=== PATIENT | female | born 1935 | race African-American/Black ===

== ENCOUNTER 2016-04-27 12:43 | Inpatient (IN) | payer MEDICARE, MEDICAID, OTHER ==
[~2016-04-27] VITALS: Ht 167.6 cm; Wt 68.0 kg
[~2016-04-27 12:43] MED LIST: ACIDOPHILUS-PE1 EACH PO; AGGRENOX1 CAP ORAL; APRESOLINE50 MG ORAL; ASPIRIN EC81 MG ORAL; BACTRIM DS TAB1 EAC1 ORAL; BENAZEPRIL HCL40 MG ORAL; CATAPRES0.1 MG ORAL; CENTRUM COMPLE1 EAC1 PO; DIABETA5 MG ORAL; ECOTRIN81 MG ORAL; FERROUS SULFAT325 MG ORAL; HEPARIN SO5000 UNIT2 SUBQ; HYDRALAZINE HC100 MG ORAL; HYDREA500 MG ORAL; KEFLEX750 MG PO; LEVOTHYROXINE125 MCG ORAL; LEVOTHYROXINE75 MCG ORAL; LIPITOR20 MG ORAL; LISINOPRIL20 MG ORAL; METFORMIN HCL1000 M1 ORAL; METOPROLOL SUCC50 MG ORAL; NAMENDA ORAL; NAMENDA10 MG ORAL; NORVASC5 MG ORAL; NOVOLOG100 UNITS1; NS Irrig 1000ml ONE; PLAVIX75 MG ORAL; PRAVASTATIN SOD20 M1 ORAL; RANITIDINE HCL150 MG ORAL; ROCEPHIN250 MG IM; SYNTHROID150 MCG ORAL; Sterile Water Irrig 1000ml IRRIG ONE; TYLENOL #21 EA ORAL; TYLENOL325 MG ORAL
[2016-04-27 14:14] VITALS: BP 124/74
[2016-04-27 14:43] LABS: MEAN CORPUSCULAR HEMOGLOBIN 26.4 PG (27.0-31.0); MEAN CORPUSCULAR HGB CONC 31.1 G/DL (32.0-36.0); MEAN CORPUSCULAR VOLUME 85 FL (80-99); MEAN PLATELET VOLUME 6.8 FL (6.5-10.1); PLATELET COUNT 857 K/UL (150-450); RED BLOOD COUNT 4.82 M/UL (4.20-5.40); RED CELL DISTRIBUTION WIDTH 17.2 % (11.6-14.8); WHITE BLOOD COUNT 11.2 K/UL (4.8-10.8)
[2016-04-27 14:51] LABS: INR 1.1 (0.9-1.1); PROTHROMBIN TIME 10.7 SEC (9.30-11.50)
[2016-04-27 14:59] LABS: ALANINE AMINOTRANSFERASE 8 U/L (3-33); ALBUMIN/GLOBULIN RATIO 0.6 (1.0-2.7); ANION GAP 15 (5-15); ASPARTATE AMINO TRANSFERASE 18 U/L (5-40); CALCIUM 9.6 mg/dL (8.6-10.2); CARBON DIOXIDE 24 mEQ/L (20-30); CHLORIDE 98 mEQ/L (98-107); CREATININE 0.6 mg/dL (0.5-0.9); HEMOLYSIS 64; POTASSIUM 4.9 mEQ/L (3.4-4.9); SODIUM 137 mEQ/L (135-145); TOTAL PROTEIN 7.6 g/dL (6.6-8.7)
[2016-04-27 15:15] VITALS: BP 142/44
[2016-04-27] MEDS ORDERED: Vancomycin 1gm inj IVPB ONE (15:16)
[2016-04-27 15:49] LABS: BAND NEUTROPHILS % (MANUAL) 1 % (0-8); BASOPHILS % (MANUAL) 1 % (0-2); EOSINOPHILS % (MANUAL) 5 % (0-3); LYMPHOCYTES % (MANUAL) 26 % (20-45); NEUTROPHILS % (MANUAL) 56 % (45-75); NUCLEATED RED BLOOD CELLS 1 /100 WBC; PLATELET ESTIMATE INCREASED; TOTAL CELLS COUNTED 100
[2016-04-27 15:50] LABS: ANISOCYTOSIS 2+; HYPOCHROMASIA 2+; PLATELET MORPHOLOGY NORMAL; POLYCHROMASIA 1+
--- NOTE | 2016-04-27 15:58 | Emergency Room Report ---
History of Present Illness General Chief Complaint: General Complaint Source: Medical Record, EMS, PMD Present Illness HPI This patient presents from a [facility] facility. She has a history of a chronic stage IV sacral decubitus ulcer. She is sent over by her primary care physician because of concern of infection and worsening of the ulcer. The ulcer had been revised and the flap was placed and the wound dehisced. The nursing staff is very concerned that the wound is getting worse and there is more discharge. The patient herself has no specific complaint. There is no fever or chills. There is no nausea or vomiting. Allergies: Coded Allergies: HYDROMORPHONE (Verified Allergy, Unknown, 09/21/14) MORPHINE (Unverified Allergy, Unknown, 04/27/16) Patient History Past Medical History: see triage record, DM, HTN, dementia Past Surgical History: other - Sacral DU flap placement Social History: Denies: alcohol use, drug use, smoking Reviewed Nursing Documentation: PMH: Agreed, PSxH: Agreed Nursing Documentation-PMH Past Medical History: No History, Except For Hx Hypertension: Yes Hx Diabetes: Yes Hx Cancer: No Hx Gastrointestinal Problems: Yes Hx Cerebrovascular Accident: Yes Hx Dementia: Yes Hx Memory Loss: Yes Hx Weakness: Yes Review of Systems All Other Systems: negative except mentioned in HPI Physical Exam Vital Signs Date Time Temp Pulse Resp B/P Pulse Ox O2 Delivery O2 Flow Rate FiO2 04/27/16 12:42 98.1 60 18 180/74 99 Room Air Sp02 EP Interpretation: reviewed, normal General Appearance: no apparent distress, alert, GCS 15, non-toxic Head: normocephalic, atraumatic Eyes: bilateral eye PERRL, bilateral eye normal inspection ENT: hearing grossly normal, normal pharynx, no angioedema, normal voice Neck: full range of motion, supple/symm/no masses Respiratory: chest non-tender, lungs clear, normal breath sounds, speaking full sentences Cardiovascular #1: regular rate, rhythm, no edema Gastrointestinal: normal bowel sounds, non tender, soft, non-distended, no guarding, no rebound Rectal: deferred Musculoskeletal: back normal, normal range of motion, non-tender Neurologic: alert, oriented x3, responsive, motor strength/tone normal, sensory intact, speech normal Psychiatric: mood/affect normal Skin: other - Stage IV sacral decubitus ulcer. The wound is edematous and erythematous with discharge and dehiscence of the flap. There is thick yellow discharge. Medical Decision Making Diagnostic Impression: Primary Impression: Decubitus ulcer, stage 4 with infection ER Course Patient has an ongoing stage IV decubitus ulcer. I am unsure of the progression of this decubitus ulcer, however it doesn't appear infected with surrounding edema and erythema. There is also dehiscence of the flap had been previously placed here. The patient will be admitted for further evaluation by the surgeon who initially placed the flap. Labs Test 04/27/16 14:15 White Blood Count 11.2 K/UL (4.8-10.8) Red Blood Count 4.82 M/UL (4.20-5.40) Hemoglobin 12.7 G/DL (12.0-16.0) Hematocrit 40.8 % (37.0-47.0) Mean Corpuscular Volume 85 FL (80-99) Mean Corpuscular Hemoglobin 26.4 PG (27.0-31.0) Mean Corpuscular Hemoglobin Concent 31.1 G/DL (32.0-36.0) Red Cell Distribution Width 17.2 % (11.6-14.8) Platelet Count 857 K/UL (150-450) Mean Platelet Volume 6.8 FL (6.5-10.1) Neutrophils (%) (Auto) % (45.0-75.0) Lymphocytes (%) (Auto) % (20.0-45.0) Monocytes (%) (Auto) % (1.0-10.0) Eosinophils (%) (Auto) % (0.0-3.0) Basophils (%) (Auto) % (0.0-2.0) Differential Total Cells Counted 100 Neutrophils % (Manual) 56 % (45-75) Lymphocytes % (Manual) 26 % (20-45) Monocytes % (Manual) 11 % (1-10) Eosinophils % (Manual) 5 % (0-3) Basophils % (Manual) 1 % (0-2) Band Neutrophils 1 % (0-8) Nucleated Red Blood Cells 1 /100 WBC Platelet Estimate Increased Platelet Morphology Normal Polychromasia 1+ Hypochromasia 2+ Anisocytosis 2+ Prothrombin Time 10.7 SEC (9.30-11.50) Prothromb Time International Ratio 1.1 (0.9-1.1) Activated Partial Thromboplast Time 25 SEC (23-33) Sodium Level 137 mEQ/L (135-145) Potassium Level 4.9 mEQ/L (3.4-4.9) Chloride Level 98 mEQ/L (98-107) Carbon Dioxide Level 24 mEQ/L (20-30) Anion Gap 15 (5-15) Blood Urea Nitrogen 15 mg/dL (7-23) Creatinine 0.6 mg/dL (0.5-0.9) Estimat Glomerular Filtration Rate mL/min (>60) Glucose Level 112 mg/dL (74-106) Calcium Level 9.6 mg/dL (8.6-10.2) Total Bilirubin 0.5 mg/dL (0.0-1.2) Aspartate Amino Transf (AST/SGOT) 18 U/L (5-40) Alanine Aminotransferase (ALT/SGPT) 8 U/L (3-33) Alkaline Phosphatase 53 U/L (35-104) Total Protein 7.6 g/dL (6.6-8.7) Albumin 3.1 g/dL (3.5-5.2) Globulin 4.5 g/dL Albumin/Globulin Ratio 0.6 (1.0-2.7) EKG Diagnostic Results Rate: normal Rhythm: NSR ST Segments: no acute changes Rhythm Strip Diag. Results EP Interpretation: yes Rate: 60's Rhythm: NSR, no PVC's, no ectopy Last Vital Signs Date Time Temp Pulse Resp B/P Pulse Ox O2 Delivery O2 Flow Rate FiO2 04/27/16 15:15 98.1 63 16 142/44 95 Room Air Disposition: ADMITTED INPATIENT Condition: Stable Referrals: ISIDORO BYRNE (PCP) DEIRDRE SIMPSON D.O. Apr 27, 2016 15:58
[2016-04-27 20:00] VITALS: BP 146/70
[2016-04-27] MEDS: Atorvastatin 20mg tab ORAL SCH (20:07)
[2016-04-27] MEDS: Heparin 5000 units/ml inj SUBQ SCH (20:09)
[2016-04-27] MEDS: NovoLOG Insulin Flexpen SUBQ SCH (21:00)
[2016-04-27] MEDS: Lactobacillus-GG tablet ORAL SCH (21:23)
[2016-04-27] MEDS: Aggrenox Cap ORAL SCH (22:17)
[2016-04-27] MEDS ORDERED: Cefepime 1gm vial ONE (23:52)
[2016-04-27 23:55] VITALS: BP 128/69
--- NOTE | 2016-04-28 03:28 | History and Physical Report ---
DATE OF ADMISSION: 04/27/2016 REASON FOR ADMISSION: Wound dehiscence. HISTORY OF PRESENT ILLNESS: This is an 81-year-old female, who has been at a detention facility. She has a stage IV sacral decubitus and recently underwent debridement and flap placement. The wound apparently dehisced and despite wound care at the detention facility, has noted increasing drainage and more dehiscence. The patient has not had any fever or chills. Once, she has had somewhat of a decreased appetite. She has not had any other constitutional symptoms. PAST MEDICAL HISTORY: Cerebrovascular disease with prior cerebrovascular accident, multi-infarct dementia, non-insulin dependant diabetes mellitus, chronic kidney disease, gastroesophageal reflux disease, hypertension with hypertensive heart disease, history of malignant-range high blood pressure, diabetic neuropathy, hypothyroidism. MEDICATIONS: Prior to admission, reviewed and reconciled. ALLERGIES: None. SOCIAL HISTORY: No smoking, alcohol, or substance abuse. She lives with son. FAMILY HISTORY: Noncontributory. REVIEW OF SYSTEMS: A 12-point review of systems performed. All systems negative other than data noted above. PHYSICAL EXAMINATION: VITAL SIGNS: Afebrile, blood pressure 180/74, pulse 60, and respirations 18. HEENT: Temporal wasting. Pale conjunctivae. Arcus senilis. Oropharynx clear. Mucous membranes dry. NECK: Supple. Jugular venous pressure normal. LUNGS: Clear. CARDIAC: Regular rhythm and rate. Normal S1 and S2 with a fourth heart sound. ABDOMEN: Soft and nontender. EXTREMITIES: No pitting edema. Sacral ulcer sites has edema, erythema, and yellow discharge. LABORATORY DATA: White count 11.2 and hemoglobin 12.7. Sodium 137, potassium 4.9, bicarbonate 34, BUN 15, and creatinine 0.6. IMPRESSION: 1. Infected sacral decubitus, rule out osteomyelitis. 2. Status post flap with wound dehiscence. 3. Type 2 diabetes mellitus. 4. Chronic kidney disease. 5. Hypertensive heart disease. 6. Hypothyroidism. 7. Cerebrovascular disease with multiple cerebrovascular accidents and dementia. PLAN: 1. Culture. 2. Wound care evaluation. 3. Surgical evaluation. 4. Empiric antibiotics. 5. Titrate antihypertensive regimen. 6. Titrate insulin coverage for blood glucose control. 7. Further recommendation will follow once preliminary studies are available and consultations have been reviewed. Darius Duran M.D. DR: SARAI JOB#: [id number] CC:
[2016-04-28 04:00] VITALS: BP 131/73
[2016-04-28] MEDS: Lactobacillus-GG tablet ORAL SCH ×3 (05:47→21:09)
[2016-04-28] MEDS: NovoLOG Insulin Flexpen SUBQ SCH ×4 (05:47→21:11)
[2016-04-28 08:00] VITALS: BP 132/76
[2016-04-28] MEDS: Aggrenox Cap ORAL SCH ×2 (09:00→21:09)
[2016-04-28] MEDS: metFORMIN 500mg tab ORAL SCH ×2 (09:01→17:43)
[2016-04-28] MEDS: Memantine 10mg tab ORAL SCH (09:01)
[2016-04-28] MEDS: Lisinopril 20mg tab ORAL SCH (09:03)
[2016-04-28] MEDS: Heparin 5000 units/ml inj SUBQ SCH ×2 (09:04→21:12)
[2016-04-28 12:00] VITALS: BP 152/59
--- NOTE | 2016-04-28 15:28 | Consultation ---
DATE OF CONSULTATION: 04/28/2016 INFECTIOUS DISEASES CONSULTATION REFERRING PHYSICIAN: Darius Duran M.D. REASON FOR CONSULTATION: Infected decubitus ulcers. HISTORY OF PRESENTING ILLNESS: This is an 81-year-old lady with history of CVA, dementia, diabetes, chronic kidney disease who recently had a sacral decubitus ulcer debridement and flap placement, apparently the wound has dehisced and she has had increasing drainage and an Infectious Diseases consultation has been obtained for antibiotics. PAST MEDICAL HISTORY: 1. History of CVA. 2. Dementia. 3. Diabetes. 4. Chronic kidney disease. 5. GERD. 6. Hypertension. 7. Diabetic neuropathy. 8. Hypothyroidism. MEDICATIONS: As an inpatient, she is on IV vancomycin, ferrous sulfate, lisinopril, Namenda, metformin metoprolol, levothyroxine, cefepime, Lactobacillus, amlodipine, Lipitor, dipyridamole aspirin, subcutaneous heparin, insulin, Ultram, and Tylenol. ALLERGIES: 1. Hydromorphone. 2. Morphine. SOCIAL HISTORY: No history of smoking, alcohol, or drug use. FAMILY HISTORY: Noncontributory. REVIEW OF SYSTEMS: Unable to obtain currently. PHYSICAL EXAMINATION: VITAL SIGNS: Temperature of 97.7, T-max of 98.1, pulse of 77, respiratory rate 18, blood pressure 139/79, O2 saturation of 98%. HEENT: Pupils are equally reactive to light and accommodation. Mouth appears clean without thrush. NECK: Supple. No adenopathy. No JVD. CARDIOVASCULAR: Regular rate and rhythm. No murmurs. LUNGS: Clear to auscultation bilaterally. No crackles. No wheezes. ABDOMEN: Soft and nontender. No organomegaly. EXTREMITIES: No cyanosis. No clubbing. No edema. Skin flap breakdown noted over the sacrum. LABORATORY DATA: White count 11.2, hemoglobin 12.7, hematocrit 40.8, MCV 85, platelet count . Sodium 137, potassium 4.9, chloride 98, bicarbonate 24, BUN 15, creatinine 0.6, glucose 112. Calcium 9.6. Total bilirubin 0.5, AST 18, ALT 8, alkaline phosphatase 53, total protein 7.6, and albumin 3.1. ASSESSMENT: 1. This is an 81-year-old lady with history of cerebrovascular accident, hypertension, diabetes who came in with breakdown of the sacral flap after undergoing debridement for sacral decubitus ulcer, would be concerned regarding recurrent infection 2. Hypertension. PLAN: 1. Continue vancomycin and cefepime. 2. We would suggest a plastic surgery evaluation. 3. We will follow up cultures. I would like to thank, Dr. Duran, for this consultation. Rhett Torres M.D. DR: Ann-Marie JOB#: [id number] CC: Darius Duran M.D.
[2016-04-28] MEDS: Vancomycin 1gm in D5W 250ml IVPB SCH (15:59)
[2016-04-28 16:00] VITALS: BP 134/61
--- NOTE | 2016-04-28 16:50 | Anethesia Preoperative Eval ---
Anesthesia Pre-op PMH/ROS General Date of Evaluation: Apr 28, 2016 Time of Evaluation: 16:32 Anesthesiologist: Sidney ASA Score: ASA 4 Mallampati Score Class I : Soft palate, uvula, fauces, pillars visible Class II: Soft palate, uvula, fauces visible Class III: Soft palate, base of uvula visible Class IV: Only hard plate visible Mallampati Classification: Class III Surgeon: Doris Diagnosis: Sacral Decubitus Ulcer Surgical Procedure: Repair Sacral Decubitus Ulcer Anesthesia History: none Social History: smoking Family History: no anesthesia problems Allergies: Coded Allergies: HYDROMORPHONE (Verified Allergy, Unknown, 09/21/14) MORPHINE (Unverified Allergy, Unknown, 04/27/16) Medications: see eMAR Past Medical History Cardiovascular: Reports: HTN Gastrointestinal/Genitourinary: Reports: CRI, GERD Neurologic/Psychiatric: Reports: CVA, dementia Endocrine: Reports: DM, hypothyroidism HEENT: Reports: cataract (L), cataract (R) PSxH Narrative: Sacral Flap Anesthesia Pre-op Phys. Exam Physician Exam Last Vital Signs Date Time Temp Pulse Resp B/P Pulse Ox O2 Delivery O2 Flow Rate FiO2 04/28/16 12:00 98.2 61 22 152/59 98 Room Air Constitutional: NAD Neurologic: CN 2-12 intact Cardiovascular: RRR Respiratory: CTA Gastrointestinal: S/NT/ND Airway Exam Mallampati Score: Class III MO: limited ROM: limited Teeth: missing Anesthesia Pre-op A/P Risk Assessment & Plan Assessment: ASA 4 Plan: GA Status Change Before Surgery: No Pre-Antibiotics Drug: Chidi Peterson MD Apr 28, 2016 16:50
--- NOTE | 2016-04-28 18:53 | Wound Care Consultation ---
Wound Assessment Wound Assessment : Wound Present on Admission: Yes New Wound: No Status Change of Wound: No Wound Location Body Site Modif: mid Wound Location Body Site: sacral Wound Type: pressure ulcer Gloria Test: Does not Gloria Pressure Ulcer Stage: IV/unstageable Wound Thickness: Full Thickness Wound Length: 8.0 Wound Width: 7.0 Wound Depth: 3.0 Percent of Wound [place]/Red: 80 Percent of Wound Bed Yellow/Wh: 20 Wound Drainage Description: Serosanguineous Wound Drainage Amount: Moderate Wound Drainage Odor: None/Absent Tissue Surrounding Wound: Macerated Wound Undermining at 12:00: 2.5 Wound Undermining at 3:00: 4.5 Wound Undermining at 6:00: 4.0 Wound General Appearance: Reddened, Draining, Unapproximated Wound Comment #1 Sacral stage IV pressure ulcer. s/p flap and debridement. Flap with viable tissue. Recommendation -Local wound care as ordered by Dr George every 12hrs wet to dry using Dakin' s solutions -Keep clean and dry -Turn and reposition -Optimize nutrition -Offload both heels -Low air loss overlay mattress -Assess and f/u with ISRAEL Hernandez RN Apr 28, 2016 18:53
--- NOTE | 2016-04-28 19:08 | Consultation ---
DATE OF CONSULTATION: FOLLOWUP SURGICAL CONSULTATION HISTORY OF PRESENT ILLNESS: The patient is an elderly female with multiple medical problems, chronic dementia, and immobility. I did a flap up on her sacral area for a nonhealing wound which was done approximately a month ago. She had some breakdown of the area after surgery which appeared initially at one week ago. She then cared for in a [facility] and at this point was admitted because there was concern about infection of the wound. The other issue was that the dehiscence was increasing. I evaluated the wound and discussed the plan with the wound care nurse. The wound is actually relatively clean and I will use Dakin solution wet-to-dry dressings over the next several days to prepare the wound for surgical closure. It should be possible to repair the open portion of the wound at that point. I will re-evaluate the wound over the course of the next several days to determine the appropriate time for the closure. Herbert George M.D. DR: Sanjay JOB#: [id number] CC:
[2016-04-28 20:00] VITALS: BP 144/64
[2016-04-28] MEDS: Atorvastatin 20mg tab ORAL SCH (21:10)
[2016-04-28] MEDS: Dakin's 0.125% Soln (Quarter Strength) 16oz TOPIC SCH (21:15)
[2016-04-29] VITALS: BP 135/67
[2016-04-29 04:00] VITALS: BP 141/74
[2016-04-29] MEDS: NovoLOG Insulin Flexpen SUBQ SCH ×4 (05:59→21:18)
[2016-04-29] MEDS: Lactobacillus-GG tablet ORAL SCH ×3 (05:59→21:16)
[2016-04-29 07:13] LABS: EOSINOPHILS % (AUTO) 2.3 % (0.0-3.0); LYMPHOCYTES % (AUTO) 41.4 % (20.0-45.0); MEAN CORPUSCULAR HEMOGLOBIN 26.9 PG (27.0-31.0); MEAN CORPUSCULAR HGB CONC 33.3 G/DL (32.0-36.0); MEAN CORPUSCULAR VOLUME 81 FL (80-99); MEAN PLATELET VOLUME 6.6 FL (6.5-10.1); MONOCYTES % (AUTO) 8.6 % (1.0-10.0); NEUTROPHILS % (AUTO) 45.8 % (45.0-75.0); PLATELET COUNT 770 K/UL (150-450); RED BLOOD COUNT 4.03 M/UL (4.20-5.40); RED CELL DISTRIBUTION WIDTH 16.8 % (11.6-14.8); WHITE BLOOD COUNT 9.8 K/UL (4.8-10.8)
[2016-04-29 07:22] LABS: ALANINE AMINOTRANSFERASE 5 U/L (3-33); ALBUMIN/GLOBULIN RATIO 0.7 (1.0-2.7); ANION GAP 15 (5-15); ASPARTATE AMINO TRANSFERASE 11 U/L (5-40); CALCIUM 9.2 mg/dL (8.6-10.2); CARBON DIOXIDE 25 mEQ/L (20-30); CHLORIDE 98 mEQ/L (98-107); CREATININE 0.5 mg/dL (0.5-0.9); HEMOLYSIS 1; MAGNESIUM 1.2 mg/dL (1.7-2.5); POTASSIUM 4.1 mEQ/L (3.4-4.9); SODIUM 138 mEQ/L (135-145); TOTAL PROTEIN 6.8 g/dL (6.6-8.7)
[2016-04-29 08:25] VITALS: BP 135/57
[2016-04-29] MEDS: metFORMIN 500mg tab ORAL SCH ×2 (08:52→18:07)
[2016-04-29] MEDS: Aggrenox Cap ORAL SCH ×2 (08:52→21:16)
[2016-04-29] MEDS: traMADol 50mg tab ORAL PRN (08:54)
[2016-04-29] MEDS: Memantine 10mg tab ORAL SCH (08:54)
[2016-04-29] MEDS: Lisinopril 20mg tab ORAL SCH (08:56)
[2016-04-29] MEDS: Heparin 5000 units/ml inj SUBQ SCH ×2 (08:58→21:18)
[2016-04-29] MEDS: Dakin's 0.125% Soln (Quarter Strength) 16oz TOPIC SCH ×2 (09:19→21:15)
--- NOTE | 2016-04-29 09:49 | Wound Care Consultation ---
Wound Assessment Wound Assessment : Wound Present on Admission: Yes New Wound: No Status Change of Wound: No Wound Location Body Site Modif: mid Wound Location Body Site: sacral Wound Type: pressure ulcer Gloria Test: Does not Gloria Pressure Ulcer Stage: IV/unstageable Wound Thickness: Full Thickness Wound Length: 8.0 Wound Width: 7.0 Wound Depth: 3.0 Percent of Wound [place]/Red: 80 Percent of Wound Bed Yellow/Wh: 20 Wound Drainage Description: Serosanguineous Wound Drainage Amount: Moderate Wound Drainage Odor: Mild Odor Tissue Surrounding Wound: Macerated Wound Undermining at 12:00: 2.5 Wound Undermining at 3:00: 4.5 Wound Undermining at 6:00: 4.0 Wound General Appearance: Reddened, Draining, Unapproximated Wound Comment Wound care dressing provided as ordered. Tolerated treatment well. Flap with viable Tissue. Patient repositioned to offload Sacral site. Patient bed in lowest position and bed alarm in place,call light placed within reach. SMAMIE BARLOW Apr 29, 2016 09:49
[2016-04-29 12:03] VITALS: BP 132/60
[2016-04-29] MEDS: Vancomycin 1gm in D5W 250ml IVPB SCH (14:08)
--- NOTE | 2016-04-29 15:14 | Infectious Diseases Prog Note ---
Assessment/Plan Assessment/Plan A; infected sacral ulcer Wound dehiscence DM HPN MRSA & VRE colonization P: continue Cefepime & Vancomycin will f/u cultures Subjective ROS Limited/Unobtainable: Yes Allergies: Coded Allergies: HYDROMORPHONE (Verified Allergy, Unknown, 09/21/14) MORPHINE (Unverified Allergy, Unknown, 04/27/16) Objective Vital Signs Last 24 Hour Vital Signs Date Time Temp Pulse Resp B/P Pulse Ox O2 Delivery O2 Flow Rate FiO2 04/29/16 12:03 98.5 76 20 132/60 98 Room Air 04/29/16 08:56 135/57 04/29/16 08:55 74 135/57 04/29/16 08:55 74 135/57 04/29/16 08:25 98.4 74 20 135/57 98 Room Air 04/29/16 04:00 97.7 70 19 141/74 96 Room Air 04/29/16 00:00 97.7 68 20 135/67 97 Room Air 04/28/16 21:10 76 144/64 04/28/16 20:00 98.0 76 18 144/64 97 Room Air 04/28/16 16:00 97.9 72 18 134/61 97 Room Air Height (Feet): 5 Height (Inches): 6.00 Weight (Pounds): 150 General Appearance: no acute distress HEENT: mucous membranes moist Respiratory/Chest: lungs clear Cardiovascular: normal rate Abdomen: soft, non tender Genitourinary: other - Patel catheter Skin: ulcers, other - sacral Neurologic/Psychiatric: alert, responsive Microbiology Date/Time Source Procedure Growth Status 04/28/16 12:00 Wound Gram Stain - Final Resulted 04/28/16 12:00 Wound Wound Culture Pending Resulted 04/27/16 14:28 Nasal Nares MRSA Culture - Final Staphylococcus Aureus - Mrsa Complete 04/27/16 14:28 Rectum VRE Culture - Final Enterococcus Faecium - Vre Complete Laboratory Tests Test 04/29/16 04:45 White Blood Count 9.8 K/UL (4.8-10.8) Red Blood Count 4.03 M/UL (4.20-5.40) L Hemoglobin 10.8 G/DL (12.0-16.0) L Hematocrit 32.5 % (37.0-47.0) L Mean Corpuscular Volume 81 FL (80-99) Mean Corpuscular Hemoglobin 26.9 PG (27.0-31.0) L Mean Corpuscular Hemoglobin Concent 33.3 G/DL (32.0-36.0) Red Cell Distribution Width 16.8 % (11.6-14.8) H Platelet Count 770 K/UL (150-450) H Mean Platelet Volume 6.6 FL (6.5-10.1) Neutrophils (%) (Auto) 45.8 % (45.0-75.0) Lymphocytes (%) (Auto) 41.4 % (20.0-45.0) Monocytes (%) (Auto) 8.6 % (1.0-10.0) Eosinophils (%) (Auto) 2.3 % (0.0-3.0) Basophils (%) (Auto) 2.0 % (0.0-2.0) Sodium Level 138 mEQ/L (135-145) Potassium Level 4.1 mEQ/L (3.4-4.9) Chloride Level 98 mEQ/L (98-107) Carbon Dioxide Level 25 mEQ/L (20-30) Anion Gap 15 (5-15) Blood Urea Nitrogen 12 mg/dL (7-23) Creatinine 0.5 mg/dL (0.5-0.9) Estimat Glomerular Filtration Rate mL/min (>60) Glucose Level 97 mg/dL (74-106) Calcium Level 9.2 mg/dL (8.6-10.2) Magnesium Level 1.2 mg/dL (1.7-2.5) L Total Bilirubin 0.4 mg/dL (0.0-1.2) Aspartate Amino Transf (AST/SGOT) 11 U/L (5-40) Alanine Aminotransferase (ALT/SGPT) 5 U/L (3-33) Alkaline Phosphatase 46 U/L (35-104) Total Protein 6.8 g/dL (6.6-8.7) Albumin 2.9 g/dL (3.5-5.2) L Globulin 3.9 g/dL Albumin/Globulin Ratio 0.7 (1.0-2.7) L Thyroid Stimulating Hormone (TSH) 15.720 uIU/mL (0.300-4.500) Current Medications Medications (Trade) Dose Ordered Sig/Rupert Route PRN Reason Start Time Stop Time Status Last Admin Dose Admin Acetaminophen (Tylenol) 650 mg Q6H PRN ORAL Mild Pain/Temp > 100.5 04/27/16 19:30 05/27/16 19:29 Amlodipine Besylate (Norvasc) 5 mg Q12HR ORAL 04/27/16 21:00 05/27/16 20:59 04/29/16 08:55 Atorvastatin Calcium (Lipitor) 20 mg BEDTIME ORAL 04/27/16 21:00 05/27/16 20:59 04/28/16 21:10 Cefepime HCl/ Dextrose (Maxipime/D5W 50ml) 50 ml @ 100 mls/hr Q24H IVPB 04/27/16 23:30 05/04/16 23:29 04/28/16 22:51 Dextrose (Dextrose 50%) STAT PRN IV Hypoglycemia 04/27/16 20:00 05/27/16 19:59 Dipyridamole/ Aspirin (Aggrenox) 1 cap Q12HR ORAL 04/27/16 21:00 05/27/16 20:59 04/29/16 08:52 Ferrous Sulfate (Feosol) 325 mg THREE TIMES A DAY ORAL 04/28/16 09:00 05/28/16 08:59 04/29/16 14:07 Heparin Sodium (Porcine) (Heparin 5000 units/ml) 5,000 units EVERY 12 HOURS SUBQ 04/27/16 21:00 05/27/16 20:59 04/29/16 08:58 Insulin Aspart (NovoLOG) BEFORE MEALS AND HS SUBQ 04/27/16 21:00 05/27/16 20:59 04/29/16 11:46 Lactobacillus Acidophilus (Culturelle) 1 tab Q8HR ORAL 04/27/16 22:00 05/27/16 21:59 04/29/16 14:08 Levothyroxine Sodium (Synthroid) 150 mcg DAILY@0630 ORAL 04/28/16 06:30 05/28/16 06:29 04/29/16 05:59 Lisinopril (Prinivil) 40 mg DAILY ORAL 04/28/16 09:00 05/28/16 08:59 04/29/16 08:56 Memantine (Namenda) 10 mg DAILY ORAL 04/28/16 09:00 05/28/16 08:59 04/29/16 08:54 Metformin HCl (Glucophage) 1,000 mg BID ORAL 04/28/16 09:00 05/28/16 08:59 04/29/16 08:52 Metoprolol Succinate 25 mg 25 mg DAILY ORAL 04/28/16 09:00 05/28/16 08:59 04/29/16 08:55 Sodium Hypochlorite (Dakin's Quarter Strength) 1 applic EVERY 12 HOURS TOPIC 04/28/16 21:00 05/28/16 20:59 04/29/16 09:19 Tramadol HCl (Ultram) 50 mg TID PRN ORAL SEVERE PAIN 04/27/16 20:00 05/04/16 19:59 04/29/16 08:54 Vancomycin HCl 1 ea 1 ea DAILY PRN MISC Per rx protocol 04/27/16 23:30 05/27/16 23:29 Vancomycin HCl/ Dextrose (Vancomycin/D5W 250ml) 250 ml @ 167 mls/hr Q24H IVPB 04/28/16 15:00 05/03/16 14:59 04/29/16 14:08 EFRAIN GARCIA Apr 29, 2016 15:14
[2016-04-29 15:51] VITALS: BP 133/66
[2016-04-29 20:28] VITALS: BP 120/57
[2016-04-29] MEDS: Atorvastatin 20mg tab ORAL SCH (21:16)
[2016-04-30] VITALS: BP 122/51
--- NOTE | 2016-04-30 02:08 | Progress Note ---
DATE: 04/28/2016 INTERNAL MEDICINE PROGRESS NOTE Late entry for 04/28/2016. SUBJECTIVE: Case was reviewed with Dr. Herbert George, the surgeon regarding the patient's decubitus and wound dehiscence of flap. The patient is in no distress. OBJECTIVE: VITAL SIGNS: Blood pressure 132/76, pulse 72, respirations 18, afebrile, and oxygen 98% on room air. NECK: Supple. Oropharynx clear. LUNGS: Clear. CARDIAC: Regular. Normal S1, S2. ABDOMEN: Soft. No edema. Wound is pictured. IMPRESSION: 1. Sacral flap due to prior decubitus. 2. Status post flap with wound dehiscence. 3. Hypothyroidism. 4. Pha-hjejjrv-yhowhndrx diabetes mellitus. 5. Hypertensive heart disease. 6. Cerebrovascular disease with multi-infarct dementia. PLAN: 1. Antibiotics. 2. Followup cultures. 3. Revision of flap to be completed in several days as the surgeon feels that the tissue is viable. 4. Titrate diabetic regimen based on glucose parameters. 5. Check thyroid function and continue thyroid replacement. Darius Duran M.D. DR: COREY JOB#: [id number] CC:
--- NOTE | 2016-04-30 04:18 | Progress Note ---
April 29, 2016 INTERNAL MEDICINE PROGRESS NOTE SUBJECTIVE: The patient is in no distress. Wound care evaluation was noted. The patient is scheduled for flap revision on 05/01/2016. OBJECTIVE: VITAL SIGNS: Blood pressure 135/57, pulse 74, and respirations 20. NECK: Supple. LUNGS: Clear. CARDIAC: Regular. Normal S1 and S2. ABDOMEN: Soft. Wound dressed. EXTREMITIES: Without edema. LABORATORY DATA: Magnesium 1.2. TSH 15. IMPRESSION: 1. Sacral decubitus, status post flap, now with wound dehiscence. 2. Hypothyroidism, secondary to poor compliance with oral replacement therapy. 3. Ieu-yoasonh-bttwofkef diabetes mellitus with complications. 4. Hypomagnesemia. 5. Hypertension with hypertensive heart disease. 6. Cerebrovascular disease with multiinfarct dementia. PLAN: 1. Thyroid replacement in the morning one hour prior to meals. 2. Skin/wound care. 3. Await flap revision. 4. Antimicrobials per Infectious Disease fundraising consultant. 5. IV magnesium replacement. 6. Insulin coverage by sliding scale. Darius Duran M.D. DR: Rafael JOB#: [id number] CC: ELAINE
[2016-04-30] MEDS: Lactobacillus-GG tablet ORAL SCH ×3 (06:24→21:52)
[2016-04-30] MEDS: NovoLOG Insulin Flexpen SUBQ SCH ×4 (06:28→22:01)
[2016-04-30 08:00] VITALS: BP 133/63
--- NOTE | 2016-04-30 09:05 | General Progress Note ---
Assessment/Plan Problem List: (1) Hyperglycemia ICD Codes: R73.9 - Hyperglycemia SNOMED: 43440666 (2) Altered mental status ICD Codes: R41.82 - Altered mental status SNOMED: 144662441 Qualifiers: Qualified Codes: R41.82 - Altered mental status, unspecified (3) Sepsis ICD Codes: A41.9 - Sepsis SNOMED: 61838278 (4) Altered mental status ICD Codes: R41.82 - Altered mental status, unspecified SNOMED: 210002992 Qualifiers: Qualified Codes: R41.0 - Disorientation, unspecified (5) Stroke ICD Codes: I63.9 - Stroke SNOMED: 771263836 Qualifiers: (6) Hypothyroid ICD Codes: E03.9 - Hypothyroid SNOMED: 12259097 Qualifiers: Qualified Codes: E03.9 - Hypothyroidism, unspecified (7) Decubitus ulcer, stage 4 with infection ICD Codes: L89.94 - Pressure ulcer of unspecified site, stage 4 SNOMED: 2871765, 854153866 Status: stable Assessment/Plan iv abx per ID wound care flap revision per surgery monitor BS insulin coverage antiplt rx Subjective ROS Limited/Unobtainable: No Constitutional: Reports: malaise, weakness HEENT: Reports: no symptoms Cardiovascular: Reports: no symptoms Respiratory: Reports: no symptoms Gastrointestinal/Abdominal: Reports: no symptoms Genitourinary: Reports: no symptoms Neurologic/Psychiatric: Reports: pre-existing deficit Endocrine: Reports: no symptoms Hematologic/Lymphatic: Reports: anemia Allergies: Coded Allergies: HYDROMORPHONE (Verified Allergy, Unknown, 09/21/14) MORPHINE (Unverified Allergy, Unknown, 04/27/16) All Systems: reviewed and negative except above Subjective events noted. admitted woth wound infection. denies pain. no fever or chills. surgery, ID and cards noted. Objective Last 24 Hour Vital Signs Date Time Temp Pulse Resp B/P Pulse Ox O2 Delivery O2 Flow Rate FiO2 04/30/16 08:00 97.9 70 18 133/63 98 Room Air 04/30/16 00:00 97.7 72 18 122/51 94 Room Air 04/29/16 21:16 71 120/57 04/29/16 20:28 97.5 71 18 120/57 94 Room Air 04/29/16 15:51 97.9 72 20 133/66 94 Room Air 04/29/16 12:03 98.5 76 20 132/60 98 Room Air Intake and Output 04/29/16 04/30/16 19:00 07:00 Intake Total 1127 ml 570 ml Output Total 500 ml 650 ml Balance 627 ml -80 ml Intake Oral 960 ml 220 ml IV Total 167 ml 350 ml Output Urine Total 500 ml 650 ml Height (Feet): 5 Height (Inches): 6.00 Weight (Pounds): 150 General Appearance: WD/WN, alert Neck: supple Cardiovascular: regular rhythm Respiratory/Chest: chest wall non-tender, lungs clear, normal breath sounds, no respiratory distress, no accessory muscle use Abdomen: normal bowel sounds, non tender, soft, no organomegaly, no mass Edema: no edema noted Arm (L), no edema noted Arm (R), no edema noted Leg (L), no edema noted Leg (R), no edema noted Pedal (L), no edema noted Pedal (R), no edema noted Generalized Objective stg4 sacral wound flap with dehiscence ISIDORO BYRNE Apr 30, 2016 09:05
[2016-04-30] MEDS: Aggrenox Cap ORAL SCH ×2 (09:17→21:00)
[2016-04-30] MEDS: Lisinopril 20mg tab ORAL SCH (09:18)
[2016-04-30] MEDS: metFORMIN 500mg tab ORAL SCH ×2 (09:21→18:15)
[2016-04-30] MEDS: Memantine 10mg tab ORAL SCH (09:24)
[2016-04-30] MEDS: Heparin 5000 units/ml inj SUBQ SCH ×2 (09:26→20:57)
[2016-04-30] MEDS: Dakin's 0.125% Soln (Quarter Strength) 16oz TOPIC SCH ×2 (10:19→21:52)
--- NOTE | 2016-04-30 11:34 | Infectious Diseases Prog Note ---
Assessment/Plan Assessment/Plan A; infected sacral ulcer Wound dehiscence DM HPN MRSA & VRE colonization P: continue Cefepime & Vancomycin will f/u cultures Subjective ROS Limited/Unobtainable: Yes Constitutional: Reports: no symptoms Gastrointestinal/Abdominal: Reports: no symptoms Musculoskeletal: Reports: other - in buttock area, pain Allergies: Coded Allergies: HYDROMORPHONE (Verified Allergy, Unknown, 09/21/14) MORPHINE (Unverified Allergy, Unknown, 04/27/16) Objective Vital Signs Last 24 Hour Vital Signs Date Time Temp Pulse Resp B/P Pulse Ox O2 Delivery O2 Flow Rate FiO2 04/30/16 09:19 70 133/63 04/30/16 09:18 133/63 04/30/16 09:17 70 133/63 04/30/16 08:00 97.9 70 18 133/63 98 Room Air 04/30/16 00:00 97.7 72 18 122/51 94 Room Air 04/29/16 21:16 71 120/57 04/29/16 20:28 97.5 71 18 120/57 94 Room Air 04/29/16 15:51 97.9 72 20 133/66 94 Room Air 04/29/16 12:03 98.5 76 20 132/60 98 Room Air Height (Feet): 5 Height (Inches): 6.00 Weight (Pounds): 150 General Appearance: no acute distress HEENT: mucous membranes moist Respiratory/Chest: lungs clear Cardiovascular: normal rate Abdomen: soft, non tender Extremities: no edema Skin: ulcers Neurologic/Psychiatric: alert, responsive Microbiology Date/Time Source Procedure Growth Status 04/28/16 12:00 Wound Gram Stain - Final Resulted 04/28/16 12:00 Wound Culture - Preliminary Gram Negative Bacillus 1 Gram Negative Bacillus 2 Staphylococcus Species Resulted 04/27/16 14:28 Nasal Nares MRSA Culture - Final Staphylococcus Aureus - Mrsa Complete 04/27/16 14:28 Rectum VRE Culture - Final Enterococcus Faecium - Vre Complete Current Medications Medications (Trade) Dose Ordered Sig/Rupert Route PRN Reason Start Time Stop Time Status Last Admin Dose Admin Acetaminophen (Tylenol) 650 mg Q6H PRN ORAL Mild Pain/Temp > 100.5 04/27/16 19:30 05/27/16 19:29 Amlodipine Besylate (Norvasc) 5 mg Q12HR ORAL 04/27/16 21:00 05/27/16 20:59 04/30/16 09:17 Atorvastatin Calcium (Lipitor) 20 mg BEDTIME ORAL 04/27/16 21:00 05/27/16 20:59 04/29/16 21:16 Cefepime HCl/ Dextrose (Maxipime/D5W 50ml) 50 ml @ 100 mls/hr Q24H IVPB 04/27/16 23:30 05/04/16 23:29 04/30/16 00:43 Dextrose (Dextrose 50%) STAT PRN IV Hypoglycemia 04/27/16 20:00 05/27/16 19:59 Dipyridamole/ Aspirin (Aggrenox) 1 cap Q12HR ORAL 04/27/16 21:00 05/27/16 20:59 04/30/16 09:17 Ferrous Sulfate (Feosol) 325 mg THREE TIMES A DAY ORAL 04/28/16 09:00 05/28/16 08:59 04/30/16 09:18 Heparin Sodium (Porcine) (Heparin 5000 units/ml) 5,000 units EVERY 12 HOURS SUBQ 04/27/16 21:00 05/27/16 20:59 04/30/16 09:26 Insulin Aspart (NovoLOG) BEFORE MEALS AND HS SUBQ 04/27/16 21:00 05/27/16 20:59 04/30/16 06:28 Lactobacillus Acidophilus (Culturelle) 1 tab Q8HR ORAL 04/27/16 22:00 05/27/16 21:59 04/30/16 09:19 Levothyroxine Sodium (Synthroid) 150 mcg DAILY@0630 ORAL 04/28/16 06:30 05/28/16 06:29 04/30/16 06:24 Lisinopril (Prinivil) 40 mg DAILY ORAL 04/28/16 09:00 05/28/16 08:59 04/30/16 09:18 Memantine (Namenda) 10 mg DAILY ORAL 04/28/16 09:00 05/28/16 08:59 04/30/16 09:24 Metformin HCl (Glucophage) 1,000 mg BID ORAL 04/28/16 09:00 05/28/16 08:59 04/30/16 09:21 Metoprolol Succinate 25 mg 25 mg DAILY ORAL 04/28/16 09:00 2/5/17 08:59 04/30/16 09:19 Sodium Hypochlorite (Dakin's Quarter Strength) 1 applic EVERY 12 HOURS TOPIC 04/28/16 21:00 05/28/16 20:59 04/30/16 10:19 Tramadol HCl (Ultram) 50 mg TID PRN ORAL SEVERE PAIN 04/27/16 20:00 05/04/16 19:59 04/29/16 08:54 Vancomycin HCl 1 ea 1 ea DAILY PRN MISC Per rx protocol 04/27/16 23:30 05/27/16 23:29 Vancomycin HCl/ Dextrose (Vancomycin/D5W 250ml) 250 ml @ 167 mls/hr Q24H IVPB 04/28/16 15:00 05/03/16 14:59 04/29/16 14:08 EFRAIN GARCIA Apr 30, 2016 11:34
[2016-04-30 12:00] VITALS: BP 119/62
[2016-04-30] MEDS: Vancomycin 1gm in D5W 250ml IVPB SCH ×2 (14:44→16:52)
--- NOTE | 2016-04-30 14:58 | Cardiology Report ---
APPROVED REPORT EKG Measurement Heart [id number] [id number] Normal sinus rhythm Cannot rule out Anterior infarct, age undetermined Abnormal ECG
[2016-04-30 16:00] VITALS: BP 110/58
[2016-04-30 20:00] VITALS: BP 114/47
[2016-04-30] MEDS: Atorvastatin 20mg tab ORAL SCH (21:51)
[2016-05-01] VITALS (11 sets, daily range): BP systolic 102–133; BP diastolic 53–72
[2016-05-01] MEDS: NovoLOG Insulin Flexpen SUBQ SCH ×4 (06:30→21:23)
[2016-05-01 06:34] LABS: BASOPHILS % (AUTO) 1.6 % (0.0-2.0); EOSINOPHILS % (AUTO) 2.1 % (0.0-3.0); LYMPHOCYTES % (AUTO) 37.8 % (20.0-45.0); MEAN CORPUSCULAR HEMOGLOBIN 25.3 PG (27.0-31.0); MEAN CORPUSCULAR HGB CONC 29.9 G/DL (32.0-36.0); MEAN CORPUSCULAR VOLUME 85 FL (80-99); MEAN PLATELET VOLUME 6.2 FL (6.5-10.1); MONOCYTES % (AUTO) 7.4 % (1.0-10.0); NEUTROPHILS % (AUTO) 51.2 % (45.0-75.0); PLATELET COUNT 787 K/UL (150-450); RED BLOOD COUNT 4.08 M/UL (4.20-5.40); RED CELL DISTRIBUTION WIDTH 16.2 % (11.6-14.8)
[2016-05-01] MEDS: Levothyroxine 25mcg tab ORAL SCH (06:39)
[2016-05-01] MEDS: Lactobacillus-GG tablet ORAL SCH ×3 (06:39→21:55)
[2016-05-01 06:57] LABS: ANION GAP 14 (5-15); CARBON DIOXIDE 23 mEQ/L (20-30); CHLORIDE 98 mEQ/L (98-107); CREATININE 0.6 mg/dL (0.5-0.9); HEMOLYSIS 0; POTASSIUM 4.4 mEQ/L (3.4-4.9); SODIUM 135 mEQ/L (135-145)
--- NOTE | 2016-05-01 07:42 | General Progress Note ---
Assessment/Plan Problem List: (1) Hyperglycemia ICD Codes: R73.9 - Hyperglycemia SNOMED: 44086194 (2) Altered mental status ICD Codes: R41.82 - Altered mental status SNOMED: 238484211 Qualifiers: Qualified Codes: R41.82 - Altered mental status, unspecified (3) Sepsis ICD Codes: A41.9 - Sepsis SNOMED: 49697358 (4) Altered mental status ICD Codes: R41.82 - Altered mental status, unspecified SNOMED: 081690737 Qualifiers: Qualified Codes: R41.0 - Disorientation, unspecified (5) Stroke ICD Codes: I63.9 - Stroke SNOMED: 418430358 Qualifiers: (6) Hypothyroid ICD Codes: E03.9 - Hypothyroid SNOMED: 37275148 Qualifiers: Qualified Codes: E03.9 - Hypothyroidism, unspecified (7) Decubitus ulcer, stage 4 with infection ICD Codes: L89.94 - Pressure ulcer of unspecified site, stage 4 SNOMED: 7288358, 433418687 Status: stable, progressing Assessment/Plan iv abx per ID wound care flap revision per surgery monitor BS insulin coverage antiplt rx Subjective ROS Limited/Unobtainable: No Constitutional: Reports: malaise, weakness HEENT: Reports: no symptoms Cardiovascular: Reports: no symptoms Respiratory: Reports: no symptoms Gastrointestinal/Abdominal: Reports: no symptoms Genitourinary: Reports: no symptoms Neurologic/Psychiatric: Reports: pre-existing deficit Endocrine: Reports: no symptoms Hematologic/Lymphatic: Reports: no symptoms Allergies: Coded Allergies: HYDROMORPHONE (Verified Allergy, Unknown, 09/21/14) MORPHINE (Unverified Allergy, Unknown, 04/27/16) All Systems: reviewed and negative except above Subjective npo for surgery today. pt w/o complaints. denies any chest pain. denies sob. labs reviewed. Objective Last 24 Hour Vital Signs Date Time Temp Pulse Resp B/P Pulse Ox O2 Delivery O2 Flow Rate FiO2 05/01/16 04:00 98.1 77 18 133/68 96 Room Air 05/01/16 00:00 97.9 73 18 124/57 94 Room Air 04/30/16 20:06 79 114/47 04/30/16 20:00 98.1 79 18 114/47 96 Room Air 04/30/16 16:00 97.2 72 18 110/58 96 Room Air 04/30/16 12:00 97.9 66 18 119/62 96 Room Air 04/30/16 09:19 70 133/63 04/30/16 09:18 133/63 04/30/16 09:17 70 133/63 04/30/16 08:00 97.9 70 18 133/63 98 Room Air Intake and Output 04/30/16 05/01/16 19:00 07:00 Intake Total 650 ml 180 ml Output Total 500 ml 200 ml Balance 150 ml -20 ml Intake Oral 400 ml 180 ml IV Total 250 ml Output Urine Total 500 ml 200 ml Laboratory Tests 04/30/16 14:48: Vancomycin Level Trough 14.7H 05/01/16 04:45: White Blood Count 12.0H, Red Blood Count 4.08L, Hemoglobin 10.3L, Hematocrit 34.6L, Mean Corpuscular Volume 85, Mean Corpuscular Hemoglobin 25.3L, Mean Corpuscular Hemoglobin Concent 29.9L, Red Cell Distribution Width 16.2H, Platelet Count 787H, Mean Platelet Volume 6.2L, Neutrophils (%) (Auto) 51.2, Lymphocytes (%) (Auto) 37.8, Monocytes (%) (Auto) 7.4, Eosinophils (%) (Auto) 2.1, Basophils (%) (Auto) 1.6, Sodium Level 135, Potassium Level 4.4, Chloride Level 98, Carbon Dioxide Level 23, Anion Gap 14, Blood Urea Nitrogen 15, Creatinine 0.6, Estimat Glomerular Filtration Rate , Glucose Level 76, Calcium Level 9.0 Height (Feet): 5 Height (Inches): 6.00 Weight (Pounds): 150 Objective General Appearance: WD/WN, alert Neck: supple Cardiovascular: regular rhythm Respiratory/Chest: chest wall non-tender, lungs clear, normal breath sounds, no respiratory distress, no accessory muscle use Abdomen: normal bowel sounds, non tender, soft, no organomegaly, no mass Edema: no edema noted Arm (L), no edema noted Arm (R), no edema noted Leg (L), no edema noted Leg (R), no edema noted Pedal (L), no edema noted Pedal (R), no edema noted Generalized Objective stg4 sacral wound flap with dehiscence ISIDORO BYRNE May 01, 2016 07:42
[2016-05-01] MEDS: Heparin 5000 units/ml inj SUBQ SCH ×2 (09:00→20:09)
[2016-05-01] MEDS: Aggrenox Cap ORAL SCH ×2 (09:00→20:08)
[2016-05-01] MEDS: metFORMIN 500mg tab ORAL SCH ×2 (09:00→20:08)
[2016-05-01] MEDS: Dakin's 0.125% Soln (Quarter Strength) 16oz TOPIC SCH ×2 (09:00→21:00)
[2016-05-01] MEDS: Memantine 10mg tab ORAL SCH (09:00)
[2016-05-01] MEDS: Lisinopril 20mg tab ORAL SCH (09:00)
--- NOTE | 2016-05-01 11:27 | Infectious Diseases Prog Note ---
Assessment/Plan Assessment/Plan antibiotics : vancomycin iv, cefepime A 1. decubitus ulcer infection of sacrum 2. 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 CVA 5. DM 6. HTN P 1. continue vancomycin iv, cefepime 2. will follow up cultures 3. surgery planned today Subjective Constitutional: Denies: chills, fever Respiratory: Denies: dry cough, shortness of breath Gastrointestinal/Abdominal: Denies: diarrhea, nausea, vomiting Musculoskeletal: Denies: pain Allergies: Coded Allergies: HYDROMORPHONE (Verified Allergy, Unknown, 09/21/14) MORPHINE (Unverified Allergy, Unknown, 04/27/16) Objective Vital Signs Last 24 Hour Vital Signs Date Time Temp Pulse Resp B/P Pulse Ox O2 Delivery O2 Flow Rate FiO2 05/01/16 09:00 77 133/68 05/01/16 04:00 98.1 77 18 133/68 96 Room Air 05/01/16 00:00 97.9 73 18 124/57 94 Room Air 04/30/16 20:06 79 114/47 04/30/16 20:00 98.1 79 18 114/47 96 Room Air 04/30/16 16:00 97.2 72 18 110/58 96 Room Air 04/30/16 12:00 97.9 66 18 119/62 96 Room Air Height (Feet): 5 Height (Inches): 6.00 Weight (Pounds): 150 Respiratory/Chest: lungs clear Cardiovascular: normal rate, regular rhythm, no gallop/murmur Abdomen: soft, non tender Extremities: no edema Microbiology Date/Time Source Procedure Growth Status 04/28/16 12:00 Wound Gram Stain - Final Resulted 04/28/16 12:00 Wound Culture - Preliminary Gram Negative Bacillus 1 Gram Negative Bacillus 2 Staphylococcus Species Resulted Laboratory Tests Test 04/30/16 14:48 05/01/16 04:45 Vancomycin Level Trough 14.7 ug/mL (5.0-12.0) H White Blood Count 12.0 K/UL (4.8-10.8) H Red Blood Count 4.08 M/UL (4.20-5.40) L Hemoglobin 10.3 G/DL (12.0-16.0) L Hematocrit 34.6 % (37.0-47.0) L Mean Corpuscular Volume 85 FL (80-99) Mean Corpuscular Hemoglobin 25.3 PG (27.0-31.0) L Mean Corpuscular Hemoglobin Concent 29.9 G/DL (32.0-36.0) L Red Cell Distribution Width 16.2 % (11.6-14.8) H Platelet Count 787 K/UL (150-450) H Mean Platelet Volume 6.2 FL (6.5-10.1) L Neutrophils (%) (Auto) 51.2 % (45.0-75.0) Lymphocytes (%) (Auto) 37.8 % (20.0-45.0) Monocytes (%) (Auto) 7.4 % (1.0-10.0) Eosinophils (%) (Auto) 2.1 % (0.0-3.0) Basophils (%) (Auto) 1.6 % (0.0-2.0) Sodium Level 135 mEQ/L (135-145) Potassium Level 4.4 mEQ/L (3.4-4.9) Chloride Level 98 mEQ/L (98-107) Carbon Dioxide Level 23 mEQ/L (20-30) Anion Gap 14 (5-15) Blood Urea Nitrogen 15 mg/dL (7-23) Creatinine 0.6 mg/dL (0.5-0.9) Estimat Glomerular Filtration Rate mL/min (>60) Glucose Level 76 mg/dL (74-106) Calcium Level 9.0 mg/dL (8.6-10.2) ALESSIO KRISHNAMURTHY May 01, 2016 11:27
[2016-05-01] MEDS ORDERED: NS Irrig 1000ml IRRIG ONE (11:45)
--- NOTE | 2016-05-01 11:53 | Diagnostic Imaging Report ---
Indication: Cough Comparison: 1216 A single view chest radiograph was obtained. Findings: Bones are osteopenic. Lungs are clear. Heart size is normal. Impression: No acute disease
--- NOTE | 2016-05-01 12:00 | Pre-Procedure Note/Attestation ---
Pre-Procedure Note/Attestation Complete Prior to Procedure Planned Procedure: not applicable Procedure Narrative: closure of sacral wound Indications for Procedure Pre-Operative Diagnosis: open wound adjacent to previous flap Attestation I attest that I discussed the nature of the procedure; its benefits; risks and complications; and alternatives (and the risks and benefits of such alternatives ), prior to the procedure, with the patient (or the patient's legal hardware supplies sales representative). I attest that, if there was a reasonable possibility of needing a blood transfusion, the patient (or the patient's legal hardware supplies sales representative) was given the [facility] standardized written summary, pursuant to the Magdi Karel Blood Safety Act ([place] Health and Safety Code # 1645, as amended). I attest that I re-evaluated the patient just prior to the surgery and that there has been no change in the patient's H&P, except as documented below: None SABRINA LOZA May 01, 2016 12:00
[2016-05-01] MEDS ORDERED: Bacitracin Oint 15gm Tube TOPIC ONE (12:33)
--- NOTE | 2016-05-01 13:12 | Brief Operative Note ---
Immediate Post Operative Note Operative Note Pre-op Diagnosis: open wound adjacent to previous flap Post-op Diagnosis: same as pre-op Anesthesia: general Specimen: none Complications: none Condition: stable Estimated Blood Loss: minimal Drains: none Implant(s) used?: No SABRINA LOZA May 01, 2016 13:12
[2016-05-01] MEDS ORDERED: LR 1000ml 1,000 ML IVLG SCH (13:18)
--- NOTE | 2016-05-01 13:18 | Immediate Post-Op Evaluation ---
Immediate Post-Op Evalulation Immediate Post-Op Evalulation Procedure: Closure of sacral decubitus Date of Evaluation: May 01, 2016 Time of Evaluation: 13:22 IV Fluids: 350 Blood Pressure Systolic: 104 Blood Pressure Diastolic: 59 Pulse Rate: 99 Respiratory Rate: 18 O2 Sat by Pulse Oximetry: 100 Temperature (Fahrenheit): 98.2 Pain Score (1-10): 0 Nausea: No Vomiting: No Complications No complication Patient Status: reacts, patent, none Hydration Status: adequate Drug: None SARA ARITA M.D. May 01, 2016 13:18
[2016-05-01] MEDS ORDERED: Hydromorphone 0.5mg/0.5ml inj IVP PRN (13:30)
[2016-05-01] MEDS ORDERED: LORazepam Inj 2mg/ml 1ml IV PRN (13:30)
[2016-05-01] MEDS: traMADol 50mg tab ORAL PRN (16:53)
--- NOTE | 2016-05-01 18:38 | Progress Note ---
DATE: 04/30/2016 CARDIOLOGY PROGRESS NOTE SUBJECTIVE: The patient has no chest pain or shortness of breath. Glucose is somewhat elevated. Blood pressure was stable. OBJECTIVE: VITAL SIGNS: Blood pressure is 110/58, pulse 72, respirations 18, and afebrile. SKIN: Pictured. NECK: Supple. LUNGS: Clear. CARDIAC: Regular. Normal S1 and S2 with a fourth heart sound. ABDOMEN: Soft. No edema. IMPRESSION: 1. Flap decubitus with flap dehiscence. 2. Hypertensive heart disease. 3. Hypothyroidism secondary to noncompliance. 4. Type 2 diabetes mellitus. PLAN: 1. The patient is stable for flap revision. In the interim, we will increase thyroid replacement. Continue insulin titration, per sliding scale. 2. Maintain current cardiovascular regimen. 3. Avoid tighter blood pressure control and postoperative setting. Darius Duran M.D. DR: Kwadwo JOB#: [id number] CC:
[2016-05-01] MEDS: Atorvastatin 20mg tab ORAL SCH (20:10)
[2016-05-02] VITALS: BP 111/59
[2016-05-02 04:00] VITALS: BP 126/60
--- NOTE | 2016-05-02 04:17 | Progress Note ---
DATE: 05/01/2016 CARDIOLOGY PROGRESS NOTE SUBJECTIVE: The patient is postoperative day #0 from flap revision. She has had pain and her medication regimen has been advanced. No perioperative hemodynamic sequela were noted. OBJECTIVE: VITAL SIGNS: Blood pressure 119/60, pulse 80, respirations 22, and afebrile. HEENT: Wound is dressed. Oropharynx is clear. NECK: Supple. LUNGS: Clear. CARDIAC: Regular. Normal S1 and S2 with a fourth heart sound. EXTREMITIES: With no edema. LABORATORY DATA: White count 12 and hemoglobin 10. Sodium 135, potassium 4.4, bicarbonate 23, BUN 15, and creatinine 0.6. IMPRESSION: 1. Relatively low range blood pressure postoperatively may be due to pain medications. 2. Hold parameters will be placed on antihypertensive. 3. Hypothyroidism on replacement therapy. 4. Decubitus with skin flap for dehiscence status post revision. 5. Non-insulin requiring diabetes mellitus on oral therapy. PLAN: 1. DVT prophylaxis in place. 2. Pain control titration. 3. Aspiration precaution. Darius Duran M.D. DR: FREDERICK JOB#: [id number] CC:
--- NOTE | 2016-05-02 04:58 | Operative Note - Dictated ---
DATE OF OPERATION: 05/01/2016 OPERATING SURGEON: Herbert George M.D. ANESTHESIOLOGIST: Magdi Robert M.D. PREOPERATIVE DIAGNOSIS: open wound adjacent to previous sacral flap. POSTOPERATIVE DIAGNOSIS: open wound adjacent to previous sacral flap. PROCEDURE: Secondary closure of sacral wound with local gluteal advancement. INDICATIONS: The patient is an elderly bedridden lady with a chronic nonhealing sacral wound that was debrided and closed with a gluteal myocutaneous flap in February. She had some infection at the site and separation of the medial suture line with development of a recurrent wound. This was treated with antibiotics and Dakin's solution packing and is now clean enough to proceed with closure technique. DESCRIPTION OF PROCEDURE: The patient was taken to surgery, given general anesthesia with an LMA. She was placed in the right lateral decubitus position with the left side elevated. The posterior trunk and the wound itself was prepared with Betadine. The wound measured 8 x 5 x 6 cm. The lateral margin of the defect was undermined including the gluteal muscle, which was elevated. This permitted closure of the wound without tension. The repair was then done with multiple interrupted sutures in two layers using 2-0 Vicryl. Skin closure was then done with continuous vertical mattress suture of 2-0 nylon and 3-0 nylon. Antibiotic ointment was then placed followed by a bulky pressure dressing over the flap. No drain was employed. Blood loss was minimal. Counts were correct. The patient tolerated the surgery well under general anesthesia and went to the recovery room in stable condition. Herbert George M.D. DR: CHENCHO JOB#: [id number] CC:
[2016-05-02] MEDS: Lactobacillus-GG tablet ORAL SCH ×3 (05:11→21:48)
--- NOTE | 2016-05-02 05:36 | General Progress Note ---
Assessment/Plan Problem List: (1) Hyperglycemia ICD Codes: R73.9 - Hyperglycemia SNOMED: 77144035 (2) Altered mental status ICD Codes: R41.82 - Altered mental status SNOMED: 993368567 Qualifiers: Qualified Codes: R41.82 - Altered mental status, unspecified (3) Sepsis ICD Codes: A41.9 - Sepsis SNOMED: 77220028 (4) Altered mental status ICD Codes: R41.82 - Altered mental status, unspecified SNOMED: 621024452 Qualifiers: Qualified Codes: R41.0 - Disorientation, unspecified (5) Stroke ICD Codes: I63.9 - Stroke SNOMED: 700847621 Qualifiers: (6) Hypothyroid ICD Codes: E03.9 - Hypothyroid SNOMED: 89486612 Qualifiers: Qualified Codes: E03.9 - Hypothyroidism, unspecified (7) Decubitus ulcer, stage 4 with infection ICD Codes: L89.94 - Pressure ulcer of unspecified site, stage 4 SNOMED: 8972224, 950898916 Status: stable, progressing Assessment/Plan wound care/dressing changes per surgery abx monitor bs antiplt rx dvt/stress ulcer prophylaxis frequent turning encourage pos. pain rx as needed Subjective ROS Limited/Unobtainable: No Constitutional: Reports: malaise, weakness HEENT: Reports: no symptoms Cardiovascular: Reports: no symptoms Respiratory: Reports: no symptoms Gastrointestinal/Abdominal: Reports: no symptoms Genitourinary: Reports: no symptoms Neurologic/Psychiatric: Reports: pre-existing deficit Endocrine: Reports: no symptoms Hematologic/Lymphatic: Reports: no symptoms Allergies: Coded Allergies: HYDROMORPHONE (Verified Allergy, Unknown, 09/21/14) MORPHINE (Unverified Allergy, Unknown, 04/27/16) All Systems: reviewed and negative except above Subjective s/p uncomplicated flap revision. denies pain. denies sob. no overnight events per night nurse Objective Last 24 Hour Vital Signs Date Time Temp Pulse Resp B/P Pulse Ox O2 Delivery O2 Flow Rate FiO2 05/02/16 04:00 97.7 73 18 126/60 95 Nasal Cannula 2.0 05/02/16 00:00 97.5 75 19 111/59 99 Nasal Cannula 2.0 05/01/16 20:09 80 119/60 05/01/16 20:00 98.1 80 22 119/60 100 Room Air 05/01/16 16:00 97.9 84 19 103/53 99 Nasal Cannula 2.0 05/01/16 14:05 98.4 95 21 111/55 100 Nasal Cannula 3.0 05/01/16 13:50 97 25 111/61 100 Nasal Cannula 3.0 05/01/16 13:35 98 16 118/65 100 Nasal Cannula 3.0 05/01/16 13:22 97 17 102/60 100 Simple Mask 6.0 05/01/16 13:18 99 18 100 05/01/16 13:17 98 19 104/59 100 Simple Mask 6.0 05/01/16 13:12 98.2 98 16 105/63 100 Simple Mask 6.0 05/01/16 09:00 77 133/68 05/01/16 08:00 98.4 79 19 129/72 95 Room Air Intake and Output 05/01/16 05/02/16 19:00 07:00 Intake Total 350 ml 350 ml Output Total 115 ml 200 ml Balance 235 ml 150 ml Intake Oral 350 ml IV Total 350 ml Output Urine Total 100 ml 200 ml Estimated Blood Loss 15 ml # Voids 1 Height (Feet): 5 Height (Inches): 6.00 Weight (Pounds): 150 Objective General Appearance: WD/WN, alert Neck: supple Cardiovascular: regular rhythm Respiratory/Chest: chest wall non-tender, lungs clear, normal breath sounds, no respiratory distress, no accessory muscle use Abdomen: normal bowel sounds, non tender, soft, no organomegaly, no mass Edema: no edema noted Arm (L), no edema noted Arm (R), no edema noted Leg (L), no edema noted Leg (R), no edema noted Pedal (L), no edema noted Pedal (R), no edema noted Generalized Objective bandage over sacrum ISIDORO BYRNE May 02, 2016 05:36
[2016-05-02] MEDS: Levothyroxine 25mcg tab ORAL SCH (05:46)
[2016-05-02] MEDS: NovoLOG Insulin Flexpen SUBQ SCH ×4 (06:27→20:25)
[2016-05-02 07:41] LABS: BASOPHILS % (AUTO) 1.4 % (0.0-2.0); EOSINOPHILS % (AUTO) 2.5 % (0.0-3.0); LYMPHOCYTES % (AUTO) 35.3 % (20.0-45.0); MEAN CORPUSCULAR HEMOGLOBIN 26.5 PG (27.0-31.0); MEAN CORPUSCULAR HGB CONC 31.4 G/DL (32.0-36.0); MEAN CORPUSCULAR VOLUME 84 FL (80-99); MEAN PLATELET VOLUME 6.2 FL (6.5-10.1); NEUTROPHILS % (AUTO) 51.9 % (45.0-75.0); PLATELET COUNT 764 K/UL (150-450); RED BLOOD COUNT 3.68 M/UL (4.20-5.40); RED CELL DISTRIBUTION WIDTH 16.1 % (11.6-14.8); WHITE BLOOD COUNT 12.5 K/UL (4.8-10.8)
[2016-05-02 08:06] LABS: ALANINE AMINOTRANSFERASE 5 U/L (3-33); ALBUMIN/GLOBULIN RATIO 0.7 (1.0-2.7); ANION GAP 14 (5-15); ASPARTATE AMINO TRANSFERASE 11 U/L (5-40); CALCIUM 9.2 mg/dL (8.6-10.2); CARBON DIOXIDE 24 mEQ/L (20-30); CHLORIDE 98 mEQ/L (98-107); CREATININE 0.7 mg/dL (0.5-0.9); HEMOLYSIS 0; MAGNESIUM 1.4 mg/dL (1.7-2.5); POTASSIUM 4.4 mEQ/L (3.4-4.9); SODIUM 136 mEQ/L (135-145); TOTAL PROTEIN 6.6 g/dL (6.6-8.7)
[2016-05-02 08:39] VITALS: BP 138/67
[2016-05-02] MEDS: Dakin's 0.125% Soln (Quarter Strength) 16oz TOPIC SCH ×2 (09:00→20:27)
--- NOTE | 2016-05-02 10:24 | Infectious Diseases Prog Note ---
"Assessment/Plan Assessment/Plan antibiotics : vancomycin iv, cefepime A 1. 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 CVA 5. DM 6. HTN P 1. continue vancomycin iv 2. d/c cefepime 3. start ertpaenem 4. will follow up cultures Subjective Constitutional: Denies: chills, fever Respiratory: Denies: dry cough, shortness of breath Gastrointestinal/Abdominal: Denies: diarrhea, nausea, vomiting Musculoskeletal: Denies: pain Allergies: Coded Allergies: HYDROMORPHONE (Verified Allergy, Unknown, 09/21/14) MORPHINE (Unverified Allergy, Unknown, 04/27/16) Objective Vital Signs Last 24 Hour Vital Signs Date Time Temp Pulse Resp B/P Pulse Ox O2 Delivery O2 Flow Rate FiO2 05/02/16 08:39 98.2 72 20 138/67 100 Nasal Cannula 2.0 05/02/16 04:00 97.7 73 18 126/60 95 Nasal Cannula 2.0 05/02/16 00:00 97.5 75 19 111/59 99 Nasal Cannula 2.0 05/01/16 20:09 80 119/60 05/01/16 20:00 98.1 80 22 119/60 100 Room Air 05/01/16 16:00 97.9 84 19 103/53 99 Nasal Cannula 2.0 05/01/16 14:05 98.4 95 21 111/55 100 Nasal Cannula 3.0 05/01/16 13:50 97 25 111/61 100 Nasal Cannula 3.0 05/01/16 13:35 98 16 118/65 100 Nasal Cannula 3.0 05/01/16 13:22 97 17 102/60 100 Simple Mask 6.0 05/01/16 13:18 99 18 100 05/01/16 13:17 98 19 104/59 100 Simple Mask 6.0 05/01/16 13:12 98.2 98 16 105/63 100 Simple Mask 6.0 Height (Feet): 5 Height (Inches): 6.00 Weight (Pounds): 150 Respiratory/Chest: lungs clear Cardiovascular: normal rate, regular rhythm, no gallop/murmur Abdomen: soft, non tender Extremities: no edema Laboratory Tests Test 05/02/16 05:30 White Blood Count 12.5 K/UL (4.8-10.8) H Red Blood Count 3.68 M/UL (4.20-5.40) L Hemoglobin 9.8 G/DL (12.0-16.0) L Hematocrit 31.1 % (37.0-47.0) L Mean Corpuscular Volume 84 FL (80-99) Mean Corpuscular Hemoglobin 26.5 PG (27.0-31.0) L Mean Corpuscular Hemoglobin Concent 31.4 G/DL (32.0-36.0) L Red Cell Distribution Width 16.1 % (11.6-14.8) H Platelet Count 764 K/UL (150-450) H Mean Platelet Volume 6.2 FL (6.5-10.1) L Neutrophils (%) (Auto) 51.9 % (45.0-75.0) Lymphocytes (%) (Auto) 35.3 % (20.0-45.0) Monocytes (%) (Auto) 9.0 % (1.0-10.0) Eosinophils (%) (Auto) 2.5 % (0.0-3.0) Basophils (%) (Auto) 1.4 % (0.0-2.0) Sodium Level 136 mEQ/L (135-145) Potassium Level 4.4 mEQ/L (3.4-4.9) Chloride Level 98 mEQ/L (98-107) Carbon Dioxide Level 24 mEQ/L (20-30) Anion Gap 14 (5-15) Blood Urea Nitrogen 15 mg/dL (7-23) Creatinine 0.7 mg/dL (0.5-0.9) Estimat Glomerular Filtration Rate mL/min (>60) Glucose Level 83 mg/dL (74-106) Calcium Level 9.2 mg/dL (8.6-10.2) Magnesium Level 1.4 mg/dL (1.7-2.5) L Total Bilirubin 0.4 mg/dL (0.0-1.2) Aspartate Amino Transf (AST/SGOT) 11 U/L (5-40) Alanine Aminotransferase (ALT/SGPT) 5 U/L (3-33) Alkaline Phosphatase 57 U/L (35-104) Total Protein 6.6 g/dL (6.6-8.7) Albumin 2.9 g/dL (3.5-5.2) L Globulin 3.7 g/dL Albumin/Globulin Ratio 0.7 (1.0-2.7) L ALESSIO KRISHNAMURTHY May 02, 2016 10:24"
[2016-05-02] MEDS: Memantine 10mg tab ORAL SCH (10:43)
[2016-05-02] MEDS: metFORMIN 500mg tab ORAL SCH ×2 (10:43→17:20)
[2016-05-02] MEDS: Aggrenox Cap ORAL SCH ×2 (10:43→20:17)
[2016-05-02] MEDS: Lisinopril 20mg tab ORAL SCH (10:46)
[2016-05-02] MEDS: Heparin 5000 units/ml inj SUBQ SCH ×2 (10:48→20:20)
--- NOTE | 2016-05-02 12:01 | 48 Hour Post Anesthesia Eval ---
Post Anesthesia Evaluation Procedure: Closure of sacral decubitus Date of Evaluation: May 02, 2016 Time of Evaluation: 14:40 Blood Pressure Systolic: 131 0: 57 Pulse Rate: 72 Respiratory Rate: 20 Temperature (Fahrenheit): 98.2 O2 Sat by Pulse Oximetry: 100 Airway: patent Nausea: No Vomiting: No Pain Intensity: 2 Hydration Status: adequate Cardiopulmonary Status: Stable Mental Status/LOC: patient returned to baseline Follow-up Care/Observations: As per surgery Post-Anesthesia Complications: No anesthetic complication Follow-up care needed: N/A SARA ARITA M.D. May 02, 2016 12:01
[2016-05-02 12:09] VITALS: BP 130/65
[2016-05-02 16:00] VITALS: BP 126/61
--- NOTE | 2016-05-02 17:46 | Cardiology Report ---
APPROVED REPORT EKG Measurement Heart [id number] Sinus rhythm with premature atrial complexes Cannot rule out Anterior infarct, age undetermined Abnormal ECG
[2016-05-02] MEDS: Neosporin Oint 15gm TOPIC SCH (19:00)
[2016-05-02 20:00] VITALS: BP 133/65
[2016-05-02] MEDS: Atorvastatin 20mg tab ORAL SCH (20:18)
--- NOTE | 2016-05-02 22:18 | Progress Note ---
DATE: 05/02/2016 SURGICAL PROGRESS NOTE SUBJECTIVE: The patient had a secondary closure of her sacral wound with a local flap done yesterday, it was uncomplicated and went well. No drain was required and the patient continues on antibiotic therapy. I believe that she can be discharged in the next 24 to 48 hours and return to her [facility]CF with the same wound care that is currently ordered, that would be the dressing changes every 12 hours with antibiotic ointment on the suture line. I would like to see her in follow up in my office in three weeks. Herbert George M.D. DR: KHADAR JOB#: [id number] CC:
[2016-05-03] VITALS: BP 136/68
[2016-05-03 04:00] VITALS: BP 141/63
--- NOTE | 2016-05-03 04:07 | Progress Note ---
DATE: 05/02/2016 CARDIOLOGY PROGRESS NOTE: SUBJECTIVE: The patient had a local flap secondary closure procedure of her sacral wound yesterday. She continues on antibiotics. She is remaining on wound care. Pain is controlled with IV Dilaudid. OBJECTIVE: VITAL SIGNS: Blood pressure 133/65, heart rate 69, respiratory rate 18, and afebrile. NECK: Supple. LUNGS: Clear. CARDIAC: Regular. Normal S1, S2 with a fourth heart sound. ABDOMEN: Soft. EXTREMITIES: Trace edema. IMPRESSION: 1. Polymicrobial wound infection. 2. Flap dehiscence. 3. Hypothyroidism. 4. Hypertensive heart disease. 5. Type 2 diabetes mellitus. 6. Cerebrovascular disease. PLAN: 1. Wound care antibiotics. 2. Thyroid replacement. 3. Titrate insulin coverage by sliding scale. 4. Titrate cardiovascular regimen. Darius Duran M.D. DR: César JOB#: [id number] CC:
[2016-05-03] MEDS: Lactobacillus-GG tablet ORAL SCH ×3 (06:06→21:29)
[2016-05-03] MEDS: NovoLOG Insulin Flexpen SUBQ SCH ×4 (06:06→21:31)
[2016-05-03] MEDS: Levothyroxine 25mcg tab ORAL SCH (06:06)
--- NOTE | 2016-05-03 08:11 | General Progress Note ---
Assessment/Plan Problem List: (1) Hyperglycemia ICD Codes: R73.9 - Hyperglycemia SNOMED: 52400922 (2) Altered mental status ICD Codes: R41.82 - Altered mental status SNOMED: 258327813 Qualifiers: Qualified Codes: R41.82 - Altered mental status, unspecified (3) Sepsis ICD Codes: A41.9 - Sepsis SNOMED: 07027366 (4) Altered mental status ICD Codes: R41.82 - Altered mental status, unspecified SNOMED: 915847418 Qualifiers: Qualified Codes: R41.0 - Disorientation, unspecified (5) Stroke ICD Codes: I63.9 - Stroke SNOMED: 501092471 Qualifiers: (6) Hypothyroid ICD Codes: E03.9 - Hypothyroid SNOMED: 18558737 Qualifiers: Qualified Codes: E03.9 - Hypothyroidism, unspecified (7) Decubitus ulcer, stage 4 with infection ICD Codes: L89.94 - Pressure ulcer of unspecified site, stage 4 SNOMED: 9910836, 252512270 Status: stable, progressing Assessment/Plan wound care/dressing changes per surgery abx monitor bs antiplt rx dvt/stress ulcer prophylaxis frequent turning encourage pos. pain rx as needed ?dc planning if ok with all Subjective ROS Limited/Unobtainable: No Constitutional: Reports: malaise, weakness HEENT: Reports: no symptoms Cardiovascular: Reports: no symptoms Respiratory: Reports: no symptoms Gastrointestinal/Abdominal: Reports: no symptoms Genitourinary: Reports: no symptoms Neurologic/Psychiatric: Reports: no symptoms Endocrine: Reports: no symptoms Hematologic/Lymphatic: Reports: no symptoms Allergies: Coded Allergies: HYDROMORPHONE (Verified Allergy, Unknown, 09/21/14) MORPHINE (Unverified Allergy, Unknown, 04/27/16) All Systems: reviewed and negative except above Subjective s/p uncomplicated flap revision. denies pain. denies sob. eating breakfast. surgery noted. remains on 2 iv abx. Objective Last 24 Hour Vital Signs Date Time Temp Pulse Resp B/P Pulse Ox O2 Delivery O2 Flow Rate FiO2 05/03/16 04:00 97.9 64 18 141/63 100 Nasal Cannula 2.0 05/03/16 00:00 97.6 98 18 136/68 100 Room Air 05/02/16 20:18 69 133/65 05/02/16 20:00 97.7 69 14 133/65 100 Nasal Cannula 2.0 05/02/16 16:00 97.2 65 16 126/61 100 Nasal Cannula 2.0 05/02/16 12:09 98.0 69 20 130/65 100 Nasal Cannula 3.0 05/02/16 12:01 72 20 100 05/02/16 10:52 78 131/57 05/02/16 10:47 78 131/57 05/02/16 10:46 131/57 05/02/16 08:39 98.2 72 20 138/67 100 Nasal Cannula 2.0 Intake and Output 05/02/16 05/03/16 19:00 07:00 Intake Total 360 ml 600 ml Output Total 400 ml 1450 ml Balance -40 ml -850 ml Intake Oral 360 ml 600 ml Output Urine Total 400 ml 1450 ml # Bowel Movements 1 1 Height (Feet): 5 Height (Inches): 6.00 Weight (Pounds): 150 Objective General Appearance: WD/WN, alert Neck: supple Cardiovascular: regular rhythm Respiratory/Chest: chest wall non-tender, lungs clear, normal breath sounds, no respiratory distress, no accessory muscle use Abdomen: normal bowel sounds, non tender, soft, no organomegaly, no mass Edema: no edema noted Arm (L), no edema noted Arm (R), no edema noted Leg (L), no edema noted Leg (R), no edema noted Pedal (L), no edema noted Pedal (R), no edema noted Generalized Objective bandage over sacrum ISIDORO BYRNE May 03, 2016 08:11
[2016-05-03 08:39] VITALS: BP 142/61
[2016-05-03] MEDS: Dakin's 0.125% Soln (Quarter Strength) 16oz TOPIC SCH ×2 (09:00→21:28)
[2016-05-03] MEDS: metFORMIN 500mg tab ORAL SCH ×2 (09:43→17:45)
[2016-05-03] MEDS: Aggrenox Cap ORAL SCH ×2 (09:43→21:29)
[2016-05-03] MEDS: Memantine 10mg tab ORAL SCH (09:44)
[2016-05-03] MEDS: Lisinopril 20mg tab ORAL SCH (09:45)
[2016-05-03] MEDS: Neosporin Oint 15gm TOPIC SCH ×2 (11:17→17:45)
[2016-05-03] MEDS: Heparin 5000 units/ml inj SUBQ SCH ×2 (11:18→21:30)
[2016-05-03 12:01] VITALS: BP 138/65
--- NOTE | 2016-05-03 12:17 | Wound Nurse Progress Note ---
Wound RN Progress Note Wound Consult Upon assessment noted wound site s/p flap intact, viable blanchable tissue present. no foul odor, no s/s of infection, sutures remain intact, noted serosanguineous moderate drainage present. Treatment provide as ordered. tolerated well, no c/o pain to site at this time, dressing remains dry and intact at this time ,repositioned to offload s/p flap site. Bed placed at lowest position, alarm intact. SAMMIE BARLOW May 03, 2016 12:17
--- NOTE | 2016-05-03 14:37 | Infectious Diseases Prog Note ---
Assessment/Plan Assessment/Plan A; infected sacral ulcer Wound dehiscence DM HPN MRSA & VRE colonization P: continue Ertapenem & Vancomycin wound care Subjective ROS Limited/Unobtainable: Yes Allergies: Coded Allergies: HYDROMORPHONE (Verified Allergy, Unknown, 09/21/14) MORPHINE (Unverified Allergy, Unknown, 04/27/16) Objective Vital Signs Last 24 Hour Vital Signs Date Time Temp Pulse Resp B/P Pulse Ox O2 Delivery O2 Flow Rate FiO2 05/03/16 12:01 98.0 65 20 138/65 100 Nasal Cannula 2.0 05/03/16 09:46 75 132/63 05/03/16 09:45 132/63 05/03/16 09:45 75 132/63 05/03/16 08:39 97.8 60 20 142/61 100 Nasal Cannula 2.0 05/03/16 04:00 97.9 64 18 141/63 100 Nasal Cannula 2.0 05/03/16 00:00 97.6 98 18 136/68 100 Room Air 05/02/16 20:18 69 133/65 05/02/16 20:00 97.7 69 14 133/65 100 Nasal Cannula 2.0 05/02/16 16:00 97.2 65 16 126/61 100 Nasal Cannula 2.0 Height (Feet): 5 Height (Inches): 6.00 Weight (Pounds): 150 General Appearance: no acute distress HEENT: mucous membranes moist Respiratory/Chest: lungs clear Cardiovascular: normal peripheral pulses Abdomen: soft, non tender Extremities: no edema Skin: ulcers Neurologic/Psychiatric: alert, responsive Current Medications Medications (Trade) Dose Ordered Sig/Rupert Route PRN Reason Start Time Stop Time Status Last Admin Dose Admin Acetaminophen (Tylenol) 650 mg Q6H PRN ORAL Mild Pain/Temp > 100.5 04/27/16 19:30 05/27/16 19:29 Amlodipine Besylate (Norvasc) 5 mg Q12HR ORAL 04/27/16 21:00 05/27/16 20:59 05/03/16 09:45 Atorvastatin Calcium (Lipitor) 20 mg BEDTIME ORAL 04/27/16 21:00 05/27/16 20:59 05/02/16 20:18 Dextrose (Dextrose 50%) STAT PRN IV Hypoglycemia 04/27/16 20:00 05/27/16 19:59 Dipyridamole/ Aspirin (Aggrenox) 1 cap Q12HR ORAL 04/27/16 21:00 05/27/16 20:59 05/03/16 09:43 Ertapenem/Sodium Chloride (INVanz/Sodium Chloride 100ml bag) 100 ml @ 200 mls/hr Q24H IVPB 05/02/16 11:45 05/07/16 11:44 05/02/16 14:26 Ferrous Sulfate (Feosol) 325 mg THREE TIMES A DAY ORAL 04/28/16 09:00 05/28/16 08:59 05/03/16 14:22 Heparin Sodium (Porcine) (Heparin 5000 units/ml) 5,000 units EVERY 12 HOURS SUBQ 04/27/16 21:00 05/27/16 20:59 05/03/16 11:18 Insulin Aspart (NovoLOG) BEFORE MEALS AND HS SUBQ 04/27/16 21:00 05/27/16 20:59 05/03/16 12:44 Lactobacillus Acidophilus (Culturelle) 1 tab Q8HR ORAL 04/27/16 22:00 05/27/16 21:59 05/03/16 14:22 Levothyroxine Sodium (Synthroid) 150 mcg DAILY@0630 ORAL 05/01/16 06:30 05/31/16 06:29 05/03/16 06:06 Levothyroxine Sodium 25 mcg 25 mcg DAILY@0630 ORAL 05/01/16 06:30 05/31/16 06:29 05/03/16 06:06 Lisinopril 40 mg 40 mg DAILY ORAL 05/02/16 09:00 06/01/16 08:59 05/03/16 09:45 Memantine (Namenda) 10 mg DAILY ORAL 04/28/16 09:00 05/28/16 08:59 05/03/16 09:44 Metformin HCl (Glucophage) 1,000 mg BID ORAL 04/28/16 09:00 05/28/16 08:59 05/03/16 09:43 Metoprolol Succinate (Toprol XL) 25 mg DAILY ORAL 04/28/16 09:00 05/28/16 08:59 05/03/16 09:46 Neomycin/ Polymyxin/ Bacitracin (Neosporin Oint 15gm) 1 applic TWICE A DAY TOPIC 05/02/16 18:00 06/01/16 17:59 05/03/16 11:17 Sodium Hypochlorite (Dakin's Quarter Strength) 1 applic EVERY 12 HOURS TOPIC 04/28/16 21:00 05/28/16 20:59 04/30/16 21:52 Tramadol HCl (Ultram) 50 mg TID PRN ORAL SEVERE PAIN 04/27/16 20:00 05/04/16 19:59 05/01/16 16:53 Vancomycin HCl (Vanco rx to dose) 1 ea DAILY PRN MISC Per rx protocol 04/27/16 23:30 05/27/16 23:29 Vancomycin HCl/ Dextrose (Vancomycin/D5W 250ml) 250 ml @ 167 mls/hr Q24H IVPB 05/01/16 15:00 05/06/16 14:59 05/02/16 16:18 EFRAIN GARCIA May 03, 2016 14:37
[2016-05-03 16:36] VITALS: BP 140/62
[2016-05-03] MEDS ORDERED: NS 275ml ONE (18:34)
[2016-05-03] MEDS ORDERED: Tubing IV Secondary IV ONE (18:34)
[2016-05-03 20:00] VITALS: BP 121/51
[2016-05-03] MEDS: Atorvastatin 20mg tab ORAL SCH (21:29)
[2016-05-04] VITALS (7 sets, daily range): BP systolic 116–142; BP diastolic 52–85
--- NOTE | 2016-05-04 03:57 | Progress Note ---
DATE: 05/03/2016 CARDIOLOGY PROGRESS NOTE SUBJECTIVE: The patient is postop revision of sacral flap. Pain is better controlled. Oral intake is fair. OBJECTIVE: VITAL SIGNS: Blood pressure 140/62, pulse 62, and respirations 20. LUNGS: Bilateral breath sounds. HEART: Regular rhythm and rate. Normal S1 and S2. ABDOMEN: Soft. No edema. LABORATORY DATA: Labs pending. IMPRESSION: 1. Status post flap revision. 2. Hypertensive heart disease. 3. Diastolic dysfunction with no signs of acute congestive heart failure. 4. Hypomagnesemia. 5. Type 2 diabetes mellitus. 6. Moderate to severe protein-calorie malnutrition. PLAN: 1. Encourage oral intake. 2. IV magnesium. 3. Continue angiotensin-converting enzyme inhibitor. 4. Insulin coverage by sliding scale. Darius Duran M.D. DR: COREY JOB#: [id number] CC:
[2016-05-04] MEDS: NovoLOG Insulin Flexpen SUBQ SCH ×4 (06:30→20:51)
[2016-05-04] MEDS: Levothyroxine 25mcg tab ORAL SCH (06:32)
[2016-05-04] MEDS: Lactobacillus-GG tablet ORAL SCH ×3 (06:33→20:49)
[2016-05-04 07:47] LABS: MEAN CORPUSCULAR HGB CONC 31.9 G/DL (32.0-36.0); MEAN CORPUSCULAR VOLUME 81 FL (80-99); MEAN PLATELET VOLUME 6.3 FL (6.5-10.1); PLATELET COUNT 828 K/UL (150-450); RED BLOOD COUNT 3.71 M/UL (4.20-5.40); RED CELL DISTRIBUTION WIDTH 16.9 % (11.6-14.8)
[2016-05-04 08:14] LABS: ALANINE AMINOTRANSFERASE 5 U/L (3-33); ALBUMIN/GLOBULIN RATIO 0.7 (1.0-2.7); ANION GAP 17 (5-15); ASPARTATE AMINO TRANSFERASE 12 U/L (5-40); CARBON DIOXIDE 21 mEQ/L (20-30); CHLORIDE 96 mEQ/L (98-107); CREATININE 0.6 mg/dL (0.5-0.9); HEMOLYSIS 4; POTASSIUM 4.6 mEQ/L (3.4-4.9); SODIUM 134 mEQ/L (135-145); TOTAL PROTEIN 6.3 g/dL (6.6-8.7)
[2016-05-04] MEDS ORDERED: INVANZ1 GM IM (08:25)
[2016-05-04] MEDS ORDERED: VANCOMYCIN1 GM/250 M IVPB (08:25)
[2016-05-04] MEDS: Dakin's 0.125% Soln (Quarter Strength) 16oz TOPIC SCH ×2 (09:00→20:52)
[2016-05-04] MEDS: Aggrenox Cap ORAL SCH ×2 (09:20→20:49)
[2016-05-04] MEDS: metFORMIN 500mg tab ORAL SCH ×2 (09:21→17:22)
[2016-05-04] MEDS: Memantine 10mg tab ORAL SCH (09:21)
[2016-05-04] MEDS: Lisinopril 20mg tab ORAL SCH (09:23)
[2016-05-04] MEDS: Heparin 5000 units/ml inj SUBQ SCH ×2 (09:25→20:52)
[2016-05-04 09:31] LABS: BAND NEUTROPHILS % (MANUAL) 1 % (0-8); BASOPHILS % (MANUAL) 0 % (0-2); EOSINOPHILS % (MANUAL) 6 % (0-3); LYMPHOCYTES % (MANUAL) 18 % (20-45); NEUTROPHILS % (MANUAL) 69 % (45-75); PLATELET ESTIMATE INCREASED; PLATELET MORPHOLOGY NORMAL; TOTAL CELLS COUNTED 100
[2016-05-04 09:32] LABS: ANISOCYTOSIS 1+
--- NOTE | 2016-05-04 10:25 | Infectious Diseases Prog Note ---
Assessment/Plan Assessment/Plan A; infected sacral ulcer Wound dehiscence DM HPN MRSA & VRE colonization P: continue Ertapenem & Vancomycin wound care Follow up CXR UA, UC Subjective ROS Limited/Unobtainable: Yes Respiratory: Reports: productive cough Allergies: Coded Allergies: HYDROMORPHONE (Verified Allergy, Unknown, 09/21/14) MORPHINE (Unverified Allergy, Unknown, 04/27/16) Objective Vital Signs Last 24 Hour Vital Signs Date Time Temp Pulse Resp B/P Pulse Ox O2 Delivery O2 Flow Rate FiO2 05/04/16 09:23 142/64 05/04/16 09:23 69 142/64 05/04/16 09:22 69 142/64 05/04/16 08:24 98.0 70 20 141/85 98 Room Air 05/04/16 07:15 Nasal Cannula 2.0 05/04/16 07:15 97 Nasal Cannula 2.0 05/04/16 04:00 97.7 73 18 134/60 94 Room Air 05/04/16 00:00 97.9 67 18 142/74 97 Nasal Cannula 2.0 05/03/16 21:29 71 121/51 05/03/16 20:00 Nasal Cannula 2.0 05/03/16 20:00 97 Nasal Cannula 2.0 05/03/16 20:00 97.9 71 18 121/51 100 Nasal Cannula 2.0 05/03/16 16:36 98.2 62 20 140/62 100 Nasal Cannula 2.0 05/03/16 12:01 98.0 65 20 138/65 100 Nasal Cannula 2.0 Height (Feet): 5 Height (Inches): 6.00 Weight (Pounds): 150 General Appearance: no acute distress HEENT: normocephalic Respiratory/Chest: lungs clear Cardiovascular: normal rate Abdomen: soft, non tender Extremities: no edema, other - finger clubbing Skin: ulcers Neurologic/Psychiatric: alert, responsive Laboratory Tests Test 05/04/16 05:20 White Blood Count 15.0 K/UL (4.8-10.8) H Red Blood Count 3.71 M/UL (4.20-5.40) L Hemoglobin 9.6 G/DL (12.0-16.0) L Hematocrit 30.2 % (37.0-47.0) L Mean Corpuscular Volume 81 FL (80-99) Mean Corpuscular Hemoglobin 26.0 PG (27.0-31.0) L Mean Corpuscular Hemoglobin Concent 31.9 G/DL (32.0-36.0) L Red Cell Distribution Width 16.9 % (11.6-14.8) H Platelet Count 828 K/UL (150-450) H Mean Platelet Volume 6.3 FL (6.5-10.1) L Neutrophils (%) (Auto) % (45.0-75.0) Lymphocytes (%) (Auto) % (20.0-45.0) Monocytes (%) (Auto) % (1.0-10.0) Eosinophils (%) (Auto) % (0.0-3.0) Basophils (%) (Auto) % (0.0-2.0) Differential Total Cells Counted 100 Neutrophils % (Manual) 69 % (45-75) Lymphocytes % (Manual) 18 % (20-45) L Monocytes % (Manual) 6 % (1-10) Eosinophils % (Manual) 6 % (0-3) H Basophils % (Manual) 0 % (0-2) Band Neutrophils 1 % (0-8) Platelet Estimate Increased H Platelet Morphology Normal Anisocytosis 1+ Sodium Level 134 mEQ/L (135-145) L Potassium Level 4.6 mEQ/L (3.4-4.9) Chloride Level 96 mEQ/L (98-107) L Carbon Dioxide Level 21 mEQ/L (20-30) Anion Gap 17 (5-15) H Blood Urea Nitrogen 16 mg/dL (7-23) Creatinine 0.6 mg/dL (0.5-0.9) Estimat Glomerular Filtration Rate mL/min (>60) Glucose Level 107 mg/dL (74-106) H Calcium Level 9.0 mg/dL (8.6-10.2) Total Bilirubin 0.2 mg/dL (0.0-1.2) Aspartate Amino Transf (AST/SGOT) 12 U/L (5-40) Alanine Aminotransferase (ALT/SGPT) 5 U/L (3-33) Alkaline Phosphatase 57 U/L (35-104) Pro-B-Type Natriuretic Peptide 407 pg/mL (0-450) Total Protein 6.3 g/dL (6.6-8.7) L Albumin 2.7 g/dL (3.5-5.2) L Globulin 3.6 g/dL Albumin/Globulin Ratio 0.7 (1.0-2.7) L Current Medications Medications (Trade) Dose Ordered Sig/Rupert Route PRN Reason Start Time Stop Time Status Last Admin Dose Admin Acetaminophen (Tylenol) 650 mg Q6H PRN ORAL Mild Pain/Temp > 100.5 04/27/16 19:30 05/27/16 19:29 Amlodipine Besylate (Norvasc) 5 mg Q12HR ORAL 04/27/16 21:00 05/27/16 20:59 05/04/16 09:22 Atorvastatin Calcium (Lipitor) 20 mg BEDTIME ORAL 04/27/16 21:00 05/27/16 20:59 05/03/16 21:29 Dextrose (Dextrose 50%) STAT PRN IV Hypoglycemia 04/27/16 20:00 05/27/16 19:59 Dipyridamole/ Aspirin (Aggrenox) 1 cap Q12HR ORAL 04/27/16 21:00 05/27/16 20:59 05/04/16 09:20 Ertapenem/Sodium Chloride (INVanz/Sodium Chloride 100ml bag) 100 ml @ 200 mls/hr Q24H IVPB 05/02/16 11:45 05/07/16 11:44 05/03/16 16:40 Ferrous Sulfate (Feosol) 325 mg THREE TIMES A DAY ORAL 04/28/16 09:00 05/28/16 08:59 05/04/16 09:20 Heparin Sodium (Porcine) (Heparin 5000 units/ml) 5,000 units EVERY 12 HOURS SUBQ 04/27/16 21:00 05/27/16 20:59 05/04/16 09:25 Insulin Aspart (NovoLOG) BEFORE MEALS AND HS SUBQ 04/27/16 21:00 05/27/16 20:59 05/03/16 21:31 Lactobacillus Acidophilus (Culturelle) 1 tab Q8HR ORAL 04/27/16 22:00 05/27/16 21:59 05/04/16 06:33 Levothyroxine Sodium (Synthroid) 150 mcg DAILY@0630 ORAL 05/01/16 06:30 05/31/16 06:29 05/04/16 06:32 Levothyroxine Sodium 25 mcg 25 mcg DAILY@0630 ORAL 05/01/16 06:30 05/31/16 06:29 05/04/16 06:32 Lisinopril 40 mg 40 mg DAILY ORAL 05/02/16 09:00 06/01/16 08:59 05/04/16 09:23 Memantine (Namenda) 10 mg DAILY ORAL 04/28/16 09:00 05/28/16 08:59 05/04/16 09:21 Metformin HCl (Glucophage) 1,000 mg BID ORAL 04/28/16 09:00 05/28/16 08:59 05/04/16 09:21 Metoprolol Succinate (Toprol XL) 25 mg DAILY ORAL 04/28/16 09:00 05/28/16 08:59 05/04/16 09:23 Neomycin/ Polymyxin/ Bacitracin (Neosporin Oint 15gm) 1 applic TWICE A DAY TOPIC 05/02/16 18:00 06/01/16 17:59 05/03/16 17:45 Sodium Hypochlorite (Dakin's Quarter Strength) 1 applic EVERY 12 HOURS TOPIC 04/28/16 21:00 05/28/16 20:59 05/03/16 21:28 Tramadol HCl (Ultram) 50 mg TID PRN ORAL SEVERE PAIN 04/27/16 20:00 05/04/16 19:59 05/01/16 16:53 Vancomycin HCl (Vanco rx to dose) 1 ea DAILY PRN MISC Per rx protocol 04/27/16 23:30 05/27/16 23:29 Vancomycin HCl/ Dextrose (Vancomycin/D5W 250ml) 250 ml @ 167 mls/hr Q24H IVPB 05/01/16 15:00 05/06/16 14:59 05/03/16 17:45 EFRAIN GARCIA May 04, 2016 10:25
[2016-05-04] MEDS: Neosporin Oint 15gm TOPIC SCH ×2 (11:15→17:22)
--- NOTE | 2016-05-04 15:50 | Wound Nurse Progress Note ---
Wound RN Progress Note Wound Consult Wound care to s/p flap provided as ordered, upon assessment noted sutures remain intact however noted right side of flap beginning to dehiscence along suture line ,Wound bed is pink, Left side of wound noted with good progress intact flap. Noted site with moderate serosanguineous drainage. Tolerated treatment well, no c/o pain to site. Dressing dry and intact. Patient repositioned to offload affected area. Dr. George made aware with no new orders at this time, continue with current treatment as ordered. Assigned RNs made aware of findings. Assigned evening RN made aware to continue current treatment as previously ordered. SAMMIE BARLOW May 04, 2016 15:50
--- NOTE | 2016-05-04 15:53 | Diagnostic Imaging Report ---
Indications: COUGH Technique: Portable AP chest Findings: Comparison: 05/01/2016 Inspiratory effort has decreased. Size of the cardiac silhouette has apparently increased, still within normal limits. Pulmonary vasculature remains within normal limits. Lungs and pleura remain clear. IMPRESSION: Apparent increase in heart size likely secondary to decreased inspiration Otherwise no evidence of acute disease, unchanged
[2016-05-04 19:47] LABS: APPEARANCE,URINE CLEAR; KETONES,URINE NEGATIVE (NEGATIVE); LEUKOCYTE ESTERASE ,URINE 1+ (NEGATIVE); NITRITE,URINE NEGATIVE (NEGATIVE); PH,URINE 5 (4.5-8.0); PROTEIN,URINE 2+ (NEGATIVE); UROBILINOGEN,URINE NORMAL MG/DL (0.0-1.0)
[2016-05-04 20:21] LABS: AMORPHOUS SEDIMENT,UR FEW /LPF; BACTERIA,URINE MANY /HPF; SQUAMOUS EPITHELIAL CELL,UR FEW /LPF (NONE/OCC)
[2016-05-04] MEDS: Atorvastatin 20mg tab ORAL SCH (20:49)
[2016-05-05 04:00] VITALS: BP 140/64
--- NOTE | 2016-05-05 04:37 | Discharge Summary ---
DATE OF ADMISSION: 04/27/2016 DATE OF DISCHARGE: 05/04/2016 ADMISSION DIAGNOSES: 1. Infected sacral flap. 2. Stroke. 3. Hypertension. 4. Diabetes. 5. Failure to thrive. 6. Encephalopathy. 7. Dementia. DISCHARGE DIAGNOSES: 1. Infected sacral flap. 2. Stroke. 3. Hypertension. 4. Diabetes. 5. Failure to thrive. 6. Encephalopathy. 7. Dementia. 8. Status post flap revision and repair . HISTORY AND HOSPITAL COURSE: The patient is an 81-year-old female who was [facility]. She had a prior flap done, but the flap had dehisced at the senior living and became acutely infected. She was admitted. She received intravenous antibiotics. Surgical consultation was obtained. Once the patient is stabilized, she underwent an complicated flap revision. On discharge, she was doing well. She will be discharged back to the [facility] facility to complete intravenous antibiotic therapy there. frequently with instructions to keep pressure off of the sacral flap. Plan of care was discussed the patient's son. DIET: A cardiac, diabetic diet. ACTIVITY: Ad-priya. FOLLOWUP: The patient will follow up in one to two days at the [facility] facility. Dennis Gonzalez M.D. DR: ANN-MARIE JOB#: [id number] CC:
[2016-05-05] MEDS: NovoLOG Insulin Flexpen SUBQ SCH ×4 (05:54→21:00)
[2016-05-05] MEDS: Levothyroxine 25mcg tab ORAL SCH (05:55)
[2016-05-05] MEDS: Lactobacillus-GG tablet ORAL SCH ×3 (05:56→23:20)
--- NOTE | 2016-05-05 05:57 | Progress Note ---
DATE: 05/04/2016 CARDIOLOGY PROGRESS NOTE SUBJECTIVE: She is without new distress. Vitals signs remained stable. No shortness of breath. Wound care is noted. Surgical followup appreciated. OBJECTIVE: VITAL SIGNS: Blood pressure 140/66, pulse 71, respirations 18, and afebrile. No signs of congestive heart failure. Stable from cardiovascular standpoint. Chest x-ray reviewed and no acute process. Darius Duran M.D. DR: Shasha JOB#: [id number] CC:
[2016-05-05 08:26] VITALS: BP 154/62
[2016-05-05] MEDS: Memantine 10mg tab ORAL SCH (08:55)
[2016-05-05] MEDS: metFORMIN 500mg tab ORAL SCH ×2 (08:56→18:18)
[2016-05-05] MEDS: Aggrenox Cap ORAL SCH ×2 (08:56→23:20)
[2016-05-05] MEDS: Lisinopril 20mg tab ORAL SCH (08:56)
[2016-05-05] MEDS: Heparin 5000 units/ml inj SUBQ SCH ×2 (08:57→23:28)
[2016-05-05] MEDS: Dakin's 0.125% Soln (Quarter Strength) 16oz TOPIC SCH ×2 (09:00→21:00)
[2016-05-05] MEDS: Neosporin Oint 15gm TOPIC SCH ×2 (11:20→18:19)
--- NOTE | 2016-05-05 11:26 | Infectious Diseases Prog Note ---
"Assessment/Plan Assessment/Plan antibiotics : vancomycin iv, ertapenem A 1. 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 CVA 5. DM 6. HTN P 1. continue vancomycin iv 2 more days 2. continue ertpaenem iv 3 more days 3. will follow up cultures Subjective Constitutional: Denies: chills, fever Respiratory: Denies: dry cough, shortness of breath Gastrointestinal/Abdominal: Denies: diarrhea, nausea, vomiting Musculoskeletal: Denies: pain Allergies: Coded Allergies: HYDROMORPHONE (Verified Allergy, Unknown, 09/21/14) MORPHINE (Unverified Allergy, Unknown, 04/27/16) Objective Vital Signs Last 24 Hour Vital Signs Date Time Temp Pulse Resp B/P Pulse Ox O2 Delivery O2 Flow Rate FiO2 05/05/16 08:56 154/62 05/05/16 08:55 58 154/62 05/05/16 08:55 58 154/62 05/05/16 08:26 98.2 58 20 154/62 98 Nasal Cannula 2.0 05/05/16 04:00 97.6 66 18 140/64 100 Nasal Cannula 2.0 05/04/16 23:55 97.3 68 18 135/61 100 Nasal Cannula 2.0 05/04/16 20:48 71 140/66 05/04/16 20:00 97.4 71 18 140/66 100 Nasal Cannula 2.0 05/04/16 19:32 Nasal Cannula 2.0 28 05/04/16 19:32 98 Nasal Cannula 2.0 28 05/04/16 16:21 98.6 72 20 128/65 98 Room Air 05/04/16 12:19 98.4 68 20 116/52 98 Room Air Height (Feet): 5 Height (Inches): 6.00 Weight (Pounds): 150 Respiratory/Chest: lungs clear Cardiovascular: normal rate, regular rhythm, no gallop/murmur Abdomen: soft, non tender Extremities: no edema Skin: other - sacral flap clean Microbiology Date/Time Source Procedure Growth Status 05/04/16 19:30 Urine,Clean Catch Urine Culture - Preliminary NO GROWTH Resulted Laboratory Tests Test 05/04/16 19:30 Urine Color Yellow Urine Appearance Clear Urine pH 5 (4.5-8.0) Urine Specific [place] 1.020 (1.005-1.035) Urine Protein 2+ (NEGATIVE) H Urine Glucose (UA) Negative (NEGATIVE) Urine Ketones Negative (NEGATIVE) Urine Occult Blood Negative (NEGATIVE) Urine Nitrite Negative (NEGATIVE) Urine Bilirubin Negative (NEGATIVE) Urine Urobilinogen Normal MG/DL (0.0-1.0) Urine Leukocyte Esterase 1+ (NEGATIVE) H Urine RBC 2-4 /HPF (0 - 2) H Urine WBC 5-10 /HPF (0 - 2) H Urine Squamous Epithelial Cells Few /LPF (NONE/OCC) Urine Amorphous Sediment Few /LPF (NONE) H Urine Bacteria Many /HPF (NONE) H ALESSIO KRISHNAMURTHY May 05, 2016 11:26"
[2016-05-05 11:34] VITALS: BP 108/57
[2016-05-05 16:00] VITALS: BP 123/57
--- NOTE | 2016-05-05 17:02 | General Progress Note ---
Assessment/Plan Problem List: (1) Hyperglycemia ICD Codes: R73.9 - Hyperglycemia SNOMED: 43084698 (2) Altered mental status ICD Codes: R41.82 - Altered mental status SNOMED: 302105324 Qualifiers: Qualified Codes: R41.82 - Altered mental status, unspecified (3) Sepsis ICD Codes: A41.9 - Sepsis SNOMED: 48252343 (4) Altered mental status ICD Codes: R41.82 - Altered mental status, unspecified SNOMED: 693263675 Qualifiers: Qualified Codes: R41.0 - Disorientation, unspecified (5) Stroke ICD Codes: I63.9 - Stroke SNOMED: 254608852 Qualifiers: (6) Hypothyroid ICD Codes: E03.9 - Hypothyroid SNOMED: 92671260 Qualifiers: Qualified Codes: E03.9 - Hypothyroidism, unspecified (7) Decubitus ulcer, stage 4 with infection ICD Codes: L89.94 - Pressure ulcer of unspecified site, stage 4 SNOMED: 5259473, 555895326 Status: stable, progressing Assessment/Plan wound care/dressing changes per surgery abx monitor bs antiplt rx dvt/stress ulcer prophylaxis frequent turning encourage pos. pain rx as needed ?dc planning if ok with all will repeat wbc in am Subjective ROS Limited/Unobtainable: No Constitutional: Reports: malaise, weakness HEENT: Reports: no symptoms Cardiovascular: Reports: no symptoms Respiratory: Reports: no symptoms Gastrointestinal/Abdominal: Reports: no symptoms Genitourinary: Reports: no symptoms Neurologic/Psychiatric: Reports: pre-existing deficit Endocrine: Reports: no symptoms Hematologic/Lymphatic: Reports: anemia Allergies: Coded Allergies: HYDROMORPHONE (Verified Allergy, Unknown, 09/21/14) MORPHINE (Unverified Allergy, Unknown, 04/27/16) All Systems: reviewed and negative except above Subjective s/p uncomplicated flap revision. denies pain. denies sob. elevated wbc noted. Objective Last 24 Hour Vital Signs Date Time Temp Pulse Resp B/P Pulse Ox O2 Delivery O2 Flow Rate FiO2 05/05/16 11:34 98.0 55 20 108/57 98 Nasal Cannula 2.0 05/05/16 08:56 154/62 05/05/16 08:55 58 154/62 05/05/16 08:55 58 154/62 05/05/16 08:26 98.2 58 20 154/62 98 Nasal Cannula 2.0 05/05/16 04:00 97.6 66 18 140/64 100 Nasal Cannula 2.0 05/04/16 23:55 97.3 68 18 135/61 100 Nasal Cannula 2.0 05/04/16 20:48 71 140/66 05/04/16 20:00 97.4 71 18 140/66 100 Nasal Cannula 2.0 05/04/16 19:32 Nasal Cannula 2.0 28 05/04/16 19:32 98 Nasal Cannula 2.0 28 Intake and Output 05/04/16 05/05/16 19:00 07:00 Intake Total 1330 ml 460 ml Output Total 800 ml 750 ml Balance 530 ml -290 ml Intake Oral 1080 ml 460 ml IV Total 250 ml Output Urine Total 800 ml 750 ml Laboratory Tests 05/04/16 19:30: Urine Color Yellow, Urine Appearance Clear, Urine pH 5, Urine Specific [place] 1.020, Urine Protein 2+H, Urine Glucose (UA) Negative, Urine Ketones Negative, Urine Occult Blood Negative, Urine Nitrite Negative, Urine Bilirubin Negative, Urine Urobilinogen Normal, Urine Leukocyte Esterase 1+H, Urine RBC 2-4H, Urine WBC 5-10H, Urine Squamous Epithelial Cells Few, Urine Amorphous Sediment FewH, Urine Bacteria ManyH Height (Feet): 5 Height (Inches): 6.00 Weight (Pounds): 150 Objective General Appearance: WD/WN, alert Neck: supple Cardiovascular: regular rhythm Respiratory/Chest: chest wall non-tender, lungs clear, normal breath sounds, no respiratory distress, no accessory muscle use Abdomen: normal bowel sounds, non tender, soft, no organomegaly, no mass Edema: no edema noted Arm (L), no edema noted Arm (R), no edema noted Leg (L), no edema noted Leg (R), no edema noted Pedal (L), no edema noted Pedal (R), no edema noted Generalized Objective bandage over sacrum ISIDORO BYRNE May 05, 2016 17:02
[2016-05-05] MEDS ORDERED: Tubing IV Secondary IV ONE (18:15)
[2016-05-05 20:00] VITALS: BP 130/57
--- NOTE | 2016-05-05 22:38 | Progress Note ---
DATE: 05/05/2016 SUBJECTIVE: The patient was evaluated today. Her wound repair is intact. There is a minimum amount is scant serous drainage through a portion of the suture line but no significant defects in the closure. PLAN: Continue current wound care. Transfer to [facility] at the discretion of the primary care physician. Herbert George M.D. DR: Sanjay JOB#: [id number] CC:
[2016-05-05] MEDS: Atorvastatin 20mg tab ORAL SCH (23:20)
[2016-05-05 23:48] VITALS: BP 157/71
[2016-05-06 04:16] VITALS: BP 127/51
--- NOTE | 2016-05-06 04:47 | Progress Note ---
DATE: 05/05/2016 CARDIOLOGY PROGRESS NOTE SUBJECTIVE: The patient is status post flap revision. Oral intake is adequate. is better controlled. OBJECTIVE: VITAL SIGNS: The patient is afebrile, blood pressure 108/57 to 154/62 with a blood pressure range, heart rate 55 to 68, and respiratory 18 to 20. LUNGS: Moderate breath sounds. HEART: Regular rhythm and rate. Normal S1, S2 with a fourth heart sound. ABDOMEN: Soft and nontender. EXTREMITIES: With trace edema. Wound site has dressing in place. LABORATORY DATA: Cultures are noted for polymicrobial pathogen. IMPRESSION: 1. Stable cardiovascular parameters. 2. Sinus bradycardia of no clinical significance. 3. Diabetes mellitus with adequate control. 4. The patient is hypothyroid, and was on replacement therapy. We will expect euthyroid state with ongoing replacement of increasing doses. Beta-mine doses will be increased in view of low range heart rates. Darius Duran M.D. DR: COREY JOB#: [id number] CC:
[2016-05-06] MEDS: NovoLOG Insulin Flexpen SUBQ SCH ×4 (06:30→21:09)
[2016-05-06] MEDS: Levothyroxine 25mcg tab ORAL SCH (06:34)
[2016-05-06] MEDS: Lactobacillus-GG tablet ORAL SCH ×3 (06:34→21:03)
[2016-05-06 07:27] LABS: MEAN CORPUSCULAR HEMOGLOBIN 26.2 PG (27.0-31.0); MEAN CORPUSCULAR HGB CONC 32.2 G/DL (32.0-36.0); MEAN CORPUSCULAR VOLUME 81 FL (80-99); MEAN PLATELET VOLUME 7.1 FL (6.5-10.1); PLATELET COUNT 970 K/UL (150-450); WHITE BLOOD COUNT 12.7 K/UL (4.8-10.8)
[2016-05-06 07:39] LABS: ALANINE AMINOTRANSFERASE < 5 U/L (3-33); ALBUMIN/GLOBULIN RATIO 0.7 (1.0-2.7); ANION GAP 17 (5-15); ASPARTATE AMINO TRANSFERASE 11 U/L (5-40); CALCIUM 9.2 mg/dL (8.6-10.2); CARBON DIOXIDE 22 mEQ/L (20-30); CHLORIDE 96 mEQ/L (98-107); CREATININE 0.6 mg/dL (0.5-0.9); HEMOLYSIS 11; MAGNESIUM 1.3 mg/dL (1.7-2.5); POTASSIUM 4.9 mEQ/L (3.4-4.9); SODIUM 135 mEQ/L (135-145); TOTAL PROTEIN 6.3 g/dL (6.6-8.7)
[2016-05-06 08:22] VITALS: BP 135/54
[2016-05-06] MEDS: Lisinopril 20mg tab ORAL SCH (09:25)
[2016-05-06] MEDS: metFORMIN 500mg tab ORAL SCH ×2 (09:25→17:18)
[2016-05-06] MEDS: Aggrenox Cap ORAL SCH ×2 (09:25→21:03)
[2016-05-06] MEDS: Memantine 10mg tab ORAL SCH (09:25)
[2016-05-06] MEDS: Heparin 5000 units/ml inj SUBQ SCH ×2 (09:27→21:07)
[2016-05-06] MEDS: Dakin's 0.125% Soln (Quarter Strength) 16oz TOPIC SCH ×2 (10:08→21:00)
[2016-05-06] MEDS: Neosporin Oint 15gm TOPIC SCH ×2 (10:08→17:18)
--- NOTE | 2016-05-06 11:01 | General Progress Note ---
Assessment/Plan Problem List: (1) Hyperglycemia ICD Codes: R73.9 - Hyperglycemia SNOMED: 27107386 (2) Altered mental status ICD Codes: R41.82 - Altered mental status SNOMED: 197257703 Qualifiers: Qualified Codes: R41.82 - Altered mental status, unspecified (3) Sepsis ICD Codes: A41.9 - Sepsis SNOMED: 56002030 (4) Altered mental status ICD Codes: R41.82 - Altered mental status, unspecified SNOMED: 290497739 Qualifiers: Qualified Codes: R41.0 - Disorientation, unspecified (5) Stroke ICD Codes: I63.9 - Stroke SNOMED: 906055236 Qualifiers: (6) Hypothyroid ICD Codes: E03.9 - Hypothyroid SNOMED: 14134034 Qualifiers: Qualified Codes: E03.9 - Hypothyroidism, unspecified (7) Decubitus ulcer, stage 4 with infection ICD Codes: L89.94 - Pressure ulcer of unspecified site, stage 4 SNOMED: 0501609, 386275060 Status: stable, progressing Assessment/Plan wound care/dressing changes per surgery abx monitor bs antiplt rx dvt/stress ulcer prophylaxis frequent turning encourage pos. pain rx as needed ?dc planning. 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 Subjective ROS Limited/Unobtainable: No Constitutional: Reports: malaise, weakness HEENT: Reports: no symptoms Cardiovascular: Reports: no symptoms Respiratory: Reports: no symptoms Gastrointestinal/Abdominal: Reports: no symptoms Genitourinary: Reports: no symptoms Neurologic/Psychiatric: Reports: pre-existing deficit Endocrine: Reports: no symptoms Hematologic/Lymphatic: Reports: no symptoms Allergies: Coded Allergies: HYDROMORPHONE (Verified Allergy, Unknown, 09/21/14) MORPHINE (Unverified Allergy, Unknown, 04/27/16) All Systems: reviewed and negative except above Subjective s/p uncomplicated flap revision. denies pain. denies sob. elevated wbc noted- trending down. few wbc in urine. no accepting ecf yet Objective Last 24 Hour Vital Signs Date Time Temp Pulse Resp B/P Pulse Ox O2 Delivery O2 Flow Rate FiO2 05/06/16 09:55 98 Nasal Cannula 2.0 28 05/06/16 09:55 Nasal Cannula 2.0 28 05/06/16 09:26 65 135/54 05/06/16 09:25 135/54 05/06/16 09:25 65 135/54 05/06/16 08:22 97.8 65 20 135/54 98 Nasal Cannula 2.0 05/06/16 04:16 97.0 63 18 127/51 99 Nasal Cannula 2.0 99 05/05/16 23:48 97.2 57 18 157/71 99 Nasal Cannula 2.0 99 05/05/16 23:21 57 157/57 05/05/16 20:00 98.2 60 20 130/57 98 Room Air 05/05/16 16:00 96.8 56 18 123/57 98 Room Air 05/05/16 11:34 98.0 55 20 108/57 98 Nasal Cannula 2.0 Intake and Output 05/05/16 05/06/16 19:00 07:00 Intake Total 490 ml 480 ml Output Total 480 ml 1075 ml Balance 10 ml -595 ml Intake Oral 240 ml 480 ml IV Total 250 ml Output Urine Total 480 ml 1075 ml Laboratory Tests 05/06/16 04:40: White Blood Count 12.7H, Red Blood Count 4.00L, Hemoglobin 10.5L, Hematocrit 32.5L, Mean Corpuscular Volume 81, Mean Corpuscular Hemoglobin 26.2L, Mean Corpuscular Hemoglobin Concent 32.2, Red Cell Distribution Width 17.0H, Platelet Count 970H, Mean Platelet Volume 7.1, Neutrophils (%) (Auto) , Lymphocytes (%) (Auto) , Monocytes (%) (Auto) , Eosinophils (%) (Auto) , Basophils (%) (Auto) , Neutrophils % (Manual) [Pending], Lymphocytes % (Manual) [Pending], Platelet Estimate [Pending], Platelet Morphology [Pending], Sodium Level 135, Potassium Level 4.9, Chloride Level 96L, Carbon Dioxide Level 22, Anion Gap 17H, Blood Urea Nitrogen 14, Creatinine 0.6, Estimat Glomerular Filtration Rate , Glucose Level 86, Calcium Level 9.2, Magnesium Level 1.3L, Total Bilirubin < 0.2, Aspartate Amino Transf (AST/SGOT) 11, Alanine Aminotransferase (ALT/SGPT) < 5, Alkaline Phosphatase 50, Pro-B-Type Natriuretic Peptide 855H, Total Protein 6.3L, Albumin 2.6L, Globulin 3.7, Albumin/Globulin Ratio 0.7L Height (Feet): 5 Height (Inches): 6.00 Weight (Pounds): 150 Objective General Appearance: WD/WN, alert Neck: supple Cardiovascular: regular rhythm Respiratory/Chest: chest wall non-tender, lungs clear, normal breath sounds, no respiratory distress, no accessory muscle use Abdomen: normal bowel sounds, non tender, soft, no organomegaly, no mass Edema: no edema noted Arm (L), no edema noted Arm (R), no edema noted Leg (L), no edema noted Leg (R), no edema noted Pedal (L), no edema noted Pedal (R), no edema noted Generalized Objective bandage over sacrum ISIDORO BYRNE May 06, 2016 11:01
[2016-05-06 11:56] VITALS: BP 132/60
--- NOTE | 2016-05-06 11:59 | Infectious Diseases Prog Note ---
"Assessment/Plan Assessment/Plan antibiotics : vancomycin iv, ertapenem A 1. 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 CVA 5. DM 6. HTN P 1. continue vancomycin iv 1 more day 2. continue ertpaenem iv 2 more days 3. will follow up cultures Subjective ROS Limited/Unobtainable: Yes Allergies: Coded Allergies: HYDROMORPHONE (Verified Allergy, Unknown, 09/21/14) MORPHINE (Unverified Allergy, Unknown, 04/27/16) Objective Vital Signs Last 24 Hour Vital Signs Date Time Temp Pulse Resp B/P Pulse Ox O2 Delivery O2 Flow Rate FiO2 05/06/16 11:56 98.4 68 20 132/60 98 Nasal Cannula 2.0 05/06/16 09:55 98 Nasal Cannula 2.0 28 05/06/16 09:55 Nasal Cannula 2.0 28 05/06/16 09:26 65 135/54 05/06/16 09:25 135/54 05/06/16 09:25 65 135/54 05/06/16 08:22 97.8 65 20 135/54 98 Nasal Cannula 2.0 05/06/16 04:16 97.0 63 18 127/51 99 Nasal Cannula 2.0 99 05/05/16 23:48 97.2 57 18 157/71 99 Nasal Cannula 2.0 99 05/05/16 23:21 57 157/57 05/05/16 20:00 98.2 60 20 130/57 98 Room Air 05/05/16 16:00 96.8 56 18 123/57 98 Room Air Height (Feet): 5 Height (Inches): 6.00 Weight (Pounds): 150 Respiratory/Chest: lungs clear Cardiovascular: normal rate, regular rhythm, no gallop/murmur Abdomen: soft, non tender Extremities: no edema Microbiology Date/Time Source Procedure Growth Status 05/04/16 19:30 Urine,Clean Catch Urine Culture - Final NO GROWTH AFTER 48 HOURS Complete Laboratory Tests Test 05/06/16 04:40 White Blood Count 12.7 K/UL (4.8-10.8) H Red Blood Count 4.00 M/UL (4.20-5.40) L Hemoglobin 10.5 G/DL (12.0-16.0) L Hematocrit 32.5 % (37.0-47.0) L Mean Corpuscular Volume 81 FL (80-99) Mean Corpuscular Hemoglobin 26.2 PG (27.0-31.0) L Mean Corpuscular Hemoglobin Concent 32.2 G/DL (32.0-36.0) Red Cell Distribution Width 17.0 % (11.6-14.8) H Platelet Count 970 K/UL (150-450) H Mean Platelet Volume 7.1 FL (6.5-10.1) Neutrophils (%) (Auto) % (45.0-75.0) Lymphocytes (%) (Auto) % (20.0-45.0) Monocytes (%) (Auto) % (1.0-10.0) Eosinophils (%) (Auto) % (0.0-3.0) Basophils (%) (Auto) % (0.0-2.0) Neutrophils % (Manual) Pending Lymphocytes % (Manual) Pending Platelet Estimate Pending Platelet Morphology Pending Sodium Level 135 mEQ/L (135-145) Potassium Level 4.9 mEQ/L (3.4-4.9) Chloride Level 96 mEQ/L (98-107) L Carbon Dioxide Level 22 mEQ/L (20-30) Anion Gap 17 (5-15) H Blood Urea Nitrogen 14 mg/dL (7-23) Creatinine 0.6 mg/dL (0.5-0.9) Estimat Glomerular Filtration Rate mL/min (>60) Glucose Level 86 mg/dL (74-106) Calcium Level 9.2 mg/dL (8.6-10.2) Magnesium Level 1.3 mg/dL (1.7-2.5) L Total Bilirubin < 0.2 mg/dL (0.0-1.2) Aspartate Amino Transf (AST/SGOT) 11 U/L (5-40) Alanine Aminotransferase (ALT/SGPT) < 5 U/L (3-33) Alkaline Phosphatase 50 U/L (35-104) Pro-B-Type Natriuretic Peptide 855 pg/mL (0-450) H Total Protein 6.3 g/dL (6.6-8.7) L Albumin 2.6 g/dL (3.5-5.2) L Globulin 3.7 g/dL Albumin/Globulin Ratio 0.7 (1.0-2.7) L ALESSIO KRISHNAMURTHY May 06, 2016 11:59"
[2016-05-06 13:46] LABS: ANISOCYTOSIS 1+; BAND NEUTROPHILS % (MANUAL) 0 % (0-8); BASOPHILS % (MANUAL) 2 % (0-2); EOSINOPHILS % (MANUAL) 1 % (0-3); HYPOCHROMASIA 1+; LYMPHOCYTES % (MANUAL) 41 % (20-45); NEUTROPHILS % (MANUAL) 48 % (45-75); PLATELET ESTIMATE INCREASED; PLATELET MORPHOLOGY NORMAL; TOTAL CELLS COUNTED 100
--- NOTE | 2016-05-06 13:55 | Wound Nurse Progress Note ---
Wound RN Progress Note Wound Consult Wound care to s/p flap provided as ordered,site cleansed ,pat dried, applied treatment as ordered, site covered ,noted scant amount of serosanguineous drainage, no s/s of infection at this time, noted sutures intact, noted pink color along suture line, patient tolerated treatment well, no c/o pain at this time, patient remains clean and dry, repositioned to offload affected area. SAMMIE BARLOW May 06, 2016 13:55
[2016-05-06 15:56] VITALS: BP 133/53
[2016-05-06 20:00] VITALS: BP 136/53
[2016-05-06] MEDS: Atorvastatin 20mg tab ORAL SCH (21:03)
[2016-05-07 00:02] VITALS: BP 132/56
[2016-05-07 04:00] VITALS: BP 134/59
[2016-05-07] MEDS: NovoLOG Insulin Flexpen SUBQ SCH ×4 (06:21→20:49)
[2016-05-07] MEDS: Levothyroxine 25mcg tab ORAL SCH (07:00)
[2016-05-07] MEDS: Lactobacillus-GG tablet ORAL SCH ×3 (07:01→20:48)
--- NOTE | 2016-05-07 07:33 | General Progress Note ---
Assessment/Plan Problem List: (1) Hyperglycemia ICD Codes: R73.9 - Hyperglycemia SNOMED: 00784141 (2) Altered mental status ICD Codes: R41.82 - Altered mental status SNOMED: 383921938 Qualifiers: Qualified Codes: R41.82 - Altered mental status, unspecified (3) Sepsis ICD Codes: A41.9 - Sepsis SNOMED: 36529789 (4) Altered mental status ICD Codes: R41.82 - Altered mental status, unspecified SNOMED: 325980250 Qualifiers: Qualified Codes: R41.0 - Disorientation, unspecified (5) Stroke ICD Codes: I63.9 - Stroke SNOMED: 532904836 Qualifiers: (6) Hypothyroid ICD Codes: E03.9 - Hypothyroid SNOMED: 88795185 Qualifiers: Qualified Codes: E03.9 - Hypothyroidism, unspecified (7) Decubitus ulcer, stage 4 with infection ICD Codes: L89.94 - Pressure ulcer of unspecified site, stage 4 SNOMED: 3403352, 350643516 Status: stable, progressing Assessment/Plan wound care/dressing changes per surgery abx per id follow up urine cultures monitor bs antiplt rx dvt/stress ulcer prophylaxis frequent turning encourage pos. pain rx as needed ?dc planning. 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 Subjective ROS Limited/Unobtainable: No Constitutional: Reports: malaise, weakness HEENT: Reports: no symptoms Cardiovascular: Reports: no symptoms Respiratory: Reports: no symptoms Gastrointestinal/Abdominal: Reports: no symptoms Genitourinary: Reports: no symptoms Neurologic/Psychiatric: Reports: pre-existing deficit Endocrine: Reports: no symptoms Hematologic/Lymphatic: Reports: anemia Allergies: Coded Allergies: HYDROMORPHONE (Verified Allergy, Unknown, 09/21/14) MORPHINE (Unverified Allergy, Unknown, 04/27/16) All Systems: reviewed and negative except above Subjective s/p uncomplicated flap revision. denies pain. denies sob. Ucx negative so far. Objective Last 24 Hour Vital Signs Date Time Temp Pulse Resp B/P Pulse Ox O2 Delivery O2 Flow Rate FiO2 05/07/16 04:00 96.4 64 20 134/59 97 Room Air 05/07/16 00:02 97.3 61 20 132/56 97 Nasal Cannula 2.0 05/06/16 21:03 61 136/53 05/06/16 20:00 96.8 61 20 136/53 100 Nasal Cannula 2.0 05/06/16 19:12 Nasal Cannula 2.0 28 05/06/16 19:12 97 Nasal Cannula 2.0 28 05/06/16 15:56 98.0 61 20 133/53 98 Nasal Cannula 2.0 05/06/16 11:56 98.4 68 20 132/60 98 Nasal Cannula 2.0 05/06/16 09:55 98 Nasal Cannula 2.0 28 05/06/16 09:55 Nasal Cannula 2.0 28 05/06/16 09:26 65 135/54 05/06/16 09:25 135/54 05/06/16 09:25 65 135/54 05/06/16 08:22 97.8 65 20 135/54 98 Nasal Cannula 2.0 Intake and Output 05/06/16 05/07/16 19:00 07:00 Intake Total 1430 ml 400 ml Output Total 800 ml 700 ml Balance 630 ml -300 ml Intake Oral 1080 ml 300 ml IV Total 350 ml 100 ml Output Urine Total 800 ml 700 ml Laboratory Tests 05/06/16 14:05: Random Vancomycin Level 12.9 Height (Feet): 5 Height (Inches): 6.00 Weight (Pounds): 150 Objective General Appearance: WD/WN, alert Neck: supple Cardiovascular: regular rhythm Respiratory/Chest: chest wall non-tender, lungs clear, normal breath sounds, no respiratory distress, no accessory muscle use Abdomen: normal bowel sounds, non tender, soft, no organomegaly, no mass Edema: no edema noted Arm (L), no edema noted Arm (R), no edema noted Leg (L), no edema noted Leg (R), no edema noted Pedal (L), no edema noted Pedal (R), no edema noted Generalized Objective bandage over sacrum ISIDORO BYRNE May 07, 2016 07:33
[2016-05-07 08:00] VITALS: BP 141/59
[2016-05-07] MEDS: Lisinopril 20mg tab ORAL SCH (08:59)
[2016-05-07] MEDS: metFORMIN 500mg tab ORAL SCH ×2 (08:59→18:03)
[2016-05-07] MEDS: Dakin's 0.125% Soln (Quarter Strength) 16oz TOPIC SCH ×2 (09:00→20:48)
[2016-05-07] MEDS: Aggrenox Cap ORAL SCH ×2 (09:00→20:48)
[2016-05-07] MEDS: Heparin 5000 units/ml inj SUBQ SCH ×2 (09:01→21:06)
[2016-05-07] MEDS: Neosporin Oint 15gm TOPIC SCH ×2 (09:02→18:03)
[2016-05-07] MEDS: Memantine 10mg tab ORAL SCH (09:06)
--- NOTE | 2016-05-07 09:13 | Infectious Diseases Prog Note ---
Assessment/Plan Assessment/Plan A; infected sacral ulcer Wound dehiscence DM HPN MRSA & VRE colonization P: continue Ertapenem X 1 day , will receive last dose of Vancomycin tonight wound care Subjective ROS Limited/Unobtainable: Yes Constitutional: Reports: no symptoms Allergies: Coded Allergies: HYDROMORPHONE (Verified Allergy, Unknown, 09/21/14) MORPHINE (Unverified Allergy, Unknown, 04/27/16) Objective Vital Signs Last 24 Hour Vital Signs Date Time Temp Pulse Resp B/P Pulse Ox O2 Delivery O2 Flow Rate FiO2 05/07/16 08:59 66 141/59 05/07/16 08:59 141/59 05/07/16 08:59 66 141/59 05/07/16 08:00 97.0 66 18 141/59 95 Room Air 05/07/16 04:00 96.4 64 20 134/59 97 Room Air 05/07/16 00:02 97.3 61 20 132/56 97 Nasal Cannula 2.0 05/06/16 21:03 61 136/53 05/06/16 20:00 96.8 61 20 136/53 100 Nasal Cannula 2.0 05/06/16 19:12 Nasal Cannula 2.0 28 05/06/16 19:12 97 Nasal Cannula 2.0 28 05/06/16 15:56 98.0 61 20 133/53 98 Nasal Cannula 2.0 05/06/16 11:56 98.4 68 20 132/60 98 Nasal Cannula 2.0 05/06/16 09:55 98 Nasal Cannula 2.0 28 05/06/16 09:55 Nasal Cannula 2.0 28 05/06/16 09:26 65 135/54 05/06/16 09:25 135/54 05/06/16 09:25 65 135/54 Height (Feet): 5 Height (Inches): 6.00 Weight (Pounds): 150 General Appearance: no acute distress HEENT: mucous membranes moist Respiratory/Chest: lungs clear Cardiovascular: normal rate Abdomen: soft, non tender Extremities: no edema Skin: ulcers Neurologic/Psychiatric: alert, responsive Microbiology Date/Time Source Procedure Growth Status 05/04/16 19:30 Urine,Clean Catch Urine Culture - Final NO GROWTH AFTER 48 HOURS Complete Laboratory Tests Test 05/06/16 14:05 Random Vancomycin Level 12.9 ug/mL Current Medications Medications (Trade) Dose Ordered Sig/Rupert Route PRN Reason Start Time Stop Time Status Last Admin Dose Admin Acetaminophen (Tylenol) 650 mg Q6H PRN ORAL Mild Pain/Temp > 100.5 04/27/16 19:30 05/27/16 19:29 Amlodipine Besylate (Norvasc) 5 mg Q12HR ORAL 04/27/16 21:00 05/27/16 20:59 05/07/16 08:59 Atorvastatin Calcium (Lipitor) 20 mg BEDTIME ORAL 04/27/16 21:00 05/27/16 20:59 05/06/16 21:03 Dextrose (Dextrose 50%) STAT PRN IV Hypoglycemia 04/27/16 20:00 05/27/16 19:59 Dipyridamole/ Aspirin (Aggrenox) 1 cap Q12HR ORAL 04/27/16 21:00 05/27/16 20:59 05/07/16 09:00 Ertapenem/Sodium Chloride (INVanz/Sodium Chloride 100ml bag) 100 ml @ 200 mls/hr Q24H IVPB 05/02/16 11:45 05/08/16 23:59 05/06/16 11:49 Ferrous Sulfate (Feosol) 325 mg THREE TIMES A DAY ORAL 04/28/16 09:00 05/28/16 08:59 05/07/16 08:59 Heparin Sodium (Porcine) (Heparin 5000 units/ml) 5,000 units EVERY 12 HOURS SUBQ 04/27/16 21:00 05/27/16 20:59 05/07/16 09:01 Insulin Aspart (NovoLOG) BEFORE MEALS AND HS SUBQ 04/27/16 21:00 05/27/16 20:59 05/06/16 21:09 Lactobacillus Acidophilus (Culturelle) 1 tab Q8HR ORAL 04/27/16 22:00 05/27/16 21:59 05/07/16 07:01 Levothyroxine Sodium (Synthroid) 150 mcg DAILY@0630 ORAL 05/01/16 06:30 05/31/16 06:29 05/07/16 07:00 Levothyroxine Sodium 25 mcg 25 mcg DAILY@0630 ORAL 05/01/16 06:30 05/31/16 06:29 05/07/16 07:00 Lisinopril 40 mg 40 mg DAILY ORAL 05/02/16 09:00 06/01/16 08:59 05/07/16 08:59 Memantine (Namenda) 10 mg DAILY ORAL 04/28/16 09:00 05/28/16 08:59 05/07/16 09:06 Metformin HCl (Glucophage) 1,000 mg BID ORAL 04/28/16 09:00 05/28/16 08:59 05/07/16 08:59 Metoprolol Succinate (Toprol XL) 12.5 mg DAILY ORAL 05/06/16 09:00 06/05/16 08:59 05/07/16 08:59 Neomycin/ Polymyxin/ Bacitracin (Neosporin Oint 15gm) 1 applic TWICE A DAY TOPIC 05/02/16 18:00 06/01/16 17:59 05/07/16 09:02 Sodium Hypochlorite (Dakin's Quarter Strength) 1 applic EVERY 12 HOURS TOPIC 04/28/16 21:00 05/28/16 20:59 05/06/16 10:08 Vancomycin HCl (Vanco rx to dose) 1 ea DAILY PRN MISC Per rx protocol 04/27/16 23:30 05/27/16 23:29 Vancomycin HCl/ Dextrose (Vancomycin/D5W 250ml) 250 ml @ 167 mls/hr Q24H IVPB 05/01/16 15:00 05/07/16 23:59 05/06/16 15:10 EFRAIN GARCIA May 07, 2016 09:13
[2016-05-07 12:00] VITALS: BP 130/59
[2016-05-07 20:00] VITALS: BP 149/68
[2016-05-07] MEDS: Atorvastatin 20mg tab ORAL SCH (20:48)
--- NOTE | 2016-05-07 22:47 | Progress Note ---
DATE: 05/06/2016 CARDIOLOGY PROGRESS NOTE SUBJECTIVE: Status unchanged. Wound care ongoing following flap revision. OBJECTIVE: VITAL SIGNS: Blood pressure remained stable. Glucose control is adequate. . CARDIAC: Regular normal S1 and S2 with a fourth heart sound. ABDOMEN: Soft. EXTREMITIES: Without edema. LABORATORY DATA: Magnesium 1.3. IMPRESSION: 1. Status post flap revision. 2. Chronic diastolic congestive heart failure. 3. Hypertensive heart disease. 4. Type 2 diabetes mellitus. 5. Hypothyroidism. 6. Multi-infarct cerebrovascular disease. 7. Severe hypomagnesemia. PLAN: 1. Wound care. 2. Antibiotics. 3. Titrate antihypertensive and diabetic regimen as needed. 4. Intravenous magnesium ordered. Darius Duran M.D. DR: Constantine JOB#: [id number] CC:
[2016-05-08] VITALS: BP 155/67
[2016-05-08 04:10] VITALS: BP 147/64
[2016-05-08] MEDS: Levothyroxine 25mcg tab ORAL SCH (06:24)
[2016-05-08] MEDS: NovoLOG Insulin Flexpen SUBQ SCH ×4 (06:24→20:39)
[2016-05-08] MEDS: Lactobacillus-GG tablet ORAL SCH ×3 (06:24→21:26)
--- NOTE | 2016-05-08 06:37 | Progress Note ---
DATE: 05/07/2016 SUBJECTIVE: The patient continues on wound care following flap revision. She is on antibiotics. OBJECTIVE: VITAL SIGNS: Blood pressure 134/59, pulse 64, respiratory rate 28, and afebrile. Bradycardia improved with decreased dose of beta-mine several days ago. Glucose controlled, remains adequate. Oral intake is fair. NECK: Supple. LUNGS: Clear. CARDIAC: Regular rhythm and rate. Normal S1 and S2 with a fourth heart sound. ABDOMEN: Soft. EXTREMITIES: No edema. Wound site has dressing in place. IMPRESSION: 1. Hypertensive heart disease with controlled blood pressure. 2. Sinus bradycardia, resolved with low dose beta-mine. 3. Hypothyroid state, on replacement therapy. 4. Multiinfarct cerebrovascular disease with dementia, status post flap revision. PLAN: Continue observation on current regimen as well as thyroid replacement. Monitor TSH then adjust dosing accordingly. May consider discontinuation of current beta-mine in the near future. Darius Duran M.D. DR: Mahesh JOB#: [id number] CC:
[2016-05-08 08:11] VITALS: BP 161/77
[2016-05-08] MEDS: Memantine 10mg tab ORAL SCH (08:43)
[2016-05-08] MEDS: Lisinopril 20mg tab ORAL SCH (08:44)
[2016-05-08] MEDS: metFORMIN 500mg tab ORAL SCH ×2 (08:44→17:13)
[2016-05-08] MEDS: Aggrenox Cap ORAL SCH ×2 (08:45→20:41)
[2016-05-08] MEDS: Heparin 5000 units/ml inj SUBQ SCH ×2 (08:47→20:43)
[2016-05-08] MEDS: Neosporin Oint 15gm TOPIC SCH ×2 (08:49→17:13)
--- NOTE | 2016-05-08 11:16 | Infectious Diseases Prog Note ---
"Assessment/Plan Assessment/Plan antibiotics : ertapenem A 1. 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 CVA 5. DM 6. HTN P 1. d/c ertapenem 2. observe off antibiotics Subjective ROS Limited/Unobtainable: Yes Allergies: Coded Allergies: HYDROMORPHONE (Verified Allergy, Unknown, 09/21/14) MORPHINE (Unverified Allergy, Unknown, 04/27/16) Objective Vital Signs Last 24 Hour Vital Signs Date Time Temp Pulse Resp B/P Pulse Ox O2 Delivery O2 Flow Rate FiO2 05/08/16 08:44 75 161/77 05/08/16 08:44 161/77 05/08/16 08:43 75 161/77 05/08/16 08:11 97.2 75 18 161/77 96 Room Air 05/08/16 04:10 97.9 72 20 147/64 96 Room Air 05/08/16 00:00 97.3 73 20 155/67 96 Room Air 05/07/16 20:48 69 149/68 05/07/16 20:00 97.7 69 21 149/68 97 Room Air 05/07/16 19:30 95 Room Air 21 05/07/16 19:30 Room Air 21 05/07/16 16:00 97.6 63 20 95 Room Air 68 05/07/16 12:00 96.8 66 18 130/59 95 Room Air Height (Feet): 5 Height (Inches): 6.00 Weight (Pounds): 150 Respiratory/Chest: lungs clear Cardiovascular: normal rate, regular rhythm, no gallop/murmur Abdomen: soft, non tender Extremities: no edema ALESSIO KRISHNAMURTHY May 08, 2016 11:16"
--- NOTE | 2016-05-08 11:49 | General Progress Note ---
Assessment/Plan Problem List: (1) Hyperglycemia ICD Codes: R73.9 - Hyperglycemia SNOMED: 92061746 (2) Altered mental status ICD Codes: R41.82 - Altered mental status SNOMED: 112273856 Qualifiers: Qualified Codes: R41.82 - Altered mental status, unspecified (3) Sepsis ICD Codes: A41.9 - Sepsis SNOMED: 10024958 (4) Altered mental status ICD Codes: R41.82 - Altered mental status, unspecified SNOMED: 139524929 Qualifiers: Qualified Codes: R41.0 - Disorientation, unspecified (5) Stroke ICD Codes: I63.9 - Stroke SNOMED: 597304849 Qualifiers: (6) Hypothyroid ICD Codes: E03.9 - Hypothyroid SNOMED: 41132230 Qualifiers: Qualified Codes: E03.9 - Hypothyroidism, unspecified (7) Decubitus ulcer, stage 4 with infection ICD Codes: L89.94 - Pressure ulcer of unspecified site, stage 4 SNOMED: 2064318, 663318801 Status: stable, progressing Assessment/Plan wound care/dressing changes per surgery abx per id follow up urine cultures monitor bs antiplt rx dvt/stress ulcer prophylaxis frequent turning encourage pos. pain rx as needed ?dc planning. senior case manager looking for bed Subjective ROS Limited/Unobtainable: No Constitutional: Reports: malaise, weakness HEENT: Reports: no symptoms Cardiovascular: Reports: no symptoms Respiratory: Reports: no symptoms Gastrointestinal/Abdominal: Reports: no symptoms Genitourinary: Reports: no symptoms Neurologic/Psychiatric: Reports: pre-existing deficit Endocrine: Reports: no symptoms Hematologic/Lymphatic: Reports: easy bleeding Allergies: Coded Allergies: HYDROMORPHONE (Verified Allergy, Unknown, 09/21/14) MORPHINE (Unverified Allergy, Unknown, 04/27/16) All Systems: reviewed and negative except above Subjective s/p uncomplicated flap revision. denies pain. denies sob. Ucx negative so far. eating well. Objective Last 24 Hour Vital Signs Date Time Temp Pulse Resp B/P Pulse Ox O2 Delivery O2 Flow Rate FiO2 05/08/16 08:44 75 161/77 05/08/16 08:44 161/77 05/08/16 08:43 75 161/77 05/08/16 08:11 97.2 75 18 161/77 96 Room Air 05/08/16 04:10 97.9 72 20 147/64 96 Room Air 05/08/16 00:00 97.3 73 20 155/67 96 Room Air 05/07/16 20:48 69 149/68 05/07/16 20:00 97.7 69 21 149/68 97 Room Air 05/07/16 19:30 95 Room Air 21 05/07/16 19:30 Room Air 21 05/07/16 16:00 97.6 63 20 95 Room Air 68 05/07/16 12:00 96.8 66 18 130/59 95 Room Air Intake and Output 05/07/16 05/08/16 19:00 07:00 Intake Total 1160 ml 360 ml Output Total 500 ml 1025 ml Balance 660 ml -665 ml Intake Oral 960 ml 360 ml IV Total 200 ml Output Urine Total 500 ml 1025 ml Height (Feet): 5 Height (Inches): 6.00 Weight (Pounds): 150 Objective General Appearance: WD/WN, alert Neck: supple Cardiovascular: regular rhythm Respiratory/Chest: chest wall non-tender, lungs clear, normal breath sounds, no respiratory distress, no accessory muscle use Abdomen: normal bowel sounds, non tender, soft, no organomegaly, no mass Edema: no edema noted Arm (L), no edema noted Arm (R), no edema noted Leg (L), no edema noted Leg (R), no edema noted Pedal (L), no edema noted Pedal (R), no edema noted Generalized Objective bandage over sacrum ISIDORO BYRNE May 08, 2016 11:49
[2016-05-08 11:56] VITALS: BP 142/73
[2016-05-08 16:00] VITALS: BP 144/63
[2016-05-08 20:00] VITALS: BP 147/91
[2016-05-08] MEDS: Atorvastatin 20mg tab ORAL SCH (20:41)
[2016-05-09 00:24] VITALS: BP 138/69
--- NOTE | 2016-05-09 01:57 | Progress Note ---
DATE: 05/08/2016 CARDIOLOGY PROGRESS NOTE SUBJECTIVE: The patient has no new complaints. She continues with wound care. Antibiotics are on board as well. The patient remains on antiplatelet therapy. Lipid panel has been checked. She is on thyroid replacement. OBJECTIVE: VITAL SIGNS: Blood pressure 147/71, pulse 73, and respirations 20. NECK: Supple. LUNGS: Clear. CARDIAC: Regular. Normal S1 and S2. ABDOMEN: Soft. No edema. Wound flap in place. ASSESSMENT AND PLAN: Continue current antihypertensive. May need to titrate dosing if blood pressure elevations continue. Low-dose beta-mine now tolerated with no bradycardia. Hypothyroidism, on replacement therapy. We will recheck TSH in several weeks. Titrate diabetic regimen. Encourage oral intake and monitor prealbumin level with wound care in place. Darius Duran M.D. DR: Rafael JOB#: [id number] CC:
[2016-05-09 04:15] VITALS: BP 142/68
[2016-05-09] MEDS: Lactobacillus-GG tablet ORAL SCH ×3 (06:14→21:29)
[2016-05-09] MEDS: Levothyroxine 25mcg tab ORAL SCH (06:16)
[2016-05-09] MEDS: NovoLOG Insulin Flexpen SUBQ SCH ×4 (06:17→20:50)
[2016-05-09 08:10] VITALS: BP 134/76
[2016-05-09] MEDS: Aggrenox Cap ORAL SCH ×2 (08:47→20:50)
[2016-05-09] MEDS: metFORMIN 500mg tab ORAL SCH ×2 (08:47→17:50)
[2016-05-09] MEDS: Memantine 10mg tab ORAL SCH (08:47)
[2016-05-09] MEDS: Lisinopril 20mg tab ORAL SCH (08:47)
[2016-05-09] MEDS: Heparin 5000 units/ml inj SUBQ SCH ×2 (08:49→20:51)
[2016-05-09] MEDS: Neosporin Oint 15gm TOPIC SCH ×2 (09:02→17:52)
--- NOTE | 2016-05-09 11:17 | Infectious Diseases Prog Note ---
"Assessment/Plan Assessment/Plan antibiotics : none A 1. 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 CVA 5. DM 6. HTN P 1. observe off antibiotics Subjective ROS Limited/Unobtainable: Yes Allergies: Coded Allergies: HYDROMORPHONE (Verified Allergy, Unknown, 09/21/14) MORPHINE (Unverified Allergy, Unknown, 04/27/16) Objective Vital Signs Last 24 Hour Vital Signs Date Time Temp Pulse Resp B/P Pulse Ox O2 Delivery O2 Flow Rate FiO2 05/09/16 08:47 62 134/76 05/09/16 08:47 134/76 05/09/16 08:47 62 134/76 05/09/16 08:10 97.3 62 18 134/76 94 Room Air 05/09/16 07:54 Room Air 21 05/09/16 07:50 94 Room Air 21 05/09/16 04:15 98.0 74 20 142/68 99 Room Air 05/09/16 00:24 97.0 78 20 138/69 94 Room Air 05/08/16 20:42 73 147/71 05/08/16 20:00 98.2 73 20 147/91 100 Room Air 05/08/16 19:42 Room Air 21 05/08/16 19:41 92 Room Air 21 05/08/16 16:00 97.2 67 20 144/63 96 Room Air 05/08/16 11:56 97.1 68 18 142/73 95 Room Air Height (Feet): 5 Height (Inches): 6.00 Weight (Pounds): 150 Respiratory/Chest: lungs clear Cardiovascular: normal rate, regular rhythm, no gallop/murmur Abdomen: soft, non tender Extremities: no edema ALESSIO KRISHNAMURTHY May 09, 2016 11:17"
[2016-05-09 12:00] VITALS: BP 172/66
[2016-05-09 16:00] VITALS: BP 142/69
--- NOTE | 2016-05-09 16:07 | General Progress Note ---
Assessment/Plan Problem List: (1) Hyperglycemia ICD Codes: R73.9 - Hyperglycemia SNOMED: 74993217 (2) Altered mental status ICD Codes: R41.82 - Altered mental status SNOMED: 430813197 Qualifiers: Qualified Codes: R41.82 - Altered mental status, unspecified (3) Sepsis ICD Codes: A41.9 - Sepsis SNOMED: 31197599 (4) Altered mental status ICD Codes: R41.82 - Altered mental status, unspecified SNOMED: 743837856 Qualifiers: Qualified Codes: R41.0 - Disorientation, unspecified (5) Stroke ICD Codes: I63.9 - Stroke SNOMED: 838148211 Qualifiers: (6) Hypothyroid ICD Codes: E03.9 - Hypothyroid SNOMED: 99060053 Qualifiers: Qualified Codes: E03.9 - Hypothyroidism, unspecified (7) Decubitus ulcer, stage 4 with infection ICD Codes: L89.94 - Pressure ulcer of unspecified site, stage 4 SNOMED: 7739801, 854106273 Assessment/Plan wound care/dressing changes per surgery abx per id follow up urine cultures monitor bs antiplt rx dvt/stress ulcer prophylaxis frequent turning encourage pos. pain rx as needed ?dc planning. 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 Subjective ROS Limited/Unobtainable: Yes Constitutional: Reports: malaise, weakness HEENT: Reports: no symptoms Cardiovascular: Reports: no symptoms Respiratory: Reports: no symptoms Gastrointestinal/Abdominal: Reports: no symptoms Genitourinary: Reports: no symptoms Neurologic/Psychiatric: Reports: pre-existing deficit Endocrine: Reports: no symptoms Hematologic/Lymphatic: Reports: no symptoms Allergies: Coded Allergies: HYDROMORPHONE (Verified Allergy, Unknown, 09/21/14) MORPHINE (Unverified Allergy, Unknown, 04/27/16) All Systems: reviewed and negative except above Subjective s/p uncomplicated flap revision. denies pain. denies sob. stilll looking for accepting snf Objective Last 24 Hour Vital Signs Date Time Temp Pulse Resp B/P Pulse Ox O2 Delivery O2 Flow Rate FiO2 05/09/16 12:00 97.0 69 18 172/66 97 Room Air 05/09/16 08:47 62 134/76 05/09/16 08:47 134/76 05/09/16 08:47 62 134/76 05/09/16 08:10 97.3 62 18 134/76 94 Room Air 05/09/16 07:54 Room Air 21 05/09/16 07:50 94 Room Air 21 05/09/16 04:15 98.0 74 20 142/68 99 Room Air 05/09/16 00:24 97.0 78 20 138/69 94 Room Air 05/08/16 20:42 73 147/71 05/08/16 20:00 98.2 73 20 147/91 100 Room Air 05/08/16 19:42 Room Air 21 05/08/16 19:41 92 Room Air 21 05/08/16 16:00 97.2 67 20 144/63 96 Room Air Intake and Output 05/08/16 05/09/16 19:00 07:00 Intake Total 480 ml Output Total 1000 ml 650 ml Balance -520 ml -650 ml Intake Oral 480 ml Output Urine Total 1000 ml 650 ml Height (Feet): 5 Height (Inches): 6.00 Weight (Pounds): 150 Objective General Appearance: WD/WN, alert Neck: supple Cardiovascular: regular rhythm Respiratory/Chest: chest wall non-tender, lungs clear, normal breath sounds, no respiratory distress, no accessory muscle use Abdomen: normal bowel sounds, non tender, soft, no organomegaly, no mass Edema: no edema noted Arm (L), no edema noted Arm (R), no edema noted Leg (L), no edema noted Leg (R), no edema noted Pedal (L), no edema noted Pedal (R), no edema noted Generalized Objective bandage over sacrum ISIDORO BYRNE May 09, 2016 16:07
[2016-05-09 19:54] VITALS: BP 145/71
[2016-05-09] MEDS: Atorvastatin 20mg tab ORAL SCH (20:49)
[2016-05-10] VITALS (7 sets, daily range): BP systolic 126–164; BP diastolic 58–77
--- NOTE | 2016-05-10 01:57 | Progress Note ---
DATE: 05/09/2016 CARDIOLOGY PROGRESS NOTE SUBJECTIVE: The patient is without any distress. Afebrile. OBJECTIVE: VITAL SIGNS: Blood pressure elevated at 172/66, heart rate 69, and respiratory rate 18. NECK: Supple. LUNGS: Clear. CARDIAC: Regular. Normal S1 and S2. ABDOMEN: Soft. EXTREMITIES: No edema. Wound site has dressing in place. IMPRESSION: 1. Status post flap revision. 2. Hypomagnesemia. 3. Hypertensive heart disease with rising blood pressure trend. 4. Chronic diastolic congestive heart failure with slight elevation of pro-natriuretic peptide assay. 5. Hypothyroidism, on replacement therapy. PLAN: 1. Magnesium replacement. 2. Titrate antihypertensives. 3. Antibiotic and wound care. 4. DVT prophylaxis. 5. Discharge planning. Darius Duran M.D. DR: SARAI JOB#: [id number] CC:
[2016-05-10] MEDS: Levothyroxine 25mcg tab ORAL SCH (05:40)
[2016-05-10] MEDS: Lactobacillus-GG tablet ORAL SCH ×3 (05:40→22:44)
[2016-05-10] MEDS: NovoLOG Insulin Flexpen SUBQ SCH ×4 (06:15→20:11)
[2016-05-10] MEDS: Memantine 10mg tab ORAL SCH (08:38)
[2016-05-10] MEDS: Lisinopril 20mg tab ORAL SCH (08:38)
[2016-05-10] MEDS: Aggrenox Cap ORAL SCH ×2 (08:38→20:43)
[2016-05-10] MEDS: metFORMIN 500mg tab ORAL SCH ×2 (08:39→17:24)
[2016-05-10] MEDS: Neosporin Oint 15gm TOPIC SCH ×2 (08:40→17:27)
[2016-05-10] MEDS: Heparin 5000 units/ml inj SUBQ SCH ×2 (08:40→20:43)
--- NOTE | 2016-05-10 10:21 | General Progress Note ---
Assessment/Plan Problem List: (1) Hyperglycemia ICD Codes: R73.9 - Hyperglycemia SNOMED: 47947187 (2) Altered mental status ICD Codes: R41.82 - Altered mental status SNOMED: 950362125 Qualifiers: Qualified Codes: R41.82 - Altered mental status, unspecified (3) Sepsis ICD Codes: A41.9 - Sepsis SNOMED: 53791893 (4) Altered mental status ICD Codes: R41.82 - Altered mental status, unspecified SNOMED: 037062859 Qualifiers: Qualified Codes: R41.0 - Disorientation, unspecified (5) Stroke ICD Codes: I63.9 - Stroke SNOMED: 689692865 Qualifiers: (6) Hypothyroid ICD Codes: E03.9 - Hypothyroid SNOMED: 40165992 Qualifiers: Qualified Codes: E03.9 - Hypothyroidism, unspecified (7) Decubitus ulcer, stage 4 with infection ICD Codes: L89.94 - Pressure ulcer of unspecified site, stage 4 SNOMED: 3724467, 420124285 Status: stable, progressing Assessment/Plan wound care/dressing changes per surgery abx per id follow up urine cultures monitor bs antiplt rx dvt/stress ulcer prophylaxis frequent turning encourage pos. pain rx as needed ?dc planning. immigration case manager looking for bed Subjective ROS Limited/Unobtainable: No Constitutional: Reports: malaise, weakness HEENT: Reports: no symptoms Cardiovascular: Reports: no symptoms Respiratory: Reports: no symptoms Gastrointestinal/Abdominal: Reports: no symptoms Genitourinary: Reports: no symptoms Neurologic/Psychiatric: Reports: pre-existing deficit Endocrine: Reports: no symptoms Hematologic/Lymphatic: Reports: no symptoms Allergies: Coded Allergies: HYDROMORPHONE (Verified Allergy, Unknown, 09/21/14) MORPHINE (Unverified Allergy, Unknown, 04/27/16) All Systems: reviewed and negative except above Subjective s/p uncomplicated flap revision. denies pain. denies sob. stilll looking for accepting snf Objective Last 24 Hour Vital Signs Date Time Temp Pulse Resp B/P Pulse Ox O2 Delivery O2 Flow Rate FiO2 05/10/16 08:39 72 164/71 05/10/16 08:39 72 164/71 05/10/16 08:38 164/71 05/10/16 08:22 98.0 72 18 164/71 96 Room Air 05/10/16 04:00 97.9 71 20 126/73 96 Room Air 05/10/16 00:00 98.2 78 20 128/70 96 Room Air 05/09/16 20:50 81 145/71 05/09/16 20:00 Room Air 21 05/09/16 20:00 95 Room Air 21 05/09/16 19:54 97.1 81 18 145/71 96 Room Air 05/09/16 16:00 97.0 75 18 142/69 96 Room Air 05/09/16 12:00 97.0 69 18 172/66 97 Room Air Intake and Output 05/09/16 05/10/16 19:00 07:00 Intake Total 600 ml 400 ml Output Total 1000 ml 1050 ml Balance -400 ml -650 ml Intake Oral 600 ml 400 ml Output Urine Total 1000 ml 1050 ml Height (Feet): 5 Height (Inches): 6.00 Weight (Pounds): 150 Objective General Appearance: WD/WN, alert Neck: supple Cardiovascular: regular rhythm Respiratory/Chest: chest wall non-tender, lungs clear, normal breath sounds, no respiratory distress, no accessory muscle use Abdomen: normal bowel sounds, non tender, soft, no organomegaly, no mass Edema: no edema noted Arm (L), no edema noted Arm (R), no edema noted Leg (L), no edema noted Leg (R), no edema noted Pedal (L), no edema noted Pedal (R), no edema noted Generalized Objective bandage over sacrum ISIDORO BYRNE May 10, 2016 10:21
--- NOTE | 2016-05-10 15:05 | Infectious Diseases Prog Note ---
Assessment/Plan Assessment/Plan A; infected sacral ulcer Wound dehiscence DM HPN MRSA & VRE colonization P: observe off antibiotic Subjective ROS Limited/Unobtainable: Yes Allergies: Coded Allergies: HYDROMORPHONE (Verified Allergy, Unknown, 09/21/14) MORPHINE (Unverified Allergy, Unknown, 04/27/16) Objective Vital Signs Last 24 Hour Vital Signs Date Time Temp Pulse Resp B/P Pulse Ox O2 Delivery O2 Flow Rate FiO2 05/10/16 11:39 98.4 64 18 146/58 97 Room Air 05/10/16 08:39 72 164/71 05/10/16 08:39 72 164/71 05/10/16 08:38 164/71 05/10/16 08:22 98.0 72 18 164/71 96 Room Air 05/10/16 04:00 97.9 71 20 126/73 96 Room Air 05/10/16 00:00 98.2 78 20 128/70 96 Room Air 05/09/16 20:50 81 145/71 05/09/16 20:00 Room Air 21 05/09/16 20:00 95 Room Air 21 05/09/16 19:54 97.1 81 18 145/71 96 Room Air 05/09/16 16:00 97.0 75 18 142/69 96 Room Air Height (Feet): 5 Height (Inches): 6.00 Weight (Pounds): 150 General Appearance: no acute distress HEENT: mucous membranes moist Respiratory/Chest: lungs clear Cardiovascular: normal rate Abdomen: soft, non tender Extremities: no edema Skin: ulcers Neurologic/Psychiatric: disoriented Current Medications Medications (Trade) Dose Ordered Sig/Rupert Route PRN Reason Start Time Stop Time Status Last Admin Dose Admin Acetaminophen (Tylenol) 650 mg Q6H PRN ORAL Mild Pain/Temp > 100.5 04/27/16 19:30 05/27/16 19:29 Amlodipine Besylate (Norvasc) 5 mg Q12HR ORAL 04/27/16 21:00 05/27/16 20:59 05/10/16 08:39 Atorvastatin Calcium (Lipitor) 20 mg BEDTIME ORAL 04/27/16 21:00 05/27/16 20:59 05/09/16 20:49 Dextrose (Dextrose 50%) STAT PRN IV Hypoglycemia 04/27/16 20:00 05/27/16 19:59 Dipyridamole/ Aspirin (Aggrenox) 1 cap Q12HR ORAL 04/27/16 21:00 05/27/16 20:59 05/10/16 08:38 Ferrous Sulfate (Feosol) 325 mg THREE TIMES A DAY ORAL 04/28/16 09:00 05/28/16 08:59 05/10/16 13:17 Heparin Sodium (Porcine) (Heparin 5000 units/ml) 5,000 units EVERY 12 HOURS SUBQ 04/27/16 21:00 05/27/16 20:59 05/10/16 08:40 Insulin Aspart (NovoLOG) BEFORE MEALS AND HS SUBQ 04/27/16 21:00 05/27/16 20:59 05/09/16 20:50 Lactobacillus Acidophilus (Culturelle) 1 tab Q8HR ORAL 04/27/16 22:00 05/27/16 21:59 05/10/16 13:17 Levothyroxine Sodium (Synthroid) 25 mcg DAILY@0630 ORAL 05/01/16 06:30 05/31/16 06:29 05/10/16 05:40 Levothyroxine Sodium (Synthroid) 150 mcg DAILY@0630 ORAL 05/01/16 06:30 05/31/16 06:29 05/10/16 05:40 Lisinopril (Prinivil) 40 mg DAILY ORAL 05/02/16 09:00 06/01/16 08:59 05/10/16 08:38 Memantine (Namenda) 10 mg DAILY ORAL 04/28/16 09:00 05/28/16 08:59 05/10/16 08:38 Metformin HCl (Glucophage) 1,000 mg BID ORAL 04/28/16 09:00 05/28/16 08:59 05/10/16 08:39 Metoprolol Succinate (Toprol XL) 12.5 mg DAILY ORAL 05/06/16 09:00 06/05/16 08:59 05/10/16 08:39 Neomycin/ Polymyxin/ Bacitracin (Neosporin Oint 15gm) 1 applic TWICE A DAY TOPIC 05/02/16 18:00 06/01/16 17:59 05/10/16 08:40 EFRAIN GARCIA May 10, 2016 15:05
[2016-05-10] MEDS: Atorvastatin 20mg tab ORAL SCH (20:43)
[2016-05-11 04:00] VITALS: BP 159/80
[2016-05-11] MEDS: NovoLOG Insulin Flexpen SUBQ SCH ×4 (05:43→21:50)
[2016-05-11] MEDS: Lactobacillus-GG tablet ORAL SCH ×3 (05:43→21:48)
[2016-05-11] MEDS: Levothyroxine 25mcg tab ORAL SCH (05:43)
--- NOTE | 2016-05-11 07:48 | General Progress Note ---
Assessment/Plan Problem List: (1) Hyperglycemia ICD Codes: R73.9 - Hyperglycemia SNOMED: 38600314 (2) Altered mental status ICD Codes: R41.82 - Altered mental status SNOMED: 946730887 Qualifiers: Qualified Codes: R41.82 - Altered mental status, unspecified (3) Sepsis ICD Codes: A41.9 - Sepsis SNOMED: 81748972 (4) Altered mental status ICD Codes: R41.82 - Altered mental status, unspecified SNOMED: 749652949 Qualifiers: Qualified Codes: R41.0 - Disorientation, unspecified (5) Stroke ICD Codes: I63.9 - Stroke SNOMED: 924519221 Qualifiers: (6) Hypothyroid ICD Codes: E03.9 - Hypothyroid SNOMED: 68082703 Qualifiers: Qualified Codes: E03.9 - Hypothyroidism, unspecified (7) Decubitus ulcer, stage 4 with infection ICD Codes: L89.94 - Pressure ulcer of unspecified site, stage 4 SNOMED: 6521748, 762165798 Status: stable, progressing Assessment/Plan wound care/dressing changes per surgery abx per id follow up urine cultures monitor bs antiplt rx dvt/stress ulcer prophylaxis frequent turning encourage pos. pain rx as needed check labs in am ?dc planning. 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 Subjective ROS Limited/Unobtainable: No Constitutional: Reports: malaise, weakness HEENT: Reports: no symptoms Cardiovascular: Reports: no symptoms Respiratory: Reports: no symptoms Gastrointestinal/Abdominal: Reports: no symptoms Genitourinary: Reports: no symptoms Neurologic/Psychiatric: Reports: pre-existing deficit Endocrine: Reports: no symptoms Hematologic/Lymphatic: Reports: no symptoms Allergies: Coded Allergies: HYDROMORPHONE (Verified Allergy, Unknown, 09/21/14) MORPHINE (Unverified Allergy, Unknown, 04/27/16) All Systems: reviewed and negative except above Subjective s/p uncomplicated flap revision. denies pain. denies sob. stilll looking for accepting snf. eating well. Objective Last 24 Hour Vital Signs Date Time Temp Pulse Resp B/P Pulse Ox O2 Delivery O2 Flow Rate FiO2 05/11/16 04:00 97.5 78 18 159/80 97 Room Air 05/10/16 23:00 97.5 71 18 154/77 96 Room Air 1/18/17 20:43 70 147/71 05/10/16 20:00 97.7 70 18 147/71 97 Room Air 05/10/16 19:00 97 Room Air 05/10/16 19:00 Room Air 05/10/16 16:17 98.0 75 18 140/60 97 Room Air 05/10/16 11:39 98.4 64 18 146/58 97 Room Air 05/10/16 08:39 72 164/71 05/10/16 08:39 72 164/71 05/10/16 08:38 164/71 05/10/16 08:22 98.0 72 18 164/71 96 Room Air Intake and Output 05/10/16 05/11/16 19:00 07:00 Intake Total 720 ml 370 ml Output Total 1000 ml 885 ml Balance -280 ml -515 ml Intake Oral 720 ml 370 ml Output Urine Total 1000 ml 885 ml Height (Feet): 5 Height (Inches): 6.00 Weight (Pounds): 150 Objective General Appearance: WD/WN, alert Neck: supple Cardiovascular: regular rhythm Respiratory/Chest: chest wall non-tender, lungs clear, normal breath sounds, no respiratory distress, no accessory muscle use Abdomen: normal bowel sounds, non tender, soft, no organomegaly, no mass Edema: no edema noted Arm (L), no edema noted Arm (R), no edema noted Leg (L), no edema noted Leg (R), no edema noted Pedal (L), no edema noted Pedal (R), no edema noted Generalized Objective bandage over sacrum ISIDORO BYRNE May 11, 2016 07:48
[2016-05-11 08:05] VITALS: BP 163/85
[2016-05-11] MEDS: Heparin 5000 units/ml inj SUBQ SCH ×2 (08:16→21:49)
[2016-05-11] MEDS: Aggrenox Cap ORAL SCH ×2 (08:17→21:47)
[2016-05-11] MEDS: metFORMIN 500mg tab ORAL SCH ×2 (08:17→17:44)
[2016-05-11] MEDS: Memantine 10mg tab ORAL SCH (08:18)
[2016-05-11] MEDS: Lisinopril 20mg tab ORAL SCH (08:19)
[2016-05-11] MEDS: Neosporin Oint 15gm TOPIC SCH ×2 (10:12→17:44)
[2016-05-11 11:58] VITALS: BP 144/57
--- NOTE | 2016-05-11 15:12 | Infectious Diseases Prog Note ---
Assessment/Plan Assessment/Plan A; infected sacral ulcer Wound dehiscence DM HPN MRSA & VRE colonization P: observe off antibiotic Subjective ROS Limited/Unobtainable: Yes Allergies: Coded Allergies: HYDROMORPHONE (Verified Allergy, Unknown, 09/21/14) MORPHINE (Unverified Allergy, Unknown, 04/27/16) Objective Vital Signs Last 24 Hour Vital Signs Date Time Temp Pulse Resp B/P Pulse Ox O2 Delivery O2 Flow Rate FiO2 05/11/16 11:58 98.4 68 20 144/57 96 Room Air 05/11/16 08:19 70 163/85 05/11/16 08:19 163/85 05/11/16 08:18 70 163/85 05/11/16 08:05 98.2 70 20 163/85 95 Room Air 05/11/16 04:00 97.5 78 18 159/80 97 Room Air 05/10/16 23:00 97.5 71 18 154/77 96 Room Air 05/10/16 20:43 70 147/71 05/10/16 20:00 97.7 70 18 147/71 97 Room Air 05/10/16 19:00 97 Room Air 05/10/16 19:00 Room Air 05/10/16 16:17 98.0 75 18 140/60 97 Room Air Height (Feet): 5 Height (Inches): 6.00 Weight (Pounds): 150 General Appearance: no acute distress HEENT: mucous membranes moist Respiratory/Chest: lungs clear Cardiovascular: normal rate Abdomen: soft, non tender Extremities: no edema Skin: ulcers Neurologic/Psychiatric: disoriented Current Medications Medications (Trade) Dose Ordered Sig/Rupert Route PRN Reason Start Time Stop Time Status Last Admin Dose Admin Acetaminophen (Tylenol) 650 mg Q6H PRN ORAL Mild Pain/Temp > 100.5 04/27/16 19:30 05/27/16 19:29 Amlodipine Besylate (Norvasc) 5 mg Q12HR ORAL 04/27/16 21:00 05/27/16 20:59 05/11/16 08:18 Atorvastatin Calcium (Lipitor) 20 mg BEDTIME ORAL 04/27/16 21:00 05/27/16 20:59 05/10/16 20:43 Dextrose (Dextrose 50%) STAT PRN IV Hypoglycemia 04/27/16 20:00 05/27/16 19:59 Dipyridamole/ Aspirin (Aggrenox) 1 cap Q12HR ORAL 04/27/16 21:00 05/27/16 20:59 05/11/16 08:17 Ferrous Sulfate (Feosol) 325 mg THREE TIMES A DAY ORAL 04/28/16 09:00 05/28/16 08:59 05/11/16 13:52 Heparin Sodium (Porcine) (Heparin 5000 units/ml) 5,000 units EVERY 12 HOURS SUBQ 04/27/16 21:00 05/27/16 20:59 05/11/16 08:16 Insulin Aspart (NovoLOG) BEFORE MEALS AND HS SUBQ 04/27/16 21:00 05/27/16 20:59 05/10/16 17:25 Lactobacillus Acidophilus (Culturelle) 1 tab Q8HR ORAL 04/27/16 22:00 05/27/16 21:59 05/11/16 13:52 Levothyroxine Sodium (Synthroid) 25 mcg DAILY@0630 ORAL 05/01/16 06:30 05/31/16 06:29 05/11/16 05:43 Levothyroxine Sodium (Synthroid) 150 mcg DAILY@0630 ORAL 05/01/16 06:30 05/31/16 06:29 05/11/16 05:43 Lisinopril (Prinivil) 40 mg DAILY ORAL 05/02/16 09:00 06/01/16 08:59 05/11/16 08:19 Memantine (Namenda) 10 mg DAILY ORAL 04/28/16 09:00 05/28/16 08:59 05/11/16 08:18 Metformin HCl (Glucophage) 1,000 mg BID ORAL 04/28/16 09:00 05/28/16 08:59 05/11/16 08:17 Metoprolol Succinate (Toprol XL) 12.5 mg DAILY ORAL 05/06/16 09:00 06/05/16 08:59 05/11/16 08:19 Neomycin/ Polymyxin/ Bacitracin (Neosporin Oint 15gm) 1 applic TWICE A DAY TOPIC 05/02/16 18:00 06/01/16 17:59 05/11/16 10:12 EFRAIN GARCIA May 11, 2016 15:12
[2016-05-11 16:00] VITALS: BP 166/81
[2016-05-11 20:00] VITALS: BP 153/82
[2016-05-11] MEDS: Atorvastatin 20mg tab ORAL SCH (21:48)
[2016-05-12 00:03] VITALS: BP 144/74
--- NOTE | 2016-05-12 00:17 | Progress Note ---
DATE: 05/10/2016 CARDIOLOGY PROGRESS NOTE SUBJECTIVE: The patient remains on wound care protocol. She continues with antibiotics. OBJECTIVE: VITAL SIGNS: Blood pressure 164/71 earlier 126/73, heart rate 71, respiratory rate 20 and the patient is afebrile. NECK: Supple. LUNGS: Clear. CARDIAC: Regular. Normal S1 and S2 with a fourth heart sound. ABDOMEN: Soft. No edema. Wound is dressed. IMPRESSION AND PLAN: 1. Hypertensive heart disease. Blood pressure trend elevated at times, but overall stable. 2. Bradycardia, resolved, off beta-mine. 3. Type 2 diabetes mellitus with improving control. 4. Hypomagnesemia status post replacement therapy. 5. Multi-infarct cerebrovascular disease with dementia. 6. Status post wound flap revision, on therapy. Plan of care in place. 7. Continue to monitor for significant blood pressure elevations requiring further titration of drugs. Darius Duran M.D. DR: CARLOS JOB#: [id number] CC:
--- NOTE | 2016-05-12 01:18 | Progress Note ---
DATE: 05/11/2016 CARDIOLOGY PROGRESS NOTE SUBJECTIVE: The patient has no new complaints. OBJECTIVE: VITAL SIGNS: Blood pressure 159/80, pulse 78 and respiratory rate 18. CHEST: Clear CARDIAC: Regular. Normal S1 and S2. ABDOMEN: Soft. EXTREMITIES: No edema. IMPRESSION: Blood pressure range continues to slowly creep up. Sinus rhythm with no recurring bradycardias noted. No signs of congestive heart failure. PLAN: We will start low-dose carvedilol for additional blood pressure control as the beta-mine with lesser effect on sinus node. Bradycardia may be less of a concern. Darius Duran M.D. DR: CARLOS JOB#: [id number] CC:
[2016-05-12 04:33] VITALS: BP 159/86
[2016-05-12] MEDS: NovoLOG Insulin Flexpen SUBQ SCH ×4 (06:30→20:41)
[2016-05-12] MEDS: Lactobacillus-GG tablet ORAL SCH ×3 (06:34→21:10)
[2016-05-12] MEDS: Levothyroxine 25mcg tab ORAL SCH (06:34)
[2016-05-12 07:19] LABS: MEAN CORPUSCULAR HEMOGLOBIN 25.5 PG (27.0-31.0); MEAN CORPUSCULAR HGB CONC 31.7 G/DL (32.0-36.0); MEAN CORPUSCULAR VOLUME 80 FL (80-99); RED BLOOD COUNT 4.17 M/UL (4.20-5.40); WHITE BLOOD COUNT 13.4 K/UL (4.8-10.8)
--- NOTE | 2016-05-12 07:40 | General Progress Note ---
Assessment/Plan Problem List: (1) Hyperglycemia ICD Codes: R73.9 - Hyperglycemia SNOMED: 20105954 (2) Altered mental status ICD Codes: R41.82 - Altered mental status SNOMED: 986880808 Qualifiers: Qualified Codes: R41.82 - Altered mental status, unspecified (3) Sepsis ICD Codes: A41.9 - Sepsis SNOMED: 20490573 (4) Altered mental status ICD Codes: R41.82 - Altered mental status, unspecified SNOMED: 821029062 Qualifiers: Qualified Codes: R41.0 - Disorientation, unspecified (5) Stroke ICD Codes: I63.9 - Stroke SNOMED: 525286617 Qualifiers: (6) Hypothyroid ICD Codes: E03.9 - Hypothyroid SNOMED: 41045534 Qualifiers: Qualified Codes: E03.9 - Hypothyroidism, unspecified (7) Decubitus ulcer, stage 4 with infection ICD Codes: L89.94 - Pressure ulcer of unspecified site, stage 4 SNOMED: 4938859, 697733980 Status: stable, progressing Assessment/Plan wound care/dressing changes per surgery abx per id follow up urine cultures monitor bs antiplt rx dvt/stress ulcer prophylaxis frequent turning encourage pos. pain rx as needed follow up pending labs ?dc planning. patient case coordinator looking for bed Subjective ROS Limited/Unobtainable: No Constitutional: Reports: weakness HEENT: Reports: no symptoms Cardiovascular: Reports: no symptoms Respiratory: Reports: no symptoms Gastrointestinal/Abdominal: Reports: no symptoms Genitourinary: Reports: no symptoms Neurologic/Psychiatric: Reports: pre-existing deficit Endocrine: Reports: no symptoms Hematologic/Lymphatic: Reports: no symptoms Allergies: Coded Allergies: HYDROMORPHONE (Verified Allergy, Unknown, 09/21/14) MORPHINE (Unverified Allergy, Unknown, 04/27/16) All Systems: reviewed and negative except above Subjective s/p uncomplicated flap revision. denies pain. denies sob. stilll looking for accepting snf. eating well.flap intact Objective Last 24 Hour Vital Signs Date Time Temp Pulse Resp B/P Pulse Ox O2 Delivery O2 Flow Rate FiO2 05/12/16 04:33 98.1 74 19 159/86 97 Room Air 05/12/16 00:03 97.3 70 18 144/74 96 Room Air 05/11/16 21:48 76 153/82 05/11/16 20:00 97.5 76 20 153/82 95 Room Air 05/11/16 19:00 95 Room Air 05/11/16 19:00 Room Air 05/11/16 16:00 97.7 70 20 166/81 94 Room Air 05/11/16 11:58 98.4 68 20 144/57 96 Room Air 05/11/16 08:19 70 163/85 05/11/16 08:19 163/85 05/11/16 08:18 70 163/85 05/11/16 08:05 98.2 70 20 163/85 95 Room Air Intake and Output 05/11/16 05/12/16 19:00 07:00 Intake Total 360 ml 240 ml Output Total 700 ml 400 ml Balance -340 ml -160 ml Intake Oral 360 ml 240 ml Output Urine Total 700 ml 400 ml # Bowel Movements 1 Laboratory Tests 05/12/16 05:05: White Blood Count [Pending], Red Blood Count [Pending], Hemoglobin [Pending], Hematocrit [Pending], Mean Corpuscular Volume [Pending], Mean Corpuscular Hemoglobin [Pending], Mean Corpuscular Hemoglobin Concent [Pending], Red Cell Distribution Width [Pending], Platelet Count [Pending], Mean Platelet Volume [ Pending], Neutrophils (%) (Auto) [Pending], Lymphocytes (%) (Auto) [Pending], Monocytes (%) (Auto) [Pending], Eosinophils (%) (Auto) [Pending], Basophils (%) (Auto) [Pending], Sodium Level [Pending], Potassium Level [Pending], Chloride Level [Pending], Carbon Dioxide Level [Pending], Blood Urea Nitrogen [Pending], Creatinine [Pending], Estimat Glomerular Filtration Rate [Pending], Glucose Level [Pending], Calcium Level [Pending], Total Bilirubin [Pending], Aspartate Amino Transf (AST/SGOT) [Pending], Alanine Aminotransferase (ALT/SGPT) [Pending] , Alkaline Phosphatase [Pending], Total Protein [Pending], Albumin [Pending], Globulin [Pending] Height (Feet): 5 Height (Inches): 6.00 Weight (Pounds): 150 Objective General Appearance: WD/WN, alert Neck: supple Cardiovascular: regular rhythm Respiratory/Chest: chest wall non-tender, lungs clear, normal breath sounds, no respiratory distress, no accessory muscle use Abdomen: normal bowel sounds, non tender, soft, no organomegaly, no mass Edema: no edema noted Arm (L), no edema noted Arm (R), no edema noted Leg (L), no edema noted Leg (R), no edema noted Pedal (L), no edema noted Pedal (R), no edema noted Generalized Objective bandage over sacrum ISIDORO BYRNE May 12, 2016 07:40
[2016-05-12 07:42] LABS: ALANINE AMINOTRANSFERASE 11 U/L (3-33); ALBUMIN/GLOBULIN RATIO 0.9 (1.0-2.7); ANION GAP 16 (5-15); ASPARTATE AMINO TRANSFERASE 19 U/L (5-40); CALCIUM 9.6 mg/dL (8.6-10.2); CARBON DIOXIDE 26 mEQ/L (20-30); CHLORIDE 97 mEQ/L (98-107); CREATININE 0.6 mg/dL (0.5-0.9); HEMOLYSIS 3; POTASSIUM 4.2 mEQ/L (3.4-4.9); SODIUM 139 mEQ/L (135-145); TOTAL PROTEIN 7.1 g/dL (6.6-8.7)
[2016-05-12 08:19] LABS: PLATELET COUNT 1074 K/UL (150-450)
[2016-05-12 08:27] VITALS: BP 152/87
[2016-05-12 08:54] LABS: ANISOCYTOSIS 1+; BAND NEUTROPHILS % (MANUAL) 0 % (0-8); BASOPHILS % (MANUAL) 0 % (0-2); EOSINOPHILS % (MANUAL) 2 % (0-3); HYPOCHROMASIA 1+; LYMPHOCYTES % (MANUAL) 31 % (20-45); MICROCYTES 1+; NEUTROPHILS % (MANUAL) 61 % (45-75); PLATELET ESTIMATE INCREASED; TOTAL CELLS COUNTED 100
[2016-05-12] MEDS: Heparin 5000 units/ml inj SUBQ SCH ×2 (09:11→21:14)
[2016-05-12] MEDS: metFORMIN 500mg tab ORAL SCH ×2 (09:12→17:27)
[2016-05-12] MEDS: Memantine 10mg tab ORAL SCH (09:12)
[2016-05-12] MEDS: Aggrenox Cap ORAL SCH ×2 (09:12→21:10)
[2016-05-12] MEDS: Lisinopril 20mg tab ORAL SCH (09:13)
[2016-05-12] MEDS: Neosporin Oint 15gm TOPIC SCH ×2 (09:14→17:30)
--- NOTE | 2016-05-12 11:18 | Infectious Diseases Prog Note ---
"Assessment/Plan Assessment/Plan antibiotics : none A 1. 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 CVA 5. DM 6. HTN P 1. observe off antibiotics Subjective ROS Limited/Unobtainable: Yes Allergies: Coded Allergies: HYDROMORPHONE (Verified Allergy, Unknown, 09/21/14) MORPHINE (Unverified Allergy, Unknown, 04/27/16) Objective Vital Signs Last 24 Hour Vital Signs Date Time Temp Pulse Resp B/P Pulse Ox O2 Delivery O2 Flow Rate FiO2 05/12/16 09:14 70 146/67 05/12/16 09:13 146/67 05/12/16 09:13 70 146/67 05/12/16 08:27 98.0 58 20 152/87 96 Room Air 05/12/16 06:51 Room Air 05/12/16 06:49 94 Room Air 05/12/16 04:33 98.1 74 19 159/86 97 Room Air 05/12/16 00:03 97.3 70 18 144/74 96 Room Air 05/11/16 21:48 76 153/82 05/11/16 20:00 97.5 76 20 153/82 95 Room Air 05/11/16 19:00 95 Room Air 05/11/16 19:00 Room Air 05/11/16 16:00 97.7 70 20 166/81 94 Room Air 05/11/16 11:58 98.4 68 20 144/57 96 Room Air Height (Feet): 5 Height (Inches): 6.00 Weight (Pounds): 150 Respiratory/Chest: lungs clear Cardiovascular: normal rate, regular rhythm, no gallop/murmur Abdomen: soft, non tender Extremities: no edema Laboratory Tests Test 05/12/16 05:05 White Blood Count 13.4 K/UL (4.8-10.8) H Red Blood Count 4.17 M/UL (4.20-5.40) L Hemoglobin 10.6 G/DL (12.0-16.0) L Hematocrit 33.6 % (37.0-47.0) L Mean Corpuscular Volume 80 FL (80-99) Mean Corpuscular Hemoglobin 25.5 PG (27.0-31.0) L Mean Corpuscular Hemoglobin Concent 31.7 G/DL (32.0-36.0) L Red Cell Distribution Width 17.0 % (11.6-14.8) H Platelet Count 1074 K/UL (150-450) *H Mean Platelet Volume 7.0 FL (6.5-10.1) Neutrophils (%) (Auto) % (45.0-75.0) Lymphocytes (%) (Auto) % (20.0-45.0) Monocytes (%) (Auto) % (1.0-10.0) Eosinophils (%) (Auto) % (0.0-3.0) Basophils (%) (Auto) % (0.0-2.0) Differential Total Cells Counted 100 Neutrophils % (Manual) 61 % (45-75) Lymphocytes % (Manual) 31 % (20-45) Monocytes % (Manual) 6 % (1-10) Eosinophils % (Manual) 2 % (0-3) Basophils % (Manual) 0 % (0-2) Band Neutrophils 0 % (0-8) Platelet Estimate Increased H Platelet Morphology Giant Platelets Occasional Hypochromasia 1+ Anisocytosis 1+ Microcytosis 1+ Sodium Level 139 mEQ/L (135-145) Potassium Level 4.2 mEQ/L (3.4-4.9) Chloride Level 97 mEQ/L (98-107) L Carbon Dioxide Level 26 mEQ/L (20-30) Anion Gap 16 (5-15) H Blood Urea Nitrogen 20 mg/dL (7-23) Creatinine 0.6 mg/dL (0.5-0.9) Estimat Glomerular Filtration Rate mL/min (>60) Glucose Level 88 mg/dL (74-106) Calcium Level 9.6 mg/dL (8.6-10.2) Total Bilirubin 0.4 mg/dL (0.0-1.2) Aspartate Amino Transf (AST/SGOT) 19 U/L (5-40) Alanine Aminotransferase (ALT/SGPT) 11 U/L (3-33) Alkaline Phosphatase 49 U/L (35-104) Total Protein 7.1 g/dL (6.6-8.7) Albumin 3.4 g/dL (3.5-5.2) L Globulin 3.7 g/dL Albumin/Globulin Ratio 0.9 (1.0-2.7) L YESSY,SHAKUNTALA May 12, 2016 11:18"
[2016-05-12 11:46] VITALS: BP 122/71
[2016-05-12 16:04] VITALS: BP 137/69
[2016-05-12 20:00] VITALS: BP 133/63
[2016-05-12] MEDS: Atorvastatin 20mg tab ORAL SCH (21:10)
[2016-05-13] VITALS (7 sets, daily range): BP systolic 119–142; BP diastolic 53–68
[2016-05-13] MEDS: NovoLOG Insulin Flexpen SUBQ SCH ×4 (06:30→21:43)
[2016-05-13] MEDS: Levothyroxine 25mcg tab ORAL SCH (06:43)
[2016-05-13] MEDS: Lactobacillus-GG tablet ORAL SCH ×3 (06:44→21:42)
--- NOTE | 2016-05-13 07:46 | General Progress Note ---
Assessment/Plan Problem List: (1) Hyperglycemia ICD Codes: R73.9 - Hyperglycemia SNOMED: 41733070 (2) Altered mental status ICD Codes: R41.82 - Altered mental status SNOMED: 036831263 Qualifiers: Qualified Codes: R41.82 - Altered mental status, unspecified (3) Sepsis ICD Codes: A41.9 - Sepsis SNOMED: 40523190 (4) Altered mental status ICD Codes: R41.82 - Altered mental status, unspecified SNOMED: 121354493 Qualifiers: Qualified Codes: R41.0 - Disorientation, unspecified (5) Stroke ICD Codes: I63.9 - Stroke SNOMED: 967217367 Qualifiers: (6) Hypothyroid ICD Codes: E03.9 - Hypothyroid SNOMED: 54088957 Qualifiers: Qualified Codes: E03.9 - Hypothyroidism, unspecified (7) Decubitus ulcer, stage 4 with infection ICD Codes: L89.94 - Pressure ulcer of unspecified site, stage 4 SNOMED: 1296331, 237260768 Status: stable, progressing Assessment/Plan wound care/dressing changes per surgery abx per id follow up urine cultures monitor bs antiplt rx dvt/stress ulcer prophylaxis frequent turning encourage pos. pain rx as needed heme eval pending ivf ordered ?dc planning. rn case manager looking for bed Subjective ROS Limited/Unobtainable: No Constitutional: Reports: malaise, weakness HEENT: Reports: no symptoms Cardiovascular: Reports: no symptoms Respiratory: Reports: no symptoms Gastrointestinal/Abdominal: Reports: no symptoms Genitourinary: Reports: no symptoms Neurologic/Psychiatric: Reports: pre-existing deficit Endocrine: Reports: no symptoms Hematologic/Lymphatic: Reports: no symptoms Allergies: Coded Allergies: HYDROMORPHONE (Verified Allergy, Unknown, 09/21/14) MORPHINE (Unverified Allergy, Unknown, 04/27/16) All Systems: reviewed and negative except above Subjective s/p uncomplicated flap revision. denies pain. denies sob. stilll looking for accepting snf. eating well.flap intact. elevated plts noted. message left with heme for eval Objective Last 24 Hour Vital Signs Date Time Temp Pulse Resp B/P Pulse Ox O2 Delivery O2 Flow Rate FiO2 05/13/16 04:00 97.2 70 20 142/68 95 Room Air 05/13/16 00:00 97.2 70 20 119/56 93 Room Air 05/12/16 21:12 67 133/63 05/12/16 21:12 67 133/63 05/12/16 20:00 96.6 67 20 133/63 97 Room Air 05/12/16 19:25 95 Room Air 05/12/16 19:25 Room Air 05/12/16 16:04 98.0 65 20 137/69 98 Room Air 05/12/16 11:46 98.4 102 20 122/71 98 Room Air 05/12/16 09:14 70 146/67 05/12/16 09:13 146/67 05/12/16 09:13 70 146/67 05/12/16 08:27 98.0 58 20 152/87 96 Room Air Intake and Output 05/12/16 05/13/16 19:00 07:00 Intake Total 840 ml 480 ml Output Total 400 ml 650 ml Balance 440 ml -170 ml Intake Oral 840 ml 480 ml Output Urine Total 400 ml 650 ml Height (Feet): 5 Height (Inches): 6.00 Weight (Pounds): 150 Objective General Appearance: WD/WN, alert Neck: supple Cardiovascular: regular rhythm Respiratory/Chest: chest wall non-tender, lungs clear, normal breath sounds, no respiratory distress, no accessory muscle use Abdomen: normal bowel sounds, non tender, soft, no organomegaly, no mass Edema: no edema noted Arm (L), no edema noted Arm (R), no edema noted Leg (L), no edema noted Leg (R), no edema noted Pedal (L), no edema noted Pedal (R), no edema noted Generalized Objective bandage over sacrum ISIDORO BYRNE May 13, 2016 07:46
[2016-05-13] MEDS: Memantine 10mg tab ORAL SCH (08:08)
[2016-05-13] MEDS: metFORMIN 500mg tab ORAL SCH ×2 (08:08→17:12)
[2016-05-13] MEDS: Aggrenox Cap ORAL SCH ×2 (08:08→21:41)
[2016-05-13] MEDS: Heparin 5000 units/ml inj SUBQ SCH ×2 (08:09→21:47)
[2016-05-13] MEDS: Lisinopril 20mg tab ORAL SCH (08:13)
[2016-05-13 09:49] LABS: MEAN CORPUSCULAR HEMOGLOBIN 25.7 PG (27.0-31.0); MEAN CORPUSCULAR HGB CONC 30.7 G/DL (32.0-36.0); MEAN CORPUSCULAR VOLUME 84 FL (80-99); MEAN PLATELET VOLUME 6.7 FL (6.5-10.1); PLATELET COUNT 999 K/UL (150-450); RED BLOOD COUNT 4.28 M/UL (4.20-5.40); RED CELL DISTRIBUTION WIDTH 16.6 % (11.6-14.8); WHITE BLOOD COUNT 11.9 K/UL (4.8-10.8)
[2016-05-13] MEDS: Neosporin Oint 15gm TOPIC SCH ×2 (10:00→17:14)
--- NOTE | 2016-05-13 10:52 | Infectious Diseases Prog Note ---
"Assessment/Plan Assessment/Plan antibiotics : none A 1. 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 CVA 5. DM 6. HTN P 1. observe off antibiotics Subjective ROS Limited/Unobtainable: Yes Allergies: Coded Allergies: HYDROMORPHONE (Verified Allergy, Unknown, 09/21/14) MORPHINE (Unverified Allergy, Unknown, 04/27/16) Objective Vital Signs Last 24 Hour Vital Signs Date Time Temp Pulse Resp B/P Pulse Ox O2 Delivery O2 Flow Rate FiO2 05/13/16 08:18 98.4 70 20 134/61 98 Room Air 05/13/16 08:13 70 134/61 05/13/16 08:13 134/61 05/13/16 08:12 70 134/61 05/13/16 07:56 Room Air 05/13/16 07:55 97 Room Air 05/13/16 04:00 97.2 70 20 142/68 95 Room Air 05/13/16 00:00 97.2 70 20 119/56 93 Room Air 05/12/16 21:12 67 133/63 05/12/16 21:12 67 133/63 05/12/16 20:00 96.6 67 20 133/63 97 Room Air 05/12/16 19:25 95 Room Air 05/12/16 19:25 Room Air 05/12/16 16:04 98.0 65 20 137/69 98 Room Air 05/12/16 11:46 98.4 102 20 122/71 98 Room Air Height (Feet): 5 Height (Inches): 6.00 Weight (Pounds): 150 Respiratory/Chest: lungs clear Cardiovascular: normal rate, regular rhythm, no gallop/murmur Abdomen: soft, non tender Extremities: no edema Skin: other - sacral wound clean Laboratory Tests Test 05/13/16 09:15 White Blood Count 11.9 K/UL (4.8-10.8) H Red Blood Count 4.28 M/UL (4.20-5.40) Hemoglobin 11.0 G/DL (12.0-16.0) L Hematocrit 35.8 % (37.0-47.0) L Mean Corpuscular Volume 84 FL (80-99) Mean Corpuscular Hemoglobin 25.7 PG (27.0-31.0) L Mean Corpuscular Hemoglobin Concent 30.7 G/DL (32.0-36.0) L Red Cell Distribution Width 16.6 % (11.6-14.8) H Platelet Count 999 K/UL (150-450) H Mean Platelet Volume 6.7 FL (6.5-10.1) Neutrophils (%) (Auto) % (45.0-75.0) Lymphocytes (%) (Auto) % (20.0-45.0) Monocytes (%) (Auto) % (1.0-10.0) Eosinophils (%) (Auto) % (0.0-3.0) Basophils (%) (Auto) % (0.0-2.0) Neutrophils % (Manual) Pending Lymphocytes % (Manual) Pending Platelet Estimate Pending Platelet Morphology Pending ALESSIO KRISHNAMURTHY May 13, 2016 10:52"
[2016-05-13 13:11] LABS: BAND NEUTROPHILS % (MANUAL) 1 % (0-8); EOSINOPHILS % (MANUAL) 5 % (0-3); LYMPHOCYTES % (MANUAL) 20 % (20-45); NEUTROPHILS % (MANUAL) 61 % (45-75); TOTAL CELLS COUNTED 100
[2016-05-13 13:12] LABS: ANISOCYTOSIS 2+; BASOPHILS % (MANUAL) 0 % (0-2); MACROCYTES 1+; PLATELET ESTIMATE INCREASED; PLATELET MORPHOLOGY NORMAL; POIKILOCYTOSIS 1+
[2016-05-13] MEDS ORDERED: Tubing IV Secondary IV ONE ×2 (15:26→15:59)
[2016-05-13] MEDS: Atorvastatin 20mg tab ORAL SCH (21:42)
[2016-05-14] VITALS: BP 143/67
[2016-05-14 04:00] VITALS: BP 159/80
[2016-05-14] MEDS: Levothyroxine 25mcg tab ORAL SCH (05:22)
[2016-05-14] MEDS: NovoLOG Insulin Flexpen SUBQ SCH ×4 (05:23→21:49)
[2016-05-14] MEDS: Lactobacillus-GG tablet ORAL SCH ×3 (05:23→21:44)
--- NOTE | 2016-05-14 07:47 | General Progress Note ---
Assessment/Plan Problem List: (1) Hyperglycemia ICD Codes: R73.9 - Hyperglycemia SNOMED: 84248108 (2) Altered mental status ICD Codes: R41.82 - Altered mental status SNOMED: 321241939 Qualifiers: Qualified Codes: R41.82 - Altered mental status, unspecified (3) Sepsis ICD Codes: A41.9 - Sepsis SNOMED: 08209003 (4) Altered mental status ICD Codes: R41.82 - Altered mental status, unspecified SNOMED: 070135866 Qualifiers: Qualified Codes: R41.0 - Disorientation, unspecified (5) Stroke ICD Codes: I63.9 - Stroke SNOMED: 231789166 Qualifiers: (6) Hypothyroid ICD Codes: E03.9 - Hypothyroid SNOMED: 37437808 Qualifiers: Qualified Codes: E03.9 - Hypothyroidism, unspecified (7) Decubitus ulcer, stage 4 with infection ICD Codes: L89.94 - Pressure ulcer of unspecified site, stage 4 SNOMED: 2966319, 687032473 Status: stable Assessment/Plan wound care/dressing changes per surgery abx per id follow up urine cultures monitor bs antiplt rx dvt/stress ulcer prophylaxis frequent turning encourage pos. pain rx as needed heme eval pending ivf ordered monitor/labs plts ?dc planning. social work case manager looking for bed Subjective ROS Limited/Unobtainable: No Constitutional: Reports: malaise, weakness HEENT: Reports: no symptoms Cardiovascular: Reports: no symptoms Respiratory: Reports: no symptoms Gastrointestinal/Abdominal: Reports: no symptoms Genitourinary: Reports: no symptoms Neurologic/Psychiatric: Reports: pre-existing deficit Endocrine: Reports: no symptoms Hematologic/Lymphatic: Reports: no symptoms Allergies: Coded Allergies: HYDROMORPHONE (Verified Allergy, Unknown, 09/21/14) MORPHINE (Unverified Allergy, Unknown, 04/27/16) All Systems: reviewed and negative except above Subjective s/p uncomplicated flap revision. denies pain. denies sob. stilll looking for accepting snf. eating well.flap intact. elevated plts noted. await heme consult. slight dehiscence inner part of flap Objective Last 24 Hour Vital Signs Date Time Temp Pulse Resp B/P Pulse Ox O2 Delivery O2 Flow Rate FiO2 05/14/16 04:00 97.7 75 20 159/80 94 Nasal Cannula 2.0 05/14/16 00:00 97.5 75 20 143/67 93 Room Air 05/13/16 21:42 78 136/60 05/13/16 21:42 78 136/60 05/13/16 20:00 98.1 78 20 136/60 100 Room Air 05/13/16 19:15 Room Air 05/13/16 19:00 96 Room Air 05/13/16 16:14 98.4 74 20 121/53 98 Room Air 05/13/16 11:44 98.0 75 20 138/66 98 Room Air 05/13/16 08:18 98.4 70 20 134/61 98 Room Air 05/13/16 08:13 70 134/61 05/13/16 08:13 134/61 05/13/16 08:12 70 134/61 05/13/16 07:56 Room Air 05/13/16 07:55 97 Room Air Intake and Output 05/13/16 05/14/16 19:00 07:00 Intake Total 530 ml 570 ml Output Total 250 ml 250 ml Balance 280 ml 320 ml Intake Oral 480 ml 120 ml IV Total 50 ml 450 ml Output Urine Total 250 ml 250 ml Laboratory Tests 05/13/16 09:15: White Blood Count 11.9H, Red Blood Count 4.28, Hemoglobin 11.0L, Hematocrit 35.8L, Mean Corpuscular Volume 84, Mean Corpuscular Hemoglobin 25.7L, Mean Corpuscular Hemoglobin Concent 30.7L, Red Cell Distribution Width 16.6H, Platelet Count 999H, Mean Platelet Volume 6.7, Neutrophils (%) (Auto) , Lymphocytes (%) (Auto) , Monocytes (%) (Auto) , Eosinophils (%) (Auto) , Basophils (%) (Auto) , Differential Total Cells Counted 100, Neutrophils % ( Manual) 61, Lymphocytes % (Manual) 20, Monocytes % (Manual) 13H, Eosinophils % ( Manual) 5H, Basophils % (Manual) 0, Band Neutrophils 1, Platelet Estimate IncreasedH, Platelet Morphology Normal, Poikilocytosis 1+, Anisocytosis 2+, Macrocytosis 1+ Height (Feet): 5 Height (Inches): 6.00 Weight (Pounds): 150 Objective General Appearance: WD/WN, alert Neck: supple Cardiovascular: regular rhythm Respiratory/Chest: chest wall non-tender, lungs clear, normal breath sounds, no respiratory distress, no accessory muscle use Abdomen: normal bowel sounds, non tender, soft, no organomegaly, no mass Edema: no edema noted Arm (L), no edema noted Arm (R), no edema noted Leg (L), no edema noted Leg (R), no edema noted Pedal (L), no edema noted Pedal (R), no edema noted Generalized Objective bandage over sacrum ISIDORO BYRNE May 14, 2016 07:47
[2016-05-14 08:00] VITALS: BP 147/67
[2016-05-14] MEDS: Aggrenox Cap ORAL SCH ×2 (08:16→21:44)
[2016-05-14] MEDS: metFORMIN 500mg tab ORAL SCH ×2 (08:16→17:05)
[2016-05-14] MEDS: Lisinopril 20mg tab ORAL SCH (08:17)
[2016-05-14] MEDS: Neosporin Oint 15gm TOPIC SCH ×2 (08:18→17:07)
[2016-05-14] MEDS: Memantine 10mg tab ORAL SCH (09:18)
[2016-05-14] MEDS: Heparin 5000 units/ml inj SUBQ SCH ×2 (09:21→21:46)
--- NOTE | 2016-05-14 11:39 | Infectious Diseases Prog Note ---
Assessment/Plan Assessment/Plan A; infected sacral ulcer s/p Rx Wound dehiscence DM HPN MRSA & VRE colonization P: observe off antibiotic Subjective ROS Limited/Unobtainable: Yes Allergies: Coded Allergies: HYDROMORPHONE (Verified Allergy, Unknown, 09/21/14) MORPHINE (Unverified Allergy, Unknown, 04/27/16) Objective Vital Signs Last 24 Hour Vital Signs Date Time Temp Pulse Resp B/P Pulse Ox O2 Delivery O2 Flow Rate FiO2 05/14/16 08:17 75 159/80 05/14/16 08:17 159/80 05/14/16 08:17 75 159/80 05/14/16 08:00 96.7 75 18 147/67 95 Room Air 05/14/16 04:00 97.7 75 20 159/80 94 Nasal Cannula 2.0 05/14/16 00:00 97.5 75 20 143/67 93 Room Air 05/13/16 21:42 78 136/60 05/13/16 21:42 78 136/60 05/13/16 20:00 98.1 78 20 136/60 100 Room Air 05/13/16 19:15 Room Air 05/13/16 19:00 96 Room Air 05/13/16 16:14 98.4 74 20 121/53 98 Room Air 05/13/16 11:44 98.0 75 20 138/66 98 Room Air Height (Feet): 5 Height (Inches): 6.00 Weight (Pounds): 150 General Appearance: no acute distress HEENT: normocephalic Respiratory/Chest: lungs clear Cardiovascular: normal rate Abdomen: soft, non tender Extremities: no edema Skin: ulcers Neurologic/Psychiatric: other - sleeping Current Medications Medications (Trade) Dose Ordered Sig/Rupert Route PRN Reason Start Time Stop Time Status Last Admin Dose Admin Acetaminophen (Tylenol) 650 mg Q6H PRN ORAL Mild Pain/Temp > 100.5 04/27/16 19:30 05/27/16 19:29 Amlodipine Besylate (Norvasc) 5 mg Q12HR ORAL 04/27/16 21:00 05/27/16 20:59 05/14/16 08:17 Atorvastatin Calcium (Lipitor) 20 mg BEDTIME ORAL 04/27/16 21:00 05/27/16 20:59 05/13/16 21:42 Carvedilol 3.125 mg 3.125 mg EVERY 12 HOURS ORAL 05/12/16 21:00 06/11/16 20:59 05/14/16 08:17 Dextrose (Dextrose 50%) STAT PRN IV Hypoglycemia 04/27/16 20:00 05/27/16 19:59 Dipyridamole/ Aspirin (Aggrenox) 1 cap Q12HR ORAL 04/27/16 21:00 05/27/16 20:59 05/14/16 08:16 Ferrous Sulfate (Feosol) 325 mg THREE TIMES A DAY ORAL 04/28/16 09:00 05/28/16 08:59 05/14/16 08:16 Heparin Sodium (Porcine) (Heparin 5000 units/ml) 5,000 units EVERY 12 HOURS SUBQ 04/27/16 21:00 05/27/16 20:59 05/14/16 09:21 Insulin Aspart (NovoLOG) BEFORE MEALS AND HS SUBQ 04/27/16 21:00 05/27/16 20:59 05/13/16 21:43 Lactobacillus Acidophilus (Culturelle) 1 tab Q8HR ORAL 04/27/16 22:00 05/27/16 21:59 05/14/16 05:23 Levothyroxine Sodium (Synthroid) 25 mcg DAILY@0630 ORAL 05/01/16 06:30 05/31/16 06:29 05/14/16 05:22 Levothyroxine Sodium (Synthroid) 150 mcg DAILY@0630 ORAL 05/01/16 06:30 05/31/16 06:29 05/14/16 05:23 Lisinopril (Prinivil) 40 mg DAILY ORAL 05/02/16 09:00 06/01/16 08:59 05/14/16 08:17 Memantine (Namenda) 10 mg DAILY ORAL 04/28/16 09:00 05/28/16 08:59 05/14/16 09:18 Metformin HCl (Glucophage) 1,000 mg BID ORAL 04/28/16 09:00 05/28/16 08:59 05/14/16 08:16 Neomycin/ Polymyxin/ Bacitracin (Neosporin Oint 15gm) 1 applic TWICE A DAY TOPIC 05/02/16 18:00 06/01/16 17:59 05/14/16 08:18 Sodium Chloride (Sodium Chloride 1000ml bag) 1,000 ml @ 50 mls/hr Q20H IV 05/13/16 08:00 06/12/16 07:59 05/13/16 08:07 EFRAIN GARCIA May 14, 2016 11:39
[2016-05-14 12:00] VITALS: BP 139/70
[2016-05-14] MEDS ORDERED: D5NS 1000ml IV ONE (12:34)
[2016-05-14 16:00] VITALS: BP 153/70
[2016-05-14 20:00] VITALS: BP 154/66
[2016-05-14] MEDS: Atorvastatin 20mg tab ORAL SCH (21:44)
[2016-05-15] VITALS: BP 124/70
[2016-05-15 04:00] VITALS: BP 125/86
[2016-05-15] MEDS: Levothyroxine 25mcg tab ORAL SCH (06:16)
[2016-05-15] MEDS: Lactobacillus-GG tablet ORAL SCH ×3 (06:16→20:57)
[2016-05-15] MEDS: NovoLOG Insulin Flexpen SUBQ SCH ×4 (06:19→20:59)
--- NOTE | 2016-05-15 07:32 | General Progress Note ---
Assessment/Plan Problem List: (1) Hyperglycemia ICD Codes: R73.9 - Hyperglycemia SNOMED: 74264188 (2) Altered mental status ICD Codes: R41.82 - Altered mental status SNOMED: 598647362 Qualifiers: Qualified Codes: R41.82 - Altered mental status, unspecified (3) Sepsis ICD Codes: A41.9 - Sepsis SNOMED: 69631546 (4) Altered mental status ICD Codes: R41.82 - Altered mental status, unspecified SNOMED: 985225341 Qualifiers: Qualified Codes: R41.0 - Disorientation, unspecified (5) Stroke ICD Codes: I63.9 - Stroke SNOMED: 326920812 Qualifiers: (6) Hypothyroid ICD Codes: E03.9 - Hypothyroid SNOMED: 94400992 Qualifiers: Qualified Codes: E03.9 - Hypothyroidism, unspecified (7) Decubitus ulcer, stage 4 with infection ICD Codes: L89.94 - Pressure ulcer of unspecified site, stage 4 SNOMED: 8304565, 487564182 Status: stable Assessment/Plan wound care/dressing changes per surgery abx per id monitor bs antiplt rx dvt/stress ulcer prophylaxis frequent turning encourage pos. pain rx as needed heme eval pending. message left with dr jason monitor/labs plts ?dc planning. case liner looking for bed Subjective ROS Limited/Unobtainable: No Constitutional: Reports: malaise, weakness HEENT: Reports: no symptoms Cardiovascular: Reports: no symptoms Respiratory: Reports: no symptoms Gastrointestinal/Abdominal: Reports: no symptoms Genitourinary: Reports: no symptoms Neurologic/Psychiatric: Reports: pre-existing deficit Endocrine: Reports: no symptoms Hematologic/Lymphatic: Reports: no symptoms Allergies: Coded Allergies: HYDROMORPHONE (Verified Allergy, Unknown, 09/21/14) MORPHINE (Unverified Allergy, Unknown, 04/27/16) All Systems: reviewed and negative except above Subjective s/p uncomplicated flap revision. denies pain. denies sob. stilll looking for accepting snf. eating well.flap intact. elevated plts noted. await heme consult. slight dehiscence inner part of flap Objective Last 24 Hour Vital Signs Date Time Temp Pulse Resp B/P Pulse Ox O2 Delivery O2 Flow Rate FiO2 05/15/16 04:00 97.5 71 20 125/86 95 Room Air 05/15/16 00:00 97.0 81 22 124/70 96 Room Air 05/14/16 21:43 80 154/66 05/14/16 21:00 80 154/66 05/14/16 21:00 97.1 05/14/16 20:00 95.9 80 20 154/66 96 Room Air 05/14/16 16:00 97.3 79 18 153/70 95 Room Air 05/14/16 12:00 97.9 77 18 139/70 96 Room Air 05/14/16 08:17 75 159/80 05/14/16 08:17 159/80 05/14/16 08:17 75 159/80 05/14/16 08:00 96.7 75 18 147/67 95 Room Air Intake and Output 05/14/16 05/15/16 19:00 07:00 Intake Total 790 ml 500 ml Output Total 400 ml 1800 ml Balance 390 ml -1300 ml Intake Oral 540 ml IV Total 250 ml 500 ml Output Urine Total 400 ml 1800 ml Height (Feet): 5 Height (Inches): 6.00 Weight (Pounds): 150 Objective General Appearance: WD/WN, alert Neck: supple Cardiovascular: regular rhythm Respiratory/Chest: chest wall non-tender, lungs clear, normal breath sounds, no respiratory distress, no accessory muscle use Abdomen: normal bowel sounds, non tender, soft, no organomegaly, no mass Edema: no edema noted Arm (L), no edema noted Arm (R), no edema noted Leg (L), no edema noted Leg (R), no edema noted Pedal (L), no edema noted Pedal (R), no edema noted Generalized Objective bandage over sacrum ISIDORO BYRNE May 15, 2016 07:32
[2016-05-15 08:00] VITALS: BP 143/70
[2016-05-15] MEDS: metFORMIN 500mg tab ORAL SCH ×2 (09:57→18:04)
[2016-05-15] MEDS: Lisinopril 20mg tab ORAL SCH (09:58)
[2016-05-15] MEDS: Aggrenox Cap ORAL SCH ×2 (09:58→20:57)
[2016-05-15] MEDS: Memantine 10mg tab ORAL SCH (09:58)
[2016-05-15] MEDS: Heparin 5000 units/ml inj SUBQ SCH ×2 (10:09→21:06)
[2016-05-15] MEDS: Neosporin Oint 15gm TOPIC SCH ×2 (10:11→18:04)
--- NOTE | 2016-05-15 11:14 | Infectious Diseases Prog Note ---
"Assessment/Plan Assessment/Plan antibiotics : none A 1. 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 CVA 5. DM 6. HTN P 1. observe off antibiotics 2. d/c planned Subjective ROS Limited/Unobtainable: Yes Allergies: Coded Allergies: HYDROMORPHONE (Verified Allergy, Unknown, 09/21/14) MORPHINE (Unverified Allergy, Unknown, 04/27/16) Objective Vital Signs Last 24 Hour Vital Signs Date Time Temp Pulse Resp B/P Pulse Ox O2 Delivery O2 Flow Rate FiO2 05/15/16 09:58 71 125/86 05/15/16 09:58 125/86 05/15/16 09:58 71 125/86 05/15/16 08:00 96.8 75 18 143/70 95 Room Air 05/15/16 07:51 Room Air 05/15/16 07:50 95 Room Air 05/15/16 04:00 97.5 71 20 125/86 95 Room Air 05/15/16 00:00 97.0 81 22 124/70 96 Room Air 05/14/16 21:43 80 154/66 05/14/16 21:00 80 154/66 05/14/16 21:00 97.1 05/14/16 20:00 95.9 80 20 154/66 96 Room Air 05/14/16 16:00 97.3 79 18 153/70 95 Room Air 05/14/16 12:00 97.9 77 18 139/70 96 Room Air Height (Feet): 5 Height (Inches): 6.00 Weight (Pounds): 150 Respiratory/Chest: lungs clear Cardiovascular: normal rate, regular rhythm, no gallop/murmur Abdomen: soft, non tender Extremities: no edema ALESSIO KRISHNAMURTHY May 15, 2016 11:14"
[2016-05-15 12:00] VITALS: BP 136/50
[2016-05-15 12:16] LABS: OTHERS PATHOLOGIST COMMENT
[2016-05-15 16:00] VITALS: BP 148/76
--- NOTE | 2016-05-15 16:01 | General Progress Note ---
Progress Note Progress Note For Dr. George: small area of flap separation - clean. Plan: Wound care Dr. George will be back on 05/17 to assess DIANA VU May 15, 2016 16:01
[2016-05-15 20:00] VITALS: BP 143/63
[2016-05-15] MEDS: Atorvastatin 20mg tab ORAL SCH (20:58)
[2016-05-16] VITALS: BP 148/80
[2016-05-16 04:00] VITALS: BP 130/71
--- NOTE | 2016-05-16 04:17 | Progress Note ---
DATE: 05/12/2016 CARDIOLOGY PROGRESS NOTE SUBJECTIVE: The patient remains hospitalized pending placement. She is alert and awake. Pain is controlled. Oral intake is adequate. Glucose control is better. OBJECTIVE: VITAL SIGNS: Blood pressure 159/86, pulse 74, and respirations 19. NECK: Supple. LUNGS: Clear. CARDIAC: Regular. Normal S1 and S2. ABDOMEN: Soft. EXTREMITIES: No edema. Wound site is dressed. IMPRESSION: 1. Hypertensive heart disease. 2. Type 2 diabetes mellitus. 3. Hypothyroidism. 4. Protein-calorie malnutrition. 5. Wound flap, status post revision. 6. Sinus node disease with sensitivity to beta-blockers in the past. PLAN: Consolidate beta-blockers. Titrate for optimal blood pressure and rate control to avoid recurring bradycardia. Darius Duran M.D. DR: SARAI JOB#: [id number] CC:
--- NOTE | 2016-05-16 04:27 | Progress Note ---
May 14, 2016 SUBJECTIVE: The patient's intake has decreased. Her platelet count continues to increase. She is continuing with wound care. OBJECTIVE: VITAL SIGNS: Blood pressure of 159/80, pulse 75, and respirations 20. NECK: Supple. LUNGS: Clear. CARDIAC: Regular. Normal S1 and S2. ABDOMEN: Soft. EXTREMITIES: No edema. There is slight dehiscence of the flap noted. Surgical input noted. IMPRESSION: 1. Thrombocytosis, recurrent. 2. Hypertensive heart disease. 3. Type 2 diabetes mellitus. 4. Status post flap revision. 5. Hypothyroidism on replacement therapy. PLAN: Continue current cardiovascular regimen. Surgical wound care. Titrate insulin. Maintain adequate hydration. Consider advancing anti-platelet drugs. Darius Duran M.D. DR: COREY JOB#: [id number] CC: ELAINE
--- NOTE | 2016-05-16 04:58 | Progress Note ---
DATE: 05/13/2016 CARDIOLOGY PROGRESS NOTE SUBJECTIVE: No new complaints. No signs of congestive heart failure. Wound is healing for evaluation. OBJECTIVE: Vitals reviewed. IMPRESSION: Stabilizing on current regimen. PLAN: Monitor for worsening thrombocytosis and consider alternate anti-platelet drugs. Darius Duran M.D. DR: FREDERICK JOB#: [id number] CC:
[2016-05-16] MEDS: Levothyroxine 25mcg tab ORAL SCH (06:12)
[2016-05-16] MEDS: Lactobacillus-GG tablet ORAL SCH ×3 (06:12→21:11)
[2016-05-16] MEDS: NovoLOG Insulin Flexpen SUBQ SCH ×4 (06:12→21:17)
--- NOTE | 2016-05-16 06:17 | Progress Note ---
DATE: 05/15/2016 CARDIOLOGY PROGRESS NOTE SUBJECTIVE: The patient has failed wound flap dehiscence. Surgical input noted. The patient's platelet count continues to rise. The patient has a history of multiple prior cerebrovascular accidents. OBJECTIVE: VITAL SIGNS: Blood pressure 125/86, pulse 71, respirations 20, and afebrile. NECK: Supple. LUNGS: Clear. CARDIAC: Regular. Normal S1 and S2 with a fourth heart sound. ABDOMEN: Soft. EXTREMITIES: No edema. SKIN: Wound site is dressed in place. IMPRESSION: 1. Status post with wound flap with revision and dehiscence. Ongoing care. 2. Hypertensive heart disease with controlled blood pressure. 3. Sinus node disease, stable on low dose beta-mine. 4. Type 2 diabetes mellitus with adequate glucose control and on insulin coverage by sliding scale. 5. Thrombocytosis now with recurrent thrombocytosis. We will discontinue aspirin and add anagrelide. 6. Hypothyroidism on replacement therapy. Darius Duran M.D. DR: FREDERICK JOB#: [id number] CC:
[2016-05-16 08:00] VITALS: BP 160/76
[2016-05-16] MEDS: metFORMIN 500mg tab ORAL SCH ×2 (09:59→17:14)
[2016-05-16] MEDS: Memantine 10mg tab ORAL SCH (09:59)
[2016-05-16] MEDS: Lisinopril 20mg tab ORAL SCH (09:59)
[2016-05-16] MEDS: Heparin 5000 units/ml inj SUBQ SCH ×2 (10:00→21:18)
[2016-05-16] MEDS: Neosporin Oint 15gm TOPIC SCH ×2 (10:01→17:14)
[2016-05-16] MEDS: ANAGRELIDE 0.5 MG ORAL SCH ×2 (10:42→17:14)
--- NOTE | 2016-05-16 10:43 | Infectious Diseases Prog Note ---
"Assessment/Plan Assessment/Plan antibiotics : none A 1. 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 CVA 5. DM 6. HTN P 1. observe off antibiotics 2. d/c planned Subjective Constitutional: Denies: chills, fever Respiratory: Denies: dry cough, shortness of breath Gastrointestinal/Abdominal: Denies: diarrhea, nausea, vomiting Musculoskeletal: Denies: pain Allergies: Coded Allergies: HYDROMORPHONE (Verified Allergy, Unknown, 09/21/14) MORPHINE (Unverified Allergy, Unknown, 04/27/16) Objective Vital Signs Last 24 Hour Vital Signs Date Time Temp Pulse Resp B/P Pulse Ox O2 Delivery O2 Flow Rate FiO2 05/16/16 09:59 77 160/76 05/16/16 09:59 160/76 05/16/16 09:59 77 160/76 05/16/16 08:00 96.6 77 18 160/76 96 Room Air 05/16/16 04:00 97.7 77 18 130/71 95 Room Air 05/16/16 00:00 97.3 77 18 148/80 95 Room Air 05/15/16 20:58 72 143/63 05/15/16 20:57 72 143/63 05/15/16 20:00 97.9 76 20 143/63 95 Room Air 05/15/16 19:30 Room Air 21 05/15/16 19:00 95 Room Air 21 05/15/16 16:00 97.0 72 20 148/76 95 Room Air 05/15/16 12:00 97.2 59 19 136/50 95 Room Air Height (Feet): 5 Height (Inches): 6.00 Weight (Pounds): 150 Respiratory/Chest: lungs clear Cardiovascular: normal rate, regular rhythm, no gallop/murmur Abdomen: soft, non tender Extremities: no edema ALESSIO KRISHNAMURTHY May 16, 2016 10:43"
[2016-05-16 11:45] VITALS: BP 146/75
[2016-05-16 16:10] VITALS: BP 137/64
--- NOTE | 2016-05-16 18:29 | General Progress Note ---
Assessment/Plan Problem List: (1) Hyperglycemia ICD Codes: R73.9 - Hyperglycemia SNOMED: 46363207 (2) Altered mental status ICD Codes: R41.82 - Altered mental status SNOMED: 850935995 Qualifiers: Qualified Codes: R41.82 - Altered mental status, unspecified (3) Sepsis ICD Codes: A41.9 - Sepsis SNOMED: 89295580 (4) Altered mental status ICD Codes: R41.82 - Altered mental status, unspecified SNOMED: 460998006 Qualifiers: Qualified Codes: R41.0 - Disorientation, unspecified (5) Stroke ICD Codes: I63.9 - Stroke SNOMED: 000853889 Qualifiers: (6) Hypothyroid ICD Codes: E03.9 - Hypothyroid SNOMED: 90657736 Qualifiers: Qualified Codes: E03.9 - Hypothyroidism, unspecified (7) Decubitus ulcer, stage 4 with infection ICD Codes: L89.94 - Pressure ulcer of unspecified site, stage 4 SNOMED: 5752591, 045128372 Assessment/Plan wound care/dressing changes per surgery abx per id monitor bs antiplt rx dvt/stress ulcer prophylaxis frequent turning encourage pos. pain rx as needed monitor/labs plts ?dc planning. 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 Subjective ROS Limited/Unobtainable: No Constitutional: Reports: malaise, weakness HEENT: Reports: no symptoms Cardiovascular: Reports: no symptoms Respiratory: Reports: no symptoms Gastrointestinal/Abdominal: Reports: no symptoms Genitourinary: Reports: no symptoms Neurologic/Psychiatric: Reports: pre-existing deficit Endocrine: Reports: no symptoms Hematologic/Lymphatic: Reports: no symptoms Allergies: Coded Allergies: HYDROMORPHONE (Verified Allergy, Unknown, 09/21/14) MORPHINE (Unverified Allergy, Unknown, 04/27/16) All Systems: reviewed and negative except above Subjective s/p uncomplicated flap revision. denies pain. denies sob. stilll looking for accepting snf. eating well.flap intact. elevated plts noted. await heme consult. slight dehiscence inner part of flap Objective Last 24 Hour Vital Signs Date Time Temp Pulse Resp B/P Pulse Ox O2 Delivery O2 Flow Rate FiO2 05/16/16 16:10 97.0 75 18 137/64 96 Room Air 05/16/16 11:45 97.5 77 18 146/75 96 Room Air 05/16/16 09:59 77 160/76 05/16/16 09:59 160/76 05/16/16 09:59 77 160/76 05/16/16 08:00 96.6 77 18 160/76 96 Room Air 05/16/16 04:00 97.7 77 18 130/71 95 Room Air 05/16/16 00:00 97.3 77 18 148/80 95 Room Air 05/15/16 20:58 72 143/63 05/15/16 20:57 72 143/63 05/15/16 20:00 97.9 76 20 143/63 95 Room Air 05/15/16 19:30 Room Air 21 05/15/16 19:00 95 Room Air 21 Intake and Output 05/15/16 05/16/16 19:00 07:00 Intake Total 640 ml 460 ml Output Total 450 ml 800 ml Balance 190 ml -340 ml Intake Oral 240 ml 360 ml IV Total 400 ml 100 ml Output Urine Total 450 ml 800 ml Height (Feet): 5 Height (Inches): 6.00 Weight (Pounds): 150 Objective General Appearance: WD/WN, alert Neck: supple Cardiovascular: regular rhythm Respiratory/Chest: chest wall non-tender, lungs clear, normal breath sounds, no respiratory distress, no accessory muscle use Abdomen: normal bowel sounds, non tender, soft, no organomegaly, no mass Edema: no edema noted Arm (L), no edema noted Arm (R), no edema noted Leg (L), no edema noted Leg (R), no edema noted Pedal (L), no edema noted Pedal (R), no edema noted Generalized Objective bandage over sacrum ISIDORO BYRNE May 16, 2016 18:29
[2016-05-16 20:00] VITALS: BP 140/71
[2016-05-16] MEDS: Atorvastatin 20mg tab ORAL SCH (21:11)
[2016-05-17] VITALS: BP 133/55
--- NOTE | 2016-05-17 03:28 | Progress Note ---
DATE: 05/16/2016 CARDIOLOGY PROGRESS NOTE: SUBJECTIVE: The patient continues to remain in the hospital due to inadequate outpatient discharge options. The patient requires wound care and total care. Her son is not able to provide this at home and at nursing home facility has not been located. OBJECTIVE: VITAL SIGNS: Afebrile, blood pressure 137/64, pulse 75, and respiratory rate 18. LUNGS: Clear. CARDIAC: Regular. Normal S1, S2. ABDOMEN: Soft. EXTREMITIES: No edema. SKIN: Flap site has dressing in place. PLAN: Stable for outpatient management. Medication regimen reviewed. Beta-mine dosing advanced slightly. We will continue anagrelide for thrombocytosis and remainder of medication regimen without change. Follow up platelet count has been ordered. Darius Duran M.D. DR: César JOB#: [id number] CC:
[2016-05-17 04:00] VITALS: BP 138/76
[2016-05-17] MEDS: NovoLOG Insulin Flexpen SUBQ SCH ×4 (06:30→21:11)
[2016-05-17] MEDS: Lactobacillus-GG tablet ORAL SCH ×3 (06:35→21:09)
[2016-05-17] MEDS: Levothyroxine 25mcg tab ORAL SCH (06:35)
--- NOTE | 2016-05-17 08:10 | General Progress Note ---
Assessment/Plan Problem List: (1) Hyperglycemia ICD Codes: R73.9 - Hyperglycemia SNOMED: 20266822 (2) Altered mental status ICD Codes: R41.82 - Altered mental status SNOMED: 282333008 Qualifiers: Qualified Codes: R41.82 - Altered mental status, unspecified (3) Sepsis ICD Codes: A41.9 - Sepsis SNOMED: 96220557 (4) Altered mental status ICD Codes: R41.82 - Altered mental status, unspecified SNOMED: 745090435 Qualifiers: Qualified Codes: R41.0 - Disorientation, unspecified (5) Stroke ICD Codes: I63.9 - Stroke SNOMED: 554031154 Qualifiers: (6) Hypothyroid ICD Codes: E03.9 - Hypothyroid SNOMED: 92752103 Qualifiers: Qualified Codes: E03.9 - Hypothyroidism, unspecified (7) Decubitus ulcer, stage 4 with infection ICD Codes: L89.94 - Pressure ulcer of unspecified site, stage 4 SNOMED: 6536106, 117916629 Status: stable, progressing Assessment/Plan wound care/dressing changes per surgery abx per id monitor bs antiplt rx dvt/stress ulcer prophylaxis frequent turning encourage pos. pain rx as needed monitor/labs plts ?dc planning. patient case manager looking for bed Subjective ROS Limited/Unobtainable: Yes Constitutional: Reports: malaise, weakness HEENT: Reports: no symptoms Cardiovascular: Reports: no symptoms Respiratory: Reports: no symptoms Gastrointestinal/Abdominal: Reports: no symptoms Genitourinary: Reports: no symptoms Neurologic/Psychiatric: Reports: pre-existing deficit Endocrine: Reports: no symptoms Hematologic/Lymphatic: Reports: no symptoms Allergies: Coded Allergies: HYDROMORPHONE (Verified Allergy, Unknown, 09/21/14) MORPHINE (Unverified Allergy, Unknown, 04/27/16) All Systems: reviewed and negative except above Subjective s/p uncomplicated flap revision. denies pain. denies sob. stilll looking for accepting snf. eating well.flap intact. elevated plts noted. await heme consult. slight dehiscence inner part of flap Objective Last 24 Hour Vital Signs Date Time Temp Pulse Resp B/P Pulse Ox O2 Delivery O2 Flow Rate FiO2 05/17/16 04:00 97.7 71 18 138/76 95 Room Air 05/17/16 00:00 98.0 77 16 133/55 97 Room Air 05/16/16 21:11 82 140/71 05/16/16 21:11 82 140/71 05/16/16 20:00 97.2 82 18 140/71 97 Room Air 05/16/16 16:10 97.0 75 18 137/64 96 Room Air 05/16/16 11:45 97.5 77 18 146/75 96 Room Air 05/16/16 09:59 77 160/76 05/16/16 09:59 160/76 05/16/16 09:59 77 160/76 Intake and Output 05/16/16 05/17/16 19:00 07:00 Intake Total 670 ml 1170 ml Output Total 950 ml Balance 670 ml 220 ml Intake Oral 120 ml 720 ml IV Total 550 ml 450 ml Output Urine Total 950 ml # Bowel Movements 1 1 Laboratory Tests 05/17/16 04:55: Sodium Level [Pending], Potassium Level [Pending], Chloride Level [Pending], Carbon Dioxide Level [Pending], Blood Urea Nitrogen [Pending], Creatinine [ Pending], Estimat Glomerular Filtration Rate [Pending], Glucose Level [Pending] , Calcium Level [Pending], Total Bilirubin [Pending], Aspartate Amino Transf ( AST/SGOT) [Pending], Alanine Aminotransferase (ALT/SGPT) [Pending], Alkaline Phosphatase [Pending], Total Protein [Pending], Albumin [Pending], Globulin [ Pending] Height (Feet): 5 Height (Inches): 6.00 Weight (Pounds): 150 Objective General Appearance: WD/WN, alert Neck: supple Cardiovascular: regular rhythm Respiratory/Chest: chest wall non-tender, lungs clear, normal breath sounds, no respiratory distress, no accessory muscle use Abdomen: normal bowel sounds, non tender, soft, no organomegaly, no mass Edema: no edema noted Arm (L), no edema noted Arm (R), no edema noted Leg (L), no edema noted Leg (R), no edema noted Pedal (L), no edema noted Pedal (R), no edema noted Generalized Objective bandage over sacrum ISIDORO BYRNE May 17, 2016 08:10
[2016-05-17] MEDS: Neosporin Oint 15gm TOPIC SCH ×2 (08:24→18:11)
[2016-05-17] MEDS: ANAGRELIDE 0.5 MG ORAL SCH ×2 (08:25→18:11)
[2016-05-17] MEDS: Lisinopril 20mg tab ORAL SCH (08:25)
[2016-05-17] MEDS: Memantine 10mg tab ORAL SCH (08:25)
[2016-05-17] MEDS: Carvedilol 6.25mg Tab ORAL SCH ×2 (08:26→21:09)
[2016-05-17] MEDS: metFORMIN 500mg tab ORAL SCH ×2 (08:26→18:11)
[2016-05-17 08:28] LABS: MEAN CORPUSCULAR HEMOGLOBIN 25.3 PG (27.0-31.0); MEAN CORPUSCULAR HGB CONC 30.4 G/DL (32.0-36.0); MEAN CORPUSCULAR VOLUME 83 FL (80-99); MEAN PLATELET VOLUME 6.6 FL (6.5-10.1); PLATELET COUNT 915 K/UL (150-450); RED BLOOD COUNT 4.68 M/UL (4.20-5.40); WHITE BLOOD COUNT 10.7 K/UL (4.8-10.8)
[2016-05-17 08:29] VITALS: BP 152/68
[2016-05-17] MEDS: Heparin 5000 units/ml inj SUBQ SCH ×2 (08:29→21:16)
[2016-05-17 08:56] LABS: ALANINE AMINOTRANSFERASE 8 U/L (3-33); ANION GAP 18 (5-15); ASPARTATE AMINO TRANSFERASE 14 U/L (5-40); CALCIUM 9.4 mg/dL (8.6-10.2); CARBON DIOXIDE 24 mEQ/L (20-30); CHLORIDE 98 mEQ/L (98-107); CREATININE 0.7 mg/dL (0.5-0.9); HEMOLYSIS 14; POTASSIUM 4.2 mEQ/L (3.4-4.9); SODIUM 140 mEQ/L (135-145); TOTAL PROTEIN 6.8 g/dL (6.6-8.7)
[2016-05-17 10:19] LABS: BAND NEUTROPHILS % (MANUAL) 0 % (0-8); BASOPHILS % (MANUAL) 0 % (0-2); EOSINOPHILS % (MANUAL) 1 % (0-3); LYMPHOCYTES % (MANUAL) 43 % (20-45); NEUTROPHILS % (MANUAL) 47 % (45-75); PLATELET ESTIMATE INCREASED; PLATELET MORPHOLOGY NORMAL; TOTAL CELLS COUNTED 100
[2016-05-17 10:20] LABS: ANISOCYTOSIS 1+; HYPOCHROMASIA 2+
[2016-05-17 12:03] VITALS: BP 96/51
--- NOTE | 2016-05-17 13:13 | Infectious Diseases Prog Note ---
Assessment/Plan Assessment/Plan A; infected sacral ulcer s/p Rx Wound dehiscence DM HPN MRSA & VRE colonization P: observe off antibiotic Subjective ROS Limited/Unobtainable: Yes Constitutional: Reports: no symptoms Musculoskeletal: Reports: no symptoms Allergies: Coded Allergies: HYDROMORPHONE (Verified Allergy, Unknown, 09/21/14) MORPHINE (Unverified Allergy, Unknown, 04/27/16) Objective Vital Signs Last 24 Hour Vital Signs Date Time Temp Pulse Resp B/P Pulse Ox O2 Delivery O2 Flow Rate FiO2 05/17/16 12:03 98.4 104 20 96/51 96 Room Air 05/17/16 08:29 98.2 79 20 152/68 98 Room Air 05/17/16 08:26 79 152/68 05/17/16 08:25 152/68 05/17/16 08:24 79 152/68 05/17/16 04:00 97.7 71 18 138/76 95 Room Air 05/17/16 00:00 98.0 77 16 133/55 97 Room Air 05/16/16 21:11 82 140/71 05/16/16 21:11 82 140/71 05/16/16 20:00 97.2 82 18 140/71 97 Room Air 05/16/16 16:10 97.0 75 18 137/64 96 Room Air Height (Feet): 5 Height (Inches): 6.00 Weight (Pounds): 150 General Appearance: no acute distress HEENT: mucous membranes moist Respiratory/Chest: lungs clear Cardiovascular: normal rate Abdomen: soft, non tender Extremities: no edema Skin: ulcers Neurologic/Psychiatric: alert, responsive Laboratory Tests Test 05/17/16 08:05 White Blood Count 10.7 K/UL (4.8-10.8) Red Blood Count 4.68 M/UL (4.20-5.40) Hemoglobin 11.9 G/DL (12.0-16.0) L Hematocrit 39.0 % (37.0-47.0) Mean Corpuscular Volume 83 FL (80-99) Mean Corpuscular Hemoglobin 25.3 PG (27.0-31.0) L Mean Corpuscular Hemoglobin Concent 30.4 G/DL (32.0-36.0) L Red Cell Distribution Width 17.0 % (11.6-14.8) H Platelet Count 915 K/UL (150-450) H Mean Platelet Volume 6.6 FL (6.5-10.1) Neutrophils (%) (Auto) % (45.0-75.0) Lymphocytes (%) (Auto) % (20.0-45.0) Monocytes (%) (Auto) % (1.0-10.0) Eosinophils (%) (Auto) % (0.0-3.0) Basophils (%) (Auto) % (0.0-2.0) Differential Total Cells Counted 100 Neutrophils % (Manual) 47 % (45-75) Lymphocytes % (Manual) 43 % (20-45) Monocytes % (Manual) 9 % (1-10) Eosinophils % (Manual) 1 % (0-3) Basophils % (Manual) 0 % (0-2) Band Neutrophils 0 % (0-8) Platelet Estimate Increased H Platelet Morphology Normal Hypochromasia 2+ Anisocytosis 1+ Sodium Level 140 mEQ/L (135-145) Potassium Level 4.2 mEQ/L (3.4-4.9) Chloride Level 98 mEQ/L (98-107) Carbon Dioxide Level 24 mEQ/L (20-30) Anion Gap 18 (5-15) H Blood Urea Nitrogen 16 mg/dL (7-23) Creatinine 0.7 mg/dL (0.5-0.9) Estimat Glomerular Filtration Rate mL/min (>60) Glucose Level 133 mg/dL (74-106) H Calcium Level 9.4 mg/dL (8.6-10.2) Magnesium Level 1.3 mg/dL (1.7-2.5) L Total Bilirubin 0.4 mg/dL (0.0-1.2) Aspartate Amino Transf (AST/SGOT) 14 U/L (5-40) Alanine Aminotransferase (ALT/SGPT) 8 U/L (3-33) Alkaline Phosphatase 47 U/L (35-104) Total Protein 6.8 g/dL (6.6-8.7) Albumin 3.5 g/dL (3.5-5.2) Globulin 3.3 g/dL Albumin/Globulin Ratio 1.0 (1.0-2.7) Current Medications Medications (Trade) Dose Ordered Sig/Rupert Route PRN Reason Start Time Stop Time Status Last Admin Dose Admin Acetaminophen (Tylenol) 650 mg Q6H PRN ORAL Mild Pain/Temp > 100.5 04/27/16 19:30 05/27/16 19:29 Amlodipine Besylate (Norvasc) 5 mg Q12HR ORAL 04/27/16 21:00 05/27/16 20:59 05/17/16 08:24 Anagrelide HCl (Agrylin) 1 mg TWICE A DAY ORAL 05/16/16 09:00 06/15/16 08:59 05/17/16 08:25 Atorvastatin Calcium (Lipitor) 20 mg BEDTIME ORAL 04/27/16 21:00 05/27/16 20:59 05/16/16 21:11 Carvedilol (Coreg) 6.25 mg EVERY 12 HOURS ORAL 05/17/16 09:00 06/16/16 08:59 05/17/16 08:26 Dextrose (Dextrose 50%) STAT PRN IV Hypoglycemia 04/27/16 20:00 05/27/16 19:59 Ferrous Sulfate (Feosol) 325 mg THREE TIMES A DAY ORAL 04/28/16 09:00 05/28/16 08:59 05/17/16 08:25 Heparin Sodium (Porcine) (Heparin 5000 units/ml) 5,000 units EVERY 12 HOURS SUBQ 04/27/16 21:00 05/27/16 20:59 05/17/16 08:29 Insulin Aspart (NovoLOG) BEFORE MEALS AND HS SUBQ 04/27/16 21:00 05/27/16 20:59 05/16/16 21:17 Lactobacillus Acidophilus (Culturelle) 1 tab Q8HR ORAL 04/27/16 22:00 05/27/16 21:59 05/17/16 06:35 Levothyroxine Sodium (Synthroid) 25 mcg DAILY@0630 ORAL 05/01/16 06:30 05/31/16 06:29 05/17/16 06:35 Levothyroxine Sodium (Synthroid) 150 mcg DAILY@0630 ORAL 05/01/16 06:30 05/31/16 06:29 05/17/16 06:35 Lisinopril (Prinivil) 40 mg DAILY ORAL 05/02/16 09:00 06/01/16 08:59 05/17/16 08:25 Memantine (Namenda) 10 mg DAILY ORAL 04/28/16 09:00 05/28/16 08:59 05/17/16 08:25 Metformin HCl (Glucophage) 1,000 mg BID ORAL 04/28/16 09:00 05/28/16 08:59 05/17/16 08:26 Neomycin/ Polymyxin/ Bacitracin 1 applic 1 applic TWICE A DAY TOPIC 05/02/16 18:00 06/01/16 17:59 05/17/16 08:24 Sodium Chloride (Sodium Chloride 1000ml bag) 1,000 ml @ 50 mls/hr Q20H IV 05/13/16 08:00 06/12/16 07:59 05/16/16 21:12 EFRAIN GARCIA May 17, 2016 13:13
[2016-05-17 16:08] VITALS: BP 127/57
[2016-05-17 20:08] VITALS: BP 154/66
[2016-05-17] MEDS: Atorvastatin 20mg tab ORAL SCH (21:09)
[2016-05-18] VITALS (7 sets, daily range): BP systolic 114–153; BP diastolic 54–72
[2016-05-18] MEDS: Lactobacillus-GG tablet ORAL SCH ×3 (06:20→21:35)
[2016-05-18] MEDS: NovoLOG Insulin Flexpen SUBQ SCH ×4 (06:21→21:33)
[2016-05-18] MEDS: Levothyroxine 25mcg tab ORAL SCH (07:36)
[2016-05-18] MEDS: Heparin 5000 units/ml inj SUBQ SCH ×2 (08:19→21:33)
[2016-05-18] MEDS: Lisinopril 20mg tab ORAL SCH (08:21)
[2016-05-18] MEDS: metFORMIN 500mg tab ORAL SCH ×2 (08:22→17:26)
[2016-05-18] MEDS: Carvedilol 6.25mg Tab ORAL SCH ×2 (08:22→21:26)
[2016-05-18] MEDS: Memantine 10mg tab ORAL SCH (08:26)
--- NOTE | 2016-05-18 08:38 | General Progress Note ---
Assessment/Plan Problem List: (1) Hyperglycemia ICD Codes: R73.9 - Hyperglycemia SNOMED: 48008013 (2) Altered mental status ICD Codes: R41.82 - Altered mental status SNOMED: 457945563 Qualifiers: Qualified Codes: R41.82 - Altered mental status, unspecified (3) Sepsis ICD Codes: A41.9 - Sepsis SNOMED: 83778071 (4) Altered mental status ICD Codes: R41.82 - Altered mental status, unspecified SNOMED: 575188328 Qualifiers: Qualified Codes: R41.0 - Disorientation, unspecified (5) Stroke ICD Codes: I63.9 - Stroke SNOMED: 871533882 Qualifiers: (6) Hypothyroid ICD Codes: E03.9 - Hypothyroid SNOMED: 12838603 Qualifiers: Qualified Codes: E03.9 - Hypothyroidism, unspecified (7) Decubitus ulcer, stage 4 with infection ICD Codes: L89.94 - Pressure ulcer of unspecified site, stage 4 SNOMED: 4919545, 144609358 Status: stable Assessment/Plan wound care/dressing changes per surgery abx per id monitor bs antiplt rx dvt/stress ulcer prophylaxis frequent turning encourage pos. pain rx as needed monitor/labs plts ?dc planning. case management specialist looking for bed Subjective ROS Limited/Unobtainable: No Constitutional: Reports: malaise, weakness HEENT: Reports: no symptoms Cardiovascular: Reports: no symptoms Respiratory: Reports: no symptoms Gastrointestinal/Abdominal: Reports: no symptoms Genitourinary: Reports: no symptoms Neurologic/Psychiatric: Reports: pre-existing deficit Endocrine: Reports: no symptoms Hematologic/Lymphatic: Reports: no symptoms Allergies: Coded Allergies: HYDROMORPHONE (Verified Allergy, Unknown, 09/21/14) MORPHINE (Unverified Allergy, Unknown, 04/27/16) All Systems: reviewed and negative except above Subjective s/p uncomplicated flap revision. denies pain. denies sob. stilll looking for accepting snf. eating well.flap intact. elevated plts noted. son wants to take pt home. Objective Last 24 Hour Vital Signs Date Time Temp Pulse Resp B/P Pulse Ox O2 Delivery O2 Flow Rate FiO2 05/18/16 08:22 68 134/68 05/18/16 08:21 134/68 05/18/16 08:21 68 134/68 05/18/16 04:00 97.6 68 18 134/68 96 Room Air 05/18/16 00:00 97.7 70 18 143/72 98 Room Air 05/17/16 21:09 75 154/66 05/17/16 21:09 75 154/66 05/17/16 20:08 98.3 75 19 154/66 97 Room Air 05/17/16 19:00 Room Air 05/17/16 19:00 96 Room Air 21 05/17/16 16:08 97.9 77 19 127/57 99 Room Air 05/17/16 12:03 98.4 104 20 96/51 96 Room Air Intake and Output 05/17/16 05/18/16 18:59 06:59 Intake Total 1220 ml 788 ml Output Total 600 ml 1750 ml Balance 620 ml -962 ml Intake Oral 720 ml 238 ml IV Total 500 ml 550 ml Output Urine Total 600 ml 1750 ml # Voids 1 Height (Feet): 5 Height (Inches): 6.00 Weight (Pounds): 150 Objective General Appearance: WD/WN, alert Neck: supple Cardiovascular: regular rhythm Respiratory/Chest: chest wall non-tender, lungs clear, normal breath sounds, no respiratory distress, no accessory muscle use Abdomen: normal bowel sounds, non tender, soft, no organomegaly, no mass Edema: no edema noted Arm (L), no edema noted Arm (R), no edema noted Leg (L), no edema noted Leg (R), no edema noted Pedal (L), no edema noted Pedal (R), no edema noted Generalized Objective bandage over sacrum ISIDORO BYRNE May 18, 2016 08:37
[2016-05-18] MEDS: Neosporin Oint 15gm TOPIC SCH ×2 (09:00→17:26)
[2016-05-18] MEDS: ANAGRELIDE 0.5 MG ORAL SCH ×2 (10:02→17:25)
--- NOTE | 2016-05-18 14:23 | Infectious Diseases Prog Note ---
Assessment/Plan Assessment/Plan A; infected sacral ulcer s/p Rx Wound dehiscence DM HPN MRSA & VRE colonization P: observe off antibiotic Subjective ROS Limited/Unobtainable: Yes Allergies: Coded Allergies: HYDROMORPHONE (Verified Allergy, Unknown, 09/21/14) MORPHINE (Unverified Allergy, Unknown, 04/27/16) Objective Vital Signs Last 24 Hour Vital Signs Date Time Temp Pulse Resp B/P Pulse Ox O2 Delivery O2 Flow Rate FiO2 05/18/16 12:44 97.7 80 19 114/54 96 Room Air 05/18/16 08:40 97 Room Air 21 05/18/16 08:40 Room Air 21 05/18/16 08:30 97.0 75 19 153/71 98 Room Air 05/18/16 08:22 68 134/68 05/18/16 08:21 134/68 05/18/16 08:21 68 134/68 05/18/16 04:00 97.6 68 18 134/68 96 Room Air 05/18/16 00:00 97.7 70 18 143/72 98 Room Air 05/17/16 21:09 75 154/66 05/17/16 21:09 75 154/66 05/17/16 20:08 98.3 75 19 154/66 97 Room Air 05/17/16 19:00 Room Air 05/17/16 19:00 96 Room Air 05/17/16 16:08 97.9 77 19 127/57 99 Room Air Height (Feet): 5 Height (Inches): 6.00 Weight (Pounds): 150 General Appearance: no acute distress HEENT: mucous membranes moist Respiratory/Chest: lungs clear Cardiovascular: normal rate Abdomen: soft, non tender Extremities: no edema Skin: ulcers Neurologic/Psychiatric: other - sleeping Current Medications Medications (Trade) Dose Ordered Sig/Rupert Route PRN Reason Start Time Stop Time Status Last Admin Dose Admin Acetaminophen (Tylenol) 650 mg Q6H PRN ORAL Mild Pain/Temp > 100.5 04/27/16 19:30 05/27/16 19:29 Amlodipine Besylate (Norvasc) 5 mg Q12HR ORAL 04/27/16 21:00 05/27/16 20:59 05/18/16 08:21 Anagrelide HCl (Agrylin) 1 mg TWICE A DAY ORAL 05/16/16 09:00 06/15/16 08:59 05/18/16 10:02 Atorvastatin Calcium (Lipitor) 20 mg BEDTIME ORAL 04/27/16 21:00 05/27/16 20:59 05/17/16 21:09 Carvedilol (Coreg) 6.25 mg EVERY 12 HOURS ORAL 05/17/16 09:00 06/16/16 08:59 05/18/16 08:22 Dextrose (Dextrose 50%) STAT PRN IV Hypoglycemia 04/27/16 20:00 05/27/16 19:59 Ferrous Sulfate (Feosol) 325 mg THREE TIMES A DAY ORAL 04/28/16 09:00 05/28/16 08:59 05/18/16 13:15 Heparin Sodium (Porcine) (Heparin 5000 units/ml) 5,000 units EVERY 12 HOURS SUBQ 04/27/16 21:00 05/27/16 20:59 05/18/16 08:19 Insulin Aspart (NovoLOG) BEFORE MEALS AND HS SUBQ 04/27/16 21:00 05/27/16 20:59 05/18/16 11:23 Lactobacillus Acidophilus (Culturelle) 1 tab Q8HR ORAL 04/27/16 22:00 05/27/16 21:59 05/18/16 13:15 Levothyroxine Sodium (Synthroid) 25 mcg DAILY@0630 ORAL 05/01/16 06:30 05/31/16 06:29 05/18/16 07:36 Levothyroxine Sodium (Synthroid) 150 mcg DAILY@0630 ORAL 05/01/16 06:30 05/31/16 06:29 05/18/16 07:36 Lisinopril (Prinivil) 40 mg DAILY ORAL 05/02/16 09:00 06/01/16 08:59 05/18/16 08:21 Memantine (Namenda) 10 mg DAILY ORAL 04/28/16 09:00 05/28/16 08:59 05/18/16 08:26 Metformin HCl (Glucophage) 1,000 mg BID ORAL 04/28/16 09:00 05/28/16 08:59 05/18/16 08:22 Neomycin/ Polymyxin/ Bacitracin 1 applic 1 applic TWICE A DAY TOPIC 05/02/16 18:00 06/01/16 17:59 05/17/16 18:11 Sodium Chloride (Sodium Chloride 1000ml bag) 1,000 ml @ 50 mls/hr Q20H IV 05/13/16 08:00 06/12/16 07:59 05/17/16 18:18 EFRAIN GARCIA May 18, 2016 14:23
[2016-05-18] MEDS: Atorvastatin 20mg tab ORAL SCH (21:26)
--- NOTE | 2016-05-18 22:07 | Progress Note ---
DATE: 05/18/2016 CARDIOLOGY PROGRESS NOTE SUBJECTIVE: Paperwork was completed with the medical social consultant to order a hospital bed, but the patient's anticipated discharge. The patient received IV magnesium last night and this morning for a level of 1.3. The patient has continued to receive wound care. The patient is on anagrelide for the last 3 to 4 days due to worsening thrombocytosis, which has been a problem in the past. OBJECTIVE: VITAL SIGNS: Blood pressure 114/54, pulse 80, and respirations 19. NECK: Supple. LUNGS: Clear. CARDIAC: Regular. Normal S1 and S2. ABDOMEN: Soft. EXTREMITIES: No edema. IMPRESSION: Stable for outpatient management with appropriate surgeon assistant. PLAN: We will continue to follow platelet counts and observe on current medication regimen. Darius Duran M.D. DR: FREDERICK JOB#: [id number] CC:
--- NOTE | 2016-05-18 22:07 | Progress Note ---
DATE: 05/17/2016 CARDIOLOGY PROGRESS NOTE SUBJECTIVE: The patient remains on wound care. She is tolerating her medications. OBJECTIVE: VITAL SIGNS: Blood pressure 138/76, heart rate 71, respiratory rate 18, and afebrile. Clinical exam is unchanged. IMPRESSION: 1. Thrombocytosis on anagrelide now. 2. Continue to monitor hypomagnesemia on IV replacement again. 3. Decubitus with flap status post revision getting wound care. 4. Insulin-requiring diabetes. 5. Hypertensive heart disease. 6. Hypothyroidism. PLAN: The correctional case manager is consulting with the patient's son with respect to discharge and disposition options. Darius Duran M.D. DR: FREDERICK JOB#: [id number] CC:
[2016-05-19 04:00] VITALS: BP 146/78
[2016-05-19] MEDS: NovoLOG Insulin Flexpen SUBQ SCH ×4 (06:30→20:48)
[2016-05-19] MEDS: Levothyroxine 25mcg tab ORAL SCH (06:52)
[2016-05-19] MEDS: Lactobacillus-GG tablet ORAL SCH ×3 (06:52→20:46)
[2016-05-19 08:23] VITALS: BP 147/86
--- NOTE | 2016-05-19 08:28 | General Progress Note ---
Assessment/Plan Problem List: (1) Hyperglycemia ICD Codes: R73.9 - Hyperglycemia SNOMED: 15916571 (2) Altered mental status ICD Codes: R41.82 - Altered mental status SNOMED: 335232573 Qualifiers: Qualified Codes: R41.82 - Altered mental status, unspecified (3) Sepsis ICD Codes: A41.9 - Sepsis SNOMED: 41585743 (4) Altered mental status ICD Codes: R41.82 - Altered mental status, unspecified SNOMED: 360383194 Qualifiers: Qualified Codes: R41.0 - Disorientation, unspecified (5) Stroke ICD Codes: I63.9 - Stroke SNOMED: 673886676 Qualifiers: (6) Hypothyroid ICD Codes: E03.9 - Hypothyroid SNOMED: 77490875 Qualifiers: Qualified Codes: E03.9 - Hypothyroidism, unspecified (7) Decubitus ulcer, stage 4 with infection ICD Codes: L89.94 - Pressure ulcer of unspecified site, stage 4 SNOMED: 5106203, 203045191 Status: stable, unchanged Assessment/Plan wound care/dressing changes per surgery abx per id monitor bs antiplt rx dvt/stress ulcer prophylaxis frequent turning encourage pos. pain rx as needed monitor/labs plts ?dc planning home vs snf. mental health case manager looking for bed. family may take pt home. they are currently interviewing 24hr caregivers Subjective ROS Limited/Unobtainable: No Constitutional: Reports: malaise, weakness HEENT: Reports: no symptoms Cardiovascular: Reports: no symptoms Respiratory: Reports: no symptoms Gastrointestinal/Abdominal: Reports: no symptoms Genitourinary: Reports: no symptoms Neurologic/Psychiatric: Reports: pre-existing deficit Endocrine: Reports: no symptoms Hematologic/Lymphatic: Reports: no symptoms Allergies: Coded Allergies: HYDROMORPHONE (Verified Allergy, Unknown, 09/21/14) MORPHINE (Unverified Allergy, Unknown, 04/27/16) All Systems: reviewed and negative except above Subjective s/p uncomplicated flap revision. denies pain. denies sob. stilll looking for accepting snf. eating well.flap intact. elevated plts noted. son wants to take pt home. Objective Last 24 Hour Vital Signs Date Time Temp Pulse Resp B/P Pulse Ox O2 Delivery O2 Flow Rate FiO2 05/19/16 08:23 97.8 70 20 147/86 96 Room Air 05/19/16 04:00 98.1 70 18 146/78 95 Room Air 05/18/16 23:52 97.8 72 18 149/64 94 Room Air 05/18/16 21:27 76 137/54 05/18/16 21:26 76 137/54 05/18/16 20:00 97.8 76 18 137/54 97 Room Air 05/18/16 19:30 97 Room Air 05/18/16 19:30 Room Air 05/18/16 16:10 98.2 75 20 134/62 98 Room Air 05/18/16 12:44 97.7 80 19 114/54 96 Room Air 05/18/16 08:40 97 Room Air 21 05/18/16 08:40 Room Air 21 05/18/16 08:30 97.0 75 19 153/71 98 Room Air Intake and Output 05/18/16 05/19/16 19:00 07:00 Intake Total 960 ml 820 ml Output Total 600 ml 1275 ml Balance 360 ml -455 ml Intake Oral 660 ml 620 ml IV Total 300 ml 200 ml Output Urine Total 600 ml 1275 ml Height (Feet): 5 Height (Inches): 6.00 Weight (Pounds): 150 Objective General Appearance: WD/WN, alert Neck: supple Cardiovascular: regular rhythm Respiratory/Chest: chest wall non-tender, lungs clear, normal breath sounds, no respiratory distress, no accessory muscle use Abdomen: normal bowel sounds, non tender, soft, no organomegaly, no mass Edema: no edema noted Arm (L), no edema noted Arm (R), no edema noted Leg (L), no edema noted Leg (R), no edema noted Pedal (L), no edema noted Pedal (R), no edema noted Generalized Objective bandage over sacrum ISIDORO BYRNE May 19, 2016 08:28
[2016-05-19] MEDS: Neosporin Oint 15gm TOPIC SCH ×2 (08:48→17:20)
[2016-05-19] MEDS: ANAGRELIDE 0.5 MG ORAL SCH ×2 (08:58→17:25)
[2016-05-19] MEDS: Memantine 10mg tab ORAL SCH (08:58)
[2016-05-19] MEDS: Carvedilol 6.25mg Tab ORAL SCH ×2 (08:58→20:45)
[2016-05-19] MEDS: metFORMIN 500mg tab ORAL SCH ×2 (08:58→17:25)
[2016-05-19] MEDS: Heparin 5000 units/ml inj SUBQ SCH ×2 (08:59→20:47)
[2016-05-19] MEDS: Lisinopril 20mg tab ORAL SCH (08:59)
--- NOTE | 2016-05-19 11:37 | Infectious Diseases Prog Note ---
"Assessment/Plan Assessment/Plan antibiotics : none A 1. 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 CVA 5. DM 6. HTN P 1. observe off antibiotics 2. d/c planned Subjective ROS Limited/Unobtainable: Yes Allergies: Coded Allergies: HYDROMORPHONE (Verified Allergy, Unknown, 09/21/14) MORPHINE (Unverified Allergy, Unknown, 04/27/16) Objective Vital Signs Last 24 Hour Vital Signs Date Time Temp Pulse Resp B/P Pulse Ox O2 Delivery O2 Flow Rate FiO2 05/19/16 08:59 147/86 05/19/16 08:59 70 147/86 05/19/16 08:58 70 147/86 05/19/16 08:23 97.8 70 20 147/86 96 Room Air 05/19/16 04:00 98.1 70 18 146/78 95 Room Air 05/18/16 23:52 97.8 72 18 149/64 94 Room Air 05/18/16 21:27 76 137/54 05/18/16 21:26 76 137/54 05/18/16 20:00 97.8 76 18 137/54 97 Room Air 05/18/16 19:30 97 Room Air 05/18/16 19:30 Room Air 05/18/16 16:10 98.2 75 20 134/62 98 Room Air 05/18/16 12:44 97.7 80 19 114/54 96 Room Air Height (Feet): 5 Height (Inches): 6.00 Weight (Pounds): 150 Respiratory/Chest: lungs clear Cardiovascular: normal rate, regular rhythm, no gallop/murmur Abdomen: soft, non tender Extremities: no edema ALESSIO KRISHNAMURTHY May 19, 2016 11:37"
[2016-05-19 11:50] VITALS: BP 142/78
[2016-05-19 16:00] VITALS: BP 119/91
[2016-05-19 20:13] VITALS: BP 154/89
[2016-05-19] MEDS: Atorvastatin 20mg tab ORAL SCH (20:45)
[2016-05-19 23:59] VITALS: BP 159/80
[2016-05-20 04:00] VITALS: BP 162/75
[2016-05-20] MEDS: Lactobacillus-GG tablet ORAL SCH ×3 (06:09→21:12)
[2016-05-20] MEDS: Levothyroxine 25mcg tab ORAL SCH (06:11)
[2016-05-20] MEDS: NovoLOG Insulin Flexpen SUBQ SCH ×4 (06:25→21:14)
[2016-05-20 08:15] VITALS: BP 198/86
--- NOTE | 2016-05-20 08:57 | General Progress Note ---
Assessment/Plan Problem List: (1) Hyperglycemia ICD Codes: R73.9 - Hyperglycemia SNOMED: 70340433 (2) Altered mental status ICD Codes: R41.82 - Altered mental status SNOMED: 216786877 Qualifiers: Qualified Codes: R41.82 - Altered mental status, unspecified (3) Sepsis ICD Codes: A41.9 - Sepsis SNOMED: 24873943 (4) Altered mental status ICD Codes: R41.82 - Altered mental status, unspecified SNOMED: 857049597 Qualifiers: Qualified Codes: R41.0 - Disorientation, unspecified (5) Stroke ICD Codes: I63.9 - Stroke SNOMED: 322759805 Qualifiers: (6) Hypothyroid ICD Codes: E03.9 - Hypothyroid SNOMED: 10344905 Qualifiers: Qualified Codes: E03.9 - Hypothyroidism, unspecified (7) Decubitus ulcer, stage 4 with infection ICD Codes: L89.94 - Pressure ulcer of unspecified site, stage 4 SNOMED: 7081884, 584733384 Status: stable, progressing Assessment/Plan wound care/dressing changes per surgery abx per id monitor bs antiplt rx dvt/stress ulcer prophylaxis frequent turning encourage pos. pain rx as needed monitor/labs plts titrate bp rx ?dc planning home vs snf. 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 family may take pt home. they are currently interviewing 24hr caregivers Subjective ROS Limited/Unobtainable: No Constitutional: Reports: malaise, weakness HEENT: Reports: no symptoms Cardiovascular: Reports: no symptoms Respiratory: Reports: no symptoms Gastrointestinal/Abdominal: Reports: no symptoms Genitourinary: Reports: no symptoms Neurologic/Psychiatric: Reports: pre-existing deficit Endocrine: Reports: no symptoms Hematologic/Lymphatic: Reports: no symptoms Allergies: Coded Allergies: HYDROMORPHONE (Verified Allergy, Unknown, 09/21/14) MORPHINE (Unverified Allergy, Unknown, 04/27/16) All Systems: reviewed and negative except above Subjective no events. bp trending up. denies pain or sob. Objective Last 24 Hour Vital Signs Date Time Temp Pulse Resp B/P Pulse Ox O2 Delivery O2 Flow Rate FiO2 05/20/16 08:15 96.8 68 18 198/86 99 Room Air 05/20/16 04:00 98.8 63 20 162/75 98 Room Air 05/19/16 23:59 97.5 68 20 159/80 95 Room Air 05/19/16 20:45 91 154/89 05/19/16 20:45 91 154/89 05/19/16 20:13 97.2 91 20 154/89 97 Room Air 05/19/16 16:00 97.7 78 20 119/91 97 Room Air 05/19/16 11:50 98.0 75 20 142/78 96 Room Air 05/19/16 08:59 147/86 05/19/16 08:59 70 147/86 05/19/16 08:58 70 147/86 Intake and Output 05/19/16 05/20/16 19:00 07:00 Intake Total 1080 ml 550 ml Output Total 800 ml 850 ml Balance 280 ml -300 ml Intake Oral 480 ml 400 ml IV Total 600 ml 150 ml Output Urine Total 800 ml 850 ml # Voids 1 Height (Feet): 5 Height (Inches): 6.00 Weight (Pounds): 150 Objective General Appearance: WD/WN, alert Neck: supple Cardiovascular: regular rhythm Respiratory/Chest: chest wall non-tender, lungs clear, normal breath sounds, no respiratory distress, no accessory muscle use Abdomen: normal bowel sounds, non tender, soft, no organomegaly, no mass Edema: no edema noted Arm (L), no edema noted Arm (R), no edema noted Leg (L), no edema noted Leg (R), no edema noted Pedal (L), no edema noted Pedal (R), no edema noted Generalized Objective bandage over sacrum ISIDORO BYRNE May 20, 2016 08:57
[2016-05-20] MEDS ORDERED: HydrALAZINE 25mg tab ORAL PRN (09:00)
[2016-05-20 09:20] VITALS: BP 147/68
[2016-05-20] MEDS: Heparin 5000 units/ml inj SUBQ SCH ×2 (09:29→21:14)
[2016-05-20] MEDS: Memantine 10mg tab ORAL SCH (09:38)
[2016-05-20] MEDS: Carvedilol 6.25mg Tab ORAL SCH ×2 (09:38→21:12)
[2016-05-20] MEDS: metFORMIN 500mg tab ORAL SCH ×2 (09:38→17:49)
[2016-05-20] MEDS: Lisinopril 20mg tab ORAL SCH (09:40)
[2016-05-20] MEDS: Neosporin Oint 15gm TOPIC SCH ×2 (09:40→17:49)
[2016-05-20] MEDS: ANAGRELIDE 0.5 MG ORAL SCH ×2 (11:27→17:49)
[2016-05-20 11:47] VITALS: BP 140/58
[2016-05-20] MEDS ORDERED: Tubing IV Secondary IV ONE (13:06)
[2016-05-20 16:00] VITALS: BP 109/57
[2016-05-20 19:53] VITALS: BP 131/55
[2016-05-20] MEDS: Atorvastatin 20mg tab ORAL SCH (21:12)
[2016-05-21 00:08] VITALS: BP 112/63
[2016-05-21 04:00] VITALS: BP 130/63
[2016-05-21] MEDS: Lactobacillus-GG tablet ORAL SCH ×3 (06:24→21:39)
[2016-05-21] MEDS: NovoLOG Insulin Flexpen SUBQ SCH ×4 (06:25→21:49)
[2016-05-21] MEDS: Levothyroxine 25mcg tab ORAL SCH (06:25)
[2016-05-21 08:00] VITALS: BP 152/69
[2016-05-21] MEDS: Heparin 5000 units/ml inj SUBQ SCH ×2 (08:43→21:50)
[2016-05-21] MEDS: Memantine 10mg tab ORAL SCH (08:45)
[2016-05-21] MEDS: Carvedilol 6.25mg Tab ORAL SCH ×2 (08:45→21:37)
[2016-05-21] MEDS: ANAGRELIDE 0.5 MG ORAL SCH ×2 (08:45→17:09)
[2016-05-21] MEDS: metFORMIN 500mg tab ORAL SCH ×2 (08:45→17:08)
[2016-05-21] MEDS: Lisinopril 20mg tab ORAL SCH (08:46)
[2016-05-21] MEDS: Neosporin Oint 15gm TOPIC SCH ×2 (08:46→17:14)
--- NOTE | 2016-05-21 08:48 | General Progress Note ---
Assessment/Plan Problem List: (1) Hyperglycemia ICD Codes: R73.9 - Hyperglycemia SNOMED: 78102930 (2) Altered mental status ICD Codes: R41.82 - Altered mental status SNOMED: 047678477 Qualifiers: Qualified Codes: R41.82 - Altered mental status, unspecified (3) Sepsis ICD Codes: A41.9 - Sepsis SNOMED: 09732130 (4) Altered mental status ICD Codes: R41.82 - Altered mental status, unspecified SNOMED: 519629946 Qualifiers: Qualified Codes: R41.0 - Disorientation, unspecified (5) Stroke ICD Codes: I63.9 - Stroke SNOMED: 769205793 Qualifiers: (6) Hypothyroid ICD Codes: E03.9 - Hypothyroid SNOMED: 82908483 Qualifiers: Qualified Codes: E03.9 - Hypothyroidism, unspecified (7) Decubitus ulcer, stage 4 with infection ICD Codes: L89.94 - Pressure ulcer of unspecified site, stage 4 SNOMED: 9907833, 776652211 Status: stable, progressing Assessment/Plan wound care/dressing changes per surgery abx per id monitor bs antiplt rx dvt/stress ulcer prophylaxis frequent turning encourage pos. pain rx as needed monitor/labs plts titrate bp rx ?dc planning home vs snf. 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 family may take pt home. they are currently interviewing 24hr caregivers Subjective ROS Limited/Unobtainable: No Constitutional: Reports: malaise, weakness HEENT: Reports: no symptoms Cardiovascular: Reports: no symptoms Respiratory: Reports: no symptoms Gastrointestinal/Abdominal: Reports: no symptoms Genitourinary: Reports: no symptoms Neurologic/Psychiatric: Reports: pre-existing deficit Endocrine: Reports: no symptoms Hematologic/Lymphatic: Reports: no symptoms Allergies: Coded Allergies: HYDROMORPHONE (Verified Allergy, Unknown, 09/21/14) MORPHINE (Unverified Allergy, Unknown, 04/27/16) All Systems: reviewed and negative except above Subjective no events. bp trending up. denies pain or sob. Objective Last 24 Hour Vital Signs Date Time Temp Pulse Resp B/P Pulse Ox O2 Delivery O2 Flow Rate FiO2 05/21/16 04:00 97.2 60 18 130/63 100 Room Air 05/21/16 00:08 97.3 64 18 112/63 96 Room Air 05/20/16 21:12 77 131/55 05/20/16 21:12 77 131/55 05/20/16 19:53 98.7 77 20 131/55 96 Room Air 05/20/16 16:00 98.6 66 20 109/57 99 Room Air 05/20/16 11:47 96.4 68 18 140/58 97 Room Air 05/20/16 09:40 147/68 05/20/16 09:39 66 147/68 05/20/16 09:38 66 147/68 05/20/16 09:20 66 147/68 Intake and Output 05/20/16 05/21/16 19:00 07:00 Intake Total 820 ml 370 ml Output Total 1750 ml 350 ml Balance -930 ml 20 ml Intake Oral 720 ml 370 ml IV Total 100 ml Output Urine Total 1750 ml 350 ml # Voids 1 # Bowel Movements 2 Height (Feet): 5 Height (Inches): 6.00 Weight (Pounds): 150 Objective General Appearance: WD/WN, alert Neck: supple Cardiovascular: regular rhythm Respiratory/Chest: chest wall non-tender, lungs clear, normal breath sounds, no respiratory distress, no accessory muscle use Abdomen: normal bowel sounds, non tender, soft, no organomegaly, no mass Edema: no edema noted Arm (L), no edema noted Arm (R), no edema noted Leg (L), no edema noted Leg (R), no edema noted Pedal (L), no edema noted Pedal (R), no edema noted Generalized Objective bandage over sacrum ISIDORO BYRNE May 21, 2016 08:48
[2016-05-21 09:41] LABS: MEAN CORPUSCULAR HEMOGLOBIN 25.6 PG (27.0-31.0); MEAN CORPUSCULAR HGB CONC 31.2 G/DL (32.0-36.0); MEAN CORPUSCULAR VOLUME 82 FL (80-99); MEAN PLATELET VOLUME 7.9 FL (6.5-10.1); PLATELET COUNT 820 K/UL (150-450); RED BLOOD COUNT 4.37 M/UL (4.20-5.40); RED CELL DISTRIBUTION WIDTH 17.5 % (11.6-14.8); WHITE BLOOD COUNT 10.7 K/UL (4.8-10.8)
[2016-05-21 09:56] LABS: ALANINE AMINOTRANSFERASE 11 U/L (3-33); ALBUMIN/GLOBULIN RATIO 0.9 (1.0-2.7); ANION GAP 13 (5-15); ASPARTATE AMINO TRANSFERASE 19 U/L (5-40); CALCIUM 9.7 mg/dL (8.6-10.2); CARBON DIOXIDE 26 mEQ/L (20-30); CHLORIDE 95 mEQ/L (98-107); CREATININE 0.8 mg/dL (0.5-0.9); HEMOLYSIS 3; POTASSIUM 4.9 mEQ/L (3.4-4.9); SODIUM 134 mEQ/L (135-145); TOTAL PROTEIN 6.9 g/dL (6.6-8.7)
[2016-05-21 10:14] LABS: ANISOCYTOSIS 2+; BAND NEUTROPHILS % (MANUAL) 4 % (0-8); BASOPHILS % (MANUAL) 0 % (0-2); EOSINOPHILS % (MANUAL) 2 % (0-3); LYMPHOCYTES % (MANUAL) 26 % (20-45); NEUTROPHILS % (MANUAL) 62 % (45-75); PLATELET ESTIMATE INCREASED; PLATELET MORPHOLOGY NORMAL; TOTAL CELLS COUNTED 100
[2016-05-21 10:15] LABS: MICROCYTES OCCASIONAL; POIKILOCYTOSIS 1+; TEAR DROP CELLS OCCASIONAL
--- NOTE | 2016-05-21 11:50 | Infectious Diseases Prog Note ---
Assessment/Plan Assessment/Plan A; infected sacral ulcer s/p Rx Wound dehiscence DM HPN MRSA & VRE colonization P: observe off antibiotic Waiting for discharge Subjective ROS Limited/Unobtainable: Yes Allergies: Coded Allergies: HYDROMORPHONE (Verified Allergy, Unknown, 09/21/14) MORPHINE (Unverified Allergy, Unknown, 04/27/16) Objective Vital Signs Last 24 Hour Vital Signs Date Time Temp Pulse Resp B/P Pulse Ox O2 Delivery O2 Flow Rate FiO2 05/21/16 08:46 130/62 05/21/16 08:46 72 130/62 05/21/16 08:45 72 130/62 05/21/16 08:00 97.2 67 18 152/69 97 Room Air 05/21/16 04:00 97.2 60 18 130/63 100 Room Air 05/21/16 00:08 97.3 64 18 112/63 96 Room Air 05/20/16 21:12 77 131/55 05/20/16 21:12 77 131/55 05/20/16 19:53 98.7 77 20 131/55 96 Room Air 05/20/16 16:00 98.6 66 20 109/57 99 Room Air Height (Feet): 5 Height (Inches): 6.00 Weight (Pounds): 150 General Appearance: no acute distress HEENT: mucous membranes moist Respiratory/Chest: lungs clear Cardiovascular: normal rate Abdomen: soft, non tender Extremities: no edema Skin: ulcers Neurologic/Psychiatric: other - sleeping Laboratory Tests Test 05/21/16 09:15 White Blood Count 10.7 K/UL (4.8-10.8) Red Blood Count 4.37 M/UL (4.20-5.40) Hemoglobin 11.2 G/DL (12.0-16.0) L Hematocrit 35.9 % (37.0-47.0) L Mean Corpuscular Volume 82 FL (80-99) Mean Corpuscular Hemoglobin 25.6 PG (27.0-31.0) L Mean Corpuscular Hemoglobin Concent 31.2 G/DL (32.0-36.0) L Red Cell Distribution Width 17.5 % (11.6-14.8) H Platelet Count 820 K/UL (150-450) H Mean Platelet Volume 7.9 FL (6.5-10.1) Neutrophils (%) (Auto) % (45.0-75.0) Lymphocytes (%) (Auto) % (20.0-45.0) Monocytes (%) (Auto) % (1.0-10.0) Eosinophils (%) (Auto) % (0.0-3.0) Basophils (%) (Auto) % (0.0-2.0) Differential Total Cells Counted 100 Neutrophils % (Manual) 62 % (45-75) Lymphocytes % (Manual) 26 % (20-45) Monocytes % (Manual) 6 % (1-10) Eosinophils % (Manual) 2 % (0-3) Basophils % (Manual) 0 % (0-2) Band Neutrophils 4 % (0-8) Platelet Estimate Increased H Platelet Morphology Normal Giant Platelets Occasional Poikilocytosis 1+ Anisocytosis 2+ Microcytosis Occasional Tear Drop Cells Occasional Sodium Level 134 mEQ/L (135-145) L Potassium Level 4.9 mEQ/L (3.4-4.9) Chloride Level 95 mEQ/L (98-107) L Carbon Dioxide Level 26 mEQ/L (20-30) Anion Gap 13 (5-15) Blood Urea Nitrogen 24 mg/dL (7-23) H Creatinine 0.8 mg/dL (0.5-0.9) Estimat Glomerular Filtration Rate mL/min (>60) Glucose Level 242 mg/dL (74-106) H Calcium Level 9.7 mg/dL (8.6-10.2) Total Bilirubin 0.3 mg/dL (0.0-1.2) Aspartate Amino Transf (AST/SGOT) 19 U/L (5-40) Alanine Aminotransferase (ALT/SGPT) 11 U/L (3-33) Alkaline Phosphatase 44 U/L (35-104) Total Protein 6.9 g/dL (6.6-8.7) Albumin 3.3 g/dL (3.5-5.2) L Globulin 3.6 g/dL Albumin/Globulin Ratio 0.9 (1.0-2.7) L Current Medications Medications (Trade) Dose Ordered Sig/Rupert Route PRN Reason Start Time Stop Time Status Last Admin Dose Admin Acetaminophen (Tylenol) 650 mg Q6H PRN ORAL Mild Pain/Temp > 100.5 04/27/16 19:30 05/27/16 19:29 Amlodipine Besylate (Norvasc) 5 mg Q12HR ORAL 04/27/16 21:00 05/27/16 20:59 05/21/16 08:46 Anagrelide HCl (Agrylin) 1 mg TWICE A DAY ORAL 05/16/16 09:00 06/15/16 08:59 05/21/16 08:45 Atorvastatin Calcium (Lipitor) 20 mg BEDTIME ORAL 04/27/16 21:00 05/27/16 20:59 05/20/16 21:12 Carvedilol (Coreg) 6.25 mg EVERY 12 HOURS ORAL 05/17/16 09:00 06/16/16 08:59 05/21/16 08:45 Dextrose (Dextrose 50%) STAT PRN IV Hypoglycemia 04/27/16 20:00 05/27/16 19:59 Ferrous Sulfate (Feosol) 325 mg THREE TIMES A DAY ORAL 04/28/16 09:00 05/28/16 08:59 05/21/16 08:45 Heparin Sodium (Porcine) (Heparin 5000 units/ml) 5,000 units EVERY 12 HOURS SUBQ 04/27/16 21:00 05/27/16 20:59 05/21/16 08:43 Hydralazine HCl (Apresoline) 25 mg Q6H PRN ORAL prn sbp >160 05/20/16 09:00 06/19/16 08:59 Insulin Aspart (NovoLOG) BEFORE MEALS AND HS SUBQ 04/27/16 21:00 05/27/16 20:59 05/20/16 21:14 Lactobacillus Acidophilus (Culturelle) 1 tab Q8HR ORAL 04/27/16 22:00 05/27/16 21:59 05/21/16 06:24 Levothyroxine Sodium (Synthroid) 25 mcg DAILY@0630 ORAL 05/01/16 06:30 05/31/16 06:29 05/21/16 06:25 Levothyroxine Sodium (Synthroid) 150 mcg DAILY@0630 ORAL 05/01/16 06:30 05/31/16 06:29 05/21/16 06:24 Lisinopril (Prinivil) 40 mg DAILY ORAL 05/02/16 09:00 06/01/16 08:59 05/21/16 08:46 Memantine (Namenda) 10 mg DAILY ORAL 04/28/16 09:00 05/28/16 08:59 05/21/16 08:45 Metformin HCl (Glucophage) 1,000 mg BID ORAL 04/28/16 09:00 05/28/16 08:59 05/21/16 08:45 Neomycin/ Polymyxin/ Bacitracin (Neosporin Oint 15gm) 1 applic TWICE A DAY TOPIC 05/02/16 18:00 06/01/16 17:59 05/21/16 08:46 EFRAIN GARCIA May 21, 2016 11:50
[2016-05-21 12:00] VITALS: BP 117/42
[2016-05-21 16:00] VITALS: BP 115/56
[2016-05-21 20:00] VITALS: BP 103/46
[2016-05-21] MEDS: Atorvastatin 20mg tab ORAL SCH (21:39)
[2016-05-22] VITALS: BP 119/61
[2016-05-22 04:00] VITALS: BP 152/68
--- NOTE | 2016-05-22 04:37 | Progress Note ---
DATE: 05/21/2016 CARDIOLOGY PROGRESS NOTE SUBJECTIVE: Blood pressure range is stable. Overall, it has been trending upwards earlier, but has improved. The patient is without chest pain or shortness of breath. OBJECTIVE: Exam without signs of volume overload or acute infection and wound is healing. The patient's disposition is still unclear. PLAN: At this time, no recommended changes in cardiovascular regimen. We will followup laboratory studies and further recommendations. We will follow including adjustments of anti-platelet therapy based on thrombocytosis. Darius Duran M.D. DR: FREDERICK JOB#: [id number] CC:
[2016-05-22] MEDS: NovoLOG Insulin Flexpen SUBQ SCH ×4 (06:30→21:15)
[2016-05-22] MEDS: Levothyroxine 25mcg tab ORAL SCH (06:42)
[2016-05-22] MEDS: Lactobacillus-GG tablet ORAL SCH ×3 (06:42→21:12)
--- NOTE | 2016-05-22 07:54 | General Progress Note ---
Assessment/Plan Problem List: (1) Hyperglycemia ICD Codes: R73.9 - Hyperglycemia SNOMED: 92264563 (2) Altered mental status ICD Codes: R41.82 - Altered mental status SNOMED: 979791939 Qualifiers: Qualified Codes: R41.82 - Altered mental status, unspecified (3) Sepsis ICD Codes: A41.9 - Sepsis SNOMED: 89189430 (4) Altered mental status ICD Codes: R41.82 - Altered mental status, unspecified SNOMED: 381178913 Qualifiers: Qualified Codes: R41.0 - Disorientation, unspecified (5) Stroke ICD Codes: I63.9 - Stroke SNOMED: 050187600 Qualifiers: (6) Hypothyroid ICD Codes: E03.9 - Hypothyroid SNOMED: 51923929 Qualifiers: Qualified Codes: E03.9 - Hypothyroidism, unspecified (7) Decubitus ulcer, stage 4 with infection ICD Codes: L89.94 - Pressure ulcer of unspecified site, stage 4 SNOMED: 3681933, 507367858 Status: stable, progressing Assessment/Plan wound care/dressing changes per surgery abx per id monitor bs antiplt rx dvt/stress ulcer prophylaxis frequent turning encourage pos. pain rx as needed monitor/labs plts titrate bp rx ?dc planning home vs snf. home health care case manager looking for bed. family may take pt home. they are currently interviewing 24hr caregivers Subjective ROS Limited/Unobtainable: No Constitutional: Reports: malaise, weakness HEENT: Reports: no symptoms Cardiovascular: Reports: no symptoms Respiratory: Reports: no symptoms Gastrointestinal/Abdominal: Reports: no symptoms Genitourinary: Reports: no symptoms Neurologic/Psychiatric: Reports: pre-existing deficit Endocrine: Reports: no symptoms Hematologic/Lymphatic: Reports: no symptoms Allergies: Coded Allergies: HYDROMORPHONE (Verified Allergy, Unknown, 09/21/14) MORPHINE (Unverified Allergy, Unknown, 04/27/16) All Systems: reviewed and negative except above Subjective no events. bp trending up. denies pain or sob. labs noted. wbc trending down Objective Last 24 Hour Vital Signs Date Time Temp Pulse Resp B/P Pulse Ox O2 Delivery O2 Flow Rate FiO2 05/22/16 04:00 97.7 78 18 152/68 94 Room Air 05/22/16 00:00 97.9 79 18 119/61 96 Room Air 05/21/16 21:37 86 103/46 05/21/16 21:37 86 103/46 05/21/16 20:00 98.2 86 18 103/46 95 Room Air 05/21/16 16:00 96.6 68 18 115/56 96 Room Air 05/21/16 12:00 97.0 72 18 117/42 98 Room Air 05/21/16 08:46 130/62 05/21/16 08:46 72 130/62 05/21/16 08:45 72 130/62 05/21/16 08:00 97.2 67 18 152/69 97 Room Air Intake and Output 05/21/16 05/22/16 19:00 07:00 Intake Total 1080 ml 300 ml Output Total 300 ml 600 ml Balance 780 ml -300 ml Intake Oral 1080 ml 300 ml Output Urine Total 300 ml 600 ml # Voids 1 # Bowel Movements 1 Laboratory Tests 05/21/16 09:15: White Blood Count 10.7, Red Blood Count 4.37, Hemoglobin 11.2L, Hematocrit 35.9L , Mean Corpuscular Volume 82, Mean Corpuscular Hemoglobin 25.6L, Mean Corpuscular Hemoglobin Concent 31.2L, Red Cell Distribution Width 17.5H, Platelet Count 820H, Mean Platelet Volume 7.9, Neutrophils (%) (Auto) , Lymphocytes (%) (Auto) , Monocytes (%) (Auto) , Eosinophils (%) (Auto) , Basophils (%) (Auto) , Differential Total Cells Counted 100, Neutrophils % ( Manual) 62, Lymphocytes % (Manual) 26, Monocytes % (Manual) 6, Eosinophils % ( Manual) 2, Basophils % (Manual) 0, Band Neutrophils 4, Platelet Estimate IncreasedH, Platelet Morphology Normal, Giant Platelets Occasional, Poikilocytosis 1+, Anisocytosis 2+, Microcytosis Occasional, Tear Drop Cells Occasional, Sodium Level 134L, Potassium Level 4.9, Chloride Level 95L, Carbon Dioxide Level 26, Anion Gap 13, Blood Urea Nitrogen 24H, Creatinine 0.8, Estimat Glomerular Filtration Rate , Glucose Level 242H, Calcium Level 9.7, Total Bilirubin 0.3, Aspartate Amino Transf (AST/SGOT) 19, Alanine Aminotransferase (ALT/SGPT) 11, Alkaline Phosphatase 44, Total Protein 6.9, Albumin 3.3L, Globulin 3.6, Albumin/Globulin Ratio 0.9L Height (Feet): 5 Height (Inches): 6.00 Weight (Pounds): 150 Objective General Appearance: WD/WN, alert Neck: supple Cardiovascular: regular rhythm Respiratory/Chest: chest wall non-tender, lungs clear, normal breath sounds, no respiratory distress, no accessory muscle use Abdomen: normal bowel sounds, non tender, soft, no organomegaly, no mass Edema: no edema noted Arm (L), no edema noted Arm (R), no edema noted Leg (L), no edema noted Leg (R), no edema noted Pedal (L), no edema noted Pedal (R), no edema noted Generalized Objective bandage over sacrum ISIDORO BYRNE May 22, 2016 07:54
[2016-05-22 08:00] VITALS: BP 142/58
[2016-05-22] MEDS: ANAGRELIDE 0.5 MG ORAL SCH ×2 (09:29→19:07)
[2016-05-22] MEDS: Carvedilol 6.25mg Tab ORAL SCH ×2 (09:29→21:12)
[2016-05-22] MEDS: Memantine 10mg tab ORAL SCH (09:29)
[2016-05-22] MEDS: Lisinopril 20mg tab ORAL SCH (09:29)
[2016-05-22] MEDS: metFORMIN 500mg tab ORAL SCH ×2 (09:30→17:55)
[2016-05-22] MEDS: Heparin 5000 units/ml inj SUBQ SCH ×2 (09:31→21:15)
[2016-05-22] MEDS: Neosporin Oint 15gm TOPIC SCH ×2 (09:31→17:45)
[2016-05-22] MEDS: Mag Plus Protein 133mg Tab ORAL SCH ×3 (09:53→17:55)
--- NOTE | 2016-05-22 11:29 | Infectious Diseases Prog Note ---
"Assessment/Plan Assessment/Plan antibiotics : none A 1. 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 CVA 5. DM 6. HTN P 1. observe off antibiotics 2. d/c planned Subjective ROS Limited/Unobtainable: Yes Allergies: Coded Allergies: HYDROMORPHONE (Verified Allergy, Unknown, 09/21/14) MORPHINE (Unverified Allergy, Unknown, 04/27/16) Objective Vital Signs Last 24 Hour Vital Signs Date Time Temp Pulse Resp B/P Pulse Ox O2 Delivery O2 Flow Rate FiO2 05/22/16 09:30 87 142/58 05/22/16 09:29 87 142/58 05/22/16 09:29 142/58 05/22/16 08:00 97.0 87 18 142/58 96 Room Air 05/22/16 04:00 97.7 78 18 152/68 94 Room Air 05/22/16 00:00 97.9 79 18 119/61 96 Room Air 05/21/16 21:37 86 103/46 05/21/16 21:37 86 103/46 05/21/16 20:00 98.2 86 18 103/46 95 Room Air 05/21/16 16:00 96.6 68 18 115/56 96 Room Air 05/21/16 12:00 97.0 72 18 117/42 98 Room Air Height (Feet): 5 Height (Inches): 6.00 Weight (Pounds): 150 Respiratory/Chest: lungs clear Cardiovascular: normal rate, regular rhythm, no gallop/murmur Abdomen: soft, non tender Extremities: no edema ALESSIO KRISHNAMURTHY May 22, 2016 11:29"
[2016-05-22 12:00] VITALS: BP 124/57
--- NOTE | 2016-05-22 15:47 | Wound Nurse Progress Note ---
Wound RN Progress Note Wound Consult Wound vac applied as ordered by MD on sacral suture dehiscence area that is 6cm x 3cm x 2.5cm on right side of the skin flap. The whole flap is detached from the underlaying tissue. flap is viable. No complaint of pain nor discomfort noted. will cont to monitor and assess wound vac Q shift. ISRAEL SULLIVAN RN May 22, 2016 15:47
[2016-05-22 16:05] VITALS: BP 114/52
[2016-05-22 19:47] VITALS: BP 124/55
[2016-05-22] MEDS: Atorvastatin 20mg tab ORAL SCH (21:11)
[2016-05-23] VITALS (7 sets, daily range): BP systolic 116–166; BP diastolic 53–85
--- NOTE | 2016-05-23 04:48 | Progress Note ---
DATE: 05/22/2016 CARDIOLOGY PROGRESS NOTE SUBJECTIVE: The patient's condition largely unchanged. She continues with postop wound care. Blood pressure parameters are stable. No new laboratories obtained today. OBJECTIVE: NECK: Supple. LUNGS: Clear. CARDIAC: Regular. Normal S1 and S2. ABDOMEN: Soft. EXTREMITIES: No edema. IMPRESSION: 1. Essential thrombocytosis. 2. Status post flap revision decubitus. 3. Type 2 diabetes mellitus. 4. Cerebrovascular disease with dementia. 5. Hypertensive heart disease. 6. Hypomagnesemia. PLAN: 1. Therapy updated. 2. Repeat . 3. Followup platelet count and continue anagrelide at this time. Darius Duran M.D. DR: FREDERICK JOB#: [id number] CC:
[2016-05-23] MEDS: Lactobacillus-GG tablet ORAL SCH ×3 (05:44→21:34)
[2016-05-23] MEDS: NovoLOG Insulin Flexpen SUBQ SCH ×4 (05:46→21:34)
[2016-05-23] MEDS: Levothyroxine 25mcg tab ORAL SCH (05:46)
[2016-05-23] MEDS: Lisinopril 20mg tab ORAL SCH (08:12)
[2016-05-23] MEDS: Carvedilol 6.25mg Tab ORAL SCH ×2 (08:12→21:35)
[2016-05-23] MEDS: Heparin 5000 units/ml inj SUBQ SCH ×2 (08:13→21:32)
[2016-05-23] MEDS: Mag Plus Protein 133mg Tab ORAL SCH ×3 (08:14→18:43)
[2016-05-23] MEDS: metFORMIN 500mg tab ORAL SCH ×2 (08:15→18:43)
[2016-05-23] MEDS: ANAGRELIDE 0.5 MG ORAL SCH ×2 (08:15→18:43)
[2016-05-23] MEDS: Memantine 10mg tab ORAL SCH (08:15)
--- NOTE | 2016-05-23 09:17 | General Progress Note ---
Assessment/Plan Problem List: (1) Hyperglycemia ICD Codes: R73.9 - Hyperglycemia SNOMED: 76190896 (2) Altered mental status ICD Codes: R41.82 - Altered mental status SNOMED: 716168523 Qualifiers: Qualified Codes: R41.82 - Altered mental status, unspecified (3) Sepsis ICD Codes: A41.9 - Sepsis SNOMED: 34298277 (4) Altered mental status ICD Codes: R41.82 - Altered mental status, unspecified SNOMED: 663415296 Qualifiers: Qualified Codes: R41.0 - Disorientation, unspecified (5) Stroke ICD Codes: I63.9 - Stroke SNOMED: 198030197 Qualifiers: (6) Hypothyroid ICD Codes: E03.9 - Hypothyroid SNOMED: 13122810 Qualifiers: Qualified Codes: E03.9 - Hypothyroidism, unspecified (7) Decubitus ulcer, stage 4 with infection ICD Codes: L89.94 - Pressure ulcer of unspecified site, stage 4 SNOMED: 3430409, 904949974 Status: stable, progressing Assessment/Plan wound care/dressing changes per surgery abx per id monitor bs antiplt rx dvt/stress ulcer prophylaxis frequent turning encourage pos. pain rx as needed monitor/labs plts titrate bp rx ?dc planning home vs snf. foster care case manager looking for bed. family may take pt home. they are currently interviewing 24hr caregivers Subjective ROS Limited/Unobtainable: No Constitutional: Reports: no symptoms HEENT: Reports: no symptoms Cardiovascular: Reports: no symptoms Respiratory: Reports: no symptoms Gastrointestinal/Abdominal: Reports: no symptoms Genitourinary: Reports: no symptoms Neurologic/Psychiatric: Reports: pre-existing deficit Endocrine: Reports: no symptoms Hematologic/Lymphatic: Reports: anemia Allergies: Coded Allergies: HYDROMORPHONE (Verified Allergy, Unknown, 09/21/14) MORPHINE (Unverified Allergy, Unknown, 04/27/16) All Systems: reviewed and negative except above Subjective no events. labile bp. denies pain or sob. labs noted. wbc trending down and plts trending down. Objective Last 24 Hour Vital Signs Date Time Temp Pulse Resp B/P Pulse Ox O2 Delivery O2 Flow Rate FiO2 05/23/16 08:12 72 166/85 05/23/16 08:12 166/85 1/31/17 08:12 72 166/85 05/23/16 08:09 97.4 72 20 166/85 98 Room Air 05/23/16 04:00 97.6 76 18 124/66 96 Room Air 05/23/16 00:00 97.5 79 18 132/61 94 Room Air 05/22/16 21:12 81 124/55 05/22/16 21:12 81 124/55 05/22/16 19:47 99.1 81 20 124/55 95 Room Air 05/22/16 16:05 99.1 81 19 114/52 95 Room Air 05/22/16 12:00 96.8 82 18 124/57 93 Room Air 05/22/16 09:30 87 142/58 05/22/16 09:29 87 142/58 05/22/16 09:29 142/58 Intake and Output 05/22/16 05/23/16 19:00 07:00 Intake Total 840 ml 700 ml Output Total 700 ml 950 ml Balance 140 ml -250 ml Intake Oral 840 ml 700 ml Output Urine Total 700 ml 950 ml # Voids 1 # Bowel Movements 1 Height (Feet): 5 Height (Inches): 6.00 Weight (Pounds): 150 Objective General Appearance: WD/WN, alert Neck: supple Cardiovascular: regular rhythm Respiratory/Chest: chest wall non-tender, lungs clear, normal breath sounds, no respiratory distress, no accessory muscle use Abdomen: normal bowel sounds, non tender, soft, no organomegaly, no mass Edema: no edema noted Arm (L), no edema noted Arm (R), no edema noted Leg (L), no edema noted Leg (R), no edema noted Pedal (L), no edema noted Pedal (R), no edema noted Generalized Objective bandage over sacrum ISIDORO BYRNE May 23, 2016 09:17
--- NOTE | 2016-05-23 11:25 | Infectious Diseases Prog Note ---
"Assessment/Plan Assessment/Plan antibiotics : none A 1. 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 CVA 5. DM 6. HTN P 1. observe off antibiotics 2. d/c planned Subjective ROS Limited/Unobtainable: Yes Allergies: Coded Allergies: HYDROMORPHONE (Verified Allergy, Unknown, 09/21/14) MORPHINE (Unverified Allergy, Unknown, 04/27/16) Objective Vital Signs Last 24 Hour Vital Signs Date Time Temp Pulse Resp B/P Pulse Ox O2 Delivery O2 Flow Rate FiO2 05/23/16 08:12 72 166/85 05/23/16 08:12 166/85 05/23/16 08:12 72 166/85 05/23/16 08:09 97.4 72 20 166/85 98 Room Air 05/23/16 04:00 97.6 76 18 124/66 96 Room Air 05/23/16 00:00 97.5 79 18 132/61 94 Room Air 05/22/16 21:12 81 124/55 05/22/16 21:12 81 124/55 05/22/16 19:47 99.1 81 20 124/55 95 Room Air 05/22/16 16:05 99.1 81 19 114/52 95 Room Air 05/22/16 12:00 96.8 82 18 124/57 93 Room Air Height (Feet): 5 Height (Inches): 6.00 Weight (Pounds): 150 Respiratory/Chest: lungs clear Cardiovascular: normal rate, regular rhythm, no gallop/murmur Abdomen: soft, non tender Extremities: no edema ALESSIO KRISHNAMURTHY May 23, 2016 11:25"
[2016-05-23] MEDS: Atorvastatin 20mg tab ORAL SCH (21:34)
[2016-05-24 04:00] VITALS: BP 138/65
[2016-05-24] MEDS: Lactobacillus-GG tablet ORAL SCH ×3 (05:49→21:03)
[2016-05-24] MEDS: Levothyroxine 25mcg tab ORAL SCH (05:50)
[2016-05-24] MEDS: NovoLOG Insulin Flexpen SUBQ SCH ×4 (06:02→21:05)
--- NOTE | 2016-05-24 07:10 | Progress Note ---
DATE: 05/23/2016 CARDIOLOGY PROGRESS NOTE SUBJECTIVE: The patient is still in the hospital, pending disposition in a long-term facility of acceptance. Pain is controlled. Wound care is ongoing. Glucose management has been stabilizing. OBJECTIVE: VITAL SIGNS: Blood pressure 133/56, heart rate 73, respiratory rate 18, afebrile, and room air oxygen 94% to 98%. LUNGS: Clear. CARDIAC: Regular. ABDOMEN: Soft. EXTREMITIES: No edema. LABORATORY DATA: Laboratories pending. IMPRESSION: 1. Essential thrombocytosis, on anagrelide. 2. Skin dehiscence status post revision. 3. Hypertensive heart disease now with controlled blood pressure. 4. Cerebrovascular disease with multi-infarct dementia. 5. Hypothyroidism, on replacement therapy, thyroid. 6. Diabetes mellitus, on oral medications. PLAN: 1. Recheck platelet counts. 2. Continue current medications and wound care. 3. Awaiting disposition. Darius Duran M.D. DR: SARAI JOB#: [id number] CC:
--- NOTE | 2016-05-24 08:12 | General Progress Note ---
Assessment/Plan Problem List: (1) Hyperglycemia ICD Codes: R73.9 - Hyperglycemia SNOMED: 08420258 (2) Altered mental status ICD Codes: R41.82 - Altered mental status SNOMED: 685385780 Qualifiers: Qualified Codes: R41.82 - Altered mental status, unspecified (3) Sepsis ICD Codes: A41.9 - Sepsis SNOMED: 02010755 (4) Altered mental status ICD Codes: R41.82 - Altered mental status, unspecified SNOMED: 780306765 Qualifiers: Qualified Codes: R41.0 - Disorientation, unspecified (5) Stroke ICD Codes: I63.9 - Stroke SNOMED: 828543433 Qualifiers: (6) Hypothyroid ICD Codes: E03.9 - Hypothyroid SNOMED: 97207726 Qualifiers: Qualified Codes: E03.9 - Hypothyroidism, unspecified (7) Decubitus ulcer, stage 4 with infection ICD Codes: L89.94 - Pressure ulcer of unspecified site, stage 4 SNOMED: 6516166, 426721648 Status: stable Assessment/Plan wound care/dressing changes per surgery abx per id monitor bs antiplt rx dvt/stress ulcer prophylaxis frequent turning encourage pos. pain rx as needed monitor/labs plts titrate bp rx ?dc planning home vs snf. counseling case manager looking for bed. family may take pt home. they are currently interviewing 24hr caregivers Subjective ROS Limited/Unobtainable: No Constitutional: Reports: malaise, weakness HEENT: Reports: no symptoms Cardiovascular: Reports: no symptoms Respiratory: Reports: no symptoms Gastrointestinal/Abdominal: Reports: no symptoms Genitourinary: Reports: no symptoms Neurologic/Psychiatric: Reports: pre-existing deficit Endocrine: Reports: no symptoms Hematologic/Lymphatic: Reports: no symptoms Allergies: Coded Allergies: HYDROMORPHONE (Verified Allergy, Unknown, 09/21/14) MORPHINE (Unverified Allergy, Unknown, 04/27/16) All Systems: reviewed and negative except above Subjective no events. labile bp. denies pain or sob. labs noted. wbc trending down and plts trending down. Objective Last 24 Hour Vital Signs Date Time Temp Pulse Resp B/P Pulse Ox O2 Delivery O2 Flow Rate FiO2 05/24/16 04:00 97.9 71 18 138/65 96 Room Air 05/23/16 23:41 98.1 79 18 117/53 95 Room Air 05/23/16 21:37 73 133/56 05/23/16 21:35 73 133/56 05/23/16 20:00 97.9 73 18 133/56 94 Room Air 05/23/16 16:07 98.4 69 20 116/54 94 Room Air 05/23/16 11:53 98.0 72 20 116/55 98 Room Air 05/23/16 08:12 72 166/85 05/23/16 08:12 166/85 05/23/16 08:12 72 166/85 Intake and Output 05/23/16 05/24/16 18:59 06:59 Intake Total 960 ml Output Total 810 ml 450 ml Balance 150 ml -450 ml Intake Oral 960 ml Output Urine Total 800 ml 450 ml Other 10 ml # Bowel Movements 1 2 Height (Feet): 5 Height (Inches): 6.00 Weight (Pounds): 150 Objective General Appearance: WD/WN, alert Neck: supple Cardiovascular: regular rhythm Respiratory/Chest: chest wall non-tender, lungs clear, normal breath sounds, no respiratory distress, no accessory muscle use Abdomen: normal bowel sounds, non tender, soft, no organomegaly, no mass Edema: no edema noted Arm (L), no edema noted Arm (R), no edema noted Leg (L), no edema noted Leg (R), no edema noted Pedal (L), no edema noted Pedal (R), no edema noted Generalized Objective bandage over sacrum ISIDORO BYRNE May 24, 2016 08:12
[2016-05-24] MEDS: Mag Plus Protein 133mg Tab ORAL SCH ×3 (08:16→17:14)
[2016-05-24] MEDS: ANAGRELIDE 0.5 MG ORAL SCH ×2 (08:16→17:14)
[2016-05-24] MEDS: metFORMIN 500mg tab ORAL SCH ×2 (08:17→17:14)
[2016-05-24] MEDS: Carvedilol 6.25mg Tab ORAL SCH ×2 (08:18→21:02)
[2016-05-24] MEDS: Lisinopril 20mg tab ORAL SCH (08:19)
[2016-05-24] MEDS: Memantine 10mg tab ORAL SCH (08:21)
[2016-05-24] MEDS: Heparin 5000 units/ml inj SUBQ SCH ×2 (08:22→21:06)
[2016-05-24 08:43] VITALS: BP 147/66
[2016-05-24 11:01] LABS: BASOPHILS % (AUTO) 2.1 % (0.0-2.0); EOSINOPHILS % (AUTO) 1.8 % (0.0-3.0); MEAN CORPUSCULAR HEMOGLOBIN 25.5 PG (27.0-31.0); MEAN CORPUSCULAR HGB CONC 31.3 G/DL (32.0-36.0); MEAN CORPUSCULAR VOLUME 82 FL (80-99); MEAN PLATELET VOLUME 7.7 FL (6.5-10.1); MONOCYTES % (AUTO) 9.6 % (1.0-10.0); NEUTROPHILS % (AUTO) 52.6 % (45.0-75.0); PLATELET COUNT 603 K/UL (150-450); RED BLOOD COUNT 4.19 M/UL (4.20-5.40); RED CELL DISTRIBUTION WIDTH 17.1 % (11.6-14.8); WHITE BLOOD COUNT 10.8 K/UL (4.8-10.8)
[2016-05-24 11:23] LABS: ALANINE AMINOTRANSFERASE 11 U/L (3-33); ALBUMIN/GLOBULIN RATIO 0.8 (1.0-2.7); ANION GAP 15 (5-15); ASPARTATE AMINO TRANSFERASE 18 U/L (5-40); CARBON DIOXIDE 24 mEQ/L (20-30); CHLORIDE 97 mEQ/L (98-107); CREATININE 0.7 mg/dL (0.5-0.9); HEMOLYSIS 0; MAGNESIUM 1.4 mg/dL (1.7-2.5); POTASSIUM 4.7 mEQ/L (3.4-4.9); SODIUM 136 mEQ/L (135-145); TOTAL PROTEIN 6.8 g/dL (6.6-8.7)
--- NOTE | 2016-05-24 11:34 | Infectious Diseases Prog Note ---
Assessment/Plan Assessment/Plan A; infected sacral ulcer s/p Rx Wound dehiscence DM HPN MRSA & VRE colonization P: observe off antibiotic Waiting for discharge Subjective ROS Limited/Unobtainable: Yes Allergies: Coded Allergies: HYDROMORPHONE (Verified Allergy, Unknown, 09/21/14) MORPHINE (Unverified Allergy, Unknown, 04/27/16) Objective Vital Signs Last 24 Hour Vital Signs Date Time Temp Pulse Resp B/P Pulse Ox O2 Delivery O2 Flow Rate FiO2 05/24/16 08:43 97.3 78 19 147/66 97 Room Air 05/24/16 08:20 78 147/86 05/24/16 08:19 147/86 05/24/16 08:18 78 147/86 05/24/16 04:00 97.9 71 18 138/65 96 Room Air 05/23/16 23:41 98.1 79 18 117/53 95 Room Air 05/23/16 21:37 73 133/56 05/23/16 21:35 73 133/56 05/23/16 20:00 97.9 73 18 133/56 94 Room Air 05/23/16 16:07 98.4 69 20 116/54 94 Room Air 05/23/16 11:53 98.0 72 20 116/55 98 Room Air Height (Feet): 5 Height (Inches): 6.00 Weight (Pounds): 150 General Appearance: no acute distress HEENT: mucous membranes moist Respiratory/Chest: lungs clear Cardiovascular: normal rate Abdomen: soft, non tender Extremities: no edema Skin: ulcers, other - wound-vac Neurologic/Psychiatric: alert, responsive Laboratory Tests Test 05/24/16 10:30 White Blood Count 10.8 K/UL (4.8-10.8) Red Blood Count 4.19 M/UL (4.20-5.40) L Hemoglobin 10.7 G/DL (12.0-16.0) L Hematocrit 34.2 % (37.0-47.0) L Mean Corpuscular Volume 82 FL (80-99) Mean Corpuscular Hemoglobin 25.5 PG (27.0-31.0) L Mean Corpuscular Hemoglobin Concent 31.3 G/DL (32.0-36.0) L Red Cell Distribution Width 17.1 % (11.6-14.8) H Platelet Count 603 K/UL (150-450) H Mean Platelet Volume 7.7 FL (6.5-10.1) Neutrophils (%) (Auto) 52.6 % (45.0-75.0) Lymphocytes (%) (Auto) 34.0 % (20.0-45.0) Monocytes (%) (Auto) 9.6 % (1.0-10.0) Eosinophils (%) (Auto) 1.8 % (0.0-3.0) Basophils (%) (Auto) 2.1 % (0.0-2.0) H Sodium Level Pending Potassium Level Pending Chloride Level Pending Carbon Dioxide Level Pending Blood Urea Nitrogen Pending Creatinine Pending Estimat Glomerular Filtration Rate Pending Glucose Level Pending Calcium Level Pending Magnesium Level Pending Total Bilirubin Pending Aspartate Amino Transf (AST/SGOT) Pending Alanine Aminotransferase (ALT/SGPT) Pending Alkaline Phosphatase Pending Total Protein Pending Albumin Pending Globulin Pending Current Medications Medications (Trade) Dose Ordered Sig/Rupert Route PRN Reason Start Time Stop Time Status Last Admin Dose Admin Acetaminophen (Tylenol) 650 mg Q6H PRN ORAL Mild Pain/Temp > 100.5 04/27/16 19:30 05/27/16 19:29 Amino Acids/ Magnesium (Mg-Plus) 133 mg THREE TIMES A DAY ORAL 05/22/16 09:00 06/21/16 08:59 05/24/16 08:16 Amlodipine Besylate (Norvasc) 5 mg Q12HR ORAL 04/27/16 21:00 05/27/16 20:59 05/24/16 08:20 Anagrelide HCl (Agrylin) 1 mg TWICE A DAY ORAL 05/16/16 09:00 06/15/16 08:59 05/24/16 08:16 Atorvastatin Calcium (Lipitor) 20 mg BEDTIME ORAL 04/27/16 21:00 05/27/16 20:59 05/23/16 21:34 Carvedilol (Coreg) 6.25 mg EVERY 12 HOURS ORAL 05/17/16 09:00 06/16/16 08:59 05/24/16 08:18 Dextrose (Dextrose 50%) STAT PRN IV Hypoglycemia 04/27/16 20:00 05/27/16 19:59 Ferrous Sulfate (Feosol) 325 mg THREE TIMES A DAY ORAL 04/28/16 09:00 05/28/16 08:59 05/24/16 08:16 Heparin Sodium (Porcine) (Heparin 5000 units/ml) 5,000 units EVERY 12 HOURS SUBQ 04/27/16 21:00 05/27/16 20:59 05/24/16 08:22 Hydralazine HCl (Apresoline) 25 mg Q6H PRN ORAL prn sbp >160 05/20/16 09:00 06/19/16 08:59 Insulin Aspart (NovoLOG) BEFORE MEALS AND HS SUBQ 04/27/16 21:00 05/27/16 20:59 05/23/16 21:34 Lactobacillus Acidophilus (Culturelle) 1 tab Q8HR ORAL 04/27/16 22:00 05/27/16 21:59 05/24/16 05:49 Levothyroxine Sodium (Synthroid) 25 mcg DAILY@0630 ORAL 05/01/16 06:30 05/31/16 06:29 05/24/16 05:50 Levothyroxine Sodium (Synthroid) 150 mcg DAILY@0630 ORAL 05/01/16 06:30 05/31/16 06:29 05/24/16 05:49 Lisinopril (Prinivil) 40 mg DAILY ORAL 05/02/16 09:00 06/01/16 08:59 05/24/16 08:19 Memantine (Namenda) 10 mg DAILY ORAL 04/28/16 09:00 05/28/16 08:59 05/24/16 08:21 Metformin HCl (Glucophage) 1,000 mg BID ORAL 04/28/16 09:00 05/28/16 08:59 05/24/16 08:17 EFRAIN GARCIA May 24, 2016 11:34
[2016-05-24 12:50] VITALS: BP 104/48
--- NOTE | 2016-05-24 15:25 | Wound Nurse Progress Note ---
Wound RN Progress Note Wound Consult Wound vac dressing changed as ordered,site cleansed prior to wound vac dressing , pat dried, applied skin barrier film and suresite to protect surrounding tissue and bridge area ,applied foam bridge Dressing ,at complete seal, no leaks present at this time, noted wound bed pink, noted wound drainage light green watery drainage, moderate amount noted, no malodor present. Tolerated wound dressing well , denies any pain or discomfort upon providing wound treatment. Patient repositioned to offload affected wound site, remains comfortable at this time, patient was thankful. patient was also provided with babatunde care,remains clean and dry at this time, Low air loss with AP , intact, flowing well. bed placed at lowest position, bed alarm intact, call light within reach. Assigned RN made aware of dressing change. SAMMIE BARLOW May 24, 2016 15:25
[2016-05-24 16:00] VITALS: BP 124/59
[2016-05-24 20:00] VITALS: BP 131/53
[2016-05-24] MEDS: Atorvastatin 20mg tab ORAL SCH (21:02)
[2016-05-25] VITALS: BP 129/57
[2016-05-25 04:00] VITALS: BP 131/61
--- NOTE | 2016-05-25 04:07 | Progress Note ---
DATE: 05/24/2016 CARDIOLOGY PROGRESS NOTE SUBJECTIVE: The patient has no new distress. She continues with wound care. The patient is on Aggrenox and platelet counts have slowly decreased. OBJECTIVE: Vital signs are stable. Reviewed in the medical record. No signs of acute congestive heart failure. Wound site has dressing in place. IMPRESSION: Stable for lower level of care. Pending disposition. PLAN: 1. Continue Aggrenox and monitoring of platelet counts. 2. Maintaining glucose. 3. Monitoring and titration of diabetic regimen. 4. Continue current cardiovascular regimen and titrate based on clinical parameters. Darius Duran M.D. DR: FREDERICK JOB#: [id number] CC:
[2016-05-25] MEDS: Lactobacillus-GG tablet ORAL SCH ×3 (05:22→21:15)
[2016-05-25] MEDS: Levothyroxine 25mcg tab ORAL SCH (05:22)
[2016-05-25] MEDS: NovoLOG Insulin Flexpen SUBQ SCH ×4 (06:06→21:14)
--- NOTE | 2016-05-25 08:32 | General Progress Note ---
Assessment/Plan Problem List: (1) Hyperglycemia ICD Codes: R73.9 - Hyperglycemia SNOMED: 72468233 (2) Altered mental status ICD Codes: R41.82 - Altered mental status SNOMED: 567993172 Qualifiers: Qualified Codes: R41.82 - Altered mental status, unspecified (3) Sepsis ICD Codes: A41.9 - Sepsis SNOMED: 29593584 (4) Altered mental status ICD Codes: R41.82 - Altered mental status, unspecified SNOMED: 215524309 Qualifiers: Qualified Codes: R41.0 - Disorientation, unspecified (5) Stroke ICD Codes: I63.9 - Stroke SNOMED: 813409799 Qualifiers: (6) Hypothyroid ICD Codes: E03.9 - Hypothyroid SNOMED: 22716646 Qualifiers: Qualified Codes: E03.9 - Hypothyroidism, unspecified (7) Decubitus ulcer, stage 4 with infection ICD Codes: L89.94 - Pressure ulcer of unspecified site, stage 4 SNOMED: 2954716, 066505134 Status: stable, not improved, unchanged Assessment/Plan wound care/dressing changes per surgery cont wound vac turn q 2 cont current diabetes rx monitor bs bp rx ?dc planning home vs snf. 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 family may take pt home. they are currently interviewing 24hr caregivers Subjective ROS Limited/Unobtainable: No Constitutional: Reports: malaise, weakness HEENT: Reports: no symptoms Cardiovascular: Reports: no symptoms Respiratory: Reports: no symptoms Gastrointestinal/Abdominal: Reports: no symptoms Genitourinary: Reports: no symptoms Neurologic/Psychiatric: Reports: pre-existing deficit Endocrine: Reports: no symptoms Hematologic/Lymphatic: Reports: no symptoms Allergies: Coded Allergies: HYDROMORPHONE (Verified Allergy, Unknown, 09/21/14) MORPHINE (Unverified Allergy, Unknown, 04/27/16) All Systems: reviewed and negative except above Subjective no events. no change, has wound vac, denies pain or sob. labs noted. wbc trending down and plts trending down. Objective Last 24 Hour Vital Signs Date Time Temp Pulse Resp B/P Pulse Ox O2 Delivery O2 Flow Rate FiO2 05/25/16 04:00 98.0 76 19 131/61 98 Room Air 05/25/16 00:00 97.7 72 21 129/57 96 Room Air 05/24/16 21:02 80 131/53 05/24/16 21:02 80 131/53 05/24/16 20:00 97.9 80 21 131/53 94 Room Air 05/24/16 16:00 97.7 74 20 124/59 97 Room Air 05/24/16 12:50 97.9 87 19 104/48 97 Room Air 05/24/16 08:43 97.3 78 19 147/66 97 Room Air Intake and Output 05/24/16 05/25/16 19:00 07:00 Intake Total 480 ml Output Total 410 ml Balance 70 ml Intake Oral 480 ml Output Urine Total 400 ml Other 10 ml # Bowel Movements 1 Laboratory Tests 05/24/16 10:30: White Blood Count 10.8, Red Blood Count 4.19L, Hemoglobin 10.7L, Hematocrit 34.2L, Mean Corpuscular Volume 82, Mean Corpuscular Hemoglobin 25.5L, Mean Corpuscular Hemoglobin Concent 31.3L, Red Cell Distribution Width 17.1H, Platelet Count 603H, Mean Platelet Volume 7.7, Neutrophils (%) (Auto) 52.6, Lymphocytes (%) (Auto) 34.0, Monocytes (%) (Auto) 9.6, Eosinophils (%) (Auto) 1.8, Basophils (%) (Auto) 2.1H, Sodium Level 136, Potassium Level 4.7, Chloride Level 97L, Carbon Dioxide Level 24, Anion Gap 15, Blood Urea Nitrogen 31H, Creatinine 0.7, Estimat Glomerular Filtration Rate , Glucose Level 213H, Calcium Level 10.0, Magnesium Level 1.4L, Total Bilirubin 0.4, Aspartate Amino Transf (AST/SGOT) 18, Alanine Aminotransferase (ALT/SGPT) 11, Alkaline Phosphatase 47, Total Protein 6.8, Albumin 3.2L, Globulin 3.6, Albumin/Globulin Ratio 0.8L Height (Feet): 5 Height (Inches): 6.00 Weight (Pounds): 150 Objective General Appearance: WD/WN, alert Neck: supple Cardiovascular: regular rhythm Respiratory/Chest: chest wall non-tender, lungs clear, normal breath sounds, no respiratory distress, no accessory muscle use Abdomen: normal bowel sounds, non tender, soft, no organomegaly, no mass Edema: no edema noted Arm (L), no edema noted Arm (R), no edema noted Leg (L), no edema noted Leg (R), no edema noted Pedal (L), no edema noted Pedal (R), no edema noted Generalized Objective bandage over sacrum ISIDORO BYRNE May 25, 2016 08:32
[2016-05-25 08:45] VITALS: BP 159/86
[2016-05-25] MEDS: metFORMIN 500mg tab ORAL SCH ×2 (08:45→18:23)
[2016-05-25] MEDS: Carvedilol 6.25mg Tab ORAL SCH ×2 (08:45→21:11)
[2016-05-25] MEDS: Memantine 10mg tab ORAL SCH (08:46)
[2016-05-25] MEDS: Mag Plus Protein 133mg Tab ORAL SCH ×3 (08:46→18:23)
[2016-05-25] MEDS: Lisinopril 20mg tab ORAL SCH (08:46)
[2016-05-25] MEDS: ANAGRELIDE 0.5 MG ORAL SCH ×2 (08:47→18:24)
[2016-05-25] MEDS: Heparin 5000 units/ml inj SUBQ SCH ×2 (08:48→21:13)
--- NOTE | 2016-05-25 10:20 | Infectious Diseases Prog Note ---
Assessment/Plan Assessment/Plan A; infected sacral ulcer s/p Rx Wound dehiscence DM HPN MRSA & VRE colonization P: observe off antibiotic Waiting for placement Subjective ROS Limited/Unobtainable: Yes Allergies: Coded Allergies: HYDROMORPHONE (Verified Allergy, Unknown, 09/21/14) MORPHINE (Unverified Allergy, Unknown, 04/27/16) Objective Vital Signs Last 24 Hour Vital Signs Date Time Temp Pulse Resp B/P Pulse Ox O2 Delivery O2 Flow Rate FiO2 05/25/16 08:46 159/86 05/25/16 08:46 74 159/86 05/25/16 08:45 97.0 74 19 159/86 95 Room Air 05/25/16 08:45 74 159/86 05/25/16 04:00 98.0 76 19 131/61 98 Room Air 05/25/16 00:00 97.7 72 21 129/57 96 Room Air 05/24/16 21:02 80 131/53 05/24/16 21:02 80 131/53 05/24/16 20:00 97.9 80 21 131/53 94 Room Air 05/24/16 16:00 97.7 74 20 124/59 97 Room Air 05/24/16 12:50 97.9 87 19 104/48 97 Room Air Height (Feet): 5 Height (Inches): 6.00 Weight (Pounds): 150 General Appearance: no acute distress HEENT: mucous membranes moist Respiratory/Chest: lungs clear Cardiovascular: normal rate Abdomen: soft, non tender Extremities: no edema Neurologic/Psychiatric: other - sleeping Laboratory Tests Test 05/24/16 10:30 White Blood Count 10.8 K/UL (4.8-10.8) Red Blood Count 4.19 M/UL (4.20-5.40) L Hemoglobin 10.7 G/DL (12.0-16.0) L Hematocrit 34.2 % (37.0-47.0) L Mean Corpuscular Volume 82 FL (80-99) Mean Corpuscular Hemoglobin 25.5 PG (27.0-31.0) L Mean Corpuscular Hemoglobin Concent 31.3 G/DL (32.0-36.0) L Red Cell Distribution Width 17.1 % (11.6-14.8) H Platelet Count 603 K/UL (150-450) H Mean Platelet Volume 7.7 FL (6.5-10.1) Neutrophils (%) (Auto) 52.6 % (45.0-75.0) Lymphocytes (%) (Auto) 34.0 % (20.0-45.0) Monocytes (%) (Auto) 9.6 % (1.0-10.0) Eosinophils (%) (Auto) 1.8 % (0.0-3.0) Basophils (%) (Auto) 2.1 % (0.0-2.0) H Sodium Level 136 mEQ/L (135-145) Potassium Level 4.7 mEQ/L (3.4-4.9) Chloride Level 97 mEQ/L (98-107) L Carbon Dioxide Level 24 mEQ/L (20-30) Anion Gap 15 (5-15) Blood Urea Nitrogen 31 mg/dL (7-23) H Creatinine 0.7 mg/dL (0.5-0.9) Estimat Glomerular Filtration Rate mL/min (>60) Glucose Level 213 mg/dL (74-106) H Calcium Level 10.0 mg/dL (8.6-10.2) Magnesium Level 1.4 mg/dL (1.7-2.5) L Total Bilirubin 0.4 mg/dL (0.0-1.2) Aspartate Amino Transf (AST/SGOT) 18 U/L (5-40) Alanine Aminotransferase (ALT/SGPT) 11 U/L (3-33) Alkaline Phosphatase 47 U/L (35-104) Total Protein 6.8 g/dL (6.6-8.7) Albumin 3.2 g/dL (3.5-5.2) L Globulin 3.6 g/dL Albumin/Globulin Ratio 0.8 (1.0-2.7) L Current Medications Medications (Trade) Dose Ordered Sig/Rupert Route PRN Reason Start Time Stop Time Status Last Admin Dose Admin Acetaminophen (Tylenol) 650 mg Q6H PRN ORAL Mild Pain/Temp > 100.5 04/27/16 19:30 05/27/16 19:29 Amino Acids/ Magnesium (Mg-Plus) 133 mg THREE TIMES A DAY ORAL 05/22/16 09:00 06/21/16 08:59 05/25/16 08:46 Amlodipine Besylate (Norvasc) 5 mg Q12HR ORAL 04/27/16 21:00 05/27/16 20:59 05/25/16 08:46 Anagrelide HCl (Agrylin) 1 mg TWICE A DAY ORAL 05/16/16 09:00 06/15/16 08:59 05/25/16 08:47 Atorvastatin Calcium (Lipitor) 20 mg BEDTIME ORAL 04/27/16 21:00 05/27/16 20:59 05/24/16 21:02 Carvedilol (Coreg) 6.25 mg EVERY 12 HOURS ORAL 05/17/16 09:00 06/16/16 08:59 05/25/16 08:45 Dextrose (Dextrose 50%) STAT PRN IV Hypoglycemia 04/27/16 20:00 05/27/16 19:59 Ferrous Sulfate (Feosol) 325 mg THREE TIMES A DAY ORAL 04/28/16 09:00 05/28/16 08:59 05/25/16 08:46 Heparin Sodium (Porcine) (Heparin 5000 units/ml) 5,000 units EVERY 12 HOURS SUBQ 04/27/16 21:00 05/27/16 20:59 05/25/16 08:48 Hydralazine HCl (Apresoline) 25 mg Q6H PRN ORAL prn sbp >160 05/20/16 09:00 06/19/16 08:59 Insulin Aspart (NovoLOG) BEFORE MEALS AND HS SUBQ 04/27/16 21:00 05/27/16 20:59 05/24/16 21:05 Lactobacillus Acidophilus (Culturelle) 1 tab Q8HR ORAL 04/27/16 22:00 05/27/16 21:59 05/25/16 05:22 Levothyroxine Sodium (Synthroid) 25 mcg DAILY@0630 ORAL 05/01/16 06:30 05/31/16 06:29 05/25/16 05:22 Levothyroxine Sodium (Synthroid) 150 mcg DAILY@0630 ORAL 05/01/16 06:30 05/31/16 06:29 05/25/16 05:22 Lisinopril (Prinivil) 40 mg DAILY ORAL 05/02/16 09:00 06/01/16 08:59 05/25/16 08:46 Memantine (Namenda) 10 mg DAILY ORAL 04/28/16 09:00 05/28/16 08:59 05/25/16 08:46 Metformin HCl (Glucophage) 1,000 mg BID ORAL 04/28/16 09:00 05/28/16 08:59 05/25/16 08:45 EFRAIN GARCIA May 25, 2016 10:20
[2016-05-25 12:36] VITALS: BP 110/54
[2016-05-25 16:00] VITALS: BP 109/50
[2016-05-25 20:00] VITALS: BP 129/60
[2016-05-25] MEDS: Atorvastatin 20mg tab ORAL SCH (21:12)
[2016-05-26 00:20] VITALS: BP 127/58
--- NOTE | 2016-05-26 03:47 | Progress Note ---
DATE: 05/25/2016 CARDIOLOGY PROGRESS NOTE SUBJECTIVE: Status unchanged. The patient has a wound VAC. OBJECTIVE: VITAL SIGNS: Blood pressure 131/61, pulse 76, and respirations 19. NECK: Supple. LUNGS: Clear. CARDIAC: Regular. Normal S1 and S2 with a fourth heart sound. ABDOMEN: Soft. EXTREMITIES: No edema. IMPRESSION: Stable from cardiovascular standpoint with improving platelet count in the setting of essential thrombocytosis. PLAN: 1. We will continue current therapy and monitor clinical parameters closely. 2. Awaiting placement. Once determined, outpatient followup will be arranged. Darius Duran M.D. DR: SARAI JOB#: [id number] CC:
[2016-05-26 04:00] VITALS: BP 160/66
[2016-05-26] MEDS: NovoLOG Insulin Flexpen SUBQ SCH ×4 (06:30→22:42)
[2016-05-26] MEDS: Lactobacillus-GG tablet ORAL SCH ×3 (07:11→22:41)
[2016-05-26] MEDS: Levothyroxine 25mcg tab ORAL SCH (07:18)
[2016-05-26] MEDS: Mag Plus Protein 133mg Tab ORAL SCH ×3 (08:24→17:18)
[2016-05-26] MEDS: metFORMIN 500mg tab ORAL SCH ×2 (08:25→17:18)
[2016-05-26] MEDS: Lisinopril 20mg tab ORAL SCH (08:26)
[2016-05-26] MEDS: Carvedilol 6.25mg Tab ORAL SCH ×2 (08:27→22:40)
[2016-05-26] MEDS: Memantine 10mg tab ORAL SCH (08:27)
[2016-05-26] MEDS: Heparin 5000 units/ml inj SUBQ SCH ×2 (08:29→22:43)
[2016-05-26 08:44] VITALS: BP 119/64
--- NOTE | 2016-05-26 11:41 | Infectious Diseases Prog Note ---
"Assessment/Plan Assessment/Plan antibiotics : none A 1. 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 CVA 5. DM 6. HTN P 1. observe off antibiotics 2. d/c planned 3. will sign off, please reconsult if any issues arise Thank you Subjective ROS Limited/Unobtainable: Yes Allergies: Coded Allergies: HYDROMORPHONE (Verified Allergy, Unknown, 09/21/14) MORPHINE (Unverified Allergy, Unknown, 04/27/16) Objective Vital Signs Last 24 Hour Vital Signs Date Time Temp Pulse Resp B/P Pulse Ox O2 Delivery O2 Flow Rate FiO2 05/26/16 08:44 96.8 77 20 119/64 98 Room Air 05/26/16 08:27 77 119/64 05/26/16 08:26 119/64 05/26/16 08:25 77 119/64 05/26/16 04:00 97.2 66 20 160/66 97 Room Air 05/26/16 00:20 97.2 69 21 127/58 98 Room Air 05/25/16 21:12 77 129/60 05/25/16 21:11 77 129/60 05/25/16 20:00 98.6 77 22 129/60 98 Room Air 05/25/16 16:00 98.1 66 18 109/50 96 Room Air 05/25/16 12:36 97.0 93 19 110/54 98 Room Air Height (Feet): 5 Height (Inches): 6.00 Weight (Pounds): 150 Respiratory/Chest: lungs clear Cardiovascular: normal rate, regular rhythm, no gallop/murmur Abdomen: soft, non tender Extremities: no edema ALESSIO KRISHNAMURTHY May 26, 2016 11:41"
[2016-05-26 12:38] VITALS: BP 137/61
[2016-05-26] MEDS: ANAGRELIDE 0.5 MG ORAL SCH ×2 (13:22→17:18)
[2016-05-26 16:00] VITALS: BP 129/66
[2016-05-26 20:00] VITALS: BP 126/64
[2016-05-26] MEDS: Atorvastatin 20mg tab ORAL SCH (22:40)
--- NOTE | 2016-05-26 22:57 | Progress Note ---
DATE: 05/19/2016 CARDIOLOGY PROGRESS NOTE: SUBJECTIVE: The patient has no distress. She is continuing with wound care. She requires pain therapy prior to wound and dressing changes. Her blood pressure is controlled overall with some episodes of increase was noted. OBJECTIVE: VITAL SIGNS: Blood pressure 147/86, pulse 70, respiratory rate 20, no fevers, and oxygen saturation on room air 94 to 96%. NECK: Supple. LUNGS: Clear. CARDIAC: Regular rhythm and rate. Normal S1, S2 with a fourth heart sound. ABDOMEN: Soft. EXTREMITIES: Without edema. SKIN: Flap site dry. IMPRESSION: 1. Recovering sepsis due to sacral wound infection, now status post revision. 2. Type 2 diabetes mellitus. 3. Hypothyroidism. 4. Cerebrovascular disease with dementia. 5. Hypertensive heart disease with controlled blood pressure. 6. Thrombocytosis. PLAN: Antiplatelet therapy. Follow up platelet counts. Antibiotics. Titrate antihypertensives and diabetic regimen. DVT prophylaxis. Thyroid replacement. Darius Duran M.D. DR: César JOB#: [id number] CC:
--- NOTE | 2016-05-26 23:47 | Progress Note ---
DATE: 05/26/2016 CARDIOLOGY PROGRESS NOTE SUBJECTIVE: The patient is awake, alert, in no distress. OBJECTIVE: VITAL SIGNS: Blood pressure 129/66, pulse 68, and respiratory rate 18. She is afebrile. NECK: Supple. LUNGS: Clear. CARDIAC: Regular. Normal S1 and S2. ABDOMEN: Soft. No edema. Wound site has dressing in place. LABORATORY DATA: No new laboratory studies. IMPRESSION: 1. Hypertension, controlled. 2. Colonized with methicillin-resistant Staphylococcus aureus, nasal and rectal VRE only. 3. Decubitus ulcer with infection improving slowly. 4. Cerebrovascular accident with dementia. 5. Essential thrombocytosis, improving with anagrelide. PLAN: 1. Continue current therapy. 2. Recheck laboratory studies periodically for platelet count. 3. We will follow. Darius Duran M.D. DR: FINA JOB#: [id number] CC:
[2016-05-27] VITALS: BP 116/61
--- NOTE | 2016-05-27 01:37 | Progress Note ---
DATE: 05/20/2016 SUBJECTIVE: Patient was seen and evaluated. Vital signs noted. Wound care in place. The patient is on anti-platelet drugs due to essential thrombocytosis. Repeat platelet count is pending. Vital signs are otherwise stable with good blood pressure control. No clinical signs of congestive heart failure. IMPRESSION: Improved. PLAN: Await appropriate disposition. Continue current medication regimen. Adjust anti-platelet therapy based on lab results. Darius Duran M.D. DR: AMY JOB#: [id number] CC:
[2016-05-27 04:00] VITALS: BP 151/69
[2016-05-27] MEDS: Levothyroxine 25mcg tab ORAL SCH (06:07)
[2016-05-27] MEDS: Lactobacillus-GG tablet ORAL SCH ×3 (06:08→21:29)
[2016-05-27] MEDS: NovoLOG Insulin Flexpen SUBQ SCH ×4 (06:30→20:32)
[2016-05-27 06:38] LABS: BASOPHILS % (AUTO) 2.3 % (0.0-2.0); EOSINOPHILS % (AUTO) 1.9 % (0.0-3.0); LYMPHOCYTES % (AUTO) 36.9 % (20.0-45.0); MEAN CORPUSCULAR HEMOGLOBIN 25.5 PG (27.0-31.0); MEAN CORPUSCULAR HGB CONC 31.8 G/DL (32.0-36.0); MEAN CORPUSCULAR VOLUME 80 FL (80-99); MONOCYTES % (AUTO) 8.3 % (1.0-10.0); NEUTROPHILS % (AUTO) 50.8 % (45.0-75.0); PLATELET COUNT 410 K/UL (150-450); RED BLOOD COUNT 4.31 M/UL (4.20-5.40); RED CELL DISTRIBUTION WIDTH 17.1 % (11.6-14.8); WHITE BLOOD COUNT 11.4 K/UL (4.8-10.8)
--- NOTE | 2016-05-27 06:52 | General Progress Note ---
Assessment/Plan Problem List: (1) Hyperglycemia ICD Codes: R73.9 - Hyperglycemia SNOMED: 50444246 (2) Altered mental status ICD Codes: R41.82 - Altered mental status SNOMED: 225493153 Qualifiers: Qualified Codes: R41.82 - Altered mental status, unspecified (3) Sepsis ICD Codes: A41.9 - Sepsis SNOMED: 44908119 (4) Altered mental status ICD Codes: R41.82 - Altered mental status, unspecified SNOMED: 502296044 Qualifiers: Qualified Codes: R41.0 - Disorientation, unspecified (5) Stroke ICD Codes: I63.9 - Stroke SNOMED: 687729492 Qualifiers: (6) Hypothyroid ICD Codes: E03.9 - Hypothyroid SNOMED: 74125675 Qualifiers: Qualified Codes: E03.9 - Hypothyroidism, unspecified (7) Decubitus ulcer, stage 4 with infection ICD Codes: L89.94 - Pressure ulcer of unspecified site, stage 4 SNOMED: 7100031, 094078778 Status: stable, progressing Assessment/Plan wound care/dressing changes per surgery cont wound vac turn q 2 cont current diabetes rx monitor bs bp rx ?dc planning home vs snf. 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 family may take pt home. they are currently interviewing 24hr caregivers Subjective ROS Limited/Unobtainable: No Constitutional: Reports: malaise, weakness HEENT: Reports: no symptoms Cardiovascular: Reports: no symptoms Respiratory: Reports: no symptoms Gastrointestinal/Abdominal: Reports: no symptoms Genitourinary: Reports: no symptoms Neurologic/Psychiatric: Reports: pre-existing deficit Endocrine: Reports: no symptoms Hematologic/Lymphatic: Reports: no symptoms Allergies: Coded Allergies: HYDROMORPHONE (Verified Allergy, Unknown, 09/21/14) MORPHINE (Unverified Allergy, Unknown, 04/27/16) All Systems: reviewed and negative except above Subjective no events. no change, has wound vac, denies pain or sob. labs noted. wbc trending down and plts trending down. on wound vac. d/w night nurse. no issues Objective Last 24 Hour Vital Signs Date Time Temp Pulse Resp B/P Pulse Ox O2 Delivery O2 Flow Rate FiO2 05/27/16 04:00 97.5 71 18 151/69 95 Room Air 05/27/16 00:00 97.9 76 18 116/61 96 Room Air 05/26/16 22:41 67 126/64 05/26/16 22:40 67 126/64 05/26/16 20:00 98.4 67 18 126/64 96 Room Air 05/26/16 16:00 98.6 68 20 129/66 96 Room Air 05/26/16 12:38 97.0 68 19 137/61 97 Room Air 05/26/16 08:44 96.8 77 20 119/64 98 Room Air 05/26/16 08:27 77 119/64 05/26/16 08:26 119/64 05/26/16 08:25 77 119/64 Intake and Output 05/26/16 05/27/16 19:00 07:00 Intake Total 360 ml 620 ml Output Total 175 ml 400 ml Balance 185 ml 220 ml Intake Oral 360 ml 620 ml Output Urine Total 175 ml 400 ml Laboratory Tests 05/27/16 06:00: White Blood Count [Pending], Red Blood Count [Pending], Hemoglobin [Pending], Hematocrit [Pending], Mean Corpuscular Volume [Pending], Mean Corpuscular Hemoglobin [Pending], Mean Corpuscular Hemoglobin Concent [Pending], Red Cell Distribution Width [Pending], Platelet Count [Pending], Mean Platelet Volume [ Pending], Neutrophils (%) (Auto) [Pending], Lymphocytes (%) (Auto) [Pending], Monocytes (%) (Auto) [Pending], Eosinophils (%) (Auto) [Pending], Basophils (%) (Auto) [Pending], Sodium Level [Pending], Potassium Level [Pending], Chloride Level [Pending], Carbon Dioxide Level [Pending], Blood Urea Nitrogen [Pending], Creatinine [Pending], Estimat Glomerular Filtration Rate [Pending], Glucose Level [Pending], Calcium Level [Pending], Magnesium Level [Pending], Total Bilirubin [Pending], Aspartate Amino Transf (AST/SGOT) [Pending], Alanine Aminotransferase (ALT/SGPT) [Pending], Alkaline Phosphatase [Pending], Pro-B- Type Natriuretic Peptide [Pending], Total Protein [Pending], Albumin [Pending], Globulin [Pending], Thyroid Stimulating Hormone (TSH) [Pending] Height (Feet): 5 Height (Inches): 6.00 Weight (Pounds): 150 Objective General Appearance: WD/WN, alert Neck: supple Cardiovascular: regular rhythm Respiratory/Chest: chest wall non-tender, lungs clear, normal breath sounds, no respiratory distress, no accessory muscle use Abdomen: normal bowel sounds, non tender, soft, no organomegaly, no mass Edema: no edema noted Arm (L), no edema noted Arm (R), no edema noted Leg (L), no edema noted Leg (R), no edema noted Pedal (L), no edema noted Pedal (R), no edema noted Generalized Objective bandage over sacrum ISIDORO BYRNE May 27, 2016 06:52
[2016-05-27 06:56] LABS: ALANINE AMINOTRANSFERASE 8 U/L (3-33); ALBUMIN/GLOBULIN RATIO 0.8 (1.0-2.7); ANION GAP 14 (5-15); ASPARTATE AMINO TRANSFERASE 12 U/L (5-40); CARBON DIOXIDE 27 mEQ/L (20-30); CHLORIDE 97 mEQ/L (98-107); CREATININE 0.8 mg/dL (0.5-0.9); HEMOLYSIS 2; MAGNESIUM 1.6 mg/dL (1.7-2.5); POTASSIUM 4.6 mEQ/L (3.4-4.9); SODIUM 138 mEQ/L (135-145); TOTAL PROTEIN 7.3 g/dL (6.6-8.7)
[2016-05-27] MEDS: Mag Plus Protein 133mg Tab ORAL SCH ×3 (08:14→17:51)
[2016-05-27] MEDS: Lisinopril 20mg tab ORAL SCH (08:15)
[2016-05-27] MEDS: metFORMIN 500mg tab ORAL SCH ×2 (08:16→17:51)
[2016-05-27] MEDS: ANAGRELIDE 0.5 MG ORAL SCH ×2 (08:16→17:51)
[2016-05-27] MEDS: Memantine 10mg tab ORAL SCH (08:16)
[2016-05-27] MEDS: Carvedilol 6.25mg Tab ORAL SCH ×2 (08:16→20:24)
[2016-05-27] MEDS: Heparin 5000 units/ml inj SUBQ SCH ×2 (08:18→20:29)
[2016-05-27 08:20] VITALS: BP 137/58
[2016-05-27 12:07] VITALS: BP 135/62
[2016-05-27 16:00] VITALS: BP 107/51
[2016-05-27 19:00] VITALS: BP 110/58
[2016-05-27] MEDS: Atorvastatin 20mg tab ORAL SCH (20:29)
[2016-05-28] VITALS: BP 135/63
--- NOTE | 2016-05-28 03:17 | Progress Note ---
DATE: 05/27/2016 CARDIOLOGY PROGRESS NOTE SUBJECTIVE: The patient is still awaiting appropriate disposition for discharge. The patient continues with wound VAC. The patient remains with no fevers. OBJECTIVE: VITAL SIGNS: Blood pressure 151/69, pulse 71, and respirations 18. Earlier blood pressure was 116/61. LUNGS: Clear. CARDIAC: Regular. Normal S1 and S2. ABDOMEN: Soft and nontender. EXTREMITIES: Without edema. LABORATORY DATA: White count 11.4 and hemoglobin 11.0. Magnesium is 1.6. BUN 33 and creatinine 0.8. Albumin is 3.4. TSH is 2.0. IMPRESSION: 1. Increasing prerenal azotemia. 2. Hypomagnesemia. 3. Hypertensive heart disease. 4. Type 2 diabetes mellitus. 5. Cerebrovascular disease with dementia status post flap revision. PLAN: 1. Encourage oral intake. 2. Fluid intake and additional IV magnesium. 3. Continue wound care. Darius Duran M.D. DR: FREDERICK JOB#: [id number] CC:
[2016-05-28 04:00] VITALS: BP 152/88
[2016-05-28] MEDS: Lactobacillus-GG tablet ORAL SCH ×3 (06:00→21:17)
[2016-05-28] MEDS: NovoLOG Insulin Flexpen SUBQ SCH ×4 (06:30→20:56)
[2016-05-28] MEDS: Levothyroxine 25mcg tab ORAL SCH (06:30)
--- NOTE | 2016-05-28 08:03 | General Progress Note ---
Assessment/Plan Problem List: (1) Hyperglycemia ICD Codes: R73.9 - Hyperglycemia SNOMED: 72197062 (2) Altered mental status ICD Codes: R41.82 - Altered mental status SNOMED: 069961311 Qualifiers: Qualified Codes: R41.82 - Altered mental status, unspecified (3) Sepsis ICD Codes: A41.9 - Sepsis SNOMED: 06271475 (4) Altered mental status ICD Codes: R41.82 - Altered mental status, unspecified SNOMED: 040399507 Qualifiers: Qualified Codes: R41.0 - Disorientation, unspecified (5) Stroke ICD Codes: I63.9 - Stroke SNOMED: 822061356 Qualifiers: (6) Hypothyroid ICD Codes: E03.9 - Hypothyroid SNOMED: 94545890 Qualifiers: Qualified Codes: E03.9 - Hypothyroidism, unspecified (7) Decubitus ulcer, stage 4 with infection ICD Codes: L89.94 - Pressure ulcer of unspecified site, stage 4 SNOMED: 6937763, 184245411 Status: stable, progressing Assessment/Plan wound care/dressing changes per surgery cont wound vac turn q 2 cont current diabetes rx monitor bs bp rx plt count improved. will continue to monitor ?dc planning home vs snf. returned case inspector looking for bed. family may take pt home. they are currently interviewing 24hr caregivers Subjective Constitutional: Reports: malaise, weakness HEENT: Reports: no symptoms Cardiovascular: Reports: no symptoms Respiratory: Reports: no symptoms Gastrointestinal/Abdominal: Reports: no symptoms Genitourinary: Reports: no symptoms Neurologic/Psychiatric: Reports: pre-existing deficit Endocrine: Reports: no symptoms Hematologic/Lymphatic: Reports: no symptoms Allergies: Coded Allergies: HYDROMORPHONE (Verified Allergy, Unknown, 09/21/14) MORPHINE (Unverified Allergy, Unknown, 04/27/16) All Systems: reviewed and negative except above Subjective no events. no change, has wound vac, denies pain or sob. labs noted. wbc trending down and plts trending down. on wound vac. Objective Last 24 Hour Vital Signs Date Time Temp Pulse Resp B/P Pulse Ox O2 Delivery O2 Flow Rate FiO2 05/28/16 04:00 97.9 77 20 152/88 95 Room Air 05/28/16 00:00 98.2 80 20 135/63 95 Room Air 05/27/16 20:25 74 110/68 05/27/16 20:24 74 110/60 05/27/16 19:00 97.5 78 20 110/58 99 Room Air 05/27/16 16:00 97.5 78 18 107/51 97 Room Air 05/27/16 12:07 98.0 75 20 135/62 95 Room Air 05/27/16 08:20 98.4 78 20 137/58 95 Room Air 05/27/16 08:16 78 137/55 05/27/16 08:15 137/55 05/27/16 08:14 78 137/55 Intake and Output 05/27/16 05/28/16 19:00 07:00 Intake Total 240 ml Output Total 525 ml 275 ml Balance -285 ml -275 ml Intake Oral 240 ml Output Urine Total 400 ml 275 ml Other 125 ml # Bowel Movements 1 Height (Feet): 5 Height (Inches): 6.00 Weight (Pounds): 150 Objective General Appearance: WD/WN, alert Neck: supple Cardiovascular: regular rhythm Respiratory/Chest: chest wall non-tender, lungs clear, normal breath sounds, no respiratory distress, no accessory muscle use Abdomen: normal bowel sounds, non tender, soft, no organomegaly, no mass Edema: no edema noted Arm (L), no edema noted Arm (R), no edema noted Leg (L), no edema noted Leg (R), no edema noted Pedal (L), no edema noted Pedal (R), no edema noted Generalized Objective bandage over sacrum ISIDORO BYRNE May 28, 2016 08:03
[2016-05-28 08:15] VITALS: BP 157/73
[2016-05-28] MEDS: Memantine 10mg tab ORAL SCH (09:38)
[2016-05-28] MEDS: Lisinopril 20mg tab ORAL SCH (09:38)
[2016-05-28] MEDS: ANAGRELIDE 0.5 MG ORAL SCH ×2 (09:38→18:12)
[2016-05-28] MEDS: Mag Plus Protein 133mg Tab ORAL SCH ×3 (09:38→18:12)
[2016-05-28] MEDS: Carvedilol 6.25mg Tab ORAL SCH ×2 (09:39→20:53)
[2016-05-28] MEDS: metFORMIN 500mg tab ORAL SCH ×2 (09:39→18:12)
[2016-05-28] MEDS: Heparin 5000 units/ml inj SUBQ SCH ×2 (09:40→20:54)
[2016-05-28 12:15] VITALS: BP 133/70
[2016-05-28 16:00] VITALS: BP 103/57
[2016-05-28 20:03] VITALS: BP 152/72
[2016-05-28] MEDS: Atorvastatin 20mg tab ORAL SCH (20:53)
[2016-05-29] VITALS: BP 129/76
--- NOTE | 2016-05-29 01:07 | Progress Note ---
DATE: 05/28/2016 SUBJECTIVE: The patient has no new complaints. She continues on wound VAC. OBJECTIVE: VITAL SIGNS: Blood pressure 152/88, pulse 77, respiratory rate 20, and afebrile. NECK: Supple. LUNGS: Clear. CARDIAC: Regular. Normal S1 and S2 with a fourth heart sound. ABDOMEN: Soft. EXTREMITIES: No edema. IMPRESSION: 1. Essential thrombocytosis, responding to anagrelide. We will need to observe for counts dropping too low. 2. Hypertensive heart disease. 3. Cerebrovascular disease with multi-infarct dementia. 4. Type 2 diabetes mellitus. 5. Hypothyroidism. 6. Sacral wound, status post flap revision, therapy in place. Monitor platelet count on clinical parameters. Pending discharge. Darius Duran M.D. DR: EVANS JOB#: [id number] CC:
[2016-05-29 04:00] VITALS: BP 125/78
[2016-05-29] MEDS: Lactobacillus-GG tablet ORAL SCH ×3 (06:01→21:34)
[2016-05-29] MEDS: Levothyroxine 25mcg tab ORAL SCH (06:02)
[2016-05-29] MEDS: NovoLOG Insulin Flexpen SUBQ SCH ×4 (06:03→20:56)
[2016-05-29 08:00] VITALS: BP 134/67
[2016-05-29] MEDS: Heparin 5000 units/ml inj SUBQ SCH ×2 (08:45→20:57)
[2016-05-29] MEDS: Carvedilol 6.25mg Tab ORAL SCH ×2 (08:52→20:55)
[2016-05-29] MEDS: Memantine 10mg tab ORAL SCH (08:54)
[2016-05-29] MEDS: metFORMIN 500mg tab ORAL SCH ×2 (08:54→17:55)
[2016-05-29] MEDS: ANAGRELIDE 0.5 MG ORAL SCH ×2 (08:55→17:56)
[2016-05-29] MEDS: Lisinopril 20mg tab ORAL SCH (08:55)
[2016-05-29] MEDS: Mag Plus Protein 133mg Tab ORAL SCH ×3 (08:56→17:56)
--- NOTE | 2016-05-29 11:34 | General Progress Note ---
Assessment/Plan Problem List: (1) Hyperglycemia ICD Codes: R73.9 - Hyperglycemia SNOMED: 84502041 (2) Altered mental status ICD Codes: R41.82 - Altered mental status SNOMED: 439597872 Qualifiers: Qualified Codes: R41.82 - Altered mental status, unspecified (3) Sepsis ICD Codes: A41.9 - Sepsis SNOMED: 46218811 (4) Altered mental status ICD Codes: R41.82 - Altered mental status, unspecified SNOMED: 419911764 Qualifiers: Qualified Codes: R41.0 - Disorientation, unspecified (5) Stroke ICD Codes: I63.9 - Stroke SNOMED: 139232960 Qualifiers: (6) Hypothyroid ICD Codes: E03.9 - Hypothyroid SNOMED: 25611340 Qualifiers: Qualified Codes: E03.9 - Hypothyroidism, unspecified (7) Decubitus ulcer, stage 4 with infection ICD Codes: L89.94 - Pressure ulcer of unspecified site, stage 4 SNOMED: 4527536, 856848283 Status: stable, unchanged Assessment/Plan wound care/dressing changes per surgery cont wound vac. to be changed today turn q 2 cont current diabetes rx monitor bs bp rx plt count improved. will continue to monitor ?dc planning home vs snf. case monitor looking for bed. family may take pt home. they are currently interviewing 24hr caregivers Subjective ROS Limited/Unobtainable: No Constitutional: Reports: malaise, weakness HEENT: Reports: no symptoms Cardiovascular: Reports: no symptoms Respiratory: Reports: no symptoms Gastrointestinal/Abdominal: Reports: no symptoms Genitourinary: Reports: no symptoms Neurologic/Psychiatric: Reports: no symptoms Endocrine: Reports: no symptoms Hematologic/Lymphatic: Reports: no symptoms Allergies: Coded Allergies: HYDROMORPHONE (Verified Allergy, Unknown, 09/21/14) MORPHINE (Unverified Allergy, Unknown, 04/27/16) All Systems: reviewed and negative except above Subjective no events. no change, has wound vac, denies pain or sob. labs noted. Objective Last 24 Hour Vital Signs Date Time Temp Pulse Resp B/P Pulse Ox O2 Delivery O2 Flow Rate FiO2 05/29/16 08:55 135/54 05/29/16 08:54 90 135/54 05/29/16 08:52 90 135/54 05/29/16 08:00 98.4 87 18 134/67 94 Room Air 05/29/16 04:00 98.3 85 16 125/78 96 Room Air 05/29/16 00:00 97.1 96 19 129/76 96 Room Air 05/28/16 20:53 89 152/72 05/28/16 20:53 89 152/72 05/28/16 20:03 97.9 89 18 152/72 97 Room Air 05/28/16 16:00 98.0 89 20 103/57 97 Room Air 05/28/16 12:15 98.0 102 21 133/70 99 Room Air Intake and Output 05/28/16 05/29/16 19:00 07:00 Intake Total 680 ml Output Total 775 ml 1000 ml Balance -95 ml -1000 ml Intake Oral 680 ml Output Urine Total 725 ml 950 ml Other 50 ml 50 ml # Bowel Movements 1 Height (Feet): 5 Height (Inches): 6.00 Weight (Pounds): 150 Objective General Appearance: WD/WN, alert Neck: supple Cardiovascular: regular rhythm Respiratory/Chest: chest wall non-tender, lungs clear, normal breath sounds, no respiratory distress, no accessory muscle use Abdomen: normal bowel sounds, non tender, soft, no organomegaly, no mass Edema: no edema noted Arm (L), no edema noted Arm (R), no edema noted Leg (L), no edema noted Leg (R), no edema noted Pedal (L), no edema noted Pedal (R), no edema noted Generalized Objective bandage over sacrum ISIDORO BYRNE May 29, 2016 11:34
[2016-05-29 11:40] VITALS: BP 124/57
[2016-05-29 16:00] VITALS: BP 117/56
--- NOTE | 2016-05-29 16:18 | Progress Note ---
DATE: 05/29/2016 SUBJECTIVE: The patient has had surgical wound repair of a nonhealing sacral pressure wound. She developed postoperative infection causing partial separation of the wound, which was cleaned up medically and then repaired. She recently had partial opening of the medial margin of the wound, which we have been treating with a wound VAC. The odor from the wound has become feculent, and therefore, I am going to change the wound care to packing with Dakin solution every 8 hours, wet to dry. I would continue this treatment for several weeks and then re-evaluate the wound at that time. This could be carried out as an outpatient with adequate availability of wound care at home. Herbert George M.D. DR: MICHI JOB#: [id number] CC:
[2016-05-29] MEDS: Dakin's 0.5% (Full Strength) 16oz TOPIC SCH (16:20)
[2016-05-29 20:00] VITALS: BP 117/52
[2016-05-29] MEDS: Atorvastatin 20mg tab ORAL SCH (20:55)
[2016-05-30] VITALS: BP 113/51
--- NOTE | 2016-05-30 02:39 | Progress Note ---
DATE: 05/29/2016 CARDIOLOGY PROGRESS NOTE SUBJECTIVE: The patient remains with no new complaints. OBJECTIVE: Vitals are stable. Blood pressure is 135/54, heart rate 90, and respiratory rate 18. Exam remains unchanged. IMPRESSION: 1. Essential thrombocytosis. 2. Sacral wound status post flap revision. 3. Hypertensive heart disease. 4. Multi-infarct cerebrovascular disease with dementia. 5. Hypothyroidism. 6. Type 2 diabetes mellitus. PLAN: 1. dose was decreased to maintenance. 2. Repeat CBC and adjust dose further based on findings. 3. Await disposition, continued wound care, and current cardiovascular regimen. Darius Duran M.D. DR: SARAI JOB#: [id number] CC:
[2016-05-30 04:00] VITALS: BP 110/56
[2016-05-30] MEDS: Levothyroxine 25mcg tab ORAL SCH (06:27)
[2016-05-30] MEDS: Lactobacillus-GG tablet ORAL SCH ×3 (06:27→22:20)
[2016-05-30] MEDS: NovoLOG Insulin Flexpen SUBQ SCH ×4 (06:28→21:09)
[2016-05-30 07:14] LABS: ALANINE AMINOTRANSFERASE 7 U/L (3-33); ALBUMIN/GLOBULIN RATIO 0.8 (1.0-2.7); ANION GAP 16 (5-15); ASPARTATE AMINO TRANSFERASE 14 U/L (5-40); BASOPHILS % (AUTO) 1.9 % (0.0-2.0); CALCIUM 9.9 mg/dL (8.6-10.2); CARBON DIOXIDE 26 mEQ/L (20-30); CHLORIDE 100 mEQ/L (98-107); CREATININE 0.9 mg/dL (0.5-0.9); HEMOLYSIS 0; LYMPHOCYTES % (AUTO) 31.1 % (20.0-45.0); MAGNESIUM 1.8 mg/dL (1.7-2.5); MEAN CORPUSCULAR HEMOGLOBIN 25.6 PG (27.0-31.0); MEAN CORPUSCULAR HGB CONC 31.8 G/DL (32.0-36.0); MEAN CORPUSCULAR VOLUME 81 FL (80-99); MEAN PLATELET VOLUME 9.1 FL (6.5-10.1); MONOCYTES % (AUTO) 8.8 % (1.0-10.0); NEUTROPHILS % (AUTO) 57.2 % (45.0-75.0); PLATELET COUNT 292 K/UL (150-450); POTASSIUM 4.4 mEQ/L (3.4-4.9); RED BLOOD COUNT 4.38 M/UL (4.20-5.40); RED CELL DISTRIBUTION WIDTH 16.8 % (11.6-14.8); SODIUM 142 mEQ/L (135-145); WHITE BLOOD COUNT 14.9 K/UL (4.8-10.8)
[2016-05-30 08:30] VITALS: BP 127/55
--- NOTE | 2016-05-30 08:37 | General Progress Note ---
Assessment/Plan Problem List: (1) Hyperglycemia ICD Codes: R73.9 - Hyperglycemia SNOMED: 96300032 (2) Altered mental status ICD Codes: R41.82 - Altered mental status SNOMED: 078389909 Qualifiers: Qualified Codes: R41.82 - Altered mental status, unspecified (3) Sepsis ICD Codes: A41.9 - Sepsis SNOMED: 93930578 (4) Altered mental status ICD Codes: R41.82 - Altered mental status, unspecified SNOMED: 955298370 Qualifiers: Qualified Codes: R41.0 - Disorientation, unspecified (5) Stroke ICD Codes: I63.9 - Stroke SNOMED: 590473000 Qualifiers: (6) Hypothyroid ICD Codes: E03.9 - Hypothyroid SNOMED: 03908633 Qualifiers: Qualified Codes: E03.9 - Hypothyroidism, unspecified (7) Decubitus ulcer, stage 4 with infection ICD Codes: L89.94 - Pressure ulcer of unspecified site, stage 4 SNOMED: 4901567, 197213239 Status: stable, progressing, unchanged Assessment/Plan wound care/dressing changes per surgery cont wound vac. to be changed today turn q 2 cont current diabetes rx monitor bs bp rx plt count improved. will continue to monitor monitor wbc ?dc planning home vs snf. manager of case looking for bed. family may take pt home. they are currently interviewing 24hr caregivers Subjective ROS Limited/Unobtainable: No Constitutional: Reports: malaise, weakness HEENT: Reports: no symptoms Cardiovascular: Reports: no symptoms Respiratory: Reports: no symptoms Gastrointestinal/Abdominal: Reports: no symptoms Genitourinary: Reports: no symptoms Neurologic/Psychiatric: Reports: pre-existing deficit Endocrine: Reports: no symptoms Hematologic/Lymphatic: Reports: no symptoms Allergies: Coded Allergies: HYDROMORPHONE (Verified Allergy, Unknown, 09/21/14) MORPHINE (Unverified Allergy, Unknown, 04/27/16) All Systems: reviewed and negative except above Subjective no events. no change, has wound vac, denies pain or sob. labs noted. wbc trending up. pt without complaints. no diarrhea or cough Objective Last 24 Hour Vital Signs Date Time Temp Pulse Resp B/P Pulse Ox O2 Delivery O2 Flow Rate FiO2 05/30/16 04:00 98.0 83 18 110/56 94 Room Air 05/30/16 00:00 98.1 85 18 113/51 93 Room Air 05/29/16 20:55 93 117/52 05/29/16 20:54 93 117/52 05/29/16 20:00 05/29/16 20:00 97.7 93 16 117/52 97 Room Air 05/29/16 16:00 98.2 92 19 117/56 93 Room Air 05/29/16 16:00 98.2 92 18 117/56 94 Room Air 05/29/16 11:40 97.9 83 20 124/57 96 Room Air 05/29/16 08:55 135/54 05/29/16 08:54 90 135/54 05/29/16 08:52 90 135/54 Intake and Output 05/29/16 05/30/16 19:00 07:00 Intake Total 600 ml 210 ml Output Total 400 ml 760 ml Balance 200 ml -550 ml Intake Oral 600 ml 210 ml Output Urine Total 400 ml 760 ml # Bowel Movements 1 1 Laboratory Tests 05/30/16 05:15: White Blood Count 14.9H, Red Blood Count 4.38, Hemoglobin 11.2L, Hematocrit 35.3L, Mean Corpuscular Volume 81, Mean Corpuscular Hemoglobin 25.6L, Mean Corpuscular Hemoglobin Concent 31.8L, Red Cell Distribution Width 16.8H, Platelet Count 292, Mean Platelet Volume 9.1, Neutrophils (%) (Auto) 57.2, Lymphocytes (%) (Auto) 31.1, Monocytes (%) (Auto) 8.8, Eosinophils (%) (Auto) 1.0, Basophils (%) (Auto) 1.9, Sodium Level 142, Potassium Level 4.4, Chloride Level 100, Carbon Dioxide Level 26, Anion Gap 16H, Blood Urea Nitrogen 36H, Creatinine 0.9, Estimat Glomerular Filtration Rate , Glucose Level 98, Calcium Level 9.9, Magnesium Level 1.8, Total Bilirubin 0.4, Aspartate Amino Transf (AST /SGOT) 14, Alanine Aminotransferase (ALT/SGPT) 7, Alkaline Phosphatase 58, Pro-B -Type Natriuretic Peptide 205, Total Protein 7.0, Albumin 3.3L, Globulin 3.7, Albumin/Globulin Ratio 0.8L Height (Feet): 5 Height (Inches): 6.00 Weight (Pounds): 150 Objective General Appearance: WD/WN, alert Neck: supple Cardiovascular: regular rhythm Respiratory/Chest: chest wall non-tender, lungs clear, normal breath sounds, no respiratory distress, no accessory muscle use Abdomen: normal bowel sounds, non tender, soft, no organomegaly, no mass Edema: no edema noted Arm (L), no edema noted Arm (R), no edema noted Leg (L), no edema noted Leg (R), no edema noted Pedal (L), no edema noted Pedal (R), no edema noted Generalized Objective bandage over sacrum ISIDORO BYRNE May 30, 2016 08:37
[2016-05-30] MEDS: ANAGRELIDE 0.5 MG ORAL SCH ×2 (09:22→17:23)
[2016-05-30] MEDS: Carvedilol 6.25mg Tab ORAL SCH ×2 (09:23→21:05)
[2016-05-30] MEDS: metFORMIN 500mg tab ORAL SCH ×2 (09:24→17:23)
[2016-05-30] MEDS: Mag Plus Protein 133mg Tab ORAL SCH ×3 (09:24→17:23)
[2016-05-30] MEDS: Memantine 10mg tab ORAL SCH (09:25)
[2016-05-30] MEDS: Lisinopril 20mg tab ORAL SCH (09:25)
[2016-05-30] MEDS: Heparin 5000 units/ml inj SUBQ SCH ×2 (09:26→21:07)
[2016-05-30 12:00] VITALS: BP 107/56
[2016-05-30] MEDS: Dakin's 0.5% (Full Strength) 16oz TOPIC SCH (12:42)
[2016-05-30 16:13] VITALS: BP 104/47
[2016-05-30 20:00] VITALS: BP 123/56
[2016-05-30] MEDS: Atorvastatin 20mg tab ORAL SCH (21:05)
[2016-05-30] MEDS: Acetaminophen 500mg (ES) tab ORAL PRN (21:06)
[2016-05-30] MEDS: Cefepime HCl 1 GM in D5W 55 ML IVPB SCH (22:20)
[2016-05-30] MEDS: Vancomycin 750mg/D5W 275ml IVPB SCH ×2 (23:42)
[2016-05-31] VITALS: BP 124/56
[2016-05-31 00:11] LABS: APPEARANCE,URINE VERY CLOUDY; KETONES,URINE NEGATIVE (NEGATIVE); LEUKOCYTE ESTERASE ,URINE 3+ (NEGATIVE); NITRITE,URINE POSITIVE (NEGATIVE); PH,URINE 9 (4.5-8.0); PROTEIN,URINE 3+ (NEGATIVE); UROBILINOGEN,URINE NORMAL MG/DL (0.0-1.0)
[2016-05-31 00:30] LABS: RBC,URINE TNTC /HPF (0 - 2)
[2016-05-31 00:31] LABS: BACTERIA,URINE MANY /HPF; SQUAMOUS EPITHELIAL CELL,UR OCCASIONAL /LPF (NONE/OCC); TRIPLE PHOSPHATE CRYSTAL,UR MODERATE /LPF; WBC,URINE TNTC /HPF (0 - 2)
--- NOTE | 2016-05-31 01:17 | Progress Note ---
DATE: 05/30/2016 CARDIOLOGY PROGRESS NOTE: SUBJECTIVE: Clinical condition is essentially unchanged. Platelet count has improved and I have decreased her to maintenance dose of anagrelide. OBJECTIVE: VITAL SIGNS: Stable. Glucose was controlled. Exam unchanged. LABORATORY DATA: White count is 14.9, hemoglobin 11.2, and platelets 293,000. Potassium is 4.4, BUN 36, creatinine 0.9, and magnesium 1.8. IMPRESSION AND PLAN: 1. Watch for rising white count. 2. Recheck urine studies. 3. Continue wound care and antimicrobials. 4. Deep venous thrombosis prophylaxis and current cardiovascular as well as diabetic regimen. Darius Duran M.D. DR: CLAUDE/karlos JOB#: [id number] CC:
[2016-05-31 04:00] VITALS: BP 137/63
[2016-05-31] MEDS: Lactobacillus-GG tablet ORAL SCH ×3 (06:02→22:10)
[2016-05-31] MEDS: Levothyroxine 25mcg tab ORAL SCH (06:02)
[2016-05-31] MEDS: NovoLOG Insulin Flexpen SUBQ SCH ×4 (06:06→22:06)
[2016-05-31 07:33] LABS: BASOPHILS % (AUTO) 1.8 % (0.0-2.0); EOSINOPHILS % (AUTO) 1.5 % (0.0-3.0); MEAN CORPUSCULAR HEMOGLOBIN 26.1 PG (27.0-31.0); MEAN CORPUSCULAR HGB CONC 32.3 G/DL (32.0-36.0); MEAN CORPUSCULAR VOLUME 81 FL (80-99); MEAN PLATELET VOLUME 10.4 FL (6.5-10.1); MONOCYTES % (AUTO) 8.8 % (1.0-10.0); NEUTROPHILS % (AUTO) 55.8 % (45.0-75.0); PLATELET COUNT 247 K/UL (150-450); RED BLOOD COUNT 4.86 M/UL (4.20-5.40); RED CELL DISTRIBUTION WIDTH 16.8 % (11.6-14.8); WHITE BLOOD COUNT 12.8 K/UL (4.8-10.8)
--- NOTE | 2016-05-31 08:19 | General Progress Note ---
Assessment/Plan Problem List: (1) Hyperglycemia ICD Codes: R73.9 - Hyperglycemia SNOMED: 42177798 (2) Altered mental status ICD Codes: R41.82 - Altered mental status SNOMED: 566818978 Qualifiers: Qualified Codes: R41.82 - Altered mental status, unspecified (3) Sepsis ICD Codes: A41.9 - Sepsis SNOMED: 63632617 (4) Altered mental status ICD Codes: R41.82 - Altered mental status, unspecified SNOMED: 513132378 Qualifiers: Qualified Codes: R41.0 - Disorientation, unspecified (5) Stroke ICD Codes: I63.9 - Stroke SNOMED: 405153121 Qualifiers: (6) Hypothyroid ICD Codes: E03.9 - Hypothyroid SNOMED: 27199104 Qualifiers: Qualified Codes: E03.9 - Hypothyroidism, unspecified (7) Decubitus ulcer, stage 4 with infection ICD Codes: L89.94 - Pressure ulcer of unspecified site, stage 4 SNOMED: 3238159, 489678569 Status: stable Assessment/Plan wound care/dressing changes per surgery cont wound vac. to be changed today turn q 2 cont current diabetes rx monitor bs bp rx plt count improved. will continue to monitor monitor wbc ?dc planning home vs snf. nurse outreach case manager looking for bed. family may take pt home. they are currently interviewing 24hr caregivers Subjective ROS Limited/Unobtainable: No Constitutional: Reports: malaise, weakness HEENT: Reports: no symptoms Cardiovascular: Reports: no symptoms Respiratory: Reports: no symptoms Gastrointestinal/Abdominal: Reports: no symptoms Genitourinary: Reports: no symptoms Neurologic/Psychiatric: Reports: no symptoms Endocrine: Reports: no symptoms Hematologic/Lymphatic: Reports: no symptoms Allergies: Coded Allergies: HYDROMORPHONE (Verified Allergy, Unknown, 09/21/14) MORPHINE (Unverified Allergy, Unknown, 04/27/16) All Systems: reviewed and negative except above Subjective no events. no change, has wound vac, denies pain or sob. labs noted. wbc trending up. pt without complaints. no diarrhea or cough. constantly repositioned but turns back on to her butt/wound Objective Last 24 Hour Vital Signs Date Time Temp Pulse Resp B/P Pulse Ox O2 Delivery O2 Flow Rate FiO2 05/31/16 04:00 97.9 71 18 137/63 96 Room Air 05/31/16 00:30 97.7 05/31/16 00:00 96.8 72 18 124/56 94 Room Air 05/30/16 22:05 99.3 05/30/16 21:05 102 123/56 05/30/16 21:05 102 123/56 05/30/16 20:00 102.0 102 22 123/56 95 Room Air 05/30/16 16:13 98.4 84 22 104/47 96 Room Air 05/30/16 12:00 98.4 85 18 107/56 95 Room Air 05/30/16 09:25 127/55 05/30/16 09:24 83 127/55 05/30/16 09:23 83 127/55 05/30/16 08:30 98.2 83 18 127/55 95 Room Air Intake and Output 05/30/16 05/31/16 19:00 07:00 Intake Total 720 ml 707.416 ml Output Total 200 ml 285 ml Balance 520 ml 422.416 ml Intake Oral 720 ml 285 ml IV Total 422.416 ml Output Urine Total 200 ml 285 ml # Voids 3 # Bowel Movements 1 2 Laboratory Tests 05/30/16 23:00: Urine Color Yellow, Urine Appearance Very cloudy, Urine pH 9, Urine Specific [place] 1.010, Urine Protein 3+H, Urine Glucose (UA) Negative, Urine Ketones Negative, Urine Occult Blood 4+H, Urine Nitrite PositiveH, Urine Bilirubin Negative, Urine Urobilinogen Normal, Urine Leukocyte Esterase 3+H, Urine RBC TntcH, Urine WBC TntcH, Urine Squamous Epithelial Cells Occasional, Urine Triple Phosphate Crystals ModerateH, Urine Bacteria ManyH 05/31/16 05:35: White Blood Count 12.8H, Red Blood Count 4.86, Hemoglobin 12.7, Hematocrit 39.2 , Mean Corpuscular Volume 81, Mean Corpuscular Hemoglobin 26.1L, Mean Corpuscular Hemoglobin Concent 32.3, Red Cell Distribution Width 16.8H, Platelet Count 247, Mean Platelet Volume 10.4H, Neutrophils (%) (Auto) 55.8, Lymphocytes (%) (Auto) 32.0, Monocytes (%) (Auto) 8.8, Eosinophils (%) (Auto) 1.5, Basophils (%) (Auto) 1.8 Height (Feet): 5 Height (Inches): 6.00 Weight (Pounds): 150 Objective General Appearance: WD/WN, alert Neck: supple Cardiovascular: regular rhythm Respiratory/Chest: chest wall non-tender, lungs clear, normal breath sounds, no respiratory distress, no accessory muscle use Abdomen: normal bowel sounds, non tender, soft, no organomegaly, no mass Edema: no edema noted Arm (L), no edema noted Arm (R), no edema noted Leg (L), no edema noted Leg (R), no edema noted Pedal (L), no edema noted Pedal (R), no edema noted Generalized Objective bandage over sacrum ISIDORO BYRNE May 31, 2016 08:19
[2016-05-31 08:21] VITALS: BP 133/56
[2016-05-31] MEDS: ANAGRELIDE 0.5 MG ORAL SCH ×2 (08:50→17:35)
[2016-05-31] MEDS: Carvedilol 6.25mg Tab ORAL SCH ×2 (08:51→22:04)
[2016-05-31] MEDS: Mag Plus Protein 133mg Tab ORAL SCH ×3 (08:51→17:35)
[2016-05-31] MEDS: metFORMIN 500mg tab ORAL SCH ×2 (08:51→17:35)
[2016-05-31] MEDS: Memantine 10mg tab ORAL SCH (08:52)
[2016-05-31] MEDS: Lisinopril 20mg tab ORAL SCH ×2 (08:53→08:59)
[2016-05-31] MEDS: Heparin 5000 units/ml inj SUBQ SCH ×2 (08:55→22:05)
[2016-05-31 12:30] VITALS: BP 135/60
--- NOTE | 2016-05-31 12:42 | Infectious Diseases Prog Note ---
Assessment/Plan Assessment/Plan A; Fever & Leukocytosis DM HPN MRSA & VRE colonization P: Continue Vancomycin & Cefepime will f/u cultures F/U CXR Subjective ROS Limited/Unobtainable: Yes Constitutional: Reports: fever, other - had fever of 102 last night Respiratory: Reports: no symptoms Genitourinary: Reports: no symptoms Allergies: Coded Allergies: HYDROMORPHONE (Verified Allergy, Unknown, 09/21/14) MORPHINE (Unverified Allergy, Unknown, 04/27/16) Objective Vital Signs Last 24 Hour Vital Signs Date Time Temp Pulse Resp B/P Pulse Ox O2 Delivery O2 Flow Rate FiO2 05/31/16 08:59 128/60 05/31/16 08:52 74 128/60 05/31/16 08:51 74 128/60 05/31/16 08:21 97.6 78 20 133/56 98 Room Air 05/31/16 04:00 97.9 71 18 137/63 96 Room Air 05/31/16 00:30 97.7 05/31/16 00:00 96.8 72 18 124/56 94 Room Air 05/30/16 22:05 99.3 05/30/16 21:05 102 123/56 05/30/16 21:05 102 123/56 05/30/16 20:00 102.0 102 22 123/56 95 Room Air 05/30/16 16:13 98.4 84 22 104/47 96 Room Air Height (Feet): 5 Height (Inches): 6.00 Weight (Pounds): 150 General Appearance: no acute distress HEENT: mucous membranes moist Respiratory/Chest: lungs clear Cardiovascular: normal rate Abdomen: soft, non tender Extremities: no edema, other - R arm PICC line Laboratory Tests Test 05/30/16 23:00 05/31/16 05:35 Urine Color Yellow Urine Appearance Very cloudy Urine pH 9 (4.5-8.0) Urine Specific [place] 1.010 (1.005-1.035) Urine Protein 3+ (NEGATIVE) H Urine Glucose (UA) Negative (NEGATIVE) Urine Ketones Negative (NEGATIVE) Urine Occult Blood 4+ (NEGATIVE) H Urine Nitrite Positive (NEGATIVE) H Urine Bilirubin Negative (NEGATIVE) Urine Urobilinogen Normal MG/DL (0.0-1.0) Urine Leukocyte Esterase 3+ (NEGATIVE) H Urine RBC Tntc /HPF (0 - 2) H Urine WBC Tntc /HPF (0 - 2) H Urine Squamous Epithelial Cells Occasional /LPF Urine Triple Phosphate Crystals Moderate /LPF (NONE) H Urine Bacteria Many /HPF (NONE) H White Blood Count 12.8 K/UL (4.8-10.8) H Red Blood Count 4.86 M/UL (4.20-5.40) Hemoglobin 12.7 G/DL (12.0-16.0) Hematocrit 39.2 % (37.0-47.0) Mean Corpuscular Volume 81 FL (80-99) Mean Corpuscular Hemoglobin 26.1 PG (27.0-31.0) L Mean Corpuscular Hemoglobin Concent 32.3 G/DL (32.0-36.0) Red Cell Distribution Width 16.8 % (11.6-14.8) H Platelet Count 247 K/UL (150-450) Mean Platelet Volume 10.4 FL (6.5-10.1) H Neutrophils (%) (Auto) 55.8 % (45.0-75.0) Lymphocytes (%) (Auto) 32.0 % (20.0-45.0) Monocytes (%) (Auto) 8.8 % (1.0-10.0) Eosinophils (%) (Auto) 1.5 % (0.0-3.0) Basophils (%) (Auto) 1.8 % (0.0-2.0) Current Medications Medications (Trade) Dose Ordered Sig/Rupert Route PRN Reason Start Time Stop Time Status Last Admin Dose Admin Acetaminophen (Tylenol) 500 mg Q6H PRN ORAL Mild Pain/Temp > 100.5 05/30/16 20:15 06/29/16 20:14 05/30/16 21:06 Amino Acids/ Magnesium (Mg-Plus) 133 mg THREE TIMES A DAY ORAL 05/22/16 09:00 06/21/16 08:59 05/31/16 08:51 Amlodipine Besylate (Norvasc) 5 mg Q12HR ORAL 04/27/16 21:00 06/26/16 20:59 05/31/16 08:52 Anagrelide HCl (Agrylin) 0.5 mg TWICE A DAY ORAL 05/29/16 09:00 06/28/16 08:59 05/31/16 08:50 Atorvastatin Calcium (Lipitor) 20 mg BEDTIME ORAL 04/27/16 21:00 06/26/16 20:59 05/30/16 21:05 Carvedilol (Coreg) 6.25 mg EVERY 12 HOURS ORAL 05/17/16 09:00 06/16/16 08:59 05/31/16 08:51 Cefepime HCl 1 gm/ Dextrose 55 ml @ 110 mls/hr Q24H IVPB 05/30/16 22:00 06/06/16 21:59 05/30/16 22:20 Ferrous Sulfate (Feosol) 325 mg THREE TIMES A DAY ORAL 04/28/16 09:00 06/26/16 08:59 05/31/16 08:51 Heparin Sodium (Porcine) (Heparin 5000 units/ml) 5,000 units EVERY 12 HOURS SUBQ 04/27/16 21:00 06/26/16 20:59 05/31/16 08:55 Hydralazine HCl (Apresoline) 25 mg Q6H PRN ORAL prn sbp >160 05/20/16 09:00 06/19/16 08:59 05/28/16 09:38 Insulin Aspart (NovoLOG) BEFORE MEALS AND HS SUBQ 04/27/16 21:00 06/25/16 20:59 05/31/16 12:28 Lactobacillus Acidophilus (Culturelle) 1 tab Q8HR ORAL 04/27/16 22:00 06/26/16 21:59 05/31/16 06:02 Levothyroxine Sodium (Synthroid) 25 mcg DAILY@0630 ORAL 05/01/16 06:30 06/26/16 06:29 05/31/16 06:02 Levothyroxine Sodium (Synthroid) 150 mcg DAILY@0630 ORAL 05/01/16 06:30 06/26/16 06:29 05/31/16 06:02 Lisinopril (Prinivil) 40 mg DAILY ORAL 05/02/16 09:00 06/26/16 08:59 05/31/16 08:59 Memantine (Namenda) 10 mg DAILY ORAL 04/28/16 09:00 06/26/16 08:59 05/31/16 08:52 Metformin HCl (Glucophage) 1,000 mg BID ORAL 04/28/16 09:00 06/26/16 08:59 05/31/16 08:51 Sodium Hypochlorite (Dakin's Full Strength) 1 applic DAILY TOPIC 05/29/16 16:00 06/28/16 15:59 05/30/16 12:42 Vancomycin HCl 1 ea 1 ea DAILY PRN MISC Per rx protocol 05/30/16 20:15 06/29/16 20:14 Vancomycin HCl/ Dextrose (Vancomycin/D5W) 275 ml @ 183.708 mls/hr Q24H IVPB 05/30/16 22:00 06/04/16 21:59 05/30/16 23:42 EFRAIN GARCIA May 31, 2016 12:42
[2016-05-31] MEDS: Dakin's 0.5% (Full Strength) 16oz TOPIC SCH (15:01)
--- NOTE | 2016-05-31 15:26 | Diagnostic Imaging Report ---
Indications: Cough, chest pain Technique: Portable AP chest Findings: Comparison: 05/04/2016 Elevation of the apparent hemidiaphragm, mild bilateral pulmonary interstitial prominence, calcified nodule right midlung unchanged. Heart size, pulmonary vasculature remain within normal limits. No pleural abnormalities demonstrated. Gaseous distention of the stomach unchanged. IMPRESSION: No significant change from previous exam. Interstitial changes may represent pulmonary edema in the setting of congestive heart failure or chronic disease
[2016-05-31 16:11] VITALS: BP 106/58
[2016-05-31 20:12] VITALS: BP 127/47
[2016-05-31] MEDS: Cefepime HCl 1 GM in D5W 55 ML IVPB SCH (22:03)
[2016-05-31] MEDS: Atorvastatin 20mg tab ORAL SCH (22:03)
[2016-05-31] MEDS: Vancomycin 750mg/D5W 275ml IVPB SCH ×2 (23:08)
[2016-06-01 00:01] VITALS: BP 113/50
--- NOTE | 2016-06-01 03:37 | Progress Note ---
DATE: 05/31/2016 CARDIOLOGY PROGRESS NOTE SUBJECTIVE: The patient without new complaints. The patient has signs of new urinary infection despite being on antibiotics and the urine culture is pending. The patient has no shortness of breath. Her chest x-ray reveals interstitial markings, which may be chronic versus edema. Clinically, however, there is no shortness of breath. OBJECTIVE: LUNGS: Clear. CARDIAC: Regular. ABDOMEN: Soft. EXTREMITIES: No edema. LABORATORY AND DIAGNOSTIC DATA: Platelet count is 247,000. IMPRESSION: 1. Essential thrombocytosis. 2. Chronic diastolic congestive heart failure. 3. Hypertensive heart disease. 4. Status post revision of sacral flap. 5. Urinary tract infection. 6. Hypomagnesemia, status post replacement. PLAN: Await urine culture. Titrate dose of anagrelide. Check natriuretic peptide assay. No current plan for diuresis, however, clinical decision-making will depend on daily assessments. Follow up results of laboratory studies. Replace magnesium as needed. Darius Duran M.D. DR: Rafael JOB#: [id number] CC:
[2016-06-01 04:00] VITALS: BP 140/62
[2016-06-01] MEDS: Lactobacillus-GG tablet ORAL SCH ×3 (06:07→21:49)
[2016-06-01] MEDS: Levothyroxine 25mcg tab ORAL SCH (06:07)
[2016-06-01] MEDS: NovoLOG Insulin Flexpen SUBQ SCH ×4 (06:09→21:54)
[2016-06-01 07:53] LABS: BASOPHILS % (AUTO) 1.9 % (0.0-2.0); LYMPHOCYTES % (AUTO) 29.6 % (20.0-45.0); MEAN CORPUSCULAR HGB CONC 31.3 G/DL (32.0-36.0); MEAN CORPUSCULAR VOLUME 80 FL (80-99); MEAN PLATELET VOLUME 10.2 FL (6.5-10.1); NEUTROPHILS % (AUTO) 56.6 % (45.0-75.0); PLATELET COUNT 270 K/UL (150-450); RED BLOOD COUNT 4.46 M/UL (4.20-5.40); RED CELL DISTRIBUTION WIDTH 16.1 % (11.6-14.8); WHITE BLOOD COUNT 11.9 K/UL (4.8-10.8)
[2016-06-01 08:16] VITALS: BP 144/72
--- NOTE | 2016-06-01 08:37 | General Progress Note ---
Assessment/Plan Problem List: (1) Hyperglycemia ICD Codes: R73.9 - Hyperglycemia SNOMED: 79172820 (2) Altered mental status ICD Codes: R41.82 - Altered mental status SNOMED: 857219823 Qualifiers: Qualified Codes: R41.82 - Altered mental status, unspecified (3) Sepsis ICD Codes: A41.9 - Sepsis SNOMED: 56296571 (4) Altered mental status ICD Codes: R41.82 - Altered mental status, unspecified SNOMED: 864932168 Qualifiers: Qualified Codes: R41.0 - Disorientation, unspecified (5) Stroke ICD Codes: I63.9 - Stroke SNOMED: 042436633 Qualifiers: (6) Hypothyroid ICD Codes: E03.9 - Hypothyroid SNOMED: 70651283 Qualifiers: Qualified Codes: E03.9 - Hypothyroidism, unspecified (7) Decubitus ulcer, stage 4 with infection ICD Codes: L89.94 - Pressure ulcer of unspecified site, stage 4 SNOMED: 6439066, 849722222 Status: stable, progressing Assessment/Plan wound care/dressing changes per surgery cont wound vac. to be changed today turn q 2 cont current diabetes rx monitor bs bp rx plt count improved. will continue to monitor monitor wbc ?dc planning home vs snf. 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 no change, has wound vac, denies pain or sob. labs noted. wbc trending up. pt without complaints. no diarrhea or cough. Objective Last 24 Hour Vital Signs Date Time Temp Pulse Resp B/P Pulse Ox O2 Delivery O2 Flow Rate FiO2 06/01/16 08:16 97.5 73 20 144/72 96 Room Air 06/01/16 04:00 97.5 70 21 140/62 97 Room Air 06/01/16 00:01 98.1 76 19 113/50 97 Room Air 05/31/16 22:04 87 139/62 05/31/16 22:04 87 139/62 05/31/16 20:12 98.3 82 21 127/47 94 Room Air 05/31/16 16:11 97.8 78 21 106/58 94 Room Air 05/31/16 12:30 98.0 75 20 135/60 98 Room Air 05/31/16 08:59 128/60 05/31/16 08:52 74 128/60 05/31/16 08:51 74 128/60 Intake and Output 05/31/16 06/01/16 19:00 07:00 Intake Total 960 ml 622.416 ml Output Total 500 ml 1150 ml Balance 460 ml -527.584 ml Intake Oral 960 ml 200 ml IV Total 422.416 ml Output Urine Total 500 ml 1150 ml # Voids 1 # Bowel Movements 1 1 Laboratory Tests 06/01/16 07:30: White Blood Count 11.9H, Red Blood Count 4.46, Hemoglobin 11.1L, Hematocrit 35.6L, Mean Corpuscular Volume 80, Mean Corpuscular Hemoglobin 25.0L, Mean Corpuscular Hemoglobin Concent 31.3L, Red Cell Distribution Width 16.1H, Platelet Count 270, Mean Platelet Volume 10.2H, Neutrophils (%) (Auto) 56.6, Lymphocytes (%) (Auto) 29.6, Monocytes (%) (Auto) 10.0, Eosinophils (%) (Auto) 2.0, Basophils (%) (Auto) 1.9, Sodium Level [Pending], Potassium Level [Pending] , Chloride Level [Pending], Carbon Dioxide Level [Pending], Blood Urea Nitrogen [Pending], Creatinine [Pending], Estimat Glomerular Filtration Rate [Pending], Glucose Level [Pending], Calcium Level [Pending], Magnesium Level [Pending], Total Bilirubin [Pending], Aspartate Amino Transf (AST/SGOT) [Pending], Alanine Aminotransferase (ALT/SGPT) [Pending], Alkaline Phosphatase [Pending], Pro-B- Type Natriuretic Peptide [Pending], Total Protein [Pending], Albumin [Pending], Globulin [Pending] Height (Feet): 5 Height (Inches): 6.00 Weight (Pounds): 150 Objective General Appearance: WD/WN, alert Neck: supple Cardiovascular: regular rhythm Respiratory/Chest: chest wall non-tender, lungs clear, normal breath sounds, no respiratory distress, no accessory muscle use Abdomen: normal bowel sounds, non tender, soft, no organomegaly, no mass Edema: no edema noted Arm (L), no edema noted Arm (R), no edema noted Leg (L), no edema noted Leg (R), no edema noted Pedal (L), no edema noted Pedal (R), no edema noted Generalized Objective bandage over sacrum ISIDORO BYRNE Jun 01, 2016 08:37
[2016-06-01 08:44] LABS: ALANINE AMINOTRANSFERASE 7 U/L (3-33); ALBUMIN/GLOBULIN RATIO 0.7 (1.0-2.7); ANION GAP 14 (5-15); ASPARTATE AMINO TRANSFERASE 13 U/L (5-40); CALCIUM 9.4 mg/dL (8.6-10.2); CARBON DIOXIDE 25 mEQ/L (20-30); CHLORIDE 98 mEQ/L (98-107); CREATININE 0.7 mg/dL (0.5-0.9); HEMOLYSIS 6; MAGNESIUM 1.5 mg/dL (1.7-2.5); POTASSIUM 4.4 mEQ/L (3.4-4.9); SODIUM 137 mEQ/L (135-145); TOTAL PROTEIN 7.1 g/dL (6.6-8.7)
[2016-06-01] MEDS: ANAGRELIDE 0.5 MG ORAL SCH ×2 (09:46→18:27)
[2016-06-01] MEDS: Memantine 10mg tab ORAL SCH (09:47)
[2016-06-01] MEDS: Carvedilol 6.25mg Tab ORAL SCH ×2 (09:47→21:00)
[2016-06-01] MEDS: Mag Plus Protein 133mg Tab ORAL SCH ×3 (09:47→18:27)
[2016-06-01] MEDS: metFORMIN 500mg tab ORAL SCH ×2 (09:47→18:27)
[2016-06-01] MEDS: Lisinopril 20mg tab ORAL SCH (09:48)
[2016-06-01] MEDS: Heparin 5000 units/ml inj SUBQ SCH ×2 (09:50→21:53)
[2016-06-01 11:47] VITALS: BP 131/58
[2016-06-01] MEDS: Dakin's 0.5% (Full Strength) 16oz TOPIC SCH (14:12)
[2016-06-01 16:00] VITALS: BP 119/64
--- NOTE | 2016-06-01 16:04 | Infectious Diseases Prog Note ---
Assessment/Plan Assessment/Plan A; Complicated UTI Fever & Leukocytosis DM HPN MRSA & VRE colonization P: Continue Vancomycin & Cefepime will f/u cultures change Patel catheter Subjective ROS Limited/Unobtainable: Yes Allergies: Coded Allergies: HYDROMORPHONE (Verified Allergy, Unknown, 09/21/14) MORPHINE (Unverified Allergy, Unknown, 04/27/16) Objective Vital Signs Last 24 Hour Vital Signs Date Time Temp Pulse Resp B/P Pulse Ox O2 Delivery O2 Flow Rate FiO2 06/01/16 11:47 98.0 67 20 131/58 97 Room Air 06/01/16 09:48 136/64 06/01/16 09:48 70 136/64 06/01/16 09:47 70 136/64 06/01/16 08:16 97.5 73 20 144/72 96 Room Air 06/01/16 04:00 97.5 70 21 140/62 97 Room Air 06/01/16 00:01 98.1 76 19 113/50 97 Room Air 05/31/16 22:04 87 139/62 05/31/16 22:04 87 139/62 05/31/16 20:12 98.3 82 21 127/47 94 Room Air 05/31/16 16:11 97.8 78 21 106/58 94 Room Air Height (Feet): 5 Height (Inches): 6.00 Weight (Pounds): 150 General Appearance: no acute distress HEENT: mucous membranes moist Respiratory/Chest: lungs clear Cardiovascular: normal rate Abdomen: soft, non tender Genitourinary: other - Patel catheter Extremities: no edema Neurologic/Psychiatric: alert, responsive Microbiology Date/Time Source Procedure Growth Status 05/30/16 21:15 Blood Blood Culture - Preliminary NO GROWTH AFTER 24 HOURS Resulted 05/30/16 23:00 Indwelling Cath Urine Culture - Preliminary Gram Negative Bacillus 1 Resulted Laboratory Tests Test 06/01/16 07:30 White Blood Count 11.9 K/UL (4.8-10.8) H Red Blood Count 4.46 M/UL (4.20-5.40) Hemoglobin 11.1 G/DL (12.0-16.0) L Hematocrit 35.6 % (37.0-47.0) L Mean Corpuscular Volume 80 FL (80-99) Mean Corpuscular Hemoglobin 25.0 PG (27.0-31.0) L Mean Corpuscular Hemoglobin Concent 31.3 G/DL (32.0-36.0) L Red Cell Distribution Width 16.1 % (11.6-14.8) H Platelet Count 270 K/UL (150-450) Mean Platelet Volume 10.2 FL (6.5-10.1) H Neutrophils (%) (Auto) 56.6 % (45.0-75.0) Lymphocytes (%) (Auto) 29.6 % (20.0-45.0) Monocytes (%) (Auto) 10.0 % (1.0-10.0) Eosinophils (%) (Auto) 2.0 % (0.0-3.0) Basophils (%) (Auto) 1.9 % (0.0-2.0) Sodium Level 137 mEQ/L (135-145) Potassium Level 4.4 mEQ/L (3.4-4.9) Chloride Level 98 mEQ/L (98-107) Carbon Dioxide Level 25 mEQ/L (20-30) Anion Gap 14 (5-15) Blood Urea Nitrogen 25 mg/dL (7-23) H Creatinine 0.7 mg/dL (0.5-0.9) Estimat Glomerular Filtration Rate mL/min (>60) Glucose Level 121 mg/dL (74-106) H Calcium Level 9.4 mg/dL (8.6-10.2) Magnesium Level 1.5 mg/dL (1.7-2.5) L Total Bilirubin 0.4 mg/dL (0.0-1.2) Aspartate Amino Transf (AST/SGOT) 13 U/L (5-40) Alanine Aminotransferase (ALT/SGPT) 7 U/L (3-33) Alkaline Phosphatase 45 U/L (35-104) Pro-B-Type Natriuretic Peptide 355 pg/mL (0-450) Total Protein 7.1 g/dL (6.6-8.7) Albumin 3.1 g/dL (3.5-5.2) L Globulin 4.0 g/dL Albumin/Globulin Ratio 0.7 (1.0-2.7) L Current Medications Medications (Trade) Dose Ordered Sig/Rupert Route PRN Reason Start Time Stop Time Status Last Admin Dose Admin Acetaminophen (Tylenol) 500 mg Q6H PRN ORAL Mild Pain/Temp > 100.5 05/30/16 20:15 06/29/16 20:14 05/30/16 21:06 Amino Acids/ Magnesium (Mg-Plus) 133 mg THREE TIMES A DAY ORAL 05/22/16 09:00 06/21/16 08:59 06/01/16 14:14 Amlodipine Besylate (Norvasc) 5 mg Q12HR ORAL 04/27/16 21:00 06/26/16 20:59 06/01/16 09:48 Anagrelide HCl (Agrylin) 0.5 mg TWICE A DAY ORAL 05/29/16 09:00 06/28/16 08:59 06/01/16 09:46 Atorvastatin Calcium (Lipitor) 20 mg BEDTIME ORAL 04/27/16 21:00 06/26/16 20:59 05/31/16 22:03 Carvedilol (Coreg) 6.25 mg EVERY 12 HOURS ORAL 05/17/16 09:00 06/16/16 08:59 06/01/16 09:47 Cefepime HCl 1 gm/ Dextrose 55 ml @ 110 mls/hr Q24H IVPB 05/30/16 22:00 06/06/16 21:59 05/31/16 22:03 Ferrous Sulfate (Feosol) 325 mg THREE TIMES A DAY ORAL 04/28/16 09:00 06/26/16 08:59 06/01/16 14:15 Heparin Sodium (Porcine) (Heparin 5000 units/ml) 5,000 units EVERY 12 HOURS SUBQ 04/27/16 21:00 06/26/16 20:59 06/01/16 09:50 Hydralazine HCl (Apresoline) 25 mg Q6H PRN ORAL prn sbp >160 05/20/16 09:00 06/19/16 08:59 05/28/16 09:38 Insulin Aspart (NovoLOG) BEFORE MEALS AND HS SUBQ 04/27/16 21:00 06/25/16 20:59 06/01/16 13:43 Lactobacillus Acidophilus (Culturelle) 1 tab Q8HR ORAL 04/27/16 22:00 06/26/16 21:59 06/01/16 14:14 Levothyroxine Sodium (Synthroid) 25 mcg DAILY@0630 ORAL 05/01/16 06:30 36/17 06:29 06/01/16 06:07 Levothyroxine Sodium (Synthroid) 150 mcg DAILY@0630 ORAL 05/01/16 06:30 06/26/16 06:29 06/01/16 06:07 Lisinopril (Prinivil) 40 mg DAILY ORAL 05/02/16 09:00 06/26/16 08:59 06/01/16 09:48 Memantine (Namenda) 10 mg DAILY ORAL 04/28/16 09:00 06/26/16 08:59 06/01/16 09:47 Metformin HCl (Glucophage) 1,000 mg BID ORAL 04/28/16 09:00 06/26/16 08:59 06/01/16 09:47 Sodium Hypochlorite (Dakin's Full Strength) 1 applic DAILY TOPIC 05/29/16 16:00 06/28/16 15:59 06/01/16 14:12 Vancomycin HCl 1 ea 1 ea DAILY PRN MISC Per rx protocol 05/30/16 20:15 06/29/16 20:14 Vancomycin HCl/ Dextrose (Vancomycin/D5W) 275 ml @ 183.708 mls/hr Q24H IVPB 05/30/16 22:00 06/04/16 21:59 05/31/16 23:08 EFRAIN GARCIA Jun 01, 2016 16:04
[2016-06-01 20:00] VITALS: BP 113/46
[2016-06-01] MEDS: Atorvastatin 20mg tab ORAL SCH (21:49)
[2016-06-01] MEDS: Cefepime HCl 1 GM in D5W 55 ML IVPB SCH (21:55)
[2016-06-01] MEDS: Vancomycin 750mg/D5W 275ml IVPB SCH ×2 (22:53)
[2016-06-02] VITALS: BP 138/60
--- NOTE | 2016-06-02 00:48 | Progress Note ---
DATE: 06/01/2016 CARDIOLOGY PROGRESS NOTE: SUBJECTIVE: The patient is without new complaints. Urine culture reveals Gram-negative bacillus with final results pending. OBJECTIVE: VITAL SIGNS: Blood pressure is 116/52, pulse rate 74, respiratory rate 18, and she is afebrile. LUNGS: Clear. CARDIAC: Regular. Normal S1 and S2 with a fourth heart sound. ABDOMEN: Soft. EXTREMITIES: With trace edema. LABORATORY DATA: Notable for white count of 11.9, hemoglobin 11.1, and platelet count 270,000. Potassium is 4.4, magnesium 1.5, and albumin 3.1. IMPRESSION: 1. Urinary tract infection. 2. Status post revision of sacral wound flap. 3. Mild protein-calorie malnutrition. 4. Hypertensive heart disease. 5. Hypomagnesemia. 6. Type 2 diabetes mellitus. 7. Multiinfarct cerebrovascular disease. 8. Dementia. 9. Essential thrombocytosis. PLAN: Wound care. Antibiotics. Await final cultures. No change in cardiovascular regimen. Continue to titrate anagrelide dosing based on platelet counts. Intravenous magnesium replacement. Darius Duran M.D. DR: Kwadwo JOB#: [id number] CC:
[2016-06-02 04:00] VITALS: BP 116/61
[2016-06-02] MEDS: Levothyroxine 25mcg tab ORAL SCH (06:31)
[2016-06-02] MEDS: NovoLOG Insulin Flexpen SUBQ SCH ×4 (06:31→21:00)
[2016-06-02] MEDS: Lactobacillus-GG tablet ORAL SCH ×3 (06:32→21:33)
--- NOTE | 2016-06-02 07:04 | General Progress Note ---
Assessment/Plan Problem List: (1) Hyperglycemia ICD Codes: R73.9 - Hyperglycemia SNOMED: 75888175 (2) Altered mental status ICD Codes: R41.82 - Altered mental status SNOMED: 383290253 Qualifiers: Qualified Codes: R41.82 - Altered mental status, unspecified (3) Sepsis ICD Codes: A41.9 - Sepsis SNOMED: 96632765 (4) Altered mental status ICD Codes: R41.82 - Altered mental status, unspecified SNOMED: 992213943 Qualifiers: Qualified Codes: R41.0 - Disorientation, unspecified (5) Stroke ICD Codes: I63.9 - Stroke SNOMED: 701117196 Qualifiers: (6) Hypothyroid ICD Codes: E03.9 - Hypothyroid SNOMED: 34981382 Qualifiers: Qualified Codes: E03.9 - Hypothyroidism, unspecified (7) Decubitus ulcer, stage 4 with infection ICD Codes: L89.94 - Pressure ulcer of unspecified site, stage 4 SNOMED: 4724158, 573320810 Status: stable, progressing Assessment/Plan wound care/dressing cont wound vac. turn q 2 cont current diabetes rx monitor bs bp rx plt count improved. will continue to monitor monitor wbc ?dc planning in process. Subjective ROS Limited/Unobtainable: No Constitutional: Reports: malaise, weakness HEENT: Reports: no symptoms Cardiovascular: Reports: no symptoms Respiratory: Reports: no symptoms Gastrointestinal/Abdominal: Reports: no symptoms Genitourinary: Reports: no symptoms Neurologic/Psychiatric: Reports: pre-existing deficit Endocrine: Reports: no symptoms Hematologic/Lymphatic: Reports: no symptoms Allergies: Coded Allergies: HYDROMORPHONE (Verified Allergy, Unknown, 09/21/14) MORPHINE (Unverified Allergy, Unknown, 04/27/16) All Systems: reviewed and negative except above Subjective no events. no change, has wound vac, denies pain or sob. no new complaints. Objective Last 24 Hour Vital Signs Date Time Temp Pulse Resp B/P Pulse Ox O2 Delivery O2 Flow Rate FiO2 06/02/16 04:00 98.1 68 20 116/61 99 Room Air 06/02/16 00:00 98.2 82 20 138/60 98 06/01/16 21:00 74 116/52 06/01/16 21:00 74 116/52 06/01/16 20:00 97.7 67 20 113/46 97 Room Air 06/01/16 16:00 97.2 74 20 119/64 96 Room Air 06/01/16 11:47 98.0 67 20 131/58 97 Room Air 06/01/16 09:48 136/64 06/01/16 09:48 70 136/64 06/01/16 09:47 70 136/64 06/01/16 08:16 97.5 73 20 144/72 96 Room Air Intake and Output 06/01/16 06/02/16 19:00 07:00 Intake Total 240 ml 400 ml Output Total 400 ml 950 ml Balance -160 ml -550 ml Intake Oral 240 ml 400 ml Output Urine Total 400 ml 950 ml Laboratory Tests 06/01/16 07:30: White Blood Count 11.9H, Red Blood Count 4.46, Hemoglobin 11.1L, Hematocrit 35.6L, Mean Corpuscular Volume 80, Mean Corpuscular Hemoglobin 25.0L, Mean Corpuscular Hemoglobin Concent 31.3L, Red Cell Distribution Width 16.1H, Platelet Count 270, Mean Platelet Volume 10.2H, Neutrophils (%) (Auto) 56.6, Lymphocytes (%) (Auto) 29.6, Monocytes (%) (Auto) 10.0, Eosinophils (%) (Auto) 2.0, Basophils (%) (Auto) 1.9, Sodium Level 137, Potassium Level 4.4, Chloride Level 98, Carbon Dioxide Level 25, Anion Gap 14, Blood Urea Nitrogen 25H, Creatinine 0.7, Estimat Glomerular Filtration Rate , Glucose Level 121H, Calcium Level 9.4, Magnesium Level 1.5L, Total Bilirubin 0.4, Aspartate Amino Transf (AST/SGOT) 13, Alanine Aminotransferase (ALT/SGPT) 7, Alkaline Phosphatase 45, Pro-B-Type Natriuretic Peptide 355, Total Protein 7.1, Albumin 3.1L, Globulin 4.0, Albumin/Globulin Ratio 0.7L Height (Feet): 5 Height (Inches): 6.00 Weight (Pounds): 150 Objective General Appearance: WD/WN, alert Neck: supple Cardiovascular: regular rhythm Respiratory/Chest: chest wall non-tender, lungs clear, normal breath sounds, no respiratory distress, no accessory muscle use Abdomen: normal bowel sounds, non tender, soft, no organomegaly, no mass Edema: no edema noted Arm (L), no edema noted Arm (R), no edema noted Leg (L), no edema noted Leg (R), no edema noted Pedal (L), no edema noted Pedal (R), no edema noted Generalized Objective bandage over sacrum ISIDORO BYRNE Jun 02, 2016 07:04
[2016-06-02 08:42] VITALS: BP 139/78
[2016-06-02] MEDS: Carvedilol 6.25mg Tab ORAL SCH ×2 (09:13→21:33)
[2016-06-02] MEDS: metFORMIN 500mg tab ORAL SCH ×2 (09:13→17:52)
[2016-06-02] MEDS: Lisinopril 20mg tab ORAL SCH (09:13)
[2016-06-02] MEDS: Memantine 10mg tab ORAL SCH (09:13)
[2016-06-02] MEDS: ANAGRELIDE 0.5 MG ORAL SCH ×2 (09:13→17:51)
[2016-06-02] MEDS: Heparin 5000 units/ml inj SUBQ SCH ×2 (09:17→21:36)
[2016-06-02] MEDS: Mag Plus Protein 133mg Tab ORAL SCH ×3 (09:25→17:51)
[2016-06-02] MEDS: Dakin's 0.5% (Full Strength) 16oz TOPIC SCH (11:00)
--- NOTE | 2016-06-02 11:04 | Infectious Diseases Prog Note ---
"Assessment/Plan Assessment/Plan antibiotics : vancomycin iv, cefepime A 1. 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 CVA 5. DM 6. HTN 7. gram negative UTI P 1. continue vancomycin iv, cefepime 2. will follow up cultures Subjective Constitutional: Denies: chills, fever Respiratory: Reports: dry cough, Denies: shortness of breath Gastrointestinal/Abdominal: Denies: diarrhea, nausea, vomiting Musculoskeletal: Denies: pain Allergies: Coded Allergies: HYDROMORPHONE (Verified Allergy, Unknown, 09/21/14) MORPHINE (Unverified Allergy, Unknown, 04/27/16) Objective Vital Signs Last 24 Hour Vital Signs Date Time Temp Pulse Resp B/P Pulse Ox O2 Delivery O2 Flow Rate FiO2 06/02/16 09:13 68 116/61 06/02/16 09:13 116/61 06/02/16 09:13 68 116/61 06/02/16 08:42 97.7 65 19 139/78 94 Room Air 06/02/16 04:00 98.1 68 20 116/61 99 Room Air 06/02/16 00:00 98.2 82 20 138/60 98 06/01/16 21:00 74 116/52 06/01/16 21:00 74 116/52 06/01/16 20:00 97.7 67 20 113/46 97 Room Air 06/01/16 16:00 97.2 74 20 119/64 96 Room Air 06/01/16 11:47 98.0 67 20 131/58 97 Room Air Height (Feet): 5 Height (Inches): 6.00 Weight (Pounds): 150 Respiratory/Chest: lungs clear Cardiovascular: normal rate, regular rhythm, no gallop/murmur Abdomen: soft, non tender Extremities: no edema Microbiology Date/Time Source Procedure Growth Status 05/30/16 21:15 Blood Blood Culture - Preliminary NO GROWTH AFTER 48 HOURS Resulted 05/30/16 23:00 Indwelling Cath Urine Culture - Preliminary Gram Negative Bacillus 1 Resulted ALESSIO KRISHNAMURTHY Jun 02, 2016 11:04"
[2016-06-02 12:00] VITALS: BP 137/75
[2016-06-02 16:12] VITALS: BP 112/73
[2016-06-02 20:04] VITALS: BP 127/56
[2016-06-02] MEDS ORDERED: NS 275ml ONE (21:01)
[2016-06-02] MEDS ORDERED: Tubing IV Secondary IV ONE (21:01)
[2016-06-02] MEDS: Cefepime HCl 1 GM in D5W 55 ML IVPB SCH (21:33)
[2016-06-02] MEDS: Atorvastatin 20mg tab ORAL SCH (21:33)
[2016-06-02] MEDS: Vancomycin 750mg/D5W 275ml IVPB SCH ×2 (22:35)
--- NOTE | 2016-06-02 23:29 | Progress Note ---
DATE: 06/02/2016 CARDIOLOGY PROGRESS NOTE SUBJECTIVE: Condition remains unchanged. The patient has a new urinary infection. Antibiotics initiated per Infectious Diseases cloud consultant. Alert and interactive, ongoing wound care. OBJECTIVE: VITAL SIGNS: Blood pressure 116/60, pulse 68, and respirations 20. NECK: Supple. LUNGS: Clear. CARDIAC: Regular. ABDOMEN: Soft. EXTREMITIES: No edema. Wound VAC in place. IMPRESSION: 1. Urinary tract infection with Proteus mirabilis. 2. Hypertensive heart disease. 3. Hypomagnesemia. 4. Protein-calorie malnutrition. 5. Essential thrombocytosis. 6. Cerebrovascular disease with multi-infarct dementia. PLAN: 1. Continue Anagrelide and titrate dose based on platelet count. 2. Antibiotics per Infectious Diseases cloud consultant. 3. Insulin coverage per sliding scale. 4. Wound care. 5. Maintain and titrate current antihypotensives. Darius Duran M.D. DR: ELÍAS JOB#: [id number] CC:
[2016-06-03] VITALS: BP 120/56
[2016-06-03 04:00] VITALS: BP 132/59
[2016-06-03] MEDS: Lactobacillus-GG tablet ORAL SCH ×3 (05:49→21:25)
[2016-06-03] MEDS: Levothyroxine 25mcg tab ORAL SCH (05:49)
[2016-06-03] MEDS: NovoLOG Insulin Flexpen SUBQ SCH ×4 (06:14→21:27)
[2016-06-03 07:58] VITALS: BP 136/66
[2016-06-03] MEDS: ANAGRELIDE 0.5 MG ORAL SCH ×2 (08:16→18:25)
[2016-06-03] MEDS: metFORMIN 500mg tab ORAL SCH ×2 (08:17→18:25)
[2016-06-03] MEDS: Lisinopril 20mg tab ORAL SCH (08:17)
--- NOTE | 2016-06-03 08:17 | General Progress Note ---
Assessment/Plan Problem List: (1) Hyperglycemia ICD Codes: R73.9 - Hyperglycemia SNOMED: 80076999 (2) Altered mental status ICD Codes: R41.82 - Altered mental status SNOMED: 092051146 Qualifiers: Qualified Codes: R41.82 - Altered mental status, unspecified (3) Sepsis ICD Codes: A41.9 - Sepsis SNOMED: 43213075 (4) Altered mental status ICD Codes: R41.82 - Altered mental status, unspecified SNOMED: 110918154 Qualifiers: Qualified Codes: R41.0 - Disorientation, unspecified (5) Stroke ICD Codes: I63.9 - Stroke SNOMED: 027380659 Qualifiers: (6) Hypothyroid ICD Codes: E03.9 - Hypothyroid SNOMED: 88892415 Qualifiers: Qualified Codes: E03.9 - Hypothyroidism, unspecified (7) Decubitus ulcer, stage 4 with infection ICD Codes: L89.94 - Pressure ulcer of unspecified site, stage 4 SNOMED: 4200312, 882157605 Assessment/Plan wound care/dressing cont wound vac. turn q 2 cont current diabetes rx monitor bs bp rx plt count improved. will continue to monitor monitor wbc ?dc planning in process. Subjective ROS Limited/Unobtainable: No Constitutional: Reports: malaise, weakness HEENT: Reports: no symptoms Cardiovascular: Reports: no symptoms Respiratory: Reports: no symptoms Gastrointestinal/Abdominal: Reports: no symptoms Genitourinary: Reports: no symptoms Neurologic/Psychiatric: Reports: pre-existing deficit Endocrine: Reports: no symptoms Hematologic/Lymphatic: Reports: no symptoms Allergies: Coded Allergies: HYDROMORPHONE (Verified Allergy, Unknown, 09/21/14) MORPHINE (Unverified Allergy, Unknown, 04/27/16) All Systems: reviewed and negative except above Subjective no events. no change, has wound vac, denies pain or sob. no new complaints. Objective Last 24 Hour Vital Signs Date Time Temp Pulse Resp B/P Pulse Ox O2 Delivery O2 Flow Rate FiO2 06/03/16 07:58 97.7 66 20 136/66 94 Room Air 06/03/16 04:00 98.1 65 20 132/59 95 Room Air 06/03/16 00:00 98.1 71 20 120/56 95 Room Air 06/02/16 21:33 75 127/56 06/02/16 21:33 75 127/56 06/02/16 20:04 98.2 75 20 127/56 100 Room Air 06/02/16 16:12 98.4 70 20 112/73 98 Room Air 06/02/16 12:00 97.0 66 19 137/75 95 Room Air 06/02/16 09:13 68 116/61 06/02/16 09:13 116/61 06/02/16 09:13 68 116/61 06/02/16 08:42 97.7 65 19 139/78 94 Room Air Intake and Output 06/02/16 06/03/16 19:00 07:00 Intake Total 240 ml 422.416 ml Output Total 600 ml 650 ml Balance -360 ml -227.584 ml Intake Oral 240 ml IV Total 422.416 ml Output Urine Total 600 ml 650 ml # Bowel Movements 1 Laboratory Tests 06/02/16 22:00: Vancomycin Level Trough 10.2 Height (Feet): 5 Height (Inches): 6.00 Weight (Pounds): 150 Objective General Appearance: WD/WN, alert Neck: supple Cardiovascular: regular rhythm Respiratory/Chest: chest wall non-tender, lungs clear, normal breath sounds, no respiratory distress, no accessory muscle use Abdomen: normal bowel sounds, non tender, soft, no organomegaly, no mass Edema: no edema noted Arm (L), no edema noted Arm (R), no edema noted Leg (L), no edema noted Leg (R), no edema noted Pedal (L), no edema noted Pedal (R), no edema noted Generalized Objective bandage over sacrum ISIDORO BYRNE Jun 03, 2016 08:17
[2016-06-03] MEDS: Memantine 10mg tab ORAL SCH (08:18)
[2016-06-03] MEDS: Carvedilol 6.25mg Tab ORAL SCH ×2 (08:18→21:00)
[2016-06-03] MEDS: Mag Plus Protein 133mg Tab ORAL SCH ×3 (08:18→18:25)
[2016-06-03] MEDS: Dakin's 0.5% (Full Strength) 16oz TOPIC SCH (08:20)
[2016-06-03] MEDS: Heparin 5000 units/ml inj SUBQ SCH ×2 (08:23→21:33)
--- NOTE | 2016-06-03 11:19 | Infectious Diseases Prog Note ---
"Assessment/Plan Assessment/Plan antibiotics : vancomycin iv, cefepime A 1. 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 CVA 5. DM 6. HTN 7. proteus UTI P 1. d/c vancomycin iv, cefepime 2. start and continue iv ceftriaxone 2 more days 3. will follow up cultures Subjective ROS Limited/Unobtainable: Yes Allergies: Coded Allergies: HYDROMORPHONE (Verified Allergy, Unknown, 09/21/14) MORPHINE (Unverified Allergy, Unknown, 04/27/16) Objective Vital Signs Last 24 Hour Vital Signs Date Time Temp Pulse Resp B/P Pulse Ox O2 Delivery O2 Flow Rate FiO2 06/03/16 08:18 66 136/66 06/03/16 08:18 66 136/66 06/03/16 08:17 136/66 06/03/16 07:58 97.7 66 20 136/66 94 Room Air 06/03/16 04:00 98.1 65 20 132/59 95 Room Air 06/03/16 00:00 98.1 71 20 120/56 95 Room Air 06/02/16 21:33 75 127/56 06/02/16 21:33 75 127/56 06/02/16 20:04 98.2 75 20 127/56 100 Room Air 06/02/16 16:12 98.4 70 20 112/73 98 Room Air 06/02/16 12:00 97.0 66 19 137/75 95 Room Air Height (Feet): 5 Height (Inches): 6.00 Weight (Pounds): 150 Respiratory/Chest: lungs clear Cardiovascular: normal rate, regular rhythm, no gallop/murmur Abdomen: soft, non tender Extremities: no edema Laboratory Tests Test 06/02/16 22:00 Vancomycin Level Trough 10.2 ug/mL (5.0-12.0) ALESSIO KRISHNAMURTHY Jun 03, 2016 11:19"
[2016-06-03 12:25] VITALS: BP 118/60
[2016-06-03] MEDS: cefTRIAXone 1 GM in D5W 55 ML IVPB SCH (13:46)
--- NOTE | 2016-06-03 14:05 | Wound Nurse Progress Note ---
Wound RN Progress Note Wound Consult Upon reassessment to sacral site, no further deterioration present, wound bed 70 % pink, 10% maroon,30% yellow/white, noted foul odor, copious serosanguineous drainage, left side of wound remains intact still,site was cleansed and applied treatment as ordered by MD. Patient tolerated treatment well , no c/o of pain at time of dressing application , NO facial grimacing, grunts or moans present at this time. Patient was repositioned to offload affected site, current Low air loss mattress with AP intact and working properly. Bed left at lowest position, call light keep with in reach, fall risk precautions rendered. SAMMIE BARLOW Jun 03, 2016 14:05
[2016-06-03 16:00] VITALS: BP 110/52
[2016-06-03 19:53] VITALS: BP 125/56
[2016-06-03] MEDS: Atorvastatin 20mg tab ORAL SCH (21:24)
[2016-06-04 04:00] VITALS: BP 144/76
[2016-06-04] MEDS: NovoLOG Insulin Flexpen SUBQ SCH ×4 (06:30→21:45)
[2016-06-04] MEDS: Lactobacillus-GG tablet ORAL SCH ×4 (07:00→22:38)
[2016-06-04] MEDS: Levothyroxine 25mcg tab ORAL SCH (07:00)
--- NOTE | 2016-06-04 08:03 | General Progress Note ---
Assessment/Plan Problem List: (1) Hyperglycemia ICD Codes: R73.9 - Hyperglycemia SNOMED: 40403370 (2) Altered mental status ICD Codes: R41.82 - Altered mental status SNOMED: 056195118 Qualifiers: Qualified Codes: R41.82 - Altered mental status, unspecified (3) Sepsis ICD Codes: A41.9 - Sepsis SNOMED: 95089986 (4) Altered mental status ICD Codes: R41.82 - Altered mental status, unspecified SNOMED: 461933985 Qualifiers: Qualified Codes: R41.0 - Disorientation, unspecified (5) Stroke ICD Codes: I63.9 - Stroke SNOMED: 421189521 Qualifiers: (6) Hypothyroid ICD Codes: E03.9 - Hypothyroid SNOMED: 79268236 Qualifiers: Qualified Codes: E03.9 - Hypothyroidism, unspecified (7) Decubitus ulcer, stage 4 with infection ICD Codes: L89.94 - Pressure ulcer of unspecified site, stage 4 SNOMED: 0437446, 975987852 Status: stable, progressing Assessment/Plan wound care/dressing cont wound vac. turn q 2 cont current diabetes rx monitor bs bp rx plt count improved. will continue to monitor monitor wbc ?dc planning in process. Subjective ROS Limited/Unobtainable: No Constitutional: Reports: malaise, weakness HEENT: Reports: no symptoms Cardiovascular: Reports: no symptoms Respiratory: Reports: no symptoms Gastrointestinal/Abdominal: Reports: no symptoms Genitourinary: Reports: no symptoms Neurologic/Psychiatric: Reports: pre-existing deficit Endocrine: Reports: no symptoms Hematologic/Lymphatic: Reports: no symptoms Allergies: Coded Allergies: HYDROMORPHONE (Verified Allergy, Unknown, 09/21/14) MORPHINE (Unverified Allergy, Unknown, 04/27/16) All Systems: reviewed and negative except above Subjective no events. no change, has wound vac, denies pain or sob. no new complaints. Objective Last 24 Hour Vital Signs Date Time Temp Pulse Resp B/P Pulse Ox O2 Delivery O2 Flow Rate FiO2 06/04/16 04:00 98.4 67 16 144/76 98 Room Air 06/03/16 21:24 68 125/56 06/03/16 21:00 68 125/56 06/03/16 19:53 97.7 68 20 125/56 95 Room Air 06/03/16 16:00 97.7 71 20 110/52 95 Room Air 06/03/16 12:25 97.9 68 20 118/60 97 Room Air 06/03/16 08:18 66 136/66 06/03/16 08:18 66 136/66 06/03/16 08:17 136/66 Intake and Output 06/03/16 06/04/16 19:00 07:00 Intake Total 535 ml 240 ml Output Total 650 ml 800 ml Balance -115 ml -560 ml Intake Oral 480 ml 240 ml IV Total 55 ml Output Urine Total 650 ml 800 ml # Bowel Movements 1 Height (Feet): 5 Height (Inches): 6.00 Weight (Pounds): 150 Objective General Appearance: WD/WN, alert Neck: supple Cardiovascular: regular rhythm Respiratory/Chest: chest wall non-tender, lungs clear, normal breath sounds, no respiratory distress, no accessory muscle use Abdomen: normal bowel sounds, non tender, soft, no organomegaly, no mass Edema: no edema noted Arm (L), no edema noted Arm (R), no edema noted Leg (L), no edema noted Leg (R), no edema noted Pedal (L), no edema noted Pedal (R), no edema noted Generalized Objective bandage over sacrum ISIDORO BYRNE Jun 04, 2016 08:03
[2016-06-04 08:26] VITALS: BP 149/71
[2016-06-04] MEDS: Mag Plus Protein 133mg Tab ORAL SCH ×3 (08:52→18:21)
[2016-06-04] MEDS: Lisinopril 20mg tab ORAL SCH (08:53)
[2016-06-04] MEDS: ANAGRELIDE 0.5 MG ORAL SCH ×2 (08:53→18:21)
[2016-06-04] MEDS: Memantine 10mg tab ORAL SCH (08:53)
[2016-06-04] MEDS: metFORMIN 500mg tab ORAL SCH ×2 (08:53→18:21)
[2016-06-04] MEDS: Carvedilol 6.25mg Tab ORAL SCH ×2 (08:53→21:45)
[2016-06-04] MEDS: Dakin's 0.5% (Full Strength) 16oz TOPIC SCH (08:54)
[2016-06-04] MEDS: Heparin 5000 units/ml inj SUBQ SCH ×2 (08:55→21:45)
--- NOTE | 2016-06-04 10:25 | Infectious Diseases Prog Note ---
Assessment/Plan Assessment/Plan A; Complicated UTI with Proteus Leukocytosis DM HPN MRSA & VRE colonization P: Continue Rocephin X 1 day Subjective ROS Limited/Unobtainable: Yes Allergies: Coded Allergies: HYDROMORPHONE (Verified Allergy, Unknown, 09/21/14) MORPHINE (Unverified Allergy, Unknown, 04/27/16) Objective Vital Signs Last 24 Hour Vital Signs Date Time Temp Pulse Resp B/P Pulse Ox O2 Delivery O2 Flow Rate FiO2 06/04/16 08:53 67 149/71 06/04/16 08:53 149/71 06/04/16 08:53 67 149/71 06/04/16 08:26 97.5 67 19 149/71 97 Room Air 06/04/16 04:00 98.4 67 16 144/76 98 Room Air 06/03/16 21:24 68 125/56 06/03/16 21:00 68 125/56 06/03/16 19:53 97.7 68 20 125/56 95 Room Air 06/03/16 16:00 97.7 71 20 110/52 95 Room Air 06/03/16 12:25 97.9 68 20 118/60 97 Room Air Height (Feet): 5 Height (Inches): 6.00 Weight (Pounds): 150 General Appearance: no acute distress HEENT: mucous membranes moist Respiratory/Chest: lungs clear Cardiovascular: normal rate Abdomen: soft, non tender Extremities: no edema Skin: ulcers Neurologic/Psychiatric: alert, responsive Current Medications Medications (Trade) Dose Ordered Sig/Rupert Route PRN Reason Start Time Stop Time Status Last Admin Dose Admin Acetaminophen 500 mg 500 mg Q6H PRN ORAL Mild Pain/Temp > 100.5 05/30/16 20:15 06/29/16 20:14 05/30/16 21:06 Amino Acids/ Magnesium (Mg-Plus) 133 mg THREE TIMES A DAY ORAL 05/22/16 09:00 06/21/16 08:59 06/04/16 08:52 Amlodipine Besylate (Norvasc) 5 mg Q12HR ORAL 04/27/16 21:00 06/26/16 20:59 06/04/16 08:53 Anagrelide HCl (Agrylin) 0.5 mg TWICE A DAY ORAL 05/29/16 09:00 06/28/16 08:59 06/04/16 08:53 Atorvastatin Calcium (Lipitor) 20 mg BEDTIME ORAL 04/27/16 21:00 06/26/16 20:59 06/03/16 21:24 Carvedilol (Coreg) 6.25 mg EVERY 12 HOURS ORAL 05/17/16 09:00 06/16/16 08:59 06/04/16 08:53 Ceftriaxone Sodium/Dextrose (Rocephin/D5W) 55 ml @ 110 mls/hr Q24H IVPB 06/03/16 14:00 06/10/16 13:59 06/03/16 13:46 Ferrous Sulfate (Feosol) 325 mg THREE TIMES A DAY ORAL 04/28/16 09:00 06/26/16 08:59 06/04/16 08:53 Heparin Sodium (Porcine) (Heparin 5000 units/ml) 5,000 units EVERY 12 HOURS SUBQ 04/27/16 21:00 06/26/16 20:59 06/04/16 08:55 Hydralazine HCl (Apresoline) 25 mg Q6H PRN ORAL prn sbp >160 05/20/16 09:00 06/19/16 08:59 05/28/16 09:38 Insulin Aspart (NovoLOG) BEFORE MEALS AND HS SUBQ 04/27/16 21:00 06/25/16 20:59 06/03/16 21:27 Lactobacillus Acidophilus (Culturelle) 1 tab Q8HR ORAL 04/27/16 22:00 06/26/16 21:59 06/04/16 07:00 Levothyroxine Sodium (Synthroid) 25 mcg DAILY@0630 ORAL 05/01/16 06:30 06/26/16 06:29 06/04/16 07:00 Levothyroxine Sodium (Synthroid) 150 mcg DAILY@0630 ORAL 05/01/16 06:30 06/26/16 06:29 06/04/16 07:00 Lisinopril (Prinivil) 40 mg DAILY ORAL 05/02/16 09:00 06/26/16 08:59 06/04/16 08:53 Memantine (Namenda) 10 mg DAILY ORAL 04/28/16 09:00 06/26/16 08:59 06/04/16 08:53 Metformin HCl (Glucophage) 1,000 mg BID ORAL 04/28/16 09:00 06/26/16 08:59 06/04/16 08:53 Sodium Hypochlorite (Dakin's Full Strength) 1 applic DAILY TOPIC 05/29/16 16:00 06/28/16 15:59 06/04/16 08:54 EFRAIN GARCIA Jun 04, 2016 10:25
[2016-06-04 11:50] VITALS: BP 145/78
[2016-06-04] MEDS: cefTRIAXone 1 GM in D5W 55 ML IVPB SCH (15:04)
[2016-06-04 16:08] VITALS: BP 138/62
[2016-06-04 20:00] VITALS: BP 141/58
[2016-06-04] MEDS: Atorvastatin 20mg tab ORAL SCH (21:45)
[2016-06-05] VITALS: BP 112/56
--- NOTE | 2016-06-05 00:59 | Progress Note ---
DATE: 06/03/2016 SUBJECTIVE: The patient is without any distress. She continues with wound VAC. No pain. OBJECTIVE: VITAL SIGNS: Blood pressure 136/66, pulse 66, respirations 20, and afebrile. NECK: Supple. LUNGS: Clear. CARDIAC: Regular. Normal S1 and S2. ABDOMEN: Soft. No edema. LABORATORY DATA: Urine culture with Proteus mirabilis. IMPRESSION: 1. Essential thrombocytosis. 2. Urinary tract infection. 3. Hypertensive heart disease. 4. Multi-infarct cerebrovascular disease with dementia. 5. Sacral wound, status post flap revision. 6. Type 2 diabetes mellitus. PLAN: 1. Antibiotics. 2. Wound care. 3. Titrate insulin coverage. 4. Maintain current antihypertensive regimen. 5. Monitor platelet count on anagrelide and adjust dosing accordingly. Darius Duran M.D. DR: DOE JOB#: [id number] CC:
--- NOTE | 2016-06-05 01:59 | Progress Note ---
DATE: 06/04/2016 SUBJECTIVE: The patient's remains unchanged. OBJECTIVE: VITAL SIGNS: Stable. GENERAL: Oral intake is good. Tolerating wound care. No bleeding complications. LUNGS: Clear. CARDIAC: Regular. EXTREMITIES: Without edema. ABDOMEN: Nontender. IMPRESSION: 1. Urinary tract infection. 2. Essential thrombocytosis. 3. Type 2 diabetes mellitus. 4. Sacral wound, status post flap with revision. 5. Hypertensive heart disease. 6. Multi-infarct dementia. Medications reviewed and updated. 7. Followup chemistry panel and platelet count to be checked. Discharge planning in progress. Darius Duran M.D. DR: TURNER JOB#: [id number] CC:
[2016-06-05 04:00] VITALS: BP 117/52
[2016-06-05] MEDS: Levothyroxine 25mcg tab ORAL SCH (06:18)
[2016-06-05] MEDS: Lactobacillus-GG tablet ORAL SCH ×3 (06:19→21:14)
[2016-06-05] MEDS: NovoLOG Insulin Flexpen SUBQ SCH ×4 (06:20→21:20)
--- NOTE | 2016-06-05 07:18 | General Progress Note ---
Assessment/Plan Problem List: (1) Hyperglycemia ICD Codes: R73.9 - Hyperglycemia SNOMED: 41226477 (2) Altered mental status ICD Codes: R41.82 - Altered mental status SNOMED: 658815511 Qualifiers: Qualified Codes: R41.82 - Altered mental status, unspecified (3) Sepsis ICD Codes: A41.9 - Sepsis SNOMED: 83860595 (4) Altered mental status ICD Codes: R41.82 - Altered mental status, unspecified SNOMED: 086577086 Qualifiers: Qualified Codes: R41.0 - Disorientation, unspecified (5) Stroke ICD Codes: I63.9 - Stroke SNOMED: 332482646 Qualifiers: (6) Hypothyroid ICD Codes: E03.9 - Hypothyroid SNOMED: 36987962 Qualifiers: Qualified Codes: E03.9 - Hypothyroidism, unspecified (7) Decubitus ulcer, stage 4 with infection ICD Codes: L89.94 - Pressure ulcer of unspecified site, stage 4 SNOMED: 4537195, 894443453 Assessment/Plan wound care/dressing cont wound vac. turn q 2 cont current diabetes rx monitor bs bp rx monitor cbc stable for dc to snf. case sealer looking for placement Subjective ROS Limited/Unobtainable: No Constitutional: Reports: malaise, weakness HEENT: Reports: no symptoms Cardiovascular: Reports: no symptoms Respiratory: Reports: no symptoms Gastrointestinal/Abdominal: Reports: no symptoms Genitourinary: Reports: no symptoms Neurologic/Psychiatric: Reports: pre-existing deficit Endocrine: Reports: no symptoms Hematologic/Lymphatic: Reports: no symptoms Allergies: Coded Allergies: HYDROMORPHONE (Verified Allergy, Unknown, 09/21/14) MORPHINE (Unverified Allergy, Unknown, 04/27/16) All Systems: reviewed and negative except above Subjective no events. no change, has wound vac, denies pain or sob. no new complaints. Objective Last 24 Hour Vital Signs Date Time Temp Pulse Resp B/P Pulse Ox O2 Delivery O2 Flow Rate FiO2 06/05/16 04:00 97.5 67 18 117/52 97 Room Air 06/05/16 00:00 97.5 67 18 112/56 95 Room Air 06/04/16 21:45 98 141/58 06/04/16 21:45 98 141/58 06/04/16 20:00 98.5 98 20 141/58 97 Room Air 06/04/16 16:08 98.4 84 21 138/62 95 Room Air 06/04/16 11:50 97.0 95 19 145/78 96 Room Air 06/04/16 08:53 67 149/71 06/04/16 08:53 149/71 06/04/16 08:53 67 149/71 06/04/16 08:26 97.5 67 19 149/71 97 Room Air Intake and Output 06/04/16 06/05/16 19:00 07:00 Intake Total 720 ml 200 ml Output Total 1450 ml 600 ml Balance -730 ml -400 ml Intake Oral 720 ml 200 ml Output Urine Total 1450 ml 600 ml # Voids 1 # Bowel Movements 1 1 Height (Feet): 5 Height (Inches): 6.00 Weight (Pounds): 150 Objective General Appearance: WD/WN, alert Neck: supple Cardiovascular: regular rhythm Respiratory/Chest: chest wall non-tender, lungs clear, normal breath sounds, no respiratory distress, no accessory muscle use Abdomen: normal bowel sounds, non tender, soft, no organomegaly, no mass Edema: no edema noted Arm (L), no edema noted Arm (R), no edema noted Leg (L), no edema noted Leg (R), no edema noted Pedal (L), no edema noted Pedal (R), no edema noted Generalized Objective bandage over sacrum ISIDORO BYRNE Jun 05, 2016 07:18
[2016-06-05 07:44] LABS: BASOPHILS % (AUTO) 1.3 % (0.0-2.0); EOSINOPHILS % (AUTO) 2.1 % (0.0-3.0); LYMPHOCYTES % (AUTO) 30.6 % (20.0-45.0); MEAN CORPUSCULAR HEMOGLOBIN 24.6 PG (27.0-31.0); MEAN CORPUSCULAR HGB CONC 30.8 G/DL (32.0-36.0); MEAN CORPUSCULAR VOLUME 80 FL (80-99); MEAN PLATELET VOLUME 8.4 FL (6.5-10.1); MONOCYTES % (AUTO) 10.8 % (1.0-10.0); NEUTROPHILS % (AUTO) 55.3 % (45.0-75.0); PLATELET COUNT 451 K/UL (150-450); RED BLOOD COUNT 4.32 M/UL (4.20-5.40); RED CELL DISTRIBUTION WIDTH 16.1 % (11.6-14.8); WHITE BLOOD COUNT 13.8 K/UL (4.8-10.8)
[2016-06-05 08:06] LABS: ALANINE AMINOTRANSFERASE 7 U/L (3-33); ALBUMIN/GLOBULIN RATIO 0.8 (1.0-2.7); ANION GAP 18 (5-15); ASPARTATE AMINO TRANSFERASE 14 U/L (5-40); CALCIUM 9.7 mg/dL (8.6-10.2); CARBON DIOXIDE 23 mEQ/L (20-30); CHLORIDE 95 mEQ/L (98-107); CREATININE 0.7 mg/dL (0.5-0.9); HEMOLYSIS 1; MAGNESIUM 1.6 mg/dL (1.7-2.5); POTASSIUM 4.9 mEQ/L (3.4-4.9); SODIUM 136 mEQ/L (135-145)
[2016-06-05 08:22] VITALS: BP 139/61
[2016-06-05] MEDS: ANAGRELIDE 0.5 MG ORAL SCH ×2 (08:34→17:58)
[2016-06-05] MEDS: metFORMIN 500mg tab ORAL SCH ×2 (08:34→17:58)
[2016-06-05] MEDS: Lisinopril 20mg tab ORAL SCH (08:35)
[2016-06-05] MEDS: Carvedilol 6.25mg Tab ORAL SCH ×2 (08:35→21:23)
[2016-06-05] MEDS: Memantine 10mg tab ORAL SCH (08:35)
[2016-06-05] MEDS: Heparin 5000 units/ml inj SUBQ SCH ×2 (08:40→21:20)
[2016-06-05] MEDS: Dakin's 0.5% (Full Strength) 16oz TOPIC SCH (08:44)
[2016-06-05] MEDS: Mag Plus Protein 133mg Tab ORAL SCH ×3 (09:13→17:58)
--- NOTE | 2016-06-05 11:17 | Infectious Diseases Prog Note ---
"Assessment/Plan Assessment/Plan antibiotics : ceftriaxone A 1. 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 CVA 5. DM 6. HTN 7. proteus | e.coli UTI P 1. d/c ceftriaxone 2. start and continue macrobid 3. will follow up cultures Subjective Constitutional: Denies: chills, fever Respiratory: Denies: dry cough, shortness of breath Gastrointestinal/Abdominal: Denies: diarrhea, nausea, vomiting Musculoskeletal: Denies: pain Allergies: Coded Allergies: HYDROMORPHONE (Verified Allergy, Unknown, 09/21/14) MORPHINE (Unverified Allergy, Unknown, 04/27/16) Objective Vital Signs Last 24 Hour Vital Signs Date Time Temp Pulse Resp B/P Pulse Ox O2 Delivery O2 Flow Rate FiO2 06/05/16 08:35 66 139/61 06/05/16 08:35 139/61 06/05/16 08:34 66 139/61 06/05/16 08:22 97.7 66 18 139/61 97 Room Air 06/05/16 04:00 97.5 67 18 117/52 97 Room Air 06/05/16 00:00 97.5 67 18 112/56 95 Room Air 06/04/16 21:45 98 141/58 06/04/16 21:45 98 141/58 06/04/16 20:00 98.5 98 20 141/58 97 Room Air 06/04/16 16:08 98.4 84 21 138/62 95 Room Air 06/04/16 11:50 97.0 95 19 145/78 96 Room Air Height (Feet): 5 Height (Inches): 6.00 Weight (Pounds): 150 Respiratory/Chest: lungs clear Cardiovascular: normal rate, regular rhythm, no gallop/murmur Abdomen: soft, non tender Extremities: no edema Laboratory Tests Test 06/05/16 05:20 White Blood Count 13.8 K/UL (4.8-10.8) H Red Blood Count 4.32 M/UL (4.20-5.40) Hemoglobin 10.6 G/DL (12.0-16.0) L Hematocrit 34.5 % (37.0-47.0) L Mean Corpuscular Volume 80 FL (80-99) Mean Corpuscular Hemoglobin 24.6 PG (27.0-31.0) L Mean Corpuscular Hemoglobin Concent 30.8 G/DL (32.0-36.0) L Red Cell Distribution Width 16.1 % (11.6-14.8) H Platelet Count 451 K/UL (150-450) H Mean Platelet Volume 8.4 FL (6.5-10.1) Neutrophils (%) (Auto) 55.3 % (45.0-75.0) Lymphocytes (%) (Auto) 30.6 % (20.0-45.0) Monocytes (%) (Auto) 10.8 % (1.0-10.0) H Eosinophils (%) (Auto) 2.1 % (0.0-3.0) Basophils (%) (Auto) 1.3 % (0.0-2.0) Sodium Level 136 mEQ/L (135-145) Potassium Level 4.9 mEQ/L (3.4-4.9) Chloride Level 95 mEQ/L (98-107) L Carbon Dioxide Level 23 mEQ/L (20-30) Anion Gap 18 (5-15) H Blood Urea Nitrogen 20 mg/dL (7-23) Creatinine 0.7 mg/dL (0.5-0.9) Estimat Glomerular Filtration Rate mL/min (>60) Glucose Level 94 mg/dL (74-106) Calcium Level 9.7 mg/dL (8.6-10.2) Magnesium Level 1.6 mg/dL (1.7-2.5) L Total Bilirubin < 0.2 mg/dL (0.0-1.2) Aspartate Amino Transf (AST/SGOT) 14 U/L (5-40) Alanine Aminotransferase (ALT/SGPT) 7 U/L (3-33) Alkaline Phosphatase 52 U/L (35-104) Pro-B-Type Natriuretic Peptide 342 pg/mL (0-450) Total Protein 7.0 g/dL (6.6-8.7) Albumin 3.2 g/dL (3.5-5.2) L Globulin 3.8 g/dL Albumin/Globulin Ratio 0.8 (1.0-2.7) L ALESSIO KRISHNAMURTHY Jun 05, 2016 11:17"
[2016-06-05 12:45] VITALS: BP 111/52
[2016-06-05 16:00] VITALS: BP 124/58
[2016-06-05 20:04] VITALS: BP 129/68
[2016-06-05] MEDS: Atorvastatin 20mg tab ORAL SCH (21:14)
[2016-06-06] VITALS: BP 116/57
--- NOTE | 2016-06-06 00:59 | Progress Note ---
DATE: 06/05/2016 CARDIOLOGY PROGRESS NOTE SUBJECTIVE: The patient is without any distress. OBJECTIVE: VITAL SIGNS: Blood pressure 117/52 to 141/58, heart rate 67 to 98, respiratory 18 to 21, and no fevers. NECK: Supple. LUNGS: Clear. CARDIAC: Regular. Normal S1 and S2 with a fourth heart sound. ABDOMEN: Soft. EXTREMITIES: Trace edema. LABORATORY DATA: White count 13.8, hemoglobin 10.6, and platelets 451,000. Potassium is 4.9. Magnesium is 1.6. Albumin is 3.2. Pro-natriuretic peptide is 342. IMPRESSION: 1. Platelet counts are increasing again. 2. Hypomagnesemia recurrent. 3. Protein-calorie malnutrition slowly improving. 4. Hypertension generally, adequately controlled. 5. Type 2 diabetes mellitus with uncontrolled blood glucose. PLAN: 1. Additional magnesium intravenously. 2. Wound care. 3. Protein supplement. 4. Followup platelet count and if continue to rise we will need to advance anagrelide dosing again. Darius Duran M.D. DR: FREDERICK JOB#: [id number] CC:
[2016-06-06 04:00] VITALS: BP 145/67
--- NOTE | 2016-06-06 05:29 | General Progress Note ---
Assessment/Plan Problem List: (1) Hyperglycemia ICD Codes: R73.9 - Hyperglycemia SNOMED: 49225075 (2) Altered mental status ICD Codes: R41.82 - Altered mental status SNOMED: 600790882 Qualifiers: Qualified Codes: R41.82 - Altered mental status, unspecified (3) Sepsis ICD Codes: A41.9 - Sepsis SNOMED: 96955849 (4) Altered mental status ICD Codes: R41.82 - Altered mental status, unspecified SNOMED: 022568722 Qualifiers: Qualified Codes: R41.0 - Disorientation, unspecified (5) Stroke ICD Codes: I63.9 - Stroke SNOMED: 509952945 Qualifiers: (6) Hypothyroid ICD Codes: E03.9 - Hypothyroid SNOMED: 47297118 Qualifiers: Qualified Codes: E03.9 - Hypothyroidism, unspecified (7) Decubitus ulcer, stage 4 with infection ICD Codes: L89.94 - Pressure ulcer of unspecified site, stage 4 SNOMED: 6652876, 343312009 Assessment/Plan wound care/dressing cont wound vac. turn q 2 cont current diabetes rx monitor bs bp rx monitor cbc stable for dc to snf. case packer looking for placement will cont to monitor Subjective ROS Limited/Unobtainable: No Constitutional: Reports: malaise, weakness HEENT: Reports: no symptoms Cardiovascular: Reports: no symptoms Respiratory: Reports: no symptoms Gastrointestinal/Abdominal: Reports: no symptoms Genitourinary: Reports: no symptoms Neurologic/Psychiatric: Reports: pre-existing deficit Endocrine: Reports: no symptoms Hematologic/Lymphatic: Reports: anemia Allergies: Coded Allergies: HYDROMORPHONE (Verified Allergy, Unknown, 09/21/14) MORPHINE (Unverified Allergy, Unknown, 04/27/16) All Systems: reviewed and negative except above Subjective no events. no change, has wound vac, denies pain or sob. no new complaints. resting Objective Last 24 Hour Vital Signs Date Time Temp Pulse Resp B/P Pulse Ox O2 Delivery O2 Flow Rate FiO2 06/06/16 04:00 97.5 75 20 145/67 95 Room Air 06/06/16 00:00 98.2 76 20 116/57 98 Room Air 06/05/16 21:23 85 129/68 06/05/16 21:23 85 129/68 06/05/16 20:04 98.7 85 20 129/68 97 Room Air 06/05/16 16:00 97.9 70 20 124/58 98 Room Air 06/05/16 12:45 97.5 70 20 111/52 97 Room Air 06/05/16 08:35 66 139/61 06/05/16 08:35 139/61 06/05/16 08:34 66 139/61 06/05/16 08:22 97.7 66 18 139/61 97 Room Air Intake and Output 06/05/16 06/06/16 19:00 07:00 Intake Total 720 ml 250 ml Output Total 200 ml 250 ml Balance 520 ml 0 ml Intake Oral 720 ml 250 ml Output Urine Total 200 ml 250 ml # Voids 1 # Bowel Movements 2 Height (Feet): 5 Height (Inches): 6.00 Weight (Pounds): 150 Objective General Appearance: WD/WN, alert Neck: supple Cardiovascular: regular rhythm Respiratory/Chest: chest wall non-tender, lungs clear, normal breath sounds, no respiratory distress, no accessory muscle use Abdomen: normal bowel sounds, non tender, soft, no organomegaly, no mass Edema: no edema noted Arm (L), no edema noted Arm (R), no edema noted Leg (L), no edema noted Leg (R), no edema noted Pedal (L), no edema noted Pedal (R), no edema noted Generalized Objective bandage over sacrum ISIDORO BYRNE Jun 06, 2016 05:29
[2016-06-06] MEDS: Lactobacillus-GG tablet ORAL SCH ×3 (05:34→21:11)
[2016-06-06] MEDS: Levothyroxine 25mcg tab ORAL SCH (05:34)
[2016-06-06] MEDS: NovoLOG Insulin Flexpen SUBQ SCH ×4 (05:34→21:00)
[2016-06-06 08:00] VITALS: BP 152/74
[2016-06-06] MEDS: Carvedilol 6.25mg Tab ORAL SCH ×2 (08:46→21:00)
[2016-06-06] MEDS: ANAGRELIDE 0.5 MG ORAL SCH ×2 (08:46→17:18)
[2016-06-06] MEDS: Memantine 10mg tab ORAL SCH (08:47)
[2016-06-06] MEDS: Lisinopril 20mg tab ORAL SCH (08:47)
[2016-06-06] MEDS: Mag Plus Protein 133mg Tab ORAL SCH ×3 (08:47→17:18)
[2016-06-06] MEDS: metFORMIN 500mg tab ORAL SCH ×2 (08:47→17:18)
[2016-06-06] MEDS: Dakin's 0.5% (Full Strength) 16oz TOPIC SCH (08:53)
[2016-06-06] MEDS: Heparin 5000 units/ml inj SUBQ SCH ×2 (08:57→21:25)
--- NOTE | 2016-06-06 11:12 | Infectious Diseases Prog Note ---
"Assessment/Plan Assessment/Plan antibiotics : macrobid A 1. 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 CVA 5. DM 6. HTN 7. proteus | e.coli UTI P 1. continue macrobid 5 more days 2. will follow up cultures Subjective ROS Limited/Unobtainable: Yes Allergies: Coded Allergies: HYDROMORPHONE (Verified Allergy, Unknown, 09/21/14) MORPHINE (Unverified Allergy, Unknown, 04/27/16) Objective Vital Signs Last 24 Hour Vital Signs Date Time Temp Pulse Resp B/P Pulse Ox O2 Delivery O2 Flow Rate FiO2 06/06/16 08:47 152/74 06/06/16 08:47 76 152/74 06/06/16 08:46 76 152/74 06/06/16 08:00 97.2 76 18 152/74 96 Room Air 06/06/16 04:00 97.5 75 20 145/67 95 Room Air 06/06/16 00:00 98.2 76 20 116/57 98 Room Air 06/05/16 21:23 85 129/68 06/05/16 21:23 85 129/68 06/05/16 20:04 98.7 85 20 129/68 97 Room Air 06/05/16 16:00 97.9 70 20 124/58 98 Room Air 06/05/16 12:45 97.5 70 20 111/52 97 Room Air Height (Feet): 5 Height (Inches): 6.00 Weight (Pounds): 150 Respiratory/Chest: lungs clear Cardiovascular: normal rate, regular rhythm, no gallop/murmur Abdomen: soft, non tender Extremities: no edema ALESSIO KRISHNAMURTHY Jun 06, 2016 11:12"
[2016-06-06 12:00] VITALS: BP_SYST 120; BP_SYST 131; BP_DIAS 54; BP_DIAS 75
[2016-06-06 16:00] VITALS: BP 140/57
[2016-06-06 19:00] VITALS: BP 108/50
[2016-06-06] MEDS: Atorvastatin 20mg tab ORAL SCH (21:11)
[2016-06-07] VITALS: BP 131/63
[2016-06-07 03:55] VITALS: BP 143/80
--- NOTE | 2016-06-07 05:49 | Progress Note ---
DATE: 06/06/2016 CARDIOLOGY PROGRESS NOTE SUBJECTIVE: No new distress. No nausea, vomiting, or chest pain. Tolerating medications and wound care. OBJECTIVE: VITAL SIGNS: Stable. Clinical exam without change. IMPRESSION: Stable cardiovascular parameters. PLAN: We will need to follow up electrolytes and platelet counts and adjust therapy accordingly. Awaiting placement to the [facility] facility. Darius Duran M.D. DR: ELÍAS JOB#: [id number] CC:
[2016-06-07] MEDS: Levothyroxine 25mcg tab ORAL SCH (06:21)
[2016-06-07] MEDS: NovoLOG Insulin Flexpen SUBQ SCH ×4 (06:22→21:25)
[2016-06-07] MEDS: Lactobacillus-GG tablet ORAL SCH ×3 (06:22→21:23)
[2016-06-07 08:00] VITALS: BP 132/57
[2016-06-07] MEDS: ANAGRELIDE 0.5 MG ORAL SCH ×2 (08:01→18:08)
[2016-06-07] MEDS: Mag Plus Protein 133mg Tab ORAL SCH ×3 (08:02→18:08)
[2016-06-07] MEDS: Carvedilol 6.25mg Tab ORAL SCH ×2 (08:02→21:22)
[2016-06-07] MEDS: Memantine 10mg tab ORAL SCH (08:02)
[2016-06-07] MEDS: Lisinopril 20mg tab ORAL SCH (08:03)
[2016-06-07] MEDS: metFORMIN 500mg tab ORAL SCH ×2 (08:03→18:08)
[2016-06-07] MEDS: Dakin's 0.5% (Full Strength) 16oz TOPIC SCH (08:04)
[2016-06-07] MEDS: Heparin 5000 units/ml inj SUBQ SCH ×2 (08:11→21:24)
--- NOTE | 2016-06-07 09:53 | Infectious Diseases Prog Note ---
Assessment/Plan Assessment/Plan A; Complicated UTI with Proteus & E.coli Leukocytosis DM HPN MRSA & VRE colonization P: Continue Nitrofurantoin X 4 days Waiting for placement Subjective ROS Limited/Unobtainable: Yes Allergies: Coded Allergies: HYDROMORPHONE (Verified Allergy, Unknown, 09/21/14) MORPHINE (Unverified Allergy, Unknown, 04/27/16) Objective Vital Signs Last 24 Hour Vital Signs Date Time Temp Pulse Resp B/P Pulse Ox O2 Delivery O2 Flow Rate FiO2 06/07/16 08:03 132/57 06/07/16 08:02 74 132/57 06/07/16 08:02 74 132/57 06/07/16 08:00 95.9 74 18 132/57 99 Room Air 06/07/16 03:55 97.3 70 18 143/80 100 Room Air 06/07/16 00:00 97.6 80 18 131/63 96 Room Air 06/06/16 21:00 83 108/50 06/06/16 21:00 83 108/50 06/06/16 19:00 97.3 83 20 108/50 95 Room Air 06/06/16 16:00 97.3 78 20 140/57 96 Room Air 06/06/16 12:00 96.4 80 18 120/54 98 Room Air Height (Feet): 5 Height (Inches): 6.00 Weight (Pounds): 150 General Appearance: no acute distress HEENT: mucous membranes moist Respiratory/Chest: lungs clear Cardiovascular: normal rate Abdomen: soft, non tender Genitourinary: other - Patel catheter Extremities: no edema Skin: ulcers Neurologic/Psychiatric: other - sleeping Current Medications Medications (Trade) Dose Ordered Sig/Rupert Route PRN Reason Start Time Stop Time Status Last Admin Dose Admin Acetaminophen (Tylenol) 500 mg Q6H PRN ORAL Mild Pain/Temp > 100.5 05/30/16 20:15 06/29/16 20:14 05/30/16 21:06 Amino Acids/ Magnesium (Mg-Plus) 133 mg THREE TIMES A DAY ORAL 05/22/16 09:00 06/21/16 08:59 06/07/16 08:02 Amlodipine Besylate (Norvasc) 5 mg Q12HR ORAL 04/27/16 21:00 06/26/16 20:59 06/07/16 08:02 Anagrelide HCl (Agrylin) 0.5 mg TWICE A DAY ORAL 05/29/16 09:00 06/28/16 08:59 06/07/16 08:01 Atorvastatin Calcium (Lipitor) 20 mg BEDTIME ORAL 04/27/16 21:00 06/26/16 20:59 06/06/16 21:11 Carvedilol (Coreg) 6.25 mg EVERY 12 HOURS ORAL 05/17/16 09:00 06/16/16 08:59 06/07/16 08:02 Ferrous Sulfate (Feosol) 325 mg THREE TIMES A DAY ORAL 04/28/16 09:00 06/26/16 08:59 06/07/16 08:02 Heparin Sodium (Porcine) (Heparin 5000 units/ml) 5,000 units EVERY 12 HOURS SUBQ 04/27/16 21:00 06/26/16 20:59 06/07/16 08:11 Hydralazine HCl (Apresoline) 25 mg Q6H PRN ORAL prn sbp >160 05/20/16 09:00 06/19/16 08:59 05/28/16 09:38 Insulin Aspart (NovoLOG) BEFORE MEALS AND HS SUBQ 04/27/16 21:00 06/25/16 20:59 06/06/16 16:48 Lactobacillus Acidophilus (Culturelle) 1 tab Q8HR ORAL 04/27/16 22:00 06/26/16 21:59 06/07/16 06:22 Levothyroxine Sodium (Synthroid) 25 mcg DAILY@0630 ORAL 05/01/16 06:30 06/26/16 06:29 06/07/16 06:21 Levothyroxine Sodium (Synthroid) 150 mcg DAILY@0630 ORAL 05/01/16 06:30 06/26/16 06:29 06/07/16 06:21 Lisinopril (Prinivil) 40 mg DAILY ORAL 05/02/16 09:00 06/26/16 08:59 06/07/16 08:03 Memantine (Namenda) 10 mg DAILY ORAL 04/28/16 09:00 06/26/16 08:59 06/07/16 08:02 Metformin HCl (Glucophage) 1,000 mg BID ORAL 04/28/16 09:00 06/26/16 08:59 06/07/16 08:03 Nitrofurantoin (Macrobid) 100 mg EVERY 12 HOURS ORAL 06/05/16 13:00 07/05/16 12:59 06/07/16 08:01 Sodium Hypochlorite (Dakin's Full Strength) 1 applic DAILY TOPIC 05/29/16 16:00 06/28/16 15:59 06/07/16 08:04 EFRAIN GARCIA Jun 07, 2016 09:53
[2016-06-07 12:00] VITALS: BP 139/76
--- NOTE | 2016-06-07 14:31 | General Progress Note ---
Assessment/Plan Problem List: (1) Hyperglycemia ICD Codes: R73.9 - Hyperglycemia SNOMED: 48597833 (2) Altered mental status ICD Codes: R41.82 - Altered mental status SNOMED: 337681348 Qualifiers: Qualified Codes: R41.82 - Altered mental status, unspecified (3) Sepsis ICD Codes: A41.9 - Sepsis SNOMED: 46347262 (4) Altered mental status ICD Codes: R41.82 - Altered mental status, unspecified SNOMED: 205909846 Qualifiers: Qualified Codes: R41.0 - Disorientation, unspecified (5) Stroke ICD Codes: I63.9 - Stroke SNOMED: 505313015 Qualifiers: (6) Hypothyroid ICD Codes: E03.9 - Hypothyroid SNOMED: 46158481 Qualifiers: Qualified Codes: E03.9 - Hypothyroidism, unspecified (7) Decubitus ulcer, stage 4 with infection ICD Codes: L89.94 - Pressure ulcer of unspecified site, stage 4 SNOMED: 9745799, 040320586 Status: stable Assessment/Plan wound care/dressing- failed flap x 2 wound care- wet to dry turn q 2 cont current diabetes rx monitor bs bp rx monitor cbc stable for dc to snf. child support case officer looking for placement per case management accepting facility found in [place] but son "doesnt like that neighborhood" son would like to appeal will cont to monitor Subjective ROS Limited/Unobtainable: No Constitutional: Reports: malaise, weakness HEENT: Reports: no symptoms Cardiovascular: Reports: no symptoms Respiratory: Reports: no symptoms Gastrointestinal/Abdominal: Reports: no symptoms Genitourinary: Reports: no symptoms Neurologic/Psychiatric: Reports: pre-existing deficit Endocrine: Reports: no symptoms Hematologic/Lymphatic: Reports: no symptoms Allergies: Coded Allergies: HYDROMORPHONE (Verified Allergy, Unknown, 09/21/14) MORPHINE (Unverified Allergy, Unknown, 04/27/16) All Systems: reviewed and negative except above Subjective no events. no change, has wound vac, denies pain or sob. no new complaints. resting. Objective Last 24 Hour Vital Signs Date Time Temp Pulse Resp B/P Pulse Ox O2 Delivery O2 Flow Rate FiO2 06/07/16 12:00 96.1 68 18 139/76 96 Room Air 06/07/16 08:03 132/57 06/07/16 08:02 74 132/57 06/07/16 08:02 74 132/57 06/07/16 08:00 95.9 74 18 132/57 99 Room Air 06/07/16 03:55 97.3 70 18 143/80 100 Room Air 06/07/16 00:00 97.6 80 18 131/63 96 Room Air 06/06/16 21:00 83 108/50 06/06/16 21:00 83 108/50 06/06/16 19:00 97.3 83 20 108/50 95 Room Air 06/06/16 16:00 97.3 78 20 140/57 96 Room Air Intake and Output 06/06/16 06/07/16 19:00 07:00 Intake Total 960 ml 340 ml Output Total 900 ml 950 ml Balance 60 ml -610 ml Intake Oral 960 ml 340 ml Output Urine Total 900 ml 950 ml # Bowel Movements 1 1 Height (Feet): 5 Height (Inches): 6.00 Weight (Pounds): 150 Objective General Appearance: WD/WN, alert Neck: supple Cardiovascular: regular rhythm Respiratory/Chest: chest wall non-tender, lungs clear, normal breath sounds, no respiratory distress, no accessory muscle use Abdomen: normal bowel sounds, non tender, soft, no organomegaly, no mass Edema: no edema noted Arm (L), no edema noted Arm (R), no edema noted Leg (L), no edema noted Leg (R), no edema noted Pedal (L), no edema noted Pedal (R), no edema noted Generalized Objective bandage over sacrum ISIDORO BYRNE Jun 07, 2016 14:31
[2016-06-07 16:05] VITALS: BP 144/71
[2016-06-07 20:00] VITALS: BP 149/74
[2016-06-07] MEDS: Atorvastatin 20mg tab ORAL SCH (21:21)
[2016-06-08 00:10] VITALS: BP 129/59
--- NOTE | 2016-06-08 02:29 | Progress Note ---
DATE: 06/07/2016 CARDIOLOGY PROGRESS NOTE SUBJECTIVE: No shortness of breath. No chest pain. Ongoing wound care. Discharge planning in progress. Vital signs stable, exam without change. The patient remained stable from cardiovascular standpoint. She remains on anagrelide, the dosing will be titrated based on platelet count. Darius Duran M.D. DR: COREY JOB#: [id number] CC:
[2016-06-08 04:00] VITALS: BP 132/62
[2016-06-08] MEDS: Levothyroxine 25mcg tab ORAL SCH (05:33)
[2016-06-08] MEDS: NovoLOG Insulin Flexpen SUBQ SCH ×5 (05:34→21:58)
[2016-06-08] MEDS: Lactobacillus-GG tablet ORAL SCH ×4 (05:34→21:58)
[2016-06-08 06:34] LABS: BASOPHILS % (AUTO) 1.6 % (0.0-2.0); EOSINOPHILS % (AUTO) 1.4 % (0.0-3.0); LYMPHOCYTES % (AUTO) 33.5 % (20.0-45.0); MEAN CORPUSCULAR HEMOGLOBIN 26.3 PG (27.0-31.0); MEAN CORPUSCULAR HGB CONC 32.1 G/DL (32.0-36.0); MEAN CORPUSCULAR VOLUME 82 FL (80-99); MEAN PLATELET VOLUME 9.2 FL (6.5-10.1); MONOCYTES % (AUTO) 9.2 % (1.0-10.0); NEUTROPHILS % (AUTO) 54.1 % (45.0-75.0); PLATELET COUNT 573 K/UL (150-450); RED BLOOD COUNT 4.15 M/UL (4.20-5.40); WHITE BLOOD COUNT 11.7 K/UL (4.8-10.8)
[2016-06-08 07:23] LABS: ANION GAP 16 (5-15); CALCIUM 9.7 mg/dL (8.6-10.2); CARBON DIOXIDE 25 mEQ/L (20-30); CHLORIDE 95 mEQ/L (98-107); CREATININE 0.6 mg/dL (0.5-0.9); HEMOLYSIS 0; MAGNESIUM 1.5 mg/dL (1.7-2.5); POTASSIUM 4.7 mEQ/L (3.4-4.9); SODIUM 136 mEQ/L (135-145)
[2016-06-08 08:07] VITALS: BP 132/59
--- NOTE | 2016-06-08 08:07 | General Progress Note ---
Assessment/Plan Problem List: (1) Hyperglycemia ICD Codes: R73.9 - Hyperglycemia SNOMED: 85935319 (2) Altered mental status ICD Codes: R41.82 - Altered mental status SNOMED: 058665730 Qualifiers: Qualified Codes: R41.82 - Altered mental status, unspecified (3) Sepsis ICD Codes: A41.9 - Sepsis SNOMED: 34331853 (4) Altered mental status ICD Codes: R41.82 - Altered mental status, unspecified SNOMED: 064615373 Qualifiers: Qualified Codes: R41.0 - Disorientation, unspecified (5) Stroke ICD Codes: I63.9 - Stroke SNOMED: 264723229 Qualifiers: (6) Hypothyroid ICD Codes: E03.9 - Hypothyroid SNOMED: 60359844 Qualifiers: Qualified Codes: E03.9 - Hypothyroidism, unspecified (7) Decubitus ulcer, stage 4 with infection ICD Codes: L89.94 - Pressure ulcer of unspecified site, stage 4 SNOMED: 0602386, 618484480 Status: stable, progressing Assessment/Plan wound care/dressing- failed flap x 2 wound care- wet to dry now turn q 2 cont current diabetes rx monitor bs bp rx monitor cbc stable for dc to snf. family independence case manager looking for placement per case management accepting facility found in [place] but son "doesnt like that neighborhood" son would like to appeal will cont to monitor Subjective ROS Limited/Unobtainable: Yes Constitutional: Reports: weakness HEENT: Reports: no symptoms Cardiovascular: Reports: no symptoms Respiratory: Reports: no symptoms Gastrointestinal/Abdominal: Reports: no symptoms Genitourinary: Reports: no symptoms Neurologic/Psychiatric: Reports: pre-existing deficit Endocrine: Reports: no symptoms Hematologic/Lymphatic: Reports: no symptoms Allergies: Coded Allergies: HYDROMORPHONE (Verified Allergy, Unknown, 09/21/14) MORPHINE (Unverified Allergy, Unknown, 04/27/16) All Systems: reviewed and negative except above Subjective no events. no change, has wound vac, denies pain or sob. no new complaints. resting. stable. son appealed dc Objective Last 24 Hour Vital Signs Date Time Temp Pulse Resp B/P Pulse Ox O2 Delivery O2 Flow Rate FiO2 06/08/16 04:00 97.9 71 20 132/62 96 Room Air 06/08/16 00:10 97.5 71 20 129/59 98 Room Air 06/07/16 21:23 88 149/74 06/07/16 21:22 88 149/74 06/07/16 20:00 98.1 88 22 149/74 95 Room Air 06/07/16 16:05 97.9 72 20 144/71 99 Room Air 06/07/16 12:00 96.1 68 18 139/76 96 Room Air Intake and Output 06/07/16 06/08/16 19:00 07:00 Intake Total 600 ml Output Total 800 ml 725 ml Balance -200 ml -725 ml Intake Oral 600 ml Output Urine Total 800 ml 725 ml # Voids 1 # Bowel Movements 1 Laboratory Tests 06/08/16 04:25: White Blood Count 11.7H, Red Blood Count 4.15L, Hemoglobin 10.9L, Hematocrit 33.9L, Mean Corpuscular Volume 82, Mean Corpuscular Hemoglobin 26.3L, Mean Corpuscular Hemoglobin Concent 32.1, Red Cell Distribution Width 16.0H, Platelet Count 573H, Mean Platelet Volume 9.2, Neutrophils (%) (Auto) 54.1, Lymphocytes (%) (Auto) 33.5, Monocytes (%) (Auto) 9.2, Eosinophils (%) (Auto) 1.4, Basophils (%) (Auto) 1.6, Sodium Level 136, Potassium Level 4.7, Chloride Level 95L, Carbon Dioxide Level 25, Anion Gap 16H, Blood Urea Nitrogen 19, Creatinine 0.6, Estimat Glomerular Filtration Rate , Glucose Level 83, Calcium Level 9.7, Magnesium Level 1.5L Height (Feet): 5 Height (Inches): 6.00 Weight (Pounds): 150 Objective General Appearance: WD/WN, alert Neck: supple Cardiovascular: regular rhythm Respiratory/Chest: chest wall non-tender, lungs clear, normal breath sounds, no respiratory distress, no accessory muscle use Abdomen: normal bowel sounds, non tender, soft, no organomegaly, no mass Edema: no edema noted Arm (L), no edema noted Arm (R), no edema noted Leg (L), no edema noted Leg (R), no edema noted Pedal (L), no edema noted Pedal (R), no edema noted Generalized Objective bandage over sacrum ISIDORO BYRNE Jun 08, 2016 08:07
[2016-06-08] MEDS: Carvedilol 6.25mg Tab ORAL SCH ×3 (09:36→21:57)
[2016-06-08] MEDS: ANAGRELIDE 0.5 MG ORAL SCH ×3 (09:36→21:56)
[2016-06-08] MEDS: Memantine 10mg tab ORAL SCH (09:36)
[2016-06-08] MEDS: Lisinopril 20mg tab ORAL SCH (09:36)
[2016-06-08] MEDS: Mag Plus Protein 133mg Tab ORAL SCH ×3 (09:36→17:23)
[2016-06-08] MEDS: metFORMIN 500mg tab ORAL SCH ×2 (09:36→17:23)
[2016-06-08] MEDS: Dakin's 0.5% (Full Strength) 16oz TOPIC SCH (09:37)
[2016-06-08] MEDS: Heparin 5000 units/ml inj SUBQ SCH ×3 (09:40→21:58)
--- NOTE | 2016-06-08 10:04 | Infectious Diseases Prog Note ---
Assessment/Plan Assessment/Plan A; Complicated UTI with Proteus & E.coli Leukocytosis DM HPN MRSA & VRE colonization P: Continue Nitrofurantoin X 3 days Waiting for placement Subjective ROS Limited/Unobtainable: Yes Allergies: Coded Allergies: HYDROMORPHONE (Verified Allergy, Unknown, 09/21/14) MORPHINE (Unverified Allergy, Unknown, 04/27/16) Objective Vital Signs Last 24 Hour Vital Signs Date Time Temp Pulse Resp B/P Pulse Ox O2 Delivery O2 Flow Rate FiO2 06/08/16 09:42 75 132/59 06/08/16 09:36 75 132/59 06/08/16 09:36 132/59 06/08/16 08:07 97.9 75 19 132/59 97 Room Air 06/08/16 04:00 97.9 71 20 132/62 96 Room Air 06/08/16 00:10 97.5 71 20 129/59 98 Room Air 06/07/16 21:23 88 149/74 06/07/16 21:22 88 149/74 06/07/16 20:00 98.1 88 22 149/74 95 Room Air 06/07/16 16:05 97.9 72 20 144/71 99 Room Air 06/07/16 12:00 96.1 68 18 139/76 96 Room Air Height (Feet): 5 Height (Inches): 6.00 Weight (Pounds): 150 General Appearance: no acute distress HEENT: mucous membranes moist Respiratory/Chest: lungs clear Cardiovascular: normal rate Abdomen: soft, non tender Extremities: no edema Skin: ulcers Neurologic/Psychiatric: abnormal gait, responsive Laboratory Tests Test 06/08/16 04:25 White Blood Count 11.7 K/UL (4.8-10.8) H Red Blood Count 4.15 M/UL (4.20-5.40) L Hemoglobin 10.9 G/DL (12.0-16.0) L Hematocrit 33.9 % (37.0-47.0) L Mean Corpuscular Volume 82 FL (80-99) Mean Corpuscular Hemoglobin 26.3 PG (27.0-31.0) L Mean Corpuscular Hemoglobin Concent 32.1 G/DL (32.0-36.0) Red Cell Distribution Width 16.0 % (11.6-14.8) H Platelet Count 573 K/UL (150-450) H Mean Platelet Volume 9.2 FL (6.5-10.1) Neutrophils (%) (Auto) 54.1 % (45.0-75.0) Lymphocytes (%) (Auto) 33.5 % (20.0-45.0) Monocytes (%) (Auto) 9.2 % (1.0-10.0) Eosinophils (%) (Auto) 1.4 % (0.0-3.0) Basophils (%) (Auto) 1.6 % (0.0-2.0) Sodium Level 136 mEQ/L (135-145) Potassium Level 4.7 mEQ/L (3.4-4.9) Chloride Level 95 mEQ/L (98-107) L Carbon Dioxide Level 25 mEQ/L (20-30) Anion Gap 16 (5-15) H Blood Urea Nitrogen 19 mg/dL (7-23) Creatinine 0.6 mg/dL (0.5-0.9) Estimat Glomerular Filtration Rate mL/min (>60) Glucose Level 83 mg/dL (74-106) Calcium Level 9.7 mg/dL (8.6-10.2) Magnesium Level 1.5 mg/dL (1.7-2.5) L Current Medications Medications (Trade) Dose Ordered Sig/Rupert Route PRN Reason Start Time Stop Time Status Last Admin Dose Admin Acetaminophen (Tylenol) 500 mg Q6H PRN ORAL Mild Pain/Temp > 100.5 05/30/16 20:15 06/29/16 20:14 05/30/16 21:06 Amino Acids/ Magnesium (Mg-Plus) 133 mg THREE TIMES A DAY ORAL 05/22/16 09:00 06/21/16 08:59 06/08/16 09:36 Amlodipine Besylate (Norvasc) 5 mg Q12HR ORAL 04/27/16 21:00 06/26/16 20:59 06/08/16 09:42 Anagrelide HCl (Agrylin) 0.5 mg TWICE A DAY ORAL 05/29/16 09:00 06/28/16 08:59 06/08/16 09:36 Atorvastatin Calcium (Lipitor) 20 mg BEDTIME ORAL 04/27/16 21:00 06/26/16 20:59 06/07/16 21:21 Carvedilol (Coreg) 6.25 mg EVERY 12 HOURS ORAL 05/17/16 09:00 06/16/16 08:59 06/08/16 09:36 Ferrous Sulfate (Feosol) 325 mg THREE TIMES A DAY ORAL 04/28/16 09:00 06/26/16 08:59 06/08/16 09:36 Heparin Sodium (Porcine) (Heparin 5000 units/ml) 5,000 units EVERY 12 HOURS SUBQ 04/27/16 21:00 06/26/16 20:59 06/08/16 09:40 Hydralazine HCl (Apresoline) 25 mg Q6H PRN ORAL prn sbp >160 05/20/16 09:00 06/19/16 08:59 05/28/16 09:38 Insulin Aspart (NovoLOG) BEFORE MEALS AND HS SUBQ 04/27/16 21:00 06/25/16 20:59 06/07/16 21:25 Lactobacillus Acidophilus (Culturelle) 1 tab Q8HR ORAL 04/27/16 22:00 06/26/16 21:59 06/08/16 05:34 Levothyroxine Sodium (Synthroid) 25 mcg DAILY@0630 ORAL 05/01/16 06:30 06/26/16 06:29 06/08/16 05:33 Levothyroxine Sodium (Synthroid) 150 mcg DAILY@0630 ORAL 05/01/16 06:30 06/26/16 06:29 06/08/16 05:34 Lisinopril (Prinivil) 40 mg DAILY ORAL 05/02/16 09:00 06/26/16 08:59 06/08/16 09:36 Memantine (Namenda) 10 mg DAILY ORAL 04/28/16 09:00 06/26/16 08:59 06/08/16 09:36 Metformin HCl (Glucophage) 1,000 mg BID ORAL 04/28/16 09:00 06/26/16 08:59 06/08/16 09:36 Nitrofurantoin (Macrobid) 100 mg EVERY 12 HOURS ORAL 06/05/16 13:00 07/05/16 12:59 06/08/16 09:36 Sodium Hypochlorite (Dakin's Full Strength) 1 applic DAILY TOPIC 05/29/16 16:00 06/28/16 15:59 06/08/16 09:37 EFRAIN GARCIA Jun 08, 2016 10:04
[2016-06-08] MEDS ORDERED: NS 275ml ONE (10:58)
[2016-06-08] MEDS ORDERED: Tubing IV Secondary IV ONE (10:58)
[2016-06-08 11:56] VITALS: BP 130/62
[2016-06-08] MEDS: Acetaminophen 500mg (ES) tab ORAL PRN (13:51)
[2016-06-08 16:56] VITALS: BP 114/53
[2016-06-08 20:00] VITALS: BP 147/68
[2016-06-08] MEDS: Atorvastatin 20mg tab ORAL SCH ×2 (21:45→21:57)
--- NOTE | 2016-06-08 22:29 | Progress Note ---
DATE: 06/08/2016 SUBJECTIVE: The patient has no new distress. Discharge planning is ongoing. Vital signs remained stable. The patient without signs of uncontrolled blood pressure. LABORATORY DATA: Notable for white count of 11.7, hemoglobin 10.9, and platelet count 573,000. Potassium 4.7, BUN 19, and creatinine 0.6. Magnesium 1.5. IMPRESSION: 1. Hypertensive heart disease with adequate blood pressure control. 2. Oog-jfgshrm-xnhiimkbi diabetes mellitus with good glucose control. 3. Hypomagnesemia, recurring. 4. Thrombocytosis, worsening. PLAN: IV magnesium. Advance anagrelide dosing. No change in cardiovascular therapy. Wound care. Discharge planning. Darius Duran M.D. DR: FLORIDALMA JOB#: [id number] CC:
[2016-06-09] VITALS (8 sets, daily range): BP systolic 125–162; BP diastolic 63–77
[2016-06-09] MEDS: Levothyroxine 25mcg tab ORAL SCH (05:47)
[2016-06-09] MEDS: Lactobacillus-GG tablet ORAL SCH ×3 (05:48→22:33)
[2016-06-09] MEDS: NovoLOG Insulin Flexpen SUBQ SCH ×4 (06:04→20:46)
[2016-06-09] MEDS: Carvedilol 6.25mg Tab ORAL SCH ×2 (08:47→20:44)
[2016-06-09] MEDS: metFORMIN 500mg tab ORAL SCH ×2 (08:47→18:20)
[2016-06-09] MEDS: Mag Plus Protein 133mg Tab ORAL SCH ×3 (08:47→18:19)
[2016-06-09] MEDS: Lisinopril 20mg tab ORAL SCH (08:49)
[2016-06-09] MEDS: Memantine 10mg tab ORAL SCH (08:49)
[2016-06-09] MEDS: ANAGRELIDE 0.5 MG ORAL SCH ×3 (08:51→18:20)
[2016-06-09] MEDS: Dakin's 0.5% (Full Strength) 16oz TOPIC SCH (08:53)
[2016-06-09] MEDS: Heparin 5000 units/ml inj SUBQ SCH ×2 (08:53→20:46)
--- NOTE | 2016-06-09 10:15 | General Progress Note ---
Assessment/Plan Problem List: (1) Hyperglycemia ICD Codes: R73.9 - Hyperglycemia SNOMED: 99599399 (2) Altered mental status ICD Codes: R41.82 - Altered mental status SNOMED: 236820417 Qualifiers: Qualified Codes: R41.82 - Altered mental status, unspecified (3) Sepsis ICD Codes: A41.9 - Sepsis SNOMED: 18437101 (4) Altered mental status ICD Codes: R41.82 - Altered mental status, unspecified SNOMED: 987037877 Qualifiers: Qualified Codes: R41.0 - Disorientation, unspecified (5) Stroke ICD Codes: I63.9 - Stroke SNOMED: 099705629 Qualifiers: (6) Hypothyroid ICD Codes: E03.9 - Hypothyroid SNOMED: 96719612 Qualifiers: Qualified Codes: E03.9 - Hypothyroidism, unspecified (7) Decubitus ulcer, stage 4 with infection ICD Codes: L89.94 - Pressure ulcer of unspecified site, stage 4 SNOMED: 4305906, 387509992 Status: stable, progressing Assessment/Plan wound care/dressing- failed flap x 2 wound care- wet to dry now turn q 2 cont current diabetes rx monitor bs bp rx monitor cbc stable for dc to snf. protective services case worker looking for placement per case management accepting facility found in [place] but son "doesnt like that neighborhood" son would like to appeal will cont to monitor pt remains medically stable for lower level of care Subjective ROS Limited/Unobtainable: No Constitutional: Reports: malaise, weakness HEENT: Reports: no symptoms Cardiovascular: Reports: no symptoms Respiratory: Reports: no symptoms Gastrointestinal/Abdominal: Reports: no symptoms Genitourinary: Reports: no symptoms Neurologic/Psychiatric: Reports: pre-existing deficit Endocrine: Reports: no symptoms Hematologic/Lymphatic: Reports: no symptoms Allergies: Coded Allergies: HYDROMORPHONE (Verified Allergy, Unknown, 09/21/14) MORPHINE (Unverified Allergy, Unknown, 04/27/16) All Systems: reviewed and negative except above Subjective no events. no change, has wound vac, denies pain or sob. no new complaints. resting. stable. son appealed dc Objective Last 24 Hour Vital Signs Date Time Temp Pulse Resp B/P Pulse Ox O2 Delivery O2 Flow Rate FiO2 06/09/16 08:49 162/77 06/09/16 08:48 72 162/77 06/09/16 08:47 72 162/77 06/09/16 08:45 97.7 72 19 162/77 96 Room Air 06/09/16 03:39 97.7 75 18 151/72 96 Room Air 06/09/16 00:00 97.9 78 18 155/70 95 Room Air 06/08/16 20:00 98.9 70 20 147/68 96 Room Air 06/08/16 16:56 114/53 06/08/16 16:55 97.3 68 20 96 06/08/16 14:50 100.2 06/08/16 11:56 100.2 68 18 130/62 95 Room Air Intake and Output 06/08/16 06/09/16 19:00 07:00 Intake Total 240 ml 470 ml Output Total 900 ml Balance 240 ml -430 ml Intake Oral 240 ml 470 ml Output Urine Total 900 ml # Voids 1 Height (Feet): 5 Height (Inches): 6.00 Weight (Pounds): 150 Objective General Appearance: WD/WN, alert Neck: supple Cardiovascular: regular rhythm Respiratory/Chest: chest wall non-tender, lungs clear, normal breath sounds, no respiratory distress, no accessory muscle use Abdomen: normal bowel sounds, non tender, soft, no organomegaly, no mass Edema: no edema noted Arm (L), no edema noted Arm (R), no edema noted Leg (L), no edema noted Leg (R), no edema noted Pedal (L), no edema noted Pedal (R), no edema noted Generalized Objective bandage over sacrum ISIDORO BYRNE Jun 09, 2016 10:15
--- NOTE | 2016-06-09 11:42 | Infectious Diseases Prog Note ---
"Assessment/Plan Assessment/Plan antibiotics : macrobid A 1. 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 CVA 5. DM 6. HTN 7. proteus | e.coli UTI P 1. continue macrobid 2 more days 2. will follow up cultures Subjective Constitutional: Denies: chills, fever Respiratory: Denies: dry cough, shortness of breath Gastrointestinal/Abdominal: Denies: diarrhea, nausea, vomiting Musculoskeletal: Denies: pain Allergies: Coded Allergies: HYDROMORPHONE (Verified Allergy, Unknown, 09/21/14) MORPHINE (Unverified Allergy, Unknown, 04/27/16) Objective Vital Signs Last 24 Hour Vital Signs Date Time Temp Pulse Resp B/P Pulse Ox O2 Delivery O2 Flow Rate FiO2 06/09/16 09:30 79 126/63 06/09/16 08:49 162/77 06/09/16 08:48 72 162/77 06/09/16 08:47 72 162/77 06/09/16 08:45 97.7 72 19 162/77 96 Room Air 06/09/16 03:39 97.7 75 18 151/72 96 Room Air 06/09/16 00:00 97.9 78 18 155/70 95 Room Air 06/08/16 20:00 98.9 70 20 147/68 96 Room Air 06/08/16 16:56 114/53 06/08/16 16:55 97.3 68 20 96 06/08/16 14:50 100.2 06/08/16 11:56 100.2 68 18 130/62 95 Room Air Height (Feet): 5 Height (Inches): 6.00 Weight (Pounds): 150 Respiratory/Chest: lungs clear Cardiovascular: normal rate, regular rhythm, no gallop/murmur Abdomen: soft, non tender Extremities: no edema ALESSIO KRISHNAMURTHY Jun 09, 2016 11:42"
[2016-06-09] MEDS: Atorvastatin 20mg tab ORAL SCH (20:44)
--- NOTE | 2016-06-09 21:59 | Progress Note ---
DATE: 06/09/2016 CARDIOLOGY PROGRESS NOTE: SUBJECTIVE: The patient continues to have difficulty with placement in a [place] [facility] facility. She cannot return home because of inadequate care. Vital signs are stable. Glucose is controlled. Exam is otherwise without change. Her anagrelide dose was adjusted yesterday because of her platelet count beginning to increase again. We will follow platelet count as clinically appropriate and adjust therapy further. Cardiovascular medications are reviewed and updated. Darius Duran M.D. DR: César JOB#: [id number] CC:
[2016-06-10] VITALS: BP 115/56
[2016-06-10 04:00] VITALS: BP 138/68
[2016-06-10] MEDS: Levothyroxine 25mcg tab ORAL SCH (06:04)
[2016-06-10] MEDS: Lactobacillus-GG tablet ORAL SCH ×3 (06:04→21:57)
[2016-06-10] MEDS: NovoLOG Insulin Flexpen SUBQ SCH ×4 (06:29→21:59)
[2016-06-10 08:00] VITALS: BP 156/69
[2016-06-10] MEDS: Carvedilol 6.25mg Tab ORAL SCH ×2 (08:39→22:00)
[2016-06-10] MEDS: ANAGRELIDE 0.5 MG ORAL SCH ×3 (08:39→18:40)
[2016-06-10] MEDS: Mag Plus Protein 133mg Tab ORAL SCH ×3 (08:39→18:40)
[2016-06-10] MEDS: metFORMIN 500mg tab ORAL SCH ×2 (08:39→18:40)
[2016-06-10] MEDS: Memantine 10mg tab ORAL SCH (08:39)
[2016-06-10] MEDS: Lisinopril 20mg tab ORAL SCH (08:40)
[2016-06-10] MEDS: Heparin 5000 units/ml inj SUBQ SCH ×2 (08:41→22:00)
[2016-06-10] MEDS: Dakin's 0.5% (Full Strength) 16oz TOPIC SCH (08:42)
--- NOTE | 2016-06-10 08:43 | General Progress Note ---
Assessment/Plan Problem List: (1) Hyperglycemia ICD Codes: R73.9 - Hyperglycemia SNOMED: 81187850 (2) Altered mental status ICD Codes: R41.82 - Altered mental status SNOMED: 173918888 Qualifiers: Qualified Codes: R41.82 - Altered mental status, unspecified (3) Sepsis ICD Codes: A41.9 - Sepsis SNOMED: 26475688 (4) Altered mental status ICD Codes: R41.82 - Altered mental status, unspecified SNOMED: 252010662 Qualifiers: Qualified Codes: R41.0 - Disorientation, unspecified (5) Stroke ICD Codes: I63.9 - Stroke SNOMED: 295303824 Qualifiers: (6) Hypothyroid ICD Codes: E03.9 - Hypothyroid SNOMED: 72472093 Qualifiers: Qualified Codes: E03.9 - Hypothyroidism, unspecified (7) Decubitus ulcer, stage 4 with infection ICD Codes: L89.94 - Pressure ulcer of unspecified site, stage 4 SNOMED: 2789180, 353151678 Status: stable, progressing Assessment/Plan wound care/dressing- failed flap x 2 wound care- wet to dry now turn q 2. despite repositioning staff states pt turns back on to her behind cont current diabetes rx monitor bs bp rx monitor cbc stable for dc to snf. manager rn case looking for placement per case management accepting facility found in [place] but son "doesnt like that neighborhood" son would like to appeal will cont to monitor pt remains medically stable for lower level of care Subjective ROS Limited/Unobtainable: No Constitutional: Reports: malaise, weakness HEENT: Reports: no symptoms Cardiovascular: Reports: no symptoms Respiratory: Reports: no symptoms Gastrointestinal/Abdominal: Reports: no symptoms Genitourinary: Reports: no symptoms Neurologic/Psychiatric: Reports: pre-existing deficit Endocrine: Reports: no symptoms Hematologic/Lymphatic: Reports: no symptoms Allergies: Coded Allergies: HYDROMORPHONE (Verified Allergy, Unknown, 09/21/14) MORPHINE (Unverified Allergy, Unknown, 04/27/16) All Systems: reviewed and negative except above Subjective no events. no change, on wet to dry, denies pain or sob. no new complaints. resting. stable. appeal declined by medicare. Objective Last 24 Hour Vital Signs Date Time Temp Pulse Resp B/P Pulse Ox O2 Delivery O2 Flow Rate FiO2 06/10/16 08:00 98.1 73 20 156/69 96 Room Air 06/10/16 04:00 97.7 72 19 138/68 95 Room Air 06/10/16 00:00 97.3 76 20 115/56 95 Room Air 06/09/16 20:44 81 137/69 06/09/16 20:44 81 137/69 06/09/16 20:30 97.7 81 20 137/69 96 Room Air 06/09/16 20:00 97.7 81 20 137/69 96 Room Air 06/09/16 16:00 97.9 83 20 128/66 96 Room Air 06/09/16 12:02 97.5 90 19 125/70 96 Room Air 06/09/16 09:30 79 126/63 06/09/16 08:49 162/77 06/09/16 08:48 72 162/77 06/09/16 08:47 72 162/77 06/09/16 08:45 97.7 72 19 162/77 96 Room Air Intake and Output 06/09/16 06/10/16 19:00 07:00 Intake Total 480 ml 240 ml Output Total 500 ml 450 ml Balance -20 ml -210 ml Intake Oral 480 ml 240 ml Output Urine Total 500 ml 450 ml # Bowel Movements 1 Height (Feet): 5 Height (Inches): 6.00 Weight (Pounds): 150 Objective General Appearance: WD/WN, alert Neck: supple Cardiovascular: regular rhythm Respiratory/Chest: chest wall non-tender, lungs clear, normal breath sounds, no respiratory distress, no accessory muscle use Abdomen: normal bowel sounds, non tender, soft, no organomegaly, no mass Edema: no edema noted Arm (L), no edema noted Arm (R), no edema noted Leg (L), no edema noted Leg (R), no edema noted Pedal (L), no edema noted Pedal (R), no edema noted Generalized Objective bandage over sacrum ISIDORO BYRNE Jun 10, 2016 08:43
--- NOTE | 2016-06-10 09:56 | Infectious Diseases Prog Note ---
"Assessment/Plan Assessment/Plan antibiotics : macrobid A 1. 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 CVA 5. DM 6. HTN 7. proteus | e.coli UTI P 1. continue macrobid 1 more day 2. will follow up cultures Subjective ROS Limited/Unobtainable: Yes Allergies: Coded Allergies: HYDROMORPHONE (Verified Allergy, Unknown, 09/21/14) MORPHINE (Unverified Allergy, Unknown, 04/27/16) Objective Vital Signs Last 24 Hour Vital Signs Date Time Temp Pulse Resp B/P Pulse Ox O2 Delivery O2 Flow Rate FiO2 06/10/16 08:40 156/69 06/10/16 08:39 73 156/69 06/10/16 08:39 73 156/69 06/10/16 08:00 98.1 73 20 156/69 96 Room Air 06/10/16 04:00 97.7 72 19 138/68 95 Room Air 06/10/16 00:00 97.3 76 20 115/56 95 Room Air 06/09/16 20:44 81 137/69 06/09/16 20:44 81 137/69 06/09/16 20:30 97.7 81 20 137/69 96 Room Air 06/09/16 20:00 97.7 81 20 137/69 96 Room Air 06/09/16 16:00 97.9 83 20 128/66 96 Room Air 06/09/16 12:02 97.5 90 19 125/70 96 Room Air Height (Feet): 5 Height (Inches): 6.00 Weight (Pounds): 150 Respiratory/Chest: lungs clear Cardiovascular: normal rate, regular rhythm, no gallop/murmur Abdomen: soft, non tender Extremities: no edema ALESSIO KRISHNAMURTHY Jun 10, 2016 09:56"
[2016-06-10 12:00] VITALS: BP 141/68
[2016-06-10 16:00] VITALS: BP 126/62
[2016-06-10 19:00] VITALS: BP 120/59
[2016-06-10] MEDS: Atorvastatin 20mg tab ORAL SCH (21:57)
[2016-06-11] VITALS: BP 136/63
[2016-06-11] MEDS: Acetaminophen 500mg (ES) tab ORAL PRN (00:50)
[2016-06-11 04:00] VITALS: BP 142/67
[2016-06-11] MEDS: Lactobacillus-GG tablet ORAL SCH ×3 (06:12→21:26)
[2016-06-11] MEDS: Levothyroxine 25mcg tab ORAL SCH (06:12)
[2016-06-11] MEDS: NovoLOG Insulin Flexpen SUBQ SCH ×4 (06:13→21:07)
[2016-06-11 08:00] VITALS: BP 130/61
[2016-06-11] MEDS: Heparin 5000 units/ml inj SUBQ SCH ×2 (08:26→20:03)
[2016-06-11] MEDS: Carvedilol 6.25mg Tab ORAL SCH ×2 (08:28→20:01)
[2016-06-11] MEDS: Mag Plus Protein 133mg Tab ORAL SCH ×3 (08:28→17:44)
[2016-06-11] MEDS: Memantine 10mg tab ORAL SCH (08:29)
[2016-06-11] MEDS: ANAGRELIDE 0.5 MG ORAL SCH ×3 (08:30→17:44)
[2016-06-11] MEDS: Lisinopril 20mg tab ORAL SCH (08:30)
[2016-06-11] MEDS: Dakin's 0.5% (Full Strength) 16oz TOPIC SCH (08:31)
[2016-06-11] MEDS: metFORMIN 500mg tab ORAL SCH ×2 (08:39→17:44)
--- NOTE | 2016-06-11 10:34 | Infectious Diseases Prog Note ---
Assessment/Plan Assessment/Plan A; Complicated UTI s/p Rx Leukocytosis DM HPN MRSA & VRE colonization P: discontinue Nitrofurantoin Waiting for placement Subjective ROS Limited/Unobtainable: Yes Constitutional: Reports: no symptoms Allergies: Coded Allergies: HYDROMORPHONE (Verified Allergy, Unknown, 09/21/14) MORPHINE (Unverified Allergy, Unknown, 04/27/16) Objective Vital Signs Last 24 Hour Vital Signs Date Time Temp Pulse Resp B/P Pulse Ox O2 Delivery O2 Flow Rate FiO2 06/11/16 08:30 130/61 06/11/16 08:29 77 130/61 06/11/16 08:28 77 130/61 06/11/16 08:00 98.1 77 19 130/61 97 Room Air 06/11/16 04:00 97.0 72 20 142/67 96 Room Air 06/11/16 00:00 98.2 73 22 136/63 96 Room Air 06/10/16 22:00 87 120/59 06/10/16 21:57 87 120/59 06/10/16 19:00 97.0 87 20 120/59 99 Room Air 06/10/16 16:00 98.1 98 20 126/62 96 Room Air 06/10/16 12:00 97.5 75 18 141/68 97 Room Air Height (Feet): 5 Height (Inches): 6.00 Weight (Pounds): 150 General Appearance: no acute distress HEENT: mucous membranes moist Respiratory/Chest: lungs clear Cardiovascular: normal rate Abdomen: soft, non tender Extremities: no edema Neurologic/Psychiatric: alert, responsive Current Medications Medications (Trade) Dose Ordered Sig/Rupert Route PRN Reason Start Time Stop Time Status Last Admin Dose Admin Acetaminophen (Tylenol) 500 mg Q6H PRN ORAL Mild Pain/Temp > 100.5 05/30/16 20:15 06/29/16 20:14 06/11/16 00:50 Amino Acids/ Magnesium (Mg-Plus) 133 mg THREE TIMES A DAY ORAL 05/22/16 09:00 06/21/16 08:59 06/11/16 08:28 Amlodipine Besylate (Norvasc) 5 mg Q12HR ORAL 04/27/16 21:00 06/26/16 20:59 06/11/16 08:29 Anagrelide HCl (Agrylin) 0.5 mg TID ORAL 06/08/16 22:00 07/08/16 21:59 06/11/16 08:30 Atorvastatin Calcium (Lipitor) 20 mg BEDTIME ORAL 04/27/16 21:00 06/26/16 20:59 06/10/16 21:57 Carvedilol (Coreg) 6.25 mg EVERY 12 HOURS ORAL 05/17/16 09:00 06/16/16 08:59 06/11/16 08:28 Ferrous Sulfate (Feosol) 325 mg THREE TIMES A DAY ORAL 04/28/16 09:00 06/26/16 08:59 06/11/16 08:28 Heparin Sodium (Porcine) (Heparin 5000 units/ml) 5,000 units EVERY 12 HOURS SUBQ 04/27/16 21:00 06/26/16 20:59 06/11/16 08:26 Hydralazine HCl (Apresoline) 25 mg Q6H PRN ORAL prn sbp >160 05/20/16 09:00 06/19/16 08:59 05/28/16 09:38 Insulin Aspart (NovoLOG) BEFORE MEALS AND HS SUBQ 04/27/16 21:00 06/25/16 20:59 06/10/16 21:59 Lactobacillus Acidophilus (Culturelle) 1 tab Q8HR ORAL 04/27/16 22:00 06/26/16 21:59 06/11/16 06:12 Levothyroxine Sodium (Synthroid) 25 mcg DAILY@0630 ORAL 05/01/16 06:30 06/26/16 06:29 06/11/16 06:12 Levothyroxine Sodium (Synthroid) 150 mcg DAILY@0630 ORAL 05/01/16 06:30 06/26/16 06:29 06/11/16 06:12 Lisinopril (Prinivil) 40 mg DAILY ORAL 05/02/16 09:00 06/26/16 08:59 06/11/16 08:30 Memantine (Namenda) 10 mg DAILY ORAL 04/28/16 09:00 06/26/16 08:59 06/11/16 08:29 Metformin HCl (Glucophage) 1,000 mg BID ORAL 04/28/16 09:00 06/26/16 08:59 06/11/16 08:39 Nitrofurantoin (Macrobid) 100 mg EVERY 12 HOURS ORAL 06/05/16 13:00 06/11/16 23:59 06/11/16 08:28 Sodium Hypochlorite (Dakin's Full Strength) 1 applic DAILY TOPIC 05/29/16 16:00 06/28/16 15:59 06/11/16 08:31 EFRAIN GARCIA Jun 11, 2016 10:34
--- NOTE | 2016-06-11 10:52 | General Progress Note ---
Assessment/Plan Problem List: (1) Hyperglycemia ICD Codes: R73.9 - Hyperglycemia SNOMED: 39489447 (2) Altered mental status ICD Codes: R41.82 - Altered mental status SNOMED: 952147015 Qualifiers: Qualified Codes: R41.82 - Altered mental status, unspecified (3) Sepsis ICD Codes: A41.9 - Sepsis SNOMED: 79549609 (4) Altered mental status ICD Codes: R41.82 - Altered mental status, unspecified SNOMED: 304392819 Qualifiers: Qualified Codes: R41.0 - Disorientation, unspecified (5) Stroke ICD Codes: I63.9 - Stroke SNOMED: 201776813 Qualifiers: (6) Hypothyroid ICD Codes: E03.9 - Hypothyroid SNOMED: 27288531 Qualifiers: Qualified Codes: E03.9 - Hypothyroidism, unspecified (7) Decubitus ulcer, stage 4 with infection ICD Codes: L89.94 - Pressure ulcer of unspecified site, stage 4 SNOMED: 6532786, 861384399 Status: stable Assessment/Plan wound care/dressing- failed flap x 2 wound care- wet to dry now turn q 2. despite repositioning staff states pt turns back on to her behind cont current diabetes rx monitor bs bp rx monitor cbc stable for dc to snf. rn case mgr looking for placement per case management accepting facility found in [place] but son "doesnt like that neighborhood" son would like to appeal will cont to monitor pt remains medically stable for lower level of care Subjective ROS Limited/Unobtainable: No Constitutional: Reports: weakness HEENT: Reports: no symptoms Cardiovascular: Reports: no symptoms Respiratory: Reports: no symptoms Gastrointestinal/Abdominal: Reports: no symptoms Genitourinary: Reports: no symptoms Neurologic/Psychiatric: Reports: pre-existing deficit Endocrine: Reports: no symptoms Hematologic/Lymphatic: Reports: no symptoms Allergies: Coded Allergies: HYDROMORPHONE (Verified Allergy, Unknown, 09/21/14) MORPHINE (Unverified Allergy, Unknown, 04/27/16) All Systems: reviewed and negative except above Subjective no events. no change, on wet to dry, denies pain or sob. no new complaints. resting. stable. appeal declined by medicare. Objective Last 24 Hour Vital Signs Date Time Temp Pulse Resp B/P Pulse Ox O2 Delivery O2 Flow Rate FiO2 06/11/16 08:30 130/61 06/11/16 08:29 77 130/61 06/11/16 08:28 77 130/61 06/11/16 08:00 98.1 77 19 130/61 97 Room Air 06/11/16 04:00 97.0 72 20 142/67 96 Room Air 06/11/16 00:00 98.2 73 22 136/63 96 Room Air 06/10/16 22:00 87 120/59 06/10/16 21:57 87 120/59 06/10/16 19:00 97.0 87 20 120/59 99 Room Air 06/10/16 16:00 98.1 98 20 126/62 96 Room Air 06/10/16 12:00 97.5 75 18 141/68 97 Room Air Intake and Output 06/10/16 06/11/16 19:00 07:00 Intake Total 720 ml 120 ml Output Total 350 ml 475 ml Balance 370 ml -355 ml Intake Oral 720 ml 120 ml Output Urine Total 350 ml 475 ml # Bowel Movements 1 Height (Feet): 5 Height (Inches): 6.00 Weight (Pounds): 150 Objective General Appearance: WD/WN, alert Neck: supple Cardiovascular: regular rhythm Respiratory/Chest: chest wall non-tender, lungs clear, normal breath sounds, no respiratory distress, no accessory muscle use Abdomen: normal bowel sounds, non tender, soft, no organomegaly, no mass Edema: no edema noted Arm (L), no edema noted Arm (R), no edema noted Leg (L), no edema noted Leg (R), no edema noted Pedal (L), no edema noted Pedal (R), no edema noted Generalized Objective bandage over sacrum ISIDORO BYRNE Jun 11, 2016 10:52
[2016-06-11 12:00] VITALS: BP 120/61
[2016-06-11 16:00] VITALS: BP 142/62
[2016-06-11 20:00] VITALS: BP 113/56
[2016-06-11] MEDS: Atorvastatin 20mg tab ORAL SCH (20:01)
[2016-06-12] VITALS: BP 112/52
[2016-06-12 04:00] VITALS: BP 149/65
[2016-06-12] MEDS: Levothyroxine 25mcg tab ORAL SCH (05:44)
[2016-06-12] MEDS: Lactobacillus-GG tablet ORAL SCH ×3 (05:45→21:01)
[2016-06-12] MEDS: NovoLOG Insulin Flexpen SUBQ SCH ×4 (05:45→21:01)
--- NOTE | 2016-06-12 08:03 | General Progress Note ---
Assessment/Plan Problem List: (1) Hyperglycemia ICD Codes: R73.9 - Hyperglycemia SNOMED: 44230114 (2) Altered mental status ICD Codes: R41.82 - Altered mental status SNOMED: 439100358 Qualifiers: Qualified Codes: R41.82 - Altered mental status, unspecified (3) Sepsis ICD Codes: A41.9 - Sepsis SNOMED: 94450341 (4) Altered mental status ICD Codes: R41.82 - Altered mental status, unspecified SNOMED: 169349042 Qualifiers: Qualified Codes: R41.0 - Disorientation, unspecified (5) Stroke ICD Codes: I63.9 - Stroke SNOMED: 941101652 Qualifiers: (6) Hypothyroid ICD Codes: E03.9 - Hypothyroid SNOMED: 63270307 Qualifiers: Qualified Codes: E03.9 - Hypothyroidism, unspecified (7) Decubitus ulcer, stage 4 with infection ICD Codes: L89.94 - Pressure ulcer of unspecified site, stage 4 SNOMED: 4039696, 150141254 Status: stable, progressing Assessment/Plan wound care/dressing- failed flap x 2 wound care- wet to dry now turn q 2. despite repositioning staff states pt turns back on to her behind. per staff constantly instructed to stay on side cont current diabetes rx monitor bs bp rx monitor cbc stable for dc to snf. special education case manager looking for placement son would like to appeal will cont to monitor pt remains medically stable for lower level of care Subjective ROS Limited/Unobtainable: No Constitutional: Reports: malaise, weakness HEENT: Reports: no symptoms Cardiovascular: Reports: no symptoms Respiratory: Reports: no symptoms Gastrointestinal/Abdominal: Reports: no symptoms Genitourinary: Reports: no symptoms Neurologic/Psychiatric: Reports: no symptoms Endocrine: Reports: no symptoms Hematologic/Lymphatic: Reports: no symptoms Allergies: Coded Allergies: HYDROMORPHONE (Verified Allergy, Unknown, 09/21/14) MORPHINE (Unverified Allergy, Unknown, 04/27/16) All Systems: reviewed and negative except above Subjective no events. no change, on wet to dry, denies pain or sob. no new complaints. resting. stable. appeal declined by medicare. stil here in the hospital Objective Last 24 Hour Vital Signs Date Time Temp Pulse Resp B/P Pulse Ox O2 Delivery O2 Flow Rate FiO2 06/12/16 04:00 97.7 74 20 149/65 96 Room Air 06/12/16 00:00 97.7 72 20 112/52 96 Room Air 06/11/16 20:01 90 142/62 06/11/16 20:01 90 142/62 06/11/16 20:00 98.6 105 18 113/56 95 Room Air 06/11/16 16:00 97.7 90 19 142/62 98 Room Air 06/11/16 12:00 97.3 75 20 120/61 96 Room Air 06/11/16 08:30 130/61 06/11/16 08:29 77 130/61 06/11/16 08:28 77 130/61 Intake and Output 06/11/16 06/12/16 19:00 07:00 Intake Total 720 ml Output Total 600 ml 350 ml Balance 120 ml -350 ml Intake Oral 720 ml Output Urine Total 600 ml 350 ml Height (Feet): 5 Height (Inches): 6.00 Weight (Pounds): 150 Objective General Appearance: WD/WN, alert Neck: supple Cardiovascular: regular rhythm Respiratory/Chest: chest wall non-tender, lungs clear, normal breath sounds, no respiratory distress, no accessory muscle use Abdomen: normal bowel sounds, non tender, soft, no organomegaly, no mass Edema: no edema noted Arm (L), no edema noted Arm (R), no edema noted Leg (L), no edema noted Leg (R), no edema noted Pedal (L), no edema noted Pedal (R), no edema noted Generalized Objective bandage over sacrum ISIDORO BYRNE Jun 12, 2016 08:03
[2016-06-12 08:12] VITALS: BP 135/59
[2016-06-12] MEDS: ANAGRELIDE 0.5 MG ORAL SCH ×3 (09:47→17:11)
[2016-06-12] MEDS: Lisinopril 20mg tab ORAL SCH (09:48)
[2016-06-12] MEDS: metFORMIN 500mg tab ORAL SCH ×2 (09:49→17:11)
[2016-06-12] MEDS: Carvedilol 6.25mg Tab ORAL SCH ×2 (09:49→21:00)
[2016-06-12] MEDS: Memantine 10mg tab ORAL SCH (09:49)
[2016-06-12] MEDS: Heparin 5000 units/ml inj SUBQ SCH ×2 (09:54→21:02)
[2016-06-12] MEDS: Mag Plus Protein 133mg Tab ORAL SCH ×3 (09:59→17:11)
[2016-06-12] MEDS: Dakin's 0.5% (Full Strength) 16oz TOPIC SCH (10:20)
--- NOTE | 2016-06-12 11:22 | Infectious Diseases Prog Note ---
"Assessment/Plan Assessment/Plan antibiotics : none A 1. 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 CVA 5. DM 6. HTN 7. proteus | e.coli UTI s/p rx P 1. continue off antibiotics 2. d/c planned Subjective Constitutional: Denies: chills, fever Respiratory: Denies: dry cough, shortness of breath Gastrointestinal/Abdominal: Denies: diarrhea, nausea, vomiting Musculoskeletal: Denies: pain Allergies: Coded Allergies: HYDROMORPHONE (Verified Allergy, Unknown, 09/21/14) MORPHINE (Unverified Allergy, Unknown, 04/27/16) Objective Vital Signs Last 24 Hour Vital Signs Date Time Temp Pulse Resp B/P Pulse Ox O2 Delivery O2 Flow Rate FiO2 06/12/16 09:49 71 123/61 06/12/16 09:48 123/61 06/12/16 09:48 71 123/61 06/12/16 08:12 98.4 78 20 135/59 98 Room Air 06/12/16 04:00 97.7 74 20 149/65 96 Room Air 06/12/16 00:00 97.7 72 20 112/52 96 Room Air 06/11/16 20:01 90 142/62 06/11/16 20:01 90 142/62 06/11/16 20:00 98.6 105 18 113/56 95 Room Air 06/11/16 16:00 97.7 90 19 142/62 98 Room Air 06/11/16 12:00 97.3 75 20 120/61 96 Room Air Height (Feet): 5 Height (Inches): 6.00 Weight (Pounds): 150 Respiratory/Chest: lungs clear Cardiovascular: normal rate, regular rhythm, no gallop/murmur Abdomen: soft, non tender Extremities: no edema ALESSIO KRISHNAMURTHY Jun 12, 2016 11:22"
[2016-06-12 11:45] VITALS: BP 115/53
[2016-06-12 16:00] VITALS: BP 118/52
[2016-06-12 20:55] VITALS: BP 132/73
[2016-06-12] MEDS: Atorvastatin 20mg tab ORAL SCH (21:00)
[2016-06-13] VITALS: BP 108/54
[2016-06-13 03:34] VITALS: BP 141/69
[2016-06-13] MEDS: Levothyroxine 25mcg tab ORAL SCH (05:55)
[2016-06-13] MEDS: NovoLOG Insulin Flexpen SUBQ SCH ×4 (05:56→21:26)
[2016-06-13] MEDS: Lactobacillus-GG tablet ORAL SCH ×3 (05:56→21:23)
--- NOTE | 2016-06-13 07:30 | General Progress Note ---
Assessment/Plan Problem List: (1) Hyperglycemia ICD Codes: R73.9 - Hyperglycemia SNOMED: 12351991 (2) Altered mental status ICD Codes: R41.82 - Altered mental status SNOMED: 369852787 Qualifiers: Qualified Codes: R41.82 - Altered mental status, unspecified (3) Sepsis ICD Codes: A41.9 - Sepsis SNOMED: 18680091 (4) Altered mental status ICD Codes: R41.82 - Altered mental status, unspecified SNOMED: 339536201 Qualifiers: Qualified Codes: R41.0 - Disorientation, unspecified (5) Stroke ICD Codes: I63.9 - Stroke SNOMED: 169071154 Qualifiers: (6) Hypothyroid ICD Codes: E03.9 - Hypothyroid SNOMED: 43183280 Qualifiers: Qualified Codes: E03.9 - Hypothyroidism, unspecified (7) Decubitus ulcer, stage 4 with infection ICD Codes: L89.94 - Pressure ulcer of unspecified site, stage 4 SNOMED: 1819903, 213793493 Assessment/Plan wound care/dressing- failed flap x 2 wound care- wet to dry now turn q 2. despite repositioning staff states pt turns back on to her behind. per staff constantly instructed to stay on side cont current diabetes rx monitor bs bp rx monitor cbc stable for dc to snf. field case manager looking for placement son would like to appeal will cont to monitor pt remains medically stable for lower level of care Subjective ROS Limited/Unobtainable: No Constitutional: Reports: weakness HEENT: Reports: no symptoms Cardiovascular: Reports: no symptoms Respiratory: Reports: no symptoms Gastrointestinal/Abdominal: Reports: no symptoms Genitourinary: Reports: no symptoms Neurologic/Psychiatric: Reports: pre-existing deficit Endocrine: Reports: no symptoms Hematologic/Lymphatic: Reports: anemia Allergies: Coded Allergies: HYDROMORPHONE (Verified Allergy, Unknown, 09/21/14) MORPHINE (Unverified Allergy, Unknown, 04/27/16) All Systems: reviewed and negative except above Subjective no events. no change, on wet to dry, denies pain or sob. no new complaints. resting. stable. appeal declined by medicare. still here in the hospital. son apparently looking at other facilities Objective Last 24 Hour Vital Signs Date Time Temp Pulse Resp B/P Pulse Ox O2 Delivery O2 Flow Rate FiO2 06/13/16 03:34 97.7 75 18 141/69 96 Room Air 06/13/16 00:00 97.9 79 18 108/54 94 Room Air 06/12/16 21:00 96 132/73 06/12/16 21:00 96 132/73 06/12/16 20:55 98.4 96 18 132/73 98 Room Air 06/12/16 16:00 96.0 50 20 118/52 95 Room Air 06/12/16 11:45 97.9 75 20 115/53 97 Room Air 06/12/16 09:49 71 123/61 06/12/16 09:48 123/61 06/12/16 09:48 71 123/61 06/12/16 08:12 98.4 78 20 135/59 98 Room Air Intake and Output 06/12/16 06/13/16 19:00 07:00 Intake Total 600 ml 360 ml Output Total 400 ml 1200 ml Balance 200 ml -840 ml Intake Oral 600 ml 360 ml Output Urine Total 400 ml 1200 ml Height (Feet): 5 Height (Inches): 6.00 Weight (Pounds): 150 Objective General Appearance: WD/WN, alert Neck: supple Cardiovascular: regular rhythm Respiratory/Chest: chest wall non-tender, lungs clear, normal breath sounds, no respiratory distress, no accessory muscle use Abdomen: normal bowel sounds, non tender, soft, no organomegaly, no mass Edema: no edema noted Arm (L), no edema noted Arm (R), no edema noted Leg (L), no edema noted Leg (R), no edema noted Pedal (L), no edema noted Pedal (R), no edema noted Generalized Objective bandage over sacrum ISIDORO BYRNE Jun 13, 2016 07:30
[2016-06-13 08:00] VITALS: BP 139/58
[2016-06-13] MEDS: ANAGRELIDE 0.5 MG ORAL SCH ×3 (09:36→17:35)
[2016-06-13] MEDS: Mag Plus Protein 133mg Tab ORAL SCH ×3 (09:36→17:35)
[2016-06-13] MEDS: Carvedilol 6.25mg Tab ORAL SCH ×2 (09:37→21:24)
[2016-06-13] MEDS: Lisinopril 20mg tab ORAL SCH (09:38)
[2016-06-13] MEDS: Memantine 10mg tab ORAL SCH (09:38)
[2016-06-13] MEDS: metFORMIN 500mg tab ORAL SCH ×2 (09:39→17:34)
[2016-06-13] MEDS: Heparin 5000 units/ml inj SUBQ SCH ×2 (09:44→21:26)
--- NOTE | 2016-06-13 11:06 | Infectious Diseases Prog Note ---
"Assessment/Plan Assessment/Plan antibiotics : none A 1. 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 CVA 5. DM 6. HTN 7. proteus | e.coli UTI s/p rx P 1. continue off antibiotics 2. d/c planned Subjective Constitutional: Denies: chills, fever Respiratory: Denies: dry cough, shortness of breath Gastrointestinal/Abdominal: Denies: diarrhea, nausea, vomiting Musculoskeletal: Denies: pain Allergies: Coded Allergies: HYDROMORPHONE (Verified Allergy, Unknown, 09/21/14) MORPHINE (Unverified Allergy, Unknown, 04/27/16) Objective Vital Signs Last 24 Hour Vital Signs Date Time Temp Pulse Resp B/P Pulse Ox O2 Delivery O2 Flow Rate FiO2 06/13/16 09:38 131/60 06/13/16 09:38 76 131/60 06/13/16 09:37 76 131/60 06/13/16 08:00 97.5 80 18 139/58 97 Room Air 06/13/16 03:34 97.7 75 18 141/69 96 Room Air 06/13/16 00:00 97.9 79 18 108/54 94 Room Air 06/12/16 21:00 96 132/73 06/12/16 21:00 96 132/73 06/12/16 20:55 98.4 96 18 132/73 98 Room Air 06/12/16 16:00 96.0 50 20 118/52 95 Room Air 06/12/16 11:45 97.9 75 20 115/53 97 Room Air Height (Feet): 5 Height (Inches): 6.00 Weight (Pounds): 150 Respiratory/Chest: lungs clear Cardiovascular: normal rate, regular rhythm, no gallop/murmur Abdomen: soft, non tender Extremities: no edema ALESSIO KRISHNAMURTHY Jun 13, 2016 11:06"
[2016-06-13 12:00] VITALS: BP 129/58
[2016-06-13] MEDS: Dakin's 0.5% (Full Strength) 16oz TOPIC SCH (14:24)
[2016-06-13 16:00] VITALS: BP 134/59
[2016-06-13 20:00] VITALS: BP 97/58
[2016-06-13] MEDS: Atorvastatin 20mg tab ORAL SCH (21:24)
[2016-06-14] VITALS: BP 133/55
[2016-06-14 04:00] VITALS: BP 127/67
[2016-06-14] MEDS: Lactobacillus-GG tablet ORAL SCH ×3 (05:26→22:06)
[2016-06-14] MEDS: Levothyroxine 25mcg tab ORAL SCH (05:46)
[2016-06-14] MEDS: NovoLOG Insulin Flexpen SUBQ SCH ×4 (06:13→22:05)
[2016-06-14 08:00] VITALS: BP 128/57
[2016-06-14] MEDS: ANAGRELIDE 0.5 MG ORAL SCH ×3 (08:43→18:16)
[2016-06-14] MEDS: Carvedilol 6.25mg Tab ORAL SCH ×2 (08:43→21:00)
[2016-06-14] MEDS: Lisinopril 20mg tab ORAL SCH (08:44)
[2016-06-14] MEDS: metFORMIN 500mg tab ORAL SCH ×2 (08:44→18:17)
[2016-06-14] MEDS: Mag Plus Protein 133mg Tab ORAL SCH ×3 (08:44→18:17)
[2016-06-14] MEDS: Memantine 10mg tab ORAL SCH (08:53)
[2016-06-14] MEDS: Heparin 5000 units/ml inj SUBQ SCH ×2 (08:54→22:06)
[2016-06-14 12:15] VITALS: BP 104/51
[2016-06-14] MEDS: Dakin's 0.5% (Full Strength) 16oz TOPIC SCH (13:41)
--- NOTE | 2016-06-14 14:23 | Infectious Diseases Prog Note ---
Assessment/Plan Assessment/Plan A; Complicated UTI s/p Rx Leukocytosis DM HPN MRSA & VRE colonization P: observe off antibiotic Waiting for placement Subjective ROS Limited/Unobtainable: Yes Allergies: Coded Allergies: HYDROMORPHONE (Verified Allergy, Unknown, 09/21/14) MORPHINE (Unverified Allergy, Unknown, 04/27/16) Objective Vital Signs Last 24 Hour Vital Signs Date Time Temp Pulse Resp B/P Pulse Ox O2 Delivery O2 Flow Rate FiO2 06/14/16 12:15 97.7 79 18 104/51 96 Room Air 06/14/16 08:53 82 128/57 06/14/16 08:44 128/57 06/14/16 08:43 82 128/57 06/14/16 08:00 98.1 82 18 128/57 97 Room Air 06/14/16 04:00 98.4 72 20 127/67 100 Room Air 06/14/16 00:00 97.7 77 18 133/55 98 06/13/16 21:24 101 118/63 06/13/16 21:23 101 118/63 06/13/16 20:00 99.1 101 20 97/58 98 Room Air 06/13/16 16:00 98.2 87 22 134/59 97 Room Air Height (Feet): 5 Height (Inches): 6.00 Weight (Pounds): 150 General Appearance: no acute distress HEENT: normocephalic Respiratory/Chest: lungs clear Cardiovascular: normal rate Abdomen: soft, non tender Genitourinary: other - Patel catheter Neurologic/Psychiatric: other - sleeping Current Medications Medications (Trade) Dose Ordered Sig/Rupert Route PRN Reason Start Time Stop Time Status Last Admin Dose Admin Acetaminophen (Tylenol) 500 mg Q6H PRN ORAL Mild Pain/Temp > 100.5 05/30/16 20:15 06/29/16 20:14 06/11/16 00:50 Amino Acids/ Magnesium (Mg-Plus) 133 mg THREE TIMES A DAY ORAL 05/22/16 09:00 06/21/16 08:59 06/14/16 13:46 Amlodipine Besylate (Norvasc) 5 mg Q12HR ORAL 04/27/16 21:00 06/26/16 20:59 06/14/16 08:53 Anagrelide HCl (Agrylin) 0.5 mg TID ORAL 06/08/16 22:00 07/08/16 21:59 06/14/16 13:41 Atorvastatin Calcium (Lipitor) 20 mg BEDTIME ORAL 04/27/16 21:00 06/26/16 20:59 06/13/16 21:24 Carvedilol (Coreg) 6.25 mg EVERY 12 HOURS ORAL 05/17/16 09:00 06/16/16 08:59 06/14/16 08:43 Ferrous Sulfate (Feosol) 325 mg THREE TIMES A DAY ORAL 04/28/16 09:00 06/26/16 08:59 06/14/16 13:41 Heparin Sodium (Porcine) (Heparin 5000 units/ml) 5,000 units EVERY 12 HOURS SUBQ 04/27/16 21:00 06/26/16 20:59 06/14/16 08:54 Hydralazine HCl (Apresoline) 25 mg Q6H PRN ORAL prn sbp >160 05/20/16 09:00 06/19/16 08:59 05/28/16 09:38 Insulin Aspart (NovoLOG) BEFORE MEALS AND HS SUBQ 04/27/16 21:00 06/25/16 20:59 06/14/16 11:52 Lactobacillus Acidophilus (Culturelle) 1 tab Q8HR ORAL 04/27/16 22:00 06/26/16 21:59 06/14/16 13:42 Levothyroxine Sodium (Synthroid) 25 mcg DAILY@0630 ORAL 05/01/16 06:30 06/26/16 06:29 06/14/16 05:46 Levothyroxine Sodium (Synthroid) 150 mcg DAILY@0630 ORAL 05/01/16 06:30 06/26/16 06:29 06/14/16 05:46 Lisinopril (Prinivil) 40 mg DAILY ORAL 05/02/16 09:00 06/26/16 08:59 06/14/16 08:44 Memantine (Namenda) 10 mg DAILY ORAL 04/28/16 09:00 06/26/16 08:59 06/14/16 08:53 Metformin HCl (Glucophage) 1,000 mg BID ORAL 04/28/16 09:00 06/26/16 08:59 06/14/16 08:44 Sodium Hypochlorite (Dakin's Full Strength) 1 applic DAILY TOPIC 05/29/16 16:00 06/28/16 15:59 06/14/16 13:41 EFRAIN GARCIA Jun 14, 2016 14:23
[2016-06-14 16:00] VITALS: BP 121/49
[2016-06-14 20:00] VITALS: BP 109/56
--- NOTE | 2016-06-14 21:38 | Progress Note ---
DATE: 06/13/2016 CARDIOLOGY PROGRESS NOTE SUBJECTIVE: The patient continued to receive wound care. She has frequent repositioning. Discharge planning remains a problem. OBJECTIVE: VITAL SIGNS: Afebrile, blood pressure 140/69, pulse 75, and respirations 18. LUNGS: Clear. CARDIAC: Regular. ABDOMEN: Soft. EXTREMITIES: With no edema. IMPRESSION: Stable cardiovascular parameters. PLAN: Continue current therapy at the [facility] facility or home with an appropriate caregiver. Periodic monitoring of platelet counts and adjustments of anti-platelet therapy. Darius Duran M.D. DR: SARAI JOB#: [id number] CC:
--- NOTE | 2016-06-14 21:48 | Progress Note ---
DATE: 06/14/2016 CARDIOLOGY/INTERNAL MEDICINE PROGRESS NOTE SUBJECTIVE: Clinical status unchanged. OBJECTIVE: VITAL SIGNS: Remained stable. Oxygen saturation 96% on room air. Exam, without new findings. The patient remains stable, but still requires total care. PLAN: Repeat laboratory studies will be obtained. Medication regimen will be fine tuned. Pending safe disposition to be determined. Darius Duran M.D. DR: SARAI JOB#: [id number] CC:
[2016-06-14] MEDS: Atorvastatin 20mg tab ORAL SCH (22:04)
[2016-06-15] VITALS: BP 130/54
[2016-06-15 04:00] VITALS: BP 149/63
[2016-06-15] MEDS: Lactobacillus-GG tablet ORAL SCH ×3 (05:16→21:06)
[2016-06-15] MEDS: Levothyroxine 25mcg tab ORAL SCH (05:41)
[2016-06-15] MEDS: NovoLOG Insulin Flexpen SUBQ SCH ×4 (06:09→21:08)
[2016-06-15 07:09] LABS: BASOPHILS % (AUTO) 1.8 % (0.0-2.0); EOSINOPHILS % (AUTO) 1.3 % (0.0-3.0); LYMPHOCYTES % (AUTO) 33.8 % (20.0-45.0); MEAN CORPUSCULAR HEMOGLOBIN 24.5 PG (27.0-31.0); MEAN CORPUSCULAR HGB CONC 31.1 G/DL (32.0-36.0); MEAN CORPUSCULAR VOLUME 79 FL (80-99); MEAN PLATELET VOLUME 10.5 FL (6.5-10.1); MONOCYTES % (AUTO) 7.6 % (1.0-10.0); NEUTROPHILS % (AUTO) 55.5 % (45.0-75.0); PLATELET COUNT 356 K/UL (150-450); RED BLOOD COUNT 4.58 M/UL (4.20-5.40); RED CELL DISTRIBUTION WIDTH 16.2 % (11.6-14.8); WHITE BLOOD COUNT 12.5 K/UL (4.8-10.8)
[2016-06-15 07:23] LABS: ALANINE AMINOTRANSFERASE 7 U/L (3-33); ALBUMIN/GLOBULIN RATIO 0.8 (1.0-2.7); ANION GAP 16 (5-15); ASPARTATE AMINO TRANSFERASE 12 U/L (5-40); CALCIUM 9.7 mg/dL (8.6-10.2); CARBON DIOXIDE 25 mEQ/L (20-30); CHLORIDE 96 mEQ/L (98-107); CREATININE 0.7 mg/dL (0.5-0.9); HEMOLYSIS 3; MAGNESIUM 1.7 mg/dL (1.7-2.5); POTASSIUM 4.5 mEQ/L (3.4-4.9); SODIUM 137 mEQ/L (135-145); TOTAL PROTEIN 6.9 g/dL (6.6-8.7)
[2016-06-15 08:14] VITALS: BP 128/59
[2016-06-15] MEDS: Carvedilol 6.25mg Tab ORAL SCH ×2 (08:19→21:05)
[2016-06-15] MEDS: Memantine 10mg tab ORAL SCH (08:19)
[2016-06-15] MEDS: Lisinopril 20mg tab ORAL SCH (08:19)
[2016-06-15] MEDS: Mag Plus Protein 133mg Tab ORAL SCH ×3 (08:20→18:20)
[2016-06-15] MEDS: metFORMIN 500mg tab ORAL SCH ×2 (08:20→18:20)
[2016-06-15] MEDS: ANAGRELIDE 0.5 MG ORAL SCH ×3 (08:20→18:20)
[2016-06-15] MEDS: Dakin's 0.5% (Full Strength) 16oz TOPIC SCH (08:21)
[2016-06-15] MEDS: Heparin 5000 units/ml inj SUBQ SCH ×2 (08:22→21:07)
--- NOTE | 2016-06-15 11:51 | Infectious Diseases Prog Note ---
Assessment/Plan Assessment/Plan A; Complicated UTI s/p Rx Leukocytosis DM HPN MRSA & VRE colonization Pressure ulcer P: observe off antibiotic Waiting for placement Subjective ROS Limited/Unobtainable: Yes Constitutional: Reports: no symptoms Allergies: Coded Allergies: HYDROMORPHONE (Verified Allergy, Unknown, 09/21/14) MORPHINE (Unverified Allergy, Unknown, 04/27/16) Objective Vital Signs Last 24 Hour Vital Signs Date Time Temp Pulse Resp B/P Pulse Ox O2 Delivery O2 Flow Rate FiO2 06/15/16 08:19 77 128/59 06/15/16 08:19 128/59 06/15/16 08:19 77 128/59 06/15/16 08:14 98.4 77 20 128/59 95 Room Air 06/15/16 04:00 98.7 75 20 149/63 97 Room Air 06/15/16 00:00 97.7 77 20 130/54 98 Room Air 06/14/16 21:00 102 109/56 06/14/16 21:00 102 109/56 06/14/16 20:00 96.0 102 22 109/56 95 Room Air 06/14/16 16:00 98.6 87 20 121/49 96 Room Air 06/14/16 12:15 97.7 79 18 104/51 96 Room Air Height (Feet): 5 Height (Inches): 6.00 Weight (Pounds): 150 General Appearance: no acute distress HEENT: mucous membranes moist Respiratory/Chest: lungs clear Cardiovascular: normal rate Abdomen: soft, non tender Extremities: no edema Skin: ulcers Neurologic/Psychiatric: alert, responsive Laboratory Tests Test 06/15/16 05:40 White Blood Count 12.5 K/UL (4.8-10.8) H Red Blood Count 4.58 M/UL (4.20-5.40) Hemoglobin 11.2 G/DL (12.0-16.0) L Hematocrit 36.0 % (37.0-47.0) L Mean Corpuscular Volume 79 FL (80-99) L Mean Corpuscular Hemoglobin 24.5 PG (27.0-31.0) L Mean Corpuscular Hemoglobin Concent 31.1 G/DL (32.0-36.0) L Red Cell Distribution Width 16.2 % (11.6-14.8) H Platelet Count 356 K/UL (150-450) Mean Platelet Volume 10.5 FL (6.5-10.1) H Neutrophils (%) (Auto) 55.5 % (45.0-75.0) Lymphocytes (%) (Auto) 33.8 % (20.0-45.0) Monocytes (%) (Auto) 7.6 % (1.0-10.0) Eosinophils (%) (Auto) 1.3 % (0.0-3.0) Basophils (%) (Auto) 1.8 % (0.0-2.0) Sodium Level 137 mEQ/L (135-145) Potassium Level 4.5 mEQ/L (3.4-4.9) Chloride Level 96 mEQ/L (98-107) L Carbon Dioxide Level 25 mEQ/L (20-30) Anion Gap 16 (5-15) H Blood Urea Nitrogen 28 mg/dL (7-23) H Creatinine 0.7 mg/dL (0.5-0.9) Estimat Glomerular Filtration Rate mL/min (>60) Glucose Level 102 mg/dL (74-106) Calcium Level 9.7 mg/dL (8.6-10.2) Magnesium Level 1.7 mg/dL (1.7-2.5) Total Bilirubin 0.3 mg/dL (0.0-1.2) Aspartate Amino Transf (AST/SGOT) 12 U/L (5-40) Alanine Aminotransferase (ALT/SGPT) 7 U/L (3-33) Alkaline Phosphatase 69 U/L (35-104) Total Protein 6.9 g/dL (6.6-8.7) Albumin 3.1 g/dL (3.5-5.2) L Globulin 3.8 g/dL Albumin/Globulin Ratio 0.8 (1.0-2.7) L Thyroid Stimulating Hormone (TSH) 1.760 uIU/mL (0.300-4.500) Current Medications Medications (Trade) Dose Ordered Sig/Rupert Route PRN Reason Start Time Stop Time Status Last Admin Dose Admin Acetaminophen (Tylenol) 500 mg Q6H PRN ORAL Mild Pain/Temp > 100.5 05/30/16 20:15 06/29/16 20:14 06/11/16 00:50 Amino Acids/ Magnesium (Mg-Plus) 133 mg THREE TIMES A DAY ORAL 05/22/16 09:00 06/21/16 08:59 06/15/16 08:20 Amlodipine Besylate (Norvasc) 5 mg Q12HR ORAL 04/27/16 21:00 06/26/16 20:59 06/15/16 08:19 Anagrelide HCl (Agrylin) 0.5 mg TID ORAL 06/08/16 22:00 07/08/16 21:59 06/15/16 08:20 Atorvastatin Calcium (Lipitor) 20 mg BEDTIME ORAL 04/27/16 21:00 06/26/16 20:59 06/14/16 22:04 Carvedilol (Coreg) 6.25 mg EVERY 12 HOURS ORAL 05/17/16 09:00 06/16/16 08:59 06/15/16 08:19 Ferrous Sulfate (Feosol) 325 mg THREE TIMES A DAY ORAL 04/28/16 09:00 06/26/16 08:59 06/15/16 08:20 Heparin Sodium (Porcine) (Heparin 5000 units/ml) 5,000 units EVERY 12 HOURS SUBQ 04/27/16 21:00 06/26/16 20:59 06/15/16 08:22 Hydralazine HCl (Apresoline) 25 mg Q6H PRN ORAL prn sbp >160 05/20/16 09:00 06/19/16 08:59 05/28/16 09:38 Insulin Aspart (NovoLOG) BEFORE MEALS AND HS SUBQ 04/27/16 21:00 06/25/16 20:59 06/14/16 22:05 Lactobacillus Acidophilus (Culturelle) 1 tab Q8HR ORAL 04/27/16 22:00 06/26/16 21:59 06/15/16 05:16 Levothyroxine Sodium (Synthroid) 25 mcg DAILY@0630 ORAL 05/01/16 06:30 06/26/16 06:29 06/15/16 05:41 Levothyroxine Sodium (Synthroid) 150 mcg DAILY@0630 ORAL 05/01/16 06:30 06/26/16 06:29 06/15/16 05:40 Lisinopril (Prinivil) 40 mg DAILY ORAL 05/02/16 09:00 06/26/16 08:59 06/15/16 08:19 Memantine (Namenda) 10 mg DAILY ORAL 04/28/16 09:00 06/26/16 08:59 06/15/16 08:19 Metformin HCl (Glucophage) 1,000 mg BID ORAL 04/28/16 09:00 06/26/16 08:59 06/15/16 08:20 Sodium Hypochlorite (Dakin's Full Strength) 1 applic DAILY TOPIC 05/29/16 16:00 06/28/16 15:59 06/15/16 08:21 EFRAIN GARCIA Jun 15, 2016 11:51
[2016-06-15 12:03] VITALS: BP 125/62
[2016-06-15 16:00] VITALS: BP 110/52
--- NOTE | 2016-06-15 16:32 | Wound Nurse Progress Note ---
Wound RN Progress Note Wound Consult Reassess tis Pt the last two days. Pt is under Dr George care for surgical wound on sacral area. wound bed beefy red with moderate amount of serosanguineous drainage. no odor at this time. wound care is done as ordered by Md. Kept clean and dry. Turned and repositioned Q2hrs. will cont to monitor. wound picture taken on 06/13/16 by the nurse on the floor. ISRAEL SULLIVAN RN Jun 15, 2016 16:32
[2016-06-15 20:00] VITALS: BP 147/72
[2016-06-15] MEDS: Atorvastatin 20mg tab ORAL SCH (21:05)
[2016-06-16] VITALS (7 sets, daily range): BP systolic 132–162; BP diastolic 60–79
--- NOTE | 2016-06-16 02:18 | Progress Note ---
DATE: 06/15/2016 INTERNAL MEDICINE PROGRESS NOTE: SUBJECTIVE: The patient is without any distress. OBJECTIVE: VITAL SIGNS: Blood pressure is 128/59, pulse rate 77, and respiratory rate 20. Exam is without change. LABORATORY DATA: Reviewed. Platelet count is optimal now. Magnesium is 1.7. IMPRESSION AND PLAN: Medically stable for lower level of care. Medications reviewed and reconciled. Additional intravenous magnesium maintenance dose added. Await disposition. Darius Duran M.D. DR: Kwadwo JOB#: [id number] CC: ELAINE
[2016-06-16] MEDS: NovoLOG Insulin Flexpen SUBQ SCH ×4 (06:13→23:07)
[2016-06-16] MEDS: Lactobacillus-GG tablet ORAL SCH ×3 (06:19→22:56)
[2016-06-16] MEDS: Levothyroxine 25mcg tab ORAL SCH (06:19)
[2016-06-16] MEDS: Memantine 10mg tab ORAL SCH (08:04)
[2016-06-16] MEDS: ANAGRELIDE 0.5 MG ORAL SCH ×3 (08:05→18:40)
[2016-06-16] MEDS: Carvedilol 6.25mg Tab ORAL SCH (08:05)
[2016-06-16] MEDS: metFORMIN 500mg tab ORAL SCH ×2 (08:06→18:40)
[2016-06-16] MEDS: Mag Plus Protein 133mg Tab ORAL SCH ×3 (08:07→18:40)
[2016-06-16] MEDS: Lisinopril 20mg tab ORAL SCH (08:08)
[2016-06-16] MEDS: Dakin's 0.5% (Full Strength) 16oz TOPIC SCH (08:10)
[2016-06-16] MEDS: Heparin 5000 units/ml inj SUBQ SCH ×2 (08:10→23:03)
--- NOTE | 2016-06-16 11:02 | Infectious Diseases Prog Note ---
"Assessment/Plan Assessment/Plan antibiotics : none A 1. 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 CVA 5. DM 6. HTN 7. proteus | e.coli UTI s/p rx P 1. continue off antibiotics 2. d/c planned Subjective Constitutional: Denies: chills, fever Respiratory: Denies: dry cough, shortness of breath Gastrointestinal/Abdominal: Denies: diarrhea, nausea, vomiting Musculoskeletal: Reports: pain Allergies: Coded Allergies: HYDROMORPHONE (Verified Allergy, Unknown, 09/21/14) MORPHINE (Unverified Allergy, Unknown, 04/27/16) Objective Vital Signs Last 24 Hour Vital Signs Date Time Temp Pulse Resp B/P Pulse Ox O2 Delivery O2 Flow Rate FiO2 06/16/16 08:08 143/62 06/16/16 08:05 73 143/62 06/16/16 08:05 73 143/62 06/16/16 08:00 96.8 73 19 146/60 96 Room Air 06/16/16 05:00 147/69 06/16/16 04:00 97.0 73 18 162/72 97 Room Air 06/16/16 00:00 97.8 72 18 155/79 97 Room Air 06/15/16 21:06 74 147/72 06/15/16 21:05 74 147/72 06/15/16 20:00 97.3 74 20 147/72 95 Room Air 06/15/16 16:00 97.0 79 17 110/52 96 Room Air 06/15/16 12:03 98.0 73 20 125/62 95 Room Air Height (Feet): 5 Height (Inches): 6.00 Weight (Pounds): 150 Respiratory/Chest: lungs clear Cardiovascular: normal rate, regular rhythm, no gallop/murmur Abdomen: soft, non tender Extremities: no edema ALESSIO KRISHNAMURTHY Jun 16, 2016 11:02"
[2016-06-16] MEDS: Atorvastatin 20mg tab ORAL SCH (22:55)
--- NOTE | 2016-06-16 23:28 | Progress Note ---
DATE: 06/16/2016 CARDIOLOGY AND INTERNAL MEDICINE PROGRESS NOTE SUBJECTIVE: Case discussed with case resource manager today. Disposition options are limited. The patient is off antibiotics. OBJECTIVE: VITAL SIGNS: Stable. LUNGS: No signs of congestive heart failure. SKIN: Wound care is progressing. PLAN: The patient remains medically stable but needs total care. IMPRESSION: 1. Essential thrombocytosis. 2. The wound and flap, status post revision. 3. Type 2 diabetes mellitus. 4. Cerebrovascular disease with dementia. 5. Hypertensive heart disease. 6. Urinary tract infection, status post therapy. 7. 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 8. 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 Darius Duran M.D. DR: Isidoro JOB#: [id number] CC:
[2016-06-17] VITALS: BP 148/85
[2016-06-17 04:00] VITALS: BP 160/78
--- NOTE | 2016-06-17 06:08 | Progress Note ---
DATE: 06/17/2016 CARDIOLOGY PROGRESS NOTE SUBJECTIVE: No new distress. OBJECTIVE: Afebrile. Blood pressure 148/85, and pulse of 81. NECK: Supple. LUNGS: Clear. CARDIAC: Regular. Normal S1 and S2 with a fourth heart sound. ABDOMEN: Soft. EXTREMITIES: No edema. Wound site is dressed. IMPRESSION: 1. Hypertensive heart disease with overall control of blood pressure trend. 2. Type 2 diabetes mellitus with stable blood glucose level. 3. Essential thrombocytosis stable on anagrelide. 4. Hypothyroidism on replacement therapy and euthyroid. 5. Status post flap revision. 6. Cerebrovascular disease with dementia. PLAN: Therapy in place. Awaiting discharge plan. Son will need to either agreed to [facility] or arrange 24 hour care at home. Darius Duran M.D. DR: Elba JOB#: [id number] CC:
[2016-06-17] MEDS: NovoLOG Insulin Flexpen SUBQ SCH ×4 (06:30→21:36)
[2016-06-17] MEDS: Lactobacillus-GG tablet ORAL SCH ×3 (06:38→21:35)
[2016-06-17] MEDS: Levothyroxine 25mcg tab ORAL SCH (06:39)
[2016-06-17 08:12] VITALS: BP 130/56
[2016-06-17] MEDS: Mag Plus Protein 133mg Tab ORAL SCH ×3 (08:27→18:11)
[2016-06-17] MEDS: metFORMIN 500mg tab ORAL SCH ×2 (08:28→18:11)
[2016-06-17] MEDS: Memantine 10mg tab ORAL SCH (08:28)
[2016-06-17] MEDS: Lisinopril 20mg tab ORAL SCH (08:28)
[2016-06-17] MEDS: ANAGRELIDE 0.5 MG ORAL SCH ×3 (08:28→18:11)
[2016-06-17] MEDS: Dakin's 0.5% (Full Strength) 16oz TOPIC SCH (08:29)
[2016-06-17] MEDS: Heparin 5000 units/ml inj SUBQ SCH ×2 (08:32→21:36)
[2016-06-17 12:00] VITALS: BP 147/64
--- NOTE | 2016-06-17 12:16 | Infectious Diseases Prog Note ---
"Assessment/Plan Assessment/Plan antibiotics : none A 1. 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 CVA 5. DM 6. HTN 7. proteus | e.coli UTI s/p rx P 1. continue off antibiotics 2. d/c planned Subjective Constitutional: Denies: chills, fever Respiratory: Denies: dry cough, shortness of breath Gastrointestinal/Abdominal: Denies: diarrhea, nausea, vomiting Musculoskeletal: Denies: pain Allergies: Coded Allergies: HYDROMORPHONE (Verified Allergy, Unknown, 09/21/14) MORPHINE (Unverified Allergy, Unknown, 04/27/16) Objective Vital Signs Last 24 Hour Vital Signs Date Time Temp Pulse Resp B/P Pulse Ox O2 Delivery O2 Flow Rate FiO2 06/17/16 08:28 130/56 06/17/16 08:28 74 130/56 06/17/16 08:12 97.8 74 20 130/56 95 Room Air 06/17/16 04:00 97.6 80 18 160/78 96 Room Air 06/17/16 00:00 97.8 81 18 148/85 97 Room Air 06/16/16 22:55 74 146/80 06/16/16 19:00 97.7 78 19 147/66 Room Air 06/16/16 16:00 97.9 74 18 142/63 96 Room Air Height (Feet): 5 Height (Inches): 6.00 Weight (Pounds): 150 Respiratory/Chest: lungs clear Cardiovascular: normal rate, regular rhythm, no gallop/murmur Abdomen: soft, non tender Extremities: no edema Current Medications Medications (Trade) Dose Ordered Sig/Rupert Route PRN Reason Start Time Stop Time Status Last Admin Dose Admin Acetaminophen (Tylenol) 500 mg Q6H PRN ORAL Mild Pain/Temp > 100.5 05/30/16 20:15 06/29/16 20:14 06/11/16 00:50 Amino Acids/ Magnesium (Mg-Plus) 133 mg THREE TIMES A DAY ORAL 05/22/16 09:00 06/21/16 08:59 06/17/16 08:27 Amlodipine Besylate (Norvasc) 5 mg Q12HR ORAL 04/27/16 21:00 06/26/16 20:59 06/17/16 08:28 Anagrelide HCl (Agrylin) 0.5 mg TID ORAL 06/08/16 22:00 07/08/16 21:59 06/17/16 08:28 Atorvastatin Calcium (Lipitor) 20 mg BEDTIME ORAL 04/27/16 21:00 06/26/16 20:59 06/16/16 22:55 Ferrous Sulfate (Feosol) 325 mg THREE TIMES A DAY ORAL 04/28/16 09:00 06/26/16 08:59 06/17/16 08:28 Heparin Sodium (Porcine) (Heparin 5000 units/ml) 5,000 units EVERY 12 HOURS SUBQ 04/27/16 21:00 06/26/16 20:59 06/17/16 08:32 Hydralazine HCl (Apresoline) 25 mg Q6H PRN ORAL prn sbp >160 05/20/16 09:00 06/19/16 08:59 05/28/16 09:38 Insulin Aspart (NovoLOG) BEFORE MEALS AND HS SUBQ 04/27/16 21:00 06/25/16 20:59 06/17/16 11:40 Lactobacillus Acidophilus (Culturelle) 1 tab Q8HR ORAL 04/27/16 22:00 06/26/16 21:59 06/17/16 06:38 Levothyroxine Sodium (Synthroid) 25 mcg DAILY@0630 ORAL 05/01/16 06:30 06/26/16 06:29 06/17/16 06:39 Levothyroxine Sodium (Synthroid) 150 mcg DAILY@0630 ORAL 05/01/16 06:30 06/26/16 06:29 06/17/16 06:39 Lisinopril (Prinivil) 40 mg DAILY ORAL 05/02/16 09:00 06/26/16 08:59 06/17/16 08:28 Memantine (Namenda) 10 mg DAILY ORAL 04/28/16 09:00 06/26/16 08:59 06/17/16 08:28 Metformin HCl (Glucophage) 1,000 mg BID ORAL 04/28/16 09:00 06/26/16 08:59 06/17/16 08:28 Sodium Hypochlorite (Dakin's Full Strength) 1 applic DAILY TOPIC 05/29/16 16:00 3/8/17 15:59 06/17/16 08:29 ALESSIO KRISHNAMURTHY Jun 17, 2016 12:16"
[2016-06-17 16:00] VITALS: BP 124/60
--- NOTE | 2016-06-17 19:53 | General Progress Note ---
Assessment/Plan Problem List: (1) Hyperglycemia ICD Codes: R73.9 - Hyperglycemia SNOMED: 44060484 (2) Altered mental status ICD Codes: R41.82 - Altered mental status SNOMED: 576137966 Qualifiers: Qualified Codes: R41.82 - Altered mental status, unspecified (3) Sepsis ICD Codes: A41.9 - Sepsis SNOMED: 76374752 (4) Altered mental status ICD Codes: R41.82 - Altered mental status, unspecified SNOMED: 894996038 Qualifiers: Qualified Codes: R41.0 - Disorientation, unspecified (5) Stroke ICD Codes: I63.9 - Stroke SNOMED: 245359732 Qualifiers: (6) Hypothyroid ICD Codes: E03.9 - Hypothyroid SNOMED: 21408344 Qualifiers: Qualified Codes: E03.9 - Hypothyroidism, unspecified (7) Decubitus ulcer, stage 4 with infection ICD Codes: L89.94 - Pressure ulcer of unspecified site, stage 4 SNOMED: 3604484, 210511500 Status: stable, progressing Assessment/Plan wound care/dressing- failed flap x 2 wound care- wet to dry now turn q 2. cont current diabetes rx monitor bs bp rx monitor cbc/cmp will cont to monitor pt remains medically stable for lower level of care Subjective ROS Limited/Unobtainable: No Constitutional: Reports: weakness HEENT: Reports: no symptoms Cardiovascular: Reports: no symptoms Respiratory: Reports: no symptoms Gastrointestinal/Abdominal: Reports: no symptoms Genitourinary: Reports: no symptoms Neurologic/Psychiatric: Reports: pre-existing deficit Endocrine: Reports: no symptoms Hematologic/Lymphatic: Reports: anemia Allergies: Coded Allergies: HYDROMORPHONE (Verified Allergy, Unknown, 09/21/14) MORPHINE (Unverified Allergy, Unknown, 04/27/16) All Systems: reviewed and negative except above Subjective no events. no change, on wet to dry, denies pain or sob. no new complaints. resting. stable. son still looking for snf Objective Last 24 Hour Vital Signs Date Time Temp Pulse Resp B/P Pulse Ox O2 Delivery O2 Flow Rate FiO2 06/17/16 16:00 96.8 98 22 124/60 96 Room Air 06/17/16 12:00 96.1 73 18 147/64 98 Room Air 06/17/16 08:28 130/56 06/17/16 08:28 74 130/56 06/17/16 08:12 97.8 74 20 130/56 95 Room Air 06/17/16 04:00 97.6 80 18 160/78 96 Room Air 06/17/16 00:00 97.8 81 18 148/85 97 Room Air 06/16/16 22:55 74 146/80 Intake and Output 06/16/16 06/17/16 19:00 07:00 Intake Total 360 ml 460 ml Output Total 400 ml 550 ml Balance -40 ml -90 ml Intake Oral 360 ml 460 ml Output Urine Total 400 ml 550 ml # Bowel Movements 1 2 Height (Feet): 5 Height (Inches): 6.00 Weight (Pounds): 150 Objective General Appearance: WD/WN, alert Neck: supple Cardiovascular: regular rhythm Respiratory/Chest: chest wall non-tender, lungs clear, normal breath sounds, no respiratory distress, no accessory muscle use Abdomen: normal bowel sounds, non tender, soft, no organomegaly, no mass Edema: no edema noted Arm (L), no edema noted Arm (R), no edema noted Leg (L), no edema noted Leg (R), no edema noted Pedal (L), no edema noted Pedal (R), no edema noted Generalized Objective bandage over sacrum ISIDORO BYRNE Jun 17, 2016 19:53
[2016-06-17 20:00] VITALS: BP 126/64
[2016-06-17] MEDS: Atorvastatin 20mg tab ORAL SCH (21:35)
[2016-06-18] VITALS: BP 141/71
[2016-06-18 04:00] VITALS: BP 138/76
[2016-06-18] MEDS: Lactobacillus-GG tablet ORAL SCH ×3 (06:14→21:24)
[2016-06-18] MEDS: Levothyroxine 25mcg tab ORAL SCH (06:14)
[2016-06-18] MEDS: NovoLOG Insulin Flexpen SUBQ SCH ×4 (06:16→20:43)
--- NOTE | 2016-06-18 07:30 | General Progress Note ---
Assessment/Plan Problem List: (1) Hyperglycemia ICD Codes: R73.9 - Hyperglycemia SNOMED: 91558029 (2) Altered mental status ICD Codes: R41.82 - Altered mental status SNOMED: 043277015 Qualifiers: Qualified Codes: R41.82 - Altered mental status, unspecified (3) Sepsis ICD Codes: A41.9 - Sepsis SNOMED: 03621843 (4) Altered mental status ICD Codes: R41.82 - Altered mental status, unspecified SNOMED: 480775991 Qualifiers: Qualified Codes: R41.0 - Disorientation, unspecified (5) Stroke ICD Codes: I63.9 - Stroke SNOMED: 089224387 Qualifiers: (6) Hypothyroid ICD Codes: E03.9 - Hypothyroid SNOMED: 14214777 Qualifiers: Qualified Codes: E03.9 - Hypothyroidism, unspecified (7) Decubitus ulcer, stage 4 with infection ICD Codes: L89.94 - Pressure ulcer of unspecified site, stage 4 SNOMED: 6362295, 597521901 Status: stable Assessment/Plan wound care/dressing- failed flap x 2 wound care- wet to dry now turn q 2. cont current diabetes rx monitor bs bp rx monitor cbc/cmp will cont to monitor pt remains medically stable for lower level of care Subjective ROS Limited/Unobtainable: No Constitutional: Reports: malaise, weakness HEENT: Reports: no symptoms Cardiovascular: Reports: no symptoms Respiratory: Reports: no symptoms Gastrointestinal/Abdominal: Reports: no symptoms Genitourinary: Reports: no symptoms Neurologic/Psychiatric: Reports: pre-existing deficit Endocrine: Reports: no symptoms Hematologic/Lymphatic: Reports: anemia Allergies: Coded Allergies: HYDROMORPHONE (Verified Allergy, Unknown, 09/21/14) MORPHINE (Unverified Allergy, Unknown, 04/27/16) All Systems: reviewed and negative except above Subjective no events. no change, on wet to dry, denies pain or sob. no new complaints. resting. stable. son still looking for snf Objective Last 24 Hour Vital Signs Date Time Temp Pulse Resp B/P Pulse Ox O2 Delivery O2 Flow Rate FiO2 06/18/16 04:00 97.8 80 18 138/76 98 Room Air 06/18/16 00:00 97.6 82 18 141/71 99 Room Air 06/17/16 21:35 89 126/64 06/17/16 20:00 97.9 89 20 126/64 98 Room Air 06/17/16 16:00 96.8 98 22 124/60 96 Room Air 06/17/16 12:00 96.1 73 18 147/64 98 Room Air 06/17/16 08:28 130/56 06/17/16 08:28 74 130/56 06/17/16 08:12 97.8 74 20 130/56 95 Room Air Intake and Output 06/17/16 06/18/16 18:59 06:59 Intake Total 240 ml 460 ml Output Total 500 ml 900 ml Balance -260 ml -440 ml Intake Oral 240 ml 460 ml Output Urine Total 500 ml 900 ml Height (Feet): 5 Height (Inches): 6.00 Weight (Pounds): 150 Objective General Appearance: WD/WN, alert Neck: supple Cardiovascular: regular rhythm Respiratory/Chest: chest wall non-tender, lungs clear, normal breath sounds, no respiratory distress, no accessory muscle use Abdomen: normal bowel sounds, non tender, soft, no organomegaly, no mass Edema: no edema noted Arm (L), no edema noted Arm (R), no edema noted Leg (L), no edema noted Leg (R), no edema noted Pedal (L), no edema noted Pedal (R), no edema noted Generalized Objective bandage over sacrum ISIDORO BYRNE Jun 18, 2016 07:30
[2016-06-18 08:00] VITALS: BP 141/71
[2016-06-18] MEDS: Mag Plus Protein 133mg Tab ORAL SCH ×3 (11:52→18:13)
[2016-06-18] MEDS: Lisinopril 20mg tab ORAL SCH (11:53)
[2016-06-18] MEDS: Heparin 5000 units/ml inj SUBQ SCH ×2 (11:57→21:28)
[2016-06-18] MEDS: ANAGRELIDE 0.5 MG ORAL SCH ×4 (11:58→21:24)
[2016-06-18 12:00] VITALS: BP 165/75
[2016-06-18] MEDS: Memantine 10mg tab ORAL SCH (12:03)
[2016-06-18] MEDS: metFORMIN 500mg tab ORAL SCH ×2 (12:03→18:13)
[2016-06-18] MEDS: Dakin's 0.5% (Full Strength) 16oz TOPIC SCH (14:43)
--- NOTE | 2016-06-18 15:00 | Infectious Diseases Prog Note ---
Assessment/Plan Assessment/Plan A; Complicated UTI s/p Rx Leukocytosis DM HPN MRSA & VRE colonization Pressure ulcer P: observe off antibiotic Waiting for placement Subjective ROS Limited/Unobtainable: Yes Allergies: Coded Allergies: HYDROMORPHONE (Verified Allergy, Unknown, 09/21/14) MORPHINE (Unverified Allergy, Unknown, 04/27/16) Objective Vital Signs Last 24 Hour Vital Signs Date Time Temp Pulse Resp B/P Pulse Ox O2 Delivery O2 Flow Rate FiO2 06/18/16 12:00 97.8 72 18 165/75 97 Room Air 06/18/16 11:53 165/75 06/18/16 11:53 72 165/75 06/18/16 08:00 98.1 81 18 141/71 94 Room Air 06/18/16 04:00 97.8 80 18 138/76 98 Room Air 06/18/16 00:00 97.6 82 18 141/71 99 Room Air 06/17/16 21:35 89 126/64 06/17/16 20:00 97.9 89 20 126/64 98 Room Air 06/17/16 16:00 96.8 98 22 124/60 96 Room Air Height (Feet): 5 Height (Inches): 6.00 Weight (Pounds): 150 General Appearance: no acute distress HEENT: mucous membranes moist Respiratory/Chest: lungs clear Cardiovascular: normal rate Abdomen: soft, non tender Extremities: no edema Skin: ulcers Neurologic/Psychiatric: other - sleeping Current Medications Medications (Trade) Dose Ordered Sig/Rupert Route PRN Reason Start Time Stop Time Status Last Admin Dose Admin Acetaminophen (Tylenol) 500 mg Q6H PRN ORAL Mild Pain/Temp > 100.5 05/30/16 20:15 06/29/16 20:14 06/11/16 00:50 Amino Acids/ Magnesium (Mg-Plus) 133 mg THREE TIMES A DAY ORAL 05/22/16 09:00 06/21/16 08:59 06/18/16 11:52 Amlodipine Besylate (Norvasc) 5 mg Q12HR ORAL 04/27/16 21:00 06/26/16 20:59 06/18/16 11:53 Anagrelide HCl (Agrylin) 0.5 mg TID ORAL 06/08/16 22:00 07/08/16 21:59 06/18/16 11:58 Atorvastatin Calcium (Lipitor) 20 mg BEDTIME ORAL 04/27/16 21:00 06/26/16 20:59 06/17/16 21:35 Ferrous Sulfate (Feosol) 325 mg THREE TIMES A DAY ORAL 04/28/16 09:00 06/26/16 08:59 06/18/16 11:52 Heparin Sodium (Porcine) (Heparin 5000 units/ml) 5,000 units EVERY 12 HOURS SUBQ 04/27/16 21:00 06/26/16 20:59 06/18/16 11:57 Hydralazine HCl (Apresoline) 25 mg Q6H PRN ORAL prn sbp >160 05/20/16 09:00 06/19/16 08:59 05/28/16 09:38 Insulin Aspart (NovoLOG) BEFORE MEALS AND HS SUBQ 04/27/16 21:00 06/25/16 20:59 06/18/16 12:46 Lactobacillus Acidophilus (Culturelle) 1 tab Q8HR ORAL 04/27/16 22:00 06/26/16 21:59 06/18/16 06:14 Levothyroxine Sodium (Synthroid) 25 mcg DAILY@0630 ORAL 05/01/16 06:30 06/26/16 06:29 06/18/16 06:14 Levothyroxine Sodium (Synthroid) 150 mcg DAILY@0630 ORAL 05/01/16 06:30 06/26/16 06:29 06/18/16 06:14 Lisinopril (Prinivil) 40 mg DAILY ORAL 05/02/16 09:00 06/26/16 08:59 06/18/16 11:53 Memantine (Namenda) 10 mg DAILY ORAL 04/28/16 09:00 06/26/16 08:59 06/18/16 12:03 Metformin HCl (Glucophage) 1,000 mg BID ORAL 04/28/16 09:00 06/26/16 08:59 06/18/16 12:03 Sodium Hypochlorite (Dakin's Full Strength) 1 applic DAILY TOPIC 05/29/16 16:00 06/28/16 15:59 06/18/16 14:43 EFRAIN GARCIA Jun 18, 2016 15:00
[2016-06-18 16:00] VITALS: BP 154/71
[2016-06-18 19:00] VITALS: BP 144/61
[2016-06-18] MEDS: Atorvastatin 20mg tab ORAL SCH (21:23)
[2016-06-19] VITALS: BP 124/68
[2016-06-19 04:00] VITALS: BP 123/66
[2016-06-19] MEDS: Lactobacillus-GG tablet ORAL SCH ×3 (06:20→20:47)
[2016-06-19] MEDS: Levothyroxine 25mcg tab ORAL SCH (06:20)
[2016-06-19] MEDS: NovoLOG Insulin Flexpen SUBQ SCH ×4 (06:30→20:49)
[2016-06-19 07:31] LABS: BASOPHILS % (AUTO) 1.6 % (0.0-2.0); EOSINOPHILS % (AUTO) 1.6 % (0.0-3.0); LYMPHOCYTES % (AUTO) 28.9 % (20.0-45.0); MEAN CORPUSCULAR HEMOGLOBIN 24.8 PG (27.0-31.0); MEAN CORPUSCULAR HGB CONC 31.7 G/DL (32.0-36.0); MEAN CORPUSCULAR VOLUME 78 FL (80-99); MEAN PLATELET VOLUME 11.2 FL (6.5-10.1); MONOCYTES % (AUTO) 8.8 % (1.0-10.0); NEUTROPHILS % (AUTO) 59.1 % (45.0-75.0); PLATELET COUNT 295 K/UL (150-450); RED BLOOD COUNT 4.76 M/UL (4.20-5.40); RED CELL DISTRIBUTION WIDTH 16.4 % (11.6-14.8); WHITE BLOOD COUNT 11.6 K/UL (4.8-10.8)
[2016-06-19 08:05] VITALS: BP 156/74
[2016-06-19] MEDS: Mag Plus Protein 133mg Tab ORAL SCH ×3 (08:42→20:46)
[2016-06-19] MEDS: ANAGRELIDE 0.5 MG ORAL SCH ×3 (08:42→17:28)
[2016-06-19] MEDS: Lisinopril 20mg tab ORAL SCH (08:43)
[2016-06-19] MEDS: metFORMIN 500mg tab ORAL SCH ×2 (08:43→17:28)
[2016-06-19] MEDS: Memantine 10mg tab ORAL SCH (08:43)
[2016-06-19] MEDS: Heparin 5000 units/ml inj SUBQ SCH ×2 (08:46→20:49)
[2016-06-19] MEDS: Dakin's 0.5% (Full Strength) 16oz TOPIC SCH (08:46)
--- NOTE | 2016-06-19 11:12 | Infectious Diseases Prog Note ---
Assessment/Plan Assessment/Plan A; Complicated UTI s/p Rx Leukocytosis DM HPN MRSA & VRE colonization Pressure ulcer P: observe off antibiotic Waiting for placement Subjective ROS Limited/Unobtainable: Yes Allergies: Coded Allergies: HYDROMORPHONE (Verified Allergy, Unknown, 09/21/14) MORPHINE (Unverified Allergy, Unknown, 04/27/16) Objective Vital Signs Last 24 Hour Vital Signs Date Time Temp Pulse Resp B/P Pulse Ox O2 Delivery O2 Flow Rate FiO2 06/19/16 08:43 156/74 06/19/16 08:43 91 156/74 06/19/16 08:05 97.0 91 18 156/74 96 Room Air 06/19/16 04:00 97.5 80 18 123/66 95 Room Air 06/19/16 00:00 97.5 98 18 124/68 94 Room Air 06/18/16 21:23 79 144/61 06/18/16 19:00 97.3 79 20 144/61 97 Room Air 06/18/16 16:00 97.7 76 20 154/71 98 Room Air 06/18/16 12:00 97.8 72 18 165/75 97 Room Air 06/18/16 11:53 165/75 06/18/16 11:53 72 165/75 Height (Feet): 5 Height (Inches): 6.00 Weight (Pounds): 150 General Appearance: no acute distress HEENT: mucous membranes moist Respiratory/Chest: lungs clear Cardiovascular: normal rate Abdomen: soft, non tender Extremities: no edema Skin: ulcers Neurologic/Psychiatric: alert, responsive Laboratory Tests Test 06/19/16 05:50 White Blood Count 11.6 K/UL (4.8-10.8) H Red Blood Count 4.76 M/UL (4.20-5.40) Hemoglobin 11.8 G/DL (12.0-16.0) L Hematocrit 37.1 % (37.0-47.0) Mean Corpuscular Volume 78 FL (80-99) L Mean Corpuscular Hemoglobin 24.8 PG (27.0-31.0) L Mean Corpuscular Hemoglobin Concent 31.7 G/DL (32.0-36.0) L Red Cell Distribution Width 16.4 % (11.6-14.8) H Platelet Count 295 K/UL (150-450) Mean Platelet Volume 11.2 FL (6.5-10.1) H Neutrophils (%) (Auto) 59.1 % (45.0-75.0) Lymphocytes (%) (Auto) 28.9 % (20.0-45.0) Monocytes (%) (Auto) 8.8 % (1.0-10.0) Eosinophils (%) (Auto) 1.6 % (0.0-3.0) Basophils (%) (Auto) 1.6 % (0.0-2.0) Current Medications Medications (Trade) Dose Ordered Sig/Rupert Route PRN Reason Start Time Stop Time Status Last Admin Dose Admin Acetaminophen (Tylenol) 500 mg Q6H PRN ORAL Mild Pain/Temp > 100.5 05/30/16 20:15 06/29/16 20:14 06/11/16 00:50 Amino Acids/ Magnesium (Mg-Plus) 133 mg THREE TIMES A DAY ORAL 05/22/16 09:00 06/21/16 08:59 06/19/16 08:42 Amlodipine Besylate (Norvasc) 5 mg Q12HR ORAL 04/27/16 21:00 06/26/16 20:59 06/19/16 08:43 Anagrelide HCl (Agrylin) 0.5 mg TID ORAL 06/08/16 22:00 07/08/16 21:59 06/19/16 08:42 Atorvastatin Calcium (Lipitor) 20 mg BEDTIME ORAL 04/27/16 21:00 06/26/16 20:59 06/18/16 21:23 Ferrous Sulfate (Feosol) 325 mg THREE TIMES A DAY ORAL 04/28/16 09:00 06/26/16 08:59 06/19/16 08:43 Heparin Sodium (Porcine) (Heparin 5000 units/ml) 5,000 units EVERY 12 HOURS SUBQ 04/27/16 21:00 06/26/16 20:59 06/19/16 08:46 Insulin Aspart (NovoLOG) BEFORE MEALS AND HS SUBQ 04/27/16 21:00 06/25/16 20:59 06/18/16 16:51 Lactobacillus Acidophilus (Culturelle) 1 tab Q8HR ORAL 04/27/16 22:00 06/26/16 21:59 06/19/16 06:20 Levothyroxine Sodium (Synthroid) 25 mcg DAILY@0630 ORAL 05/01/16 06:30 06/26/16 06:29 06/19/16 06:20 Levothyroxine Sodium (Synthroid) 150 mcg DAILY@0630 ORAL 05/01/16 06:30 06/26/16 06:29 06/19/16 06:20 Lisinopril (Prinivil) 40 mg DAILY ORAL 05/02/16 09:00 06/26/16 08:59 06/19/16 08:43 Memantine (Namenda) 10 mg DAILY ORAL 04/28/16 09:00 06/26/16 08:59 06/19/16 08:43 Metformin HCl (Glucophage) 1,000 mg BID ORAL 04/28/16 09:00 06/26/16 08:59 06/19/16 08:43 Sodium Hypochlorite (Dakin's Full Strength) 1 applic DAILY TOPIC 05/29/16 16:00 06/28/16 15:59 06/19/16 08:46 EFRAIN GARCIA Jun 19, 2016 11:12
[2016-06-19 12:00] VITALS: BP 163/75
--- NOTE | 2016-06-19 15:33 | Wound Care Consultation ---
Wound Assessment Wound Assessment : Wound Present on Admission: Yes New Wound: No Status Change of Wound: No Wound Location Body Site Modif: mid Wound Location Body Site: sacral Wound Type: pressure ulcer Gloria Test: Does not Gloria Pressure Ulcer Stage: IV/unstageable Incisional Wounds: Dehisced Incision Wound Thickness: Full Thickness Wound Length: 9.0 Wound Width: 9.0 Wound Depth: 3.0 Percent of Wound [place]/Red: 95 Percent of Wound Bed Yellow/Wh: 5 Wound Drainage Description: Serosanguineous Wound Drainage Amount: Moderate Wound Drainage Odor: None/Absent Tissue Surrounding Wound: Macerated Wound Undermining at 12:00: 4.0 Wound Undermining at 3:00: 3.3 Wound General Appearance: Reddened, Draining, Incision Dehiscence Wound Comment #1 Sacral nonhealing pressure ulcer. pressure ulcer with dehiscence to incision site. wound bed beefy red with 5% of yellow slough on the edges of the incision site. no odor at this time. wound care is done as ordered by Dr George. Turned and repositioned. Kept clean and dry at all times. will cont to monitor. ISRAEL SULLIVAN RN Jun 19, 2016 15:33
[2016-06-19] MEDS: Acetaminophen 500mg (ES) tab ORAL PRN (16:01)
[2016-06-19 17:00] VITALS: BP 125/67
--- NOTE | 2016-06-19 17:41 | General Progress Note ---
Assessment/Plan Problem List: (1) Hyperglycemia ICD Codes: R73.9 - Hyperglycemia SNOMED: 35996766 (2) Altered mental status ICD Codes: R41.82 - Altered mental status SNOMED: 262205749 Qualifiers: Qualified Codes: R41.82 - Altered mental status, unspecified (3) Sepsis ICD Codes: A41.9 - Sepsis SNOMED: 60737514 (4) Altered mental status ICD Codes: R41.82 - Altered mental status, unspecified SNOMED: 941707943 Qualifiers: Qualified Codes: R41.0 - Disorientation, unspecified (5) Stroke ICD Codes: I63.9 - Stroke SNOMED: 336438888 Qualifiers: (6) Hypothyroid ICD Codes: E03.9 - Hypothyroid SNOMED: 71702069 Qualifiers: Qualified Codes: E03.9 - Hypothyroidism, unspecified (7) Decubitus ulcer, stage 4 with infection ICD Codes: L89.94 - Pressure ulcer of unspecified site, stage 4 SNOMED: 4087287, 633904148 Status: stable Assessment/Plan wound care/dressing- failed flap x 2 wound care- wet to dry now turn q 2. cont current diabetes rx monitor bs bp rx monitor cbc/cmp will cont to monitor pt remains medically stable for lower level of care Subjective ROS Limited/Unobtainable: No Constitutional: Reports: weakness HEENT: Reports: no symptoms Cardiovascular: Reports: no symptoms Respiratory: Reports: no symptoms Gastrointestinal/Abdominal: Reports: no symptoms Genitourinary: Reports: no symptoms Neurologic/Psychiatric: Reports: pre-existing deficit Endocrine: Reports: no symptoms Hematologic/Lymphatic: Reports: no symptoms Allergies: Coded Allergies: HYDROMORPHONE (Verified Allergy, Unknown, 09/21/14) MORPHINE (Unverified Allergy, Unknown, 04/27/16) All Systems: reviewed and negative except above Subjective no events. w/o complaints. pt denies chest pain or sob. "im ok" per [place] pts family filling 3rd appeal to medicare. Objective Last 24 Hour Vital Signs Date Time Temp Pulse Resp B/P Pulse Ox O2 Delivery O2 Flow Rate FiO2 06/19/16 14:50 163/75 06/19/16 12:00 97.0 83 18 163/75 96 Room Air 06/19/16 08:43 156/74 06/19/16 08:43 91 156/74 2/27/17 08:05 97.0 91 18 156/74 96 Room Air 06/19/16 04:00 97.5 80 18 123/66 95 Room Air 06/19/16 00:00 97.5 98 18 124/68 94 Room Air 06/18/16 21:23 79 144/61 06/18/16 19:00 97.3 79 20 144/61 97 Room Air Intake and Output 06/18/16 06/19/16 19:00 07:00 Intake Total 600 ml 380 ml Output Total 400 ml 700 ml Balance 200 ml -320 ml Intake Oral 600 ml 380 ml Output Urine Total 400 ml 700 ml Laboratory Tests 06/19/16 05:50: White Blood Count 11.6H, Red Blood Count 4.76, Hemoglobin 11.8L, Hematocrit 37.1 , Mean Corpuscular Volume 78L, Mean Corpuscular Hemoglobin 24.8L, Mean Corpuscular Hemoglobin Concent 31.7L, Red Cell Distribution Width 16.4H, Platelet Count 295, Mean Platelet Volume 11.2H, Neutrophils (%) (Auto) 59.1, Lymphocytes (%) (Auto) 28.9, Monocytes (%) (Auto) 8.8, Eosinophils (%) (Auto) 1.6, Basophils (%) (Auto) 1.6 Height (Feet): 5 Height (Inches): 6.00 Weight (Pounds): 150 Objective General Appearance: WD/WN, alert Neck: supple Cardiovascular: regular rhythm Respiratory/Chest: chest wall non-tender, lungs clear, normal breath sounds, no respiratory distress, no accessory muscle use Abdomen: normal bowel sounds, non tender, soft, no organomegaly, no mass Edema: no edema noted Arm (L), no edema noted Arm (R), no edema noted Leg (L), no edema noted Leg (R), no edema noted Pedal (L), no edema noted Pedal (R), no edema noted Generalized Objective bandage over sacrum ISIDORO BYRNE Jun 19, 2016 17:41
[2016-06-19 20:00] VITALS: BP 118/56
[2016-06-19] MEDS: Atorvastatin 20mg tab ORAL SCH (20:46)
[2016-06-20] VITALS (7 sets, daily range): BP systolic 102–151; BP diastolic 46–80
[2016-06-20] MEDS: Levothyroxine 25mcg tab ORAL SCH (05:56)
[2016-06-20] MEDS: Lactobacillus-GG tablet ORAL SCH ×3 (05:57→20:59)
[2016-06-20] MEDS: NovoLOG Insulin Flexpen SUBQ SCH ×4 (06:24→21:01)
[2016-06-20] MEDS: Memantine 10mg tab ORAL SCH (08:37)
[2016-06-20] MEDS: metFORMIN 500mg tab ORAL SCH ×2 (08:37→17:04)
[2016-06-20] MEDS: ANAGRELIDE 0.5 MG ORAL SCH ×3 (08:37→17:04)
[2016-06-20] MEDS: Mag Plus Protein 133mg Tab ORAL SCH ×3 (08:37→17:03)
[2016-06-20] MEDS: Lisinopril 20mg tab ORAL SCH (08:38)
[2016-06-20] MEDS: Dakin's 0.5% (Full Strength) 16oz TOPIC SCH (08:38)
[2016-06-20] MEDS: Heparin 5000 units/ml inj SUBQ SCH ×2 (08:41→21:01)
--- NOTE | 2016-06-20 12:29 | Infectious Diseases Prog Note ---
"Assessment/Plan Assessment/Plan antibiotics : none A 1. 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 CVA 5. DM 6. HTN 7. proteus | e.coli UTI s/p rx P 1. continue off antibiotics 2. d/c planned Subjective ROS Limited/Unobtainable: Yes Allergies: Coded Allergies: HYDROMORPHONE (Verified Allergy, Unknown, 09/21/14) MORPHINE (Unverified Allergy, Unknown, 04/27/16) Objective Vital Signs Last 24 Hour Vital Signs Date Time Temp Pulse Resp B/P Pulse Ox O2 Delivery O2 Flow Rate FiO2 06/20/16 08:41 97.0 86 19 135/61 97 Room Air 06/20/16 08:38 106/61 06/20/16 08:38 77 106/61 06/20/16 04:33 77 106/61 06/20/16 04:00 97.9 79 20 104/48 96 Room Air 06/20/16 00:00 97.7 82 18 102/46 97 Room Air 06/19/16 20:50 115 118/56 06/19/16 20:00 98.1 115 20 118/56 97 Room Air 06/19/16 17:00 99.7 56 18 125/67 96 Room Air 06/19/16 14:50 163/75 Height (Feet): 5 Height (Inches): 6.00 Weight (Pounds): 150 Respiratory/Chest: lungs clear Cardiovascular: normal rate, regular rhythm, no gallop/murmur Abdomen: soft, non tender Extremities: no edema ALESSIO KRISHNAMURTHY Jun 20, 2016 12:29"
--- NOTE | 2016-06-20 17:03 | General Progress Note ---
Assessment/Plan Problem List: (1) Hyperglycemia ICD Codes: R73.9 - Hyperglycemia SNOMED: 33337716 (2) Altered mental status ICD Codes: R41.82 - Altered mental status SNOMED: 934277919 Qualifiers: Qualified Codes: R41.82 - Altered mental status, unspecified (3) Sepsis ICD Codes: A41.9 - Sepsis SNOMED: 56518547 (4) Altered mental status ICD Codes: R41.82 - Altered mental status, unspecified SNOMED: 497219548 Qualifiers: Qualified Codes: R41.0 - Disorientation, unspecified (5) Stroke ICD Codes: I63.9 - Stroke SNOMED: 485787772 Qualifiers: (6) Hypothyroid ICD Codes: E03.9 - Hypothyroid SNOMED: 77468169 Qualifiers: Qualified Codes: E03.9 - Hypothyroidism, unspecified (7) Decubitus ulcer, stage 4 with infection ICD Codes: L89.94 - Pressure ulcer of unspecified site, stage 4 SNOMED: 3035680, 506779218 Status: stable Assessment/Plan wound care/dressing- failed flap x 2 wound care- wet to dry now turn q 2. cont current diabetes rx monitor bs bp rx monitor cbc/cmp will cont to monitor pt remains medically stable for lower level of care Subjective ROS Limited/Unobtainable: No Constitutional: Reports: weakness HEENT: Reports: no symptoms Cardiovascular: Reports: no symptoms Respiratory: Reports: no symptoms Gastrointestinal/Abdominal: Reports: no symptoms Genitourinary: Reports: no symptoms Neurologic/Psychiatric: Reports: pre-existing deficit Endocrine: Reports: no symptoms Hematologic/Lymphatic: Reports: no symptoms Allergies: Coded Allergies: HYDROMORPHONE (Verified Allergy, Unknown, 09/21/14) MORPHINE (Unverified Allergy, Unknown, 04/27/16) All Systems: reviewed and negative except above Subjective no events. w/o complaints. denies cp/sob. eats well. Objective Last 24 Hour Vital Signs Date Time Temp Pulse Resp B/P Pulse Ox O2 Delivery O2 Flow Rate FiO2 06/20/16 12:46 97.0 94 19 119/66 97 Room Air 06/20/16 08:41 97.0 86 19 135/61 97 Room Air 06/20/16 08:38 106/61 06/20/16 08:38 77 106/61 06/20/16 04:33 77 106/61 06/20/16 04:00 97.9 79 20 104/48 96 Room Air 06/20/16 00:00 97.7 82 18 102/46 97 Room Air 06/19/16 20:50 115 118/56 06/19/16 20:00 98.1 115 20 118/56 97 Room Air Intake and Output 06/19/16 06/20/16 19:00 07:00 Intake Total 720 ml 360 ml Output Total 800 ml 775 ml Balance -80 ml -415 ml Intake Oral 720 ml 360 ml Output Urine Total 800 ml 775 ml # Bowel Movements 1 1 Height (Feet): 5 Height (Inches): 6.00 Weight (Pounds): 150 Objective General Appearance: WD/WN, alert Neck: supple Cardiovascular: regular rhythm Respiratory/Chest: chest wall non-tender, lungs clear, normal breath sounds, no respiratory distress, no accessory muscle use Abdomen: normal bowel sounds, non tender, soft, no organomegaly, no mass Edema: no edema noted Arm (L), no edema noted Arm (R), no edema noted Leg (L), no edema noted Leg (R), no edema noted Pedal (L), no edema noted Pedal (R), no edema noted Generalized Objective bandage over sacrum ISIDORO BYRNE Jun 20, 2016 17:03
[2016-06-20] MEDS: Atorvastatin 20mg tab ORAL SCH (20:59)
[2016-06-21] VITALS: BP 117/57
--- NOTE | 2016-06-21 02:08 | Progress Note ---
DATE: 06/20/2016 CARDIOLOGY PROGRESS NOTE SUBJECTIVE: The patient remains on wound care protocol. Vital signs are stable. Glucose controlled. Blood pressures range adequate. Clinical exam without signs of congestive heart failure or acute infection. We will recheck laboratory studies. Continue current medications pending placement of the lower level of care when available. Darius Duran M.D. DR: COREY JOB#: [id number] CC:
--- NOTE | 2016-06-21 02:08 | Progress Note ---
DATE: 06/19/2016 CARDIOLOGY PROGRESS NOTE Late entry for 06/19/2016. SUBJECTIVE: The patient remains on wound care. Flap revision has failed. Infection is under control. The patient is off antibiotics. Vitals stable. Glucose controlled. Blood pressure managed. No signs of acute congestive heart failure. Cardiovascular parameters stable. Platelet count controlled with current dose of anagrelide. Stable for lower level of care. Darius Duran M.D. DR: COREY JOB#: [id number] CC:
[2016-06-21 04:00] VITALS: BP 135/61
--- NOTE | 2016-06-21 05:38 | Progress Note ---
DATE: 06/18/2016 CARDIOLOGY PROGRESS NOTE This is a late entry for 06/18/2016. SUBJECTIVE: No nausea. No vomiting. No chest pain or shortness of breath. OBJECTIVE: VITAL SIGNS: Remained stable, blood pressure of 138/76, pulse 80, and respirations 18. LUNGS: Clear. CARDIAC: Regular. ABDOMEN: Soft. No edema. IMPRESSION: 1. Essential thrombocytosis. 2. Hypertensive heart disease. 3. Type 2 diabetes mellitus. 4. Sacral wound, status post flap revision. 5. Cerebrovascular disease with multi-infarct dementia. 6. Hypothyroidism, on replacement therapy. PLAN: 1. Continue current medications. 2. regimen as needed. 3. Placement . Darius Duran M.D. DR: COREY JOB#: [id number] CC:
[2016-06-21] MEDS: Levothyroxine 25mcg tab ORAL SCH (05:57)
[2016-06-21] MEDS: Lactobacillus-GG tablet ORAL SCH ×3 (05:57→21:14)
[2016-06-21] MEDS: NovoLOG Insulin Flexpen SUBQ SCH ×4 (06:00→21:15)
--- NOTE | 2016-06-21 07:56 | General Progress Note ---
Assessment/Plan Problem List: (1) Hyperglycemia ICD Codes: R73.9 - Hyperglycemia SNOMED: 55738416 (2) Altered mental status ICD Codes: R41.82 - Altered mental status SNOMED: 857790532 Qualifiers: Qualified Codes: R41.82 - Altered mental status, unspecified (3) Sepsis ICD Codes: A41.9 - Sepsis SNOMED: 97830200 (4) Altered mental status ICD Codes: R41.82 - Altered mental status, unspecified SNOMED: 441775741 Qualifiers: Qualified Codes: R41.0 - Disorientation, unspecified (5) Stroke ICD Codes: I63.9 - Stroke SNOMED: 029692414 Qualifiers: (6) Hypothyroid ICD Codes: E03.9 - Hypothyroid SNOMED: 23273954 Qualifiers: Qualified Codes: E03.9 - Hypothyroidism, unspecified (7) Decubitus ulcer, stage 4 with infection ICD Codes: L89.94 - Pressure ulcer of unspecified site, stage 4 SNOMED: 1681124, 336516791 Status: stable Assessment/Plan wound care/dressing- failed flap x 2 wound care- wet to dry now turn q 2. cont current diabetes rx monitor bs bp rx monitor cbc/cmp will cont to monitor pt remains medically stable for lower level of care Subjective ROS Limited/Unobtainable: No Constitutional: Reports: weakness HEENT: Reports: no symptoms Cardiovascular: Reports: no symptoms Respiratory: Reports: no symptoms Gastrointestinal/Abdominal: Reports: no symptoms Genitourinary: Reports: no symptoms Neurologic/Psychiatric: Reports: pre-existing deficit Endocrine: Reports: no symptoms Hematologic/Lymphatic: Reports: no symptoms Allergies: Coded Allergies: HYDROMORPHONE (Verified Allergy, Unknown, 09/21/14) MORPHINE (Unverified Allergy, Unknown, 04/27/16) All Systems: reviewed and negative except above Subjective no events. w/o complaints. denies cp/sob. eats well. bp stable. Objective Last 24 Hour Vital Signs Date Time Temp Pulse Resp B/P Pulse Ox O2 Delivery O2 Flow Rate FiO2 06/21/16 04:00 98.4 94 20 135/61 94 Room Air 06/21/16 00:00 97.7 93 21 117/57 95 Room Air 06/20/16 20:59 97 147/75 06/20/16 20:00 97.2 97 20 147/75 97 Room Air 06/20/16 16:00 98.2 109 20 151/80 93 Room Air 06/20/16 12:46 97.0 94 19 119/66 97 Room Air 06/20/16 08:41 97.0 86 19 135/61 97 Room Air 06/20/16 08:38 106/61 06/20/16 08:38 77 106/61 Intake and Output 06/20/16 06/21/16 19:00 07:00 Intake Total 120 ml 240 ml Output Total 300 ml 850 ml Balance -180 ml -610 ml Intake Oral 120 ml 240 ml Output Urine Total 300 ml 850 ml # Bowel Movements 2 Height (Feet): 5 Height (Inches): 6.00 Weight (Pounds): 150 Objective General Appearance: WD/WN, alert Neck: supple Cardiovascular: regular rhythm Respiratory/Chest: chest wall non-tender, lungs clear, normal breath sounds, no respiratory distress, no accessory muscle use Abdomen: normal bowel sounds, non tender, soft, no organomegaly, no mass Edema: no edema noted Arm (L), no edema noted Arm (R), no edema noted Leg (L), no edema noted Leg (R), no edema noted Pedal (L), no edema noted Pedal (R), no edema noted Generalized Objective bandage over sacrum ISIDORO BYRNE Jun 21, 2016 07:56
[2016-06-21 08:00] VITALS: BP 134/65
[2016-06-21] MEDS: metFORMIN 500mg tab ORAL SCH ×2 (08:30→17:43)
[2016-06-21] MEDS: ANAGRELIDE 0.5 MG ORAL SCH ×3 (08:30→17:42)
[2016-06-21] MEDS: Memantine 10mg tab ORAL SCH (08:30)
[2016-06-21] MEDS: Lisinopril 20mg tab ORAL SCH (08:31)
[2016-06-21] MEDS: Heparin 5000 units/ml inj SUBQ SCH ×2 (08:42→21:16)
[2016-06-21] MEDS: Dakin's 0.5% (Full Strength) 16oz TOPIC SCH (08:42)
[2016-06-21 12:00] VITALS: BP 121/64
[2016-06-21] MEDS: Acetaminophen 500mg (ES) tab ORAL PRN (15:44)
[2016-06-21 15:47] VITALS: BP 121/74
[2016-06-21 20:00] VITALS: BP 104/53
[2016-06-21] MEDS: Atorvastatin 20mg tab ORAL SCH (21:13)
[2016-06-22 00:55] VITALS: BP 124/59
[2016-06-22 04:45] VITALS: BP 139/61
[2016-06-22] MEDS: Levothyroxine 25mcg tab ORAL SCH (06:29)
[2016-06-22] MEDS: Lactobacillus-GG tablet ORAL SCH ×3 (06:29→22:23)
[2016-06-22] MEDS: NovoLOG Insulin Flexpen SUBQ SCH ×4 (06:32→22:24)
[2016-06-22 08:00] VITALS: BP 137/65
[2016-06-22] MEDS: Memantine 10mg tab ORAL SCH (08:58)
[2016-06-22] MEDS: Lisinopril 20mg tab ORAL SCH (08:58)
[2016-06-22] MEDS: metFORMIN 500mg tab ORAL SCH ×2 (08:58→17:59)
[2016-06-22] MEDS: ANAGRELIDE 0.5 MG ORAL SCH ×3 (08:58→17:59)
[2016-06-22] MEDS: Dakin's 0.5% (Full Strength) 16oz TOPIC SCH (09:00)
[2016-06-22] MEDS: Heparin 5000 units/ml inj SUBQ SCH ×2 (09:00→22:24)
--- NOTE | 2016-06-22 10:20 | Infectious Diseases Prog Note ---
Assessment/Plan Assessment/Plan A; Complicated UTI s/p Rx Leukocytosis DM HPN MRSA & VRE colonization Pressure ulcer P: observe off antibiotic Waiting for placement Subjective ROS Limited/Unobtainable: Yes Allergies: Coded Allergies: HYDROMORPHONE (Verified Allergy, Unknown, 09/21/14) MORPHINE (Unverified Allergy, Unknown, 04/27/16) Objective Vital Signs Last 24 Hour Vital Signs Date Time Temp Pulse Resp B/P Pulse Ox O2 Delivery O2 Flow Rate FiO2 06/22/16 08:58 139/61 06/22/16 08:57 87 139/61 06/22/16 08:00 97.7 87 18 137/65 99 Room Air 06/22/16 04:45 97.9 87 21 139/61 97 Room Air 06/22/16 00:55 97.3 89 21 124/59 97 Room Air 06/21/16 22:54 95 06/21/16 20:19 105 104/53 06/21/16 20:00 97.7 105 20 104/53 96 Room Air 06/21/16 17:01 98.1 06/21/16 16:43 98.1 06/21/16 15:47 101.8 92 19 121/74 95 Room Air 06/21/16 12:00 97.9 101 20 121/64 97 Room Air Height (Feet): 5 Height (Inches): 6.00 Weight (Pounds): 150 General Appearance: no acute distress HEENT: mucous membranes moist Respiratory/Chest: lungs clear Cardiovascular: normal rate Abdomen: soft, non tender Skin: ulcers Neurologic/Psychiatric: alert, responsive Current Medications Medications (Trade) Dose Ordered Sig/Rupert Route PRN Reason Start Time Stop Time Status Last Admin Dose Admin Acetaminophen (Tylenol) 500 mg Q6H PRN ORAL Mild Pain/Temp > 100.5 05/30/16 20:15 06/29/16 20:14 06/21/16 15:44 Amlodipine Besylate (Norvasc) 5 mg Q12HR ORAL 04/27/16 21:00 06/26/16 20:59 06/22/16 08:57 Anagrelide HCl (Agrylin) 0.5 mg TID ORAL 06/08/16 22:00 07/08/16 21:59 06/22/16 08:58 Atorvastatin Calcium (Lipitor) 20 mg BEDTIME ORAL 04/27/16 21:00 06/26/16 20:59 06/21/16 21:13 Clonidine HCl (Catapres) 0.1 mg Q4H PRN ORAL For High Blood Pressure 06/19/16 14:30 07/19/16 14:29 06/19/16 14:50 Ferrous Sulfate (Feosol) 325 mg THREE TIMES A DAY ORAL 04/28/16 09:00 06/26/16 08:59 06/22/16 08:58 Heparin Sodium (Porcine) (Heparin 5000 units/ml) 5,000 units EVERY 12 HOURS SUBQ 04/27/16 21:00 06/26/16 20:59 06/22/16 09:00 Insulin Aspart (NovoLOG) BEFORE MEALS AND HS SUBQ 04/27/16 21:00 06/25/16 20:59 06/22/16 06:32 Lactobacillus Acidophilus (Culturelle) 1 tab Q8HR ORAL 04/27/16 22:00 06/26/16 21:59 06/22/16 06:29 Levothyroxine Sodium (Synthroid) 25 mcg DAILY@0630 ORAL 05/01/16 06:30 06/26/16 06:29 06/22/16 06:29 Levothyroxine Sodium (Synthroid) 150 mcg DAILY@0630 ORAL 05/01/16 06:30 06/26/16 06:29 06/22/16 06:29 Lisinopril (Prinivil) 40 mg DAILY ORAL 05/02/16 09:00 06/26/16 08:59 06/22/16 08:58 Memantine (Namenda) 10 mg DAILY ORAL 04/28/16 09:00 06/26/16 08:59 06/22/16 08:58 Metformin HCl (Glucophage) 1,000 mg BID ORAL 04/28/16 09:00 06/26/16 08:59 06/22/16 08:58 Sodium Hypochlorite (Dakin's Full Strength) 1 applic DAILY TOPIC 05/29/16 16:00 06/28/16 15:59 06/22/16 09:00 EFRAIN GARCIA 2, 2017 10:20
[2016-06-22 11:42] VITALS: BP 133/64
--- NOTE | 2016-06-22 13:54 | General Progress Note ---
Assessment/Plan Problem List: (1) Hyperglycemia ICD Codes: R73.9 - Hyperglycemia SNOMED: 93847210 (2) Altered mental status ICD Codes: R41.82 - Altered mental status SNOMED: 367450476 Qualifiers: Qualified Codes: R41.82 - Altered mental status, unspecified (3) Sepsis ICD Codes: A41.9 - Sepsis SNOMED: 33879042 (4) Altered mental status ICD Codes: R41.82 - Altered mental status, unspecified SNOMED: 249173475 Qualifiers: Qualified Codes: R41.0 - Disorientation, unspecified (5) Stroke ICD Codes: I63.9 - Stroke SNOMED: 228286145 Qualifiers: (6) Hypothyroid ICD Codes: E03.9 - Hypothyroid SNOMED: 15019914 Qualifiers: Qualified Codes: E03.9 - Hypothyroidism, unspecified (7) Decubitus ulcer, stage 4 with infection ICD Codes: L89.94 - Pressure ulcer of unspecified site, stage 4 SNOMED: 2299059, 609405770 Status: stable, progressing Assessment/Plan wound care/dressing- failed flap x 2 wound care- wet to dry now turn q 2. cont current diabetes rx monitor bs bp rx monitor cbc/cmp will cont to monitor pt remains medically stable for lower level of care son wants to take pt home. Subjective ROS Limited/Unobtainable: No Constitutional: Reports: weakness HEENT: Reports: no symptoms Cardiovascular: Reports: no symptoms Respiratory: Reports: no symptoms Gastrointestinal/Abdominal: Reports: no symptoms Genitourinary: Reports: no symptoms Neurologic/Psychiatric: Reports: pre-existing deficit Endocrine: Reports: no symptoms Hematologic/Lymphatic: Reports: no symptoms Allergies: Coded Allergies: HYDROMORPHONE (Verified Allergy, Unknown, 09/21/14) MORPHINE (Unverified Allergy, Unknown, 04/27/16) All Systems: reviewed and negative except above Subjective no events. w/o complaints. denies cp/sob. eats well. bp stable. Objective Last 24 Hour Vital Signs Date Time Temp Pulse Resp B/P Pulse Ox O2 Delivery O2 Flow Rate FiO2 06/22/16 11:42 98.1 69 20 133/64 98 Room Air 06/22/16 08:58 139/61 06/22/16 08:57 87 139/61 06/22/16 08:00 97.7 87 18 137/65 99 Room Air 06/22/16 04:45 97.9 87 21 139/61 97 Room Air 06/22/16 00:55 97.3 89 21 124/59 97 Room Air 06/21/16 22:54 95 06/21/16 20:19 105 104/53 06/21/16 20:00 97.7 105 20 104/53 96 Room Air 06/21/16 17:01 98.1 06/21/16 16:43 98.1 06/21/16 15:47 101.8 92 19 121/74 95 Room Air Intake and Output 06/21/16 06/22/16 19:00 07:00 Intake Total 720 ml 450 ml Output Total 700 ml 450 ml Balance 20 ml 0 ml Intake Oral 720 ml 450 ml Output Urine Total 700 ml 450 ml # Voids 1 # Bowel Movements 1 Height (Feet): 5 Height (Inches): 6.00 Weight (Pounds): 150 Objective General Appearance: WD/WN, alert Neck: supple Cardiovascular: regular rhythm Respiratory/Chest: chest wall non-tender, lungs clear, normal breath sounds, no respiratory distress, no accessory muscle use Abdomen: normal bowel sounds, non tender, soft, no organomegaly, no mass Edema: no edema noted Arm (L), no edema noted Arm (R), no edema noted Leg (L), no edema noted Leg (R), no edema noted Pedal (L), no edema noted Pedal (R), no edema noted Generalized Objective bandage over sacrum wound clean ISIDORO BYRNE Jun 22, 2016 13:54
[2016-06-22 16:00] VITALS: BP 121/57
[2016-06-22 20:00] VITALS: BP 126/72
[2016-06-22] MEDS: Atorvastatin 20mg tab ORAL SCH (22:22)
--- NOTE | 2016-06-22 22:50 | Progress Note ---
DATE: 06/22/2016 CARDIOLOGY PROGRESS NOTE SUBJECTIVE: The patient's condition remains stable. She is tolerating oral intake. Glucose and blood pressure control are adequate. She continues with wound care following failed flaps x2. Platelet count remained stable on current regimen. Discharge planning home is anticipated. Medications reviewed. Vitals noted. Clinical exam without change. Darius Duran M.D. DR: SAGE JOB#: [id number] CC:
[2016-06-23] VITALS (7 sets, daily range): BP systolic 129–161; BP diastolic 58–84
[2016-06-23] MEDS: Levothyroxine 25mcg tab ORAL SCH (06:05)
[2016-06-23] MEDS: Lactobacillus-GG tablet ORAL SCH ×3 (06:05→22:33)
[2016-06-23] MEDS: NovoLOG Insulin Flexpen SUBQ SCH ×4 (06:09→22:34)
--- NOTE | 2016-06-23 08:28 | General Progress Note ---
Assessment/Plan Problem List: (1) Hyperglycemia ICD Codes: R73.9 - Hyperglycemia SNOMED: 94269397 (2) Altered mental status ICD Codes: R41.82 - Altered mental status SNOMED: 592343243 Qualifiers: Qualified Codes: R41.82 - Altered mental status, unspecified (3) Sepsis ICD Codes: A41.9 - Sepsis SNOMED: 39075120 (4) Altered mental status ICD Codes: R41.82 - Altered mental status, unspecified SNOMED: 192035425 Qualifiers: Qualified Codes: R41.0 - Disorientation, unspecified (5) Stroke ICD Codes: I63.9 - Stroke SNOMED: 401811582 Qualifiers: (6) Hypothyroid ICD Codes: E03.9 - Hypothyroid SNOMED: 34972579 Qualifiers: Qualified Codes: E03.9 - Hypothyroidism, unspecified (7) Decubitus ulcer, stage 4 with infection ICD Codes: L89.94 - Pressure ulcer of unspecified site, stage 4 SNOMED: 9707411, 169829750 Status: stable Assessment/Plan wound care/dressing- failed flap x 2 wound care- wet to dry now turn q 2. cont current diabetes rx monitor bs bp rx monitor cbc/cmp will cont to monitor pt remains medically stable for lower level of care son wants to take pt home. Subjective ROS Limited/Unobtainable: No Constitutional: Reports: weakness HEENT: Reports: no symptoms Cardiovascular: Reports: no symptoms Respiratory: Reports: no symptoms Gastrointestinal/Abdominal: Reports: no symptoms Genitourinary: Reports: no symptoms Neurologic/Psychiatric: Reports: pre-existing deficit Endocrine: Reports: no symptoms Hematologic/Lymphatic: Reports: no symptoms Allergies: Coded Allergies: HYDROMORPHONE (Verified Allergy, Unknown, 09/21/14) MORPHINE (Unverified Allergy, Unknown, 04/27/16) All Systems: reviewed and negative except above Subjective no events. w/o complaints. denies cp/sob. eats well. bp stable. Objective Last 24 Hour Vital Signs Date Time Temp Pulse Resp B/P Pulse Ox O2 Delivery O2 Flow Rate FiO2 06/23/16 04:00 97.9 81 20 148/84 97 Room Air 06/23/16 00:00 97.6 97 18 132/64 95 Room Air 06/22/16 22:23 109 126/72 06/22/16 20:00 97.7 109 22 126/72 96 Room Air 06/22/16 16:00 98.1 86 22 121/57 98 Room Air 06/22/16 11:42 98.1 69 20 133/64 98 Room Air 06/22/16 08:58 139/61 06/22/16 08:57 87 139/61 Intake and Output 06/22/16 06/23/16 19:00 07:00 Intake Total 540 ml 240 ml Output Total 400 ml 350 ml Balance 140 ml -110 ml Intake Oral 540 ml 240 ml Output Urine Total 400 ml 350 ml # Bowel Movements 1 Height (Feet): 5 Height (Inches): 6.00 Weight (Pounds): 150 Objective General Appearance: WD/WN, alert Neck: supple Cardiovascular: regular rhythm Respiratory/Chest: chest wall non-tender, lungs clear, normal breath sounds, no respiratory distress, no accessory muscle use Abdomen: normal bowel sounds, non tender, soft, no organomegaly, no mass Edema: no edema noted Arm (L), no edema noted Arm (R), no edema noted Leg (L), no edema noted Leg (R), no edema noted Pedal (L), no edema noted Pedal (R), no edema noted Generalized Objective bandage over sacrum wound clean ISIDORO BYRNE Jun 23, 2016 08:28
[2016-06-23] MEDS: Heparin 5000 units/ml inj SUBQ SCH ×2 (08:32→22:34)
[2016-06-23] MEDS: ANAGRELIDE 0.5 MG ORAL SCH ×3 (08:33→17:18)
[2016-06-23] MEDS: metFORMIN 500mg tab ORAL SCH ×2 (08:34→17:18)
[2016-06-23] MEDS: Memantine 10mg tab ORAL SCH (08:34)
[2016-06-23] MEDS: Lisinopril 20mg tab ORAL SCH (08:36)
--- NOTE | 2016-06-23 09:20 | Progress Note ---
FOLLOWUP NOTE: She had secondary closure of a sacral wound approximately three weeks ago. The medial margin of the flap remained opened. It had dehisced about 8 to 9 days postoperatively, presumably because of mechanical forces. This was most likely due to mechanical forces on the wound during turning and it was originally a small opening, which ultimately became colonized and the entire medial suture line was opened. The wound VAC had been placed, but the wound became malodorous. She is now on Dakin solution and odor has disappeared. It is quite clean and I would recommend continuing Dakin solution packing for three to four weeks and then re-evaluating the patient. If there is sufficient contraction of the wound, she could avoid further surgery, if possible, however when the wound is clean, it would be prudent to do a wound closure of the one remaining area, which has failed to heal. Herbert George M.D. DR: Vijay JOB#: [id number] CC:
--- NOTE | 2016-06-23 11:43 | Infectious Diseases Prog Note ---
"Assessment/Plan Assessment/Plan antibiotics : none A 1. 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 CVA 5. DM 6. HTN 7. proteus | e.coli UTI s/p rx P 1. continue off antibiotics 2. d/c planned Subjective ROS Limited/Unobtainable: Yes Allergies: Coded Allergies: HYDROMORPHONE (Verified Allergy, Unknown, 09/21/14) MORPHINE (Unverified Allergy, Unknown, 04/27/16) Objective Vital Signs Last 24 Hour Vital Signs Date Time Temp Pulse Resp B/P Pulse Ox O2 Delivery O2 Flow Rate FiO2 06/23/16 08:36 161/77 06/23/16 08:36 80 161/77 06/23/16 08:35 97.1 80 18 161/77 96 Room Air 06/23/16 08:00 96.6 79 18 138/58 97 Room Air 06/23/16 04:00 97.9 81 20 148/84 97 Room Air 06/23/16 00:00 97.6 97 18 132/64 95 Room Air 06/22/16 22:23 109 126/72 06/22/16 20:00 97.7 109 22 126/72 96 Room Air 06/22/16 16:00 98.1 86 22 121/57 98 Room Air Height (Feet): 5 Height (Inches): 6.00 Weight (Pounds): 150 Respiratory/Chest: lungs clear Cardiovascular: normal rate, regular rhythm, no gallop/murmur Abdomen: soft, non tender Extremities: no edema ALESSIO KRISHNAMURTHY Jun 23, 2016 11:43"
[2016-06-23] MEDS: Dakin's 0.5% (Full Strength) 16oz TOPIC SCH (14:00)
[2016-06-23] MEDS: Atorvastatin 20mg tab ORAL SCH (22:32)
[2016-06-24 00:57] VITALS: BP 140/66
--- NOTE | 2016-06-24 01:48 | Progress Note ---
DATE: 06/23/2016 CARDIOLOGY PROGRESS NOTE SUBJECTIVE: The patient without new complaints. No shortness of breath or chest pain. Ongoing wound care is noted. Discharge planning in progress. OBJECTIVE: NECK: Supple. LUNGS: Clear. CARDIAC: Regular. Normal S1 and S2. ABDOMEN: Soft. No edema. SKIN: Wound site has dressing in place. No odor. IMPRESSION: Remains stable from cardiovascular standpoint. To continue anti-platelet therapy. Monitor clinical parameters periodically as well as laboratory studies. Discharge planning. Darius Duran M.D. DR: COREY JOB#: [id number] CC:
[2016-06-24 04:00] VITALS: BP 149/72
[2016-06-24] MEDS: Lactobacillus-GG tablet ORAL SCH ×3 (06:09→21:23)
[2016-06-24] MEDS: Levothyroxine 25mcg tab ORAL SCH (06:11)
[2016-06-24] MEDS: NovoLOG Insulin Flexpen SUBQ SCH ×4 (06:18→21:24)
[2016-06-24 08:00] VITALS: BP 134/78
--- NOTE | 2016-06-24 08:34 | General Progress Note ---
Assessment/Plan Problem List: (1) Hyperglycemia ICD Codes: R73.9 - Hyperglycemia SNOMED: 37208197 (2) Altered mental status ICD Codes: R41.82 - Altered mental status SNOMED: 332856740 Qualifiers: Qualified Codes: R41.82 - Altered mental status, unspecified (3) Sepsis ICD Codes: A41.9 - Sepsis SNOMED: 67684027 (4) Altered mental status ICD Codes: R41.82 - Altered mental status, unspecified SNOMED: 423486749 Qualifiers: Qualified Codes: R41.0 - Disorientation, unspecified (5) Stroke ICD Codes: I63.9 - Stroke SNOMED: 310911033 Qualifiers: (6) Hypothyroid ICD Codes: E03.9 - Hypothyroid SNOMED: 33538349 Qualifiers: Qualified Codes: E03.9 - Hypothyroidism, unspecified (7) Decubitus ulcer, stage 4 with infection ICD Codes: L89.94 - Pressure ulcer of unspecified site, stage 4 SNOMED: 0201590, 346927627 Assessment/Plan wound care/dressing- failed flap x 2 wound care- wet to dry now turn q 2. cont current diabetes rx monitor bs bp rx monitor cbc/cmp will cont to monitor pt remains medically stable for lower level of care son wants to take pt home. Subjective ROS Limited/Unobtainable: No Constitutional: Reports: malaise, weakness HEENT: Reports: no symptoms Cardiovascular: Reports: no symptoms Respiratory: Reports: no symptoms Gastrointestinal/Abdominal: Reports: no symptoms Genitourinary: Reports: no symptoms Neurologic/Psychiatric: Reports: pre-existing deficit Endocrine: Reports: no symptoms Hematologic/Lymphatic: Reports: no symptoms Allergies: Coded Allergies: HYDROMORPHONE (Verified Allergy, Unknown, 09/21/14) MORPHINE (Unverified Allergy, Unknown, 04/27/16) Subjective no events. w/o complaints. denies cp/sob. eats well. bp stable. Objective Last 24 Hour Vital Signs Date Time Temp Pulse Resp B/P Pulse Ox O2 Delivery O2 Flow Rate FiO2 06/24/16 04:00 97.7 87 20 149/72 94 Room Air 06/24/16 00:57 98.2 95 19 140/66 96 Room Air 06/23/16 22:32 117 129/72 06/23/16 20:00 97.3 117 22 129/72 90 Room Air 06/23/16 16:00 97.5 105 22 138/77 99 Room Air 06/23/16 12:00 97.5 102 18 136/66 98 Room Air 06/23/16 08:36 161/77 06/23/16 08:36 80 161/77 06/23/16 08:35 97.1 80 18 161/77 96 Room Air Intake and Output 06/23/16 06/24/16 19:00 07:00 Intake Total 320 ml 480 ml Output Total 300 ml 350 ml Balance 20 ml 130 ml Intake Oral 320 ml 480 ml Output Urine Total 300 ml 350 ml # Bowel Movements 1 Height (Feet): 5 Height (Inches): 6.00 Weight (Pounds): 150 Objective General Appearance: WD/WN, alert Neck: supple Cardiovascular: regular rhythm Respiratory/Chest: chest wall non-tender, lungs clear, normal breath sounds, no respiratory distress, no accessory muscle use Abdomen: normal bowel sounds, non tender, soft, no organomegaly, no mass Edema: no edema noted Arm (L), no edema noted Arm (R), no edema noted Leg (L), no edema noted Leg (R), no edema noted Pedal (L), no edema noted Pedal (R), no edema noted Generalized Objective bandage over sacrum wound clean and pink. no discharge ISIDORO BYRNE Jun 24, 2016 08:34
[2016-06-24 09:55] LABS: BASOPHILS % (AUTO) 1.9 % (0.0-2.0); EOSINOPHILS % (AUTO) 1.4 % (0.0-3.0); LYMPHOCYTES % (AUTO) 28.9 % (20.0-45.0); MEAN CORPUSCULAR HEMOGLOBIN 24.6 PG (27.0-31.0); MEAN CORPUSCULAR HGB CONC 31.8 G/DL (32.0-36.0); MEAN CORPUSCULAR VOLUME 77 FL (80-99); MEAN PLATELET VOLUME 10.6 FL (6.5-10.1); MONOCYTES % (AUTO) 9.1 % (1.0-10.0); NEUTROPHILS % (AUTO) 58.7 % (45.0-75.0); PLATELET COUNT 301 K/UL (150-450); RED BLOOD COUNT 4.65 M/UL (4.20-5.40); RED CELL DISTRIBUTION WIDTH 15.8 % (11.6-14.8)
[2016-06-24 10:01] LABS: ALANINE AMINOTRANSFERASE 9 U/L (3-33); ALBUMIN/GLOBULIN RATIO 0.7 (1.0-2.7); ANION GAP 17 (5-15); ASPARTATE AMINO TRANSFERASE 14 U/L (5-40); CALCIUM 9.7 mg/dL (8.6-10.2); CARBON DIOXIDE 23 mEQ/L (20-30); CHLORIDE 96 mEQ/L (98-107); CREATININE 0.7 mg/dL (0.5-0.9); HEMOLYSIS 18; POTASSIUM 4.8 mEQ/L (3.4-4.9); SODIUM 136 mEQ/L (135-145); TOTAL PROTEIN 7.1 g/dL (6.6-8.7)
[2016-06-24] MEDS: Lisinopril 20mg tab ORAL SCH (10:18)
[2016-06-24] MEDS: metFORMIN 500mg tab ORAL SCH ×2 (10:18→18:05)
[2016-06-24] MEDS: Dakin's 0.5% (Full Strength) 16oz TOPIC SCH (10:19)
[2016-06-24] MEDS: Memantine 10mg tab ORAL SCH (10:19)
[2016-06-24] MEDS: ANAGRELIDE 0.5 MG ORAL SCH ×3 (10:19→18:06)
[2016-06-24] MEDS: Heparin 5000 units/ml inj SUBQ SCH ×2 (10:22→21:23)
[2016-06-24] MEDS: levETIRAcetam 500mg/5ml Liquid NG SCH ×2 (10:22→21:22)
--- NOTE | 2016-06-24 11:06 | Infectious Diseases Prog Note ---
"Assessment/Plan Assessment/Plan antibiotics : none A 1. 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 CVA 5. DM 6. HTN 7. proteus | e.coli UTI s/p rx P 1. continue off antibiotics 2. d/c planned Subjective Constitutional: Denies: chills, fever Respiratory: Denies: dry cough, shortness of breath Gastrointestinal/Abdominal: Denies: diarrhea, nausea, vomiting Musculoskeletal: Reports: pain Allergies: Coded Allergies: HYDROMORPHONE (Verified Allergy, Unknown, 09/21/14) MORPHINE (Unverified Allergy, Unknown, 04/27/16) Objective Vital Signs Last 24 Hour Vital Signs Date Time Temp Pulse Resp B/P Pulse Ox O2 Delivery O2 Flow Rate FiO2 06/24/16 10:19 87 149/72 06/24/16 10:18 149/72 06/24/16 04:00 97.7 87 20 149/72 94 Room Air 06/24/16 00:57 98.2 95 19 140/66 96 Room Air 06/23/16 22:32 117 129/72 06/23/16 20:00 97.3 117 22 129/72 90 Room Air 06/23/16 16:00 97.5 105 22 138/77 99 Room Air 06/23/16 12:00 97.5 102 18 136/66 98 Room Air Height (Feet): 5 Height (Inches): 6.00 Weight (Pounds): 150 Respiratory/Chest: lungs clear Cardiovascular: normal rate, regular rhythm, no gallop/murmur Abdomen: soft, non tender Extremities: no edema Laboratory Tests Test 06/24/16 08:40 White Blood Count 12.0 K/UL (4.8-10.8) H Red Blood Count 4.65 M/UL (4.20-5.40) Hemoglobin 11.4 G/DL (12.0-16.0) L Hematocrit 36.0 % (37.0-47.0) L Mean Corpuscular Volume 77 FL (80-99) L Mean Corpuscular Hemoglobin 24.6 PG (27.0-31.0) L Mean Corpuscular Hemoglobin Concent 31.8 G/DL (32.0-36.0) L Red Cell Distribution Width 15.8 % (11.6-14.8) H Platelet Count 301 K/UL (150-450) Mean Platelet Volume 10.6 FL (6.5-10.1) H Neutrophils (%) (Auto) 58.7 % (45.0-75.0) Lymphocytes (%) (Auto) 28.9 % (20.0-45.0) Monocytes (%) (Auto) 9.1 % (1.0-10.0) Eosinophils (%) (Auto) 1.4 % (0.0-3.0) Basophils (%) (Auto) 1.9 % (0.0-2.0) Sodium Level 136 mEQ/L (135-145) Potassium Level 4.8 mEQ/L (3.4-4.9) Chloride Level 96 mEQ/L (98-107) L Carbon Dioxide Level 23 mEQ/L (20-30) Anion Gap 17 (5-15) H Blood Urea Nitrogen 22 mg/dL (7-23) Creatinine 0.7 mg/dL (0.5-0.9) Estimat Glomerular Filtration Rate mL/min (>60) Glucose Level 194 mg/dL (74-106) H Calcium Level 9.7 mg/dL (8.6-10.2) Total Bilirubin 0.4 mg/dL (0.0-1.2) Aspartate Amino Transf (AST/SGOT) 14 U/L (5-40) Alanine Aminotransferase (ALT/SGPT) 9 U/L (3-33) Alkaline Phosphatase 67 U/L (35-104) Total Protein 7.1 g/dL (6.6-8.7) Albumin 3.1 g/dL (3.5-5.2) L Globulin 4.0 g/dL Albumin/Globulin Ratio 0.7 (1.0-2.7) L ALESSIO KRISHNAMURTHY Jun 24, 2016 11:06"
[2016-06-24 12:00] VITALS: BP 154/79
[2016-06-24 16:00] VITALS: BP 133/69
[2016-06-24 20:00] VITALS: BP 130/71
[2016-06-24] MEDS: Atorvastatin 20mg tab ORAL SCH (21:22)
[2016-06-25] VITALS: BP 108/59
[2016-06-25 04:00] VITALS: BP 118/52
[2016-06-25] MEDS: Levothyroxine 25mcg tab ORAL SCH (05:45)
[2016-06-25] MEDS: Lactobacillus-GG tablet ORAL SCH ×3 (05:45→21:05)
[2016-06-25] MEDS: NovoLOG Insulin Flexpen SUBQ SCH ×4 (05:50→21:12)
[2016-06-25 08:15] VITALS: BP 118/69
[2016-06-25] MEDS: Lisinopril 20mg tab ORAL SCH (08:59)
[2016-06-25] MEDS: Memantine 10mg tab ORAL SCH (08:59)
[2016-06-25] MEDS: ANAGRELIDE 0.5 MG ORAL SCH ×3 (08:59→17:59)
[2016-06-25] MEDS: metFORMIN 500mg tab ORAL SCH ×2 (08:59→17:59)
[2016-06-25] MEDS: Dakin's 0.5% (Full Strength) 16oz TOPIC SCH (08:59)
[2016-06-25] MEDS: Heparin 5000 units/ml inj SUBQ SCH ×2 (09:01→21:12)
[2016-06-25] MEDS: levETIRAcetam 500mg/5ml Liquid NG SCH ×2 (09:06→21:05)
[2016-06-25 12:47] VITALS: BP 112/59
--- NOTE | 2016-06-25 13:33 | General Progress Note ---
Assessment/Plan Problem List: (1) Hyperglycemia ICD Codes: R73.9 - Hyperglycemia SNOMED: 97876726 (2) Altered mental status ICD Codes: R41.82 - Altered mental status SNOMED: 344032101 Qualifiers: Qualified Codes: R41.82 - Altered mental status, unspecified (3) Sepsis ICD Codes: A41.9 - Sepsis SNOMED: 37794787 (4) Altered mental status ICD Codes: R41.82 - Altered mental status, unspecified SNOMED: 363675200 Qualifiers: Qualified Codes: R41.0 - Disorientation, unspecified (5) Stroke ICD Codes: I63.9 - Stroke SNOMED: 750317984 Qualifiers: (6) Hypothyroid ICD Codes: E03.9 - Hypothyroid SNOMED: 47605000 Qualifiers: Qualified Codes: E03.9 - Hypothyroidism, unspecified (7) Decubitus ulcer, stage 4 with infection ICD Codes: L89.94 - Pressure ulcer of unspecified site, stage 4 SNOMED: 2042929, 741554898 Status: stable, progressing Assessment/Plan wound care/dressing- failed flap x 2 wound care- wet to dry now turn q 2. cont current diabetes rx monitor bs bp rx monitor cbc/cmp will cont to monitor pt remains medically stable for lower level of care son wants to take pt home. Subjective ROS Limited/Unobtainable: No Constitutional: Reports: malaise, weakness HEENT: Reports: no symptoms Cardiovascular: Reports: no symptoms Respiratory: Reports: no symptoms Gastrointestinal/Abdominal: Reports: no symptoms Genitourinary: Reports: no symptoms Neurologic/Psychiatric: Reports: emotional problems Endocrine: Reports: no symptoms Hematologic/Lymphatic: Reports: anemia Allergies: Coded Allergies: HYDROMORPHONE (Verified Allergy, Unknown, 09/21/14) MORPHINE (Unverified Allergy, Unknown, 04/27/16) All Systems: reviewed and negative except above Subjective no events. w/o complaints. denies cp/sob. eats well. bp stable. no abd pain or dysuria or diarrhea. no headaches Objective Last 24 Hour Vital Signs Date Time Temp Pulse Resp B/P Pulse Ox O2 Delivery O2 Flow Rate FiO2 06/25/16 12:47 97.9 103 20 112/59 95 Room Air 06/25/16 08:59 118/69 06/25/16 08:59 101 118/69 3/5/17 08:15 97.2 101 20 118/69 96 Room Air 06/25/16 04:00 98.0 81 20 118/52 97 Room Air 06/25/16 00:00 97.9 105 18 108/59 96 Room Air 06/24/16 21:23 100 130/71 06/24/16 20:00 97.8 100 18 130/71 97 Room Air 06/24/16 16:00 97.7 107 18 133/69 97 Room Air Intake and Output 06/24/16 06/25/16 19:00 07:00 Intake Total 520 ml Output Total 350 ml 1100 ml Balance -350 ml -580 ml Intake Oral 520 ml Output Urine Total 350 ml 1100 ml Height (Feet): 5 Height (Inches): 6.00 Weight (Pounds): 150 Objective General Appearance: WD/WN, alert Neck: supple Cardiovascular: regular rhythm Respiratory/Chest: chest wall non-tender, lungs clear, normal breath sounds, no respiratory distress, no accessory muscle use Abdomen: normal bowel sounds, non tender, soft, no organomegaly, no mass Edema: no edema noted Arm (L), no edema noted Arm (R), no edema noted Leg (L), no edema noted Leg (R), no edema noted Pedal (L), no edema noted Pedal (R), no edema noted Generalized Objective bandage over sacrum wound clean and pink. no discharge ISIDORO BYRNE Jun 25, 2016 13:33
[2016-06-25 16:00] VITALS: BP 124/58
[2016-06-25 19:00] VITALS: BP 126/60
[2016-06-25] MEDS: Acetaminophen 500mg (ES) tab ORAL PRN (19:34)
[2016-06-25] MEDS: Atorvastatin 20mg tab ORAL SCH (21:05)
[2016-06-26] VITALS: BP 114/60
[2016-06-26 04:00] VITALS: BP 133/70
[2016-06-26] MEDS: Levothyroxine 25mcg tab ORAL SCH (05:41)
[2016-06-26] MEDS: Lactobacillus-GG tablet ORAL SCH ×3 (05:41→22:01)
[2016-06-26] MEDS: NovoLOG Insulin Flexpen SUBQ SCH ×4 (05:45→22:03)
[2016-06-26 08:00] VITALS: BP 129/53
[2016-06-26] MEDS: Memantine 10mg tab ORAL SCH (09:03)
[2016-06-26] MEDS: metFORMIN 500mg tab ORAL SCH ×2 (09:03→17:22)
[2016-06-26] MEDS: levETIRAcetam 500mg/5ml Liquid NG SCH ×2 (09:03→22:02)
[2016-06-26] MEDS: ANAGRELIDE 0.5 MG ORAL SCH ×3 (09:03→17:22)
[2016-06-26] MEDS: Heparin 5000 units/ml inj SUBQ SCH ×2 (09:06→22:04)
[2016-06-26] MEDS: Lisinopril 20mg tab ORAL SCH (09:06)
[2016-06-26] MEDS: Dakin's 0.5% (Full Strength) 16oz TOPIC SCH (09:07)
--- NOTE | 2016-06-26 09:51 | General Progress Note ---
Assessment/Plan Problem List: (1) Hyperglycemia ICD Codes: R73.9 - Hyperglycemia SNOMED: 24728720 (2) Altered mental status ICD Codes: R41.82 - Altered mental status SNOMED: 672163531 Qualifiers: Qualified Codes: R41.82 - Altered mental status, unspecified (3) Sepsis ICD Codes: A41.9 - Sepsis SNOMED: 87865991 (4) Altered mental status ICD Codes: R41.82 - Altered mental status, unspecified SNOMED: 179573098 Qualifiers: Qualified Codes: R41.0 - Disorientation, unspecified (5) Stroke ICD Codes: I63.9 - Stroke SNOMED: 320384294 Qualifiers: (6) Hypothyroid ICD Codes: E03.9 - Hypothyroid SNOMED: 96516315 Qualifiers: Qualified Codes: E03.9 - Hypothyroidism, unspecified (7) Decubitus ulcer, stage 4 with infection ICD Codes: L89.94 - Pressure ulcer of unspecified site, stage 4 SNOMED: 6650655, 228963495 Status: stable Assessment/Plan wound care/dressing- failed flap x 2 wound care- wet to dry now turn q 2. cont current diabetes rx monitor bs bp rx monitor cbc/cmp will cont to monitor pt remains medically stable for lower level of care son wants to take pt home. Subjective ROS Limited/Unobtainable: No Constitutional: Reports: malaise, weakness HEENT: Reports: no symptoms Cardiovascular: Reports: no symptoms Respiratory: Reports: no symptoms Gastrointestinal/Abdominal: Reports: no symptoms Genitourinary: Reports: no symptoms Neurologic/Psychiatric: Reports: pre-existing deficit Endocrine: Reports: no symptoms Hematologic/Lymphatic: Reports: no symptoms Allergies: Coded Allergies: HYDROMORPHONE (Verified Allergy, Unknown, 09/21/14) MORPHINE (Unverified Allergy, Unknown, 04/27/16) All Systems: reviewed and negative except above Subjective no events. w/o complaints. denies cp/sob. eats well. bp stable. no abd pain or dysuria or diarrhea. no headaches Objective Last 24 Hour Vital Signs Date Time Temp Pulse Resp B/P Pulse Ox O2 Delivery O2 Flow Rate FiO2 06/26/16 09:07 89 129/53 06/26/16 09:06 129/53 06/26/16 08:00 96.4 89 18 129/53 96 Room Air 06/26/16 04:00 97.6 88 18 133/70 95 Room Air 06/26/16 00:00 97.3 88 18 114/60 96 Room Air 06/25/16 21:05 89 126/60 06/25/16 19:00 97.6 89 20 126/60 95 Room Air 06/25/16 16:00 98.1 94 18 124/58 94 Room Air 06/25/16 12:47 97.9 103 20 112/59 95 Room Air Intake and Output 06/25/16 06/26/16 18:59 06:59 Intake Total 360 ml Output Total 850 ml Balance -490 ml Intake Oral 360 ml Output Urine Total 850 ml Height (Feet): 5 Height (Inches): 6.00 Weight (Pounds): 150 Objective General Appearance: WD/WN, alert Neck: supple Cardiovascular: regular rhythm Respiratory/Chest: chest wall non-tender, lungs clear, normal breath sounds, no respiratory distress, no accessory muscle use Abdomen: normal bowel sounds, non tender, soft, no organomegaly, no mass Edema: no edema noted Arm (L), no edema noted Arm (R), no edema noted Leg (L), no edema noted Leg (R), no edema noted Pedal (L), no edema noted Pedal (R), no edema noted Generalized Objective bandage over sacrum wound clean and pink. no discharge ISIDORO BYRNE Jun 26, 2016 09:51
--- NOTE | 2016-06-26 11:16 | Infectious Diseases Prog Note ---
"Assessment/Plan Assessment/Plan antibiotics : none A 1. 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 CVA 5. DM 6. HTN 7. proteus | e.coli UTI s/p rx P 1. continue off antibiotics 2. d/c planned Subjective Constitutional: Denies: chills, fever Respiratory: Denies: dry cough, shortness of breath Gastrointestinal/Abdominal: Denies: diarrhea, nausea, vomiting Musculoskeletal: Denies: pain Allergies: Coded Allergies: HYDROMORPHONE (Verified Allergy, Unknown, 09/21/14) MORPHINE (Unverified Allergy, Unknown, 04/27/16) Objective Vital Signs Last 24 Hour Vital Signs Date Time Temp Pulse Resp B/P Pulse Ox O2 Delivery O2 Flow Rate FiO2 06/26/16 09:07 89 129/53 06/26/16 09:06 129/53 06/26/16 08:00 96.4 89 18 129/53 96 Room Air 06/26/16 04:00 97.6 88 18 133/70 95 Room Air 06/26/16 00:00 97.3 88 18 114/60 96 Room Air 06/25/16 21:05 89 126/60 06/25/16 19:00 97.6 89 20 126/60 95 Room Air 06/25/16 16:00 98.1 94 18 124/58 94 Room Air 06/25/16 12:47 97.9 103 20 112/59 95 Room Air Height (Feet): 5 Height (Inches): 6.00 Weight (Pounds): 150 Respiratory/Chest: lungs clear Cardiovascular: normal rate, regular rhythm, no gallop/murmur Abdomen: soft, non tender Extremities: no edema ALESSIO KRISHNAMURTHY Jun 26, 2016 11:16"
[2016-06-26 12:12] VITALS: BP 103/54
--- NOTE | 2016-06-26 15:20 | Progress Note ---
DATE: 06/24/2016 CARDIOLOGY PROGRESS NOTE SUBJECTIVE: Continued wound care. No respiratory distress. Tolerating diet. No chest pain. No nausea. No vomiting. OBJECTIVE: VITAL SIGNS: Blood pressure 149/72, pulse 87, and respiratory rate 20. LUNGS: Clear. CARDIAC: Regular. ABDOMEN: Soft. EXTREMITIES: With no edema. Wound site with dressing intact. LABORATORY DATA: White count 12, hemoglobin 11, and platelets 301,000. IMPRESSION: 1. Elevated blood pressure trend with tachycardia. 2. Essential thrombocytosis with stable platelet count. PLAN: Consider low-dose beta-mine. Other therapy without change. Darius Duran M.D. DR: YOGESH JOB#: [id number] CC: ELAINE
--- NOTE | 2016-06-26 15:27 | Wound Care Consultation ---
Wound Assessment Wound Assessment : Wound Number: #1 Wound Present on Admission: Yes New Wound: No Status Change of Wound: No Wound Location Body Site Modif: mid Wound Location Body Site: sacral Wound Type: pressure ulcer Gloria Test: Does not Gloria Pressure Ulcer Stage: IV/unstageable Incisional Wounds: Dehisced Incision Wound Thickness: Full Thickness Wound Length: 9.0 Wound Width: 9.0 Wound Depth: 3.0 Percent of Wound [place]/Red: 95 Percent of Wound Bed Yellow/Wh: 5 Wound Drainage Description: Serosanguineous Wound Drainage Amount: Moderate Wound Drainage Odor: Mild Odor Tissue Surrounding Wound: Macerated Wound Undermining at 12:00: 4.0 Wound Undermining at 3:00: 3.3 Wound General Appearance: Reddened, Draining, Incision Dehiscence Wound Comment #1 Sacral non healing pressure ulcer stage IV/Unstageable. upon reassessment noted sacral non healing pressure ulcer s/p dehiscence incisional site with 95% red beefy wound bed,5% yellow/white slough, mild odor noted. current wound care as ordered effective. wound care treatment provided, site was cleansed and dressed as ordered. no further deterioration noted to wound site. repositioned on side to offload affected site.pressure reliving mattress p200 intact flowing well, patient remains clean and dry. SAMMIE BARLOW Jun 26, 2016 15:27
--- NOTE | 2016-06-26 15:28 | Progress Note ---
DATE: 06/25/2016 CARDIOLOGY PROGRESS NOTE SUBJECTIVE: Vital signs stable. Elevated heart rate at times with blood pressure marginal at the same time. Laboratories yesterday noted. Platelet count 301,000 OBJECTIVE: Exam without change IMPRESSION AND PLAN: Remains overall stable for outpatient care. Discharge planning in progress. 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 Darius Duran M.D. DR: YOGESH JOB#: [id number] CC:
[2016-06-26 16:00] VITALS: BP 124/60
[2016-06-26 20:00] VITALS: BP 153/63
[2016-06-26] MEDS: Atorvastatin 20mg tab ORAL SCH (22:00)
[2016-06-27] VITALS: BP 112/56
[2016-06-27 04:00] VITALS: BP 117/56
--- NOTE | 2016-06-27 05:38 | Progress Note ---
DATE: 06/26/2016 CARDIOLOGY PROGRESS NOTE SUBJECTIVE: The patient continues with wound care. Discharge planning. Continues to be a challenge. OBJECTIVE: VITAL SIGNS: Stable and afebrile. LABORATORY AND DIAGNOSTIC DATA: No signs of congestive heart failure. Blood pressure and glucose are control. Platelet count is stable on current dose of anagrelide. PLAN: Continue current regimen. Pending discharge. Darius Duran M.D. DR: Elba JOB#: [id number] CC:
[2016-06-27] MEDS: Levothyroxine 25mcg tab ORAL SCH (05:40)
[2016-06-27] MEDS: Lactobacillus-GG tablet ORAL SCH ×3 (05:40→22:15)
[2016-06-27] MEDS: NovoLOG Insulin Flexpen SUBQ SCH ×4 (05:42→22:17)
[2016-06-27] MEDS: levETIRAcetam 500mg/5ml Liquid NG SCH ×2 (08:07→22:16)
[2016-06-27] MEDS: ANAGRELIDE 0.5 MG ORAL SCH ×3 (08:08→17:45)
[2016-06-27] MEDS: metFORMIN 500mg tab ORAL SCH ×2 (08:08→17:45)
[2016-06-27] MEDS: Memantine 10mg tab ORAL SCH (08:08)
[2016-06-27] MEDS: Lisinopril 20mg tab ORAL SCH (08:09)
[2016-06-27] MEDS: Dakin's 0.5% (Full Strength) 16oz TOPIC SCH (08:09)
[2016-06-27] MEDS: Heparin 5000 units/ml inj SUBQ SCH ×2 (08:11→22:18)
[2016-06-27 08:38] VITALS: BP 122/58
--- NOTE | 2016-06-27 11:03 | Infectious Diseases Prog Note ---
"Assessment/Plan Assessment/Plan antibiotics : none A 1. 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 CVA 5. DM 6. HTN 7. proteus | e.coli UTI s/p rx P 1. continue off antibiotics 2. d/c planned Subjective ROS Limited/Unobtainable: Yes Allergies: Coded Allergies: HYDROMORPHONE (Verified Allergy, Unknown, 09/21/14) MORPHINE (Unverified Allergy, Unknown, 04/27/16) Objective Vital Signs Last 24 Hour Vital Signs Date Time Temp Pulse Resp B/P Pulse Ox O2 Delivery O2 Flow Rate FiO2 06/27/16 08:38 97.0 93 20 122/58 95 Room Air 06/27/16 08:09 122/58 06/27/16 08:08 94 122/58 06/27/16 04:00 97.9 91 18 117/56 96 Room Air 06/27/16 00:00 97.7 85 18 112/56 97 Room Air 06/26/16 22:10 72 06/26/16 22:00 120 153/63 06/26/16 20:00 98.2 120 16 153/63 94 Room Air 06/26/16 16:00 96.9 106 17 124/60 97 Room Air 06/26/16 12:12 98.1 109 19 103/54 96 Room Air Height (Feet): 5 Height (Inches): 6.00 Weight (Pounds): 150 Respiratory/Chest: lungs clear Cardiovascular: normal rate, regular rhythm, no gallop/murmur Abdomen: soft, non tender Extremities: no edema ALESSIO KRISHNAMURTHY Jun 27, 2016 11:03"
[2016-06-27 11:55] VITALS: BP 121/60
--- NOTE | 2016-06-27 12:08 | General Progress Note ---
Assessment/Plan Problem List: (1) Hyperglycemia ICD Codes: R73.9 - Hyperglycemia SNOMED: 11508335 (2) Altered mental status ICD Codes: R41.82 - Altered mental status SNOMED: 527821824 Qualifiers: Qualified Codes: R41.82 - Altered mental status, unspecified (3) Sepsis ICD Codes: A41.9 - Sepsis SNOMED: 75975455 (4) Altered mental status ICD Codes: R41.82 - Altered mental status, unspecified SNOMED: 632913069 Qualifiers: Qualified Codes: R41.0 - Disorientation, unspecified (5) Stroke ICD Codes: I63.9 - Stroke SNOMED: 064285510 Qualifiers: (6) Hypothyroid ICD Codes: E03.9 - Hypothyroid SNOMED: 31854738 Qualifiers: Qualified Codes: E03.9 - Hypothyroidism, unspecified (7) Decubitus ulcer, stage 4 with infection ICD Codes: L89.94 - Pressure ulcer of unspecified site, stage 4 SNOMED: 9728047, 250680972 Status: stable, progressing Assessment/Plan wound care/dressing- failed flap x 2 wound care- wet to dry now turn q 2. cont current diabetes rx monitor bs bp rx monitor cbc/cmp will cont to monitor pt remains medically stable for lower level of care son wants to take pt home. Subjective ROS Limited/Unobtainable: Yes Constitutional: Reports: malaise, weakness HEENT: Reports: no symptoms Cardiovascular: Reports: no symptoms Respiratory: Reports: no symptoms Gastrointestinal/Abdominal: Reports: no symptoms Genitourinary: Reports: no symptoms Neurologic/Psychiatric: Reports: no symptoms Endocrine: Reports: no symptoms Hematologic/Lymphatic: Reports: no symptoms Allergies: Coded Allergies: HYDROMORPHONE (Verified Allergy, Unknown, 09/21/14) MORPHINE (Unverified Allergy, Unknown, 04/27/16) All Systems: reviewed and negative except above Subjective no events. w/o complaints. denies cp/sob. eats well. bp stable. no abd pain or dysuria or diarrhea. no headaches Objective Last 24 Hour Vital Signs Date Time Temp Pulse Resp B/P Pulse Ox O2 Delivery O2 Flow Rate FiO2 06/27/16 11:55 97.0 92 20 121/60 95 Room Air 06/27/16 08:38 97.0 93 20 122/58 95 Room Air 06/27/16 08:09 122/58 06/27/16 08:08 94 122/58 06/27/16 04:00 97.9 91 18 117/56 96 Room Air 06/27/16 00:00 97.7 85 18 112/56 97 Room Air 06/26/16 22:10 72 06/26/16 22:00 120 153/63 06/26/16 20:00 98.2 120 16 153/63 94 Room Air 06/26/16 16:00 96.9 106 17 124/60 97 Room Air 06/26/16 12:12 98.1 109 19 103/54 96 Room Air Intake and Output 06/26/16 06/27/16 18:59 06:59 Intake Total 480 ml 60 ml Output Total 250 ml 450 ml Balance 230 ml -390 ml Intake Oral 480 ml 60 ml Output Urine Total 250 ml 450 ml # Bowel Movements 1 Height (Feet): 5 Height (Inches): 6.00 Weight (Pounds): 150 Objective General Appearance: WD/WN, alert Neck: supple Cardiovascular: regular rhythm Respiratory/Chest: chest wall non-tender, lungs clear, normal breath sounds, no respiratory distress, no accessory muscle use Abdomen: normal bowel sounds, non tender, soft, no organomegaly, no mass Edema: no edema noted Arm (L), no edema noted Arm (R), no edema noted Leg (L), no edema noted Leg (R), no edema noted Pedal (L), no edema noted Pedal (R), no edema noted Generalized Objective bandage over sacrum wound clean and pink. no discharge ISIDORO BYRNE Jun 27, 2016 12:08
[2016-06-27 16:00] VITALS: BP 105/56
[2016-06-27 20:00] VITALS: BP 124/66
[2016-06-27] MEDS: Atorvastatin 20mg tab ORAL SCH (22:15)
[2016-06-28] VITALS: BP 122/59
[2016-06-28 04:00] VITALS: BP 128/65
[2016-06-28] MEDS: Levothyroxine 25mcg tab ORAL SCH (05:52)
[2016-06-28] MEDS: Lactobacillus-GG tablet ORAL SCH ×3 (05:52→21:04)
[2016-06-28] MEDS: NovoLOG Insulin Flexpen SUBQ SCH ×4 (05:53→21:12)
[2016-06-28 08:23] VITALS: BP 141/70
[2016-06-28] MEDS: Heparin 5000 units/ml inj SUBQ SCH ×2 (08:29→21:13)
[2016-06-28] MEDS: levETIRAcetam 500mg/5ml Liquid NG SCH ×2 (08:29→21:04)
[2016-06-28] MEDS: Lisinopril 20mg tab ORAL SCH (08:30)
[2016-06-28] MEDS: ANAGRELIDE 0.5 MG ORAL SCH ×3 (08:31→17:16)
[2016-06-28] MEDS: Memantine 10mg tab ORAL SCH (08:31)
[2016-06-28] MEDS: metFORMIN 500mg tab ORAL SCH ×2 (08:37→17:16)
--- NOTE | 2016-06-28 08:50 | General Progress Note ---
Assessment/Plan Problem List: (1) Hyperglycemia ICD Codes: R73.9 - Hyperglycemia SNOMED: 51499707 (2) Altered mental status ICD Codes: R41.82 - Altered mental status SNOMED: 473339646 Qualifiers: Qualified Codes: R41.82 - Altered mental status, unspecified (3) Sepsis ICD Codes: A41.9 - Sepsis SNOMED: 94775746 (4) Altered mental status ICD Codes: R41.82 - Altered mental status, unspecified SNOMED: 305488284 Qualifiers: Qualified Codes: R41.0 - Disorientation, unspecified (5) Stroke ICD Codes: I63.9 - Stroke SNOMED: 428608837 Qualifiers: (6) Hypothyroid ICD Codes: E03.9 - Hypothyroid SNOMED: 53199207 Qualifiers: Qualified Codes: E03.9 - Hypothyroidism, unspecified (7) Decubitus ulcer, stage 4 with infection ICD Codes: L89.94 - Pressure ulcer of unspecified site, stage 4 SNOMED: 9980326, 990358554 Status: stable, tolerating diet Assessment/Plan wound care/dressing- failed flap x 2 wound care- wet to dry now turn q 2. cont current diabetes rx monitor bs bp rx monitor cbc/cmp will cont to monitor pt remains medically stable for lower level of care son wants to take pt home. Subjective ROS Limited/Unobtainable: No Constitutional: Reports: weakness HEENT: Reports: no symptoms Cardiovascular: Reports: no symptoms Respiratory: Reports: no symptoms Gastrointestinal/Abdominal: Reports: no symptoms Genitourinary: Reports: no symptoms Neurologic/Psychiatric: Reports: pre-existing deficit Endocrine: Reports: no symptoms Hematologic/Lymphatic: Reports: no symptoms Allergies: Coded Allergies: HYDROMORPHONE (Verified Allergy, Unknown, 09/21/14) MORPHINE (Unverified Allergy, Unknown, 04/27/16) All Systems: reviewed and negative except above Subjective no events. w/o complaints. denies cp/sob. eats well. bp stable. no abd pain or dysuria or diarrhea. no headaches. case management notes noted. Objective Last 24 Hour Vital Signs Date Time Temp Pulse Resp B/P Pulse Ox O2 Delivery O2 Flow Rate FiO2 06/28/16 08:30 141/70 06/28/16 08:30 87 141/70 06/28/16 08:23 98.8 87 19 141/70 98 Room Air 06/28/16 04:00 97.6 96 18 128/65 97 Room Air 06/28/16 00:00 97.9 98 18 122/59 98 Room Air 06/27/16 22:15 80 124/74 06/27/16 20:00 97.7 100 18 124/66 Room Air 06/27/16 16:00 97.3 80 18 105/56 100 06/27/16 11:55 97.0 92 20 121/60 95 Room Air Intake and Output 06/27/16 06/28/16 19:00 07:00 Intake Total 350 ml Output Total 250 ml Balance 100 ml Intake Oral 350 ml Output Urine Total 250 ml Height (Feet): 5 Height (Inches): 6.00 Weight (Pounds): 150 Objective General Appearance: WD/WN, alert Neck: supple Cardiovascular: regular rhythm Respiratory/Chest: chest wall non-tender, lungs clear, normal breath sounds, no respiratory distress, no accessory muscle use Abdomen: normal bowel sounds, non tender, soft, no organomegaly, no mass Edema: no edema noted Arm (L), no edema noted Arm (R), no edema noted Leg (L), no edema noted Leg (R), no edema noted Pedal (L), no edema noted Pedal (R), no edema noted Generalized Objective bandage over sacrum wound clean and pink. no discharge ISIDORO BYRNE Jun 28, 2016 08:50
[2016-06-28 12:45] VITALS: BP 116/64
[2016-06-28] MEDS: Dakin's 0.5% (Full Strength) 16oz TOPIC SCH (13:46)
[2016-06-28 16:00] VITALS: BP 113/64
[2016-06-28 20:00] VITALS: BP 120/64
[2016-06-28] MEDS: Atorvastatin 20mg tab ORAL SCH (21:04)
[2016-06-29] VITALS (7 sets, daily range): BP systolic 112–157; BP diastolic 56–72
--- NOTE | 2016-06-29 03:28 | Progress Note ---
DATE: 06/28/2016 CARDIOLOGY PROGRESS NOTE SUBJECTIVE: Status remains unchanged. Discharge planning in progress. Difficulty to find a stable disposition for this patient. OBJECTIVE: VITAL SIGNS: Stable. Afebrile. Glucose controlled. LUNGS: Clear. CARDIAC: Regular with no new murmur. ABDOMEN: Soft. EXTREMITIES: No edema. PLAN: We will continue current medication regimen. Repeat laboratory studies ordered. Await disposition. Darius Duran M.D. DR: SARAI JOB#: [id number] CC:
[2016-06-29 05:16] LABS: BASOPHILS % (AUTO) 1.4 % (0.0-2.0); EOSINOPHILS % (AUTO) 1.2 % (0.0-3.0); LYMPHOCYTES % (AUTO) 26.2 % (20.0-45.0); MEAN CORPUSCULAR HEMOGLOBIN 24.9 PG (27.0-31.0); MEAN CORPUSCULAR HGB CONC 31.9 G/DL (32.0-36.0); MEAN CORPUSCULAR VOLUME 78 FL (80-99); MEAN PLATELET VOLUME 11.7 FL (6.5-10.1); MONOCYTES % (AUTO) 9.2 % (1.0-10.0); NEUTROPHILS % (AUTO) 62.1 % (45.0-75.0); PLATELET COUNT 237 K/UL (150-450); RED CELL DISTRIBUTION WIDTH 16.3 % (11.6-14.8); WHITE BLOOD COUNT 11.7 K/UL (4.8-10.8)
--- NOTE | 2016-06-29 05:28 | Progress Note ---
DATE: 06/27/2016 LATE ENTRY CARDIOLOGY PROGRESS NOTE FOR 06/27/2016: SUBJECTIVE: The patient is without new complaints. No distress. OBJECTIVE: Vital signs are stable. Tolerating diet. Glucose control. Blood pressure control. Platelet count stable on current dose of anagrelide. Discharge planning remains in progress. No new cardiovascular regimen recommendations at this time. Medications reviewed. Darius Duran M.D. DR: Kwadwo JOB#: [id number] CC:
[2016-06-29] MEDS: Levothyroxine 25mcg tab ORAL SCH (05:45)
[2016-06-29] MEDS: NovoLOG Insulin Flexpen SUBQ SCH ×4 (05:46→21:25)
[2016-06-29] MEDS: Lactobacillus-GG tablet ORAL SCH ×3 (05:46→21:19)
[2016-06-29] MEDS: Acetaminophen 500mg (ES) tab ORAL PRN (05:58)
[2016-06-29] MEDS: levETIRAcetam 500mg/5ml Liquid NG SCH ×2 (08:19→21:19)
[2016-06-29] MEDS: metFORMIN 500mg tab ORAL SCH ×2 (08:20→17:20)
[2016-06-29] MEDS: ANAGRELIDE 0.5 MG ORAL SCH ×3 (08:20→17:20)
[2016-06-29] MEDS: Memantine 10mg tab ORAL SCH (08:20)
[2016-06-29] MEDS: Lisinopril 20mg tab ORAL SCH (08:21)
--- NOTE | 2016-06-29 08:56 | Infectious Diseases Prog Note ---
Assessment/Plan Assessment/Plan A; Complicated UTI s/p Rx Leukocytosis DM HPN MRSA & VRE colonization Pressure ulcer P: observe off antibiotic Waiting for placement Subjective ROS Limited/Unobtainable: Yes Musculoskeletal: Reports: no symptoms Allergies: Coded Allergies: HYDROMORPHONE (Verified Allergy, Unknown, 09/21/14) MORPHINE (Unverified Allergy, Unknown, 04/27/16) Objective Vital Signs Last 24 Hour Vital Signs Date Time Temp Pulse Resp B/P Pulse Ox O2 Delivery O2 Flow Rate FiO2 06/29/16 08:21 157/72 06/29/16 08:20 105 157/72 06/29/16 08:17 97.9 105 18 157/72 98 Room Air 06/29/16 08:00 97.9 105 22 157/72 98 Room Air 06/29/16 04:00 97.6 96 18 124/58 97 Room Air 06/29/16 00:00 97.5 103 19 116/56 97 Room Air 06/28/16 21:05 107 120/64 06/28/16 20:00 97.5 107 20 120/64 97 Room Air 06/28/16 16:00 97.3 105 22 113/64 96 Room Air 06/28/16 12:45 98.8 88 20 116/64 95 Room Air Height (Feet): 5 Height (Inches): 6.00 Weight (Pounds): 150 General Appearance: no acute distress HEENT: mucous membranes moist Respiratory/Chest: lungs clear Cardiovascular: normal rate Abdomen: soft, non tender Extremities: no edema Skin: ulcers Neurologic/Psychiatric: alert, responsive Laboratory Tests Test 06/29/16 03:40 White Blood Count 11.7 K/UL (4.8-10.8) H Red Blood Count 4.40 M/UL (4.20-5.40) Hemoglobin 10.9 G/DL (12.0-16.0) L Hematocrit 34.3 % (37.0-47.0) L Mean Corpuscular Volume 78 FL (80-99) L Mean Corpuscular Hemoglobin 24.9 PG (27.0-31.0) L Mean Corpuscular Hemoglobin Concent 31.9 G/DL (32.0-36.0) L Red Cell Distribution Width 16.3 % (11.6-14.8) H Platelet Count 237 K/UL (150-450) Mean Platelet Volume 11.7 FL (6.5-10.1) H Neutrophils (%) (Auto) 62.1 % (45.0-75.0) Lymphocytes (%) (Auto) 26.2 % (20.0-45.0) Monocytes (%) (Auto) 9.2 % (1.0-10.0) Eosinophils (%) (Auto) 1.2 % (0.0-3.0) Basophils (%) (Auto) 1.4 % (0.0-2.0) Current Medications Medications (Trade) Dose Ordered Sig/Rupert Route PRN Reason Start Time Stop Time Status Last Admin Dose Admin Acetaminophen (Tylenol) 500 mg Q6H PRN ORAL Mild Pain/Temp > 100.5 05/30/16 20:15 07/25/16 20:14 06/29/16 05:58 Amlodipine Besylate (Norvasc) 5 mg Q12HR ORAL 04/27/16 21:00 07/25/16 20:59 06/29/16 08:20 Anagrelide HCl (Agrylin) 0.5 mg TID ORAL 06/08/16 22:00 07/08/16 21:59 06/29/16 08:20 Atorvastatin Calcium (Lipitor) 20 mg BEDTIME ORAL 04/27/16 21:00 07/25/16 20:59 06/28/16 21:04 Clonidine HCl (Catapres) 0.1 mg Q4H PRN ORAL For High Blood Pressure 06/19/16 14:30 07/19/16 14:29 06/19/16 14:50 Ferrous Sulfate (Feosol) 325 mg THREE TIMES A DAY ORAL 04/28/16 09:00 07/25/16 08:59 06/29/16 08:20 Heparin Sodium (Porcine) (Heparin 5000 units/ml) 5,000 units EVERY 12 HOURS SUBQ 04/27/16 21:00 07/25/16 20:59 06/28/16 21:13 Insulin Aspart (NovoLOG) BEFORE MEALS AND HS SUBQ 04/27/16 21:00 07/25/16 20:59 06/29/16 05:46 Lactobacillus Acidophilus (Culturelle) 1 tab Q8HR ORAL 04/27/16 22:00 07/25/16 21:59 06/29/16 05:46 Levetiracetam (Keppra) 500 mg Q12HR NG 06/24/16 09:00 07/24/16 08:59 06/29/16 08:19 Levothyroxine Sodium (Synthroid) 25 mcg DAILY@0630 ORAL 05/01/16 06:30 07/25/16 06:29 06/29/16 05:45 Levothyroxine Sodium (Synthroid) 150 mcg DAILY@0630 ORAL 05/01/16 06:30 07/25/16 06:29 06/29/16 05:46 Lisinopril (Prinivil) 40 mg DAILY ORAL 05/02/16 09:00 07/25/16 08:59 06/29/16 08:21 Memantine (Namenda) 10 mg DAILY ORAL 04/28/16 09:00 07/25/16 08:59 06/29/16 08:20 Metformin HCl (Glucophage) 1,000 mg BID ORAL 04/28/16 09:00 07/25/16 08:59 06/29/16 08:20 Sodium Hypochlorite (Dakin's Full Strength) 1 applic DAILY TOPIC 05/29/16 16:00 07/25/16 15:59 06/28/16 13:46 EFRAIN GARCIA Jun 29, 2016 08:56
[2016-06-29] MEDS: Heparin 5000 units/ml inj SUBQ SCH ×2 (10:33→21:26)
[2016-06-29] MEDS: Dakin's 0.5% (Full Strength) 16oz TOPIC SCH (11:44)
[2016-06-29] MEDS: Atorvastatin 20mg tab ORAL SCH (21:19)
[2016-06-30] VITALS: BP 130/64
[2016-06-30 04:00] VITALS: BP 125/64
[2016-06-30] MEDS: Levothyroxine 25mcg tab ORAL SCH (05:59)
[2016-06-30] MEDS: Lactobacillus-GG tablet ORAL SCH ×3 (05:59→21:10)
[2016-06-30] MEDS: NovoLOG Insulin Flexpen SUBQ SCH ×4 (06:04→20:23)
[2016-06-30 07:08] LABS: ALANINE AMINOTRANSFERASE 6 U/L (3-33); ALBUMIN/GLOBULIN RATIO 0.6 (1.0-2.7); ANION GAP 17 (5-15); ASPARTATE AMINO TRANSFERASE 11 U/L (5-40); CALCIUM 9.5 mg/dL (8.6-10.2); CARBON DIOXIDE 22 mEQ/L (20-30); CHLORIDE 110 mEQ/L (98-107); CREATININE 0.7 mg/dL (0.5-0.9); HEMOLYSIS 1; MAGNESIUM 1.5 mg/dL (1.7-2.5); POTASSIUM 4.7 mEQ/L (3.4-4.9); SODIUM 149 mEQ/L (135-145)
[2016-06-30 08:28] VITALS: BP 145/67
[2016-06-30] MEDS: ANAGRELIDE 0.5 MG ORAL SCH ×3 (09:12→17:34)
[2016-06-30] MEDS: Lisinopril 20mg tab ORAL SCH (09:13)
[2016-06-30] MEDS: metFORMIN 500mg tab ORAL SCH ×2 (09:13→17:34)
[2016-06-30] MEDS: Memantine 10mg tab ORAL SCH (09:13)
[2016-06-30] MEDS: levETIRAcetam 500mg/5ml Liquid NG SCH ×2 (09:14→20:22)
[2016-06-30] MEDS: Dakin's 0.5% (Full Strength) 16oz TOPIC SCH (09:14)
[2016-06-30] MEDS: Heparin 5000 units/ml inj SUBQ SCH ×2 (09:16→20:23)
--- NOTE | 2016-06-30 10:15 | Infectious Diseases Prog Note ---
"Assessment/Plan Assessment/Plan antibiotics : none A 1. 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 CVA 5. DM 6. HTN 7. proteus | e.coli UTI s/p rx P 1. continue off antibiotics 2. d/c planned Subjective Constitutional: Denies: chills, fever Respiratory: Denies: dry cough, shortness of breath Gastrointestinal/Abdominal: Denies: diarrhea, nausea, vomiting Musculoskeletal: Denies: pain Allergies: Coded Allergies: HYDROMORPHONE (Verified Allergy, Unknown, 09/21/14) MORPHINE (Unverified Allergy, Unknown, 04/27/16) Objective Vital Signs Last 24 Hour Vital Signs Date Time Temp Pulse Resp B/P Pulse Ox O2 Delivery O2 Flow Rate FiO2 06/30/16 09:13 145/67 06/30/16 09:13 108 145/67 06/30/16 08:28 98.1 108 22 145/67 100 Room Air 06/30/16 04:00 98.6 89 18 125/64 97 Room Air 06/30/16 00:00 98.0 95 20 130/64 95 Room Air 06/29/16 21:20 118 141/69 06/29/16 20:00 97.9 118 22 141/69 94 Room Air 06/29/16 16:00 97.5 66 20 127/71 95 Room Air 06/29/16 12:00 97.5 103 25 112/56 95 Room Air Height (Feet): 5 Height (Inches): 6.00 Weight (Pounds): 150 Respiratory/Chest: lungs clear Cardiovascular: normal rate, regular rhythm, no gallop/murmur Abdomen: soft, non tender Extremities: no edema Laboratory Tests Test 06/30/16 05:15 Sodium Level 149 mEQ/L (135-145) H Potassium Level 4.7 mEQ/L (3.4-4.9) Chloride Level 110 mEQ/L (98-107) H Carbon Dioxide Level 22 mEQ/L (20-30) Anion Gap 17 (5-15) H Blood Urea Nitrogen 34 mg/dL (7-23) H Creatinine 0.7 mg/dL (0.5-0.9) Estimat Glomerular Filtration Rate mL/min (>60) Glucose Level 169 mg/dL (74-106) H Calcium Level 9.5 mg/dL (8.6-10.2) Magnesium Level 1.5 mg/dL (1.7-2.5) L Total Bilirubin 0.3 mg/dL (0.0-1.2) Aspartate Amino Transf (AST/SGOT) 11 U/L (5-40) Alanine Aminotransferase (ALT/SGPT) 6 U/L (3-33) Alkaline Phosphatase 65 U/L (35-104) Total Protein 7.0 g/dL (6.6-8.7) Albumin 2.7 g/dL (3.5-5.2) L Globulin 4.3 g/dL Albumin/Globulin Ratio 0.6 (1.0-2.7) L ALESSIO KRISHNAMURTHY Jun 30, 2016 10:15"
[2016-06-30 12:44] VITALS: BP 131/58
[2016-06-30 16:00] VITALS: BP 139/66
--- NOTE | 2016-06-30 17:24 | General Progress Note ---
Assessment/Plan Problem List: (1) Hyperglycemia ICD Codes: R73.9 - Hyperglycemia SNOMED: 28119864 (2) Altered mental status ICD Codes: R41.82 - Altered mental status SNOMED: 136444520 Qualifiers: Qualified Codes: R41.82 - Altered mental status, unspecified (3) Sepsis ICD Codes: A41.9 - Sepsis SNOMED: 45807212 (4) Altered mental status ICD Codes: R41.82 - Altered mental status, unspecified SNOMED: 652677548 Qualifiers: Qualified Codes: R41.0 - Disorientation, unspecified (5) Stroke ICD Codes: I63.9 - Stroke SNOMED: 242804475 Qualifiers: (6) Hypothyroid ICD Codes: E03.9 - Hypothyroid SNOMED: 62255295 Qualifiers: Qualified Codes: E03.9 - Hypothyroidism, unspecified (7) Decubitus ulcer, stage 4 with infection ICD Codes: L89.94 - Pressure ulcer of unspecified site, stage 4 SNOMED: 5121565, 780431977 Status: stable, progressing Assessment/Plan wound care/dressing- failed flap x 2 wound care- wet to dry now turn q 2. cont current diabetes rx monitor bs bp rx ivf per cards monitor cbc/cmp will cont to monitor pt remains medically stable for lower level of care son wants to take pt home. Subjective ROS Limited/Unobtainable: No Constitutional: Reports: malaise, weakness HEENT: Reports: no symptoms Cardiovascular: Reports: no symptoms Respiratory: Reports: no symptoms Gastrointestinal/Abdominal: Reports: no symptoms Genitourinary: Reports: no symptoms Neurologic/Psychiatric: Reports: no symptoms Endocrine: Reports: no symptoms Hematologic/Lymphatic: Reports: no symptoms Allergies: Coded Allergies: HYDROMORPHONE (Verified Allergy, Unknown, 09/21/14) MORPHINE (Unverified Allergy, Unknown, 04/27/16) All Systems: reviewed and negative except above Subjective hr elevated. elevated sodium noted. w/o complaints. d/w son at the bedside. Objective Last 24 Hour Vital Signs Date Time Temp Pulse Resp B/P Pulse Ox O2 Delivery O2 Flow Rate FiO2 06/30/16 12:44 98.2 120 19 131/58 95 Room Air 06/30/16 09:13 145/67 06/30/16 09:13 108 145/67 06/30/16 08:28 98.1 108 22 145/67 100 Room Air 06/30/16 04:00 98.6 89 18 125/64 97 Room Air 06/30/16 00:00 98.0 95 20 130/64 95 Room Air 06/29/16 21:20 118 141/69 06/29/16 20:00 97.9 118 22 141/69 94 Room Air Intake and Output 06/29/16 06/30/16 19:00 07:00 Intake Total 220 ml 360 ml Output Total 250 ml 650 ml Balance -30 ml -290 ml Intake Oral 220 ml 360 ml Output Urine Total 250 ml 650 ml # Bowel Movements 1 Laboratory Tests 06/30/16 05:15: Sodium Level 149H, Potassium Level 4.7, Chloride Level 110H, Carbon Dioxide Level 22, Anion Gap 17H, Blood Urea Nitrogen 34H, Creatinine 0.7, Estimat Glomerular Filtration Rate , Glucose Level 169H, Calcium Level 9.5, Magnesium Level 1.5L, Total Bilirubin 0.3, Aspartate Amino Transf (AST/SGOT) 11, Alanine Aminotransferase (ALT/SGPT) 6, Alkaline Phosphatase 65, Total Protein 7.0, Albumin 2.7L, Globulin 4.3, Albumin/Globulin Ratio 0.6L Height (Feet): 5 Height (Inches): 6.00 Weight (Pounds): 150 Objective General Appearance: WD/WN, alert Neck: supple Cardiovascular: regular rhythm Respiratory/Chest: chest wall non-tender, lungs clear, normal breath sounds, no respiratory distress, no accessory muscle use Abdomen: normal bowel sounds, non tender, soft, no organomegaly, no mass Edema: no edema noted Arm (L), no edema noted Arm (R), no edema noted Leg (L), no edema noted Leg (R), no edema noted Pedal (L), no edema noted Pedal (R), no edema noted Generalized Objective bandage over sacrum wound clean and pink. no discharge ISIDORO BYRNE Jun 30, 2016 17:24
[2016-06-30] MEDS: Acetaminophen 500mg (ES) tab ORAL PRN (19:45)
[2016-06-30 20:00] VITALS: BP 139/75
--- NOTE | 2016-06-30 20:09 | Progress Note ---
DATE: 06/30/2016 SUBJECTIVE: The patient is without distress. No shortness of breath. Intake is fair. OBJECTIVE: VITAL SIGNS: Blood pressure 145/67, pulse 108, and respirations 18. NECK: Supple. LUNGS: Clear. CARDIAC: Regular. Normal S1, S2. ABDOMEN: Soft. No edema. LABORATORY DATA: Magnesium 1.5, potassium 4.7, bicarbonate 22, BUN 34, creatinine 0.7, and glucose 169. Platelet count is 237,000. IMPRESSION: 1. Essential thrombocytosis, controlled with anagrelide. 2. Dehydration. 3. . 4. Hypomagnesemia, recurrent. 5. Sacral wound, status post flap, improving. 6. Type 2 diabetes mellitus. 7. Cerebrovascular disease with multiinfarct dementia. PLAN: 1. Continue current therapy. 2. Add hypotonic IV fluids and IV magnesium. 3. Recheck laboratory studies in 48 hours. 4. Encourage oral intake. Darius Duran M.D. DR: KATHARINA JOB#: [id number] CC:
[2016-06-30] MEDS: Atorvastatin 20mg tab ORAL SCH (20:22)
[2016-07-01] VITALS: BP 139/75
[2016-07-01 04:00] VITALS: BP 140/68
[2016-07-01] MEDS: Lactobacillus-GG tablet ORAL SCH ×3 (06:24→21:08)
[2016-07-01] MEDS: Levothyroxine 25mcg tab ORAL SCH (06:24)
[2016-07-01] MEDS: NovoLOG Insulin Flexpen SUBQ SCH ×4 (06:24→21:09)
[2016-07-01 08:00] VITALS: BP 159/94
[2016-07-01] MEDS: ANAGRELIDE 0.5 MG ORAL SCH ×3 (08:32→17:53)
[2016-07-01] MEDS: Lisinopril 20mg tab ORAL SCH (08:32)
[2016-07-01] MEDS: metFORMIN 500mg tab ORAL SCH ×2 (08:32→17:53)
[2016-07-01] MEDS: levETIRAcetam 500mg/5ml Liquid NG SCH ×2 (08:32→20:37)
[2016-07-01] MEDS: Memantine 10mg tab ORAL SCH (08:32)
[2016-07-01] MEDS: Heparin 5000 units/ml inj SUBQ SCH ×2 (08:36→20:40)
[2016-07-01] MEDS: Dakin's 0.5% (Full Strength) 16oz TOPIC SCH (08:37)
[2016-07-01] MEDS: Fluconazole 100mg tab ORAL SCH (09:05)
--- NOTE | 2016-07-01 09:42 | General Progress Note ---
Assessment/Plan Problem List: (1) Hyperglycemia ICD Codes: R73.9 - Hyperglycemia SNOMED: 22974533 (2) Altered mental status ICD Codes: R41.82 - Altered mental status SNOMED: 847358005 Qualifiers: Qualified Codes: R41.82 - Altered mental status, unspecified (3) Sepsis ICD Codes: A41.9 - Sepsis SNOMED: 95057010 (4) Altered mental status ICD Codes: R41.82 - Altered mental status, unspecified SNOMED: 731267931 Qualifiers: Qualified Codes: R41.0 - Disorientation, unspecified (5) Stroke ICD Codes: I63.9 - Stroke SNOMED: 686666744 Qualifiers: (6) Hypothyroid ICD Codes: E03.9 - Hypothyroid SNOMED: 71054138 Qualifiers: Qualified Codes: E03.9 - Hypothyroidism, unspecified (7) Decubitus ulcer, stage 4 with infection ICD Codes: L89.94 - Pressure ulcer of unspecified site, stage 4 SNOMED: 8124805, 950818224 Status: stable Assessment/Plan wound care/dressing- failed flap x 2 wound care- wet to dry now turn q 2. cont current diabetes rx monitor bs bp rx ivf per cards monitor cbc/cmp iv abx per ID follow up cultures hold dc with fever and tachycardia will cont to monitor pt remains medically stable for lower level of care son wants to take pt home. Subjective ROS Limited/Unobtainable: No Constitutional: Reports: malaise, weakness HEENT: Reports: no symptoms Cardiovascular: Reports: no symptoms Respiratory: Reports: no symptoms Gastrointestinal/Abdominal: Reports: no symptoms Genitourinary: Reports: no symptoms Neurologic/Psychiatric: Reports: pre-existing deficit Endocrine: Reports: no symptoms Hematologic/Lymphatic: Reports: no symptoms Allergies: Coded Allergies: HYDROMORPHONE (Verified Allergy, Unknown, 09/21/14) MORPHINE (Unverified Allergy, Unknown, 04/27/16) All Systems: reviewed and negative except above Subjective events noted. +fever. cultures and abx ordered by ID. on ivf. Objective Last 24 Hour Vital Signs Date Time Temp Pulse Resp B/P Pulse Ox O2 Delivery O2 Flow Rate FiO2 07/01/16 08:32 140/68 07/01/16 08:32 60 140/68 07/01/16 08:00 98.7 120 18 159/94 97 Room Air 07/01/16 04:00 99.9 60 20 140/68 95 Room Air 07/01/16 00:00 101.7 134 24 139/75 93 Room Air 06/30/16 20:44 99.3 06/30/16 20:21 120 139/66 06/30/16 20:00 101.7 134 24 139/75 93 Room Air 06/30/16 16:00 99.0 120 18 139/66 93 Room Air 06/30/16 12:44 98.2 120 19 131/58 95 Room Air Intake and Output 06/30/16 07/01/16 19:00 07:00 Intake Total 420 ml 720 ml Output Total 300 ml 400 ml Balance 120 ml 320 ml Intake Oral 120 ml 120 ml IV Total 300 ml 600 ml Output Urine Total 300 ml 400 ml Height (Feet): 5 Height (Inches): 6.00 Weight (Pounds): 150 Objective General Appearance: WD/WN, alert Neck: supple Cardiovascular: regular rhythm Respiratory/Chest: chest wall non-tender, lungs clear, normal breath sounds, no respiratory distress, no accessory muscle use Abdomen: normal bowel sounds, non tender, soft, no organomegaly, no mass Edema: no edema noted Arm (L), no edema noted Arm (R), no edema noted Leg (L), no edema noted Leg (R), no edema noted Pedal (L), no edema noted Pedal (R), no edema noted Generalized Objective bandage over sacrum wound clean and pink. no discharge ISIDORO BYRNE Jul 01, 2016 09:42
[2016-07-01] MEDS: Piperacillin/Tazobactam 3.375 GM in D5W 110 ML IVPB SCH ×2 (10:23→21:35)
[2016-07-01] MEDS ORDERED: 1/2NS w/KCl 20mEq 1000ml IV ONE (10:51)
[2016-07-01] MEDS ORDERED: Tubing IV Secondary IV ONE (10:51)
[2016-07-01 11:37] LABS: APPEARANCE,URINE CLEAR; KETONES,URINE 1+ (NEGATIVE); LEUKOCYTE ESTERASE ,URINE 3+ (NEGATIVE); NITRITE,URINE POSITIVE (NEGATIVE); PH,URINE 5 (4.5-8.0); PROTEIN,URINE 2+ (NEGATIVE); UROBILINOGEN,URINE NORMAL MG/DL (0.0-1.0)
[2016-07-01 11:59] LABS: BACTERIA,URINE MODERATE /HPF; SQUAMOUS EPITHELIAL CELL,UR FEW /LPF (NONE/OCC); WBC,URINE 20-30 /HPF (0 - 2)
[2016-07-01 12:00] VITALS: BP 141/70
[2016-07-01] MEDS: Acetaminophen 500mg (ES) tab ORAL PRN (12:08)
[2016-07-01 16:00] VITALS: BP 106/65
[2016-07-01 20:00] VITALS: BP 124/61
[2016-07-01] MEDS: Atorvastatin 20mg tab ORAL SCH (20:37)
[2016-07-02] VITALS (7 sets, daily range): BP systolic 118–121; BP diastolic 60–70
[2016-07-02] MEDS: Levothyroxine 25mcg tab ORAL SCH (06:03)
[2016-07-02] MEDS: Lactobacillus-GG tablet ORAL SCH ×3 (06:03→21:14)
[2016-07-02] MEDS: NovoLOG Insulin Flexpen SUBQ SCH ×4 (06:05→21:13)
[2016-07-02] MEDS: Piperacillin/Tazobactam 3.375 GM in D5W 110 ML IVPB SCH ×3 (06:38→21:14)
[2016-07-02 07:32] LABS: BASOPHILS % (AUTO) 1.1 % (0.0-2.0); EOSINOPHILS % (AUTO) 0.6 % (0.0-3.0); LYMPHOCYTES % (AUTO) 20.6 % (20.0-45.0); MEAN CORPUSCULAR HEMOGLOBIN 24.6 PG (27.0-31.0); MEAN CORPUSCULAR HGB CONC 31.9 G/DL (32.0-36.0); MEAN CORPUSCULAR VOLUME 77 FL (80-99); MEAN PLATELET VOLUME 10.6 FL (6.5-10.1); MONOCYTES % (AUTO) 6.4 % (1.0-10.0); NEUTROPHILS % (AUTO) 71.3 % (45.0-75.0); PLATELET COUNT 207 K/UL (150-450); RED BLOOD COUNT 4.43 M/UL (4.20-5.40); RED CELL DISTRIBUTION WIDTH 15.9 % (11.6-14.8); WHITE BLOOD COUNT 17.2 K/UL (4.8-10.8)
[2016-07-02 08:11] LABS: ANION GAP 17 (5-15); CALCIUM 9.3 mg/dL (8.6-10.2); CARBON DIOXIDE 23 mEQ/L (20-30); CHLORIDE 107 mEQ/L (98-107); CREATININE 0.7 mg/dL (0.5-0.9); HEMOLYSIS 0; MAGNESIUM 1.7 mg/dL (1.7-2.5); POTASSIUM 3.9 mEQ/L (3.4-4.9); SODIUM 147 mEQ/L (135-145)
[2016-07-02] MEDS: Fluconazole 100mg tab ORAL SCH (08:16)
[2016-07-02] MEDS: ANAGRELIDE 0.5 MG ORAL SCH ×3 (08:17→17:35)
[2016-07-02] MEDS: metFORMIN 500mg tab ORAL SCH ×2 (08:17→17:35)
[2016-07-02] MEDS: levETIRAcetam 500mg/5ml Liquid NG SCH ×2 (08:18→20:02)
[2016-07-02] MEDS: Lisinopril 20mg tab ORAL SCH (08:18)
[2016-07-02] MEDS: Memantine 10mg tab ORAL SCH (08:18)
[2016-07-02] MEDS: Dakin's 0.5% (Full Strength) 16oz TOPIC SCH (08:18)
[2016-07-02] MEDS: Heparin 5000 units/ml inj SUBQ SCH ×2 (08:24→20:04)
--- NOTE | 2016-07-02 10:39 | General Progress Note ---
Assessment/Plan Problem List: (1) Hyperglycemia ICD Codes: R73.9 - Hyperglycemia SNOMED: 86968892 (2) Altered mental status ICD Codes: R41.82 - Altered mental status SNOMED: 058819778 Qualifiers: Qualified Codes: R41.82 - Altered mental status, unspecified (3) Sepsis ICD Codes: A41.9 - Sepsis SNOMED: 94627162 (4) Altered mental status ICD Codes: R41.82 - Altered mental status, unspecified SNOMED: 082390392 Qualifiers: Qualified Codes: R41.0 - Disorientation, unspecified (5) Stroke ICD Codes: I63.9 - Stroke SNOMED: 623090416 Qualifiers: (6) Hypothyroid ICD Codes: E03.9 - Hypothyroid SNOMED: 51624857 Qualifiers: Qualified Codes: E03.9 - Hypothyroidism, unspecified (7) Decubitus ulcer, stage 4 with infection ICD Codes: L89.94 - Pressure ulcer of unspecified site, stage 4 SNOMED: 7352087, 911320050 Status: stable, progressing Assessment/Plan wound care/dressing- failed flap x 2 wound care- wet to dry now turn q 2. cont current diabetes rx monitor bs bp rx ivf per cards monitor cbc/cmp iv abx per ID follow up cultures hold dc with fever and tachycardia will cont to monitor pt remains medically stable for lower level of care son wants to take pt home. Subjective ROS Limited/Unobtainable: No Constitutional: Reports: malaise, weakness HEENT: Reports: no symptoms Cardiovascular: Reports: no symptoms Respiratory: Reports: no symptoms Gastrointestinal/Abdominal: Reports: no symptoms Genitourinary: Reports: no symptoms Neurologic/Psychiatric: Reports: pre-existing deficit Endocrine: Reports: no symptoms Hematologic/Lymphatic: Reports: no symptoms Allergies: Coded Allergies: HYDROMORPHONE (Verified Allergy, Unknown, 09/21/14) MORPHINE (Unverified Allergy, Unknown, 04/27/16) All Systems: reviewed and negative except above Subjective events noted. fever better. on iv abx. ?uti Objective Last 24 Hour Vital Signs Date Time Temp Pulse Resp B/P Pulse Ox O2 Delivery O2 Flow Rate FiO2 07/02/16 08:18 121/61 07/02/16 08:17 108 121/63 07/02/16 08:00 97.9 106 18 121/61 99 Room Air 07/02/16 06:53 98.1 105 20 121/64 85 Non-Rebreather 07/02/16 04:00 98.1 105 20 121/64 85 Room Air 07/02/16 00:00 98.8 105 20 121/62 96 Room Air 07/01/16 20:37 100 106/65 07/01/16 20:00 97.9 110 18 124/61 100 Room Air 07/01/16 16:00 97.6 100 20 106/65 100 Room Air 07/01/16 13:07 102.0 07/01/16 12:00 102.0 129 20 141/70 96 Room Air Intake and Output 07/01/16 07/02/16 19:00 07:00 Intake Total 1300.0 ml 845.0 ml Output Total 200 ml 275 ml Balance 1100.0 ml 570.0 ml Intake Oral 440 ml 360 ml IV Total 860.0 ml 485.0 ml Output Urine Total 200 ml 275 ml Laboratory Tests 07/02/16 04:50: White Blood Count 17.2H, Red Blood Count 4.43, Hemoglobin 10.9L, Hematocrit 34.2L, Mean Corpuscular Volume 77L, Mean Corpuscular Hemoglobin 24.6L, Mean Corpuscular Hemoglobin Concent 31.9L, Red Cell Distribution Width 15.9H, Platelet Count 207, Mean Platelet Volume 10.6H, Neutrophils (%) (Auto) 71.3, Lymphocytes (%) (Auto) 20.6, Monocytes (%) (Auto) 6.4, Eosinophils (%) (Auto) 0.6, Basophils (%) (Auto) 1.1, Sodium Level 147H, Potassium Level 3.9, Chloride Level 107, Carbon Dioxide Level 23, Anion Gap 17H, Blood Urea Nitrogen 28H, Creatinine 0.7, Estimat Glomerular Filtration Rate , Glucose Level 156H, Calcium Level 9.3, Magnesium Level 1.7 Height (Feet): 5 Height (Inches): 6.00 Weight (Pounds): 150 Objective General Appearance: WD/WN, alert Neck: supple Cardiovascular: regular rhythm Respiratory/Chest: chest wall non-tender, lungs clear, normal breath sounds, no respiratory distress, no accessory muscle use Abdomen: normal bowel sounds, non tender, soft, no organomegaly, no mass Edema: no edema noted Arm (L), no edema noted Arm (R), no edema noted Leg (L), no edema noted Leg (R), no edema noted Pedal (L), no edema noted Pedal (R), no edema noted Generalized Objective bandage over sacrum wound clean and pink. no discharge ISIDORO BYRNE Jul 02, 2016 10:39
--- NOTE | 2016-07-02 11:48 | Infectious Diseases Prog Note ---
"Assessment/Plan Assessment/Plan antibiotics : zosyn, fluconazole A 1. 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 CVA 5. DM 6. HTN 7. gram negative UTI 8. fever P 1. zosyn, fluconazole started 2. will follow up cultures Subjective Constitutional: Denies: chills, fever Respiratory: Denies: dry cough, shortness of breath Gastrointestinal/Abdominal: Denies: diarrhea, nausea, vomiting Musculoskeletal: Denies: pain Allergies: Coded Allergies: HYDROMORPHONE (Verified Allergy, Unknown, 09/21/14) MORPHINE (Unverified Allergy, Unknown, 04/27/16) Objective Vital Signs Last 24 Hour Vital Signs Date Time Temp Pulse Resp B/P Pulse Ox O2 Delivery O2 Flow Rate FiO2 07/02/16 08:18 121/61 07/02/16 08:17 108 121/63 07/02/16 08:00 97.9 106 18 121/61 99 Room Air 07/02/16 06:53 98.1 105 20 121/64 85 Non-Rebreather 07/02/16 04:00 98.1 105 20 121/64 85 Room Air 07/02/16 00:00 98.8 105 20 121/62 96 Room Air 07/01/16 20:37 100 106/65 07/01/16 20:00 97.9 110 18 124/61 100 Room Air 07/01/16 16:00 97.6 100 20 106/65 100 Room Air 07/01/16 13:07 102.0 07/01/16 12:00 102.0 129 20 141/70 96 Room Air Height (Feet): 5 Height (Inches): 6.00 Weight (Pounds): 150 Respiratory/Chest: lungs clear Cardiovascular: normal rate, regular rhythm, no gallop/murmur Abdomen: soft, non tender Extremities: no edema Microbiology Date/Time Source Procedure Growth Status 07/01/16 09:15 Urine,Clean Catch Urine Culture - Preliminary Gram Negative Bacillus 1 Gram Negative Bacillus 2 Resulted Laboratory Tests Test 07/02/16 04:50 White Blood Count 17.2 K/UL (4.8-10.8) H Red Blood Count 4.43 M/UL (4.20-5.40) Hemoglobin 10.9 G/DL (12.0-16.0) L Hematocrit 34.2 % (37.0-47.0) L Mean Corpuscular Volume 77 FL (80-99) L Mean Corpuscular Hemoglobin 24.6 PG (27.0-31.0) L Mean Corpuscular Hemoglobin Concent 31.9 G/DL (32.0-36.0) L Red Cell Distribution Width 15.9 % (11.6-14.8) H Platelet Count 207 K/UL (150-450) Mean Platelet Volume 10.6 FL (6.5-10.1) H Neutrophils (%) (Auto) 71.3 % (45.0-75.0) Lymphocytes (%) (Auto) 20.6 % (20.0-45.0) Monocytes (%) (Auto) 6.4 % (1.0-10.0) Eosinophils (%) (Auto) 0.6 % (0.0-3.0) Basophils (%) (Auto) 1.1 % (0.0-2.0) Sodium Level 147 mEQ/L (135-145) H Potassium Level 3.9 mEQ/L (3.4-4.9) Chloride Level 107 mEQ/L (98-107) Carbon Dioxide Level 23 mEQ/L (20-30) Anion Gap 17 (5-15) H Blood Urea Nitrogen 28 mg/dL (7-23) H Creatinine 0.7 mg/dL (0.5-0.9) Estimat Glomerular Filtration Rate mL/min (>60) Glucose Level 156 mg/dL (74-106) H Calcium Level 9.3 mg/dL (8.6-10.2) Magnesium Level 1.7 mg/dL (1.7-2.5) ALESSIO KRISHNAMURTHY Jul 02, 2016 11:48"
[2016-07-02] MEDS ORDERED: 1/2 NS 1000ml IV ONE (12:08)
[2016-07-02] MEDS: Atorvastatin 20mg tab ORAL SCH (20:02)
[2016-07-03] VITALS (7 sets, daily range): BP systolic 108–147; BP diastolic 51–75
--- NOTE | 2016-07-03 04:28 | Progress Note ---
DATE: 07/02/2016 CARDIOLOGY PROGRESS NOTE SUBJECTIVE: The patient is defervesced. Empiric antibiotics initiated. Signs of an urinary tract infection are noted. OBJECTIVE: VITAL SIGNS: Blood pressure 108/60, heart rate 104, respirations 18, and afebrile. NECK: Supple. LUNGS: Clear. CARDIAC: Regular rhythm. Rapid rate. Normal S1 and S2. ABDOMEN: Soft. EXTREMITIES: No edema. LABORATORY DATA: Sodium 147, potassium 3.9, BUN 28, creatinine 0.7, bicarb 23, and magnesium 1.7. White count is 17.2. IMPRESSION: 1. Urinary tract infection. 2. Sepsis. 3. Fevers. 4. Secondary sinus tachycardia. 5. Dehydration. 6. Hypernatremia. 7. Hypovolemia. 8. Hypertensive heart disease. 9. Hypothyroidism. PLAN: 1. Empiric antibiotics. 2. Await final cultures. 3. Continue hypotonic IV fluids. 4. DVT prophylaxis. Darius Duran M.D. DR: FREDERICK JOB#: [id number] CC:
[2016-07-03] MEDS: Piperacillin/Tazobactam 3.375 GM in D5W 110 ML IVPB SCH ×3 (04:49→22:00)
[2016-07-03] MEDS: Lactobacillus-GG tablet ORAL SCH ×3 (05:49→22:00)
[2016-07-03] MEDS: Levothyroxine 25mcg tab ORAL SCH (05:49)
[2016-07-03] MEDS: NovoLOG Insulin Flexpen SUBQ SCH ×4 (05:52→21:57)
[2016-07-03 07:16] LABS: BASOPHILS % (AUTO) 0.8 % (0.0-2.0); EOSINOPHILS % (AUTO) 1.3 % (0.0-3.0); LYMPHOCYTES % (AUTO) 24.5 % (20.0-45.0); MEAN CORPUSCULAR HEMOGLOBIN 24.5 PG (27.0-31.0); MEAN CORPUSCULAR VOLUME 77 FL (80-99); MEAN PLATELET VOLUME 10.8 FL (6.5-10.1); MONOCYTES % (AUTO) 6.5 % (1.0-10.0); PLATELET COUNT 168 K/UL (150-450); RED BLOOD COUNT 4.42 M/UL (4.20-5.40); RED CELL DISTRIBUTION WIDTH 15.9 % (11.6-14.8); WHITE BLOOD COUNT 15.1 K/UL (4.8-10.8)
[2016-07-03 07:34] LABS: ANION GAP 17 (5-15); CARBON DIOXIDE 23 mEQ/L (20-30); CHLORIDE 104 mEQ/L (98-107); CREATININE 0.7 mg/dL (0.5-0.9); HEMOLYSIS 1; POTASSIUM 3.9 mEQ/L (3.4-4.9); SODIUM 144 mEQ/L (135-145)
--- NOTE | 2016-07-03 07:48 | Progress Note ---
DATE: 07/01/2016 CARDIOLOGY PROGRESS NOTE SUBJECTIVE: Condition had worsened. The patient is febrile to 101.2. Episodes of sinus tachycardia noted as well. No complaints of shortness of breath, cough, chest pain, or abdominal pain. No nausea or vomiting. OBJECTIVE: VITAL SIGNS: Blood pressure 120/64, pulse 110, respirations 18, and oxygen saturation on room air 94% to 99%. LUNGS: Clear. CARDIAC: Regular. Normal S1 and S2. ABDOMEN: Soft. EXTREMITIES: No edema. IMPRESSION: 1. Fever, possible new infection secondary to sinus tachycardia. 2. Sacral wound, status post revision. 3. Hypertensive heart disease. 4. Dehydration. 5. Hypernatremia. PLAN: 1. Continue hypotonic IV fluids. 2. Panculture. 3. Infectious disease followup. Darius Duran M.D. DR: DOE JOB#: [id number] CC:
[2016-07-03] MEDS: levETIRAcetam 500mg/5ml Liquid NG SCH ×2 (08:29→21:57)
[2016-07-03] MEDS: metFORMIN 500mg tab ORAL SCH ×2 (08:31→17:30)
[2016-07-03] MEDS: Fluconazole 100mg tab ORAL SCH (08:31)
[2016-07-03] MEDS: ANAGRELIDE 0.5 MG ORAL SCH ×3 (08:31→17:30)
[2016-07-03] MEDS: Lisinopril 20mg tab ORAL SCH ×2 (08:31→08:34)
[2016-07-03] MEDS: Memantine 10mg tab ORAL SCH (08:32)
[2016-07-03] MEDS: Heparin 5000 units/ml inj SUBQ SCH ×2 (08:33→21:57)
[2016-07-03] MEDS: Dakin's 0.5% (Full Strength) 16oz TOPIC SCH (08:33)
--- NOTE | 2016-07-03 11:39 | Infectious Diseases Prog Note ---
"Assessment/Plan Assessment/Plan antibiotics : zosyn, fluconazole A 1. 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 CVA 5. DM 6. HTN 7. e.coli | pseudomonas UTI 8. fever improving 9. leucocytosis improving P 1. continue zosyn 4 more days 2. d.c fluconazole 3. will follow up cultures Subjective ROS Limited/Unobtainable: Yes Allergies: Coded Allergies: HYDROMORPHONE (Verified Allergy, Unknown, 09/21/14) MORPHINE (Unverified Allergy, Unknown, 04/27/16) Objective Vital Signs Last 24 Hour Vital Signs Date Time Temp Pulse Resp B/P Pulse Ox O2 Delivery O2 Flow Rate FiO2 07/03/16 08:31 103 114/53 07/03/16 08:00 98.1 100 20 114/53 98 Room Air 07/03/16 04:00 97.5 103 18 137/63 99 Room Air 07/03/16 00:00 97.5 102 18 130/67 92 Room Air 07/02/16 20:29 97.9 90 20 120/70 99 Room Air 07/02/16 20:01 102 118/60 07/02/16 16:26 98.1 102 19 118/60 98 Room Air 07/02/16 12:00 97.5 110 18 120/64 94 Room Air Height (Feet): 5 Height (Inches): 6.00 Weight (Pounds): 150 Respiratory/Chest: lungs clear Cardiovascular: normal rate, regular rhythm, no gallop/murmur Abdomen: soft, non tender Extremities: no edema Microbiology Date/Time Source Procedure Growth Status 07/01/16 09:15 Urine,Clean Catch Urine Culture - Final Escherichia Coli - Esbl Pseudomonas Aeruginosa Complete Laboratory Tests Test 07/03/16 05:05 White Blood Count 15.1 K/UL (4.8-10.8) H Red Blood Count 4.42 M/UL (4.20-5.40) Hemoglobin 10.8 G/DL (12.0-16.0) L Hematocrit 33.9 % (37.0-47.0) L Mean Corpuscular Volume 77 FL (80-99) L Mean Corpuscular Hemoglobin 24.5 PG (27.0-31.0) L Mean Corpuscular Hemoglobin Concent 32.0 G/DL (32.0-36.0) Red Cell Distribution Width 15.9 % (11.6-14.8) H Platelet Count 168 K/UL (150-450) Mean Platelet Volume 10.8 FL (6.5-10.1) H Neutrophils (%) (Auto) 67.0 % (45.0-75.0) Lymphocytes (%) (Auto) 24.5 % (20.0-45.0) Monocytes (%) (Auto) 6.5 % (1.0-10.0) Eosinophils (%) (Auto) 1.3 % (0.0-3.0) Basophils (%) (Auto) 0.8 % (0.0-2.0) Sodium Level 144 mEQ/L (135-145) Potassium Level 3.9 mEQ/L (3.4-4.9) Chloride Level 104 mEQ/L (98-107) Carbon Dioxide Level 23 mEQ/L (20-30) Anion Gap 17 (5-15) H Blood Urea Nitrogen 22 mg/dL (7-23) Creatinine 0.7 mg/dL (0.5-0.9) Estimat Glomerular Filtration Rate mL/min (>60) Glucose Level 195 mg/dL (74-106) H Calcium Level 9.0 mg/dL (8.6-10.2) ALESSIO KRISHNAMURTHY Jul 03, 2016 11:39"
--- NOTE | 2016-07-03 12:36 | Wound Care Consultation ---
Wound Assessment Wound Assessment : Wound Number: #1 Wound Present on Admission: Yes New Wound: No Status Change of Wound: No Wound Location Body Site Modif: mid Wound Location Body Site: sacral Wound Type: pressure ulcer Gloria Test: Does not Gloria Pressure Ulcer Stage: IV/unstageable Incisional Wounds: Dehisced Incision Wound Thickness: Full Thickness Wound Length: 9.0 Wound Width: 9.0 Wound Depth: 2.5 Percent of Wound [place]/Red: 95 Percent of Wound Bed Yellow/Wh: 5 Wound Drainage Description: Serosanguineous Wound Drainage Amount: Moderate Wound Drainage Odor: None/Absent Tissue Surrounding Wound: Macerated Wound Undermining at 12:00: 2.5 Wound Undermining at 3:00: 1.0 - noted wound bed attaching Wound General Appearance: Reddened, Draining, Bone Palpable, Incision Dehiscence Wound Comment #1 sacral non-healing pressure ulcer stage IV/Unstageable s/p dehiscence incision. upon reassessment noted good progress to wound site. noted wound bed attaching , noted decrease in undermining at 12:00 and 3:00, Wound bed beefy pink ,no foul odor. noted bone palpable to site. continue current wound care remains effective at this time. Recommendation -Local wound care as ordered. -Turn and reposition. -Keep clean and dry. -Optimize nutrition. -Offload affected site. -Low air loss with AP p200 . -Avoid shear and friction to affected site. -Assess and notify MD for any changes of condition noted. SAMMIE BARLOW Jul 03, 2016 12:36
--- NOTE | 2016-07-03 13:38 | General Progress Note ---
Assessment/Plan Problem List: (1) Hyperglycemia ICD Codes: R73.9 - Hyperglycemia SNOMED: 99368679 (2) Altered mental status ICD Codes: R41.82 - Altered mental status SNOMED: 672741319 Qualifiers: Qualified Codes: R41.82 - Altered mental status, unspecified (3) Sepsis ICD Codes: A41.9 - Sepsis SNOMED: 27653991 (4) Altered mental status ICD Codes: R41.82 - Altered mental status, unspecified SNOMED: 568799412 Qualifiers: Qualified Codes: R41.0 - Disorientation, unspecified (5) Stroke ICD Codes: I63.9 - Stroke SNOMED: 347638380 Qualifiers: (6) Hypothyroid ICD Codes: E03.9 - Hypothyroid SNOMED: 38167740 Qualifiers: Qualified Codes: E03.9 - Hypothyroidism, unspecified (7) Decubitus ulcer, stage 4 with infection ICD Codes: L89.94 - Pressure ulcer of unspecified site, stage 4 SNOMED: 7176070, 461933195 Status: stable Assessment/Plan wound care/dressing- failed flap x 2 wound care- wet to dry now turn q 2. cont current diabetes rx monitor bs bp rx ivf per cards monitor cbc/cmp iv abx per ID follow up cultures hold dc with fever and tachycardia will cont to monitor pt remains medically stable for lower level of care son wants to take pt home. Subjective ROS Limited/Unobtainable: No Constitutional: Reports: malaise, weakness HEENT: Reports: no symptoms Cardiovascular: Reports: no symptoms Respiratory: Reports: no symptoms Gastrointestinal/Abdominal: Reports: no symptoms Genitourinary: Reports: no symptoms Neurologic/Psychiatric: Reports: pre-existing deficit Endocrine: Reports: no symptoms Hematologic/Lymphatic: Reports: no symptoms Allergies: Coded Allergies: HYDROMORPHONE (Verified Allergy, Unknown, 09/21/14) MORPHINE (Unverified Allergy, Unknown, 04/27/16) All Systems: reviewed and negative except above Subjective events noted. fever better. on iv abx. ?uti. id noted Objective Last 24 Hour Vital Signs Date Time Temp Pulse Resp B/P Pulse Ox O2 Delivery O2 Flow Rate FiO2 07/03/16 12:01 97.7 118 20 118/58 98 Room Air 07/03/16 08:31 103 114/53 07/03/16 08:00 98.1 100 20 114/53 98 Room Air 07/03/16 04:00 97.5 103 18 137/63 99 Room Air 07/03/16 00:00 97.5 102 18 130/67 92 Room Air 07/02/16 20:29 97.9 90 20 120/70 99 Room Air 07/02/16 20:01 102 118/60 07/02/16 16:26 98.1 102 19 118/60 98 Room Air Intake and Output 07/02/16 07/03/16 19:00 07:00 Intake Total 1190.0 ml 855.0 ml Output Total 300 ml 625 ml Balance 890.0 ml 230.0 ml Intake Oral 480 ml 240 ml IV Total 710.0 ml 615.0 ml Output Urine Total 300 ml 625 ml Laboratory Tests 07/03/16 05:05: White Blood Count 15.1H, Red Blood Count 4.42, Hemoglobin 10.8L, Hematocrit 33.9L, Mean Corpuscular Volume 77L, Mean Corpuscular Hemoglobin 24.5L, Mean Corpuscular Hemoglobin Concent 32.0, Red Cell Distribution Width 15.9H, Platelet Count 168, Mean Platelet Volume 10.8H, Neutrophils (%) (Auto) 67.0, Lymphocytes (%) (Auto) 24.5, Monocytes (%) (Auto) 6.5, Eosinophils (%) (Auto) 1.3, Basophils (%) (Auto) 0.8, Sodium Level 144, Potassium Level 3.9, Chloride Level 104, Carbon Dioxide Level 23, Anion Gap 17H, Blood Urea Nitrogen 22, Creatinine 0.7, Estimat Glomerular Filtration Rate , Glucose Level 195H, Calcium Level 9.0 Height (Feet): 5 Height (Inches): 6.00 Weight (Pounds): 150 Objective General Appearance: WD/WN, alert Neck: supple Cardiovascular: regular rhythm Respiratory/Chest: chest wall non-tender, lungs clear, normal breath sounds, no respiratory distress, no accessory muscle use Abdomen: normal bowel sounds, non tender, soft, no organomegaly, no mass Edema: no edema noted Arm (L), no edema noted Arm (R), no edema noted Leg (L), no edema noted Leg (R), no edema noted Pedal (L), no edema noted Pedal (R), no edema noted Generalized Objective bandage over sacrum wound clean and pink. no discharge ISIDORO BYRNE Jul 03, 2016 13:38
[2016-07-03] MEDS ORDERED: Tubing IV Secondary IV ONE (16:03)
[2016-07-03] MEDS ORDERED: 1/2 NS 1000ml IV ONE (16:03)
[2016-07-03] MEDS: Atorvastatin 20mg tab ORAL SCH (22:00)
--- NOTE | 2016-07-04 02:28 | Progress Note ---
DATE: 07/03/2016 CARDIOLOGY PROGRESS NOTE SUBJECTIVE: The patient remains on hypotonic IV fluids. Final urine cultures are pending. OBJECTIVE: VITAL SIGNS: Blood pressure 118/58, pulse 118, respirations 20, and afebrile. LUNGS: Bilateral breath sounds with no wheezing. CARDIAC: Regular rhythm. Rapid rate. Normal S1 and S2. ABDOMEN: Soft. EXTREMITIES: Trace edema. IMPRESSION: 1. Urinary tract infection with sepsis. 2. Sinus tachycardia. 3. Hypovolemia. 4. Dehydration. PLAN: 1. Continue hypotonic IV fluids. 2. Wound care. 3. Antibiotics per Infectious Disease regulatory consultant. 4. Replace electrolytes based on laboratory studies. 5. Hold discharge. Darius Duran M.D. DR: FREDERICK JOB#: [id number] CC:
[2016-07-04 04:00] VITALS: BP 152/92
[2016-07-04] MEDS: Levothyroxine 25mcg tab ORAL SCH (06:26)
[2016-07-04] MEDS: Lactobacillus-GG tablet ORAL SCH ×3 (06:27→21:38)
[2016-07-04] MEDS: Piperacillin/Tazobactam 3.375 GM in D5W 110 ML IVPB SCH ×3 (06:28→21:34)
[2016-07-04] MEDS: NovoLOG Insulin Flexpen SUBQ SCH ×4 (06:36→21:35)
[2016-07-04 08:00] VITALS: BP 136/78
--- NOTE | 2016-07-04 08:33 | General Progress Note ---
Assessment/Plan Problem List: (1) Hyperglycemia ICD Codes: R73.9 - Hyperglycemia SNOMED: 37727246 (2) Altered mental status ICD Codes: R41.82 - Altered mental status SNOMED: 336907768 Qualifiers: Qualified Codes: R41.82 - Altered mental status, unspecified (3) Sepsis ICD Codes: A41.9 - Sepsis SNOMED: 42868447 (4) Altered mental status ICD Codes: R41.82 - Altered mental status, unspecified SNOMED: 346178902 Qualifiers: Qualified Codes: R41.0 - Disorientation, unspecified (5) Stroke ICD Codes: I63.9 - Stroke SNOMED: 389614317 Qualifiers: (6) Hypothyroid ICD Codes: E03.9 - Hypothyroid SNOMED: 08634746 Qualifiers: Qualified Codes: E03.9 - Hypothyroidism, unspecified (7) Decubitus ulcer, stage 4 with infection ICD Codes: L89.94 - Pressure ulcer of unspecified site, stage 4 SNOMED: 1485326, 617437963 Status: stable Assessment/Plan check kub antiemetics ivf laxatives abx per ID wound care Subjective ROS Limited/Unobtainable: No Constitutional: Reports: malaise, weakness HEENT: Reports: no symptoms Cardiovascular: Reports: no symptoms Respiratory: Reports: no symptoms Gastrointestinal/Abdominal: Reports: constipated, vomiting Genitourinary: Reports: no symptoms Neurologic/Psychiatric: Reports: pre-existing deficit Endocrine: Reports: no symptoms Hematologic/Lymphatic: Reports: no symptoms Allergies: Coded Allergies: HYDROMORPHONE (Verified Allergy, Unknown, 09/21/14) MORPHINE (Unverified Allergy, Unknown, 04/27/16) All Systems: reviewed and negative except above Subjective vomited x 1. no bms for several days. hr remains elevated. on abx, on ivf. denies pain Objective Last 24 Hour Vital Signs Date Time Temp Pulse Resp B/P Pulse Ox O2 Delivery O2 Flow Rate FiO2 07/04/16 08:00 98.1 114 20 136/78 98 Room Air 07/04/16 04:00 97.7 113 18 152/92 98 Room Air 07/03/16 23:44 97.7 111 18 147/75 97 Room Air 07/03/16 21:59 116 117/59 07/03/16 20:00 97.7 116 22 117/59 95 Room Air 07/03/16 16:00 98.2 114 22 108/51 92 Room Air 92.0 07/03/16 12:01 97.7 118 20 118/58 98 Room Air 07/03/16 08:31 103 114/53 Intake and Output 07/03/16 07/04/16 19:00 07:00 Intake Total 900.0 ml 730 ml Output Total 175 ml 400 ml Balance 725.0 ml 330 ml Intake Oral 360 ml 580 ml IV Total 540.0 ml 150 ml Output Urine Total 175 ml 400 ml Height (Feet): 5 Height (Inches): 6.00 Weight (Pounds): 150 Objective General Appearance: WD/WN, alert Neck: supple Cardiovascular: regular rhythm Respiratory/Chest: chest wall non-tender, lungs clear, normal breath sounds, no respiratory distress, no accessory muscle use Abdomen: normal bowel sounds, non tender, soft, no organomegaly, no mass Edema: no edema noted Arm (L), no edema noted Arm (R), no edema noted Leg (L), no edema noted Leg (R), no edema noted Pedal (L), no edema noted Pedal (R), no edema noted Generalized Objective bandage over sacrum wound clean and pink. no discharge ISIDORO BYRNE Jul 04, 2016 08:33
[2016-07-04] MEDS: Milk of Magnesia 30ml Ud ORAL PRN (08:46)
[2016-07-04] MEDS: metFORMIN 500mg tab ORAL SCH ×2 (08:46→17:54)
[2016-07-04] MEDS: levETIRAcetam 500mg/5ml Liquid NG SCH ×2 (08:46→21:34)
[2016-07-04] MEDS: Lisinopril 20mg tab ORAL SCH (08:46)
[2016-07-04] MEDS: Memantine 10mg tab ORAL SCH (08:46)
[2016-07-04] MEDS: ANAGRELIDE 0.5 MG ORAL SCH ×2 (08:46→17:54)
[2016-07-04] MEDS: Docusate 250mg cap ORAL SCH ×2 (08:47→17:54)
[2016-07-04] MEDS: Heparin 5000 units/ml inj SUBQ SCH ×2 (08:47→21:36)
[2016-07-04] MEDS: Dakin's 0.5% (Full Strength) 16oz TOPIC SCH (08:48)
[2016-07-04 10:23] LABS: EOSINOPHILS % (AUTO) 1.1 % (0.0-3.0); LYMPHOCYTES % (AUTO) 20.5 % (20.0-45.0); MEAN CORPUSCULAR HGB CONC 31.2 G/DL (32.0-36.0); MEAN CORPUSCULAR VOLUME 77 FL (80-99); MEAN PLATELET VOLUME 13.7 FL (6.5-10.1); MONOCYTES % (AUTO) 4.5 % (1.0-10.0); NEUTROPHILS % (AUTO) 72.9 % (45.0-75.0); PLATELET COUNT 158 K/UL (150-450); RED BLOOD COUNT 4.36 M/UL (4.20-5.40); RED CELL DISTRIBUTION WIDTH 15.6 % (11.6-14.8); WHITE BLOOD COUNT 15.7 K/UL (4.8-10.8)
[2016-07-04 10:32] LABS: ALANINE AMINOTRANSFERASE 5 U/L (3-33); ALBUMIN/GLOBULIN RATIO 0.7 (1.0-2.7); ANION GAP 18 (5-15); ASPARTATE AMINO TRANSFERASE 9 U/L (5-40); CALCIUM 9.1 mg/dL (8.6-10.2); CARBON DIOXIDE 22 mEQ/L (20-30); CHLORIDE 105 mEQ/L (98-107); CREATININE 0.7 mg/dL (0.5-0.9); HEMOLYSIS 2; MAGNESIUM 1.7 mg/dL (1.7-2.5); POTASSIUM 4.2 mEQ/L (3.4-4.9); SODIUM 145 mEQ/L (135-145); TOTAL PROTEIN 6.6 g/dL (6.6-8.7)
[2016-07-04 11:08] LABS: THYROID STIMULATING HORMONE 0.892 uIU/mL (0.300-4.500)
[2016-07-04 12:00] VITALS: BP 125/60
--- NOTE | 2016-07-04 12:40 | Diagnostic Imaging Report ---
Indication: Vomiting, abdominal pain Technique: Supine view of the abdomen Comparison: 01/23/2008 Findings: Interim placement of an inferior vena cava filter. There is considerable rectal distention with feces. There is considerable stool throughout the transverse colon. A Patel catheter is present. The stomach is distended with gas. The remainder of the bowel gas pattern appears unremarkable. Impression: Evidence of rectal fecal impaction and constipation Gaseous distention of the stomach, etiology/significance uncertain Other findings as noted, including Patel catheter and inferior vena cava filter
[2016-07-04 16:00] VITALS: BP 120/65
[2016-07-04 20:00] VITALS: BP 125/67
[2016-07-04] MEDS: Atorvastatin 20mg tab ORAL SCH (21:34)
[2016-07-05] VITALS: BP 139/74
--- NOTE | 2016-07-05 00:18 | Progress Note ---
DATE: 07/04/2016 CARDIOLOGY PROGRESS NOTE SUBJECTIVE: The patient without distress. Remains withdrawn. However, at times, has been having some nausea and vomiting. She remains constipated. OBJECTIVE: VITAL SIGNS: Blood pressure 136/78, pulse 114, and respiratory rate 20. No fevers. Room air oxygen saturations at 98%. HEENT: Oropharynx clear. NECK: Supple. LUNGS: With good breath sounds. No wheezes. CARDIAC: Regular rhythm and rate. Normal S1 and S2 with a fourth heart sound. ABDOMEN: Slightly distended, but soft. No guarding or rebound. EXTREMITIES: No edema. Wound site on the sacrum intact. LABORATORY AND DIAGNOSTIC DATA: White count 15.7 and hemoglobin 10.5. Potassium 4.2, BUN 29, and creatinine 0.7. Platelet count is 158,000. Abdominal x-ray reveals fecal impaction. IMPRESSION: 1. Essential thrombocytosis with lower platelet count. 2. Leukocytosis. 3. Polymicrobial urinary infection. 4. Sepsis. 5. Secondary sinus tachycardia. 6. Moderate protein-calorie malnutrition. 7. Cerebrovascular disease with dementia. 8. Constipation. PLAN: 1. Decrease dose of anagrelide, done last night. 2. IV antibiotics. 3. Follow up culture results. 4. DVT prophylaxis. 5. Wound care. 6. Insulin coverage by sliding scale. 7. IV fluid hydration. 8. Protein supplement. 9. Bowel regimen. Darius Duran M.D. DR: YOGESH JOB#: [id number] CC:
[2016-07-05 04:00] VITALS: BP 150/84
[2016-07-05] MEDS: Piperacillin/Tazobactam 3.375 GM in D5W 110 ML IVPB SCH ×3 (05:10→21:32)
[2016-07-05] MEDS: Levothyroxine 25mcg tab ORAL SCH (05:42)
[2016-07-05] MEDS: Lactobacillus-GG tablet ORAL SCH ×3 (05:42→21:32)
[2016-07-05] MEDS: NovoLOG Insulin Flexpen SUBQ SCH ×4 (06:17→20:37)
[2016-07-05 08:00] VITALS: BP 119/72
[2016-07-05] MEDS: Heparin 5000 units/ml inj SUBQ SCH ×2 (09:53→20:37)
[2016-07-05] MEDS: Docusate 250mg cap ORAL SCH ×2 (09:54→17:34)
[2016-07-05] MEDS: ANAGRELIDE 0.5 MG ORAL SCH ×2 (09:54→17:34)
[2016-07-05] MEDS: metFORMIN 500mg tab ORAL SCH ×2 (09:54→17:34)
[2016-07-05] MEDS: Lisinopril 20mg tab ORAL SCH (09:55)
[2016-07-05] MEDS: Milk of Magnesia 30ml Ud ORAL PRN (09:55)
[2016-07-05] MEDS: Memantine 10mg tab ORAL SCH (09:55)
[2016-07-05] MEDS: levETIRAcetam 500mg/5ml Liquid NG SCH ×2 (10:00→20:35)
[2016-07-05] MEDS: Dakin's 0.5% (Full Strength) 16oz TOPIC SCH (10:01)
[2016-07-05 12:00] VITALS: BP 122/69
[2016-07-05] MEDS ORDERED: Fleet's Enema 133ml RECTAL PRN (12:30)
--- NOTE | 2016-07-05 13:46 | General Progress Note ---
Assessment/Plan Problem List: (1) Hyperglycemia ICD Codes: R73.9 - Hyperglycemia SNOMED: 92826151 (2) Altered mental status ICD Codes: R41.82 - Altered mental status SNOMED: 670534975 Qualifiers: Qualified Codes: R41.82 - Altered mental status, unspecified (3) Sepsis ICD Codes: A41.9 - Sepsis SNOMED: 82381361 (4) Altered mental status ICD Codes: R41.82 - Altered mental status, unspecified SNOMED: 049246705 Qualifiers: Qualified Codes: R41.0 - Disorientation, unspecified (5) Stroke ICD Codes: I63.9 - Stroke SNOMED: 619680473 Qualifiers: (6) Hypothyroid ICD Codes: E03.9 - Hypothyroid SNOMED: 34850340 Qualifiers: Qualified Codes: E03.9 - Hypothyroidism, unspecified (7) Decubitus ulcer, stage 4 with infection ICD Codes: L89.94 - Pressure ulcer of unspecified site, stage 4 SNOMED: 2833405, 818041391 Status: stable Assessment/Plan kub with fecal impaction antiemetics ivf laxatives/enemas as needed abx per ID wound care Subjective ROS Limited/Unobtainable: No Constitutional: Reports: malaise, weakness HEENT: Reports: no symptoms Cardiovascular: Reports: no symptoms Respiratory: Reports: no symptoms Gastrointestinal/Abdominal: Reports: no symptoms Genitourinary: Reports: no symptoms Neurologic/Psychiatric: Reports: pre-existing deficit Endocrine: Reports: no symptoms Hematologic/Lymphatic: Reports: no symptoms Allergies: Coded Allergies: HYDROMORPHONE (Verified Allergy, Unknown, 09/21/14) MORPHINE (Unverified Allergy, Unknown, 04/27/16) All Systems: reviewed and negative except above Subjective no events. constipated. no BMs for several days. on iv abx. Objective Last 24 Hour Vital Signs Date Time Temp Pulse Resp B/P Pulse Ox O2 Delivery O2 Flow Rate FiO2 07/05/16 12:00 97.6 115 20 122/69 100 Room Air 07/05/16 10:11 85 119/72 07/05/16 09:55 119/72 07/05/16 08:00 97.6 85 18 119/72 99 Room Air 07/05/16 04:00 98.1 123 18 150/84 98 Room Air 07/05/16 00:00 97.6 121 18 139/74 99 Room Air 07/04/16 21:34 115 125/67 07/04/16 20:00 96.6 115 22 125/67 97 Room Air 07/04/16 16:00 96.6 115 22 120/65 97 Room Air Intake and Output 07/04/16 07/05/16 19:00 07:00 Intake Total 1397.5 ml 1902.5 ml Output Total 450 ml 675 ml Balance 947.5 ml 1227.5 ml Intake Oral 360 ml 1200 ml IV Total 1037.5 ml 702.5 ml Output Urine Total 450 ml 675 ml Height (Feet): 5 Height (Inches): 6.00 Weight (Pounds): 150 Objective General Appearance: WD/WN, alert Neck: supple Cardiovascular: regular rhythm Respiratory/Chest: chest wall non-tender, lungs clear, normal breath sounds, no respiratory distress, no accessory muscle use Abdomen: normal bowel sounds, non tender, soft, no organomegaly, no mass Edema: no edema noted Arm (L), no edema noted Arm (R), no edema noted Leg (L), no edema noted Leg (R), no edema noted Pedal (L), no edema noted Pedal (R), no edema noted Generalized Objective bandage over sacrum wound clean and pink. no discharge ISIDORO BYRNE Jul 05, 2016 13:46
[2016-07-05 16:00] VITALS: BP 128/78
--- NOTE | 2016-07-05 17:08 | Infectious Diseases Prog Note ---
Assessment/Plan Assessment/Plan A; Complicated UTI Leukocytosis DM HPN MRSA & VRE colonization Pressure ulcer Fecal impaction P: Continue Zosyn X 2 days Repeat CXR Subjective ROS Limited/Unobtainable: Yes Respiratory: Reports: dry cough Allergies: Coded Allergies: HYDROMORPHONE (Verified Allergy, Unknown, 09/21/14) MORPHINE (Unverified Allergy, Unknown, 04/27/16) Objective Vital Signs Last 24 Hour Vital Signs Date Time Temp Pulse Resp B/P Pulse Ox O2 Delivery O2 Flow Rate FiO2 07/05/16 12:00 97.6 115 20 122/69 100 Room Air 07/05/16 10:11 85 119/72 07/05/16 09:55 119/72 07/05/16 08:00 97.6 85 18 119/72 99 Room Air 07/05/16 04:00 98.1 123 18 150/84 98 Room Air 07/05/16 00:00 97.6 121 18 139/74 99 Room Air 07/04/16 21:34 115 125/67 07/04/16 20:00 96.6 115 22 125/67 97 Room Air Height (Feet): 5 Height (Inches): 6.00 Weight (Pounds): 150 General Appearance: no acute distress HEENT: mucous membranes moist Respiratory/Chest: rhonchi - bilaterally Cardiovascular: tachycardia Abdomen: soft, non tender Extremities: no edema Skin: ulcers Neurologic/Psychiatric: alert, responsive Current Medications Medications (Trade) Dose Ordered Sig/Rupert Route PRN Reason Start Time Stop Time Status Last Admin Dose Admin Acetaminophen (Tylenol) 500 mg Q6H PRN ORAL Mild Pain/Temp > 100.5 05/30/16 20:15 07/25/16 20:14 07/01/16 12:08 Amlodipine Besylate (Norvasc) 5 mg Q12HR ORAL 04/27/16 21:00 07/25/16 20:59 07/05/16 10:11 Anagrelide HCl (Agrylin) 0.5 mg BID ORAL 07/04/16 09:00 08/03/16 08:59 07/05/16 09:54 Atorvastatin Calcium (Lipitor) 20 mg BEDTIME ORAL 04/27/16 21:00 07/25/16 20:59 07/04/16 21:34 Clonidine HCl (Catapres) 0.1 mg Q4H PRN ORAL For High Blood Pressure 06/19/16 14:30 07/19/16 14:29 06/19/16 14:50 Docusate Sodium (Colace) 250 mg BID ORAL 07/04/16 09:00 08/03/16 08:59 07/05/16 09:54 Ferrous Sulfate (Feosol) 325 mg THREE TIMES A DAY ORAL 04/28/16 09:00 07/25/16 08:59 07/05/16 12:19 Heparin Sodium (Porcine) (Heparin 5000 units/ml) 5,000 units EVERY 12 HOURS SUBQ 04/27/16 21:00 07/25/16 20:59 07/05/16 09:53 Insulin Aspart (NovoLOG) BEFORE MEALS AND HS SUBQ 04/27/16 21:00 07/25/16 20:59 07/05/16 16:35 Lactobacillus Acidophilus (Culturelle) 1 tab Q8HR ORAL 04/27/16 22:00 07/25/16 21:59 07/05/16 13:55 Levetiracetam 500 mg 500 mg Q12HR NG 06/24/16 09:00 07/24/16 08:59 07/05/16 10:00 Levothyroxine Sodium (Synthroid) 25 mcg DAILY@0630 ORAL 05/01/16 06:30 07/25/16 06:29 07/05/16 05:42 Levothyroxine Sodium (Synthroid) 150 mcg DAILY@0630 ORAL 05/01/16 06:30 07/25/16 06:29 07/05/16 05:42 Lisinopril (Prinivil) 40 mg DAILY ORAL 05/02/16 09:00 07/25/16 08:59 07/05/16 09:55 Magnesium Hydroxide (Mom) 30 ml DAILYPRN PRN ORAL Constipation 07/04/16 08:45 08/03/16 08:44 07/05/16 09:55 Memantine (Namenda) 10 mg DAILY ORAL 04/28/16 09:00 07/25/16 08:59 07/05/16 09:55 Metformin HCl (Glucophage) 1,000 mg BID ORAL 04/28/16 09:00 07/25/16 08:59 07/05/16 09:54 Piperacillin Sod/ Tazobactam Sod/ Dextrose (Zosyn/D5W) 110 ml @ 27.5 mls/hr EVERY 8 HOURS IVPB 07/01/16 10:30 07/06/16 10:29 07/05/16 13:54 Sodium Hypochlorite (Dakin's Full Strength) 1 applic DAILY TOPIC 05/29/16 16:00 07/25/16 15:59 07/05/16 10:01 Sodium Chloride 1,000 ml @ 75 mls/hr [id number] IV 06/30/16 15:30 07/30/16 15:29 07/05/16 15:18 Sodium Phosphate (Fleet's Sodium Phosl Enema) 133 ml DAILYPRN PRN RECTAL constipation 07/05/16 12:30 08/04/16 12:29 07/05/16 13:52 EFRAIN GARCIA Jul 05, 2016 17:08
[2016-07-05 19:00] VITALS: BP 126/77
[2016-07-05] MEDS: Atorvastatin 20mg tab ORAL SCH (20:36)
[2016-07-06] VITALS: BP 140/74
[2016-07-06 03:26] VITALS: BP 154/80
[2016-07-06] MEDS: Piperacillin/Tazobactam 3.375 GM in D5W 110 ML IVPB SCH ×3 (04:56→20:54)
[2016-07-06] MEDS: Lactobacillus-GG tablet ORAL SCH ×3 (05:44→21:29)
[2016-07-06] MEDS: Levothyroxine 25mcg tab ORAL SCH (05:45)
[2016-07-06] MEDS: NovoLOG Insulin Flexpen SUBQ SCH ×4 (06:20→20:58)
[2016-07-06 08:00] VITALS: BP 117/67
--- NOTE | 2016-07-06 08:00 | General Progress Note ---
Assessment/Plan Problem List: (1) Hyperglycemia ICD Codes: R73.9 - Hyperglycemia SNOMED: 89628449 (2) Altered mental status ICD Codes: R41.82 - Altered mental status SNOMED: 248785490 Qualifiers: Qualified Codes: R41.82 - Altered mental status, unspecified (3) Sepsis ICD Codes: A41.9 - Sepsis SNOMED: 21870686 (4) Altered mental status ICD Codes: R41.82 - Altered mental status, unspecified SNOMED: 905517562 Qualifiers: Qualified Codes: R41.0 - Disorientation, unspecified (5) Stroke ICD Codes: I63.9 - Stroke SNOMED: 830022486 Qualifiers: (6) Hypothyroid ICD Codes: E03.9 - Hypothyroid SNOMED: 64711299 Qualifiers: Qualified Codes: E03.9 - Hypothyroidism, unspecified (7) Decubitus ulcer, stage 4 with infection ICD Codes: L89.94 - Pressure ulcer of unspecified site, stage 4 SNOMED: 8616959, 703717631 Status: stable, progressing Assessment/Plan antiemetics ivf monitor HR laxatives/enemas as needed abx per ID wound care Subjective ROS Limited/Unobtainable: No Constitutional: Reports: malaise, weakness HEENT: Reports: no symptoms Cardiovascular: Reports: no symptoms Respiratory: Reports: no symptoms Gastrointestinal/Abdominal: Reports: no symptoms Genitourinary: Reports: no symptoms Neurologic/Psychiatric: Reports: pre-existing deficit Endocrine: Reports: no symptoms Hematologic/Lymphatic: Reports: no symptoms Allergies: Coded Allergies: HYDROMORPHONE (Verified Allergy, Unknown, 09/21/14) MORPHINE (Unverified Allergy, Unknown, 04/27/16) All Systems: reviewed and negative except above Subjective no events. resting. no overnite events. on iv abx for uti Objective Last 24 Hour Vital Signs Date Time Temp Pulse Resp B/P Pulse Ox O2 Delivery O2 Flow Rate FiO2 07/06/16 03:26 97.7 108 18 154/80 93 Room Air 07/06/16 00:00 97.5 107 18 140/74 95 Room Air 07/05/16 20:36 125 128/78 07/05/16 19:00 96.4 114 20 126/77 96 Room Air 07/05/16 16:00 96.8 125 20 128/78 96 Room Air 07/05/16 12:00 97.6 115 20 122/69 100 Room Air 07/05/16 10:11 85 119/72 07/05/16 09:55 119/72 07/05/16 08:00 97.6 85 18 119/72 99 Room Air Intake and Output 07/05/16 07/06/16 19:00 07:00 Intake Total 540 ml 397.5 ml Output Total 200 ml 450 ml Balance 340 ml -52.5 ml Intake Oral 240 ml 220 ml IV Total 300 ml 177.5 ml Output Urine Total 200 ml 450 ml # Bowel Movements 1 1 Height (Feet): 5 Height (Inches): 6.00 Weight (Pounds): 150 Objective General Appearance: WD/WN, alert Neck: supple Cardiovascular: regular rhythm Respiratory/Chest: chest wall non-tender, lungs clear, normal breath sounds, no respiratory distress, no accessory muscle use Abdomen: normal bowel sounds, non tender, soft, no organomegaly, no mass Edema: no edema noted Arm (L), no edema noted Arm (R), no edema noted Leg (L), no edema noted Leg (R), no edema noted Pedal (L), no edema noted Pedal (R), no edema noted Generalized Objective bandage over sacrum wound clean and pink. no discharge ISIDORO BYRNE Jul 06, 2016 08:00
--- NOTE | 2016-07-06 09:44 | Infectious Diseases Prog Note ---
Assessment/Plan Assessment/Plan A; Complicated UTI Leukocytosis DM HPN MRSA & VRE colonization Pressure ulcer Fecal impaction P: Continue Zosyn X 1 days Follow CBC Subjective ROS Limited/Unobtainable: Yes Allergies: Coded Allergies: HYDROMORPHONE (Verified Allergy, Unknown, 09/21/14) MORPHINE (Unverified Allergy, Unknown, 04/27/16) Objective Vital Signs Last 24 Hour Vital Signs Date Time Temp Pulse Resp B/P Pulse Ox O2 Delivery O2 Flow Rate FiO2 07/06/16 08:00 97.9 100 20 117/67 95 Room Air 07/06/16 03:26 97.7 108 18 154/80 93 Room Air 07/06/16 00:00 97.5 107 18 140/74 95 Room Air 07/05/16 20:36 125 128/78 07/05/16 19:00 96.4 114 20 126/77 96 Room Air 07/05/16 16:00 96.8 125 20 128/78 96 Room Air 07/05/16 12:00 97.6 115 20 122/69 100 Room Air 07/05/16 10:11 85 119/72 07/05/16 09:55 119/72 Height (Feet): 5 Height (Inches): 6.00 Weight (Pounds): 150 General Appearance: no acute distress Respiratory/Chest: lungs clear Cardiovascular: normal rate Abdomen: soft, non tender Genitourinary: other - Patel catheter Skin: ulcers Neurologic/Psychiatric: other - sleeping Current Medications Medications (Trade) Dose Ordered Sig/Rupert Route PRN Reason Start Time Stop Time Status Last Admin Dose Admin Acetaminophen (Tylenol) 500 mg Q6H PRN ORAL Mild Pain/Temp > 100.5 05/30/16 20:15 07/25/16 20:14 07/01/16 12:08 Amlodipine Besylate (Norvasc) 5 mg Q12HR ORAL 04/27/16 21:00 07/25/16 20:59 07/05/16 20:36 Anagrelide HCl (Agrylin) 0.5 mg BID ORAL 07/04/16 09:00 08/03/16 08:59 07/05/16 17:34 Atorvastatin Calcium (Lipitor) 20 mg BEDTIME ORAL 04/27/16 21:00 07/25/16 20:59 07/05/16 20:36 Clonidine HCl (Catapres) 0.1 mg Q4H PRN ORAL For High Blood Pressure 06/19/16 14:30 07/19/16 14:29 06/19/16 14:50 Docusate Sodium (Colace) 250 mg BID ORAL 07/04/16 09:00 08/03/16 08:59 07/05/16 17:34 Ferrous Sulfate (Feosol) 325 mg THREE TIMES A DAY ORAL 04/28/16 09:00 07/25/16 08:59 07/05/16 17:33 Heparin Sodium (Porcine) (Heparin 5000 units/ml) 5,000 units EVERY 12 HOURS SUBQ 04/27/16 21:00 07/25/16 20:59 07/05/16 20:37 Insulin Aspart (NovoLOG) BEFORE MEALS AND HS SUBQ 04/27/16 21:00 07/25/16 20:59 07/06/16 06:20 Lactobacillus Acidophilus (Culturelle) 1 tab Q8HR ORAL 04/27/16 22:00 07/25/16 21:59 07/06/16 05:44 Levetiracetam 500 mg 500 mg Q12HR NG 06/24/16 09:00 07/24/16 08:59 07/05/16 20:35 Levothyroxine Sodium (Synthroid) 25 mcg DAILY@0630 ORAL 05/01/16 06:30 07/25/16 06:29 07/06/16 05:45 Levothyroxine Sodium (Synthroid) 150 mcg DAILY@0630 ORAL 05/01/16 06:30 07/25/16 06:29 07/06/16 05:45 Lisinopril (Prinivil) 40 mg DAILY ORAL 05/02/16 09:00 07/25/16 08:59 07/05/16 09:55 Magnesium Hydroxide (Mom) 30 ml DAILYPRN PRN ORAL Constipation 07/04/16 08:45 08/03/16 08:44 07/05/16 09:55 Memantine (Namenda) 10 mg DAILY ORAL 04/28/16 09:00 07/25/16 08:59 07/05/16 09:55 Metformin HCl (Glucophage) 1,000 mg BID ORAL 04/28/16 09:00 07/25/16 08:59 07/05/16 17:34 Piperacillin Sod/ Tazobactam Sod/ Dextrose (Zosyn/D5W) 110 ml @ 27.5 mls/hr EVERY 8 HOURS IVPB 07/01/16 10:30 07/07/16 23:59 07/06/16 04:56 Sodium Hypochlorite (Dakin's Full Strength) 1 applic DAILY TOPIC 05/29/16 16:00 07/25/16 15:59 07/05/16 10:01 Sodium Chloride 1,000 ml @ 75 mls/hr [id number] IV 06/30/16 15:30 07/30/16 15:29 07/06/16 04:56 Sodium Phosphate (Fleet's Sodium Phosl Enema) 133 ml DAILYPRN PRN RECTAL constipation 07/05/16 12:30 08/04/16 12:29 07/05/16 13:52 EFRAIN GARCIA Jul 06, 2016 09:44
[2016-07-06] MEDS: ANAGRELIDE 0.5 MG ORAL SCH ×2 (10:44→17:04)
[2016-07-06] MEDS: metFORMIN 500mg tab ORAL SCH ×2 (10:44→17:04)
[2016-07-06] MEDS: Docusate 250mg cap ORAL SCH ×2 (10:44→17:04)
[2016-07-06] MEDS: Lisinopril 20mg tab ORAL SCH (10:45)
[2016-07-06] MEDS: levETIRAcetam 500mg/5ml Liquid NG SCH ×2 (10:47→20:18)
[2016-07-06] MEDS: Memantine 10mg tab ORAL SCH (10:49)
[2016-07-06] MEDS: Heparin 5000 units/ml inj SUBQ SCH ×2 (10:51→20:21)
[2016-07-06] MEDS: Dakin's 0.5% (Full Strength) 16oz TOPIC SCH (10:52)
--- NOTE | 2016-07-06 10:53 | Diagnostic Imaging Report ---
Indication: COUGH Technique: One view of the chest Comparison: 05/31/2016 Findings: There is suggestion of a band of atelectasis extending from the right hilar region. Lungs and pleural spaces are otherwise clear. Heart size is normal. Impression: Right perihilar atelectasis. No acute process otherwise
[2016-07-06 12:00] VITALS: BP 130/59
[2016-07-06] MEDS ORDERED: 1/2 NS 1000ml IV ONE (15:02)
[2016-07-06] MEDS ORDERED: NS 275ml ONE (15:02)
[2016-07-06 16:00] VITALS: BP 126/67
[2016-07-06 20:00] VITALS: BP 116/56
[2016-07-06] MEDS: Atorvastatin 20mg tab ORAL SCH (20:18)
[2016-07-06] MEDS ORDERED: guaiFENesin DM 100mg/5ml ORAL PRN (23:15)
[2016-07-07] VITALS: BP 121/64
[2016-07-07] MEDS: DuoNeb 0.5-3(2.5)mg/3ml neb HHN SCH ×6 (03:00→23:00)
[2016-07-07 04:00] VITALS: BP 154/87
[2016-07-07] MEDS: Piperacillin/Tazobactam 3.375 GM in D5W 110 ML IVPB SCH (05:47)
[2016-07-07] MEDS: NovoLOG Insulin Flexpen SUBQ SCH ×4 (05:48→20:54)
[2016-07-07] MEDS: Levothyroxine 25mcg tab ORAL SCH (05:49)
[2016-07-07] MEDS: Lactobacillus-GG tablet ORAL SCH ×3 (05:49→22:15)
[2016-07-07 07:33] LABS: MEAN CORPUSCULAR HEMOGLOBIN 24.4 PG (27.0-31.0); MEAN CORPUSCULAR VOLUME 79 FL (80-99); MEAN PLATELET VOLUME 13.7 FL (6.5-10.1); PLATELET COUNT 151 K/UL (150-450); RED BLOOD COUNT 3.19 M/UL (4.20-5.40); RED CELL DISTRIBUTION WIDTH 16.2 % (11.6-14.8); WHITE BLOOD COUNT 17.3 K/UL (4.8-10.8)
[2016-07-07 08:00] VITALS: BP 126/58
--- NOTE | 2016-07-07 08:07 | General Progress Note ---
Assessment/Plan Problem List: (1) Hyperglycemia ICD Codes: R73.9 - Hyperglycemia SNOMED: 72823747 (2) Altered mental status ICD Codes: R41.82 - Altered mental status SNOMED: 861363064 Qualifiers: Qualified Codes: R41.82 - Altered mental status, unspecified (3) Sepsis ICD Codes: A41.9 - Sepsis SNOMED: 24651160 (4) Altered mental status ICD Codes: R41.82 - Altered mental status, unspecified SNOMED: 364447989 Qualifiers: Qualified Codes: R41.0 - Disorientation, unspecified (5) Stroke ICD Codes: I63.9 - Stroke SNOMED: 872663861 Qualifiers: (6) Hypothyroid ICD Codes: E03.9 - Hypothyroid SNOMED: 00533893 Qualifiers: Qualified Codes: E03.9 - Hypothyroidism, unspecified (7) Decubitus ulcer, stage 4 with infection ICD Codes: L89.94 - Pressure ulcer of unspecified site, stage 4 SNOMED: 4732504, 134633760 Status: stable, progressing Assessment/Plan antiemetics ivf monitor HR laxatives/enemas as needed abx per ID wound care repeat cbc ordered. may need transfusion Subjective ROS Limited/Unobtainable: Yes Constitutional: Reports: weakness HEENT: Reports: no symptoms Cardiovascular: Reports: no symptoms Respiratory: Reports: no symptoms Gastrointestinal/Abdominal: Reports: no symptoms Genitourinary: Reports: no symptoms Neurologic/Psychiatric: Reports: pre-existing deficit Endocrine: Reports: no symptoms Hematologic/Lymphatic: Reports: no symptoms Allergies: Coded Allergies: HYDROMORPHONE (Verified Allergy, Unknown, 09/21/14) MORPHINE (Unverified Allergy, Unknown, 04/27/16) Subjective no events. resting. no overnite events. on iv abx for uti. decrease h/h noted. no signs of bleeding Objective Last 24 Hour Vital Signs Date Time Temp Pulse Resp B/P Pulse Ox O2 Delivery O2 Flow Rate FiO2 07/07/16 07:47 87 16 100 Room Air 21 07/07/16 07:37 89 16 100 Room Air 07/07/16 04:00 97.5 111 18 154/87 95 Room Air 07/07/16 03:04 Room Air 07/07/16 03:02 107 14 95 Room Air 07/07/16 00:17 116 24 Room Air 07/07/16 00:00 97.2 107 18 121/64 92 Room Air 07/06/16 20:18 105 126/67 07/06/16 20:00 96.6 116 22 116/56 95 Room Air 07/06/16 16:00 96.3 105 22 126/67 96 Room Air 07/06/16 12:00 97.7 101 20 130/59 96 Room Air 07/06/16 10:49 100 117/67 07/06/16 10:45 117/67 Intake and Output 07/06/16 07/07/16 19:00 07:00 Intake Total 177.5 ml 600 ml Output Total 300 ml Balance 177.5 ml 300 ml Intake Oral 600 ml IV Total 177.5 ml Output Urine Total 300 ml Laboratory Tests 07/07/16 05:50: White Blood Count 17.3H, Red Blood Count 3.19L, Hemoglobin 7.8L, Hematocrit 25.1L, Mean Corpuscular Volume 79L, Mean Corpuscular Hemoglobin 24.4L, Mean Corpuscular Hemoglobin Concent 31.0L, Red Cell Distribution Width 16.2H, Platelet Count 151, Mean Platelet Volume 13.7H, Neutrophils (%) (Auto) , Lymphocytes (%) (Auto) , Monocytes (%) (Auto) , Eosinophils (%) (Auto) , Basophils (%) (Auto) , Neutrophils % (Manual) [Pending], Lymphocytes % (Manual) [Pending], Platelet Estimate [Pending], Platelet Morphology [Pending] Height (Feet): 5 Height (Inches): 6.00 Weight (Pounds): 150 Objective General Appearance: WD/WN, alert Neck: supple Cardiovascular: regular rhythm Respiratory/Chest: chest wall non-tender, lungs clear, normal breath sounds, no respiratory distress, no accessory muscle use Abdomen: normal bowel sounds, non tender, soft, no organomegaly, no mass Edema: no edema noted Arm (L), no edema noted Arm (R), no edema noted Leg (L), no edema noted Leg (R), no edema noted Pedal (L), no edema noted Pedal (R), no edema noted Generalized Objective bandage over sacrum wound clean and pink. no discharge ISIDORO BYRNE Jul 07, 2016 08:07
[2016-07-07] MEDS: Lisinopril 20mg tab ORAL SCH (08:30)
[2016-07-07] MEDS: ANAGRELIDE 0.5 MG ORAL SCH ×2 (08:30→18:38)
[2016-07-07] MEDS: metFORMIN 500mg tab ORAL SCH ×2 (08:31→18:37)
[2016-07-07] MEDS: Docusate 250mg cap ORAL SCH ×2 (08:31→18:38)
[2016-07-07] MEDS: Memantine 10mg tab ORAL SCH (08:31)
[2016-07-07] MEDS: levETIRAcetam 500mg/5ml Liquid NG SCH ×2 (08:32→20:26)
[2016-07-07] MEDS: Heparin 5000 units/ml inj SUBQ SCH ×2 (08:34→20:27)
[2016-07-07] MEDS: Dakin's 0.5% (Full Strength) 16oz TOPIC SCH (08:35)
[2016-07-07 10:52] LABS: ANISOCYTOSIS 1+; BAND NEUTROPHILS % (MANUAL) 0 % (0-8); BASOPHILS % (MANUAL) 0 % (0-2); EOSINOPHILS % (MANUAL) 2 % (0-3); HYPOCHROMASIA 1+; LYMPHOCYTES % (MANUAL) 18 % (20-45); NEUTROPHILS % (MANUAL) 71 % (45-75); PLATELET ESTIMATE ADEQUATE; PLATELET MORPHOLOGY NORMAL; TOTAL CELLS COUNTED 100
--- NOTE | 2016-07-07 11:05 | Infectious Diseases Prog Note ---
"Assessment/Plan Assessment/Plan antibiotics : zosyn, A 1. 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 CVA 5. DM 6. HTN 7. e.coli | pseudomonas UTI s/p rx 8. fever improving 9. leucocytosis increased P 1. d/c zosyn 2. stool for c.diff 3. UA and urine culture 4. will follow up cultures Subjective ROS Limited/Unobtainable: Yes Allergies: Coded Allergies: HYDROMORPHONE (Verified Allergy, Unknown, 09/21/14) MORPHINE (Unverified Allergy, Unknown, 04/27/16) Objective Vital Signs Last 24 Hour Vital Signs Date Time Temp Pulse Resp B/P Pulse Ox O2 Delivery O2 Flow Rate FiO2 07/07/16 08:31 87 154/87 07/07/16 08:30 154/87 07/07/16 08:00 97.5 101 20 126/58 97 Room Air 07/07/16 07:47 87 16 100 Room Air 21 07/07/16 07:37 89 16 100 Room Air 07/07/16 04:00 97.5 111 18 154/87 95 Room Air 07/07/16 03:04 Room Air 07/07/16 03:02 107 14 95 Room Air 07/07/16 00:17 116 24 Room Air 07/07/16 00:00 97.2 107 18 121/64 92 Room Air 07/06/16 20:18 105 126/67 07/06/16 20:00 96.6 116 22 116/56 95 Room Air 07/06/16 16:00 96.3 105 22 126/67 96 Room Air 07/06/16 12:00 97.7 101 20 130/59 96 Room Air Height (Feet): 5 Height (Inches): 6.00 Weight (Pounds): 150 Respiratory/Chest: lungs clear Cardiovascular: normal rate, regular rhythm, no gallop/murmur Abdomen: soft, non tender Extremities: no edema Laboratory Tests Test 07/07/16 05:50 White Blood Count 17.3 K/UL (4.8-10.8) H Red Blood Count 3.19 M/UL (4.20-5.40) L Hemoglobin 7.8 G/DL (12.0-16.0) L Hematocrit 25.1 % (37.0-47.0) L Mean Corpuscular Volume 79 FL (80-99) L Mean Corpuscular Hemoglobin 24.4 PG (27.0-31.0) L Mean Corpuscular Hemoglobin Concent 31.0 G/DL (32.0-36.0) L Red Cell Distribution Width 16.2 % (11.6-14.8) H Platelet Count 151 K/UL (150-450) Mean Platelet Volume 13.7 FL (6.5-10.1) H Neutrophils (%) (Auto) % (45.0-75.0) Lymphocytes (%) (Auto) % (20.0-45.0) Monocytes (%) (Auto) % (1.0-10.0) Eosinophils (%) (Auto) % (0.0-3.0) Basophils (%) (Auto) % (0.0-2.0) Differential Total Cells Counted 100 Neutrophils % (Manual) 71 % (45-75) Lymphocytes % (Manual) 18 % (20-45) L Monocytes % (Manual) 9 % (1-10) Eosinophils % (Manual) 2 % (0-3) Basophils % (Manual) 0 % (0-2) Band Neutrophils 0 % (0-8) Platelet Estimate Adequate Platelet Morphology Normal Hypochromasia 1+ Anisocytosis 1+ ALESSIO KRISHNAMURTHY Jul 07, 2016 11:05"
[2016-07-07] MEDS: Milk of Magnesia 30ml Ud ORAL PRN (11:57)
--- NOTE | 2016-07-07 11:58 | Diagnostic Imaging Report ---
Indication: COUGH Technique: One view of the chest Comparison: 07/06/2016 Findings: Inspiration is suboptimal, with crowding of the vascular markings, particularly midlung. Lungs and pleural spaces are otherwise clear. Heart size is normal. The aorta is tortuous. There are degenerative changes of the right shoulder. Impression: Hypoventilatory exam. No definite acute process
[2016-07-07 12:00] VITALS: BP 101/47
[2016-07-07 12:28] LABS: MEAN CORPUSCULAR HEMOGLOBIN 25.5 PG (27.0-31.0); MEAN CORPUSCULAR HGB CONC 33.2 G/DL (32.0-36.0); MEAN CORPUSCULAR VOLUME 77 FL (80-99); MEAN PLATELET VOLUME 13.9 FL (6.5-10.1); PLATELET COUNT 169 K/UL (150-450); RED BLOOD COUNT 3.35 M/UL (4.20-5.40); RED CELL DISTRIBUTION WIDTH 16.2 % (11.6-14.8); WHITE BLOOD COUNT 20.2 K/UL (4.8-10.8)
[2016-07-07 12:52] LABS: APPEARANCE,URINE CLEAR; KETONES,URINE NEGATIVE (NEGATIVE); NITRITE,URINE NEGATIVE (NEGATIVE); PH,URINE 5 (4.5-8.0); PROTEIN,URINE 2+ (NEGATIVE); UROBILINOGEN,URINE NORMAL MG/DL (0.0-1.0)
[2016-07-07 13:15] LABS: LEUKOCYTE ESTERASE ,URINE 1+ (NEGATIVE)
[2016-07-07 13:16] LABS: BACTERIA,URINE FEW /HPF; RBC,URINE 0-2 /HPF (0 - 2); SQUAMOUS EPITHELIAL CELL,UR FEW /LPF (NONE/OCC)
[2016-07-07 13:28] LABS: ANISOCYTOSIS 1+; BAND NEUTROPHILS % (MANUAL) 0 % (0-8); BASOPHILS % (MANUAL) 0 % (0-2); EOSINOPHILS % (MANUAL) 1 % (0-3); HYPOCHROMASIA 1+; LYMPHOCYTES % (MANUAL) 29 % (20-45); NEUTROPHILS % (MANUAL) 65 % (45-75); PLATELET ESTIMATE ADEQUATE; PLATELET MORPHOLOGY NORMAL; TOTAL CELLS COUNTED 100
[2016-07-07 13:29] LABS: MICROCYTES 1+
[2016-07-07 16:00] VITALS: BP 109/55
[2016-07-07] MEDS: Acetaminophen 500mg (ES) tab ORAL PRN (19:21)
[2016-07-07] MEDS: Atorvastatin 20mg tab ORAL SCH (20:26)
[2016-07-07 23:24] VITALS: BP 108/60
[2016-07-08] VITALS (7 sets, daily range): BP systolic 132–156; BP diastolic 72–84
[2016-07-08] MEDS: DuoNeb 0.5-3(2.5)mg/3ml neb HHN SCH ×5 (03:00→20:03)
[2016-07-08] MEDS: Levothyroxine 25mcg tab ORAL SCH (06:09)
[2016-07-08] MEDS: Lactobacillus-GG tablet ORAL SCH ×3 (06:09→20:56)
[2016-07-08] MEDS: NovoLOG Insulin Flexpen SUBQ SCH ×4 (06:25→21:00)
[2016-07-08] MEDS: Lisinopril 20mg tab ORAL SCH (08:59)
[2016-07-08] MEDS: Dakin's 0.5% (Full Strength) 16oz TOPIC SCH (08:59)
[2016-07-08] MEDS: Heparin 5000 units/ml inj SUBQ SCH ×2 (09:00→20:59)
[2016-07-08] MEDS: ANAGRELIDE 0.5 MG ORAL SCH ×2 (09:00→18:31)
[2016-07-08] MEDS: Docusate 250mg cap ORAL SCH ×2 (09:00→18:00)
[2016-07-08] MEDS: levETIRAcetam 500mg/5ml Liquid NG SCH ×2 (09:00→20:56)
[2016-07-08] MEDS: metFORMIN 500mg tab ORAL SCH ×2 (09:01→18:31)
[2016-07-08] MEDS: Memantine 10mg tab ORAL SCH (09:01)
--- NOTE | 2016-07-08 09:33 | General Progress Note ---
Assessment/Plan Problem List: (1) Hyperglycemia ICD Codes: R73.9 - Hyperglycemia SNOMED: 90360852 (2) Altered mental status ICD Codes: R41.82 - Altered mental status SNOMED: 627162982 Qualifiers: Qualified Codes: R41.82 - Altered mental status, unspecified (3) Sepsis ICD Codes: A41.9 - Sepsis SNOMED: 35325758 (4) Altered mental status ICD Codes: R41.82 - Altered mental status, unspecified SNOMED: 687188744 Qualifiers: Qualified Codes: R41.0 - Disorientation, unspecified (5) Stroke ICD Codes: I63.9 - Stroke SNOMED: 951831115 Qualifiers: (6) Hypothyroid ICD Codes: E03.9 - Hypothyroid SNOMED: 29901730 Qualifiers: Qualified Codes: E03.9 - Hypothyroidism, unspecified (7) Decubitus ulcer, stage 4 with infection ICD Codes: L89.94 - Pressure ulcer of unspecified site, stage 4 SNOMED: 9514871, 192433051 Status: stable, not improved Assessment/Plan antiemetics ivf monitor HR laxatives/enemas as needed abx per ID wound care monitor cbc ?etiology of elevated wbc. ?wound infxn/osteo Subjective ROS Limited/Unobtainable: No Constitutional: Reports: no symptoms HEENT: Reports: no symptoms Cardiovascular: Reports: no symptoms Respiratory: Reports: no symptoms Gastrointestinal/Abdominal: Reports: no symptoms Genitourinary: Reports: no symptoms Neurologic/Psychiatric: Reports: pre-existing deficit Endocrine: Reports: no symptoms Allergies: Coded Allergies: HYDROMORPHONE (Verified Allergy, Unknown, 09/21/14) MORPHINE (Unverified Allergy, Unknown, 04/27/16) All Systems: reviewed and negative except above Subjective no events. resting. no overnite events. off iv abx. wbc elevated to 20k. cdiff ordered by ID. Objective Last 24 Hour Vital Signs Date Time Temp Pulse Resp B/P Pulse Ox O2 Delivery O2 Flow Rate FiO2 07/08/16 09:01 96 137/84 07/08/16 08:59 137/84 07/08/16 08:40 97.8 96 20 137/84 96 07/08/16 07:16 Room Air 21 07/08/16 07:16 81 18 93 Room Air 21 07/08/16 04:00 97.0 99 18 156/72 93 Room Air 07/08/16 03:30 Room Air 21 07/08/16 03:30 Room Air 21 07/07/16 23:38 Room Air 21 07/07/16 23:30 Room Air 21 07/07/16 23:24 98.2 100 18 108/60 98 Room Air 07/07/16 20:27 105 109/55 07/07/16 20:20 97.9 07/07/16 19:30 Room Air 21 07/07/16 19:30 Room Air 21 07/07/16 16:00 97.9 105 20 109/55 96 Room Air 07/07/16 15:11 21 07/07/16 15:11 Room Air 07/07/16 12:00 97.9 108 20 101/47 98 Room Air 07/07/16 11:16 96 16 100 Room Air 07/07/16 11:08 82 16 100 Room Air Intake and Output 07/07/16 07/08/16 19:00 07:00 Intake Total 840 ml Output Total 475 ml 225 ml Balance 365 ml -225 ml Intake Oral 840 ml Output Urine Total 475 ml 225 ml Laboratory Tests 07/07/16 11:30: Urine Color Pale yellow, Urine Appearance Clear, Urine pH 5, Urine Specific [place] 1.010, Urine Protein 2+H, Urine Glucose (UA) Negative, Urine Ketones Negative, Urine Occult Blood Negative, Urine Nitrite Negative, Urine Bilirubin Negative, Urine Urobilinogen Normal, Urine Leukocyte Esterase 1+H, Urine RBC 0-2 , Urine WBC 2-4, Urine Squamous Epithelial Cells Few, Urine Bacteria Few 07/07/16 12:15: White Blood Count 20.2H, Red Blood Count 3.35L, Hemoglobin 8.5L, Hematocrit 25.6L, Mean Corpuscular Volume 77L, Mean Corpuscular Hemoglobin 25.5L, Mean Corpuscular Hemoglobin Concent 33.2, Red Cell Distribution Width 16.2H, Platelet Count 169, Mean Platelet Volume 13.9H, Neutrophils (%) (Auto) , Lymphocytes (%) (Auto) , Monocytes (%) (Auto) , Eosinophils (%) (Auto) , Basophils (%) (Auto) , Differential Total Cells Counted 100, Neutrophils % ( Manual) 65, Lymphocytes % (Manual) 29, Monocytes % (Manual) 5, Eosinophils % ( Manual) 1, Basophils % (Manual) 0, Band Neutrophils 0, Platelet Estimate Adequate, Platelet Morphology Normal, Hypochromasia 1+, Anisocytosis 1+, Microcytosis 1+ Height (Feet): 5 Height (Inches): 6.00 Weight (Pounds): 150 Objective General Appearance: WD/WN, alert Neck: supple Cardiovascular: regular rhythm Respiratory/Chest: chest wall non-tender, lungs clear, normal breath sounds, no respiratory distress, no accessory muscle use Abdomen: normal bowel sounds, non tender, soft, no organomegaly, no mass Edema: no edema noted Arm (L), no edema noted Arm (R), no edema noted Leg (L), no edema noted Leg (R), no edema noted Pedal (L), no edema noted Pedal (R), no edema noted Generalized Objective bandage over sacrum wound clean and pink. no discharge ISIDORO BYRNE Jul 08, 2016 09:33
[2016-07-08] MEDS: Atorvastatin 20mg tab ORAL SCH (20:55)
[2016-07-09] VITALS: BP 123/66
[2016-07-09] MEDS: DuoNeb 0.5-3(2.5)mg/3ml neb HHN SCH ×7 (00:22→23:00)
[2016-07-09 04:00] VITALS: BP 119/59
[2016-07-09] MEDS: Lactobacillus-GG tablet ORAL SCH ×3 (06:22→20:28)
[2016-07-09] MEDS: Levothyroxine 25mcg tab ORAL SCH (06:24)
[2016-07-09] MEDS: NovoLOG Insulin Flexpen SUBQ SCH ×4 (06:29→20:31)
[2016-07-09 08:00] VITALS: BP 152/73
[2016-07-09] MEDS: Docusate 250mg cap ORAL SCH ×2 (08:42→16:25)
[2016-07-09] MEDS: Lisinopril 20mg tab ORAL SCH (08:42)
[2016-07-09] MEDS: ANAGRELIDE 0.5 MG ORAL SCH ×2 (08:42→16:25)
[2016-07-09] MEDS: Memantine 10mg tab ORAL SCH (08:42)
[2016-07-09] MEDS: metFORMIN 500mg tab ORAL SCH ×2 (08:42→16:25)
[2016-07-09] MEDS: levETIRAcetam 500mg/5ml Liquid NG SCH ×2 (08:43→20:28)
[2016-07-09] MEDS: Heparin 5000 units/ml inj SUBQ SCH ×2 (08:46→20:30)
[2016-07-09] MEDS: Dakin's 0.5% (Full Strength) 16oz TOPIC SCH (08:54)
[2016-07-09 12:00] VITALS: BP 123/69
--- NOTE | 2016-07-09 12:48 | Infectious Diseases Prog Note ---
Assessment/Plan Assessment/Plan A; Complicated UTI Leukocytosis DM HPN MRSA & VRE colonization Pressure ulcer Fecal impaction P: Change Patel catheter Follow CBC Subjective ROS Limited/Unobtainable: Yes Allergies: Coded Allergies: HYDROMORPHONE (Verified Allergy, Unknown, 09/21/14) MORPHINE (Unverified Allergy, Unknown, 04/27/16) Objective Vital Signs Last 24 Hour Vital Signs Date Time Temp Pulse Resp B/P Pulse Ox O2 Delivery O2 Flow Rate FiO2 07/09/16 11:30 95 18 97 Room Air 21 07/09/16 11:28 21 07/09/16 11:27 95 18 97 Room Air 21 07/09/16 08:48 99 152/73 07/09/16 08:42 152/73 07/09/16 08:00 96.1 99 18 152/73 94 Room Air 07/09/16 07:43 94 18 96 Room Air 21 07/09/16 07:37 97 18 83 Room Air 21 07/09/16 07:37 21 07/09/16 04:00 97.2 99 19 119/59 96 Room Air 07/09/16 03:58 92 18 95 Room Air 92.0 21 07/09/16 03:51 21 07/09/16 03:50 96 18 92 Room Air 21 07/09/16 00:00 97.0 113 20 123/66 95 Room Air 07/08/16 23:59 106 16 95 Room Air 21 07/08/16 23:49 21 07/08/16 23:49 105 16 93 Room Air 21 07/08/16 22:30 98.2 90 20 149/75 94 Room Air 07/08/16 21:36 98.2 90 20 149/75 94 Room Air 07/08/16 20:56 90 149/80 07/08/16 20:00 98.2 90 20 149/75 94 Room Air 07/08/16 19:59 108 18 95 Room Air 21 07/08/16 19:49 110 10 95 Room Air 21 07/08/16 19:49 21 07/08/16 16:04 98.1 108 22 132/72 95 Room Air 07/08/16 15:30 Room Air 07/08/16 15:30 92 18 96 Room Air Height (Feet): 5 Height (Inches): 6.00 Weight (Pounds): 150 General Appearance: no acute distress HEENT: mucous membranes moist Respiratory/Chest: lungs clear Cardiovascular: normal rate Abdomen: soft, non tender Genitourinary: other - Patel catheter Extremities: no edema Neurologic/Psychiatric: alert, responsive Microbiology Date/Time Source Procedure Growth Status 07/07/16 11:30 Urine,Clean Catch Urine Culture - Preliminary Gram Negative Bacillus 1 Gram Negative Bacillus 2 Resulted Current Medications Medications (Trade) Dose Ordered Sig/Rupert Route PRN Reason Start Time Stop Time Status Last Admin Dose Admin Acetaminophen (Tylenol) 500 mg Q6H PRN ORAL Mild Pain/Temp > 100.5 05/30/16 20:15 07/25/16 20:14 07/07/16 19:21 Albuterol/ Ipratropium (DuoNeb 0.5-3(2.5)mg/3ml) 3 ml Q4HRT HHN 07/07/16 03:00 07/12/16 02:59 07/09/16 11:27 Amlodipine Besylate (Norvasc) 5 mg Q12HR ORAL 04/27/16 21:00 07/25/16 20:59 07/09/16 08:48 Anagrelide HCl (Agrylin) 0.5 mg BID ORAL 07/04/16 09:00 08/03/16 08:59 07/09/16 08:42 Atorvastatin Calcium (Lipitor) 20 mg BEDTIME ORAL 04/27/16 21:00 07/25/16 20:59 07/08/16 20:55 Clonidine HCl (Catapres) 0.1 mg Q4H PRN ORAL For High Blood Pressure 06/19/16 14:30 07/19/16 14:29 06/19/16 14:50 Docusate Sodium (Colace) 250 mg BID ORAL 07/04/16 09:00 08/03/16 08:59 07/09/16 08:42 Ferrous Sulfate (Feosol) 325 mg THREE TIMES A DAY ORAL 04/28/16 09:00 07/25/16 08:59 07/09/16 11:37 Guaifenesin/ Dextromethorphan (Robitussin DM) 10 ml Q4H PRN ORAL For Cough 07/06/16 23:15 08/05/16 23:14 07/07/16 22:33 Heparin Sodium (Porcine) (Heparin 5000 units/ml) 5,000 units EVERY 12 HOURS SUBQ 04/27/16 21:00 07/25/16 20:59 07/09/16 08:46 Insulin Aspart (NovoLOG) BEFORE MEALS AND HS SUBQ 04/27/16 21:00 07/25/16 20:59 07/09/16 11:37 Lactobacillus Acidophilus (Culturelle) 1 tab Q8HR ORAL 04/27/16 22:00 07/25/16 21:59 07/09/16 11:37 Levetiracetam (Keppra) 500 mg Q12HR NG 06/24/16 09:00 07/24/16 08:59 07/09/16 08:43 Levothyroxine Sodium (Synthroid) 25 mcg DAILY@0630 ORAL 05/01/16 06:30 07/25/16 06:29 07/09/16 06:24 Levothyroxine Sodium (Synthroid) 150 mcg DAILY@0630 ORAL 05/01/16 06:30 07/25/16 06:29 07/09/16 06:23 Lisinopril (Prinivil) 40 mg DAILY ORAL 05/02/16 09:00 07/25/16 08:59 07/09/16 08:42 Magnesium Hydroxide (Mom) 30 ml DAILYPRN PRN ORAL Constipation 07/04/16 08:45 08/03/16 08:44 07/07/16 11:57 Memantine (Namenda) 10 mg DAILY ORAL 04/28/16 09:00 07/25/16 08:59 07/09/16 08:42 Metformin HCl (Glucophage) 1,000 mg BID ORAL 04/28/16 09:00 07/25/16 08:59 07/09/16 08:42 Sodium Hypochlorite (Dakin's Full Strength) 1 applic DAILY TOPIC 05/29/16 16:00 07/25/16 15:59 07/09/16 08:54 Sodium Phosphate (Fleet's Sodium Phosl Enema) 133 ml DAILYPRN PRN RECTAL constipation 07/05/16 12:30 08/04/16 12:29 07/05/16 13:52 EFRAIN GARCIA Jul 09, 2016 12:48
[2016-07-09 16:00] VITALS: BP 140/64
[2016-07-09 20:00] VITALS: BP 150/76
[2016-07-09] MEDS: Atorvastatin 20mg tab ORAL SCH (20:28)
[2016-07-10] VITALS: BP 149/74
[2016-07-10] MEDS: DuoNeb 0.5-3(2.5)mg/3ml neb HHN SCH ×6 (03:00→22:35)
[2016-07-10 04:00] VITALS: BP 128/68
[2016-07-10] MEDS: Levothyroxine 25mcg tab ORAL SCH (05:44)
[2016-07-10] MEDS: Lactobacillus-GG tablet ORAL SCH ×3 (05:44→21:52)
[2016-07-10] MEDS: NovoLOG Insulin Flexpen SUBQ SCH ×4 (05:45→21:57)
[2016-07-10 08:00] VITALS: BP 160/85
[2016-07-10] MEDS: levETIRAcetam 500mg/5ml Liquid NG SCH ×2 (08:05→21:52)
[2016-07-10] MEDS: ANAGRELIDE 0.5 MG ORAL SCH ×2 (08:05→17:46)
[2016-07-10] MEDS: metFORMIN 500mg tab ORAL SCH ×2 (08:05→17:46)
[2016-07-10] MEDS: Docusate 250mg cap ORAL SCH ×2 (08:06→17:46)
[2016-07-10] MEDS: Memantine 10mg tab ORAL SCH (08:06)
[2016-07-10] MEDS: Lisinopril 20mg tab ORAL SCH (08:06)
[2016-07-10 08:08] LABS: BASOPHILS % (AUTO) 1.4 % (0.0-2.0); EOSINOPHILS % (AUTO) 1.2 % (0.0-3.0); LYMPHOCYTES % (AUTO) 26.5 % (20.0-45.0); MEAN CORPUSCULAR HEMOGLOBIN 24.3 PG (27.0-31.0); MEAN CORPUSCULAR HGB CONC 31.9 G/DL (32.0-36.0); MEAN CORPUSCULAR VOLUME 76 FL (80-99); MEAN PLATELET VOLUME 10.3 FL (6.5-10.1); MONOCYTES % (AUTO) 6.8 % (1.0-10.0); NEUTROPHILS % (AUTO) 64.1 % (45.0-75.0); PLATELET COUNT 475 K/UL (150-450); RED BLOOD COUNT 3.42 M/UL (4.20-5.40); RED CELL DISTRIBUTION WIDTH 16.8 % (11.6-14.8)
[2016-07-10] MEDS: Heparin 5000 units/ml inj SUBQ SCH ×2 (08:10→22:04)
[2016-07-10] MEDS: Dakin's 0.5% (Full Strength) 16oz TOPIC SCH (08:12)
[2016-07-10 11:16] LABS: OTHERS PATHOLOGIST COMMENT
[2016-07-10 12:00] VITALS: BP 105/50
--- NOTE | 2016-07-10 12:13 | Infectious Diseases Prog Note ---
Assessment/Plan Assessment/Plan A; Complicated UTI Leukocytosis improving DM HPN MRSA & VRE colonization Pressure ulcer Fecal impaction P: Start on Zosyn Follow CBC Subjective ROS Limited/Unobtainable: Yes Constitutional: Reports: other - dose not feel good Allergies: Coded Allergies: HYDROMORPHONE (Verified Allergy, Unknown, 09/21/14) MORPHINE (Unverified Allergy, Unknown, 04/27/16) Objective Vital Signs Last 24 Hour Vital Signs Date Time Temp Pulse Resp B/P Pulse Ox O2 Delivery O2 Flow Rate FiO2 07/10/16 11:45 Room Air 07/10/16 11:45 Room Air 07/10/16 08:18 160/68 07/10/16 08:06 128/68 07/10/16 08:06 72 128/68 07/10/16 08:00 97.5 105 18 160/85 95 Room Air 07/10/16 07:45 Room Air 07/10/16 07:45 Room Air 07/10/16 04:00 98.8 72 18 128/68 94 Room Air 07/10/16 03:00 Room Air 07/10/16 03:00 109 16 96 Room Air 21 07/10/16 00:00 99.0 109 18 149/74 94 Room Air 07/09/16 23:00 Room Air 07/09/16 23:00 115 16 96 Room Air 21 07/09/16 20:28 115 140/64 07/09/16 20:00 98.4 118 18 150/76 94 Room Air 07/09/16 19:42 115 16 97 Room Air 21 07/09/16 19:30 121 16 95 Room Air 21 07/09/16 19:30 21 07/09/16 16:00 98.1 102 20 140/64 94 Room Air 07/09/16 14:47 94 18 97 Room Air 21 07/09/16 14:40 21 07/09/16 14:40 96 18 80 Room Air 21 Height (Feet): 5 Height (Inches): 6.00 Weight (Pounds): 150 General Appearance: no acute distress HEENT: mucous membranes moist Respiratory/Chest: lungs clear Cardiovascular: normal rate Abdomen: soft, non tender Extremities: no edema Neurologic/Psychiatric: alert, responsive Microbiology Date/Time Source Procedure Growth Status 07/09/16 14:30 Stool Clostridium difficile Toxin Assay - Final Complete Laboratory Tests Test 07/10/16 07:10 White Blood Count 15.0 K/UL (4.8-10.8) H Red Blood Count 3.42 M/UL (4.20-5.40) L Hemoglobin 8.3 G/DL (12.0-16.0) L Hematocrit 26.0 % (37.0-47.0) L Mean Corpuscular Volume 76 FL (80-99) L Mean Corpuscular Hemoglobin 24.3 PG (27.0-31.0) L Mean Corpuscular Hemoglobin Concent 31.9 G/DL (32.0-36.0) L Red Cell Distribution Width 16.8 % (11.6-14.8) H Platelet Count 475 K/UL (150-450) H Mean Platelet Volume 10.3 FL (6.5-10.1) H Neutrophils (%) (Auto) 64.1 % (45.0-75.0) Lymphocytes (%) (Auto) 26.5 % (20.0-45.0) Monocytes (%) (Auto) 6.8 % (1.0-10.0) Eosinophils (%) (Auto) 1.2 % (0.0-3.0) Basophils (%) (Auto) 1.4 % (0.0-2.0) Current Medications Medications (Trade) Dose Ordered Sig/Rupert Route PRN Reason Start Time Stop Time Status Last Admin Dose Admin Acetaminophen (Tylenol) 500 mg Q6H PRN ORAL Mild Pain/Temp > 100.5 05/30/16 20:15 07/25/16 20:14 07/07/16 19:21 Albuterol/ Ipratropium (DuoNeb 0.5-3(2.5)mg/3ml) 3 ml Q4HRT HHN 07/07/16 03:00 07/12/16 02:59 07/09/16 19:31 Amlodipine Besylate (Norvasc) 5 mg Q12HR ORAL 04/27/16 21:00 07/25/16 20:59 07/10/16 08:06 Anagrelide HCl (Agrylin) 0.5 mg BID ORAL 07/04/16 09:00 08/03/16 08:59 07/10/16 08:05 Atorvastatin Calcium (Lipitor) 20 mg BEDTIME ORAL 04/27/16 21:00 07/25/16 20:59 07/09/16 20:28 Clonidine HCl (Catapres) 0.1 mg Q4H PRN ORAL For High Blood Pressure 06/19/16 14:30 07/19/16 14:29 07/10/16 08:18 Docusate Sodium (Colace) 250 mg BID ORAL 07/04/16 09:00 08/03/16 08:59 07/10/16 08:06 Ferrous Sulfate (Feosol) 325 mg THREE TIMES A DAY ORAL 04/28/16 09:00 07/25/16 08:59 07/10/16 08:05 Guaifenesin/ Dextromethorphan (Robitussin DM) 10 ml Q4H PRN ORAL For Cough 07/06/16 23:15 08/05/16 23:14 07/07/16 22:33 Heparin Sodium (Porcine) (Heparin 5000 units/ml) 5,000 units EVERY 12 HOURS SUBQ 04/27/16 21:00 07/25/16 20:59 07/10/16 08:10 Insulin Aspart (NovoLOG) BEFORE MEALS AND HS SUBQ 04/27/16 21:00 07/25/16 20:59 07/10/16 11:52 Lactobacillus Acidophilus (Culturelle) 1 tab Q8HR ORAL 04/27/16 22:00 07/25/16 21:59 07/10/16 05:44 Levetiracetam (Keppra) 500 mg Q12HR NG 06/24/16 09:00 07/24/16 08:59 07/10/16 08:05 Levothyroxine Sodium (Synthroid) 25 mcg DAILY@0630 ORAL 05/01/16 06:30 07/25/16 06:29 07/10/16 05:44 Levothyroxine Sodium (Synthroid) 150 mcg DAILY@0630 ORAL 05/01/16 06:30 07/25/16 06:29 07/10/16 05:44 Lisinopril (Prinivil) 40 mg DAILY ORAL 05/02/16 09:00 07/25/16 08:59 07/10/16 08:06 Magnesium Hydroxide (Mom) 30 ml DAILYPRN PRN ORAL Constipation 07/04/16 08:45 08/03/16 08:44 07/07/16 11:57 Memantine (Namenda) 10 mg DAILY ORAL 04/28/16 09:00 07/25/16 08:59 07/10/16 08:06 Metformin HCl (Glucophage) 1,000 mg BID ORAL 04/28/16 09:00 07/25/16 08:59 07/10/16 08:05 Sodium Hypochlorite (Dakin's Full Strength) 1 applic DAILY TOPIC 05/29/16 16:00 07/25/16 15:59 07/10/16 08:12 Sodium Phosphate (Fleet's Sodium Phosl Enema) 133 ml DAILYPRN PRN RECTAL constipation 07/05/16 12:30 08/04/16 12:29 07/05/16 13:52 EFRAIN GARCIA Jul 10, 2016 12:13
--- NOTE | 2016-07-10 13:49 | General Progress Note ---
Assessment/Plan Problem List: (1) Hyperglycemia ICD Codes: R73.9 - Hyperglycemia SNOMED: 79747027 (2) Altered mental status ICD Codes: R41.82 - Altered mental status SNOMED: 748459607 Qualifiers: Qualified Codes: R41.82 - Altered mental status, unspecified (3) Sepsis ICD Codes: A41.9 - Sepsis SNOMED: 64742208 (4) Altered mental status ICD Codes: R41.82 - Altered mental status, unspecified SNOMED: 500571757 Qualifiers: Qualified Codes: R41.0 - Disorientation, unspecified (5) Stroke ICD Codes: I63.9 - Stroke SNOMED: 667049080 Qualifiers: (6) Hypothyroid ICD Codes: E03.9 - Hypothyroid SNOMED: 79071453 Qualifiers: Qualified Codes: E03.9 - Hypothyroidism, unspecified (7) Decubitus ulcer, stage 4 with infection ICD Codes: L89.94 - Pressure ulcer of unspecified site, stage 4 SNOMED: 8618892, 975514472 Status: stable, progressing Assessment/Plan abx per id wound care ivf as needed monitor labs improving Subjective ROS Limited/Unobtainable: No Constitutional: Reports: malaise, weakness HEENT: Reports: no symptoms Cardiovascular: Reports: no symptoms Respiratory: Reports: no symptoms Gastrointestinal/Abdominal: Reports: no symptoms Genitourinary: Reports: no symptoms Neurologic/Psychiatric: Reports: paresthesia Endocrine: Reports: no symptoms Hematologic/Lymphatic: Reports: anemia Allergies: Coded Allergies: HYDROMORPHONE (Verified Allergy, Unknown, 09/21/14) MORPHINE (Unverified Allergy, Unknown, 04/27/16) All Systems: reviewed and negative except above Subjective no events. resting. no overnite events. abx reordered by id. on zosyn. +esbl pseudmonas in urine Objective Last 24 Hour Vital Signs Date Time Temp Pulse Resp B/P Pulse Ox O2 Delivery O2 Flow Rate FiO2 07/10/16 12:00 97.2 99 18 105/50 98 Room Air 07/10/16 11:45 Room Air 07/10/16 11:45 Room Air 07/10/16 08:18 160/68 07/10/16 08:06 128/68 07/10/16 08:06 72 128/68 07/10/16 08:00 97.5 105 18 160/85 95 Room Air 07/10/16 07:45 Room Air 07/10/16 07:45 Room Air 07/10/16 04:00 98.8 72 18 128/68 94 Room Air 07/10/16 03:00 Room Air 07/10/16 03:00 109 16 96 Room Air 21 07/10/16 00:00 99.0 109 18 149/74 94 Room Air 07/09/16 23:00 Room Air 07/09/16 23:00 115 16 96 Room Air 21 07/09/16 20:28 115 140/64 07/09/16 20:00 98.4 118 18 150/76 94 Room Air 07/09/16 19:42 115 16 97 Room Air 21 07/09/16 19:30 121 16 95 Room Air 21 07/09/16 19:30 21 07/09/16 16:00 98.1 102 20 140/64 94 Room Air 07/09/16 14:47 94 18 97 Room Air 21 07/09/16 14:40 21 07/09/16 14:40 96 18 80 Room Air 21 Intake and Output 07/09/16 07/10/16 19:00 07:00 Intake Total 120 ml Output Total 650 ml Balance -530 ml Intake Oral 120 ml Output Urine Total 650 ml # Bowel Movements 1 Laboratory Tests 07/10/16 07:10: White Blood Count 15.0H, Red Blood Count 3.42L, Hemoglobin 8.3L, Hematocrit 26.0L, Mean Corpuscular Volume 76L, Mean Corpuscular Hemoglobin 24.3L, Mean Corpuscular Hemoglobin Concent 31.9L, Red Cell Distribution Width 16.8H, Platelet Count 475H, Mean Platelet Volume 10.3H, Neutrophils (%) (Auto) 64.1, Lymphocytes (%) (Auto) 26.5, Monocytes (%) (Auto) 6.8, Eosinophils (%) (Auto) 1.2, Basophils (%) (Auto) 1.4 Height (Feet): 5 Height (Inches): 6.00 Weight (Pounds): 150 Objective General Appearance: WD/WN, alert Neck: supple Cardiovascular: regular rhythm Respiratory/Chest: chest wall non-tender, lungs clear, normal breath sounds, no respiratory distress, no accessory muscle use Abdomen: normal bowel sounds, non tender, soft, no organomegaly, no mass Edema: no edema noted Arm (L), no edema noted Arm (R), no edema noted Leg (L), no edema noted Leg (R), no edema noted Pedal (L), no edema noted Pedal (R), no edema noted Generalized Objective bandage over sacrum wound clean and pink. no discharge ISIDORO BYRNE Jul 10, 2016 13:49
[2016-07-10] MEDS: Piperacillin/Tazobactam 3.375 GM in D5W 110 ML IVPB SCH ×2 (14:56→21:52)
[2016-07-10 16:00] VITALS: BP 106/53
[2016-07-10 20:00] VITALS: BP 122/57
[2016-07-10] MEDS: Atorvastatin 20mg tab ORAL SCH (21:52)
[2016-07-11] VITALS: BP 112/57
[2016-07-11] MEDS: DuoNeb 0.5-3(2.5)mg/3ml neb HHN SCH ×6 (03:00→23:16)
[2016-07-11 04:00] VITALS: BP 108/56
[2016-07-11] MEDS: Lactobacillus-GG tablet ORAL SCH ×3 (05:47→21:38)
[2016-07-11] MEDS: Levothyroxine 25mcg tab ORAL SCH (05:47)
[2016-07-11] MEDS: Piperacillin/Tazobactam 3.375 GM in D5W 110 ML IVPB SCH ×3 (05:48→21:38)
[2016-07-11] MEDS: NovoLOG Insulin Flexpen SUBQ SCH ×4 (05:51→21:38)
[2016-07-11 08:00] VITALS: BP 130/80
[2016-07-11] MEDS: ANAGRELIDE 0.5 MG ORAL SCH ×2 (08:53→17:33)
[2016-07-11] MEDS: levETIRAcetam 500mg/5ml Liquid NG SCH ×2 (08:53→21:39)
[2016-07-11] MEDS: Lisinopril 20mg tab ORAL SCH (08:53)
[2016-07-11] MEDS: metFORMIN 500mg tab ORAL SCH ×2 (08:53→17:33)
[2016-07-11] MEDS: Memantine 10mg tab ORAL SCH (08:54)
[2016-07-11] MEDS: Docusate 250mg cap ORAL SCH ×2 (08:54→17:33)
[2016-07-11] MEDS: Heparin 5000 units/ml inj SUBQ SCH ×2 (08:55→21:38)
[2016-07-11] MEDS: Dakin's 0.5% (Full Strength) 16oz TOPIC SCH (09:11)
--- NOTE | 2016-07-11 09:14 | General Progress Note ---
Assessment/Plan Problem List: (1) Hyperglycemia ICD Codes: R73.9 - Hyperglycemia SNOMED: 55981628 (2) Altered mental status ICD Codes: R41.82 - Altered mental status SNOMED: 938470435 Qualifiers: Qualified Codes: R41.82 - Altered mental status, unspecified (3) Sepsis ICD Codes: A41.9 - Sepsis SNOMED: 96867837 (4) Altered mental status ICD Codes: R41.82 - Altered mental status, unspecified SNOMED: 611516238 Qualifiers: Qualified Codes: R41.0 - Disorientation, unspecified (5) Stroke ICD Codes: I63.9 - Stroke SNOMED: 082220323 Qualifiers: (6) Hypothyroid ICD Codes: E03.9 - Hypothyroid SNOMED: 04921855 Qualifiers: Qualified Codes: E03.9 - Hypothyroidism, unspecified (7) Decubitus ulcer, stage 4 with infection ICD Codes: L89.94 - Pressure ulcer of unspecified site, stage 4 SNOMED: 6848974, 838440421 Status: stable Assessment/Plan abx per id wound care ivf as needed monitor labs. would like to see improvement in wbc improving Subjective ROS Limited/Unobtainable: No Constitutional: Reports: weakness HEENT: Reports: no symptoms Cardiovascular: Reports: no symptoms Respiratory: Reports: no symptoms Gastrointestinal/Abdominal: Reports: no symptoms Genitourinary: Reports: no symptoms Neurologic/Psychiatric: Reports: pre-existing deficit Endocrine: Reports: no symptoms Hematologic/Lymphatic: Reports: no symptoms Allergies: Coded Allergies: HYDROMORPHONE (Verified Allergy, Unknown, 09/21/14) MORPHINE (Unverified Allergy, Unknown, 04/27/16) All Systems: reviewed and negative except above Subjective no events. resting. no overnite events. up in bed. eating breakfast. no new complaints. on iv abx Objective Last 24 Hour Vital Signs Date Time Temp Pulse Resp B/P Pulse Ox O2 Delivery O2 Flow Rate FiO2 07/11/16 08:54 72 130/80 07/11/16 08:53 130/80 07/11/16 08:00 97.2 72 20 130/80 98 Room Air 07/11/16 07:57 86 16 100 Room Air 07/11/16 07:48 82 16 96 Room Air 21 07/11/16 04:00 97.8 92 18 108/56 97 Room Air 07/11/16 03:42 Room Air 07/11/16 03:42 Room Air 07/11/16 00:00 97.7 94 18 112/57 98 Room Air 07/10/16 22:36 102 16 100 Room Air 21 07/10/16 22:23 95 16 96 Room Air 21 07/10/16 21:57 97 122/57 07/10/16 20:09 97 16 99 Room Air 21 07/10/16 20:03 101 16 96 Room Air 21 07/10/16 20:00 98.1 110 22 122/57 95 Room Air 07/10/16 16:00 97.9 84 22 106/53 96 Room Air 07/10/16 16:00 97.9 84 22 106/53 96 Room Air 07/10/16 15:49 101 16 Room Air 07/10/16 15:40 99 16 Room Air 21 07/10/16 12:00 97.2 99 18 105/50 98 Room Air 07/10/16 11:45 Room Air 07/10/16 11:45 Room Air Intake and Output 07/10/16 07/11/16 19:00 07:00 Intake Total 350.0 ml 387.5 ml Output Total 100 ml 350 ml Balance 250.0 ml 37.5 ml Intake Oral 240 ml 250 ml IV Total 110.0 ml 137.5 ml Output Urine Total 100 ml 350 ml # Bowel Movements 1 Height (Feet): 5 Height (Inches): 6.00 Weight (Pounds): 150 Objective General Appearance: WD/WN, alert Neck: supple Cardiovascular: regular rhythm Respiratory/Chest: chest wall non-tender, lungs clear, normal breath sounds, no respiratory distress, no accessory muscle use Abdomen: normal bowel sounds, non tender, soft, no organomegaly, no mass Edema: no edema noted Arm (L), no edema noted Arm (R), no edema noted Leg (L), no edema noted Leg (R), no edema noted Pedal (L), no edema noted Pedal (R), no edema noted Generalized Objective bandage over sacrum wound clean and pink. no discharge ISIDORO BYRNE Jul 11, 2016 09:13
--- NOTE | 2016-07-11 10:25 | Wound Care Consultation ---
Wound Assessment Wound Assessment : Wound Number: #1 Wound Present on Admission: Yes New Wound: No Status Change of Wound: No Wound Location Body Site Modif: mid Wound Location Body Site: sacral Wound Type: pressure ulcer Gloria Test: Does not Gloria Pressure Ulcer Stage: IV/unstageable Incisional Wounds: Dehisced Incision Wound Thickness: Full Thickness Wound Length: 9.0 Wound Width: 9.0 Wound Depth: 2.5 Percent of Wound [place]/Red: 95 Percent of Wound Bed Yellow/Wh: 5 Wound Drainage Description: Serosanguineous Wound Drainage Amount: Moderate Wound Drainage Odor: None/Absent Tissue Surrounding Wound: Macerated Wound Undermining at 12:00: 2.0 Wound Undermining at 3:00: 1.0 - noted wound bed attaching Wound General Appearance: Reddened, Draining, Bone Palpable, Incision Dehiscence Wound Comment #1 sacral non-healing pressure ulcer stage IV/Unstageable s/p dehiscence incision. upon reassessment noted good progress to wound site. noted wound bed attaching, no undermining present at 6-9 wound bed attached, noted decrease in undermining to 12:00 2cm ,undermining 3:00 noted 1cm , Wound bed beefy pink ,no foul odor. noted bone palpable to site. continue current wound care remains effective at this time. no further deterioration present, pink beefy wound bed noted, tolerated assessment well and wound care well , no c/o pain , no facial grimacing, no moans or grunts noted.patient was cleaned , gentle perineal care provided ,remains clean and dry , repositioned to offload sacral site. Recommendation -Local wound care as ordered. -Turn and reposition. -Keep clean and dry. -Optimize nutrition. -Offload affected site. -Low air loss with AP p200 . -Avoid shear and friction to affected site. -Assess and notify MD for any changes of condition noted. SAMMIE BARLOW Jul 11, 2016 10:25
--- NOTE | 2016-07-11 11:44 | Infectious Diseases Prog Note ---
"Assessment/Plan Assessment/Plan antibiotics : zosyn A 1. 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 CVA 5. DM 6. HTN 7. e.coli | pseudomonas UTI 8. leucocytosis improving P 1. continue zosyn 2. will follow up cultures Subjective Constitutional: Denies: chills, fever Respiratory: Denies: dry cough, shortness of breath Gastrointestinal/Abdominal: Denies: diarrhea, nausea, vomiting Musculoskeletal: Denies: pain Allergies: Coded Allergies: HYDROMORPHONE (Verified Allergy, Unknown, 09/21/14) MORPHINE (Unverified Allergy, Unknown, 04/27/16) Objective Vital Signs Last 24 Hour Vital Signs Date Time Temp Pulse Resp B/P Pulse Ox O2 Delivery O2 Flow Rate FiO2 07/11/16 11:29 80 16 96 Room Air 07/11/16 08:54 72 130/80 07/11/16 08:53 130/80 07/11/16 08:00 97.2 72 20 130/80 98 Room Air 07/11/16 07:57 86 16 100 Room Air 07/11/16 07:48 82 16 96 Room Air 07/11/16 04:00 97.8 92 18 108/56 97 Room Air 07/11/16 03:42 Room Air 07/11/16 03:42 Room Air 07/11/16 00:00 97.7 94 18 112/57 98 Room Air 07/10/16 22:36 102 16 100 Room Air 07/10/16 22:23 95 16 96 Room Air 07/10/16 21:57 97 122/57 07/10/16 20:09 97 16 99 Room Air 07/10/16 20:03 101 16 96 Room Air 21 07/10/16 20:00 98.1 110 22 122/57 95 Room Air 07/10/16 16:00 97.9 84 22 106/53 96 Room Air 07/10/16 16:00 97.9 84 22 106/53 96 Room Air 07/10/16 15:49 101 16 Room Air 07/10/16 15:40 99 16 Room Air 07/10/16 12:00 97.2 99 18 105/50 98 Room Air 07/10/16 11:45 Room Air 07/10/16 11:45 Room Air Height (Feet): 5 Height (Inches): 6.00 Weight (Pounds): 150 Respiratory/Chest: lungs clear Cardiovascular: normal rate, regular rhythm, no gallop/murmur Abdomen: soft, non tender Extremities: no edema Microbiology Date/Time Source Procedure Growth Status 07/09/16 14:30 Stool Clostridium difficile Toxin Assay - Final Complete Laboratory Tests Test 07/11/16 11:00 White Blood Count Pending Red Blood Count Pending Hemoglobin Pending Hematocrit Pending Mean Corpuscular Volume Pending Mean Corpuscular Hemoglobin Pending Mean Corpuscular Hemoglobin Concent Pending Red Cell Distribution Width Pending Platelet Count Pending Mean Platelet Volume Pending Neutrophils (%) (Auto) Pending Lymphocytes (%) (Auto) Pending Monocytes (%) (Auto) Pending Eosinophils (%) (Auto) Pending Basophils (%) (Auto) Pending Sodium Level Pending Potassium Level Pending Chloride Level Pending Carbon Dioxide Level Pending Blood Urea Nitrogen Pending Creatinine Pending Estimat Glomerular Filtration Rate Pending Glucose Level Pending Calcium Level Pending Total Bilirubin Pending Aspartate Amino Transf (AST/SGOT) Pending Alanine Aminotransferase (ALT/SGPT) Pending Alkaline Phosphatase Pending Total Protein Pending Albumin Pending Globulin Pending ALESSIO KRISHNAMURTHY Jul 11, 2016 11:44"
[2016-07-11 11:46] LABS: BASOPHILS % (AUTO) 1.8 % (0.0-2.0); EOSINOPHILS % (AUTO) 2.3 % (0.0-3.0); LYMPHOCYTES % (AUTO) 23.9 % (20.0-45.0); MEAN CORPUSCULAR HEMOGLOBIN 24.6 PG (27.0-31.0); MEAN CORPUSCULAR HGB CONC 32.1 G/DL (32.0-36.0); MEAN CORPUSCULAR VOLUME 77 FL (80-99); MEAN PLATELET VOLUME 8.9 FL (6.5-10.1); MONOCYTES % (AUTO) 8.6 % (1.0-10.0); NEUTROPHILS % (AUTO) 63.4 % (45.0-75.0); PLATELET COUNT 394 K/UL (150-450); RED BLOOD COUNT 3.25 M/UL (4.20-5.40); RED CELL DISTRIBUTION WIDTH 17.2 % (11.6-14.8); WHITE BLOOD COUNT 12.3 K/UL (4.8-10.8)
[2016-07-11 11:58] LABS: ALANINE AMINOTRANSFERASE 7 U/L (3-33); ALBUMIN/GLOBULIN RATIO 0.6 (1.0-2.7); ANION GAP 17 (5-15); ASPARTATE AMINO TRANSFERASE 14 U/L (5-40); CARBON DIOXIDE 20 mEQ/L (20-30); CHLORIDE 102 mEQ/L (98-107); CREATININE 0.7 mg/dL (0.5-0.9); HEMOLYSIS 34; POTASSIUM 4.3 mEQ/L (3.4-4.9); SODIUM 139 mEQ/L (135-145)
[2016-07-11 12:00] VITALS: BP 130/70
[2016-07-11 16:10] VITALS: BP 126/60
[2016-07-11 20:00] VITALS: BP 119/59
[2016-07-11] MEDS: Atorvastatin 20mg tab ORAL SCH (21:38)
[2016-07-12] VITALS: BP 124/63
--- NOTE | 2016-07-12 03:19 | Progress Note ---
DATE: 07/11/2016 CARDIOLOGY PROGRESS NOTE SUBJECTIVE: The patient has no new complaints. She remains on antibiotics for urinary infection. She continues on wound care for her sacral flap. OBJECTIVE: VITAL SIGNS: Blood pressure 130/80, pulse 72, and respirations 18. NECK: Supple. LUNGS: Clear. CARDIAC: Regular. Normal S1 and S2. ABDOMEN: Soft. EXTREMITIES: No edema. LABORATORY DATA: White count 12.3 and hemoglobin 8. Potassium 4.3, BUN 13, creatinine 0.7, and glucose 251. Albumin is 2.4. Platelet count is 394,000. IMPRESSION: 1. Urinary tract infection. 2. Sepsis. 3. Sacral wound status post revision. 4. Anemia of chronic kidney disease. 5. Hypertensive heart disease. 6. 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 7. Type 2 diabetes with increasing glucose range. 8. Severe protein-calorie malnutrition. PLAN: 1. Protein supplement. 2. Continue antibiotics. 3. Wound care. 4. Continue anagrelide at current dosing. 5. Advanced diabetic regimen. 6. Transfuse for hemoglobin less than 8 g[address] Darius Duran M.D. DR: FREDERICK JOB#: [id number] CC:
[2016-07-12 04:00] VITALS: BP 107/73
[2016-07-12] MEDS: Levothyroxine 25mcg tab ORAL SCH (06:15)
[2016-07-12] MEDS: sitaGLIPtin 50mg tab ORAL SCH (06:15)
[2016-07-12] MEDS: Lactobacillus-GG tablet ORAL SCH ×3 (06:15→21:49)
[2016-07-12] MEDS: Piperacillin/Tazobactam 3.375 GM in D5W 110 ML IVPB SCH ×3 (06:16→21:49)
[2016-07-12] MEDS: NovoLOG Insulin Flexpen SUBQ SCH ×4 (06:18→20:38)
[2016-07-12 08:00] VITALS: BP 144/82
[2016-07-12] MEDS: metFORMIN 500mg tab ORAL SCH ×2 (08:39→17:27)
[2016-07-12] MEDS: Docusate 250mg cap ORAL SCH ×2 (08:40→17:27)
[2016-07-12] MEDS: Lisinopril 20mg tab ORAL SCH (08:40)
[2016-07-12] MEDS: Memantine 10mg tab ORAL SCH (08:41)
[2016-07-12] MEDS: levETIRAcetam 500mg/5ml Liquid NG SCH ×2 (08:41→20:10)
[2016-07-12] MEDS: ANAGRELIDE 0.5 MG ORAL SCH ×2 (08:41→17:27)
[2016-07-12] MEDS: Heparin 5000 units/ml inj SUBQ SCH ×2 (08:42→20:14)
[2016-07-12] MEDS: Dakin's 0.5% (Full Strength) 16oz TOPIC SCH (08:43)
[2016-07-12 12:00] VITALS: BP 144/76
--- NOTE | 2016-07-12 12:51 | General Progress Note ---
Assessment/Plan Problem List: (1) Hyperglycemia ICD Codes: R73.9 - Hyperglycemia SNOMED: 11305420 (2) Altered mental status ICD Codes: R41.82 - Altered mental status SNOMED: 208822606 Qualifiers: Qualified Codes: R41.82 - Altered mental status, unspecified (3) Sepsis ICD Codes: A41.9 - Sepsis SNOMED: 75588838 (4) Altered mental status ICD Codes: R41.82 - Altered mental status, unspecified SNOMED: 917822538 Qualifiers: Qualified Codes: R41.0 - Disorientation, unspecified (5) Stroke ICD Codes: I63.9 - Stroke SNOMED: 644008726 Qualifiers: (6) Hypothyroid ICD Codes: E03.9 - Hypothyroid SNOMED: 73292851 Qualifiers: Qualified Codes: E03.9 - Hypothyroidism, unspecified (7) Decubitus ulcer, stage 4 with infection ICD Codes: L89.94 - Pressure ulcer of unspecified site, stage 4 SNOMED: 9338270, 055622421 Status: stable, progressing Assessment/Plan abx per id wound care ivf as needed monitor labs. would like to see improvement in wbc improving Subjective ROS Limited/Unobtainable: No Constitutional: Reports: malaise, weakness HEENT: Reports: no symptoms Cardiovascular: Reports: no symptoms Respiratory: Reports: no symptoms Gastrointestinal/Abdominal: Reports: no symptoms Genitourinary: Reports: no symptoms Neurologic/Psychiatric: Reports: pre-existing deficit Endocrine: Reports: no symptoms Hematologic/Lymphatic: Reports: no symptoms Allergies: Coded Allergies: HYDROMORPHONE (Verified Allergy, Unknown, 09/21/14) MORPHINE (Unverified Allergy, Unknown, 04/27/16) All Systems: reviewed and negative except above Subjective no events. resting. no overnite events. up in bed. eating breakfast. no new complaints. Objective Last 24 Hour Vital Signs Date Time Temp Pulse Resp B/P Pulse Ox O2 Delivery O2 Flow Rate FiO2 07/12/16 12:00 97.0 103 20 144/76 97 Room Air 07/12/16 08:41 89 144/82 07/12/16 08:40 144/82 07/12/16 08:00 97.4 87 20 144/82 99 Room Air 07/12/16 04:00 98.0 94 18 107/73 99 Room Air 07/12/16 00:00 97.3 98 20 124/63 97 Room Air 07/11/16 23:17 99 18 100 Room Air 21 07/11/16 23:17 105 18 97 Room Air 21 07/11/16 21:34 97 119/59 07/11/16 20:00 97.9 97 22 119/59 95 Room Air 07/11/16 19:52 101 18 100 Room Air 21 07/11/16 19:52 103 18 97 Room Air 21 07/11/16 16:10 98.1 91 22 126/60 96 Room Air 07/11/16 15:56 93 16 Room Air 21 07/11/16 15:47 90 16 97 Room Air 21 Intake and Output 07/11/16 07/12/16 19:00 07:00 Intake Total 552.5 ml 470.0 ml Output Total 450 ml 850 ml Balance 102.5 ml -380.0 ml Intake Oral 360 ml 360 ml IV Total 192.5 ml 110.0 ml Output Urine Total 450 ml 850 ml # Bowel Movements 1 Height (Feet): 5 Height (Inches): 6.00 Weight (Pounds): 150 Objective General Appearance: WD/WN, alert Neck: supple Cardiovascular: regular rhythm Respiratory/Chest: chest wall non-tender, lungs clear, normal breath sounds, no respiratory distress, no accessory muscle use Abdomen: normal bowel sounds, non tender, soft, no organomegaly, no mass Edema: no edema noted Arm (L), no edema noted Arm (R), no edema noted Leg (L), no edema noted Leg (R), no edema noted Pedal (L), no edema noted Pedal (R), no edema noted Generalized Objective bandage over sacrum wound clean and pink. no discharge ISIDORO BYRNE Jul 12, 2016 12:51
--- NOTE | 2016-07-12 12:56 | General Progress Note ---
Assessment/Plan Problem List: (1) Hyperglycemia ICD Codes: R73.9 - Hyperglycemia SNOMED: 71486061 (2) Altered mental status ICD Codes: R41.82 - Altered mental status SNOMED: 668570770 Qualifiers: Qualified Codes: R41.82 - Altered mental status, unspecified (3) Sepsis ICD Codes: A41.9 - Sepsis SNOMED: 53769418 (4) Altered mental status ICD Codes: R41.82 - Altered mental status, unspecified SNOMED: 191750656 Qualifiers: Qualified Codes: R41.0 - Disorientation, unspecified (5) Stroke ICD Codes: I63.9 - Stroke SNOMED: 351324596 Qualifiers: (6) Hypothyroid ICD Codes: E03.9 - Hypothyroid SNOMED: 09933039 Qualifiers: Qualified Codes: E03.9 - Hypothyroidism, unspecified (7) Decubitus ulcer, stage 4 with infection ICD Codes: L89.94 - Pressure ulcer of unspecified site, stage 4 SNOMED: 6908171, 316117112 Status: stable, progressing Assessment/Plan abx per id wound care ivf as needed monitor labs. would like to see improvement in wbc monitor h/h may need transfusion improving Subjective ROS Limited/Unobtainable: No Constitutional: Reports: malaise, weakness HEENT: Reports: no symptoms Cardiovascular: Reports: no symptoms Respiratory: Reports: no symptoms Gastrointestinal/Abdominal: Reports: no symptoms Genitourinary: Reports: no symptoms Neurologic/Psychiatric: Reports: pre-existing deficit Endocrine: Reports: no symptoms Hematologic/Lymphatic: Reports: no symptoms Allergies: Coded Allergies: HYDROMORPHONE (Verified Allergy, Unknown, 09/21/14) MORPHINE (Unverified Allergy, Unknown, 04/27/16) All Systems: reviewed and negative except above Subjective no events. resting. no overnite events. up in bed. eating lunch. no pain. no new complaints. Objective Last 24 Hour Vital Signs Date Time Temp Pulse Resp B/P Pulse Ox O2 Delivery O2 Flow Rate FiO2 07/12/16 12:00 97.0 103 20 144/76 97 Room Air 07/12/16 08:41 89 144/82 07/12/16 08:40 144/82 07/12/16 08:00 97.4 87 20 144/82 99 Room Air 07/12/16 04:00 98.0 94 18 107/73 99 Room Air 07/12/16 00:00 97.3 98 20 124/63 97 Room Air 07/11/16 23:17 99 18 100 Room Air 21 07/11/16 23:17 105 18 97 Room Air 21 07/11/16 21:34 97 119/59 07/11/16 20:00 97.9 97 22 119/59 95 Room Air 07/11/16 19:52 101 18 100 Room Air 21 07/11/16 19:52 103 18 97 Room Air 21 07/11/16 16:10 98.1 91 22 126/60 96 Room Air 07/11/16 15:56 93 16 Room Air 07/11/16 15:47 90 16 97 Room Air 21 Intake and Output 07/11/16 07/12/16 19:00 07:00 Intake Total 552.5 ml 470.0 ml Output Total 450 ml 850 ml Balance 102.5 ml -380.0 ml Intake Oral 360 ml 360 ml IV Total 192.5 ml 110.0 ml Output Urine Total 450 ml 850 ml # Bowel Movements 1 Height (Feet): 5 Height (Inches): 6.00 Weight (Pounds): 150 Objective General Appearance: WD/WN, alert Neck: supple Cardiovascular: regular rhythm Respiratory/Chest: chest wall non-tender, lungs clear, normal breath sounds, no respiratory distress, no accessory muscle use Abdomen: normal bowel sounds, non tender, soft, no organomegaly, no mass Edema: no edema noted Arm (L), no edema noted Arm (R), no edema noted Leg (L), no edema noted Leg (R), no edema noted Pedal (L), no edema noted Pedal (R), no edema noted Generalized Objective bandage over sacrum wound clean and pink. no discharge ISIDORO BYRNE Jul 12, 2016 12:56
--- NOTE | 2016-07-12 14:24 | Infectious Diseases Prog Note ---
Assessment/Plan Assessment/Plan A; Complicated UTI Leukocytosis improving DM HPN MRSA & VRE colonization Pressure ulcer Fecal impaction P: Continue Zosyn Follow CBC Subjective ROS Limited/Unobtainable: Yes Allergies: Coded Allergies: HYDROMORPHONE (Verified Allergy, Unknown, 09/21/14) MORPHINE (Unverified Allergy, Unknown, 04/27/16) Objective Vital Signs Last 24 Hour Vital Signs Date Time Temp Pulse Resp B/P Pulse Ox O2 Delivery O2 Flow Rate FiO2 07/12/16 12:00 97.0 103 20 144/76 97 Room Air 07/12/16 08:41 89 144/82 07/12/16 08:40 144/82 07/12/16 08:00 97.4 87 20 144/82 99 Room Air 07/12/16 04:00 98.0 94 18 107/73 99 Room Air 07/12/16 00:00 97.3 98 20 124/63 97 Room Air 07/11/16 23:17 99 18 100 Room Air 21 07/11/16 23:17 105 18 97 Room Air 21 07/11/16 21:34 97 119/59 07/11/16 20:00 97.9 97 22 119/59 95 Room Air 07/11/16 19:52 101 18 100 Room Air 21 07/11/16 19:52 103 18 97 Room Air 21 07/11/16 16:10 98.1 91 22 126/60 96 Room Air 07/11/16 15:56 93 16 Room Air 21 07/11/16 15:47 90 16 97 Room Air 21 Height (Feet): 5 Height (Inches): 6.00 Weight (Pounds): 150 General Appearance: no acute distress HEENT: mucous membranes moist Respiratory/Chest: lungs clear Cardiovascular: normal rate Abdomen: soft, non tender Extremities: no edema Skin: ulcers Neurologic/Psychiatric: alert, responsive Microbiology Date/Time Source Procedure Growth Status 07/09/16 14:30 Stool Clostridium difficile Toxin Assay - Final Complete Current Medications Medications (Trade) Dose Ordered Sig/Rupert Route PRN Reason Start Time Stop Time Status Last Admin Dose Admin Acetaminophen (Tylenol) 500 mg Q6H PRN ORAL Mild Pain/Temp > 100.5 05/30/16 20:15 07/25/16 20:14 07/07/16 19:21 Amlodipine Besylate (Norvasc) 5 mg Q12HR ORAL 04/27/16 21:00 07/25/16 20:59 07/12/16 08:41 Anagrelide HCl (Agrylin) 0.5 mg BID ORAL 07/04/16 09:00 08/03/16 08:59 07/12/16 08:41 Atorvastatin Calcium (Lipitor) 20 mg BEDTIME ORAL 04/27/16 21:00 07/25/16 20:59 07/11/16 21:38 Clonidine HCl (Catapres) 0.1 mg Q4H PRN ORAL For High Blood Pressure 06/19/16 14:30 07/19/16 14:29 07/10/16 08:18 Docusate Sodium (Colace) 250 mg BID ORAL 07/04/16 09:00 08/03/16 08:59 07/12/16 08:40 Ferrous Sulfate (Feosol) 325 mg THREE TIMES A DAY ORAL 04/28/16 09:00 07/25/16 08:59 07/12/16 13:16 Guaifenesin/ Dextromethorphan 10 ml 10 ml Q4H PRN ORAL For Cough 07/06/16 23:15 08/05/16 23:14 07/07/16 22:33 Heparin Sodium (Porcine) (Heparin 5000 units/ml) 5,000 units EVERY 12 HOURS SUBQ 04/27/16 21:00 07/25/16 20:59 07/12/16 08:42 Insulin Aspart (NovoLOG) BEFORE MEALS AND HS SUBQ 04/27/16 21:00 07/25/16 20:59 07/12/16 12:01 Lactobacillus Acidophilus (Culturelle) 1 tab Q8HR ORAL 04/27/16 22:00 07/25/16 21:59 07/12/16 13:16 Levetiracetam (Keppra) 500 mg Q12HR NG 06/24/16 09:00 07/24/16 08:59 07/12/16 08:41 Levothyroxine Sodium (Synthroid) 25 mcg DAILY@0630 ORAL 05/01/16 06:30 07/25/16 06:29 07/12/16 06:15 Levothyroxine Sodium (Synthroid) 150 mcg DAILY@0630 ORAL 05/01/16 06:30 07/25/16 06:29 07/12/16 06:15 Lisinopril (Prinivil) 40 mg DAILY ORAL 05/02/16 09:00 07/25/16 08:59 07/12/16 08:40 Magnesium Hydroxide (Mom) 30 ml DAILYPRN PRN ORAL Constipation 07/04/16 08:45 08/03/16 08:44 07/07/16 11:57 Memantine (Namenda) 10 mg DAILY ORAL 04/28/16 09:00 07/25/16 08:59 07/12/16 08:41 Metformin HCl (Glucophage) 1,000 mg BID ORAL 04/28/16 09:00 07/25/16 08:59 07/12/16 08:39 Piperacillin Sod/ Tazobactam Sod/ Dextrose (Zosyn/D5W) 110 ml @ 27.5 mls/hr Q8HR IVPB 07/10/16 14:00 07/17/16 13:59 07/12/16 13:17 Sitagliptin Phosphate (Januvia) 50 mg ACBREAKFAST ORAL 07/12/16 06:30 08/11/16 06:29 07/12/16 06:15 Sodium Hypochlorite (Dakin's Full Strength) 1 applic DAILY TOPIC 05/29/16 16:00 07/25/16 15:59 07/12/16 08:43 Sodium Phosphate (Fleet's Sodium Phosl Enema) 133 ml DAILYPRN PRN RECTAL constipation 07/05/16 12:30 08/04/16 12:29 07/05/16 13:52 EFRAIN GARCIA Jul 12, 2016 14:24
[2016-07-12 16:00] VITALS: BP 146/78
[2016-07-12 20:00] VITALS: BP 131/63
[2016-07-12] MEDS: Atorvastatin 20mg tab ORAL SCH (20:10)
[2016-07-13] VITALS: BP_SYST 153; BP_SYST 154; BP_DIAS 86; BP_DIAS 90
[2016-07-13 04:00] VITALS: BP 154/90
[2016-07-13] MEDS: Levothyroxine 25mcg tab ORAL SCH (06:19)
[2016-07-13] MEDS: Lactobacillus-GG tablet ORAL SCH ×3 (06:19→21:37)
[2016-07-13] MEDS: sitaGLIPtin 50mg tab ORAL SCH (06:19)
[2016-07-13] MEDS: NovoLOG Insulin Flexpen SUBQ SCH ×4 (06:21→21:41)
[2016-07-13] MEDS: Piperacillin/Tazobactam 3.375 GM in D5W 110 ML IVPB SCH ×3 (06:23→22:45)
[2016-07-13 08:00] VITALS: BP 146/76
[2016-07-13] MEDS: ANAGRELIDE 0.5 MG ORAL SCH ×2 (08:26→18:44)
[2016-07-13] MEDS: Docusate 250mg cap ORAL SCH ×2 (08:27→18:44)
[2016-07-13] MEDS: metFORMIN 500mg tab ORAL SCH ×2 (08:27→18:45)
[2016-07-13] MEDS: Memantine 10mg tab ORAL SCH (08:27)
[2016-07-13] MEDS: levETIRAcetam 500mg/5ml Liquid NG SCH ×2 (08:28→21:34)
[2016-07-13] MEDS: Lisinopril 20mg tab ORAL SCH (08:28)
[2016-07-13] MEDS: Heparin 5000 units/ml inj SUBQ SCH ×2 (08:29→21:35)
[2016-07-13] MEDS: Dakin's 0.5% (Full Strength) 16oz TOPIC SCH (08:34)
[2016-07-13 11:57] VITALS: BP 109/58
--- NOTE | 2016-07-13 13:23 | General Progress Note ---
Assessment/Plan Problem List: (1) Hyperglycemia ICD Codes: R73.9 - Hyperglycemia SNOMED: 90624253 (2) Altered mental status ICD Codes: R41.82 - Altered mental status SNOMED: 525646811 Qualifiers: Qualified Codes: R41.82 - Altered mental status, unspecified (3) Sepsis ICD Codes: A41.9 - Sepsis SNOMED: 61009506 (4) Altered mental status ICD Codes: R41.82 - Altered mental status, unspecified SNOMED: 746458131 Qualifiers: Qualified Codes: R41.0 - Disorientation, unspecified (5) Stroke ICD Codes: I63.9 - Stroke SNOMED: 647238193 Qualifiers: (6) Hypothyroid ICD Codes: E03.9 - Hypothyroid SNOMED: 44012370 Qualifiers: Qualified Codes: E03.9 - Hypothyroidism, unspecified (7) Decubitus ulcer, stage 4 with infection ICD Codes: L89.94 - Pressure ulcer of unspecified site, stage 4 SNOMED: 4670588, 479702360 Assessment/Plan abx per id wound care ivf as needed check labs today monitor h/h may need transfusion improving Subjective ROS Limited/Unobtainable: No Constitutional: Reports: malaise, weakness HEENT: Reports: no symptoms Cardiovascular: Reports: no symptoms Respiratory: Reports: no symptoms Gastrointestinal/Abdominal: Reports: no symptoms Genitourinary: Reports: no symptoms Neurologic/Psychiatric: Reports: pre-existing deficit Endocrine: Reports: no symptoms Hematologic/Lymphatic: Reports: anemia Allergies: Coded Allergies: HYDROMORPHONE (Verified Allergy, Unknown, 09/21/14) MORPHINE (Unverified Allergy, Unknown, 04/27/16) All Systems: reviewed and negative except above Subjective no events. resting. no overnite events. up in bed. eating lunch. no pain. no new complaints. Objective Last 24 Hour Vital Signs Date Time Temp Pulse Resp B/P Pulse Ox O2 Delivery O2 Flow Rate FiO2 07/13/16 11:57 97.7 99 18 109/58 94 Room Air 07/13/16 08:28 146/76 07/13/16 08:27 93 146/76 07/13/16 08:00 97.0 93 18 146/76 95 Room Air 07/13/16 04:00 99.0 105 18 154/90 96 Room Air 07/13/16 00:00 97.6 121 18 153/86 96 Room Air 07/12/16 20:10 103 146/78 07/12/16 20:00 97.8 117 19 131/63 95 Room Air 07/12/16 16:00 97.7 103 20 146/78 99 Room Air Intake and Output 07/12/16 07/13/16 18:59 06:59 Intake Total 580.0 ml 560.0 ml Output Total 225 ml 600 ml Balance 355.0 ml -40.0 ml Intake Oral 360 ml 450 ml IV Total 220.0 ml 110.0 ml Output Urine Total 225 ml 600 ml # Bowel Movements 1 2 Height (Feet): 5 Height (Inches): 6.00 Weight (Pounds): 150 Objective General Appearance: WD/WN, alert Neck: supple Cardiovascular: regular rhythm Respiratory/Chest: chest wall non-tender, lungs clear, normal breath sounds, no respiratory distress, no accessory muscle use Abdomen: normal bowel sounds, non tender, soft, no organomegaly, no mass Edema: no edema noted Arm (L), no edema noted Arm (R), no edema noted Leg (L), no edema noted Leg (R), no edema noted Pedal (L), no edema noted Pedal (R), no edema noted Generalized Objective bandage over sacrum wound clean and pink. no discharge ISIDORO BYRNE Jul 13, 2016 13:23
--- NOTE | 2016-07-13 15:30 | Infectious Diseases Prog Note ---
Assessment/Plan Assessment/Plan A; Complicated UTI Leukocytosis improving DM HPN MRSA & VRE colonization Pressure ulcer Fecal impaction P: Continue Zosyn Follow CBC Subjective ROS Limited/Unobtainable: Yes Allergies: Coded Allergies: HYDROMORPHONE (Verified Allergy, Unknown, 09/21/14) MORPHINE (Unverified Allergy, Unknown, 04/27/16) Objective Vital Signs Last 24 Hour Vital Signs Date Time Temp Pulse Resp B/P Pulse Ox O2 Delivery O2 Flow Rate FiO2 07/13/16 11:57 97.7 99 18 109/58 94 Room Air 07/13/16 08:28 146/76 07/13/16 08:27 93 146/76 07/13/16 08:00 97.0 93 18 146/76 95 Room Air 07/13/16 04:00 99.0 105 18 154/90 96 Room Air 07/13/16 00:00 97.6 121 18 153/86 96 Room Air 07/12/16 20:10 103 146/78 07/12/16 20:00 97.8 117 19 131/63 95 Room Air 07/12/16 16:00 97.7 103 20 146/78 99 Room Air Height (Feet): 5 Height (Inches): 6.00 Weight (Pounds): 150 General Appearance: no acute distress HEENT: mucous membranes moist Respiratory/Chest: lungs clear Cardiovascular: normal rate Abdomen: soft, non tender Genitourinary: other - Patel catheter Extremities: no edema Neurologic/Psychiatric: other - sleeping Current Medications Medications (Trade) Dose Ordered Sig/Rupert Route PRN Reason Start Time Stop Time Status Last Admin Dose Admin Acetaminophen (Tylenol) 500 mg Q6H PRN ORAL Mild Pain/Temp > 100.5 05/30/16 20:15 07/25/16 20:14 07/07/16 19:21 Amlodipine Besylate (Norvasc) 5 mg Q12HR ORAL 04/27/16 21:00 07/25/16 20:59 07/13/16 08:27 Anagrelide HCl (Agrylin) 0.5 mg BID ORAL 07/04/16 09:00 08/03/16 08:59 07/13/16 08:26 Atorvastatin Calcium (Lipitor) 20 mg BEDTIME ORAL 04/27/16 21:00 07/25/16 20:59 07/12/16 20:10 Clonidine HCl (Catapres) 0.1 mg Q4H PRN ORAL For High Blood Pressure 06/19/16 14:30 07/19/16 14:29 07/10/16 08:18 Docusate Sodium (Colace) 250 mg BID ORAL 07/04/16 09:00 08/03/16 08:59 07/13/16 08:27 Ferrous Sulfate (Feosol) 325 mg THREE TIMES A DAY ORAL 04/28/16 09:00 07/25/16 08:59 07/13/16 13:30 Guaifenesin/ Dextromethorphan 10 ml 10 ml Q4H PRN ORAL For Cough 07/06/16 23:15 08/05/16 23:14 07/07/16 22:33 Heparin Sodium (Porcine) (Heparin 5000 units/ml) 5,000 units EVERY 12 HOURS SUBQ 04/27/16 21:00 07/25/16 20:59 07/13/16 08:29 Insulin Aspart (NovoLOG) BEFORE MEALS AND HS SUBQ 04/27/16 21:00 07/25/16 20:59 07/13/16 12:46 Lactobacillus Acidophilus (Culturelle) 1 tab Q8HR ORAL 04/27/16 22:00 07/25/16 21:59 07/13/16 13:31 Levetiracetam (Keppra) 500 mg Q12HR NG 06/24/16 09:00 07/24/16 08:59 07/13/16 08:28 Levothyroxine Sodium (Synthroid) 25 mcg DAILY@0630 ORAL 05/01/16 06:30 07/25/16 06:29 07/13/16 06:19 Levothyroxine Sodium (Synthroid) 150 mcg DAILY@0630 ORAL 05/01/16 06:30 07/25/16 06:29 07/13/16 06:19 Lisinopril (Prinivil) 40 mg DAILY ORAL 05/02/16 09:00 07/25/16 08:59 07/13/16 08:28 Magnesium Hydroxide (Mom) 30 ml DAILYPRN PRN ORAL Constipation 07/04/16 08:45 08/03/16 08:44 07/07/16 11:57 Memantine (Namenda) 10 mg DAILY ORAL 04/28/16 09:00 07/25/16 08:59 07/13/16 08:27 Metformin HCl (Glucophage) 1,000 mg BID ORAL 04/28/16 09:00 07/25/16 08:59 07/13/16 08:27 Piperacillin Sod/ Tazobactam Sod/ Dextrose (Zosyn/D5W) 110 ml @ 27.5 mls/hr Q8HR IVPB 07/10/16 14:00 07/17/16 13:59 07/13/16 13:30 Sitagliptin Phosphate (Januvia) 50 mg ACBREAKFAST ORAL 07/12/16 06:30 08/11/16 06:29 07/13/16 06:19 Sodium Hypochlorite (Dakin's Full Strength) 1 applic DAILY TOPIC 05/29/16 16:00 07/25/16 15:59 07/12/16 08:43 Sodium Phosphate (Fleet's Sodium Phosl Enema) 133 ml DAILYPRN PRN RECTAL constipation 07/05/16 12:30 08/04/16 12:29 07/05/16 13:52 EFRAIN GARCIA Jul 13, 2016 15:30
[2016-07-13 16:00] VITALS: BP 127/70
[2016-07-13 20:07] VITALS: BP 122/62
[2016-07-13] MEDS: Atorvastatin 20mg tab ORAL SCH (21:37)
[2016-07-14] VITALS: BP 114/71
--- NOTE | 2016-07-14 03:18 | Progress Note ---
DATE: 07/13/2016 CARDIOLOGY PROGRESS NOTE: SUBJECTIVE: The patient without any distress. Eating well . OBJECTIVE: VITAL SIGNS: Blood pressure 109/58, pulse 99, respiratory rate 18, and afebrile. LUNGS: Clear. CARDIAC: Regular. ABDOMEN: Soft. EXTREMITIES: No edema. Wound site has dressing in place. IMPRESSION: 1. Anemia of chronic kidney. 2. Type 2 diabetes mellitus. 3. Essential thrombocytosis. 4. Hypertensive heart disease. 5. Cerebrovascular disease with dementia. PLAN: Continue same therapy. Recheck lab studies. Reassess for further intervention. DISPOSITION: Still pending. Darius Duran M.D. DR: César JOB#: [id number] CC:
[2016-07-14 04:00] VITALS: BP 139/70
[2016-07-14] MEDS: Piperacillin/Tazobactam 3.375 GM in D5W 110 ML IVPB SCH ×3 (04:57→22:54)
[2016-07-14] MEDS: sitaGLIPtin 50mg tab ORAL SCH (06:00)
[2016-07-14] MEDS: Levothyroxine 25mcg tab ORAL SCH (06:00)
[2016-07-14] MEDS: Lactobacillus-GG tablet ORAL SCH ×3 (06:00→21:43)
[2016-07-14] MEDS: NovoLOG Insulin Flexpen SUBQ SCH ×4 (06:01→21:45)
[2016-07-14 07:33] LABS: BASOPHILS % (AUTO) 1.3 % (0.0-2.0); EOSINOPHILS % (AUTO) 2.2 % (0.0-3.0); LYMPHOCYTES % (AUTO) 30.3 % (20.0-45.0); MEAN CORPUSCULAR HEMOGLOBIN 24.3 PG (27.0-31.0); MEAN CORPUSCULAR HGB CONC 31.9 G/DL (32.0-36.0); MEAN CORPUSCULAR VOLUME 76 FL (80-99); MEAN PLATELET VOLUME 10.2 FL (6.5-10.1); MONOCYTES % (AUTO) 6.8 % (1.0-10.0); NEUTROPHILS % (AUTO) 59.4 % (45.0-75.0); PLATELET COUNT 473 K/UL (150-450); RED BLOOD COUNT 3.32 M/UL (4.20-5.40); RED CELL DISTRIBUTION WIDTH 16.8 % (11.6-14.8); WHITE BLOOD COUNT 11.2 K/UL (4.8-10.8)
[2016-07-14] MEDS: Memantine 10mg tab ORAL SCH (08:20)
[2016-07-14] MEDS: ANAGRELIDE 0.5 MG ORAL SCH ×2 (08:20→16:58)
[2016-07-14] MEDS: Docusate 250mg cap ORAL SCH ×2 (08:20→16:58)
[2016-07-14] MEDS: levETIRAcetam 500mg/5ml Liquid NG SCH ×2 (08:20→21:42)
[2016-07-14] MEDS: metFORMIN 500mg tab ORAL SCH ×2 (08:20→16:58)
[2016-07-14] MEDS: Lisinopril 20mg tab ORAL SCH (08:22)
[2016-07-14] MEDS: Heparin 5000 units/ml inj SUBQ SCH ×2 (08:23→21:45)
[2016-07-14] MEDS: Dakin's 0.5% (Full Strength) 16oz TOPIC SCH (08:24)
--- NOTE | 2016-07-14 08:34 | General Progress Note ---
Assessment/Plan Problem List: (1) Hyperglycemia ICD Codes: R73.9 - Hyperglycemia SNOMED: 56311654 (2) Altered mental status ICD Codes: R41.82 - Altered mental status SNOMED: 596306203 Qualifiers: Qualified Codes: R41.82 - Altered mental status, unspecified (3) Sepsis ICD Codes: A41.9 - Sepsis SNOMED: 48851039 (4) Altered mental status ICD Codes: R41.82 - Altered mental status, unspecified SNOMED: 146952378 Qualifiers: Qualified Codes: R41.0 - Disorientation, unspecified (5) Stroke ICD Codes: I63.9 - Stroke SNOMED: 761839902 Qualifiers: (6) Hypothyroid ICD Codes: E03.9 - Hypothyroid SNOMED: 35996743 Qualifiers: Qualified Codes: E03.9 - Hypothyroidism, unspecified (7) Decubitus ulcer, stage 4 with infection ICD Codes: L89.94 - Pressure ulcer of unspecified site, stage 4 SNOMED: 2712955, 268098296 Status: stable Assessment/Plan abx per id wound care ivf as needed check labs today monitor h/h may need transfusion added epogen improving Subjective ROS Limited/Unobtainable: No Constitutional: Reports: malaise, weakness HEENT: Reports: no symptoms Cardiovascular: Reports: no symptoms Respiratory: Reports: no symptoms Gastrointestinal/Abdominal: Reports: no symptoms Genitourinary: Reports: no symptoms Neurologic/Psychiatric: Reports: pre-existing deficit Endocrine: Reports: no symptoms Hematologic/Lymphatic: Reports: anemia Allergies: Coded Allergies: HYDROMORPHONE (Verified Allergy, Unknown, 09/21/14) MORPHINE (Unverified Allergy, Unknown, 04/27/16) All Systems: reviewed and negative except above Subjective no events. w/o complaints. denies chest pain or sob. about to eat breakfast Objective Last 24 Hour Vital Signs Date Time Temp Pulse Resp B/P Pulse Ox O2 Delivery O2 Flow Rate FiO2 07/14/16 08:22 116/58 07/14/16 08:21 85 116/58 07/14/16 04:00 97.2 98 18 139/70 94 Room Air 07/14/16 00:00 97.3 108 18 114/71 94 Room Air 07/13/16 21:37 107 122/62 07/13/16 20:07 96.8 107 20 122/62 94 Room Air 07/13/16 16:00 97.7 108 20 127/70 97 Room Air 07/13/16 11:57 97.7 99 18 109/58 94 Room Air Intake and Output 07/13/16 07/14/16 19:00 07:00 Intake Total 816.0 ml 615.0 ml Output Total 400 ml 675 ml Balance 416.0 ml -60.0 ml Intake Oral 596 ml 450 ml IV Total 220.0 ml 165.0 ml Output Urine Total 400 ml 675 ml # Bowel Movements 2 1 Laboratory Tests 07/14/16 04:50: White Blood Count 11.2H, Red Blood Count 3.32L, Hemoglobin 8.1L, Hematocrit 25.3L, Mean Corpuscular Volume 76L, Mean Corpuscular Hemoglobin 24.3L, Mean Corpuscular Hemoglobin Concent 31.9L, Red Cell Distribution Width 16.8H, Platelet Count 473H, Mean Platelet Volume 10.2H, Neutrophils (%) (Auto) 59.4, Lymphocytes (%) (Auto) 30.3, Monocytes (%) (Auto) 6.8, Eosinophils (%) (Auto) 2.2, Basophils (%) (Auto) 1.3 Height (Feet): 5 Height (Inches): 6.00 Weight (Pounds): 150 Objective General Appearance: WD/WN, alert Neck: supple Cardiovascular: regular rhythm Respiratory/Chest: chest wall non-tender, lungs clear, normal breath sounds, no respiratory distress, no accessory muscle use Abdomen: normal bowel sounds, non tender, soft, no organomegaly, no mass Edema: no edema noted Arm (L), no edema noted Arm (R), no edema noted Leg (L), no edema noted Leg (R), no edema noted Pedal (L), no edema noted Pedal (R), no edema noted Generalized Objective bandage over sacrum wound clean and pink. no discharge ISIDORO BYRNE Jul 14, 2016 08:34
[2016-07-14 08:52] VITALS: BP 115/58
--- NOTE | 2016-07-14 11:41 | Infectious Diseases Prog Note ---
"Assessment/Plan Assessment/Plan antibiotics : zosyn A 1. 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 CVA 5. DM 6. HTN 7. e.coli | pseudomonas UTI 8. leucocytosis improving P 1. continue zosyn 2 more days 2. will follow up cultures Subjective Constitutional: Denies: chills, fever Respiratory: Denies: dry cough, shortness of breath Gastrointestinal/Abdominal: Denies: diarrhea, nausea, vomiting Musculoskeletal: Denies: pain Allergies: Coded Allergies: HYDROMORPHONE (Verified Allergy, Unknown, 09/21/14) MORPHINE (Unverified Allergy, Unknown, 04/27/16) Objective Vital Signs Last 24 Hour Vital Signs Date Time Temp Pulse Resp B/P Pulse Ox O2 Delivery O2 Flow Rate FiO2 07/14/16 08:52 97.2 85 19 115/58 95 Room Air 07/14/16 08:22 116/58 07/14/16 08:21 85 116/58 07/14/16 04:00 97.2 98 18 139/70 94 Room Air 07/14/16 00:00 97.3 108 18 114/71 94 Room Air 07/13/16 21:37 107 122/62 07/13/16 20:07 96.8 107 20 122/62 94 Room Air 07/13/16 16:00 97.7 108 20 127/70 97 Room Air 07/13/16 11:57 97.7 99 18 109/58 94 Room Air Height (Feet): 5 Height (Inches): 6.00 Weight (Pounds): 150 Respiratory/Chest: lungs clear Cardiovascular: normal rate, regular rhythm, no gallop/murmur Abdomen: soft, non tender Extremities: no edema Laboratory Tests Test 07/14/16 04:50 White Blood Count 11.2 K/UL (4.8-10.8) H Red Blood Count 3.32 M/UL (4.20-5.40) L Hemoglobin 8.1 G/DL (12.0-16.0) L Hematocrit 25.3 % (37.0-47.0) L Mean Corpuscular Volume 76 FL (80-99) L Mean Corpuscular Hemoglobin 24.3 PG (27.0-31.0) L Mean Corpuscular Hemoglobin Concent 31.9 G/DL (32.0-36.0) L Red Cell Distribution Width 16.8 % (11.6-14.8) H Platelet Count 473 K/UL (150-450) H Mean Platelet Volume 10.2 FL (6.5-10.1) H Neutrophils (%) (Auto) 59.4 % (45.0-75.0) Lymphocytes (%) (Auto) 30.3 % (20.0-45.0) Monocytes (%) (Auto) 6.8 % (1.0-10.0) Eosinophils (%) (Auto) 2.2 % (0.0-3.0) Basophils (%) (Auto) 1.3 % (0.0-2.0) ALESSIO KRISHNAMURTHY Jul 14, 2016 11:41"
[2016-07-14 12:03] LABS: ALANINE AMINOTRANSFERASE 5 U/L (3-33); ALBUMIN/GLOBULIN RATIO 0.9 (1.0-2.7); ANION GAP 16 (5-15); ASPARTATE AMINO TRANSFERASE 12 U/L (5-40); CALCIUM 9.1 mg/dL (8.6-10.2); CARBON DIOXIDE 24 mEQ/L (20-30); CHLORIDE 98 mEQ/L (98-107); CREATININE 0.7 mg/dL (0.5-0.9); HEMOLYSIS 2; MAGNESIUM 1.4 mg/dL (1.7-2.5); POTASSIUM 4.8 mEQ/L (3.4-4.9); SODIUM 138 mEQ/L (135-145); TOTAL PROTEIN 5.6 g/dL (6.6-8.7)
[2016-07-14 12:49] VITALS: BP 112/71
[2016-07-14 16:00] VITALS: BP 112/50
[2016-07-14 20:00] VITALS: BP 112/48
--- NOTE | 2016-07-14 20:38 | Progress Note ---
DATE: 07/14/2016 CARDIOLOGY PROGRESS NOTE SUBJECTIVE: The patient without any new complaints. OBJECTIVE: Vital signs are stable. Exam is unchanged. LABORATORY AND DIAGNOSTIC DATA: Labs are reviewed and notable for magnesium of 1.4, hemoglobin 8.2 and platelet count of 473,000. IMPRESSION AND PLAN: 1. Hypomagnesemia. We will replace. 2. Anemia of chronic disease and chronic kidney disease, on Epogen and iron. 3. Hypothyroidism, on replacement. 4. Essential thrombocytosis with slightly rising platelet count, may need to increase dose of anagrelide further. 5. Hypertensive heart disease with controlled blood pressure and compensated diastolic congestive heart failure. Darius Duran M.D. DR: CARLOS JOB#: [id number] CC:
[2016-07-14] MEDS: Atorvastatin 20mg tab ORAL SCH (21:42)
[2016-07-14] MEDS: Epogen (for non ESRD use) SUBQ SCH (21:43)
[2016-07-15] VITALS: BP 133/64
[2016-07-15 04:00] VITALS: BP 145/78
[2016-07-15] MEDS: Piperacillin/Tazobactam 3.375 GM in D5W 110 ML IVPB SCH ×3 (05:50→21:33)
[2016-07-15] MEDS: sitaGLIPtin 50mg tab ORAL SCH (05:50)
[2016-07-15] MEDS: Lactobacillus-GG tablet ORAL SCH ×3 (05:50→21:30)
[2016-07-15] MEDS: Levothyroxine 25mcg tab ORAL SCH (05:50)
[2016-07-15] MEDS: NovoLOG Insulin Flexpen SUBQ SCH ×4 (06:30→21:32)
--- NOTE | 2016-07-15 08:12 | General Progress Note ---
Assessment/Plan Problem List: (1) Hyperglycemia ICD Codes: R73.9 - Hyperglycemia SNOMED: 89287707 (2) Altered mental status ICD Codes: R41.82 - Altered mental status SNOMED: 301380144 Qualifiers: Qualified Codes: R41.82 - Altered mental status, unspecified (3) Sepsis ICD Codes: A41.9 - Sepsis SNOMED: 71881285 (4) Altered mental status ICD Codes: R41.82 - Altered mental status, unspecified SNOMED: 804307810 Qualifiers: Qualified Codes: R41.0 - Disorientation, unspecified (5) Stroke ICD Codes: I63.9 - Stroke SNOMED: 397751707 Qualifiers: (6) Hypothyroid ICD Codes: E03.9 - Hypothyroid SNOMED: 11374247 Qualifiers: Qualified Codes: E03.9 - Hypothyroidism, unspecified (7) Decubitus ulcer, stage 4 with infection ICD Codes: L89.94 - Pressure ulcer of unspecified site, stage 4 SNOMED: 5594883, 069260526 Status: stable, progressing Assessment/Plan abx per id wound care. turned frequently but turns back on to her buttocks ivf as needed monitor labs monitor h/h may need transfusion. on epo improving Subjective ROS Limited/Unobtainable: No Constitutional: Reports: malaise, weakness HEENT: Reports: no symptoms Cardiovascular: Reports: no symptoms Respiratory: Reports: no symptoms Gastrointestinal/Abdominal: Reports: no symptoms Genitourinary: Reports: no symptoms Neurologic/Psychiatric: Reports: pre-existing deficit Endocrine: Reports: no symptoms Hematologic/Lymphatic: Reports: anemia Allergies: Coded Allergies: HYDROMORPHONE (Verified Allergy, Unknown, 09/21/14) MORPHINE (Unverified Allergy, Unknown, 04/27/16) All Systems: reviewed and negative except above Subjective no events. w/o complaints. denies chest pain or sob. remains on iv abx. Objective Last 24 Hour Vital Signs Date Time Temp Pulse Resp B/P Pulse Ox O2 Delivery O2 Flow Rate FiO2 07/15/16 04:00 97.0 95 21 145/78 96 Nasal Cannula 07/15/16 00:00 97.8 90 21 133/64 97 Room Air 07/14/16 21:42 112 112/48 07/14/16 20:00 97.2 112 22 112/48 95 Room Air 07/14/16 16:00 97.7 103 22 112/50 97 Room Air 07/14/16 12:49 97.0 96 19 112/71 96 Room Air 07/14/16 08:52 97.2 85 19 115/58 95 Room Air 07/14/16 08:22 116/58 07/14/16 08:21 85 116/58 Intake and Output 07/14/16 07/15/16 19:00 07:00 Intake Total 265.0 ml 477.5 ml Output Total 850 ml Balance 265.0 ml -372.5 ml Intake Oral 240 ml IV Total 265.0 ml 237.5 ml Output Urine Total 850 ml # Bowel Movements 2 Laboratory Tests 07/15/16 05:10: Reticulocyte Count [Pending] Height (Feet): 5 Height (Inches): 6.00 Weight (Pounds): 150 Objective General Appearance: WD/WN, alert Neck: supple Cardiovascular: regular rhythm Respiratory/Chest: chest wall non-tender, lungs clear, normal breath sounds, no respiratory distress, no accessory muscle use Abdomen: normal bowel sounds, non tender, soft, no organomegaly, no mass Edema: no edema noted Arm (L), no edema noted Arm (R), no edema noted Leg (L), no edema noted Leg (R), no edema noted Pedal (L), no edema noted Pedal (R), no edema noted Generalized Objective bandage over sacrum wound clean and pink. no discharge ISIDORO BYRNE Jul 15, 2016 08:12
[2016-07-15] MEDS: Docusate 250mg cap ORAL SCH ×2 (08:22→17:42)
[2016-07-15] MEDS: ANAGRELIDE 0.5 MG ORAL SCH ×2 (08:22→17:42)
[2016-07-15] MEDS: levETIRAcetam 500mg/5ml Liquid NG SCH ×2 (08:22→21:33)
[2016-07-15] MEDS: metFORMIN 500mg tab ORAL SCH ×2 (08:23→17:42)
[2016-07-15] MEDS: Memantine 10mg tab ORAL SCH (08:23)
[2016-07-15] MEDS: Lisinopril 20mg tab ORAL SCH (08:24)
[2016-07-15] MEDS: Heparin 5000 units/ml inj SUBQ SCH ×2 (08:26→21:31)
[2016-07-15 08:55] VITALS: BP 135/57
[2016-07-15 12:52] VITALS: BP 131/68
[2016-07-15] MEDS ORDERED: NS 275ml ONE (14:02)
[2016-07-15] MEDS ORDERED: Tubing IV Secondary IV ONE (14:02)
[2016-07-15] MEDS: Dakin's 0.5% (Full Strength) 16oz TOPIC SCH (15:17)
[2016-07-15 16:00] VITALS: BP 135/70
[2016-07-15 20:00] VITALS: BP 121/61
[2016-07-15] MEDS: Atorvastatin 20mg tab ORAL SCH (21:32)
[2016-07-16 01:00] VITALS: BP 128/63
--- NOTE | 2016-07-16 03:38 | Progress Note ---
DATE: 07/15/2016 CARDIOLOGY PROGRESS NOTE SUBJECTIVE: The patient without new complaints. OBJECTIVE: VITAL SIGNS: Afebrile, blood pressure 145/78, pulse 95, and respiratory rate 21. Heart rate ranging from 90 to 112. NECK: Supple. LUNGS: Clear. CARDIAC: Regular rhythm. Rapid rate. Normal S1 and S2. ABDOMEN: Soft. No edema. IMPRESSION: 1. Anemia. 2. Sinus tachycardia. 3. Hypertensive heart disease. 4. Cerebrovascular disease with dementia. 5. Hypothyroidism. PLAN: 1. Recheck CBC. 2. Thyroid panel. 3. Venous duplex. 4. Continue wound care and current medications. Darius Duran M.D. DR: FINA JOB#: [id number] CC:
[2016-07-16 04:51] VITALS: BP 153/83
[2016-07-16] MEDS: Piperacillin/Tazobactam 3.375 GM in D5W 110 ML IVPB SCH (05:10)
[2016-07-16] MEDS: Lactobacillus-GG tablet ORAL SCH ×3 (06:16→21:38)
[2016-07-16] MEDS: sitaGLIPtin 50mg tab ORAL SCH (06:16)
[2016-07-16] MEDS: Levothyroxine 25mcg tab ORAL SCH (06:17)
[2016-07-16] MEDS: NovoLOG Insulin Flexpen SUBQ SCH ×4 (06:27→21:41)
[2016-07-16 07:33] LABS: BASOPHILS % (AUTO) 1.7 % (0.0-2.0); EOSINOPHILS % (AUTO) 2.4 % (0.0-3.0); LYMPHOCYTES % (AUTO) 29.6 % (20.0-45.0); MEAN CORPUSCULAR HEMOGLOBIN 25.2 PG (27.0-31.0); MEAN CORPUSCULAR HGB CONC 32.6 G/DL (32.0-36.0); MEAN CORPUSCULAR VOLUME 77 FL (80-99); MEAN PLATELET VOLUME 10.2 FL (6.5-10.1); MONOCYTES % (AUTO) 8.3 % (1.0-10.0); PLATELET COUNT 411 K/UL (150-450); RED BLOOD COUNT 3.62 M/UL (4.20-5.40); RED CELL DISTRIBUTION WIDTH 18.1 % (11.6-14.8)
--- NOTE | 2016-07-16 08:00 | General Progress Note ---
Assessment/Plan Problem List: (1) Hyperglycemia ICD Codes: R73.9 - Hyperglycemia SNOMED: 50969913 (2) Altered mental status ICD Codes: R41.82 - Altered mental status SNOMED: 696234521 Qualifiers: Qualified Codes: R41.82 - Altered mental status, unspecified (3) Sepsis ICD Codes: A41.9 - Sepsis SNOMED: 76396648 (4) Altered mental status ICD Codes: R41.82 - Altered mental status, unspecified SNOMED: 144332148 Qualifiers: Qualified Codes: R41.0 - Disorientation, unspecified (5) Stroke ICD Codes: I63.9 - Stroke SNOMED: 866090744 Qualifiers: (6) Hypothyroid ICD Codes: E03.9 - Hypothyroid SNOMED: 44059905 Qualifiers: Qualified Codes: E03.9 - Hypothyroidism, unspecified (7) Decubitus ulcer, stage 4 with infection ICD Codes: L89.94 - Pressure ulcer of unspecified site, stage 4 SNOMED: 2892582, 342025500 Status: stable, progressing Assessment/Plan abx per id wound care. turned frequently but turns back on to her buttocks ivf as needed monitor labs monitor h/h may need transfusion. on epo improving Subjective ROS Limited/Unobtainable: No Constitutional: Reports: malaise, weakness HEENT: Reports: no symptoms Cardiovascular: Reports: no symptoms Respiratory: Reports: no symptoms Gastrointestinal/Abdominal: Reports: no symptoms Genitourinary: Reports: no symptoms Neurologic/Psychiatric: Reports: pre-existing deficit Endocrine: Reports: no symptoms Hematologic/Lymphatic: Reports: no symptoms Allergies: Coded Allergies: HYDROMORPHONE (Verified Allergy, Unknown, 09/21/14) MORPHINE (Unverified Allergy, Unknown, 04/27/16) All Systems: reviewed and negative except above Subjective no events. w/o complaints. denies chest pain or sob. remains on iv abx. pleaant. follows commands. Objective Last 24 Hour Vital Signs Date Time Temp Pulse Resp B/P Pulse Ox O2 Delivery O2 Flow Rate FiO2 07/16/16 04:51 97.4 96 18 153/83 96 Room Air 07/16/16 01:00 97.1 90 18 128/63 90 Room Air 07/15/16 21:32 96 121/61 07/15/16 20:00 97.9 96 20 121/61 98 Room Air 07/15/16 16:00 97.6 88 19 135/70 95 Room Air 07/15/16 12:52 96.7 87 19 131/68 98 Room Air 07/15/16 08:55 97.0 88 19 135/57 98 Room Air 07/15/16 08:24 135/57 07/15/16 08:24 90 135/57 Intake and Output 07/15/16 07/16/16 19:00 07:00 Intake Total 150 ml 480 ml Output Total 300 ml 700 ml Balance -150 ml -220 ml Intake Oral 150 ml 480 ml Output Urine Total 300 ml 700 ml # Voids 1 # Bowel Movements 1 Laboratory Tests 07/16/16 05:40: White Blood Count 10.0, Red Blood Count 3.62L, Hemoglobin 9.1L, Hematocrit 27.9L , Mean Corpuscular Volume 77L, Mean Corpuscular Hemoglobin 25.2L, Mean Corpuscular Hemoglobin Concent 32.6, Red Cell Distribution Width 18.1H, Platelet Count 411, Mean Platelet Volume 10.2H, Neutrophils (%) (Auto) 58.0, Lymphocytes (%) (Auto) 29.6, Monocytes (%) (Auto) 8.3, Eosinophils (%) (Auto) 2.4, Basophils (%) (Auto) 1.7, Sodium Level [Pending], Potassium Level [Pending] , Chloride Level [Pending], Carbon Dioxide Level [Pending], Blood Urea Nitrogen [Pending], Creatinine [Pending], Estimat Glomerular Filtration Rate [Pending], Glucose Level [Pending], Calcium Level [Pending], Magnesium Level [Pending], Total Bilirubin [Pending], Aspartate Amino Transf (AST/SGOT) [Pending], Alanine Aminotransferase (ALT/SGPT) [Pending], Alkaline Phosphatase [Pending], Total Protein [Pending], Albumin [Pending], Globulin [Pending], Thyroid Stimulating Hormone (TSH) [Pending] Height (Feet): 5 Height (Inches): 6.00 Weight (Pounds): 150 Objective General Appearance: WD/WN, alert Neck: supple Cardiovascular: regular rhythm Respiratory/Chest: chest wall non-tender, lungs clear, normal breath sounds, no respiratory distress, no accessory muscle use Abdomen: normal bowel sounds, non tender, soft, no organomegaly, no mass Edema: no edema noted Arm (L), no edema noted Arm (R), no edema noted Leg (L), no edema noted Leg (R), no edema noted Pedal (L), no edema noted Pedal (R), no edema noted Generalized Objective bandage over sacrum wound clean and pink. no discharge ISIDORO BYRNE Jul 16, 2016 08:00
[2016-07-16 08:03] LABS: ALANINE AMINOTRANSFERASE 6 U/L (3-33); ALBUMIN/GLOBULIN RATIO 0.7 (1.0-2.7); ANION GAP 18 (5-15); ASPARTATE AMINO TRANSFERASE 15 U/L (5-40); CALCIUM 8.8 mg/dL (8.6-10.2); CARBON DIOXIDE 21 mEQ/L (20-30); CHLORIDE 100 mEQ/L (98-107); CREATININE 0.6 mg/dL (0.5-0.9); HEMOLYSIS 20; MAGNESIUM 1.6 mg/dL (1.7-2.5); POTASSIUM 4.2 mEQ/L (3.4-4.9); SODIUM 139 mEQ/L (135-145)
[2016-07-16 08:21] VITALS: BP 179/92
[2016-07-16] MEDS: Docusate 250mg cap ORAL SCH ×2 (08:36→17:30)
[2016-07-16] MEDS: ANAGRELIDE 0.5 MG ORAL SCH ×2 (08:36→17:30)
[2016-07-16] MEDS: levETIRAcetam 500mg/5ml Liquid NG SCH ×2 (08:36→21:39)
[2016-07-16] MEDS: metFORMIN 500mg tab ORAL SCH ×2 (08:37→17:31)
[2016-07-16] MEDS: Memantine 10mg tab ORAL SCH (08:37)
[2016-07-16] MEDS: Lisinopril 20mg tab ORAL SCH (08:38)
[2016-07-16] MEDS: Heparin 5000 units/ml inj SUBQ SCH ×2 (08:39→21:40)
[2016-07-16] MEDS: Dakin's 0.5% (Full Strength) 16oz TOPIC SCH (09:00)
--- NOTE | 2016-07-16 10:05 | Infectious Diseases Prog Note ---
Assessment/Plan Assessment/Plan A; Complicated UTI s/p Rx Leukocytosis resolved DM HPN MRSA & VRE colonization Pressure ulcer Fecal impaction P: discontinue Zosyn Subjective ROS Limited/Unobtainable: Yes Allergies: Coded Allergies: HYDROMORPHONE (Verified Allergy, Unknown, 09/21/14) MORPHINE (Unverified Allergy, Unknown, 04/27/16) Objective Vital Signs Last 24 Hour Vital Signs Date Time Temp Pulse Resp B/P Pulse Ox O2 Delivery O2 Flow Rate FiO2 07/16/16 08:38 179/92 07/16/16 08:37 98 179/92 07/16/16 08:21 97.6 98 19 179/92 95 Room Air 07/16/16 04:51 97.4 96 18 153/83 96 Room Air 07/16/16 01:00 97.1 90 18 128/63 90 Room Air 07/15/16 21:32 96 121/61 07/15/16 20:00 97.9 96 20 121/61 98 Room Air 07/15/16 16:00 97.6 88 19 135/70 95 Room Air 07/15/16 12:52 96.7 87 19 131/68 98 Room Air Height (Feet): 5 Height (Inches): 6.00 Weight (Pounds): 150 General Appearance: no acute distress HEENT: mucous membranes moist Respiratory/Chest: lungs clear Cardiovascular: normal rate Abdomen: soft, non tender Extremities: no edema Skin: ulcers, other - stage 4 sacral Neurologic/Psychiatric: alert, responsive Laboratory Tests Test 07/16/16 05:40 White Blood Count 10.0 K/UL (4.8-10.8) Red Blood Count 3.62 M/UL (4.20-5.40) L Hemoglobin 9.1 G/DL (12.0-16.0) L Hematocrit 27.9 % (37.0-47.0) L Mean Corpuscular Volume 77 FL (80-99) L Mean Corpuscular Hemoglobin 25.2 PG (27.0-31.0) L Mean Corpuscular Hemoglobin Concent 32.6 G/DL (32.0-36.0) Red Cell Distribution Width 18.1 % (11.6-14.8) H Platelet Count 411 K/UL (150-450) Mean Platelet Volume 10.2 FL (6.5-10.1) H Neutrophils (%) (Auto) 58.0 % (45.0-75.0) Lymphocytes (%) (Auto) 29.6 % (20.0-45.0) Monocytes (%) (Auto) 8.3 % (1.0-10.0) Eosinophils (%) (Auto) 2.4 % (0.0-3.0) Basophils (%) (Auto) 1.7 % (0.0-2.0) Sodium Level 139 mEQ/L (135-145) Potassium Level 4.2 mEQ/L (3.4-4.9) Chloride Level 100 mEQ/L (98-107) Carbon Dioxide Level 21 mEQ/L (20-30) Anion Gap 18 (5-15) H Blood Urea Nitrogen 11 mg/dL (7-23) Creatinine 0.6 mg/dL (0.5-0.9) Estimat Glomerular Filtration Rate mL/min (>60) Glucose Level 79 mg/dL (74-106) Calcium Level 8.8 mg/dL (8.6-10.2) Magnesium Level 1.6 mg/dL (1.7-2.5) L Total Bilirubin < 0.2 mg/dL (0.0-1.2) Aspartate Amino Transf (AST/SGOT) 15 U/L (5-40) Alanine Aminotransferase (ALT/SGPT) 6 U/L (3-33) Alkaline Phosphatase 59 U/L (35-104) Total Protein 6.0 g/dL (6.6-8.7) L Albumin 2.5 g/dL (3.5-5.2) L Globulin 3.5 g/dL Albumin/Globulin Ratio 0.7 (1.0-2.7) L Thyroid Stimulating Hormone (TSH) 1.770 uIU/mL (0.300-4.500) Current Medications Medications (Trade) Dose Ordered Sig/Rupert Route PRN Reason Start Time Stop Time Status Last Admin Dose Admin Acetaminophen (Tylenol) 500 mg Q6H PRN ORAL Mild Pain/Temp > 100.5 05/30/16 20:15 07/25/16 20:14 07/07/16 19:21 Amlodipine Besylate (Norvasc) 5 mg Q12HR ORAL 04/27/16 21:00 07/25/16 20:59 07/16/16 08:37 Anagrelide HCl (Agrylin) 0.5 mg BID ORAL 07/04/16 09:00 08/03/16 08:59 07/16/16 08:36 Atorvastatin Calcium (Lipitor) 20 mg BEDTIME ORAL 04/27/16 21:00 07/25/16 20:59 07/15/16 21:32 Clonidine HCl (Catapres) 0.1 mg Q4H PRN ORAL For High Blood Pressure 06/19/16 14:30 07/19/16 14:29 07/10/16 08:18 Docusate Sodium (Colace) 250 mg BID ORAL 07/04/16 09:00 08/03/16 08:59 07/16/16 08:36 Epoetin Luis (Procrit (for non ESRD use)) 3,000 units SUN-SUN-SUN SUBQ 07/14/16 21:00 08/13/16 20:59 07/14/16 21:43 Ferrous Sulfate (Feosol) 325 mg THREE TIMES A DAY ORAL 04/28/16 09:00 07/25/16 08:59 07/16/16 08:36 Guaifenesin/ Dextromethorphan 10 ml 10 ml Q4H PRN ORAL For Cough 07/06/16 23:15 08/05/16 23:14 07/07/16 22:33 Heparin Sodium (Porcine) (Heparin 5000 units/ml) 5,000 units EVERY 12 HOURS SUBQ 04/27/16 21:00 07/25/16 20:59 07/16/16 08:39 Insulin Aspart (NovoLOG) BEFORE MEALS AND HS SUBQ 04/27/16 21:00 07/25/16 20:59 07/15/16 21:32 Lactobacillus Acidophilus (Culturelle) 1 tab Q8HR ORAL 04/27/16 22:00 07/25/16 21:59 07/16/16 06:16 Levetiracetam (Keppra) 500 mg Q12HR NG 06/24/16 09:00 07/24/16 08:59 07/16/16 08:36 Levothyroxine Sodium (Synthroid) 25 mcg DAILY@0630 ORAL 05/01/16 06:30 07/25/16 06:29 07/16/16 06:17 Levothyroxine Sodium (Synthroid) 150 mcg DAILY@0630 ORAL 05/01/16 06:30 07/25/16 06:29 07/16/16 06:17 Lisinopril (Prinivil) 40 mg DAILY ORAL 05/02/16 09:00 07/25/16 08:59 07/16/16 08:38 Magnesium Hydroxide (Mom) 30 ml DAILYPRN PRN ORAL Constipation 07/04/16 08:45 08/03/16 08:44 07/07/16 11:57 Memantine (Namenda) 10 mg DAILY ORAL 04/28/16 09:00 07/25/16 08:59 07/16/16 08:37 Metformin HCl (Glucophage) 1,000 mg BID ORAL 04/28/16 09:00 07/25/16 08:59 07/16/16 08:37 Piperacillin Sod/ Tazobactam Sod/ Dextrose (Zosyn/D5W) 110 ml @ 27.5 mls/hr Q8HR IVPB 07/10/16 14:00 07/17/16 13:59 07/16/16 05:10 Sitagliptin Phosphate (Januvia) 50 mg ACBREAKFAST ORAL 07/12/16 06:30 08/11/16 06:29 07/16/16 06:16 Sodium Hypochlorite (Dakin's Full Strength) 1 applic DAILY TOPIC 05/29/16 16:00 07/25/16 15:59 07/15/16 15:17 Sodium Phosphate (Fleet's Sodium Phosl Enema) 133 ml DAILYPRN PRN RECTAL constipation 07/05/16 12:30 08/04/16 12:29 07/05/16 13:52 EFRAIN GARCIA Jul 16, 2016 10:05
[2016-07-16 12:31] VITALS: BP 147/76
[2016-07-16 16:00] VITALS: BP 128/66
[2016-07-16 20:00] VITALS: BP 133/61
[2016-07-16] MEDS: Atorvastatin 20mg tab ORAL SCH (21:38)
[2016-07-17] VITALS: BP 138/66
--- NOTE | 2016-07-17 02:18 | Progress Note ---
DATE: 07/16/2016 CARDIOLOGY PROGRESS NOTE SUBJECTIVE: The patient is without new complaints. No distress. Tolerating diet. OBJECTIVE: GENERAL: Afebrile. VITAL SIGNS: Blood pressure 128/66, pulse 116, and respirations 18. NECK: Supple. LUNGS: Clear. CARDIAC: Regular rhythm. Rapid rate. Normal S1 and S2. ABDOMEN: Soft. EXTREMITIES: No edema. LABORATORY DATA: Sodium 139, potassium 4.2, bicarbonate 18, BUN 11, and creatinine 0.6. Magnesium is 1.6. Albumin is 2.5. TSH is 1.77. White count is 10, hemoglobin 9.1, and platelets are 411,000. Venous duplex is pending. IMPRESSION: 1. Hypomagnesemia. 2. Sinus tachycardia. 3. Recovering sepsis from urinary tract infection. 4. Essential thrombocytosis corrected with anagrelide. 5. Type 2 diabetes mellitus. PLAN: 1. Intravenous magnesium. 2. Insulin titration. 3. Continue current antihypertensive. 4. Follow up EKG and venous duplex scan. 5. Consider beta-mine. Darius Duran M.D. DR: FREDERICK JOB#: [id number] CC:
[2016-07-17 04:00] VITALS: BP 132/61
[2016-07-17] MEDS: sitaGLIPtin 50mg tab ORAL SCH (05:57)
[2016-07-17] MEDS: Lactobacillus-GG tablet ORAL SCH ×3 (05:57→21:29)
[2016-07-17] MEDS: Levothyroxine 25mcg tab ORAL SCH (05:58)
[2016-07-17] MEDS: NovoLOG Insulin Flexpen SUBQ SCH ×4 (06:30→20:32)
[2016-07-17 08:00] VITALS: BP 120/59
[2016-07-17] MEDS: levETIRAcetam 500mg/5ml Liquid NG SCH ×2 (08:30→20:29)
[2016-07-17] MEDS: ANAGRELIDE 0.5 MG ORAL SCH ×2 (08:31→17:27)
[2016-07-17] MEDS: Docusate 250mg cap ORAL SCH ×2 (08:31→17:26)
[2016-07-17] MEDS: Memantine 10mg tab ORAL SCH (08:31)
[2016-07-17] MEDS: metFORMIN 500mg tab ORAL SCH ×2 (08:31→17:27)
[2016-07-17] MEDS: Lisinopril 20mg tab ORAL SCH (08:32)
[2016-07-17] MEDS: Heparin 5000 units/ml inj SUBQ SCH ×2 (08:34→20:31)
--- NOTE | 2016-07-17 10:56 | Infectious Diseases Prog Note ---
"Assessment/Plan Assessment/Plan antibiotics : none A 1. 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 CVA 5. DM 6. HTN 7. e.coli | pseudomonas UTI s/p rx 8. leucocytosis improving P 1. continue off antibiotics Subjective ROS Limited/Unobtainable: Yes Allergies: Coded Allergies: HYDROMORPHONE (Verified Allergy, Unknown, 09/21/14) MORPHINE (Unverified Allergy, Unknown, 04/27/16) Objective Vital Signs Last 24 Hour Vital Signs Date Time Temp Pulse Resp B/P Pulse Ox O2 Delivery O2 Flow Rate FiO2 07/17/16 08:32 126/59 07/17/16 08:32 88 126/59 07/17/16 08:00 97.2 88 19 120/59 96 Room Air 07/17/16 04:00 97.7 78 18 132/61 100 Room Air 07/17/16 00:00 97.0 87 20 138/66 100 Room Air 07/16/16 21:39 98 133/61 07/16/16 20:00 97.7 98 18 133/61 99 Room Air 07/16/16 16:00 97.9 116 17 128/66 96 Room Air 07/16/16 12:31 97.0 106 19 147/76 95 Room Air Height (Feet): 5 Height (Inches): 6.00 Weight (Pounds): 150 Respiratory/Chest: lungs clear Cardiovascular: normal rate, regular rhythm, no gallop/murmur Abdomen: soft, non tender Extremities: no edema ALESSIO KRISHNAMURTHY Jul 17, 2016 10:56"
[2016-07-17] MEDS: Dakin's 0.5% (Full Strength) 16oz TOPIC SCH (11:21)
[2016-07-17 12:00] VITALS: BP 142/74
--- NOTE | 2016-07-17 12:55 | General Progress Note ---
Assessment/Plan Problem List: (1) Hyperglycemia ICD Codes: R73.9 - Hyperglycemia SNOMED: 10605336 (2) Altered mental status ICD Codes: R41.82 - Altered mental status SNOMED: 715210962 Qualifiers: Qualified Codes: R41.82 - Altered mental status, unspecified (3) Sepsis ICD Codes: A41.9 - Sepsis SNOMED: 03523678 (4) Altered mental status ICD Codes: R41.82 - Altered mental status, unspecified SNOMED: 989641172 Qualifiers: Qualified Codes: R41.0 - Disorientation, unspecified (5) Stroke ICD Codes: I63.9 - Stroke SNOMED: 160026616 Qualifiers: (6) Hypothyroid ICD Codes: E03.9 - Hypothyroid SNOMED: 13113219 Qualifiers: Qualified Codes: E03.9 - Hypothyroidism, unspecified (7) Decubitus ulcer, stage 4 with infection ICD Codes: L89.94 - Pressure ulcer of unspecified site, stage 4 SNOMED: 0185741, 222819116 Assessment/Plan monitor off abx wound care. turned frequently but turns back on to her buttocks ivf as needed monitor labs monitor h/h may need transfusion. on epo improving ok for dc Subjective ROS Limited/Unobtainable: No Constitutional: Reports: malaise, weakness HEENT: Reports: no symptoms Cardiovascular: Reports: no symptoms Respiratory: Reports: no symptoms Gastrointestinal/Abdominal: Reports: no symptoms Genitourinary: Reports: no symptoms Neurologic/Psychiatric: Reports: pre-existing deficit Endocrine: Reports: no symptoms Hematologic/Lymphatic: Reports: no symptoms Allergies: Coded Allergies: HYDROMORPHONE (Verified Allergy, Unknown, 09/21/14) MORPHINE (Unverified Allergy, Unknown, 04/27/16) All Systems: reviewed and negative except above Subjective no events. w/o complaints. denies chest pain or sob. completed iv abx. pleaant. follows commands. h/h better Objective Last 24 Hour Vital Signs Date Time Temp Pulse Resp B/P Pulse Ox O2 Delivery O2 Flow Rate FiO2 07/17/16 12:00 97.8 95 19 142/74 100 Room Air 07/17/16 08:32 126/59 07/17/16 08:32 88 126/59 07/17/16 08:00 97.2 88 19 120/59 96 Room Air 07/17/16 04:00 97.7 78 18 132/61 100 Room Air 07/17/16 00:00 97.0 87 20 138/66 100 Room Air 07/16/16 21:39 98 133/61 07/16/16 20:00 97.7 98 18 133/61 99 Room Air 07/16/16 16:00 97.9 116 17 128/66 96 Room Air Intake and Output 07/16/16 07/17/16 19:00 07:00 Intake Total 150 ml 240 ml Output Total 650 ml Balance 150 ml -410 ml Intake Oral 150 ml 240 ml Output Urine Total 650 ml Height (Feet): 5 Height (Inches): 6.00 Weight (Pounds): 150 Objective General Appearance: WD/WN, alert Neck: supple Cardiovascular: regular rhythm Respiratory/Chest: chest wall non-tender, lungs clear, normal breath sounds, no respiratory distress, no accessory muscle use Abdomen: normal bowel sounds, non tender, soft, no organomegaly, no mass Edema: no edema noted Arm (L), no edema noted Arm (R), no edema noted Leg (L), no edema noted Leg (R), no edema noted Pedal (L), no edema noted Pedal (R), no edema noted Generalized Objective bandage over sacrum wound clean and pink. no discharge ISIDORO BYRNE Jul 17, 2016 12:55
--- NOTE | 2016-07-17 13:12 | Wound Care Consultation ---
Wound Assessment Wound Assessment : Wound Number: #1 Wound Present on Admission: Yes New Wound: No Status Change of Wound: No Wound Location Body Site Modif: mid Wound Location Body Site: sacral Wound Type: pressure ulcer Gloria Test: Does not Gloria Pressure Ulcer Stage: IV/unstageable Incisional Wounds: Dehisced Incision Wound Thickness: Full Thickness Wound Length: 9.0 Wound Width: 9.0 Wound Depth: 2.5 Percent of Wound Alva/Red: 95 Percent of Wound Bed Yellow/Wh: 5 Wound Drainage Description: Serosanguineous Wound Drainage Amount: Moderate Wound Drainage Odor: Mild Odor Tissue Surrounding Wound: Macerated Wound Undermining at 12:00: 2.0 Wound Undermining at 3:00: 1.0 - noted wound bed attaching Wound General Appearance: Reddened, Draining, Bone Palpable, Incision Dehiscence Wound Comment #1 sacral non- healing pressure ulcer stage IV/Unstageable s/p dehiscence incision. Upon reassessment noted good progress to wound site. wound bed beefy red/pink.no foul odor, noted good progress , no further deterioration present. remains clean and dry. dressing remains dry and intact. tolerated wound care well, denies any pain or discomfort , no moans, grunts noted. patient was cleaned and reposition.tolerated wound care well. SAMMIE BARLOW Jul 17, 2016 13:12
[2016-07-17 16:00] VITALS: BP 146/75
[2016-07-17 20:00] VITALS: BP 134/68
[2016-07-17] MEDS: Atorvastatin 20mg tab ORAL SCH (20:30)
[2016-07-17] MEDS: Epogen (for non ESRD use) SUBQ SCH (20:33)
[2016-07-18] VITALS: BP 146/69
[2016-07-18 04:00] VITALS: BP 153/82
--- NOTE | 2016-07-18 04:39 | Progress Note ---
DATE: 07/17/2016 CARDIOLOGY PROGRESS NOTE: SUBJECTIVE: Vital signs stable. No tachycardia today. Afebrile. She continued with wound care. Insulin coverage by sliding scale. Medication regimen is optimized. Laboratories were rechecked yesterday and magnesium supplementation given. The patient remains stable for lower level of care. Consults with discharge planning service today was undertaken with options discussed to be reviewed with the son once disposition is available. Darius Duran M.D. DR: Mahesh JOB#: [id number] CC:
[2016-07-18] MEDS: sitaGLIPtin 50mg tab ORAL SCH (05:44)
[2016-07-18] MEDS: Lactobacillus-GG tablet ORAL SCH ×4 (05:44→21:38)
[2016-07-18] MEDS: Levothyroxine 25mcg tab ORAL SCH (05:45)
[2016-07-18] MEDS: NovoLOG Insulin Flexpen SUBQ SCH ×4 (06:22→21:00)
[2016-07-18] MEDS: Dakin's 0.5% (Full Strength) 16oz TOPIC SCH (07:17)
[2016-07-18] MEDS: metFORMIN 500mg tab ORAL SCH ×2 (08:47→18:20)
[2016-07-18] MEDS: Docusate 250mg cap ORAL SCH ×2 (08:47→18:20)
[2016-07-18] MEDS: Memantine 10mg tab ORAL SCH (08:47)
[2016-07-18] MEDS: ANAGRELIDE 0.5 MG ORAL SCH ×2 (08:47→18:20)
[2016-07-18] MEDS: levETIRAcetam 500mg/5ml Liquid NG SCH ×2 (08:47→21:38)
[2016-07-18 08:55] VITALS: BP 120/80
[2016-07-18] MEDS: Lisinopril 20mg tab ORAL SCH (08:55)
[2016-07-18] MEDS: Heparin 5000 units/ml inj SUBQ SCH ×2 (08:57→21:42)
--- NOTE | 2016-07-18 10:40 | Infectious Diseases Prog Note ---
"Assessment/Plan Assessment/Plan antibiotics : none A 1. 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 CVA 5. DM 6. HTN 7. e.coli | pseudomonas UTI s/p rx 8. leucocytosis improving P 1. continue off antibiotics Subjective ROS Limited/Unobtainable: Yes Allergies: Coded Allergies: HYDROMORPHONE (Verified Allergy, Unknown, 09/21/14) MORPHINE (Unverified Allergy, Unknown, 04/27/16) Objective Vital Signs Last 24 Hour Vital Signs Date Time Temp Pulse Resp B/P Pulse Ox O2 Delivery O2 Flow Rate FiO2 07/18/16 08:56 89 145/78 07/18/16 08:55 96.6 84 20 120/80 97 Room Air 07/18/16 08:55 145/78 07/18/16 04:00 97.9 94 18 153/82 97 Room Air 07/18/16 00:00 97.3 90 18 146/69 97 Room Air 07/17/16 20:30 96 134/68 07/17/16 20:00 97.8 96 20 134/68 98 Room Air 07/17/16 16:00 97.2 84 20 146/75 96 Room Air 07/17/16 12:00 97.8 95 19 142/74 100 Room Air Height (Feet): 5 Height (Inches): 6.00 Weight (Pounds): 150 Respiratory/Chest: lungs clear Cardiovascular: normal rate, regular rhythm, no gallop/murmur Abdomen: soft, non tender Extremities: no edema ALESSIO KRISHNAMURTHY Jul 18, 2016 10:40"
[2016-07-18 12:51] VITALS: BP 139/71
--- NOTE | 2016-07-18 13:10 | General Progress Note ---
Assessment/Plan Problem List: (1) Hyperglycemia ICD Codes: R73.9 - Hyperglycemia SNOMED: 79214329 (2) Altered mental status ICD Codes: R41.82 - Altered mental status SNOMED: 124157670 Qualifiers: Qualified Codes: R41.82 - Altered mental status, unspecified (3) Sepsis ICD Codes: A41.9 - Sepsis SNOMED: 37557226 (4) Altered mental status ICD Codes: R41.82 - Altered mental status, unspecified SNOMED: 835405313 Qualifiers: Qualified Codes: R41.0 - Disorientation, unspecified (5) Stroke ICD Codes: I63.9 - Stroke SNOMED: 442940554 Qualifiers: (6) Hypothyroid ICD Codes: E03.9 - Hypothyroid SNOMED: 01764822 Qualifiers: Qualified Codes: E03.9 - Hypothyroidism, unspecified (7) Decubitus ulcer, stage 4 with infection ICD Codes: L89.94 - Pressure ulcer of unspecified site, stage 4 SNOMED: 7456490, 548560318 Status: stable, progressing Assessment/Plan monitor off abx wound care. turned frequently but turns back on to her buttocks ivf as needed monitor labs monitor h/h may need transfusion. on epo improving ok for dc d/w son prefers home but would rather not take pt home unless he can get air matress.agrees to snf Subjective ROS Limited/Unobtainable: No Constitutional: Reports: malaise, weakness HEENT: Reports: no symptoms Cardiovascular: Reports: no symptoms Respiratory: Reports: no symptoms Gastrointestinal/Abdominal: Reports: no symptoms Genitourinary: Reports: no symptoms Neurologic/Psychiatric: Reports: pre-existing deficit Endocrine: Reports: no symptoms Hematologic/Lymphatic: Reports: no symptoms Allergies: Coded Allergies: HYDROMORPHONE (Verified Allergy, Unknown, 09/21/14) MORPHINE (Unverified Allergy, Unknown, 04/27/16) All Systems: reviewed and negative except above Subjective no events. w/o complaints. denies chest pain or sob. completed iv abx. pleaant. follows commands. h/h better Objective Last 24 Hour Vital Signs Date Time Temp Pulse Resp B/P Pulse Ox O2 Delivery O2 Flow Rate FiO2 07/18/16 12:51 97.9 112 19 139/71 97 Room Air 3/28/17 10:43 Room Air 07/18/16 10:43 Room Air 21 07/18/16 08:56 89 145/78 07/18/16 08:55 96.6 84 20 120/80 97 Room Air 07/18/16 08:55 145/78 07/18/16 04:00 97.9 94 18 153/82 97 Room Air 07/18/16 00:00 97.3 90 18 146/69 97 Room Air 07/17/16 20:30 96 134/68 07/17/16 20:00 97.8 96 20 134/68 98 Room Air 07/17/16 16:00 97.2 84 20 146/75 96 Room Air Intake and Output 07/17/16 07/18/16 19:00 07:00 Intake Total 480 ml 210 ml Output Total 375 ml 150 ml Balance 105 ml 60 ml Intake Oral 480 ml 210 ml Output Urine Total 375 ml 150 ml # Bowel Movements 3 2 Height (Feet): 5 Height (Inches): 6.00 Weight (Pounds): 150 Objective General Appearance: WD/WN, alert Neck: supple Cardiovascular: regular rhythm Respiratory/Chest: chest wall non-tender, lungs clear, normal breath sounds, no respiratory distress, no accessory muscle use Abdomen: normal bowel sounds, non tender, soft, no organomegaly, no mass Edema: no edema noted Arm (L), no edema noted Arm (R), no edema noted Leg (L), no edema noted Leg (R), no edema noted Pedal (L), no edema noted Pedal (R), no edema noted Generalized Objective bandage over sacrum wound clean and pink. no discharge ISIDORO BYRNE Jul 18, 2016 13:10
[2016-07-18 16:26] VITALS: BP 120/63
[2016-07-18 20:00] VITALS: BP 120/63
[2016-07-18] MEDS: Atorvastatin 20mg tab ORAL SCH (21:39)
[2016-07-19] VITALS: BP 117/60
[2016-07-19 04:00] VITALS: BP 124/76
[2016-07-19] MEDS: Lactobacillus-GG tablet ORAL SCH ×3 (05:40→22:00)
[2016-07-19] MEDS: sitaGLIPtin 50mg tab ORAL SCH (06:07)
[2016-07-19] MEDS: Levothyroxine 25mcg tab ORAL SCH (06:07)
[2016-07-19] MEDS: NovoLOG Insulin Flexpen SUBQ SCH ×4 (06:30→21:00)
[2016-07-19 08:00] VITALS: BP 123/60
[2016-07-19] MEDS: levETIRAcetam 500mg/5ml Liquid NG SCH ×2 (09:11→21:00)
[2016-07-19] MEDS: ANAGRELIDE 0.5 MG ORAL SCH ×2 (09:11→18:47)
[2016-07-19] MEDS: metFORMIN 500mg tab ORAL SCH ×2 (09:12→18:46)
[2016-07-19] MEDS: Docusate 250mg cap ORAL SCH ×2 (09:12→18:47)
[2016-07-19] MEDS: Memantine 10mg tab ORAL SCH (09:12)
[2016-07-19] MEDS: Lisinopril 20mg tab ORAL SCH (09:13)
[2016-07-19] MEDS: Heparin 5000 units/ml inj SUBQ SCH ×2 (09:15→21:00)
[2016-07-19 12:00] VITALS: BP 106/59
--- NOTE | 2016-07-19 13:47 | General Progress Note ---
Assessment/Plan Problem List: (1) Hyperglycemia ICD Codes: R73.9 - Hyperglycemia SNOMED: 58229763 (2) Altered mental status ICD Codes: R41.82 - Altered mental status SNOMED: 792962749 Qualifiers: Qualified Codes: R41.82 - Altered mental status, unspecified (3) Sepsis ICD Codes: A41.9 - Sepsis SNOMED: 27454433 (4) Altered mental status ICD Codes: R41.82 - Altered mental status, unspecified SNOMED: 971459836 Qualifiers: Qualified Codes: R41.0 - Disorientation, unspecified (5) Stroke ICD Codes: I63.9 - Stroke SNOMED: 134961217 Qualifiers: (6) Hypothyroid ICD Codes: E03.9 - Hypothyroid SNOMED: 42350719 Qualifiers: Qualified Codes: E03.9 - Hypothyroidism, unspecified (7) Decubitus ulcer, stage 4 with infection ICD Codes: L89.94 - Pressure ulcer of unspecified site, stage 4 SNOMED: 9341290, 748230934 Status: stable, progressing Assessment/Plan monitor off abx wound care. turned frequently but turns back on to her buttocks ivf as needed monitor labs monitor h/h may need transfusion. on epo improving ok for dc d/w son prefers home but would rather not take pt home unless he can get air matress.agrees to snf Subjective ROS Limited/Unobtainable: No Constitutional: Reports: malaise, weakness HEENT: Reports: no symptoms Cardiovascular: Reports: no symptoms Respiratory: Reports: no symptoms Gastrointestinal/Abdominal: Reports: no symptoms Genitourinary: Reports: no symptoms Neurologic/Psychiatric: Reports: pre-existing deficit Endocrine: Reports: no symptoms Hematologic/Lymphatic: Reports: no symptoms Allergies: Coded Allergies: HYDROMORPHONE (Verified Allergy, Unknown, 09/21/14) MORPHINE (Unverified Allergy, Unknown, 04/27/16) All Systems: reviewed and negative except above Subjective no events. w/o complaints. denies chest pain or sob. completed iv abx. pleaant. follows commands. h/h better facility located Objective Last 24 Hour Vital Signs Date Time Temp Pulse Resp B/P Pulse Ox O2 Delivery O2 Flow Rate FiO2 07/19/16 12:00 98.1 99 18 106/59 95 Room Air 07/19/16 11:22 Room Air 21 3/29/17 11:22 Room Air 07/19/16 09:13 126/53 07/19/16 09:13 88 126/53 07/19/16 08:00 96.2 87 16 123/60 97 Room Air 07/19/16 07:05 Room Air 07/19/16 07:05 Room Air 07/19/16 04:00 97.9 90 20 124/76 96 Room Air 07/19/16 03:55 Room Air 07/19/16 03:55 Room Air 07/19/16 00:00 98.0 106 20 117/60 97 Room Air 07/18/16 22:40 Room Air 07/18/16 22:40 Room Air 07/18/16 21:38 80 147/70 07/18/16 20:00 97.3 97 20 120/63 97 Room Air 07/18/16 19:06 Room Air 07/18/16 19:06 Room Air 07/18/16 16:26 97.3 97 20 120/63 97 Room Air 07/18/16 15:22 Room Air 07/18/16 15:22 Room Air Intake and Output 07/18/16 07/19/16 19:00 07:00 Intake Total 320 ml 240 ml Output Total 675 ml 400 ml Balance -355 ml -160 ml Intake Oral 320 ml 240 ml Output Urine Total 675 ml 400 ml # Bowel Movements 1 Height (Feet): 5 Height (Inches): 6.00 Weight (Pounds): 150 Objective General Appearance: WD/WN, alert Neck: supple Cardiovascular: regular rhythm Respiratory/Chest: chest wall non-tender, lungs clear, normal breath sounds, no respiratory distress, no accessory muscle use Abdomen: normal bowel sounds, non tender, soft, no organomegaly, no mass Edema: no edema noted Arm (L), no edema noted Arm (R), no edema noted Leg (L), no edema noted Leg (R), no edema noted Pedal (L), no edema noted Pedal (R), no edema noted Generalized Objective bandage over sacrum wound clean and pink. no discharge ISIDORO BYRNE Jul 19, 2016 13:47
[2016-07-19] MEDS: Dakin's 0.5% (Full Strength) 16oz TOPIC SCH (14:16)
--- NOTE | 2016-07-19 14:52 | Infectious Diseases Prog Note ---
Assessment/Plan Assessment/Plan A; Complicated UTI s/p Rx Leukocytosis resolved DM HPN MRSA & VRE colonization Pressure ulcer Fecal impaction P: agree with discharge Subjective ROS Limited/Unobtainable: Yes Allergies: Coded Allergies: HYDROMORPHONE (Verified Allergy, Unknown, 09/21/14) MORPHINE (Unverified Allergy, Unknown, 04/27/16) Objective Vital Signs Last 24 Hour Vital Signs Date Time Temp Pulse Resp B/P Pulse Ox O2 Delivery O2 Flow Rate FiO2 07/19/16 12:00 98.1 99 18 106/59 95 Room Air 07/19/16 11:22 Room Air 07/19/16 11:22 Room Air 07/19/16 09:13 126/53 07/19/16 09:13 88 126/53 07/19/16 08:00 96.2 87 16 123/60 97 Room Air 07/19/16 07:05 Room Air 07/19/16 07:05 Room Air 07/19/16 04:00 97.9 90 20 124/76 96 Room Air 07/19/16 03:55 Room Air 07/19/16 03:55 Room Air 07/19/16 00:00 98.0 106 20 117/60 97 Room Air 07/18/16 22:40 Room Air 07/18/16 22:40 Room Air 07/18/16 21:38 80 147/70 07/18/16 20:00 97.3 97 20 120/63 97 Room Air 07/18/16 19:06 Room Air 07/18/16 19:06 Room Air 07/18/16 16:26 97.3 97 20 120/63 97 Room Air 07/18/16 15:22 Room Air 07/18/16 15:22 Room Air Height (Feet): 5 Height (Inches): 6.00 Weight (Pounds): 150 General Appearance: no acute distress HEENT: mucous membranes moist Respiratory/Chest: lungs clear Cardiovascular: normal peripheral pulses Abdomen: soft, non tender Skin: ulcers, other - sacral Neurologic/Psychiatric: other - sleeping Current Medications Medications (Trade) Dose Ordered Sig/Rupert Route PRN Reason Start Time Stop Time Status Last Admin Dose Admin Acetaminophen (Tylenol) 500 mg Q6H PRN ORAL Mild Pain/Temp > 100.5 05/30/16 20:15 07/25/16 20:14 07/07/16 19:21 Amlodipine Besylate (Norvasc) 5 mg Q12HR ORAL 04/27/16 21:00 07/25/16 20:59 07/19/16 09:13 Anagrelide HCl (Agrylin) 0.5 mg BID ORAL 07/04/16 09:00 08/03/16 08:59 07/19/16 09:11 Atorvastatin Calcium (Lipitor) 20 mg BEDTIME ORAL 04/27/16 21:00 07/25/16 20:59 07/18/16 21:39 Docusate Sodium (Colace) 250 mg BID ORAL 07/04/16 09:00 08/03/16 08:59 07/19/16 09:12 Epoetin Luis (Procrit (for non ESRD use)) 3,000 units SUN-SUN-SUN SUBQ 07/14/16 21:00 08/13/16 20:59 07/17/16 20:33 Ferrous Sulfate (Feosol) 325 mg THREE TIMES A DAY ORAL 04/28/16 09:00 07/25/16 08:59 07/19/16 14:34 Guaifenesin/ Dextromethorphan (Robitussin DM) 10 ml Q4H PRN ORAL For Cough 07/06/16 23:15 08/05/16 23:14 07/07/16 22:33 Heparin Sodium (Porcine) (Heparin 5000 units/ml) 5,000 units EVERY 12 HOURS SUBQ 04/27/16 21:00 07/25/16 20:59 07/19/16 09:15 Insulin Aspart (NovoLOG) BEFORE MEALS AND HS SUBQ 04/27/16 21:00 07/25/16 20:59 07/19/16 12:39 Lactobacillus Acidophilus (Culturelle) 1 tab Q8HR ORAL 04/27/16 22:00 07/25/16 21:59 07/19/16 14:34 Levetiracetam (Keppra) 500 mg Q12HR NG 06/24/16 09:00 07/24/16 08:59 07/19/16 09:11 Levothyroxine Sodium (Synthroid) 25 mcg DAILY@0630 ORAL 05/01/16 06:30 07/25/16 06:29 07/19/16 06:07 Levothyroxine Sodium (Synthroid) 150 mcg DAILY@0630 ORAL 05/01/16 06:30 07/25/16 06:29 07/19/16 06:07 Lisinopril (Prinivil) 40 mg DAILY ORAL 05/02/16 09:00 07/25/16 08:59 07/19/16 09:13 Magnesium Hydroxide (Mom) 30 ml DAILYPRN PRN ORAL Constipation 07/04/16 08:45 08/03/16 08:44 07/07/16 11:57 Memantine (Namenda) 10 mg DAILY ORAL 04/28/16 09:00 07/25/16 08:59 07/19/16 09:12 Metformin HCl (Glucophage) 1,000 mg BID ORAL 04/28/16 09:00 07/25/16 08:59 07/19/16 09:12 Sitagliptin Phosphate (Januvia) 50 mg ACBREAKFAST ORAL 07/12/16 06:30 08/11/16 06:29 07/19/16 06:07 Sodium Hypochlorite (Dakin's Full Strength) 1 applic DAILY TOPIC 05/29/16 16:00 07/25/16 15:59 07/19/16 14:16 Sodium Phosphate (Fleet's Sodium Phosl Enema) 133 ml DAILYPRN PRN RECTAL constipation 07/05/16 12:30 08/04/16 12:29 07/05/16 13:52 EFRAIN GARCIA Jul 19, 2016 14:52
[2016-07-19 16:00] VITALS: BP 138/68
[2016-07-19 20:38] VITALS: BP 142/63
[2016-07-19] MEDS: Epogen (for non ESRD use) SUBQ SCH (21:00)
[2016-07-19] MEDS: Atorvastatin 20mg tab ORAL SCH (21:00)
[2016-07-20] VITALS: BP 141/62
[2016-07-20 04:00] VITALS: BP 150/78
[2016-07-20] MEDS: NovoLOG Insulin Flexpen SUBQ SCH ×2 (06:30→11:24)
[2016-07-20] MEDS: sitaGLIPtin 50mg tab ORAL SCH (06:36)
[2016-07-20] MEDS: Levothyroxine 25mcg tab ORAL SCH (06:37)
[2016-07-20] MEDS: Lactobacillus-GG tablet ORAL SCH ×2 (06:37→13:11)
[2016-07-20 08:08] VITALS: BP 150/67
[2016-07-20] MEDS: metFORMIN 500mg tab ORAL SCH (08:24)
[2016-07-20] MEDS: ANAGRELIDE 0.5 MG ORAL SCH (08:24)
[2016-07-20] MEDS: Docusate 250mg cap ORAL SCH (08:24)
[2016-07-20] MEDS: Lisinopril 20mg tab ORAL SCH (08:24)
[2016-07-20] MEDS: levETIRAcetam 500mg/5ml Liquid NG SCH (08:25)
[2016-07-20] MEDS: Memantine 10mg tab ORAL SCH (08:25)
[2016-07-20] MEDS: Dakin's 0.5% (Full Strength) 16oz TOPIC SCH (08:25)
[2016-07-20] MEDS: Heparin 5000 units/ml inj SUBQ SCH (08:30)
--- NOTE | 2016-07-20 09:50 | General Progress Note ---
Assessment/Plan Problem List: (1) Hyperglycemia ICD Codes: R73.9 - Hyperglycemia SNOMED: 33374279 (2) Altered mental status ICD Codes: R41.82 - Altered mental status SNOMED: 699304057 Qualifiers: Qualified Codes: R41.82 - Altered mental status, unspecified (3) Sepsis ICD Codes: A41.9 - Sepsis SNOMED: 45712691 (4) Altered mental status ICD Codes: R41.82 - Altered mental status, unspecified SNOMED: 002546857 Qualifiers: Qualified Codes: R41.0 - Disorientation, unspecified (5) Stroke ICD Codes: I63.9 - Stroke SNOMED: 967537262 Qualifiers: (6) Hypothyroid ICD Codes: E03.9 - Hypothyroid SNOMED: 16610944 Qualifiers: Qualified Codes: E03.9 - Hypothyroidism, unspecified (7) Decubitus ulcer, stage 4 with infection ICD Codes: L89.94 - Pressure ulcer of unspecified site, stage 4 SNOMED: 4473413, 715149812 Status: stable, progressing Assessment/Plan monitor off abx wound care. turned frequently but turns back on to her buttocks ivf as needed monitor labs monitor h/h may need transfusion. on epo improving ok for dc d/w son prefers home but would rather not take pt home unless he can get air matress.agrees to snf Subjective ROS Limited/Unobtainable: No Constitutional: Reports: malaise, weakness HEENT: Reports: no symptoms Cardiovascular: Reports: no symptoms Respiratory: Reports: no symptoms Gastrointestinal/Abdominal: Reports: no symptoms Genitourinary: Reports: no symptoms Neurologic/Psychiatric: Reports: pre-existing deficit Endocrine: Reports: no symptoms Hematologic/Lymphatic: Reports: no symptoms Allergies: Coded Allergies: HYDROMORPHONE (Verified Allergy, Unknown, 09/21/14) MORPHINE (Unverified Allergy, Unknown, 04/27/16) All Systems: reviewed and negative except above Subjective no events. w/o complaints. denies chest pain or sob. completed iv abx. pleasant. follows commands. h/h better facility located. Objective Last 24 Hour Vital Signs Date Time Temp Pulse Resp B/P Pulse Ox O2 Delivery O2 Flow Rate FiO2 07/20/16 08:25 89 150/67 07/20/16 08:24 150/67 07/20/16 08:08 97.6 89 19 150/67 97 Room Air 07/20/16 07:57 Room Air 07/20/16 07:56 Room Air 07/20/16 04:00 97.4 83 20 150/78 97 Room Air 07/20/16 03:29 Room Air 21 07/20/16 03:29 Room Air 07/20/16 00:00 98.0 83 20 141/62 100 Room Air 07/19/16 23:21 Room Air 07/19/16 23:21 Room Air 07/19/16 20:38 97.9 84 18 142/63 97 Room Air 07/19/16 19:20 Room Air 07/19/16 19:20 Room Air 21 07/19/16 16:00 98.1 91 18 138/68 97 Room Air 07/19/16 15:30 Room Air 07/19/16 15:30 Room Air 07/19/16 12:00 98.1 99 18 106/59 95 Room Air 07/19/16 11:22 Room Air 07/19/16 11:22 Room Air Intake and Output 07/19/16 07/20/16 19:00 07:00 Intake Total 480 ml 300 ml Output Total 300 ml 500 ml Balance 180 ml -200 ml Intake Oral 480 ml 300 ml Output Urine Total 300 ml 500 ml # Bowel Movements 1 Height (Feet): 5 Height (Inches): 6.00 Weight (Pounds): 150 Objective General Appearance: WD/WN, alert Neck: supple Cardiovascular: regular rhythm Respiratory/Chest: chest wall non-tender, lungs clear, normal breath sounds, no respiratory distress, no accessory muscle use Abdomen: normal bowel sounds, non tender, soft, no organomegaly, no mass Edema: no edema noted Arm (L), no edema noted Arm (R), no edema noted Leg (L), no edema noted Leg (R), no edema noted Pedal (L), no edema noted Pedal (R), no edema noted Generalized Objective bandage over sacrum wound clean and pink. no discharge ISIDORO BYRNE Jul 20, 2016 09:50
[2016-07-20 12:00] VITALS: BP 155/83
--- NOTE | 2016-07-20 22:25 | Cardiology Report ---
APPROVED REPORT EKG Measurement Heart [id number] WA [id number] [id number] Normal sinus rhythm Normal ECG
--- NOTE | 2016-07-21 01:28 | Progress Note ---
DATE: 07/20/2016 SUBJECTIVE: Vitals stable. No nausea or vomiting. No chest pain or shortness of breath. Tolerating diet. OBJECTIVE: Vitals remained stable. Labs reviewed from July 16, 2016. The patient is to complete recovery at the [facility] facility. Discharge medication regimen reviewed and reconciled. Darius Duran M.D. DR: SELVIN JOB#: [id number] CC:
--- NOTE | 2016-07-21 17:05 | Discharge Summary ---
Discharge Summary Hospital Course Date of Admission Apr 27, 2016 at 14:41 Date of Discharge Jul 20, 2016 at 14:45 Admitting Diagnosis WOUND INFECTION , CELLULITIES HPI Keyanna Mitchell is a 81 year old female who was admitted on Apr 27, 2016 at 14:41 for Wound Infection,Cellulitis Hospital Course [id number] Discharge Discharge Disposition Patient was discharged to snf Discharge Diagnoses: Iris Youssef NP Jul 21, 2016 17:05
--- NOTE | 2016-07-22 02:18 | Discharge Summary 2 SIG ---
DATE OF ADMISSION: 04/27/2016 DATE OF DISCHARGE: 07/20/2016 ADDENDUM TO THE DISCHARGE SUMMARY: CONSULTANTS: 1. Herbert George M.D. 2. Rhett Torres M.D. 3. Darius Duran M.D. BRIEF HOSPITAL COURSE: The patient underwent revision of sacral flap and was stable for discharge. She was given wound treatment, but there was difficulty looking for patient's placement secondary to the patient's insurance and family. She was accepted to SNF, however, son refused transfer and changed his mind and would like to take the patient home. Arrangements were made but the son had issues regarding overlay mattress. The patient was again referred to another facility and son appealed the discharge. Appeal was denied and the patient was eventually transferred to SNF. ADMISSION DIAGNOSES: 1. Infected sacral flap. 2. Stroke. 3. Hypertension. 4. Diabetes. 5. Failure to thrive. 6. Encephalopathy. 7. Dementia. DISCHARGE DIAGNOSES: 1. 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 2. Stroke. 3. Hypertension. 4. Diabetes. 5. Failure to thrive. 6. Acute on chronic metabolic encephalopathy. 7. Dementia. 8. Hypothyroidism. 9. Sepsis. 10. Decubitus ulcer stage 4, present on admission. 11. Complicated urinary tract infection. 12. Fecal impaction. 13. Diabetes mellitus. 14. Old cerebrovascular accident. 15. Hypomagnesemia . 16. Anemia of chronic disease and chronic kidney disease. 17. Essential thrombocytosis. 18. Hypertensive heart disease. 19. Sinus tachycardia. Dennis Gonzalez M.D. I have been assigned to dictate discharge summary on this account and I was not involved in the patient's management. Iris Youssef N.P. DR: Kieran JOB#: [id number] CC: ELAINE
--- NOTE | 2016-07-26 10:34 | Diagnostic Imaging Report ---
APPROVED REPORT CPT Code: 22079 Present Symptoms Comments: Pain BILATERAL: Imaging reveals a patent deep venous system bilaterally. There is no evidence of thrombus within the femoral, popliteal or tibial segments. The greater saphenous veins are also within normal limits. Doppler indicates normal spontaneous flow within these segments.
== END 2016-07-20 14:45 | DRG 853 ==
LOC: ENRESERVDT → ENRESERVTM → EDBD 12:43 → EMR 13:05 → EDBEDREQ 14:26 → 4W 14:41 → EDBEDREQ 17:09
PROC: 0JQ70ZZ Repair Back Subcutaneous Tissue and Fascia, Open Approach (ICD-10-PCS; principal; 2016-05-01 11:30)
DX: A41.9 Sepsis, unspecified organism (principal); L89.154 Pressure ulcer of sacral region, stage 4; G93.41 Metabolic encephalopathy; I13.0 Hypertensive heart and chronic kidney disease with heart failure and stage 1 through stage 4 chronic kidney disease, or unspecified chronic kidney disease; T81.30XA Disruption of wound, unspecified, initial encounter; I50.30 Unspecified diastolic (congestive) heart failure; E44.0 Moderate protein-calorie malnutrition; N39.0 Urinary tract infection, site not specified; B95.62 Methicillin resistant Staphylococcus aureus infection as the cause of diseases classified elsewhere; Z86.73 Personal history of transient ischemic attack (TIA), and cerebral infarction without residual deficits; E11.40 Type 2 diabetes mellitus with diabetic neuropathy, unspecified; E11.65 Type 2 diabetes mellitus with hyperglycemia; E11.22 Type 2 diabetes mellitus with diabetic chronic kidney disease; N18.9 Chronic kidney disease, unspecified; F01.50 Vascular dementia, unspecified severity, without behavioral disturbance, psychotic disturbance, mood disturbance, and anxiety; E03.9 Hypothyroidism, unspecified; K21.9 Gastro-esophageal reflux disease without esophagitis; R62.7 Adult failure to thrive; E83.42 Hypomagnesemia; D63.1 Anemia in chronic kidney disease; D47.3 Essential (hemorrhagic) thrombocythemia; R00.0 Tachycardia, unspecified; K56.41 Fecal impaction; B96.20 Unspecified Escherichia coli [E. coli] as the cause of diseases classified elsewhere
CPT/HCPCS: 36415; 71010; 74000; 80048; 80053; 80202; 81001; 81003; 82962; 83735; 83880; 84443; 85007; 85025; 85044; 85610; 85730; 87040; 87070; 87081; 87086; 87181; 87205; 87493; 93005; 93970; 94003; 94150; 94640; 94664; 94760; J1815; J7620

== ENCOUNTER 2018-06-03 12:46 | Inpatient (IN) | payer MEDICAID, MEDICARE ==
[~2018-06-03] VITALS: Ht 175.3 cm; Wt 95.3 kg
[~2018-06-03 12:46] MED LIST changes: +INVANZ1 GM IM; -NS Irrig 1000ml ONE; -Sterile Water Irrig 1000ml IRRIG ONE; +VANCOMYCIN1 GM/250 M IVPB
--- NOTE | 2018-06-03 13:00 | NUR ---
ED Nurse Note: Pt brought in by son c/o possible UTI, pt's son states she is being treated w/ antibiotics at home and pt is usually more alert and able to tolerate po well but states there is change in neuro status. Pt AA&ox1, gcs=14, skin warm and dry, resp even and unlabored on RA, -n/v/d, on bed rest, noted colostomy bag on LLQ, centeno 16g with cloudy yellow urine with sediments and gtube. Will cont monitor. NSR on shelter monitor.
[2018-06-03 13:05] VITALS: BP 144/52
--- NOTE | 2018-06-03 13:05 | NUR ---
ED Nurse Note: noted pressure ulcer on saccral area with foul smell, unstageable, full thickness tissue loss, wound covered with yellow and chen slough, unable to measure depth at this time. picture taken.
--- NOTE | 2018-06-03 13:05 | NUR ---
Note aydin in EDM - 06/04/18 at 0006 by [facility] ED Nurse Note: noted pessure ulcer with foul smell, unstageable, full thickness tissue loss, wound covered with yellow and chen slough and
[2018-06-03] MEDS ORDERED: Cefepime HCl 2 GM in NS 110 ML IV SCH (13:15)
--- NOTE | 2018-06-03 14:30 | NUR ---
ED Nurse Note: lab called for blood draw.
--- NOTE | 2018-06-03 14:38 | Emergency Room Report ---
History of Present Illness General Chief Complaint: Female Urogenital Problems Source: Family Member Present Illness HPI Patient is an 83-year-old female brought in by family member after increased generalized weakness and altered mental status. 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 He was noted to be less responsive as well as having decreased urine output. patient was noted to have recent hospitalization. She was noted to have increased cloudy urine and has a chronic indwelling Patel catheter.Patient was noted to be more confused than baseline. Patient was noted to be able to follow simple commands. Allergies: Coded Allergies: HYDROMORPHONE (Verified Allergy, Unknown, 09/21/14) MORPHINE (Unverified Allergy, Unknown, 04/27/16) Patient History Past Medical History: see triage record Last Menstrual Period: na Reviewed Nursing Documentation: PMH: Agreed; PSxH: Agreed Nursing Documentation-PMH Past Medical History: No History, Except For Hx Hypertension: Yes Hx Diabetes: Yes Hx Cancer: No Hx Gastrointestinal Problems: Yes Hx Cerebrovascular Accident: Yes Hx Dementia: Yes Hx Memory Loss: Yes Hx Weakness: Yes Review of Systems All Other Systems: negative except mentioned in HPI Physical Exam Vital Signs Date Time Temp Pulse Resp B/P (MAP) Pulse Ox O2 Delivery O2 Flow Rate FiO2 06/03/18 12:56 97.0 79 18 81/49 96 Room Air Sp02 EP Interpretation: reviewed, normal General Appearance: alert, Chronically Ill Head: atraumatic ENT: normal ENT inspection, dry mucus membranes Neck: normal inspection, supple, no bony tend, limited range of motion Respiratory: normal inspection, no respiratory distress, no retraction, rales Cardiovascular #1: regular rate, rhythm, no edema Gastrointestinal: normal bowel sounds, non tender, soft, no guarding, no hernia , other - colostomy Genitourinary: no CVA tenderness Musculoskeletal: back normal, decreased range of motion Neurologic: alert, responsive Psychiatric: judgement/insight normal, mood/affect normal Skin: other - sacral decubitus Medical Decision Making Diagnostic Impression: Primary Impression: Altered mental status Additional Impressions: Dehydration Myeloproliferative disorder ER Course Patient presented for altered mental status. Differential diagnosis included but was not limited to ischemic stroke, subarachnoid hemorrhage, hypoglycemia, spinal cord injury, neurodegenerative disorder, urinary tract infection, hypoxemia. Because of complexity of patient's case laboratory testing and imaging studies were ordered. Patient was started on IV fluids.Patient was given IV antibiotics. Patient was endorsed to Dr. Daniel pending labs for likely admission due to altered mental status and dehydration. Last Vital Signs Date Time Temp Pulse Resp B/P (MAP) Pulse Ox O2 Delivery O2 Flow Rate FiO2 06/03/18 12:56 97.0 79 18 81/49 96 Room Air Status: unchanged Disposition: ADMITTED INPATIENT Condition: Serious Duncan Funk MD Jun 03, 2018 14:38
--- NOTE | 2018-06-03 15:00 | NUR ---
ED Nurse Note: ATTEMPTED IV 2X, UNABLE TO GAIN ACCESS TO IV, ERMD NOTIFIED.
[2018-06-03 15:05] VITALS: BP 117/47
--- NOTE | 2018-06-03 15:30 | NUR ---
ED Nurse Note: IV VIA LEFT EJ INSERTED BY DR. FERNANDO, PATENT AND INTACT, PT TOLERATED WELL, 20G, FLUSHED WITH 10CC NS. DRESSING APPLIED.
[2018-06-03 16:15] LABS: APPEARANCE,URINE SLIGHTLY CLOUDY; BILIRUBIN, URINE NEGATIVE (NEGATIVE); GLUCOSE, URINE (UA) NEGATIVE (NEGATIVE); KETONES,URINE 1+ (NEGATIVE); LEUKOCYTE ESTERASE ,URINE 3+ (NEGATIVE); NITRITE,URINE NEGATIVE (NEGATIVE); PH,URINE 5 (4.5-8.0); PROTEIN,URINE 4+ (NEGATIVE); UROBILINOGEN,URINE NORMAL MG/DL (0.0-1.0)
[2018-06-03 16:16] LABS: ANION GAP 10 mmol/L (5-15); BLOOD UREA NITROGEN 85 mg/dL (7-18); CALCIUM 8.6 MG/DL (8.5-10.1); CARBON DIOXIDE 22 MMOL/L (21-32); CHLORIDE 93 MMOL/L (98-107); CREATININE 1.9 MG/DL (0.55-1.30); POTASSIUM 5.1 MMOL/L (3.5-5.1); SODIUM 125 MMOL/L (136-145)
[2018-06-03 16:17] LABS: COLOR,URINE PALE YELLOW
[2018-06-03 16:18] LABS: HEMATOCRIT 29.1 % (37.0-47.0); HEMOGLOBIN 9.4 G/DL (12.0-16.0); MEAN CORPUSCULAR VOLUME 79 FL (80-99); PLATELET COUNT 907 K/UL (150-450); RED BLOOD COUNT 3.69 M/UL (4.20-5.40); WHITE BLOOD COUNT 18.1 K/UL (4.8-10.8)
[2018-06-03 16:29] LABS: ALANINE AMINOTRANSFERASE 7 U/L (12-78); ALBUMIN 1.7 G/DL (3.4-5.0); ALBUMIN/GLOBULIN RATIO 0.3 (1.0-2.7); ALKALINE PHOSPHATASE 80 U/L (46-116); ASPARTATE AMINO TRANSFERASE 18 U/L (15-37); BILIRUBIN,TOTAL 0.4 MG/DL (0.2-1.0); CKMB 2.3 NG/ML (0.0-3.6); CREATINE KINASE 661 U/L (26-308); PHOSPHORUS 4.1 MG/DL (2.5-4.9)
[2018-06-03 16:39] LABS: INR 1.1 (0.9-1.1)
--- NOTE | 2018-06-03 17:00 | NUR ---
ED Nurse Note: report given to Ramila by CHANG Betancourt/
--- NOTE | 2018-06-03 17:20 | NUR ---
ED Nurse Note: pt transferred to tele, all belongings sent with pt, no neuro changes, vss, resp even and unlabored, son at the bedside.
[2018-06-03 17:30] VITALS: BP 140/63
--- NOTE | 2018-06-03 17:30 | NUR ---
NURSE NOTES: Received pt from ED accompanied by [employer]AT [employer] DECK HAND rayo Betancourt ,alert oriented to name only,noted no resp distress or discomfort,SR on the monitor,IV hL to LT Ext Jug intact with IV antibiotic Cefepime running,sin warm and dry ,SR up x2 HOB elevated ,bed lock in lowest position will continue with plans of care.
--- NOTE | 2018-06-03 17:31 | Diagnostic Imaging Report ---
Indication: Reason For Exam: SOB Technique: One view of the chest Comparison: 07/07/2016 Findings: 4 mm nodule projected in the right midlung probably represents a calcified granuloma. However, there is suggestion of other fainter nodules in the right mid and lower lung, not clearly evident previously. There is better inspiration currently. No infiltrates, effusions, or congestion. The heart size is upper limits normal. The aorta is tortuous and ectatic Impression: No definite acute process Possible right basilar lung nodules. Consider chest CT for further evaluation as clinically indicated. This finding was phoned to Dr. Daniel at the time of interpretation Evidence old granulomatous disease
--- NOTE | 2018-06-03 17:52 | NUR ---
CASE MANAGEMENT: REVIEW 83/F PRESENTED TO ED FROM HOME CC: GENERALIZED WEAKNESS . FEMALE UROGENITAL PROBLEMS SI: UTI . DEHYDRATION . AMS T 97.0 HR 79 RR 18 BP 81/49 SAT 96% ROOM AIR WBC 18.1 H/H 9.4/29.1 NA 125 BUN 85 CR 1.9 IS: NS IVF BOLUS X1 CEFEPIME IV X1 FLAGYL IV X1 PATIENT ADMITTED TO TELEMETRY UNIT 06/03/2018 DCP: PATIENT IS FROM HOME
--- NOTE | 2018-06-03 19:45 | NUR ---
HAND-OFF: Report given to Oscar DOWNING.
--- NOTE | 2018-06-03 19:54 | NUR ---
NURSE NOTES: RECEIVED PATIENT ASLEEP, EASILY AROUSABLE, CONFUSED. FALL AND ASPIRATION PRECAUTIONS IN PLACE: CALL LIGHT WITHIN REACH, BED IN LOW POSITION AND BED ALARM ON. WILL CONTINUE WITH PLAN OF CARE.
[2018-06-03 20:00] VITALS: BP 118/50
[2018-06-03] MEDS: NovoLOG Insulin Flexpen SUBQ SCH (21:00)
[2018-06-03] MEDS: Zosyn 3.375gm q8h **Extended infusion IVPB SCH ×2 (22:23)
--- NOTE | 2018-06-03 23:00 | NUR ---
NURSE NOTES: CALLED PATIENT'S SON AND OBTAINED ADMISSION INFORMATION, ALSO PATIENT'S SON WILL BRING HOME MED LIST. DR. AYALA MADE AWARE OF PATIENT'S SACRAL AREA PRESSURE ULCER. WOUND CARE PROTOCOL STARTED.
[2018-06-03] MEDS ORDERED: CARVEDILOL12.5 MG ORAL (23:15)
[2018-06-03] MEDS ORDERED: PLAVIX75 MG ORAL (23:15)
[2018-06-03] MEDS ORDERED: VITAMIN C500 M1 ORAL (23:15)
[2018-06-03] MEDS ORDERED: NORCO 5-325 TA1 EACH ORAL (23:19)
[2018-06-03] MEDS ORDERED: LEVEMIR FL100 UNIT/1 SUBQ (23:19)
[2018-06-03] MEDS ORDERED: MAG-OXIDE400 M1 PO (23:19)
[2018-06-04] VITALS: BP 114/54
[2018-06-04] MEDS ORDERED: Piperacillin/Tazobactam 2.25 GM in D5W 55 ML IV SCH ×2
[2018-06-04] MEDS ORDERED: FUROSEMIDE40 MG ORAL (01:17)
[2018-06-04] MEDS ORDERED: DOCUSATE SODIU100 MG ORAL (01:17)
[2018-06-04] MEDS ORDERED: ZINC SULFATE220 M2 ORAL (01:26)
[2018-06-04] MEDS ORDERED: HUMALOG100 UNIT/4 SUBQ (01:26)
[2018-06-04] MEDS ORDERED: OLANZAPINE5 MG ORAL (01:26)
[2018-06-04 04:00] VITALS: BP 135/61
[2018-06-04] MEDS: Zosyn 3.375gm q8h **Extended infusion IVPB SCH ×2 (05:07)
[2018-06-04] MEDS: NovoLOG Insulin Flexpen SUBQ SCH ×2 (06:26→11:30)
[2018-06-04] MEDS ORDERED: NovoLOG Insulin Flexpen SUBQ SCH ×2 (06:30→16:30)
--- NOTE | 2018-06-04 07:45 | NUR ---
HAND-OFF: Report given to Neal KEARNYE RN. PATIENT AWAKE, RESTING IN BED, NO SIGNS OF DISTRESS NOTED.
[2018-06-04 08:00] VITALS: BP 132/59
[2018-06-04 12:00] VITALS: BP 125/56
--- NOTE | 2018-06-04 12:06 | NUR ---
RD ASSESSMENT & RECOMMENDATIONS SEE CARE ACTIVITY FOR COMPLETE ASSESSMENT DAILY ESTIMATED NEEDS: Needs based on Wound, bed bound 63.6 27-32 kcals/kg 9842-8357 total kcals 1.25-1.5 g protein/kg 80-95 g total protein 25-30ml/kcal mL/kg 5239-4503 total fluid mLs NUTRITION DIAGNOSIS: 1) Increase KCAL, protein, and micronutrient needs r/t wound healing as evidenced by pt admitted w/ full thickness sacral wound. 2) Altered nutrition related lab values R/T clinical conditions as evidenced by elev WBC (18.1), low Na (125), elev BUN(85), elev Creat (1.9). PO DIET RECOMMENDATIONS: CHIEF CONSOLE OPERATOR eval for oral diet ENTERAL NUTRITION RECOMMENDATIONS: Glucerna 1.5 @48ml/hr x24 hrs to provide 1152ml, 1728 kcal, 95g prot, 874ml free H2O - As medically able, start Glucerna 1.5 @18ml/hr x6 hrs - Advance as tolerated 10ml/hr q4-6 hrs to goal - Flush per MD/ HOB over 30 degrees ADDITIONAL RECOMMENDATIONS: - F/up w/ H&P and WC eval - HgA1C for eval, h/o DM - Wound care: MILLIE BID + VIt C 250mg daily - CHIEF CONSOLE OPERATOR eval of appropriate for oral diet - Monitor lytes, need for TF change
--- NOTE | 2018-06-04 12:21 | NUR ---
NURSE NOTES: Patient transferred to [facility]. Report given to CHANG Schaffer. I endorsed to the receiving RN that the son does not want Dr. Duran to be the patient's attending physician. The son is aware that he needs to find a physician that has privileges at the hospital and will accept attending physician responsibilities. Patient was in stable condition, IV was intact and patent, and she did not display any signs of distress or SOB upon discharge.
--- NOTE | 2018-06-04 12:29 | NUR ---
NURSE NOTES: Received patient from Tele. With no sob. Awake. with Left IJ IV access. with GT intact. made comfortable. Call light made within reach. Will cont to monitor pt. Dr. Duran contacted regarding a diet order and reported abnormal WBC, NA level .awaiting for response.
--- NOTE | 2018-06-04 13:15 | NUR ---
NURSE NOTES: WOUND CARE NOTES:Pt presents with full thickness pressure injury to Sacrum present on admission. (L)7.6cm x (W)8.3x(D)5.5cm undermining 10-3 by 8.8cm @1o'clock. Bone visible with scattered thompson slough ,small necrotic area of approx 5% noted. Wound is malodorous. Periwound indurated ,maroon with additional scattered partial and full thickness wounds with slough,total area on buttocks measuring (L)14cm x (W)16cm. DTPI R heel (L)6cm x (W)6.3cm. Wound bed maroon with fluctuance periwound extending into plantar aspect of heel. Pt verbalized tenderness when minimally palpated. Non-blanching erythema with fluctuance noted to L heel .Non-tender when palpated. Tx.Plan:Loosely pack sacral wound with Dakin's 0.125% ivone soaked kerlix. Apply Triad paste periwound.Cover with ABD pad and secure with Tegaderm drsg Twice daily and prn. Apply Cavilon SKin Barrier to R heel .Cover with Optifoam drsg .Change every 7 days and prn. Apply Cavilon Skin Barrier to L heel .Cover with Optifoam drsg . Change every 7 days and prn. Reposition at least every 2 hours or as tolerated. Off-load heels with pillow. APM/ALEJANDRO mattress overlay.
[2018-06-04] MEDS ORDERED: Piperacillin/Tazobactam 3.375 GM in NS 110 ML IVPB SCH (14:00)
[2018-06-04 15:09] LABS: HEMATOCRIT 27.6 % (37.0-47.0); HEMOGLOBIN 8.6 G/DL (12.0-16.0); MEAN CORPUSCULAR VOLUME 80 FL (80-99); PLATELET COUNT 823 K/UL (150-450); RED BLOOD COUNT 3.45 M/UL (4.20-5.40); RED CELL DISTRIBUTION WIDTH 24.1 % (11.6-14.8); WHITE BLOOD COUNT 11.6 K/UL (4.8-10.8)
[2018-06-04 15:10] LABS: BASOPHILS % (AUTO) 1.9 % (0.0-2.0); EOSINOPHILS % (AUTO) 3.8 % (0.0-3.0); LYMPHOCYTES % (AUTO) 18.1 % (20.0-45.0); MONOCYTES % (AUTO) 4.2 % (1.0-10.0)
[2018-06-04 15:37] LABS: ALANINE AMINOTRANSFERASE 8 U/L (12-78); ALBUMIN 1.5 G/DL (3.4-5.0); ALBUMIN/GLOBULIN RATIO 0.3 (1.0-2.7); ALKALINE PHOSPHATASE 73 U/L (46-116); ANION GAP 11 mmol/L (5-15); ASPARTATE AMINO TRANSFERASE 14 U/L (15-37); BILIRUBIN,TOTAL 0.5 MG/DL (0.2-1.0); BLOOD UREA NITROGEN 70 mg/dL (7-18); CALCIUM 8.7 MG/DL (8.5-10.1); CARBON DIOXIDE 20 MMOL/L (21-32); CHLORIDE 101 MMOL/L (98-107); CREATININE 1.4 MG/DL (0.55-1.30); POTASSIUM 4.5 MMOL/L (3.5-5.1); SODIUM 132 MMOL/L (136-145)
--- NOTE | 2018-06-04 16:37 | NUR ---
NURSE NOTES: Son at bedside. Interfering with care. Refusing GT feeding to be started. Verbalizes wants to change attending Physician. Dr. Dejesus aware. will see patient
[2018-06-04] MEDS ORDERED: Lactobacillus-GG tablet ORAL SCH (18:00)
[2018-06-04] MEDS ORDERED: Aggrenox Cap ORAL SCH (18:00)
--- NOTE | 2018-06-04 18:44 | NUR ---
NURSE NOTES: Dr. Duran saw patient. son at bedside. upset. Stating did not want Dr. Duran as the attending MD for his mom. explained he would need to find a new MD that would take over. verbalized he will leave AMA instead. risk and benefits noted. Charge nurse and bottling supervisor aware. belongings with patient. no IV access.
--- NOTE | 2018-06-04 18:55 | Consultation ---
History of Present Illness General Date patient seen: Jun 04, 2018 Reason for Hospitalization: Female Urogenital Problems Present Illness HPI 83 year old female with multiple medial comorbidities who is care dependant presented with altered mental status and weakness. on admission noted to have large sacral decubitus ulcer that will require care. surgery called to evaluate and assist with care/management. patient seen, chart reviewed, patient examined. Allergies: Coded Allergies: HYDROMORPHONE (Verified Allergy, Unknown, 09/21/14) MORPHINE (Unverified Allergy, Unknown, 04/27/16) Medication History Scheduled Amlodipine Besylate (Norvasc), 10 MG ORAL DAILY, (Reported) Ascorbic Acid* (Vitamin C*), 500 MG ORAL DAILY, (Reported) Atorvastatin Calcium* (Lipitor*), 20 MG ORAL BEDTIME, (Reported) Carvedilol* (Carvedilol*), 12.5 MG ORAL EVERY 12 HOURS, (Reported) Clopidogrel Bisulfate* (Plavix*), 75 MG ORAL DAILY, (Reported) Dipyridamole/Aspirin (Aggrenox 25 mg-200 mg Capsule), 1 CAP ORAL TWICE A DAY, ( Reported) Docusate Sodium* (Docusate Sodium*), 100 MG ORAL TWICE A DAY, (Reported) Ertapenem Sodium* (INVanz*), 1 GM IM Q24H Ferrous Sulfate* (Ferrous Sulfate*), 325 MG ORAL THREE TIMES A DAY, (Reported) Furosemide* (Lasix*), 40 MG ORAL DAILY, (Reported) Heparin Sod (Porcine) (Heparin Sodium*), 5,000 UNITS SUBQ EVERY 12 HOURS, ( Reported) Lactobacillus Acidophilus/Pect (Acidophilus-Pectin Capsule), 1 EACH PO Q8HR, ( Reported) Levothyroxine Sodium* (Levothyroxine Sodium*), 150 MCG ORAL DAILY@0630 Lisinopril (Lisinopril*), 40 MG ORAL DAILY, (Reported) Magnesium Oxide (Mag-Oxide), 400 MG PO BID, (Reported) Memantine Hcl* (Namenda*), 5 MG ORAL DAILY, (Reported) Metformin Hcl* (Metformin Hcl*), 1,000 MG ORAL BID, (Reported) Metoprolol Succinate* (Metoprolol Succinate*), 50 MG ORAL DAILY, (Reported) Vancomycin/0.9% Sod Chloride (Vancomycin-0.9% Nacl 1 G/250), 1 GM IVPB Q24H Zinc Sulfate (Zinc Sulfate), 220 MG ORAL DAILY, (Reported) Scheduled PRN Acetaminophen (Tylenol), 650 MG ORAL EVERY 4 HOURS PRN for For Pain, (Reported) Hydrocodone Bit/Acetaminophen 5-325* ([place] 5-325*), 1 TAB ORAL Q4H PRN for For Pain, (Reported) Olanzapine (Olanzapine), 5 MG ORAL Q6HR PRN for Agitation, (Reported) Miscellaneous Medications Insulin Aspart (Novolog Flexpen), (Reported) Insulin Detemir (Levemir Flexpen), 0 SUBQ, (Reported) Insulin Lispro (Humalog), 0 SUBQ, (Reported) Patient History Limited by: medical condition History Provided By: Patient, Medical Record, PMD Healthcare decision maker SUMIT GREER Resuscitation status Advanced Directive on File Yes Past Medical/Surgical History Past Medical/Surgical History: (1) Pyelonephritis (2) Renal insufficiency (3) Hypertensive emergency (4) Hyperglycemia (5) Altered mental status (6) Stroke (7) Hypothyroid (8) Myeloproliferative disorder (9) Dehydration (10) Altered mental status (11) Sepsis Review of Systems Review of Symptoms General ROS: no weight loss or fever Psychological ROS: no depression or mood changes, no memory loss Ophthalmic ROS: no visual changes or eye irritation ENT ROS: no nasal congestion, hearing loss, dizziness Allergy and Immunology ROS: no allergic symptoms or urticaria Hematological and Lymphatic ROS: no swollen glands, unusual bleeding or bruising Endocrine ROS: no polyuria, polydipsia, weight changes, temperature intolerance Respiratory ROS: no cough, shortness of breath, or wheezing Cardiovascular ROS: no chest pain or dyspnea on exertion Gastrointestinal ROS: denies abdominal pain, bright red blood in stool. Musculoskeletal ROS: no myalgias or arthralgias Neurological ROS: no TIA or stroke symptoms Dermatological ROS: no new or changing skin lesions, rashes or pruritis Physical Exam Physical Exam General appearance: alert, cooperative, no distress, appears stated age Head: Normocephalic, without obvious abnormality, atraumatic Eyes: conjunctivae/corneas clear. PERRL, EOM's intact. Fundi benign Throat: Lips, mucosa, and tongue normal. Teeth and gums normal Neck: supple, symmetrical, trachea midline, no adenopathy, thyroid: not enlarged, symmetric, no tenderness/mass/nodules, no carotid bruit and no JVD Lungs: clear to auscultation bilaterally Heart: regular rate and rhythm, S1, S2 normal, no murmur, click, rub or gallop Abdomen: soft, non-tender. Bowel sounds normal. No masses, no organomegaly Extremities: extremities normal, atraumatic, no cyanosis or edema Pulses: 2+ and symmetric Skin: Skin color, texture, turgor normal. No rashes or lesions Neurologic: Grossly normal Last 24 Hour Vital Signs Date Time Temp Pulse Resp B/P (MAP) Pulse Ox O2 Delivery O2 Flow Rate FiO2 06/04/18 12:00 97.7 76 18 125/56 (79) 97 06/04/18 09:00 Room Air 06/04/18 08:00 98.4 74 18 132/59 (83) 99 06/04/18 07:57 63 06/04/18 04:00 66 06/04/18 04:00 97.9 70 18 135/61 (85) 95 06/04/18 00:00 66 06/04/18 00:00 97.5 64 17 114/54 (74) 97 06/03/18 23:00 Room Air 06/03/18 20:00 71 06/03/18 20:00 97.3 69 18 118/50 (72) 97 Intake and Output 06/03/18 06/04/18 19:00 07:00 Intake Total 702.5 ml Output Total 700 ml Balance 2.5 ml Intake IV Total 702.5 ml Output Urine Total 700 ml # Voids 1 Laboratory Tests Test 06/04/18 14:55 White Blood Count 11.6 K/UL (4.8-10.8) H Red Blood Count 3.45 M/UL (4.20-5.40) L Hemoglobin 8.6 G/DL (12.0-16.0) L Hematocrit 27.6 % (37.0-47.0) L Mean Corpuscular Volume 80 FL (80-99) Mean Corpuscular Hemoglobin 25.0 PG (27.0-31.0) L Mean Corpuscular Hemoglobin Concent 31.2 G/DL (32.0-36.0) L Red Cell Distribution Width 24.1 % (11.6-14.8) H Platelet Count 823 K/UL (150-450) H Mean Platelet Volume 5.5 FL (6.5-10.1) L Neutrophils (%) (Auto) 72.0 % (45.0-75.0) Lymphocytes (%) (Auto) 18.1 % (20.0-45.0) L Monocytes (%) (Auto) 4.2 % (1.0-10.0) Eosinophils (%) (Auto) 3.8 % (0.0-3.0) H Basophils (%) (Auto) 1.9 % (0.0-2.0) Sodium Level 132 MMOL/L (136-145) L Potassium Level 4.5 MMOL/L (3.5-5.1) Chloride Level 101 MMOL/L (98-107) Carbon Dioxide Level 20 MMOL/L (21-32) L Anion Gap 11 mmol/L (5-15) Blood Urea Nitrogen 70 mg/dL (7-18) H Creatinine 1.4 MG/DL (0.55-1.30) H Estimat Glomerular Filtration Rate mL/min (>60) Glucose Level 85 MG/DL (74-106) Calcium Level 8.7 MG/DL (8.5-10.1) Total Bilirubin 0.5 MG/DL (0.2-1.0) Aspartate Amino Transf (AST/SGOT) 14 U/L (15-37) L Alanine Aminotransferase (ALT/SGPT) 8 U/L (12-78) L Alkaline Phosphatase 73 U/L (46-116) Total Protein 5.9 G/DL (6.4-8.2) L Albumin 1.5 G/DL (3.4-5.0) L Globulin 4.4 g/dL Albumin/Globulin Ratio 0.3 (1.0-2.7) L Vitamin B12 Level > 2000 PG/ML (193-986) H Folate 42.6 NG/ML (8.6-58.9) Thyroid Stimulating Hormone (TSH) 7.208 uiU/mL (0.358-3.740) Microbiology Date/Time Source Procedure Growth Status 06/03/18 20:45 Sacral Wound Gram Stain - Final Resulted 06/03/18 20:45 Sacral Wound Wound Culture Pending Resulted Height (Feet): 5 Height (Inches): 9.00 Weight (Pounds): 210 Medications Current Medications Medications (Trade) Dose Ordered Sig/Rupert Route PRN Reason Start Time Stop Time Status Last Admin Dose Admin Acetaminophen (Tylenol) 650 mg Q4H PRN ORAL Mild Pain/Temp > 100.5 06/04/18 16:30 07/04/18 16:29 Dextrose (Dextrose 50%) 25 ml Q30M PRN IV Hypoglycemia 06/04/18 12:45 07/03/18 19:44 Dextrose (Dextrose 50%) 50 ml Q30M PRN IV Hypoglycemia 06/04/18 12:45 07/03/18 19:44 Dipyridamole/ Aspirin (Aggrenox) 1 cap TWICE A DAY ORAL 06/04/18 18:00 07/04/18 17:59 Insulin Aspart (NovoLOG) BEFORE MEALS AND HS SUBQ 06/04/18 16:30 07/03/18 20:59 Lactobacillus Acidophilus (Culturelle) 1 tab TWICE A DAY ORAL 06/04/18 18:00 07/04/18 17:59 Levothyroxine Sodium (Synthroid) 150 mcg DAILY@0630 ORAL 06/05/18 06:30 07/05/18 06:29 Lisinopril (Zestril) 10 mg DAILY ORAL 06/05/18 09:00 07/05/18 08:59 Piperacillin Sod/ Tazobactam Sod 3.375 gm/Sodium Chloride 110 ml @ 27.5 mls/hr EVERY 8 HOURS IVPB 06/04/18 14:00 06/08/18 21:59 06/04/18 14:55 Sodium Chloride 1,000 ml @ 100 mls/hr Q10H IV 06/04/18 16:25 07/04/18 16:24 Assessment/Plan Problem List: (1) Decubitus ulcer of sacral region, stage 4 Assessment & Plan: Pt presents with full thickness pressure injury to Sacrum present on admission. (L)7.6cm x (W)8.3x(D)5.5cm undermining 10-3 by 8.8cm @1o' clock. Bone visible with scattered thompson slough ,small necrotic area of approx 5 % noted. Wound is malodorous. Periwound indurated ,maroon with additional scattered partial and full thickness wounds with slough,total area on buttocks measuring (L)14cm x (W)16cm. DTPI R heel (L)6cm x (W)6.3cm. Wound bed maroon with fluctuance periwound extending into plantar aspect of heel. Non-blanching erythema with fluctuance noted to L heel Tx.Plan: Loosely pack sacral wound with Dakin's 0.125% ivone soaked kerlix. Apply Triad paste periwound.Cover with ABD pad and secure with Tegaderm drsg Twice daily and prn. Apply Cavilon SKin Barrier to R heel .Cover with Optifoam drsg .Change every 7 days and prn. Apply Cavilon Skin Barrier to L heel .Cover with Optifoam drsg . Change every 7 days and prn. Reposition at least every 2 hours or as tolerated. Off-load heels with pillow. APM/ALEJANDRO mattress overlay. ICD Codes: L89.154 - Pressure ulcer of sacral region, stage 4 SNOMED: [id number], [id number] Dylon Gustafson Jun 04, 2018 18:55
--- NOTE | 2018-06-04 20:15 | Progress Note ---
DATE: 06/04/2018 INTERNAL MEDICINE PROGRESS NOTE TIME OF EVALUATION: 3:30 p.m. SUBJECTIVE: The patient was seen earlier this morning and again this afternoon with son at bedside. The patient is awake, alert, and interactive today. The patient's son is asking for a new physician as he is upset at me from prior referrals to Adult Protective Services. In addition, he wants his mother to be able to eat by mouth. I have informed him that the patient is severely malnourished and should continue G-tube feedings and once a swallow evaluation is completed, she can be started possibly on some nutrition by mouth as well. The patient's son has asked me that I did not continue caring for her and the staff has been informed as we are actively looking for replacement physician at this time. The patient is in no distress. She was seen by the surgeon today and wound care protocol has been in place. OBJECTIVE: VITAL SIGNS: Blood pressure 125/56, pulse rate 76, respiratory rate 18, and afebrile. HEENT: Oropharynx clear. Mucous membranes are moist. NECK: Supple. LUNGS: Clear. CARDIAC: Regular rhythm and rate. Normal S1, S2 with a fourth heart sound. ABDOMEN: Soft. Colostomy and G-tube site, intact. EXTREMITIES: Without edema. LABORATORY DATA: Notable for albumin 1.5 and TSH 7.2. BUN 70 and creatinine 1.4. Sodium 132, potassium 4.5, and bicarbonate 20. White count improved as well to 11.6 and hemoglobin 8.6. IMPRESSION: 1. Toxic and metabolic encephalopathies with improvement. 2. Leukocytosis, improved. 3. Anemia, likely chronic. 4. Decreased hemoglobin due to dilution. 5. Dehydration and hyponatremia, improving with hydration. 6. Metabolic acidosis persists due to renal disease. 7. Acute on chronic renal failure, slightly better today. 8. Severe protein-calorie malnutrition, unchanged. 9. 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 10. Chronic urinary tract infection with recovered sepsis. 11. Possible lung nodules. PLAN: 1. Adjust IV fluids. 2. Continue empiric antibiotics. 3. Await final cultures. 4. Continue nutrition by G-tube. Swallowing evaluation requested. 5. Continue wound care. 6. Follow up lab studies. 7. Thyroid replacement. 8. Antiplatelet therapy resumed. 9. Stepwise resumption of antihypertensive as needed. 10. As noted above, I will continue to care for the patient until hospital staff is able to find a replacement physician. Darius Duran M.D. DR: MELA JOB#: [id number] CC:
--- NOTE | 2018-06-04 20:30 | History and Physical Report ---
DATE OF ADMISSION: 06/03/2018 REASON FOR ADMISSION: Sepsis, dehydration, acute renal failure, and encephalopathy. HISTORY OF PRESENT ILLNESS: This is an 83-year-old -[place]ong[place] female. She is known to me from distant care. I was asked to admit her to the hospital today from the emergency room as I was on Panel Physician for Internal Medicine. The patient lives at home with her son. She has been increasingly weak and withdrawn. She apparently is dependent on G-tube nutrition. She was brought into the emergency room with decreasing urine output, foul-smelling urine, and notable cloudy urine in her catheter. The patient also has a chronic sacral wound. PAST MEDICAL HISTORY: 1. Primary thrombocytosis. 2. Hypertension. 3. Cerebrovascular disease with multi-infarct dementia. 4. Type 2 diabetes mellitus. 5. Diabetic neuropathy. 6. Dysphagia with G-tube. 7. History of colon resection and colostomy for diverticular disease. 8. Hypothyroidism. ALLERGIES: Include morphine and hydromorphone. SOCIAL HISTORY: Distant smoker. No alcohol or substance abuse. MEDICATIONS: Prior to admission, reviewed and reconciled, although current list cannot be verified. REVIEW OF SYSTEMS: Not obtainable from the patient at this time. PHYSICAL EXAMINATION: GENERAL: Ill-appearing, alert, but withdrawn. VITAL SIGNS: , pulse 79, and respirations 18, afebrile in the emergency room. Current blood pressure 118/50, pulse 71, and respiratory rate 18. HEENT: Temporal wasting. Arcus senilis. Poor dentition. Poor mouth care. Dry mucous membranes. NECK: Supple. LUNGS: Bilateral breath sounds. BREASTS: Without discrete masses. CARDIAC: Regular rhythm and rate. Normal S1, S2 with a fourth heart sound. ABDOMEN: Soft, G-tube intact. Urinary catheter intact. There is also a colostomy bag noted with some stool. NEUROLOGIC: Reveals contractures, depressed mentation globally. SKIN: defines further, however, there is a large stage IV sacral decubitus. LABORATORY AND DIAGNOSTIC DATA: Sodium 125, potassium 5.1, chloride 93, bicarb 22, BUN 85, creatinine 1.9, glucose 141, albumin 1.7. Troponin negative. Lactic acid 1.3. White count 18.1, hemoglobin 9.4. Urinalysis 20 to 30 white cells with moderate bacteria and many yeasts. Chest x-ray reveals possible nodular densities in the right base, but it is a suboptimal film. IMPRESSION: 1. Metabolic and toxic encephalopathy. 2. Probable sepsis due to urinary tract infection. 3. Hyponatremia. 4. Hypochloremia. 5. Acute on chronic kidney injury. 6. Type 2 diabetes mellitus. 7. Cerebrovascular disease with multi-infarct dementia. 8. Chronic colostomy. 9. Chronic indwelling Patel catheter. 10. Stage IV sacral decubitus. 11. Hypovolemic shock status post successful resuscitation. 12. History of hypothyroidism. 13. Severe protein-calorie malnutrition and dysphagia with G-tube. PLAN: 1. Cardiac monitoring. 2. Volume resuscitation with saline. 3. Panculture. 4. Empiric antibiotics. 5. Skin care. 6. Surgical evaluation for acute care. 7. Swallow evaluation as needed. 8. Nutrition by feeding tube. 9. Check thyroid panel. 10. Hold all antihypertensives. 11. Insulin coverage by sliding scale. 12. Once hydrated, we will resume anti-platelet drugs and we will attempt to obtain recent records from hospitalization at [facility]. Opal Alves JOB#: [id number] CC:
[2018-06-05] MEDS ORDERED: Dakin's 0.125% Soln (Quarter Strength) 16oz TOPIC SCH (09:00)
[2018-06-05] MEDS ORDERED: Lisinopril 10mg tab ORAL SCH (09:00)
--- NOTE | 2018-06-05 11:01 | Discharge Summary ---
Discharge Summary Discharge Summary _ DATE OF ADMISSION: 06/03/2018 DATE OF DISCHARGE: 1219 Patient left AGAINST MEDICAL ADVICE REASON FOR ADMISSION: 83 years old female with past medical history of hypertension, cerebrovascular disease with multi-infarct dementia, type 2 diabetes mellitus, diabetic neuropathy, dysphagia, G-tube, history of colon resection and colostomy for diverticular disease, hypothyroidism, primary thrombocytosis, sacral decubitus ulcer, was brought to emergency room from home with decreased urine output, foul -smelling and cloudy urine Per family report, patient appeared increasingly weak and withdrawn. Upon evaluation in emergency department lvital signs revealed low blood pressure 81/49. Laboratory workup revealed leukocytosis with WBC 18.1, hemoglobin 9.4 , hematocrit 29.1 , platelet count 907. Sodium 125 , potassium 5.1, chloride 93. BUN 85 , creatinine 1.9. Glucose 141 . Albumin 1.7 . Troponin negative . urinalysis revealed evidence of UTI . chest x-ray revealed evidence of old granulomatous disease. No definite acute cardiopulmonary pathology. Possible right basilar lung nodule. Patient was started on IV fluid , pancultured and started on empiric antibiotic for UTI. Patient was admitted for further management CONSULTANTS: surgery Dr. Gustafson [facility] COURSE: Patient admitted to medical surgical floor and started on volume resuscitation with saline solution. Patient was pancultured and started on empiric antibiotics. G-tube feeding was initiated with strict aspiration precautions. Package Reinspector recommendations regarding tube formula, goal rate and protein supplements implemented in plan of care. All antihypertensive medications were on hold. Blood pressure was closely monitored. Blood sugar was managed with sliding scale of insulin. Aggrenox was resumed after initial hydration. Synthroid continued. General surgeon followed for sacral decubitus ulcer stage IV, present on admission. Wound care provided as per surgery recommendation. Patient was turned every 2 hours. Hells were off-loaded with pillows. Mattress overlay provided. Continue wound care recommended by surgeon at home. Son at the bedside decided to sign his mother AGAINST MEDICAL ADVICE. The risks and consequences of signing AGAINST MEDICAL ADVICE were discussed with son in detail. Son verbalized understanding, nevertheless signed AMA form and left. Of note , laboratory workup that day revealed sodium 132, chloride 101, BUN 70, creatinine 1.4. Leukocytosis down to 11.3 , patient remained afebrile. Patient was hemodynamically stable with blood pressure 125/56 prior to leaving the hospital. At the time of this dictation blood culture preliminary negative , wound culture preliminary negative , and urine culture revealed yeast. FINAL DIAGNOSES: Metabolic and toxic encephalopathy-with some improvement Leukocytosis-improved Possible sepsis due to UTI Urinary tract infection Hypovolemic shock, resolved- status post successful resuscitation Hypothyroidism Severe protein calorie malnutrition Dysphagia, G-tube feeding Hyponatremia and hypochloremia -improved Acute on chronic renal failure due to dehydration-improved Type 2 diabetes mellitus Cerebrovascular disease with multi-infarct dementia Chronic colostomy Chronic indwelling Patel catheter Stage IV sacral decubitus ulcer , present on admission Anemia, likely chronic Metabolic acidosis Possible lung nodules I have been assigned to dictate discharge summary for this account. I was not involved in the patient's management. Venus Wilburn NP Jun 05, 2018 11:01
== END 2018-06-04 18:47 | disposition left against medical advice (07) | DRG 871 ==
LOC: EMR 13:33 → 2E 14:58 → EDBEDREQ 15:05 → 4E 06-04 12:18
DX: A41.9 Sepsis, unspecified organism (principal); L89.154 Pressure ulcer of sacral region, stage 4; E43 Unspecified severe protein-calorie malnutrition; G92 Toxic encephalopathy; R57.1 Hypovolemic shock; N39.0 Urinary tract infection, site not specified; E87.1 Hypo-osmolality and hyponatremia; N17.9 Acute kidney failure, unspecified; Z43.1 Encounter for attention to gastrostomy; E86.0 Dehydration; D47.3 Essential (hemorrhagic) thrombocythemia; F01.50 Vascular dementia, unspecified severity, without behavioral disturbance, psychotic disturbance, mood disturbance, and anxiety; E11.40 Type 2 diabetes mellitus with diabetic neuropathy, unspecified; R13.10 Dysphagia, unspecified; I12.9 Hypertensive chronic kidney disease with stage 1 through stage 4 chronic kidney disease, or unspecified chronic kidney disease; Z90.49 Acquired absence of other specified parts of digestive tract; E03.9 Hypothyroidism, unspecified; Z88.6 Allergy status to analgesic agent; E87.8 Other disorders of electrolyte and fluid balance, not elsewhere classified; E11.22 Type 2 diabetes mellitus with diabetic chronic kidney disease; N18.9 Chronic kidney disease, unspecified; Z43.3 Encounter for attention to colostomy; D63.8 Anemia in other chronic diseases classified elsewhere; R91.8 Other nonspecific abnormal finding of lung field; Z68.23 Body mass index [BMI] 23.0-23.9, adult
CPT/HCPCS: 36415; 71045; 80053; 81003; 82550; 82553; 82607; 82746; 82962; 83605; 83735; 84100; 84443; 84484; 85007; 85025; 85610; 85730; 86850; 86900; 86901; 87040; 87070; 87081; 87086; 87181; 87205; 93005; 96365; 96366; 96368; 99285; J1815